=== PATIENT | female | born 1965 | race Caucasian/White ===

== ENCOUNTER → 2018-04-18 15:08 | Outpatient (CLI) | payer MEDICAID, SELFPAY ==
[2018-04-18 13:38] VITALS: BMI 20.3
--- NOTE | 2018-04-18 15:11 | RAD_ITS ---
STUDY: X-RAY - LEFT WRIST REASON FOR EXAM: Female, 52 years old. Pain TECHNIQUE: 3 view(s) of the wrist were obtained. COMPARISON: None. FINDINGS: Normal visualized distal radius and ulna. Normal radiocarpal articulation. Normal distal radioulnar articulation. Normal carpal bones. Normal carpal articulations. There is degenerative arthrosis of the carpometacarpal articulation of the thumb. Normal second through fifth carpometacarpal articulations. Normal visualized metacarpal bones. The soft tissue structures are unremarkable. RAD/Wrist min 3 Views IMPRESSION: Mild degenerative changes of the first metacarpal greater multangular joint. Electronically Signed: Rodney Garcia MD at 16:08 EST , Service support ,
--- NOTE | 2018-04-18 15:15 | RAD_ITS ---
STUDY: X-RAY - RIGHT WRIST REASON FOR EXAM: Female, 52 years old. Pain TECHNIQUE: 3 view(s) of the wrist were obtained. COMPARISON: None. FINDINGS: Normal visualized distal radius and ulna. Normal radiocarpal articulation. Normal distal radioulnar articulation. Normal carpal bones. Normal carpal articulations. Normal carpometacarpal articulation of the thumb. Normal second through fifth carpometacarpal articulations. Normal visualized metacarpal bones. The soft tissue structures are unremarkable. RAD/Wrist min 3 Views IMPRESSION: Normal x-ray examination of the wrist. Electronically Signed: Rodney Garcia MD at 16:38 EST , Service support ,
--- OUTSIDE RECORDS SUMMARY | 2018-06-23 14:26 | XMS RPT_ITS ---
:1965 Author Organization [place] Support Name Relationship Address Phone D Unavailable Unavailable Unavailable REPP, HARJEET Unavailable Unavailable + [place] [address] MARIA ANTONIA ALTAMIRANO Unavailable Unavailable + MARIA ANTONIA ALTAMIRANO Unavailable Unavailable + REPP, HARJEET Unavailable Unavailable + REPP, YARON Unavailable [address] + [place] [address] D Unavailable Unavailable Unavailable REPP, HARJEET Unavailable [facility] + [place] [address] D Unavailable Unavailable Unavailable REPP, HARJEET Unavailable [facility] [address] + [place] [address] D Unavailable Unavailable Unavailable REPP, HARJEET Unavailable [facility] [address] + [place] [address] MARIA ANTONIA ALTAMIRANO Unavailable Unavailable + MARIA ANTONIA ALTAMIRANO Unavailable Unavailable + REPP, HARJEET Unavailable Unavailable + REPP, YARON Unavailable [address] + [place] [address] MARIA ANTONIA PATTON Unavailable Unavailable + MARIA ANTONIA ALTAMIRANO Unavailable [address] + [place] [address] EVELIA MARIA ANTONIA Unavailable [address] + [place] [address] BEATRIS ALTAMIRANOZABETH Unavailable [address] + [place] [address] GHRAM, MARIA ANTONIA Unavailable Unavailable + GHRAM, MARIA ANTONIA Unavailable Unavailable + GHRAM, MARIA ANTONIA Unavailable Unavailable + EVELIA, MARIA ANTONIA Unavailable [address] + [place] [address] EVELIA, MARIA ANTONIA Unavailable [address] + [place] [address] EVELIA, MARIA ANTONIA Unavailable [address] + [place] [address] EVELIA, MARIA ANTONIA Unavailable Unavailable + EVELIA, MARIA ANTONIA Unavailable Unavailable + REPP, HARJEET Unavailable Unavailable + REPP, YARON Unavailable [address] + [place] [address] EVELIA, MARIA ANTONIA Unavailable Unavailable + EVELIA, MARIA ANTONIA Unavailable Unavailable + REPP, HARJEET Unavailable Unavailable + REPP, YARON Unavailable [address] + [place] [address] EVELIA, MARIA ANTONIA Unavailable Unavailable + EVELIA, MARIA ANTONIA Unavailable Unavailable + REPP, HARJEET Unavailable Unavailable + REPP, YARON Unavailable [address] + [place] [address] EVELIA, MARIA ANTONIA Unavailable Unavailable + EVELIA, MARIA ANTONIA Unavailable Unavailable + REPP, HARJEET Unavailable Unavailable + REPP, YARON Unavailable [address] + [place] [address] EVELIA, MARIA ANTONIA Unavailable Unavailable + EVELIA, MARIA ANTONIA Unavailable Unavailable + REPP, HARJEET Unavailable Unavailable + REPP, YARON Unavailable [address] + [place] [address] Care Team Providers Name Role Phone PHUONG MONAHAN, VALERIO Serrano Attending Unavailable VIRGILIO, LUCHO Primary Care Unavailable [employer], MS. TINSLEY Attending Unavailable VIRGILIO, LUCHO Primary Care Unavailable VIRGILIO, LUCHO Attending Unavailable VIRGILIO, LUCHO Primary Care Unavailable VIRGILIO, LUCHO Attending Unavailable VIRGILIO, LUCHO Primary Care Unavailable [facility], DR. TAPIA Attending Unavailable VIRGILIO, LUCHO Primary Care Unavailable [employer], MS. TINSLEY Attending Unavailable VIRGILIO, LUCHO Primary Care Unavailable [employer], MS. TINSLEY Attending Unavailable VIRGILIO, LUCHO Primary Care Unavailable Susana, Dr. Pamela Gloria Admitting Unavailable Susana, Dr. Pamela Gloria Attending Unavailable Eritrean, Dr. Bill Ceballos Attending Unavailable Eritrean, Dr. Bill Ceballos Admitting Unavailable Armani, Dr. Leisa Booth Admitting Unavailable Armani, Dr. Leisa Booth Attending Unavailable Oscar, Dr. Charles Admitting Unavailable Oscar, Dr. Charles Attending Unavailable Elodia, Dr. Shamar Bonilla Admitting Unavailable Elodia, Dr. Shamar Bonilla Attending Unavailable Vaibhav CHEMICAL TEST ENGINEER, Shayy N Admitting Unavailable Vaibhav Shayy DURON Attending Unavailable VAIBHAV, SHAYY AUDREY Admitting Unavailable SUSANAPAMELA Attending Unavailable VAIBHAV, SHAYY AUDREY Referring Unavailable VAIBHAV, SHAYY AUDREY Primary Care Unavailable ABRAHAM PATEL Attending Unavailable VAIBHAV, SHAYY AUDREY Primary Care Unavailable AMANDA LIGHT Attending Unavailable VAIBHAV, SHAYY AUDREY Referring Unavailable VAIBHAV, SHAYY AUDREY Primary Care Unavailable VAIBHAV, SHAYY AUDREY Admitting Unavailable MARY KATE MAURO Attending Unavailable VAIBHAV, SHAYY AUDREY Referring Unavailable VAIBHAV, SHAYY AUDREY Primary Care Unavailable Daryn Murray Attending Unavailable Yuri Salas, Zurdo Referring Unavailable Daryn Murray Attending Unavailable Daryn Murray Referring Unavailable Yuri Salas, Zurdo Primary Care Unavailable Daryn Murray Attending Unavailable Daryn Murray Referring Unavailable Yuri Salas, Zurdo Primary Care Unavailable Daryn Murray Attending Unavailable Kishor, Christa Primary Care Unavailable Daryn Murray Referring Unavailable PROBLEMS PROBLEMS DATE TYPE CONDITION / CODE ATTENDING STATUS SOURCE 04/18/2018 Unknown M25.531 - Pain in Daryn Murray Active [place] right wrist / Community M25.531(ICD-10) Hospital Repository 04/18/2018 Unknown M25.532 - Pain in Daryn Murray Active [place] left wrist / Community M25.532(ICD-10) Hospital Repository 02/21/2018 Admitting Carpal tunnel MAURO, [facility] diagnosis syndrome, bilateral [place] Three upper limbs / Repository G56.03(ICD-10) 02/21/2018 Admitting Pain in right wrist MAURO [facility] diagnosis / M25.531(ICD-10) [place] Three Repository 02/21/2018 Admitting Pain in left wrist / [facility]O, [facility] diagnosis M25.532(ICD-10) [place] Three Repository 02/21/2018 Admitting Anesthesia of skin / MA[facility]O, [facility] diagnosis R20.0(ICD-10) [place] Three Repository 02/21/2018 Admitting Paresthesia of skin MAURO, [facility] diagnosis / R20.2(ICD-10) [place] Repository 12/05/2017 Ad[facility] Three Repository 11/17/2017 Admitting Change in bowel [facility] diagnosis habit / N. Three R19.4(ICD-10) Repository 11/17/2017 Admitting Pain in thoracic [facility] diagnosis spine / N. Three M54.6(ICD-10) Repository 11/17/2017 Admitting Other chronic pain / [facility] diagnosis G89.29(ICD-10) N. Three Repository 11/17/2017 Admitting Pain in left hip / [facility] diagnosis M25.552(ICD-10) N. Three Repository 11/17/2017 Admitting Low back pain / [facility] diagnosis M54.5(ICD-10) N. Three Repository 11/17/2017 Admitting Other intervertebral [facility] diagnosis disc degeneration, N. Three lumbosacral region / Repository M51.37(ICD-10) 11/17/2017 Admitting Cervicalgia / SUSANA [facility] diagnosis M54.2(ICD-10) N. Three Repository 11/17/2017 Admitting Full incontinence of PAMELA MEZA Active [facility] diagnosis feces / N. Three R15.9(ICD-10) Repository 06/08/2017 Admitting Dysuria / LORSON SHARAN, Active [facility] Diagnosis R30.0(ICD-10) MS. CHRISTA Swan Repository PROCEDURES PROCEDURES No Procedure Records FoundRESULTS RESULTS OT GENERAL EVALUATION Observed: 04/26/2018 Status: F Source: [place] 11:58 AM [facility] REPOSITORY [facility] Occupational Therapy [facility] [address] [place] [address] / REHABILITATION SERVICES INITIAL EVALUATION MR#: [id number] Acct: [id number] Name: MARYSE PISANO Rep #: [id number] : 1965 52 From: Jeane Ambrose Referring Dr.: YASMANY Murray Status: REG R Insurance: [employer] Date: SELF PAY INSURANCE Patient's Visit Information MARYSE PISANO is a 52 year old F, referred to Occupational Therapy by YASMANY Simons, with a diagnosis of Bilateral CTS and R lateral epicondylitis. Date of Evaluation: 04/26/18 Occupational Therapist: Jeane Ambrose - Subjective Subjective: Arrived and noted that had nerve conduction in 2018 in [place] at [facility]. She noted that she had positive results for CTS in B wrists. She noted that doctor came in and noted that she had an area of concern in neck and needed to see neurologist. She is concerned about this. She has not since followed up with neurologist. She noted she recently moved from [place] to [place]. - Pain Bilateral Hand 5 Pain Intensity Range: 5 Right Elbow 8 Pain Intensity Range: 8 - Objective Concerns: Pt. noted previous nerve conduction noted B CTS but also cervical involvement in which it was recommended she see a neurologist. Will treat CTS and lateral epicondylitis on R UE but if no relief is noted within 2-4 weeks then treatment will be terminated and she will be sent back to doctor. - ROM Elbow: R 0-126, L 0-131 Forearm: WFL Wrist: Flexion R 0-60, L 0-72; extension R 0-72, L 0-47 CMC: WFL MP: WFL PIP: WFL DIP: WFL ROM Comments: Pain with all movements. - Strength In Home Sales Consultant: flexed position R 58, L 75 ; Extended R 40, L 54 Lateral Pinch: R 10, L 14 Tripod Pinch: R 12, L 14 Tip-to-Tip Pinch: R 8, L 7 Strength Comments: decrease in pain in RUE. - Edema Other: none noted at this time. - Sensation Thumb: R 2.83, L 2.83 Index: R 2.83, L 2.83 Middle: R 2.83, L 2.83 Ring: R 2.83, L 2.83 Little: R 2.83, L 2.83 Kinesthesia: Normal - Right, Normal - Left Proprioception: Normal - Right, Normal - Left - Nine Hole Peg Right: 33.20 S Left: 30.10 S - Special Tests Phalen's (Carpal Tunnel): POSITIVE - Quick DASH-Disab of Arm,Shoulder AND Hand Quick DASH Score: 59.0900 - Carpal Tunnel Syndrome Total Score of Symptom AND Functional Sections: 32 - Goals Goal:: Maryse to increased B manager clinical services strength by 15-20 lbs to promote increased manager clinical services and strengthening for B UE to promote increased ROM by d/c. Goal:: Maryse to complete pain management techniques 4/5 trials 80% of the time to promote increased ability to complete functional tasks by d/c. Goal:: Maryse to demonstrate understanding of proper wrist and UE mechanics to decrease pain and promote function performance 4/5 trials 80% of the time by d/c. Goal:: Maryse to be (i) to complete HEP to promote increased strength and endurance of B UE and manage symptoms of pain 4/5 trials 80% of the time by d/c. Goal:: Melssia to be (i) to understand and demonstrate compensations to complete fx daily tasks to promote decrease in pain and movements that cause increase in symptoms 4/5 trials 80% of the time by d/c. - Rehabilitation General Assessment: Arrived for OT evaluation today, 04/26/18. She has been experiencing symptoms of CTS and lateral epicondylitis for last three months. She noted nerve conduction completed and confirmed CTS in [place]. She noted further cervical involvement. Skilled OT needed to complete treatment to R elbow and B wrists to promote ROM, strength, decrease in pain symptoms, and compensations to manage pain with ADL/IADLS. Rehabilitation Potential: Good - Anticipated Interventions Anticipated Interventions: A/AAROM/PROM, Strengthening, Desensitization, Modalities, Orthoses, Joint Protection/Energy Conservation, Ergonomic Education, Fine Motor Coord/Anibal, ADL Training, Caregiver Training, Home Program - Visit Plan Frequency: 2x /Week Duration: 2-4 Weeks General Plan: OT to work on nerve glide (from wrist down and no cervical involvement until further clarification gained), ROM, strength, and general compensations to promote completing ADL/IADLs in pain free or reduced range. TEXT: Thank you for the opportunity to evaluate your patient. For Medicare and Medicare HMO plans, please review the plan of care and approve it. It will need to be FAXED BACK to us at [phone] for Medicare purposes. Please let me know if there are questions or concerns regarding this plan of care. Physician Signature: Date: <Electronically signed by Jeane Ambrose > 04/26/18 1158 CC: EMILY Iverson; YASMANY Murray KMB Signed For Medicare only, by signing this I certify the plan of care. Physicians Signature Date XR ABDOMEN AP Observed: 04/23/2018 Status: F Source: [facility] 2:35 PM [facility]OUND[facility] REPOSITORY ORIGINAL Supine abdomen and pelvis, one view, 04/23/2018. Clinical information: Lower flank pain LEFT side, constipation. COMPARISON: CT abdomen and pelvis 06/07/2017 There is fecal filling of the large bowel without pathologic distention. Gastric folds are outlined by intraluminal gastric air. There is abdominal aortic arteriosclerotic calcification without addition al pathologic abdominal or pelvic calcification. Caudal lung bases are clear. IMPRESSION: Fecal filling of the colon without features of intestinal obstruction. Interpreted By: Alden Randolph MD Preliminary Report By: Alden Randolph MD Electronically Signed By: Alden Randolph MD Dictated Date: 04/23/2018 2:54:45 PM Prelim Date: 04/23/2018 2:54:45 PM Sign Date: 04/23/2018 2:56:44 PM XR SPINE THORACIC 3 Observed: 04/23/2018 Status: F Source: [facility] VIEWS 2:34 PM [facility] REPOSITORY ORIGINAL XR SPINE THORACIC 3 VIEWS, 04/23/2018 2:50 PM INDICATION: pain, constipation COMPARISON: October 2015 FINDINGS: Alignment is within normal limits. The individual vertebral bodies are intact. There is mild disc space narrowing in the central thoracic spine. IMPRESSION: Mild degenerative disc disease, otherwise unremarkable. No significant interval change. Interpreted By: Alden Pisano MD Preliminary Report By: Alden Pisano MD Electronically Signed By: Alden Pisano MD Dictated Date: 04/23/2018 6:42:06 PM Prelim Date: 04/23/2018 6:42:06 PM Sign Date: 04/23/2018 6:42:44 PM XR SPINE LUMBAR Observed: 04/23/2018 Status: F Source: [facility] W/OBLIQUES 4 VIEWS 2:34 PM [facility] REPOSITORY ORIGINAL XR SPINE LUMBAR W/OBLIQUES 4 VIEWS CLINICAL STATEMENT: pain, constipation. COMPARISON: CT abdomen and pelvis on 06/07/2017. Lumbar spine x-ray series on 07/02/2015. FINDINGS: There are 5 lumbar vertebrae. The lumbar spine alignment is normal. Vertebral bodies have normal shape. Disc spaces are well-maintained. Facet joints show mild degenerative narrowing and spur formation at L4-L5 and L5-S1. There is n o defect of pars interarticularis. Sacroiliac joints are normal. Abdominal aorta is atherosclerotic but nonaneurysmal. IMPRESSION: Mild degenerative facet arthrosis in lower lumbar spine. No subluxation, fracture, or acute findings. IMPRESSION: No compression deformity or significant listhesis. Interpreted By: Jean Pierre Stovall MD Preliminary Report By: Jean Pierre Stovall MD Electronically Signed By: Jean Pierre Stovall MD Dictated Date: 04/24/2018 1:08:06 AM Prelim Date: 04/24/2018 1:08:06 AM Sign Date: 04/24/2018 1:12:13 AM ORTHOPEDIC VISIT Observed: 04/19/2018 Status: F Source: [place] REPORT 12:56 PM [facility] REPOSITORY [facility] [address] [place] [address] [address] [place] [address] OFFICE VISIT Date of Service: 04/18/18 MR#: [id number] Acct: [id number] Name: MARYSE PISANO Rep #: [id number] : 1965 Provider: YASMANY Murray Age/Sex: 52/F [place] [facility] [place] Signed Intake Vital Signs04/18/18 Height 5 ft 3 in 04/18/18 Weight: 115 lb 04/18/18 Body Mass Index (BMI) 20.3 Intake Visit Reasons: bilat carpal tunnel Allergies amitriptyline HCl [From Elavil] Allergy (Verified 06/24/13 21:26) Nausea aspirin [ASA] Allergy (Verified 06/24/13 21:26) Nausea bupropion HCl [From Wellbutrin] Allergy (Verified 06/24/13 21:25) Other etodolac [From Lodine] Allergy (Verified 08/08/14 17:26) Unknown ibuprofen Allergy (Verified 08/08/14 17:26) Unknown Penicillins [PCN] Allergy (Verified 06/24/13 21:25) Hives poison librado extract Allergy (Verified 11/09/14 18:28) Swelling poison oak extract Allergy (Verified 11/09/14 18:28) Swelling rofecoxib [From Vioxx] Allergy (Verified 06/24/13 21:27) Other venom-honey bee [bee venom (honey bee)] Allergy (Verified 11/09/14 18:28) Swelling TAPE Adverse Reaction (Uncoded 11/09/14 18:28) Other Medications Buspirone HCl 20 mg PO TID 01/08/15 [History Confirmed 01/08/15] Clonazepam [Klonopin] 1 mg PO TID PRN PRN 01/08/15 [History Confirmed 01/08/15] Diazepam [Valium] 2 mg PO TID PRN PRN #15 tab 01/08/15 [Rx] Duloxetine HCl 30 mg PO DAILY 01/08/15 [History Confirmed 01/08/15] Duloxetine HCl 60 mg PO DAILY 01/08/15 [History Confirmed 01/08/15] Ibuprofen [Motrin] 800 mg PO TID PRN PRN #20 tab 01/08/15 [Rx] Levothyroxine [Synthroid] 75 mcg PO DAILY 01/08/15 [History Confirmed 01/08/15] Oxycodone HCl/Acetaminophen [Percocet 5/325] 1 - 2 tab PO Q4H PRN PRN #20 tab 01/08/15 [Rx] Pantoprazole Sodium [Protonix] 40 mg PO DAILY 01/08/15 [History Confirmed 01/08/15] traZODone [Desyrel] 1 - 3 tab PO QHS PRN PRN 01/08/15 [History Confirmed 01/08/15] PFSH Social History Smoking Status: Current every day smoker HPI bilat carpal tunnel: Details: MARYSE PISANO is a 52 year old F here today for bilateral carpal tunnel, she had an EMG in February and was told by the neurologist doing the test that she had mild in the left and moderate in the right. There is numbness in the thumb, index and middle fingers as well as weakness and beginning to drop things. She states that she is struggling to be able to use her hands normally. Ortho Exam Right Wrist/Hand Skin/Wound: No Swelling, No Ecchymosis Right Wrist: Yes ROM-Extension 0-60, ROM-Flexion 0-80, ROM- Pronation 0-80, Durken's Test and ROM-Supination 0-90; no Snuffbox tenderness or Josh's Test Motor: EPL: 5, FDP-2: 5, 1st Dorsal Interosseous: 5, APB: 5 Sensation: Radial: I, Ulnar: I, Median: D WRIST: Patient has no evident abnormalities on inspection of the wrist. She has no localized or generalized swelling. She has no bruising, ecchymosis, or other skin changes. Patient has full range of motion of the wrist and full range of motion of the fingers. She does not have any atrophy of the thenar eminence or the hypo-thenar eminence. Patient does have a positive Rebekah's test in office. Left Wrist/Hand Skin/Wound: No Swelling, No Ecchymosis Left Wrist: Yes ROM-Extension 0-60, Yes ROM-Flexion 0-80, Yes ROM-Pronation 0-80, Yes ROM-Supination 0-90 and Yes Durken's Test; no Snuffbox tenderness Motor: EPL: 5, FDP-2: 5, 1st Dorsal Interosseous: 5, APB: 5 Sensation: Radial: I, Ulnar: I, Median: D WRIST: Patient has no evident abnormalities on inspection of the left wrist. She has no localized or generalized swelling. There is no bruising, ecchymosis, or other skin changes. Patient does not have any evident atrophy of the thenar or hypothenar eminence. She has normal range of motion of the wrist in the fingers. She does have a positive Rebekah's test here. Right Elbow ROM: Yes Flexion 0-140, Extension 0, Supination 0-90 and Pronation 0-80 Test: Yes TTP Lateral Epicondyle, Yes Pain w/ resist wrist ext, No Pain w/ resist wrist flex, No Varus Stress Test, No Valgus Stress Test Assessment AND Plan Problems 1. Bilateral carpal tunnel syndrome G56.03 2. Right lateral epicondylitis M77.11 Plan At this time patient does have signs and symptoms consistent with bilateral carpal tunnel syndrome. At this time we do not have the EMG reports and have requested those to be sent to our office so that we are able to look at the other nerve involvement such as the ulnar nerve. At this time though she does not have any atrophy or any weakness suggestive of ulnar involvement. Today in the office we did discuss treatment options for the wrist. She has currently been wearing night splints for the past 3-4 weeks which is something I deafly would like her to continue for the next few weeks. Patient is not interested in any type of injections into the carpal tunnel region at this time. She is not sure that she wants to have surgery at this time either. As a result after discussion we are going to continue with nighttime bracing for another several weeks and will also start her in some occupational therapy to start to work on some strengthening and stabilization of the wrist. At that time she will return to our office with our surgeon to discuss how these conservative measures have worked and whether or not she would like to proceed with carpal tunnel release. She can follow-up sooner and if she has any increasing pain, any swelling of the wrist, worsening numbness or tingling, or any other symptoms. Otherwise we will recheck in probably 1 month. All of patient's questions were answered at this time. This note was generated with [employer] dictation software. It may contain incorrect words, spelling, and punctuation that were not noted in checking the note before signing. Orders Orders: Plan Detail Follow Up 1 Month Coding Level of Care Code Off vis,new,level 3 Diagnoses Bilateral carpal tunnel syndrome G56.03 Right lateral epicondylitis M77.11 04/19/18 1256 <Electronically signed by Daryn JADE> Date Daryn JADE Cosigner Signature: Date (if applicable) CC: WRIST MIN 3 VIEWS Observed: 04/18/2018 Status: F Source: [place] 3:15 PM [facility] REPOSITORY [facility] Imaging Services [address] [place] [id number] Wrist min 3 Views MR#: [id number] Acct: [id number] Name: MARYSE PISANO Rep #: [id number] : 1965 F 52 From: Rodney Garcia MD PCP: Zurdo Welch Jr., MD Status: REG CLI Study: Wrist min 3 Views Date of Exam: 04/18/18 Exam# [id number] Ordering Dr: Daryn Murray STUDY: X-RAY - RIGHT WRIST REASON FOR EXAM: Female, 52 years old. Pain TECHNIQUE: 3 view(s) of the wrist were obtained. COMPARISON: None. FINDINGS: Normal visualized distal radius and ulna. Normal radiocarpal articulation. Normal distal radioulnar articulation. Normal carpal bones. Normal carpal articulations. Normal carpometacarpal articulation of the thumb. Normal second through fifth carpometacarpal articulations. Normal visualized metacarpal bones. The soft tissue structures are unremarkable. RAD/Wrist min 3 Views IMPRESSION: Normal x-ray examination of the wrist. Electronically Signed: Rodney Garcia MD at 16:38 EST , Service support , CC: YASMANY Murray; Zurdo Welch Jr., MD Cane Furniture Maker: Signed WRIST MIN 3 VIEWS Observed: 04/18/2018 Status: F Source: [place] 3:11 PM [facility] REPOSITORY [facility] [place] [address] Wrist min 3 Views MR#: [id number] Acct: [id number] Name: MARYSE PISANO Rep #: [id number] : 1965 F 52 From: Rodney Garcia MD PCP: Zurdo Welch Jr., MD Status: REG CLI Study: Wrist min 3 Views Date of Exam: 04/18/18 Exam# [id number] Ordering Dr: Daryn Murray STUDY: X-RAY - LEFT WRIST REASON FOR EXAM: Female, 52 years old. Pain TECHNIQUE: 3 view(s) of the wrist were obtained. COMPARISON: None. FINDINGS: Normal visualized distal radius and ulna. Normal radiocarpal articulation. Normal distal radioulnar articulation. Normal carpal bones. Normal carpal articulations. There is degenerative arthrosis of the carpometacarpal articulation of the thumb. Normal second through fifth carpometacarpal articulations. Normal visualized metacarpal bones. The soft tissue structures are unremarkable. RAD/Wrist min 3 Views IMPRESSION: Mild degenerative changes of the first metacarpal greater multangular joint. Electronically Signed: Rodney Garcia MD at 16:08 EST , Service support , CC: YASMANY Murray; Zurdo Welch Jr., MD Cane Furniture Maker: Signed CMP Collected: 03/29/2018 Status: F Source: [facility] 4:08 PM [facility]ATION REPOSITORY TYPE CODE TESTS RESULT OUT OF REFERENCE UNITS RANGE LAB GLU(LOINC) 70-105 mg/dL Glucose Level 94 LAB NA(LOINC) 136-145 mmol/L Sodium Level 139 LAB K(LOINC) 3.5-5.1 mmol/L Potassium Level 4.0 LAB CL(LOINC) 98-107 mmol/L Chloride 103 LAB CO2(LOINC) 22-29 mmol/L CO2 26 LAB EBAL(LOINC mEq/L ) Electrolyte Balance 10.0 LAB BUN(LOINC) 7-18 mg/dL BUN High 21 LAB CRE(LOINC) 0.55-1.02 mg/dL Creatinine Lvl (s) 0.79 LAB BC(LOINC) 7-27 ratio BUN/Creatinine 27 Ratio LAB CA(LOINC) 8.4-10.2 mg/dL Calcium Lvl 9.4 LAB PROT(LOINC 6.4-8.2 G/dL ) Total Protein 6.7 LAB ALB(LOINC) 3.5-5.0 G/dL Albumin Level 4.0 LAB GLB(LOINC) G/dL Globulin 2.7 LAB AG(LOINC) 1.1-2.5 ratio A/G Ratio 1.5 LAB BILT(LOINC 0.2-1.0 mg/dL ) Bili Total 0.4 LAB AP(LOINC) 40-135 U/L Alk Phos 131 LAB AST(LOINC) 10-40 U/L AST/SGOT 17 LAB ALT(LOINC) 10-35 U/L ALT/SGPT 13 Performed By: #### CMP, GFR, ESR, VIDH #### [address] [address] #### CBC, ADIFF, ANEU, HIVRP #### [address] [address] .GFR Collected: 03/29/2018 Status: F Source: [facility] 4:08 PM [facility] REPOSITORY TYPE CODE TESTS RESULT OUT OF REFERENCE UNITS RANGE LAB GFRAA(LOINC ml/min/1.73 ) sqm GFR 93 Panamanian Result Comment: GFR Population mean for , Non- Americans Ages 20-29 = 116 mL/min/1.73 sq.m. Ages 30-39 = 107 mL/min/1.73 sq.m. Ages 40-49 = 99 mL/min/1.73 sq.m. Ages 50-59 = 93 mL/min/1.73 sq.m. Ages 60-69 = 85 mL/min/1.73 sq.m. Ages 70+ = 75 mL/min/1.73 sq.m. Chronic Kidney Disease: Less than 60 mL/min/1.73 square meters End Stage Renal Disease: Less than 15 mL/min/1.73 square meters LAB GFRNO(LOINC) ml/min/1.73sqm GFR Non- 77 Result Comment: GFR Population mean for , Non- Americans Ages 20-29 = 116 mL/min/1.73 sq.m. Ages 30-39 = 107 mL/min/1.73 sq.m. Ages 40-49 = 99 mL/min/1.73 sq.m. Ages 50-59 = 93 mL/min/1.73 sq.m. Ages 60-69 = 85 mL/min/1.73 sq.m. Ages 70+ = 75 mL/min/1.73 sq.m. Chronic Kidney Disease: Less than 60 mL/min/1.73 square meters End Stage Renal Disease: Less than 15 mL/min/1.73 square meters Performed By: #### CMP, GFR, ESR, VIDH #### [facility] [address] [place] [id number] #### CBC, ADIFF, ANEU, HIVRP #### [address] [address] CBC Collected: 03/29/2018 Status: F Source: [facility] 4:08 PM [facility] REPOSITORY TYPE CODE TESTS RESULT OUT OF REFERENCE UNITS RANGE LAB WBC(LOINC) 4.60-10.80 10 3/mcL WBC 8.70 LAB RBCCT(LOINC 4.20-5.40 10 6/mcL ) RBC 4.83 LAB HGB(LOINC) 12.0-16.0 G/dL Hgb 13.5 LAB HCT(LOINC) 37.0-47.0 % Hct 41.7 LAB MCV(LOINC) 80.0-94.0 fL MCV 86.2 LAB MCH(LOINC) 27.0-31.2 pg MCH 28.0 LAB MCHC(LOINC) 33.0-37.0 G/dL Low MCHC 32.5 LAB RDW(LOINC) 11.5-14.5 % RDW 14.0 LAB PLT(LOINC) 130-400 10 3/mcL Platelet 268 LAB MPV(LOINC) 7.4-10.4 fL MPV 8.6 Performed By: #### CMP, GFR, ESR, VIDH #### [address] [address] #### CBC, ADIFF, ANEU, HIVRP #### [address] [address] .AUTO DIFF Collected: 03/29/2018 Status: F Source: [facility] 4:08 [facility] REPOSITORY TYPE CODE TESTS RESULT OUT OF REFERENCE UNITS RANGE LAB ALYCE(LOINC) 37.0-80.0 % Neutrophil % 49.7 LAB LYM(LOINC) 10.0-50.0 % Lymphocyte % 40.5 LAB MON(LOINC) 1.7-13.0 % Monocyte % 7.5 LAB EO(LOINC) 0.0-7.0 % Eosinophil % 1.8 LAB BAS(LOINC) 0.0-2.5 % Basophil % 0.5 LAB ABLYM(LOIN 0.77-3.85 10 3/mcL C) Lymphocyte, 3.50 Absolute LAB NELI(LOINC 0.15-1.00 10 3/mcL ) Monocyte, 0.70 Absolute LAB AEOS(LOINC 0.00-0.40 10 3/mcL ) Eosinophil, 0.20 Absolute LAB ABAS(LOINC 0.00-0.19 10 3/mcL ) Basophil, 0.00 Absolute Performed By: #### CMP, GFR, ESR, VIDH #### [address] [address] #### CBC, ADIFF, ANEU, HIVRP #### [address] [address] .NEUABS Collected: 03/29/2018 Status: F Source: [facility] 4:08 PM [facility] REPOSITORY TYPE CODE TESTS RESULT OUT OF REFERENCE UNITS RANGE LAB ANEU(LOINC) 2.85-6.16 10 3/mcL Neutrophil, 4.30 Absolute Performed By: #### CMP, GFR, ESR, VIDH #### [place] [address] #### CBC, ADIFF, ANEU, HIVRP #### [address] [address] ESR Collected: 03/29/2018 Status: F Source: [facility] 4:08 [facility] REPOSITORY TYPE CODE TESTS RESULT OUT OF REFERENCE UNITS RANGE LAB ESR(LOINC) 0-30 mm/hr Erythrocyte Sed Rate 6 Performed By: #### CMP, GFR, ESR, VIDH #### [place] [address] #### CBC, ADIFF, ANEU, HIVRP #### [address] [address] HIVRP Collected: 03/29/2018 Status: F Source: [facility] 4:08 [facility] REPOSITORY TYPE CODE TESTS RESULT OUT OF RANGE REFERENCE UNITS LAB HIVRO(LOIN Non-Reactive C) Rapid HIV 1/2 Antibody Non-Reactive LAB HIVROI(EVANGELIST NC) Unknown RHIV 1/2 Ab Int Non-Reactive LAB HIVAG(LOIN Non-Reactive C) HIV p24 Antigen Non-Reactive LAB P24AGI(EVANGELIST NC) Unknown HIV P24 Int Non-reactive Performed By: #### CMP, GFR, ESR, VIDH #### [place] [address] #### CBC, ADIFF, ANEU, HIVRP #### [address] [address] VIDH Collected: 03/29/2018 Status: F Source: [facility] 4:08 PM [facility] REPOSITORY TYPE CODE TESTS RESULT OUT OF RANGE REFERENCE UNITS LAB VIDH(LOINC) ng/mL Vit. D 41 25-Hydroxy Result Comment: Interpretive Values Based on Total 25(OH)D: Severe Deficiency <20 ng/mL Mild to Moderate Deficiency 20-30 ng/mL Optimum Levels 30-100 ng/mL Toxicity Possible >100 ng/mL Performed By: #### CMP, GFR, ESR, VIDH #### [address] [address] #### CBC, ADIFF, ANEU, HIVRP #### [place] [address] [place], [place] [address] URINALYSIS, ROUTINE Collected: 02/19/2018 Status: F Source: [facility] 12:10 AM [facility] REPOSITORY TYPE CODE TESTS RESULT OUT OF REFERENCE UNITS RANGE LAB COLOR Normal Color, Urine Yellow LAB CHAUR Normal Character Clear LAB SPGRUR 1.003-1.029 High Specific 1.035 Clio,Urine LAB PHUR 4.5-8.0 Normal pH,Urine 6.0 LAB GLUCUR NEG;NEGATIVE mg/dL Normal Glucose,Urine Negative LAB KETUR NEG;NEGATIVE mg/dL Normal Ketone,Urine Negative LAB PROTUR NEG;NEGATIVE mg/dL Normal Protein,Urine Negative LAB BLDUR NEG;NEGATIVE Normal Blood,Urine Negative LAB NITUR NEG;NEGATIVE Normal Nitrite,Urine Negative LAB BILIUR NEG;NEGATIVE Normal Bilirubin,Urine Negative LAB UROUR <2 mg/dL Normal Urobilinogen,Ur < 2.0 ine Result Comment: Urobilinogen, Urine Reference Range: <2.0 mg/dL LAB LEUESTUR Negative Leuk.Esterase,Urine Abnormal Trace LAB WBCUR 0-5 /HPF Normal WBC,Urine 5 LAB RBCUR 0-5 /HPF Normal RBC,Urine < 1 LAB BACTUR NS;RARE /HPF Normal Bacteria,Urine Rare Performed By: #### UA #### Unless otherwise noted, all testing performed by [address], [place] [address] CLIA: [id number] Meter And Service Line Inspector: Jose L Bowling M.D. CT ABDO,PELVIS IV Observed: 02/18/2018 Status: F Source: [facility] CONTRAST ONLY 10:28 PM [facility] REPOSITORY Final Report Accession No: [id number] Performed: Feb 18 2018 10:28PM Examination: CT ABDO,PELVIS IV CONTRAST ONLY CT ABDO, PELVIS IV CONTRAST ONLY CLINICAL STATEMENT: Abdominal pain COMPARISON: None. TECHNIQUE: CT examination of the abdomen and pelvis following the administration of 75 mL of Isovue-370 intravenous contrast. Coronal and sagittal reformations were performed. Dose reduction techniques were achieved by using automated exposure control and/or adjustment of mA and/or kV according to patient size and/or use of iterative reconstruction technique. FINDINGS: Limited evaluation of the lower chest demonstrates mild bibasilar dependent atelectasis. The visualized portion of the heart appears unremarkable. The distal esophagus is collapsed. There is tortuosity of the thoracic aorta. The liver is homogeneous in attenuation. There is a tiny low-density lesion in the anterior segment of the right hepatic lobe (series 2, image 18), too small to further characterize. There is mild intrahepatic and extrahepatic biliary ductal dilation, likely related to cholecystectomy. The spleen, pancreas, and bilateral adrenal glands appear unremarkable. The kidneys enhance symmetrically without any hydronephrosis or hydroureter. The bladder appears unremarkable. The uterus is surgically absent. No adnexal lesion. Evaluation of the GI tract demonstrates normal caliber of small and large bowel loops. No bowel obstruction. There are multiple fluid-filled small bowel loops in the pelvis, nonspecific. The appendix is surgically absent. No intraperitoneal free air or free fluid. No lymphadenopathy by CT size criteria. The abdominal aorta is normal in caliber with scattered areas of atherosclerotic calcification. Bone windows demonstrate a sclerotic lesion in the posterior aspect of the right acetabulum (series 2, image 110), likely represents a bone island. IMPRESSION: No acute abdominopelvic abnormality. Fluid-filled small bowel loops in the pelvis are nonspecific, can be related to enteritis. Mild intra and extrahepatic biliary ductal dilation is likely related to cholecystectomy. Interpreting Physician: MANJU HERNANDEZ M.D. Trans: lwolfe : cc: CBC WITH DIFF Collected: 02/18/2018 Status: F Source: [facility] 8:35 PM [facility] REPOSITORY TYPE CODE TESTS RESULT OUT OF RANGE REFERENCE UNITS LAB WBC 3.4-10.6 K/mcL WBC Normal 9.5 LAB RBC 3.7-5.0 M/mcL RBC Normal 4.21 LAB HGB 11.6-15.4 g/dL Normal Hemoglobin 12.2 LAB HCT 34.4-44.8 % Normal Hematocrit 36.6 LAB MCV 82.6-98.9 FL MCV Normal 87.0 LAB MCH 27.9-33.9 pg MCH Normal 28.9 LAB MCHC 33.1-35.1 g/dL MCHC Normal 33.3 LAB RDW 10.0-14.4 % RDW Normal 13.7 LAB PLT 162-402 K/mcL Platelet Normal Count 226 LAB MPV 7.0-10.6 FL MPV Normal 8.3 LAB NEUT# 1.2-6.9 K/mcL Normal Neutrophil # 5.4 LAB LYMPH# 1.0-3.7 K/mcL Normal Lymphocyte # 3.4 LAB MONO# 0.1-0.6 K/mcL Monocyte Normal # 0.5 LAB EOS# 0-0.5 K/mcL Normal Eosinophil # 0.2 LAB BASO# 0-0.2 K/mcL Basophil Normal # 0.0 LAB SEGNEU% % Normal Segmented Neut % 57.3 LAB LYMP% % Normal Lymphocyte% 35.7 LAB MO% % Monocyte Normal % 5.1 LAB EO% % Normal Eosinophil % 1.7 LAB BA% % Basophil Normal % 0.2 Performed By: #### CBCDIF, SEDR #### Unless otherwise noted, all testing performed by [facility] [address] [address] CLIA: [id number] Meter And Service Line Inspector: Jose L Bowling M.D. SED RATE Collected: 02/18/2018 Status: F Source: [facility] 8:35 PM [facility] REPOSITORY TYPE CODE TESTS RESULT OUT OF RANGE REFERENCE UNITS LAB SEDR 0-20 MM/hr. Normal Sed Rate 11 Performed By: #### CBCDIF, SEDR #### Unless otherwise noted, all testing performed by [facility] [address] [address] CLIA: [id number] Meter And Service Line Inspector: Jose L Bowling M.D. EXCEPTION NOTICE Collected: 02/18/2018 Status: F Source: [facility] 7:50 PM [facility] REPOSITORY TYPE CODE TESTS RESULT OUT OF REFERENCE UNITS RANGE LAB EXCEP Normal Exception CBC cancelled Notice due to clotted specimen. Performed By: #### EDCTNI, LIPASE, EXCEP, CMET #### Unless otherwise noted, all testing performed by [facility] [address] [place], [place] [address] CLIA: [id number] Meter And Service Line Inspector: Jose L Bowling M.D. COMPREHENSIVE METABOLIC Collected: 02/18/2018 Status: F Source: [facility] PANEL 7:50 PM [facility] REPOSITORY TYPE CODE TESTS RESULT OUT OF REFERENCE UNITS RANGE LAB GLU 70-99 mg/dL High Glucose 103 Result Comment: This test result might be falsely depressed or falsely elevated on samples drawn from patients taking Sulfasalazine and Sulfapyridine. Venipuncture should occur prior to taking either of these drugs. LAB BUN 8-25 mg/dL BUN 18 LAB CREA 0.40-1.10 mg/dL Creatinine 0.69 LAB eGFR ml/min/1.73sq .m eGFR,NonAfrican-Am erican >=60 Result Comment: Non- GFR Calc eGFR is an estimated Glomerular Filtration Rate based on the value of the patient's serum creatinine. In outpatients, eGFR should be used as a helpful tool in screening for CKD. In inpatients or patients with acute renal failure, eGFR represents the GFR at the moment of the draw and should be used with caution. LAB eGFRB ml/min/1.73sq.m eGFR, -Panamanian >=60 Result Comment: GFR Calc LAB CALCM 8.4-10.2 mg/dL Calcium Low 8.2 LAB NA 135-145 mmol/L Sodium 141 LAB K 3.5-5.1 mmol/L Potassium 4.3 Result Comment: moderate hemolysis, result may be falsely increased. LAB CL 98-108 mmol/L Chloride High 113 LAB CO2 21-32 mmol/L CO2 23 LAB AST 0-45 U/L AST (SGOT) 24 Result Comment: moderate hemolysis, result may be falsely increased. This test result might be falsely depressed or falsely elevated on samples drawn from patients taking Sulfasalazine and Sulfapyridine. Venipuncture should occur prior to taking either of these drugs. LAB ALT 14-65 U/L Low ALT (SGPT) 13 Result Comment: This test result might be falsely depressed or falsely elevated on samples drawn from patients taking Sulfasalazine and Sulfapyridine. Venipuncture should occur prior to taking either of these drugs. LAB ALKP 40-150 U/L Alkaline Phosphatase 127 LAB BILIT 0.3-1.2 mg/dL Bilirubin,Total 0.4 LAB PROT 6.0-8.0 g/dL Protein, Total 6.2 LAB ALB 3.2-5.2 g/dL Albumin 3.4 Performed By: #### EDCTNI, LIPASE, EXCEP, CMET #### Unless otherwise noted, all testing performed by [place] [address] CLIA: [id number] Meter And Service Line Inspector: Jose L Bowling M.D. LIPASE Collected: 02/18/2018 Status: F Source: [facility] 7:50 PM [facility] REPOSITORY TYPE CODE TESTS RESULT OUT OF RANGE REFERENCE UNITS LAB LIPASE 73-393 U/L Normal Lipase 225 Performed By: #### EDCTNI, LIPASE, EXCEP, CMET #### Unless otherwise noted, all testing performed by [place] [address] CLIA: [id number] Meter And Service Line Inspector: Jose L Bowling M.D. ED CARDIAC TROPONIN-I Collected: 02/18/2018 Status: F Source: [facility] 7:50 [facility] REPOSITORY TYPE CODE TESTS RESULT OUT OF RANGE REFERENCE UNITS LAB EDCTNI < 45 ng/L Normal ED Cardiac < 15 Troponin-I Result Comment: Elevation of troponin indicates some degree of myocardial necrosis but unless there is a significant rise and/or fall (if elevated) identified, it unlikely that an acute event has taken place Samples from patients routinely receiving high dose biotin therapy (100-300 mg/day) may show falsely decreased results. Please correlate clinically. Performed By: #### EDCTNI, LIPASE, EXCEP, CMET #### Unless otherwise noted, all testing performed by [place] [address] CLIA: [id number] Meter And Service Line Inspector: Jose L Bowling M.D. KNEE W/ONE OBLIQUE Observed: 12/12/2017 Status: F Source: [facility] 3:33 PM [facility] REPOSITORY Final Report Accession No: [id number] Performed: Dec 12 2017 3:33PM Examination: LEFT KNEE W/ONE OBLIQUE EXAM TYPE: KNEE W/ONE OBLIQUE LEFT EXAM DATE AND TIME: 12/12/2017 3:33 PM EDT INDICATION: 52-year-old female with bilateral knee pain after trauma. COMPARISON: None. TECHNIQUE: 3 views of the left knee. FINDINGS: No acute fracture. Joint alignment is anatomic. Joint spaces are preserved. No significant joint effusion. Soft tissues are within normal limits. IMPRESSION: No acute fracture or traumatic malalignment. Interpreting Physician: MICHELLE DOMINGUEZ D.O. Trans: dcarr : cc: KNEE W/ONE OBLIQUE Observed: 12/12/2017 Status: F Source: [facility] 3:33 PM [facility] REPOSITORY Final Report Accession No: [id number] Performed: Dec 12 2017 3:33PM Examination: RIGHT KNEE W/ONE OBLIQUE EXAM TYPE: KNEE W/ONE OBLIQUE RIGHT EXAM DATE AND TIME: 12/12/2017 3:33 PM EDT INDICATION: 52-year-old female with bilateral knee pain after trauma. COMPARISON: None. TECHNIQUE: 3 views of the right knee. FINDINGS: No acute fracture. Joint alignment is anatomic. Joint spaces are preserved. No significant joint effusion. Soft tissues are within normal limits. IMPRESSION: No acute fracture or traumatic malalignment. Interpreting Physician: MICHELLE DOMINGUEZ D.O. Trans: dcarr : cc: CT CHEST W/CONTRAST Observed: 11/14/2017 Status: F Source: [facility] 4:14 PM [facility] REPOSITORY Final Report Accession No: [id number] Performed: Nov 14 2017 4:14PM Examination: CT CHEST W/CONTRAST TYPE: CT CHEST W/CONTRAST EXAM DATE AND TIME: 11/14/2017 4:14 PM EDT INDICATION: 52 years old Female with chronic back and rib pain. COMPARISON: None. TECHNIQUE: CT scan of chest was performed without contrast. Dose reduction techniques were achieved by using automated exposure control and/or adjustment of mA and/or kV according to patient size and/or use of iterative reconstruction technique. FINDINGS: MEDIASTINUM: Visualized airways are patent. Heart is normal in size without pericardial effusion. Normal caliber thoracic aorta with mild to moderate atherosclerotic changes. No enlarged lymph nodes are identified. PLEURAL CAVITY: Biapical pleural scarring. LUNGS: Hyperinflated lungs with moderate centrilobular emphysematous changes of the upper lungs. Several noncalcified pulmonary nodules (series 3): 4 mm posterior segment right upper lobe (image 24), 2 medial segment right middle lobe pulmonary nodules measuring up to 6 mm (images 66 and 59), multiple right lower lobe noncalcified pulmonary nodules measuring up to 5 mm (image 59, 63 and 70), 4 mm anterior segment left upper lobe (image 44), and 5 mm subpleural superior segment left lower lobe (image 51). CHEST WALL/AXILLA: No axillary lymphadenopathy. VISUALIZED UPPER ABDOMEN: No acute findings. BONES: No destructive lesions. Mild degenerative spondylosis of the midthoracic spine. IMPRESSION: 1. Moderate emphysematous changes. 2. Several noncalcified pulmonary nodules measuring up to 6 mm. Recommend [address] follow-up. 3. No displaced rib fractures. No acute vertebral body compression fractures. 4. Mild degenerative changes of the midthoracic spine. Interpreting Physician: MICHELLE DOMINGUEZ D.O. Trans: bminni : cc: MRI LUMBAR SPINE Observed: 10/29/2017 Status: F Source: [facility] W/O CONT 7:10 PM [facility] REPOSITORY Final Report Accession No: [id number] Performed: Oct 29 2017 7:10PM Examination: MRI LUMBAR SPINE W/O CONT MRI THORACIC SPINE W/O CONT, MRI LUMBAR SPINE W/O CONT HISTORY: Pain, loss of bowel and bladder control. COMPARISON: None. TECHNIQUE: Multiplanar multisequential MR images were performed of the thoracic and lumbar spine without intravenous contrast. FINDINGS: THORACIC SPINE: Alignment within the thoracic spine is unremarkable. There is no evidence of significant marrow edema to suggest acute fracture. No vertebral body compression deformity is evident. There are degenerative endplate changes at the inferior endplate of T7 and T8. Mild diffuse disc desiccation is noted. Spinal cord signal and caliber are unremarkable within the thoracic spine. The facets are anatomically aligned. There is no significant disc herniation creating a significant spinal canal stenosis. Within what is likely the right ninth posterior medial rib there is a 1 x 0.6 cm T1 hypointense/T2 hyperintense ovoid focus (see series 11 image 15, series 10 image 15 and series 9 image 16). Additionally, there is a similar, but smaller-appearing focus within the posterior medial right eighth rib (best seen on the sagittal views such as series 10 image 16 and series 9 image 16). Partially visualized is mild retrolisthesis of C5 on C6 with degenerative disc and endplate changes with possible encroachment on the ventral thecal sac. LUMBAR SPINE: The conus medullaris terminates at the L1-L2 level. Lumbar spine alignment is unremarkable. The facets are anatomically aligned. No evidence of acute fracture is present. The disc spaces are maintained. At T12-L1, there is no significant spinal canal or neural foraminal stenosis. At L1-L2, there is no significant spinal canal or neural foraminal stenosis. At L2-L3, there is no significant spinal canal or neural foraminal stenosis. At L3-L4, there is a minimal disc bulge without significant spinal canal or neural foraminal stenosis. At L4-L5, there is a mild disc bulge and probable small annular fissure (series 2 image 8), as well as mild facet arthrosis without significant spinal canal or neural foraminal stenosis. At L5-S1, there is a disc bulge without significant spinal canal stenosis. There is a perineural sleeve cyst at the right L5-S1 neural foramina causing mild encroachment on the right neural foramina. No paraspinal masses are present. There are several small Tarlov cysts at the sacral levels. There may be a small left renal cyst partially evaluated. IMPRESSION: No acute fracture or evidence of an acute osseous process within the thoracic or lumbar spine. Spinal cord signal and caliber are unremarkable. Mild degenerative changes are noted within the thoracic and lumbar spine as detailed above. Incompletely evaluated is a disc osteophyte complex at C5-C6 which may be causing effacement of the ventral thecal sac. At what is likely the right posterior medial eighth and ninth ribs, there are small nonspecific T2 hyperintense ovoid foci as described above. MRI thoracic spine with and without intravenous contrast to evaluate for enhancement or contrast-enhanced CT chest may be able to better characterize these lesions. If there are suspicious features to these lesions on the aforementioned recommended tests then nuclear medicine bone scan may be helpful to evaluate for increased metabolic uptake. The findings were discussed with Dr. Clifton at 8:40 PM on October 29, 2017. Interpreting Physician: JESSICA WOODALL M.D. Trans: lwolfe : cc: MRI THORACIC SPINE Observed: 10/29/2017 Status: F Source: [facility] W/O CONT 6:43 PM [facility] REPOSITORY Final Report Accession No: [id number] Performed: Oct 29 2017 6:43PM Examination: MRI THORACIC SPINE W/O CONT MRI THORACIC SPINE W/O CONT, MRI LUMBAR SPINE W/O CONT HISTORY: Pain, loss of bowel and bladder control. COMPARISON: None. TECHNIQUE: Multiplanar multisequential MR images were performed of the thoracic and lumbar spine without intravenous contrast. FINDINGS: THORACIC SPINE: Alignment within the thoracic spine is unremarkable. There is no evidence of significant marrow edema to suggest acute fracture. No vertebral body compression deformity is evident. There are degenerative endplate changes at the inferior endplate of T7 and T8. Mild diffuse disc desiccation is noted. Spinal cord signal and caliber are unremarkable within the thoracic spine. The facets are anatomically aligned. There is no significant disc herniation creating a significant spinal canal stenosis. Within what is likely the right ninth posterior medial rib there is a 1 x 0.6 cm T1 hypointense/T2 hyperintense ovoid focus (see series 11 image 15, series 10 image 15 and series 9 image 16). Additionally, there is a similar, but smaller-appearing focus within the posterior medial right eighth rib (best seen on the sagittal views such as series 10 image 16 and series 9 image 16). Partially visualized is mild retrolisthesis of C5 on C6 with degenerative disc and endplate changes with possible encroachment on the ventral thecal sac. LUMBAR SPINE: The conus medullaris terminates at the L1-L2 level. Lumbar spine alignment is unremarkable. The facets are anatomically aligned. No evidence of acute fracture is present. The disc spaces are maintained. At T12-L1, there is no significant spinal canal or neural foraminal stenosis. At L1-L2, there is no significant spinal canal or neural foraminal stenosis. At L2-L3, there is no significant spinal canal or neural foraminal stenosis. At L3-L4, there is a minimal disc bulge without significant spinal canal or neural foraminal stenosis. At L4-L5, there is a mild disc bulge and probable small annular fissure (series 2 image 8), as well as mild facet arthrosis without significant spinal canal or neural foraminal stenosis. At L5-S1, there is a disc bulge without significant spinal canal stenosis. There is a perineural sleeve cyst at the right L5-S1 neural foramina causing mild encroachment on the right neural foramina. No paraspinal masses are present. There are several small Tarlov cysts at the sacral levels. There may be a small left renal cyst partially evaluated. IMPRESSION: No acute fracture or evidence of an acute osseous process within the thoracic or lumbar spine. Spinal cord signal and caliber are unremarkable. Mild degenerative changes are noted within the thoracic and lumbar spine as detailed above. Incompletely evaluated is a disc osteophyte complex at C5-C6 which may be causing effacement of the ventral thecal sac. At what is likely the right posterior medial eighth and ninth ribs, there are small nonspecific T2 hyperintense ovoid foci as described above. MRI thoracic spine with and without intravenous contrast to evaluate for enhancement or contrast-enhanced CT chest may be able to better characterize these lesions. If there are suspicious features to these lesions on the aforementioned recommended tests then nuclear medicine bone scan may be helpful to evaluate for increased metabolic uptake. The findings were discussed with Dr. Clifton at 8:40 PM on October 29, 2017. Interpreting Physician: JESSICA WOODALL M.D. Trans: [email or web address] : cc: CBC WITH DIFF Collected: 10/29/2017 Status: F Source: [facility] 3:54 PM [facility] REPOSITORY TYPE CODE TESTS RESULT OUT OF RANGE REFERENCE UNITS LAB WBC 3.4-10.6 K/mcL WBC Normal 5.2 LAB RBC 3.7-5.0 M/mcL RBC Normal 4.33 LAB HGB 11.6-15.4 g/dL Normal Hemoglobin 12.5 LAB HCT 34.4-44.8 % Normal Hematocrit 38.5 LAB MCV 82.6-98.9 FL MCV Normal 88.9 LAB MCH 27.9-33.9 pg MCH Normal 28.8 LAB MCHC 33.1-35.1 g/dL Low MCHC 32.4 LAB RDW 10.0-14.4 % High RDW 14.6 LAB PLT 162-402 K/mcL Platelet Normal Count 206 LAB MPV 7.0-10.6 FL MPV Normal 8.4 LAB NEUT# 1.2-6.9 K/mcL Normal Neutrophil # 2.2 LAB LYMPH# 1.0-3.7 K/mcL Normal Lymphocyte # 2.4 LAB MONO# 0.1-0.6 K/mcL Monocyte Normal # 0.4 LAB EOS# 0-0.5 K/mcL Normal Eosinophil # 0.2 LAB BASO# 0-0.2 K/mcL Basophil Normal # 0.0 LAB SEGNEU% % Normal Segmented Neut % 42.2 LAB LYMP% % Normal Lymphocyte% 45.3 LAB MO% % Monocyte Normal % 8.1 LAB EO% % Normal Eosinophil % 3.7 LAB BA% % Basophil Normal % 0.7 Performed By: #### CMET, CBCDIF, SEDR, CRPQT #### Unless otherwise noted, all testing performed by [place] [address] CLIA: [id number] Meter And Service Line Inspector: Jose L Bowling M.D. CRP, C-REACTIVE Collected: 10/29/2017 Status: F Source: [facility] PROTEIN 3:54 PM [facility] REPOSITORY TYPE CODE TESTS RESULT OUT OF RANGE REFERENCE UNITS LAB CRPQT 0.0-10.0 mg/L Normal CRP, < 2.9 C-Reactive Protein Performed By: #### CMET, CBCDIF, SEDR, CRPQT #### Unless otherwise noted, all testing performed by [place] [address] CLIA: [id number] Meter And Service Line Inspector: Jose L Bowling M.D. COMPREHENSIVE METABOLIC Collected: 10/29/2017 Status: F Source: [facility] PANEL 3:54 PM [facility] REPOSITORY TYPE CODE TESTS RESULT OUT OF RANGE REFERENCE UNITS LAB GLU 70-99 mg/dL Normal Glucose 84 Result Comment: This test result might be falsely depressed or falsely elevated on samples drawn from patients taking Sulfasalazine and Sulfapyridine. Venipuncture should occur prior to taking either of these drugs. LAB BUN 8-25 mg/dL Normal BUN 12 LAB CREA 0.40-1.10 mg/dL Normal Creatinine 0.81 LAB eGFR ml/min/1.73s Normal q.m eGFR,NonAfrican-A merican >=60 Result Comment: Non- GFR Calc eGFR is an estimated Glomerular Filtration Rate based on the value of the patient's serum creatinine. In outpatients, eGFR should be used as a helpful tool in screening for CKD. In inpatients or patients with acute renal failure, eGFR represents the GFR at the moment of the draw and should be used with caution. LAB eGFRB ml/min/1.73sq.m eGFR, Normal -Panamanian >=60 Result Comment: GFR Calc LAB CALCM 8.4-10.2 mg/dL Calcium Normal 8.6 LAB NA 135-145 mmol/L Sodium Normal 145 LAB K 3.5-5.1 mmol/L Normal Potassium 4.6 LAB CL 98-108 mmol/L High Chloride 112 LAB CO2 21-32 mmol/L CO2 Normal 28 LAB AST 0-45 U/L AST Normal (SGOT) 15 Result Comment: This test result might be falsely depressed or falsely elevated on samples drawn from patients taking Sulfasalazine and Sulfapyridine. Venipuncture should occur prior to taking either of these drugs. LAB ALT 14-65 U/L Low ALT (SGPT) 11 Result Comment: This test result might be falsely depressed or falsely elevated on samples drawn from patients taking Sulfasalazine and Sulfapyridine. Venipuncture should occur prior to taking either of these drugs. LAB ALKP 40-150 U/L Normal Alkaline Phosphatase 111 LAB BILIT 0.3-1.2 mg/dL Normal Bilirubin,Total 0.5 LAB PROT 6.0-8.0 g/dL Low Protein, Total 5.7 LAB ALB 3.2-5.2 g/dL Normal Albumin 3.2 Performed By: #### CMET, CBCDIF, SEDR, CRPQT #### Unless otherwise noted, all testing performed by [place] [address] [place] [address] CLIA: [id number] Meter And Service Line Inspector: Jose L Bowling M.D. SED RATE Collected: 10/29/2017 Status: F Source: [facility] 3:54 PM [facility] REPOSITORY TYPE CODE TESTS RESULT OUT OF RANGE REFERENCE UNITS LAB SEDR 0-20 MM/hr. Normal Sed Rate 9 Performed By: #### CMET, CBCDIF, SEDR, CRPQT #### Unless otherwise noted, all testing performed by [facility] Teresa [address]org[address]. [place], [place] [address] CLIA: [id number] Meter And Service Line Inspector: Jose L Bowling M.D. HIP Observed: 10/29/2017 Status: F Source: [facility] 3:14 PM [facility] REPOSITORY Final Report Accession No: [id number] Performed: Oct 29 2017 3:14PM Examination: LEFT HIP EXAMINATION: HIP LEFT [id number] CLINICAL HISTORY: 51 years Female with history of Pain/No Trauma. COMPARISON: None available. FINDINGS/IMPRESSION: The left hip is intact without fracture or malalignment. Mild degenerative changes of the left hip. Center to the edge and coverage of the acetabulum is bottom normal limits. Interpreting Physician: NEGIN COLEMAN M.D. Trans: [id number] : cc: TSH Collected: 09/06/2017 Status: F Source: [facility] 12:31 PM [facility] REPOSITORY TYPE CODE TESTS RESULT OUT OF RANGE REFERENCE UNITS LAB TSH(LOINC) 0.27-4.20 mcIU/mL TSH 0.29 Performed By: #### TSH #### [address] [address] [place] MAMMOGRAM SCREENING Observed: 09/06/2017 Status: F Source: [facility] BILATERAL W/TRENA 9:30 AM [facility] REPOSITORY ORIGINAL FROM: [address] [address] PROCEDURE FOR: MARYSE PISANO [address] [place] [address] Home: PID#: [id number] Exam#: [id number] : 1965 Age: 51 TO: LUCHO POOLE MD [address], [place] [address] #[id number] DIGITAL SCREENING MAMMOGRAM 3D/2D WITH CAD WITH MEDIOLATERAL OBLIQUE CRANIOCAUDAL: 09/06/2017 Comparison is made to exams dated: 04/01/2015 mammogram and 03/21/2014 mammogram - [facility]. The tissue of both breasts is heterogeneously dense. Current study was also evaluated with a Computer Aided Detection (CAD) system. There are benign densities in both breasts. There also is a benign calcification in the left breast. Additionally, there are post operative findings in the left breast. No significant masses, calcifications, or other findings are seen in either breast. There has been no significant interval change. IMPRESSION: BENIGN There is no mammographic evidence of malignancy. A 1 year screening mammogram is recommended. I have personally reviewed the images of the examination and agree with the findings and interpretation. CRISTINO LEIVA MD cm,yortega/claudia:09/06/2017 11:28:21 Biological Science Technician: SOHAN CASTELLANOS (R)(Tadeo), [facility] letter sent: Normal BI-RADS 1&2 Mammogram BI-RADS: 2 Benign XR CHEST 2 VIEWS Observed: 06/24/2017 Status: F Source: [employer] 9:42 AM [facility] REPOSITORY [facility]IGINAL Clinical history: Cough. Right breast pain. COMPARISON: Chest x-ray on 08/05/2016. PA and the lateral radiographs of the chest were obtained. The heart size is normal. There is no widening of the mediastinum or hilar enlargement. The lungs are well-expanded. Emphysematous architecture is identified, especially in upper lung zones. There is mild scarring at the lung apices. There is no acute infiltrate or pulmonary edema. No pleu ral fluid or pneumothorax is present. No lung nodules are detected. Skeletal structures show no sign of abnormality. IMPRESSION: Emphysema. No acute abnormality. Interpreted By: Jean Pierre Stovall MD Preliminary Report By: Jean Pierre Stovall MD Electronically Signed By: Jean Pierre Stovall MD Dictated Date: 06/25/2017 6:28:39 AM Prelim Date: 06/25/2017 6:28:39 AM Sign Date: 06/25/2017 6:30:23 AM Observed: 06/08/2017 Status: F Source: [facility] [employer] CUR 8:03 AM [facility] REPOSITORY . MICRO - Microbiology PROCEDURE: Urine Culture [*1] SOURCE: Urine BODY SITE: COLLECTED DATE/TIME: 06/08/2017 08:03 EST RECEIVED DATE/TIME: 06/08/2017 20:42 EST START DATE/TIME: 06/08/2017 20:42 EST FREE TEXT SOURCE: FINAL REPORTS Final Report [] Verified Date/Time/Personnel: 06/10/2017 07:23 EST No growth at 48 hours. Sensitivity testing not indicated. PRELIMINARY REPORTS Preliminary Report [] Verified Date/Time/Personnel: 06/09/2017 07:29 EST No growth to date Performing Locations *1: This test was performed at: [facility], [address] [place] [address], [address] [place] [address] Performed By: #### CUR #### [place] [address] [address] ABDOMEN/PELVIS W/O Observed: 06/07/2017 Status: F Source: [employer] CONTRAST 5:00 PM [facility] REPOSITORY ORIGINAL CT ABDOMEN/PELVIS W/O CONTRAST CLINICAL STATEMENT: Abdominal pain. Bilateral flank pain. COMPARISON: 08/19/2004 TECHNIQUE: Axial images were obtained from the lung bases through the pubic symphysis. Coronal and sagittal reformatted images were generated from the axial dataset. This exam was performed according to our departmental dose optimization program, and includes the following measures where applicable: automated exposure control, adjustment of the mAs and/or kVp according to patient size and/or exam, and an iterative reconstruction algorithm. FINDINGS: The kidneys are symmetric in size and are without calculi, hydronephrosis, or perinephric stranding. The ureters are normal. No bladder calculi are visible. The visualized liver and spleen are unremarkable for noncontrast examination. The noncontrasted pancreas and adrenal glands are normal. Gallbladder surgically absent. There is some calcified atherosclerotic disease in the aorta The small and large bowel are normal in course and caliber. Appendix is surgically absent. Uterus is surgically absent. There is no free fluid or free air. No adenopathy is identified. There are no suspicious osseous lesions. IMPRESSION: No urinary tract calculi. No hydronephrosis. Interpreted By: Vinicio Montelongo MD Preliminary Report By: Vinicio Montelongo MD Electronically Signed By: Vinicio Montelongo MD Dictated Date: 06/07/2017 5:03:54 PM Prelim Date: 06/07/2017 5:03:54 PM Sign Date: 06/07/2017 5:10:18 PM CBC Collected: 06/07/2017 Status: F Source: [facility] 4:38 PM [facility] REPOSITORY TYPE CODE TESTS RESULT OUT OF REFERENCE UNITS RANGE LAB WBC(LOINC) 4.60-10.80 10 3/mcL WBC 10.40 LAB RBCCT(LOINC 4.20-5.40 10 6/mcL ) RBC 4.69 LAB HGB(LOINC) 12.0-16.0 G/dL Hgb 13.4 LAB HCT(LOINC) 37.0-47.0 % Hct 41.1 LAB MCV(LOINC) 80.0-94.0 fL MCV 87.6 LAB MCH(LOINC) 27.0-31.2 pg MCH 28.6 LAB MCHC(LOINC) 33.0-37.0 G/dL Low MCHC 32.7 LAB RDW(LOINC) 11.5-14.5 % RDW 14.1 LAB PLT(LOINC) 130-400 10 3/mcL Platelet 256 LAB MPV(LOINC) 7.4-10.4 fL MPV 7.6 Performed By: #### CBC, ADIFF, ANEU, BMP, GFR, LIP #### [place] [address] .AUTO DIFF Collected: 06/07/2017 Status: F Source: [facility] 4:38 PM [facility] REPOSITORY TYPE CODE TESTS RESULT OUT OF REFERENCE UNITS RANGE LAB ALYCE(LOINC) 37.0-80.0 % Neutrophil % 59.1 LAB LYM(LOINC) 10.0-50.0 % Lymphocyte % 32.8 LAB MON(LOINC) 1.7-13.0 % Monocyte % 5.4 LAB EO(LOINC) 0.0-7.0 % Eosinophil % 2.0 LAB BAS(LOINC) 0.0-2.5 % Basophil % 0.7 LAB ABLYM(LOIN 0.77-3.85 10 3/mcL C) Lymphocyte, 3.40 Absolute LAB NELI(LOINC 0.15-1.00 10 3/mcL ) Monocyte, 0.60 Absolute LAB AEOS(LOINC 0.00-0.40 10 3/mcL ) Eosinophil, 0.20 Absolute LAB ABAS(LOINC 0.00-0.19 10 3/mcL ) Basophil, 0.10 Absolute Performed By: #### CBC, ADIFF, ANEU, BMP, GFR, LIP #### [address] [address] .NEUABS Collected: 06/07/2017 Status: F Source: [facility] 4:38 [facility] REPOSITORY TYPE CODE TESTS RESULT OUT OF REFERENCE UNITS RANGE LAB ANEU(LOINC) 2.85-6.16 10 3/mcL High Neutrophil, 6.20 Absolute Performed By: #### CBC, ADIFF, ANEU, BMP, GFR, LIP #### [address] [address] BMP Collected: 06/07/2017 Status: F Source: [facility] 4:38 [facility] REPOSITORY TYPE CODE TESTS RESULT OUT OF REFERENCE UNITS RANGE LAB 1547-9 70-105 mg/dL GLUCOSE 91 LAB NA(LOINC) 136-146 mEq/L Sodium Level 139 LAB K(LOINC) 3.5-5.1 mEq/L Potassium Level 4.5 LAB CL(LOINC) 98-107 mEq/L Chloride 106 LAB CO2(LOINC) 22-29 mEq/L CO2 26 LAB EBAL(LOINC mEq/L ) Electrolyte Balance 7.0 LAB BUN(LOINC) 7.0-18.0 mg/dL BUN 10.7 LAB CRE(LOINC) 0.6-1.2 mg/dL Creatinine Lvl (s) 0.8 LAB BC(LOINC) 7-27 ratio BUN/Creatinine 13 Ratio LAB CA(LOINC) 8.4-10.2 mg/dL Calcium Lvl 9.2 Performed By: #### CBC, ADIFF, ANEU, BMP, GFR, LIP #### [address] [address] .GFR Collected: 06/07/2017 Status: F Source: [facility] 4:38 PM [facility] REPOSITORY TYPE CODE TESTS RESULT OUT OF REFERENCE UNITS RANGE LAB GFRAA(LOINC ml/min/1.73 ) sqm GFR 97 Panamanian Result Comment: GFR Population mean for , Non- Americans Ages 20-29 = 116 mL/min/1.73 sq.m. Ages 30-39 = 107 mL/min/1.73 sq.m. Ages 40-49 = 99 mL/min/1.73 sq.m. Ages 50-59 = 93 mL/min/1.73 sq.m. Ages 60-69 = 85 mL/min/1.73 sq.m. Ages 70+ = 75 mL/min/1.73 sq.m. Chronic Kidney Disease: Less than 60 mL/min/1.73 square meters End Stage Renal Disease: Less than 15 mL/min/1.73 square meters LAB GFRNO(LOINC) ml/min/1.73sqm GFR Non- >60 Result Comment: GFR Population mean for , Non- Americans Ages 20-29 = 116 mL/min/1.73 sq.m. Ages 30-39 = 107 mL/min/1.73 sq.m. Ages 40-49 = 99 mL/min/1.73 sq.m. Ages 50-59 = 93 mL/min/1.73 sq.m. Ages 60-69 = 85 mL/min/1.73 sq.m. Ages 70+ = 75 mL/min/1.73 sq.m. Chronic Kidney Disease: Less than 60 mL/min/1.73 square meters End Stage Renal Disease: Less than 15 mL/min/1.73 square meters Performed By: #### CBC, ADIFF, ANEU, BMP, GFR, LIP #### [place] [address] [address] LIP Collected: 06/07/2017 Status: F Source: [facility] 4:38 PM [facility] REPOSITORY TYPE CODE TESTS RESULT OUT OF REFERENCE UNITS RANGE LAB LIP(LOINC) 8-78 IU/L Lipase Level 35 Performed By: #### CBC, ADIFF, ANEU, BMP, GFR, LIP #### [place] [address] [place], [place] [address] ALLERGIES ALLERGIES DATE TYPE / CODE NAME / CODE REACTION SEVERITY SOURCE DRUG GABAPENTIN [facility] 8 INGREDI/276482756 Three (SNOMED CT) Repository DRUG AMITRIPTYLINE Nausea [place] [address] INGREDI/036397723 Three (SNOMED CT) Repository DRUG ASPIRIN [place] [address] INGREDI/685163867 Three (SNOMED CT) Repository DRUG BUPROPION Other [place] [address] INGREDI/366877011 Three (SNOMED CT) Repository DRUG IBUPROFEN [place] [address] INGREDI/520820340 Three (SNOMED CT) Repository Drug poison oak Swelling Unknown [place] 5 Allergy/027973640 extract/[id number] Community (SNOMED CT) (RXNORM) Hospital Repository Drug poison librado Swelling Unknown [place] 5 Allergy/706099427 extract/S458200596 Community (SNOMED CT) (RXNORM) Hospital Repository Drug venom-honey Swelling Unknown [place] 5 Allergy/307282609 bee/T512555725(RXN Community (SNOMED CT) OR) Hospital Repository Miscellaneous TAPE Other Unknown [place] 5 Allergy/691198327 [facility] (SNOMED CT) Hospital Repository Drug ibuprofen/I9332928 Unknown Unknown [place] 5 Allergy/262272667 77(RXNORM) [facility] (SNOMED CT) Hospital Repository Drug etodolac/[id number] Unknown Unknown [place] 5 Allergy/645524303 7(RXNORM) [facility] (SNOMED CT) Hospital Repository Drug amitriptyline Nausea Unknown [place] 4 Allergy/798840362 HCl/A669749412(RXN Community (SNOMED CT) OR) Hospital Repository Drug bupropion Other Unknown [place] 4 Allergy/754696247 HCl/D924153008(RXN Community (SNOMED CT) OR) Hospital Repository Drug Penicillins/X66951 Hives Unknown [place] 4 Allergy/613866479 0476(RXNORM) [facility] (SNOMED CT) Hospital Repository Drug aspirin/Q126973751 Nausea Unknown [place] 4 Allergy/349118781 (RXNORM) [facility] (SNOMED CT) Hospital Repository Drug rofecoxib/H4226484 Other Unknown [place] 4 Allergy/653352471 87(RXNORM) Community (SNOMED CT) Hospital Repository DRUG/017143269(SN ADHESIVE Rash Low [facility] [address]) TAPE-SILICONES Three Repository DRUG/476213825(SN VIT E-NONOXYNOL Rash Low [facility] [address]) 9-ALOE VERA Three Repository DRUG BACITRACIN Rash Low [facility] 2 INGREDI/436786450 Three (SNOMED CT) Repository DRUG/692437845(SN PYRETHRINS-PIPERON Rash High [place] [address]) YL BUTOXIDE Three Repository DRUG THEOBROMA OIL [facility] 1 INGREDI/769755817 Three (SNOMED CT) Repository DRUG SUCRALFATE Med [facility] 1 INGREDI/118790593 Three (SNOMED CT) Repository DRUG CHLORHEXIDINE Rash Low [facility] 0 INGREDI/493579095 Three (SNOMED CT) Repository DRUG BEE VENOM PROTEIN Swelling High [facility] 0 INGREDI/158104568 (HONEY BEE) Three (SNOMED CT) Repository DRUG VARENICLINE Rash High [facility] 9 INGREDI/779473485 Three (SNOMED CT) Repository DRUG ROFECOXIB Anaphylaxis High [facility] 5 INGREDI/129783621 Three (SNOMED CT) Repository DRUG CIPROFLOXACIN [facility] 5 INGREDI/938757186 Three (SNOMED CT) Repository DRUG CLARITHROMYCIN [place] [address] INGREDI/659285775 Three (SNOMED CT) Repository DRUG/490758309(SN ERYTHROMYCIN [place] [address]) Three Repository DRUG ETODOLAC [place] [address] INGREDI/678233257 Three (SNOMED CT) Repository DRUG FLUOXETINE HCL [place] [address] INGREDI/626543371 Three (SNOMED CT) Repository DRUG/383986204(SN IPRATROPIUM-ALBUTE [place] [address]) ROL Three Repository DRUG NAPROXEN [place] [address] INGREDI/885208796 Three (SNOMED CT) Repository Drug PENICILLINS Hives [place] [address] Class/392347874(S Three NOMED CT) Repository DRUG PREDNISONE [place] [address] INGREDI/835805677 Three (SNOMED CT) Repository DRUG PROPOXYPHENE HCL [place] [address] INGREDI/138504959 Three (SNOMED CT) Repository DRUG SALICYLATES [place] [address] INGREDI/945189838 Three (SNOMED CT) Repository DRUG NEOMYCIN Rash Low [place] [address] INGREDI/952864315 Three (SNOMED CT) Repository DRUG BUPROPION HCL [facility] INGREDI/500752207 Three (SNOMED CT) Repository ENCOUNTERS ENCOUNTERS ADMIT/DISCHARGE ACCOUNT NUMBER ADMITTING ENCOUNTER LOCATION SOURCE CLASS 04/26/2018 [id number] [facility] ding:OT Repository 04/23/2018/04/23/19 [id number] Ambulatory BBuilding:RA Baron [address] [place] [address] Repository 04/18/2018 [id number] [facility] ding:HPRAD Repository 04/18/2018 [id number] Ambulatory [facility] ding:HPRAD Repository 04/18/2018/04/18/19 [id number] Ambulatory BMSBuilding: [address] Repository 03/29/2018/03/29/20 [id number] Ambulatory BBuilding:TC GrecoKarena[address] Repository 02/21/2018/02/22/20 [id number] VAIBHAV Ambulatory Building[facility] [address] [facility] 02/18/2018/02/20/[id number] Armani Emergency [place] [address] Leisa Booth lding:A1E [facility] [place] DeptRoo: [facility] A1E [id number]: Repository A1E A1ED12 12/14/[id number] Susana Ambulatory [facility] Repository 12/12/2017/12/13/[id number] Rafael Emergency [place] [address] Bill H lding:A1E [facility] [place] DeptRoom: [facility] A1E [id number]: Repository A1E A1ED38 12/05/2017 [id number] Ambulatory Building:[facility] NEUROSURGGL Three SSNER Repository 12/01/2017 [id number] Ambulatory Building:[facility] Three Repository 11/17/2017/11/18/19 [id number] VAIBHAV, Ambulatory Building:[place] [address] [facility] AUDREY Repository 11/14/2017 [id number] Vaibhav CHEMICAL TEST ENGINEER, Ambulatory [facility] Repository 10/29/2017/10/30/[id number] Elodia Emergency [place] [address] Shamar Bonilla lding:E [facility] [place] Depoo: [place] [id number]: Repository A1E A1ED38 09/09/2017/09/10/[id number] Oscar Emergency [place] [address] Araceli lding:E [facility] [place] DeptRoom: [place] [id number]: Repository A1E A1ED16 09/06/2017/09/07/19 [id number] Ambulatory KARENA Karena [address] [place] [address] ding:OLAB [facility] Repository 09/06/2017/09/07/19 [id number] Ambulatory KARENA Karena [address] [place] [address] ding:RAD [facility] Repository 06/24/2017/06/25/19 [id number] Ambulatory KARENA Karena [address] [place] [address] ding:RAD [facility] Repository 06/08/2017/06/13/19 [id number] Ambulatory KARENA Karena [address] [place] [address] ding:DROP [facility] Repository 06/07/2017/06/08/19 [id number] Emergency BBuilding:ER Karena [facility] Emergency Department Repository PAYERS PAYERS ENCOUNTER GUARANTOR PAYER SUBSCRIBER SOURCE 04/26/2018 MARYSE A Primary MARYSE A [place] [id number] [address] Insurance:[facility]: [id number] [address]Qim: [id number] Repository Date:2018-04-03P O (HY) [address]ATTN: [place] [address]HY: 04/26/2018 Secondary NOT GIVENUNK [place] Insurance:SELF PAY [facility] Number: Effective Repository Date:2018-04-18 04/23/2018 MARYSE A Primary MARYSE A [facility] SHORTDOB: Insurance:CARESOURCE SHORTDOB: [facility] [id number] MEDICAIDPolicy [id number] Repository [facility] Number: [place], [place] [id number] [address]~MORIS Date:2018-04-23Tel: ([phone]) [email or web address] [id number] [phone] [email or web address] Name:XPO Box (HP)Tel: (523) AITel: [phone], [place] [address] (OO) [phone]: [phone]) (HP) [phone] (WP) 04/18/2018 MARYSE A Primary MARYSE A [place] [id number] [facility] Insurance:CARESOURCEP SHORTDOB: [facility] Number: [id number] Healthcare, [id number] [place]ository [place] [id number]: Date:2018-04-18[address]ATTN: CLAIMS (HP) [place] [address]OI: 04/18/2018 Secondary NOT GIVENUNK [place] Insurance:SELF PAY [facility] Number: Effective Repository Date:2018-04-18 04/18/2018 MARYSE A Primary MARYSE A [place] [id number] [facility] Insurance:CARESOURCEP SHORTDOB: [facility] Number: [id number] Healthcare, [id number] Repository [place] [address]Wio: Date:2018-04-18[address]ATTN: CLAIMS (HP) [place] [address]AP: 04/18/2018 Secondary NOT GIVENUNK [place] Insurance:SELF PAY [facility] Number: Effective Repository Date:2018-04-18 04/18/2018 MARYSE A Primary MARYSE A [place] [id number] [facility] Insurance:CARESOURCEP SHORTDOB: [facility] Number: [id number] [facility] [id number] [place]ository [place] [address]Gtr: Date:2018-03-30 [address]ATTN: CLAIMS (HP) [place] [address]LF: 04/18/2018 Secondary NOT GIVENUNK [place] Insurance:SELF PAY [facility] Number: Effective Repository Date:2018-04-18 03/29/2018 MARYSE A Primary MARYSE A [facility] SHORTDOB: Insurance:CARESOURCE SHORTDOB: Foundation MEDICAIDPolicy [id number] Repository [facility] Number: [place], [place] [id number] [place] [address]~MORIS Date:2018-03-29Tel: ([phone]) [email or web address]@[email or web address] [id number] [phone] MAINE@ Name:X[address] Box (HP)Tel: (661) AITel: [phone] [address], [place] [address] (OQ) [phone]: [phone]) (HP) [phone] (WP) 02/21/2018 MARYSE A Primary MARYSE A [facility] SHORTDOB: Insurance:CARESOURCE SHORTDOB: Three Repository MANAGED [id number] [place] MEDICAIDPolicy [place], [place] Number: [place], [place] [address]Ucq: (716) [id number] [phone] (HP) Date:6507-04-79[address], [place] [address]RQ: 02/18/2018 Primary MARYSE A [facility] Insurance:CareSourceP SHORTDOB: [place] Number: [id number] [facility] [id number] LIZET Repository Date:[place], [place] Name:[address] [address]Jpm: [phone] [place], [place] [phone] (HP) [phone]: 12/14/2017 Primary MARYSE A [facility] Insurance:CareSourceP SHORTDOB: Sandie Number: [id number] [facility] [id number] LIZET Repository Date:[place], [place] Name:[facility] [address] [address]Qvr: [phone] [place] [address] [phone] (HP) [phone]: 12/12/2017 Primary MARYSE A [facility] Insurance:CareSourceP SHORTDOB: Sandie Number: [id number] [facility] [id number] LIZET Repository Date:[place] Name:[facility] [address] [address]Rkq: [address] [place] [address] [phone] (HP) [phone]: 12/05/2017 MARYSE A Primary MARYSE A [facility] SHORTDOB: Insurance:CARESOURCE SHORTDOB: Three Repository MANAGED [id number] LIZET MEDICAIDPoly LIZET [place], [place] Number: [place], [place] [address]Gak: ([phone] [id number] [phone] (HP) Date:[id number] [address] [place] [phone]: 12/01/2017 MARYSE A Primary MARYSE A [facility] SHORTDOB: Insurance:MEDICAIDPol SHORTDOB: Three Repository icy Number: [id number] LIZET [id number] [place], [place] Date: [address] [place], [place] [address]Pno: [phone], [place] [address]Mxd: (HP) [phone]: (HP) [phone] 12/01/2017 Secondary MARYSE A [facility] Insurance:MEDICAIDPol SHORTDOB: Three Repository icy Number: [id number] LIZET Date: [place], [place] [address], [place] [address]Qdj: [phone]: (HP) [phone] 11/17/2017 MARYSE A Primary MARYSE A [facility] SHORTDOB: Insurance:MEDICAIDPol SHORTDOB: Three Repository icy Number: [id number] LIZET [id number] [place]ET [place], [place] Date: [place], [place] [address]Ely: [phone], [place] [address]Ywv: (HP) [phone]: (HP) [phone] 11/17/2017 Secondary MARYSE A [facility] Insurance:MEDICAIDPol SHORTDOB: Three Repository icy Number: [id number] LIZET Date: [place] [address], [place] [address]Rhv: [phone]: (HP) [phone] 11/14/2017 [facility]SourceP SHORTDOB: Sandie Number: [id number] [facility] [id number] LIZET Repository Date:[place] Name:[facility] Nerissa [address]Tno: [phone], [place] [phone] (HP) [phone]: 10/29/2017 Primary [facility]SourceP SHORTDOB: Sandie Number: [id number] [facility] [id number] LIZET Repository Date:[place], [place] Name:[address] [address]Yfh: [phone], [place] [phone] (HP) [phone]: 09/09/2017 Primary MARYSE A [facility] Insurance:CareSourc SHORTDOB: Sandie Number: [id number] [facility] [id number] LIZET Repository Date:[place], [place] Name:[address] [address]Hzo: [phone], [place] [phone] (HP) [phone]: 09/06/2017 MARYSE A Primary MARYSE A [facility] SHORTDOB: Insurance:CARESOURCE SHORTDOB: [facility] MEDICAIDPolicy [id number] Repository LIZET Number: [place] [id number] [address]~MELISSASHO Date:2017-09-06Tel: [phone] [email or web address] [id number] [phone] l: [phone]) Name:[address] (HP) [address], [place] 000-[address] (WP) (HP)Tel: [phone]: (WP) [phone] 09/06/2017 MARYSE A Primary MARYSE A [facility] SHORTDOB: Insurance:CARESOURCE SHORTDOB: [facility] MEDICAIDPolicy [id number] Repository LIZET Number: [place] [id number] [address]~MELISSASHO Date:2017-08-29Tel: [phone] [email or web address] HEALTH CENTERBioRegenerative SciencesMoberly [facility] [id number] [phone] l: [phone]) Name:[address] (HP) [address], [place] 000-0000 (WP) (HP)Tel: [phone]: ([phone] 06/24/2017 MARYSE A Primary MARYSE A [facility] SHORTDOB: Insurance:CARESOURCE SHORTDOB: [facility] MEDICAIDPolicy [id number] Repository LIZET Number: [place] [id number] [place] [address]~MELISSASHO Date:2017-06-24Tel: [phone] [email or web address]@[email or web address] [id number] [phone] l: [phone]) Name:X[address] Box (HP) [address] [place] [address] 000-[address] (WP) (HP)Tel: [phone]: (WP) [phone] 06/08/2017 MARYSE A Primary MARYSE A [facility]ORTDOB: [facility] SHORT[facility]: [facility] MEDICAIDPolicy [id number] Repository LIZET Number: [place] [id number] [place] [address]~MELISSASHO Date:2017-06-08Tel: [phone] [email or web address] [id number] [phone] l: [phone]) Name:X[address] Box (HP) [address] [place] [address] 000-[address] (WP) (HP)Tel: [phone]: (WP) [phone] 06/07/2017 MARYSE A Primary MARYSE A [facility] SHORTDOB: Insurance:CARESOURCE SHORTDOB: [facility] MEDICAIDPolicy [id number] Repository LIZET Number: [place], [place] [id number] [place] [address]~MELISSASHO Date:2017-06-07Tel: [phone] [email or web address] [id number] [phone] l: [phone]) Name:[address] () [address], [place] [address] (WP) ()Tel: [phone]: [phone]
== END ==
PROVIDERS: Family Provider Internal Medicine; PCP Internal Medicine; Referring Provider Physician Assistant; Visit Provider Physician Assistant
DX: M25.531 Pain in right wrist (principal); M25.532 Pain in left wrist
CPT/HCPCS: 73110

== ENCOUNTER → 2018-04-18 15:14 | Outpatient (CLI) | payer MEDICAID, SELFPAY ==
[2018-04-18 13:38] VITALS: BMI 20.3
== END ==
PROVIDERS: Family Provider Internal Medicine; PCP Internal Medicine; Referring Provider Physician Assistant; Visit Provider Physician Assistant
DX: M25.531 Pain in right wrist (principal); M25.532 Pain in left wrist

== ENCOUNTER 2018-05-17 10:00 | Outpatient (RCR) | payer MEDICAID, SELFPAY ==
[2018-04-18 13:38] VITALS: BMI 20.3
--- NOTE | 2018-04-26 11:50 | HP.OTEVAL_ITS ---
Patient's Visit Information MARYSE STEWART is a 52 year old F, referred to Occupational Therapy by YASMANY Simons, with a diagnosis of Bilateral CTS and R lateral epicondylitis. Date of Evaluation: 04/26/18 Occupational Therapist: Jeane Ambrose - Subjective Subjective: Arrived and noted that had nerve conduction in 2018 in [place] at [facility]. She noted that she had positive results for CTS in B wrists. She noted that doctor came in and noted that she had an area of concern in neck and needed to see neurologist. She is concerned about this. She has not since followed up with neurologist. She noted she recently moved from [place] to [place]. - Pain Bilateral Hand 5 Pain Intensity Range: 5 Right Elbow 8 Pain Intensity Range: 8 - Objective Concerns: Pt. noted previous nerve conduction noted B CTS but also cervical involvement in which it was recommended she see a neurologist. Will treat CTS and lateral epicondylitis on R UE but if no relief is noted within 2-4 weeks then treatment will be terminated and she will be sent back to doctor. - ROM Elbow: R 0-126, L 0-131 Forearm: WFL Wrist: Flexion R 0-60, L 0-72; extension R 0-72, L 0-47 CMC: WFL MP: WFL PIP: WFL DIP: WFL ROM Comments: Pain with all movements. - Strength Sr. Operations Manager: flexed position R 58, L 75 ; Extended R 40, L 54 Lateral Pinch: R 10, L 14 Tripod Pinch: R 12, L 14 Tip-to-Tip Pinch: R 8, L 7 Strength Comments: decrease in pain in RUE. - Edema Other: none noted at this time. 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 Goal:: Maryse to complete pain management techniques 4/5 trials 80% of the time to promote increased ability to complete functional tasks by d/c. Goal:: Maryse to demonstrate understanding of proper wrist and UE mechanics to decrease pain and promote function performance 4/5 trials 80% of the time by d/c. Goal:: Maryse to be (i) to complete HEP to promote increased strength and endurance of B UE and manage symptoms of pain 4/5 trials 80% of the time by d/c. Goal:: Melssia to be (i) to understand and demonstrate compensations to complete fx daily tasks to promote decrease in pain and movements that cause increase in symptoms 4/5 trials 80% of the time by d/c. - Rehabilitation General Assessment: Arrived for OT evaluation today, 04/26/18. She has been experiencing symptoms of CTS and lateral epicondylitis for last three months. She noted nerve conduction completed and confirmed CTS in [place]. She noted further cervical involvement. Skilled OT needed to complete treatment to R elbow and B wrists to promote ROM, strength, decrease in pain symptoms, and compensations to manage pain with ADL/IADLS. Rehabilitation Potential: Good - Anticipated Interventions Anticipated Interventions: A/AAROM/PROM, Strengthening, Desensitization, Modalities, Orthoses, Joint Protection/Energy Conservation, Ergonomic Education, Fine Motor Coord/Anibal, ADL Training, Caregiver Training, Home Program - Visit Plan Frequency: 2x /Week Duration: 2-4 Weeks General Plan: OT to work on nerve glide (from wrist down and no cervical involvement until further clarification gained), ROM, strength, and general compensations to promote completing ADL/IADLs in pain free or reduced range. TEXT: Thank you for the opportunity to evaluate your patient. For Medicare and Medicare HMO plans, please review the plan of care and approve it. It will need to be FAXED BACK to us at [phone] for Medicare purposes. Please let me know if there are questions or concerns regarding this plan of care. Physician Signature: Date:
--- NOTE | 2018-10-15 17:01 | HP.OTNRP.P ---
HP - Discharge Summary - Patient Information PETRA STEWART was seen in my office for initial evaluation on . The following Plan of Care was established for this patient: This patient was last seen in our office . Pertinent comments regarding their Occupational therapy will appear below: At this point I will be discontinuing this patient from occupational therapy. I would be happy to see this patient again in the future if found appropriate by the physician. Thank you! Jeane Ambrose, OTR/L
--- NOTE | 2018-10-15 17:01 | HP.OT.NRP ---
HP - Discharge Summary - Patient Information PETRA STEWART was seen in my office for initial evaluation on 04/26/18. The following Plan of Care was established for this patient: Initial Frequency: 2x /Week Initial Duration: 2-4 Weeks Plan: measurements monday; will determine progress. She si to monitor KT tape and determine if relief is felt. - Anticipated Interventions Anticipated Interventions: A/AAROM/PROM, Strengthening, Desensitization, Modalities, Orthoses, Joint Protection/Energy Conservation, Ergonomic Education, Fine Motor Coord/Anibal, ADL Training, Caregiver Training, Home Program This patient was last seen in our office 05/17/18. Pertinent comments regarding their Occupational therapy will appear below: Seen for 5 visits only. She was going for follow up with Dr. Wang and did not return for further follow up. She will be d/c'd at this time. At this point I will be discontinuing this patient from occupational therapy. I would be happy to see this patient again in the future if found appropriate by the physician. Thank you! Jeane Ambrose, OTR/L
== END 2018-05-17 19:00 | disposition home or self-care (01) ==
LOC: OT 10:00
PROVIDERS: Family Provider Nurse Practitioner Family; PCP Nurse Practitioner Family; Referring Provider Physician Assistant; Visit Provider Physician Assistant
DX: G56.03 Carpal tunnel syndrome, bilateral upper limbs (principal); M77.11 Lateral epicondylitis, right elbow
CPT/HCPCS: 97035; 97110; 97140; 97166; 97530; 97760

== ENCOUNTER 2018-07-18 06:58 | Day surgery (SDC) | payer MEDICAID, SELFPAY ==
[2018-07-10 13:31] VITALS: BMI 20.3
[2018-07-18 07:00] VITALS: BP 125/67; PULSE 80; RESP 16; TEMP 36.9; O2SAT 99; BMI 20.5
[2018-07-18] MEDS: Cefazolin 2 GM in 0.9% Normal Saline 100 ML IV (07:57)
--- NOTE | 2018-07-18 08:10 | PCM.DC.ORTHO ---
Discharge Diet: No Restrictions - leave dressing intact, call with concerns, follow up in 2 weeks for suture removal Discharge Activity: May Not Drive May shower in (days): 1 Ice area for (Minutes): 20 - Every hour while awake. Weight Bearing Status: Weight bearing as tolerated Keep extremity elevated above heart level: Operative Extremity Call your doctor if your incision/area has: Continuous Slow Oozing, Sudden Increased Bleeding, Increased Pain/ Swelling, Increased Redness, Foul Smelling Discharge Call your doctor if you observe: Fever of 101 or Higher, Coldness, Increased Pain, Numbness or Tingling, Change in Color, Calf discomfort Allergies/Adverse Reactions: Allergies amitriptyline HCl [From Elavil] Allergy (Verified 06/24/13 21:26) Nausea aspirin [ASA] Allergy (Verified 06/24/13 21:26) Nausea bupropion HCl [From Wellbutrin] Allergy (Verified 06/24/13 21:25) Other etodolac [From Lodine] Allergy (Verified 08/08/14 17:26) Unknown ibuprofen Allergy (Verified 08/08/14 17:26) Unknown Penicillins [PCN] Allergy (Verified 06/24/13 21:25) Hives poison librado extract Allergy (Verified 11/09/14 18:28) Swelling poison oak extract Allergy (Verified 11/09/14 18:28) Swelling rofecoxib [From Vioxx] Allergy (Verified 06/24/13 21:27) Other venom-honey bee [bee venom (honey bee)] Allergy (Verified 11/09/14 18:28) Swelling TAPE Adverse Reaction (Uncoded 11/09/14 18:28) Other Medications to take at Discharge Clonazepam [Klonopin] 0.5 mg PO TID PRN PRN 01/08/15 Duloxetine HCl 30 mg PO BID 01/08/15 Levothyroxine [Synthroid] 50 mcg PO DAILY 01/08/15 Celecoxib [Celebrex] 200 mg PO DAILY 07/13/18 Fluticasone/Vilanterol [Breo Ellipta Inhaler] 1 puff IH DAILY 07/13/18 Omeprazole 40 mg PO DAILY 07/13/18 Tiotropium [place] [Spiriva 18 MCG] 2 puff INHALATION QHS 07/13/18 Hydrocodone Bitart/Apap 5-325 [[place] 5MG-325MG] 1 - 2 tablet PO Q6H PRN PRN 5 Days #20 tablet 07/18/18 The following prescriptions were given: Hydrocodone Bitart/Apap 5-325 [[place] 5MG-325MG] 1 - 2 tablet PO Q6H PRN PRN 5 Days #20 tablet PRN Reason: Pain Primary Care Physician: Christa Iverson NP-C [Primary Care Provider] - Test Results: Test results from this visit will be discussed in further detail at your follow-up appointment, if applicable. Please Follow Up With: María Lynn, - [phone]
--- NOTE | 2018-07-18 08:11 | OP.PCM_ITS ---
Report of Operation Date of Procedure: 07/18/18 Pre-Operative Diagnosis: right carpal tunnel syndrome, left carpal tunnel syndrome Post-Operative Diagnosis: same Type of Anesthesia:: Carlos Anderson Anesthesiologist: Kendall Diggs Estimated Blood Loss (mL): minimal Fluids Replaced: 300cc lr Description of Procedure: Preoperative note Patient is a 52 year old patient with nerve conduction study confirming carpal tunnel syndrome. Patient failed conservative treatment for her carpal tunnel elected proceed with right carpal tunnel release. Risks benefits and alternatives surgery discussed with patient. Risks including but not limited to blood loss, blood clot, infection, neurovascular injury, failure procedure, loss of life and loss of limb. Patient is aware like proceed with right carpal tunnel release. Operative note Patient seen and examined preoperative holding area. right hand was marked. History and physical and consent reviewed. Patient was brought to the operating room placed supine on the operating table. Sign in, anesthesia, antibiotics were administered. right upper extremity was prepped and draped after [place] block was initiated. All bony prominences well-padded SCDs placed on bilateral lower extremities. We marked out our incisions for our carpal tunnel release at the intersection of Jolene's line in the fourth ray flexed. We extended about a centimeter and a half. Timeout was performed. We then checked ensure that the Carlos block was working with pickups which it was. We then used a 15 blade to make a skin incision. We then dissected down tenotomy syllable of the transverse carpal ligament. We then used a new 15 blade cut through the transverse carpal ligament down to the level of the median nerve. We then further released the median nerve the combination of the 15 blade and tenotomies. The nerve was grayish in color and adherent to the transverse carpal ligament volarly. We released the transverse carpal ligament distally to the fat pad and then proximally under standard technique. We then palpated to ensure that we released all of the transverse carpal ligament which we did. We irrigated the incision with copious amounts of sterile saline. All bleeders were coagulated. The incision was closed with interrupted 4-0 nylon stitches. We then injected the left wrist under standard sterile technique the left carpal tunnel with 1 cc bupivacaine and 1/2 cc of Kenalog 40 mg. Tourniquet was deflated for total working time of 10 minutes. Patient tolerated procedure well there were no complications. Patient transferred to recovery room in stable condition. Postoperative note Hospital pharmacy has prescription Leave dressing clean dry and intact Follow-up in 2 weeks Call with concerns This note was generated with [employer] dictation software. It may contain incorrect words, spelling, and punctuation that were not noted in checking the note before signing
[2018-07-18] MEDS: Mupirocin Ointment 22gm Tube 1 APPLIC (08:31)
[2018-07-18] MEDS: Triamcinolone Acetonide 40 MG/ML Vial (08:31)
[2018-07-18] MEDS: Ropivacaine 0.5% 30 ML Vial (08:32)
[2018-07-18 08:38] VITALS: BP 125/67; BP 93/57; PULSE 79; RESP 17; TEMP 36.2; O2SAT 99
[2018-07-18 08:43] VITALS: BP 125/67; BP 94/60; PULSE 79; RESP 16; O2SAT 98
[2018-07-18 08:48] VITALS: BP 118/85; BP 125/67; PULSE 90; RESP 16; O2SAT 98
[2018-07-18 08:54] VITALS: BP 125/67; BP 126/79; PULSE 80; RESP 16; TEMP 36.5; O2SAT 98
[2018-07-18 09:42] VITALS: BP 125/67
== END 2018-07-18 09:44 | disposition home or self-care (01) ==
LOC: SDC 06:58 → AC 06:59
PROVIDERS: Family Provider Nurse Practitioner Family; PCP Nurse Practitioner Family; Referring Provider Orthopaedic Surgery; Visit Provider Orthopaedic Surgery
PROC: (CPT 64721; principal; 2018-07-18 08:10)
DX: G56.03 Carpal tunnel syndrome, bilateral upper limbs (principal); K58.9 Irritable bowel syndrome, unspecified; K21.9 Gastro-esophageal reflux disease without esophagitis; F17.200 Nicotine dependence, unspecified, uncomplicated; F32.9 Major depressive disorder, single episode, unspecified; F43.10 Post-traumatic stress disorder, unspecified; F41.0 Panic disorder [episodic paroxysmal anxiety]; Z85.850 Personal history of malignant neoplasm of thyroid; Z79.899 Other long term (current) drug therapy; J44.9 Chronic obstructive pulmonary disease, unspecified; M19.90 Unspecified osteoarthritis, unspecified site
CPT/HCPCS: 01810; 20526; 64721; J7120

== ENCOUNTER 2018-10-31 14:50 | Day surgery (SDC) | payer MEDICAID, SELFPAY ==
[2018-10-10 09:41] VITALS: BMI 20.5
--- NOTE | 2018-10-10 10:20 | HP_ITS ---
Intake Vital Signs 10/10/18 Body Mass Index (BMI) 20.5 Intake Visit Reasons: Bilat Wrists Chief Complaint: LEFT HIP PAIN Allergies amitriptyline HCl [From Elavil] Allergy (Verified 06/24/13 21:26) Nausea aspirin [ASA] Allergy (Verified 06/24/13 21:26) Nausea bupropion HCl [From Wellbutrin] Allergy (Verified 06/24/13 21:25) Other etodolac [From Lodine] Allergy (Verified 08/08/14 17:26) Unknown ibuprofen Allergy (Verified 08/08/14 17:26) Unknown Penicillins [PCN] Allergy (Verified 06/24/13 21:25) Hives poison librado extract Allergy (Verified 11/09/14 18:28) Swelling poison oak extract Allergy (Verified 11/09/14 18:28) Swelling rofecoxib [From Vioxx] Allergy (Verified 06/24/13 21:27) Other venom-honey bee [bee venom (honey bee)] Allergy (Verified 11/09/14 18:28) Swelling TAPE Adverse Reaction (Uncoded 11/09/14 18:28) Other [facility] Social History (Updated 10/10/18 @ 10:20 by YASMANY Simons) Smoking Status: Current every day smoker HPI Bilat Wrists: Surgical H&P: Yes Details: Parts of this documentation were recorded by a scribe, this documentation accurately reflects the service provided and the decisions made by me, YASMANY Simons 10/10/18 0997. PETRA STEWART is a 52 year old F here today for 3 month F/U after right CTR and left carpal tunnel injection. DOS: 07/18/18 Patient states her right hand is about 80% improved since surgery. Had good ROM. Patient started having her left carpal tunnel symptoms back about 1 month ago. Patient states her 2nd-5th fingers are constantly tingling and it feels like pins and needles. Has been doing night bracing for the left wrist. Has occasionally weakness of her left hand. Patient does have some mild pain over her anterior wrist. Has stiffness of the left hand. ROS Const Reports system reviewed and no additional complaints, except as docu Eyes Reports system reviewed and no additional complaints, except as docu ENT Reports system reviewed and no additional complaints, except as docu Card Reports system reviewed and no additional complaints, except as docu Resp Reports system reviewed and no additional complaints, except as docu GI Reports system reviewed and no additional complaints, except as docu Musc Reports system reviewed and no additional complaints, except as docu, Reports as per HPI Skin/Breast Reports system reviewed and no additional complaints, except as docu Neuro Yes system reviewed and no additional complaints, except as docu Psych Reports system reviewed and no additional complaints, except as docu Endo Reports system reviewed and no additional complaints, except as docu Gene/Lymph Reports system reviewed and no additional complaints, except as docu Aller/Immun Reports system reviewed and no additional complaints, except as docu Ortho Exam Right Wrist/Hand Skin/Wound: Yes healed, No Swelling, No Ecchymosis Right Wrist: Yes ROM-Extension 0-60, ROM-Flexion 0-80, ROM-Pronation 0-80 and ROM-Supination 0-90; no Durken's Test Motor: EPL: 5, FDP-2: 5, 1st Dorsal Interosseous: 5 Sensation: Radial: I, Ulnar: I, Median: I Left Wrist/Hand Skin/Wound: No Swelling, No Ecchymosis Left Wrist: Yes ROM-Extension 0-60, Yes ROM-Flexion 0-80, Yes ROM-Pronation 0- 80, Yes ROM-Supination 0-90 and Yes Durken's Test Motor: EPL: 5, FDP-2: 5 Sensation: Radial: I, Ulnar: I, Median: D WRIST: No acute abnormalities on inspection. No localized or generalized swelling. No skin changes. There is no evident atrophy of thenar eminence. She does have positive Durken's and some decreased sensation in the median nerve distribution. Otherwise she has full range of motion of the wrist and fingers. Assessment & Plan Problems 1. Left carpal tunnel syndrome G56.02 2. History of carpal tunnel surgery of right wrist Z98.890 Plan Patient presents today for follow-up of right carpal tunnel release which is doing very well. She has no more numbness and tingling of the hand and has no more pains at night or with use. She is very pleased with how this has progressed. At this time she continues to have left carpal tunnel symptoms and therefore would like to proceed with carpal tunnel release of this hand as well. Risks and benefits of surgery were discussed in detail. Questions were answered and consent was signed in office today. Patient will be contacted by anesthesia for preanesthesia testing. Her surgical scrub was given today to be used the night before and morning of. We will notify her of the date of her surgery and she will be informed the day before of the time of surgery. Patient can notify our office with any concerns or complaints in the meantime. This note was generated with [employer] software. It may contain incorrect words, spelling, and punctuation that were not noted in checking the note before signing. Coding Level of Care Code Off vis,est,level 2 Diagnoses Left carpal tunnel syndrome G56.02 History of carpal tunnel surgery of right wrist Z98.890 10/10/18 1020 <Electronically signed by Daryn JADE> Date _ Daryn JADE
--- NOTE | 2018-10-30 16:35 | HP.PCM_ITS ---
History and Physical I have re-examined the patient. There are no clinical changes since date of exam. Intake Vital Signs 10/10/18 Body Mass Index (BMI) 20.5 Intake Visit Reasons: Bilat Wrists Chief Complaint: LEFT HIP PAIN Allergies amitriptyline HCl [From Elavil] Allergy (Verified 06/24/13 21:26) Nausea aspirin [ASA] Allergy (Verified 06/24/13 21:26) Nausea bupropion HCl [From Wellbutrin] Allergy (Verified 06/24/13 21:25) Other etodolac [From Lodine] Allergy (Verified 08/08/14 17:26) Unknown ibuprofen Allergy (Verified 08/08/14 17:26) Unknown Penicillins [PCN] Allergy (Verified 06/24/13 21:25) Hives poison librado extract Allergy (Verified 11/09/14 18:28) Swelling poison oak extract Allergy (Verified 11/09/14 18:28) Swelling rofecoxib [From Vioxx] Allergy (Verified 06/24/13 21:27) Other venom-honey bee [bee venom (honey bee)] Allergy (Verified 11/09/14 18:28) Swelling TAPE Adverse Reaction (Uncoded 11/09/14 18:28) Other [facility] Social History (Updated 10/10/18 @ 10:20 by YASMANY Simons) Smoking Status: Current every day smoker HPI Bilat Wrists: Surgical H&P: Yes Details: Parts of this documentation were recorded by a scribe, this docume ntation accurately reflects the service provided and the decisions made by me, YASMANY Simons 10/10/18 0983. PETRA STEWART is a 52 year old F here today for 3 month F/U after right CTR and left carpal tunnel injection. DOS: 07/18/18 Patient states her right hand is about 80% improved since surgery. Had good ROM. Patient started having her left carpal tunnel symptoms back about 1 month ago. Patient states her 2nd-5th fingers are constantly tingling and it feels like pins and needles. Has been doing night bracing for the left wrist. Has occasionally weakness of her left hand. Patient does have some mild pain over her anterior wrist. Has stiffness of the left hand. ROS Const Reports system reviewed and no additional complaints, except as docu Eyes Reports system reviewed and no additional complaints, except as docu ENT Reports system reviewed and no additional complaints, except as docu Card Reports system reviewed and no additional complaints, except as docu Resp Reports system reviewed and no additional complaints, except as docu GI Reports system reviewed and no additional complaints, except as docu Musc Reports system reviewed and no additional complaints, except as docu, Reports as per HPI Skin/Breast Reports system reviewed and no additional complaints, except as docu Neuro Yes system reviewed and no additional complaints, except as docu Psych Reports system reviewed and no additional complaints, except as docu Endo Reports system reviewed and no additional complaints, except as docu Gene/Lymph Reports system reviewed and no additional complaints, except as docu Aller/Immun Reports system reviewed and no additional complaints, except as docu Ortho Exam Right Wrist/Hand Skin/Wound: Yes healed, No Swelling, No Ecchymosis Right Wrist: Yes ROM-Extension 0-60, ROM-Flexion 0-80, ROM-Pronation 0-80 and ROM-Supination 0-90; no Durken's Test Motor: EPL: 5, FDP-2: 5, 1st Dorsal Interosseous: 5 Sensation: Radial: I, Ulnar: I, Median: I Left Wrist/Hand Skin/Wound: No Swelling, No Ecchymosis Left Wrist: Yes ROM-Extension 0-60, Yes ROM-Flexion 0-80, Yes ROM-Pronation 0- 80, Yes ROM-Supination 0-90 and Yes Durken's Test Motor: EPL: 5, FDP-2: 5 Sensation: Radial: I, Ulnar: I, Median: D WRIST: No acute abnormalities on inspection. No localized or generalized swelling. No skin changes. There is no evident atrophy of thenar eminence. She does have positive Durken's and some decreased sensation in the median nerve distribution. Otherwise she has full range of motion of the wrist and fingers. Assessment & Plan Problems 1. Left carpal tunnel syndrome G56.02 2. History of carpal tunnel surgery of right wrist Z98.890 Plan Patient presents today for follow-up of right carpal tunnel release which is doing very well. She has no more numbness and tingling of the hand and has no more pains at night or with use. She is very pleased with how this has progressed. At this time she continues to have left carpal tunnel symptoms and therefore would like to proceed with carpal tunnel release of this hand as well. Risks and benefits of surgery were discussed in detail. Questions were answered and consent was signed in office today. Patient will be contacted by anesthesia for preanesthesia testing. Her surgical scrub was given today to be used the night before and morning of. We will notify her of the date of her surgery and she will be informed the day before of the time of surgery. Patient can notify our office with any concerns or complaints in the meantime. This note was generated with [employer] software. It may contain incorrect words, spelling, and punctuation that were not noted in checking the note before signing. Coding Level of Care Code Off vis,est,level 2 Diagnoses Left carpal tunnel syndrome G56.02 History of carpal tunnel surgery of right wrist Z98.890
[2018-10-31 15:09] VITALS: BP 127/62; PULSE 82; RESP 16; TEMP 36.8; O2SAT 98; BMI 21.0
[2018-10-31] MEDS: Mupirocin Ointment 22gm Tube 1 APPLIC (15:15)
[2018-10-31] MEDS: Cefazolin 2 GM in 0.9% Normal Saline 100 ML IV (15:52)
[2018-10-31 16:12] VITALS: BP 111/67; BP 127/62; PULSE 75; RESP 16; TEMP 36.4; O2SAT 98
[2018-10-31 16:15] VITALS: BP 111/70; BP 127/62; PULSE 75; RESP 16; O2SAT 98
[2018-10-31 16:20] VITALS: BP 112/64; BP 127/62; PULSE 75; RESP 16; O2SAT 96
--- NOTE | 2018-10-31 16:20 | PCM.DC.ORTHO ---
Discharge Diet: No Restrictions - Leave dressing intact until seen in postop clinic in 2 weeks, call with concerns, stop all other Tylenol products, Discharge Activity: May Not Drive May shower in (days): 1 Ice area for (Minutes): 20 - Every hour while awake. Weight Bearing Status: Weight bearing as tolerated Keep extremity elevated above heart level: Operative Extremity Call your doctor if your incision/area has: Continuous Slow Oozing, Sudden Increased Bleeding, Increased Pain/ Swelling, Increased Redness, Foul Smelling Discharge Call your doctor if you observe: Fever of 101 or Higher, Coldness, Increased Pain, Numbness or Tingling, Change in Color, Calf discomfort Allergies/Adverse Reactions: Allergies amitriptyline HCl [From Elavil] Allergy (Verified 10/25/18 11:42) Nausea aspirin [ASA] Allergy (Verified 10/25/18 11:42) Nausea bacitracin [From Neosporin (abs-[id number]-jiiox)] Allergy (Verified 10/25/18 11:42) Rash bupropion HCl [From Wellbutrin] Allergy (Verified 10/25/18 11:42) Other etodolac [From Lodine] Allergy (Verified 10/25/18 11:42) Unknown ibuprofen Allergy (Verified 10/25/18 11:42) Unknown neomycin [From Neosporin (cyc-sge-djzfl)] Allergy (Verified 10/25/18 11:42) Rash Penicillins [PCN] Allergy (Verified 10/25/18 11:42) Hives poison librado extract Allergy (Verified 10/25/18 11:42) Swelling poison oak extract Allergy (Verified 10/25/18 11:42) Swelling polymyxin B [From Neosporin (qda-mli-thpwn)] Allergy (Verified 10/25/18 11:42) Rash rofecoxib [From Vioxx] Allergy (Verified 10/25/18 11:42) Other varenicline [From Chantix] Allergy (Verified 10/25/18 11:42) Rash venom-honey bee [bee venom (honey bee)] Allergy (Verified 10/25/18 11:42) Swelling acetaminophen [From Vicodin] Adverse Reaction (Verified 10/25/18 11:42) Nausea/Vom/Diarrhea hydrocodone [From Vicodin] Adverse Reaction (Verified 10/25/18 11:42) Nausea/Vom/Diarrhea TAPE Adverse Reaction (Uncoded 10/25/18 11:42) Other Medications to take at Discharge Clonazepam [Klonopin] 0.5 mg PO TID PRN PRN 01/08/15 Duloxetine HCl 30 mg PO BID 01/08/15 Levothyroxine [Synthroid] 50 mcg PO DAILY 01/08/15 Celecoxib [Celebrex] 200 mg PO DAILY 07/13/18 Fluticasone/Vilanterol [Breo Ellipta Inhaler] 1 puff IH DAILY 07/13/18 Omeprazole 40 mg PO DAILY 07/13/18 L.acidoph,Paracasei, B.lactis [Probiotic] 1 ea PO DAILY 10/25/18 Oxycodone HCl/Acetaminophen [Percocet 5/325] 1 - 2 tablet PO Q6H PRN PRN 5 Days #25 tablet 10/31/18 The following prescriptions were given: Oxycodone HCl/Acetaminophen [Percocet 5/325] 1 - 2 tablet PO Q6H PRN PRN 5 Days #25 tablet PRN Reason: Pain Transmission Status: Sent to [facility] Primary Care Physician: Christa Iverson NP-C [Primary Care Provider] - Test Results: Test results from this visit will be discussed in further detail at your follow-up appointment, if applicable. Please Follow Up With: María Lynn DO - [phone]
--- NOTE | 2018-10-31 16:21 | PCM.OPRPT ---
Report of Operation Date of Procedure: 10/31/18 Pre-Operative Diagnosis: left carpal tunnel syndrome Post-Operative Diagnosis: same Surgery/Procedure Performed:: left carpal tunnel release Type of Anesthesia:: Carlos Anderson Anesthesiologist: Remberto Golden Fluids Replaced: 600cc lr Description of Procedure: Preoperative note Patient is a { 52 yo female } patient with nerve conduction study confirming carpal tunnel syndrome. Patient failed conservative treatment for her carpal tunnel elected proceed with left carpal tunnel release. Risks benefits and alternatives surgery discussed with patient. Risks including but not limited to blood loss, blood clot, infection, neurovascular injury, failure procedure, loss of life and loss of limb. Patient is aware like proceed with left carpal tunnel release. Operative note Patient seen and examined preoperative holding area. Left hand was marked. History and physical and consent reviewed. Patient was brought to the operating room placed supine on the operating table. Sign in, anesthesia, antibiotics were administered. Left upper extremity was prepped and draped after Lorenzo block was initiated. All bony prominences well-padded SCDs placed on bilateral lower extremities. We marked out our incisions for our carpal tunnel release at the intersection of Jolene's line in the fourth ray flexed. We extended about a centimeter and a half. Timeout was performed. We then checked ensure that the Carlos block was working with pickups which it was. We then used a 15 blade to make a skin incision. We then dissected down tenotomy syllable of the transverse carpal ligament. We then used a new 15 blade cut through the transverse carpal ligament down to the level of the median nerve. We then further released the median nerve the combination of the 15 blade and tenotomies. The nerve was grayish in color and adherent to the transverse carpal ligament volarly. We released the transverse carpal ligament distally to the fat pad and then proximally under standard technique. We then palpated to ensure that we released all of the transverse carpal ligament which we did. We irrigated the incision with copious amounts of sterile saline. All bleeders were coagulated. The incision was closed with interrupted 4-0 nylon stitches. Tourniquet was deflated for total working time of 11 minutes. Patient tolerated procedure well there were no complications. Patient transferred to recovery room in stable condition. Postoperative note Hospital pharmacy has prescription Leave dressing clean dry and intact Follow-up in 2 weeks Call with concerns This note was generated with [employer] software. It may contain incorrect words, spelling, and punctuation that were not noted in checking the note before signing.
[2018-10-31 16:25] VITALS: BP 118/74; BP 127/62; PULSE 72; RESP 16; TEMP 36.3; O2SAT 98
[2018-10-31] MEDS: HYDROcodone Bitartrate/Apap 5/325 Tablet PO (16:49)
[2018-10-31 17:00] VITALS: BP 127/62
== END 2018-10-31 17:25 | disposition home or self-care (01) ==
LOC: SDC 14:50 → AC 14:52
PROVIDERS: Family Provider Nurse Practitioner Family; PCP Nurse Practitioner Family; Referring Provider Orthopaedic Surgery; Visit Provider Orthopaedic Surgery
PROC: (CPT 64721; principal; 2018-10-31 16:00)
DX: G56.02 Carpal tunnel syndrome, left upper limb (principal); K58.9 Irritable bowel syndrome, unspecified; F32.9 Major depressive disorder, single episode, unspecified; F41.9 Anxiety disorder, unspecified; F17.200 Nicotine dependence, unspecified, uncomplicated; Z79.899 Other long term (current) drug therapy
CPT/HCPCS: 01810; 64721; J7120; A4216

== ENCOUNTER → 2018-11-30 14:23 | Outpatient (CLI) | payer MEDICAID, SELFPAY ==
[2018-11-13 09:49] VITALS: BMI 21.0
--- NOTE | 2018-11-30 14:24 | RAD_ITS ---
STUDY: X-RAY - LEFT WRIST REASON FOR EXAM: Female, 53 years old. Wrist pain without history of trauma. TECHNIQUE: 3 view(s) of the wrist were obtained. COMPARISON: Prior left wrist radiograph of April 18, 2018 FINDINGS: Normal visualized distal radius and ulna. Mild degenerative narrowing of the radiocarpal joint. Normal distal radioulnar articulation. Normal carpal bones. 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 Mild degenerative arthrosis of the first carpometacarpal joint. Normal second through fifth carpometacarpal articulations. Normal visualized metacarpal bones. The soft tissue structures are unremarkable. RAD/Wrist min 3 Views IMPRESSION: Mild degenerative arthrosis of the articulation between the navicular and greater multangular and the first carpometacarpal joint. No substantial changes from prior exam. Electronically Signed: Katelynn Rosas MD at 17:50 EDT , Service support ,
== END ==
PROVIDERS: Family Provider Nurse Practitioner Family; PCP Nurse Practitioner Family; Referring Provider Physician Assistant; Visit Provider Physician Assistant
DX: M25.532 Pain in left wrist (principal)
CPT/HCPCS: 73110

== ENCOUNTER → 2019-01-24 13:17 | Outpatient (CLI) | payer MEDICAID, SELFPAY ==
[2019-01-24 13:16] VITALS: BMI 21.0
--- NOTE | 2019-01-24 13:20 | RAD_ITS ---
STUDY: X-RAY - RIGHT HAND, ATTENTION FIRST FINGER REASON FOR EXAM: Female, 53 years old. Trigger finger. TECHNIQUE: 3 view(s) of the finger were obtained. COMPARISON: None. FINDINGS: There is demineralization of the metacarpal head. There is moderate degenerative arthrosis of the metacarpophalangeal joint. There is demineralization of the proximal phalanx. There is demineralization of the distal phalanx. There is moderate degenerative arthrosis of the interphalangeal joint. There is no soft tissue swelling. There is no demonstrated fracture. RAD/Finger(s) Min 2 Views IMPRESSION: Diffuse osteopenia along with degenerative disease as described above. Electronically Signed: Rosemary Fofana MD at 4:15 EDT , Service support ,
== END ==
PROVIDERS: Family Provider Nurse Practitioner Family; PCP Nurse Practitioner Family; Referring Provider Physician Assistant; Visit Provider Physician Assistant
DX: M65.311 Trigger thumb, right thumb (principal)
CPT/HCPCS: 73140

== ENCOUNTER 2019-03-05 10:41 | Emergency (ER) | payer MEDICAID, SELFPAY ==
[2019-01-24 13:16] VITALS: BMI 21.0
[2019-03-05 10:43] VITALS: BP 158/107; PULSE 80; RESP 16; TEMP 36.7; O2SAT 98; BMI 21.4
--- NOTE | 2019-03-05 10:55 | CT_ITS ---
STUDY: CT ABDOMEN AND PELVIS WITH CONTRAST REASON FOR EXAM: Female, 53 years old. Abdominal pain RADIATION DOSAGE (If Supplied By Facility): CTDIvol = ( 5.55 ) mGy, DLP = ( 330.16 ) mGycm TECHNIQUE: Transaxial images were obtained from the dome of the diaphragm to the symphysis pubis without oral contrast. IV Isovue 370 100 was administered. Sagittal and coronal images were reconstructed. Individualized dose optimization techniques were used for this CT. COMPARISON: None. FINDINGS: 3 mm peripheral right lower lobe nodule on series 2 image 5. A. The visualized portions of the heart are within normal limits. There is decreased attenuation of the liver consistent with steatosis. Normal gallbladder and extrahepatic biliary system. Normal spleen. Normal pancreas. Normal bilateral adrenal glands. Normal right kidney. Normal left kidney. Normal visualized stomach. Normal small intestine. There is marked diffuse constipation. No bowel wall thickening or obstruction. There is non-visualization of the appendix. There is diffuse atherosclerotic calcification of the abdominal aorta, without a demonstrated aneurysm. Normal inferior vena cava. Normal retroperitoneum. Normal urinary bladder. Normal abdominal wall. Normal osseous structures. CT/Abdomen/Pelvis W IV Cont ONLY IMPRESSION: Marked diffuse constipation. 3 mm right lower lobe nodule. This high risk for developing pulmonary malignancy continued annual CT is recommended. If low risk, no follow-up is recommended. Electronically Signed: Stewart Stanford, at 12:24 EST Tel , Service support ,
--- NOTE | 2019-03-05 10:57 | ED.DCSUM_ITS ---
- ER Visit Summary Date of Service: 03/05/19 Chief Complaint: Left flank pain History of Present Illness: The patient is a 53 F history of arthritis, fibromyalgia, prior appendectomy, cholecystectomy, partial enterectomy and partial thyroidectomy. Patient states since Monday about 3 days she has had left flank pain. Associated nausea. No vomiting. No diarrhea. No constipation. No dysuria urgency or frequency. No hematuria. No fever. No trauma. Physical Examination: Middle-aged female no acute distress vital signs stable afebrile. HEENT exam unremarkable. Lungs are clear. Heart regular rhythm. Abdomen is soft. Nondistended. Normal bowel sounds. No peritoneal signs. No hernias or masses. No obstruction. Her pains along the left flank is not specifically reproducible. Extremities moves all 4. Neurovascular intact. No edema. Normal range of motion. Neurologically she is awake and alert. Test Results: CBC normal white count of 8. Hemoglobin 13. Electrolytes unremarkable normal creatinine gap. UA 2+ bacteria positive nitrates no whites or reds a culture will be sent with her left flank pain should be treated as a UTI. CT flank study without contrast shows constipation and a 3 mm right lower lobe nodule but nothing acute otherwise and no stone. Emergency Department Course and Treatment: Patient treated with IV Zofran for nausea. CAT scan labs a urinalysis to be obtained. Repeat exam patient is doing well at 1425. Abdomen is benign. She and I discussed test results. Follow-up for the lung nodule. She will be started on Keflex 500 4 times daily for 10 days. Urine culture sent. Magnesium citrate for the constipation. Treatment Plan: Antibiotic 1 pill 4 times a day till gone. Plenty of fluids and rest. Follow-up with your doctor. To be reassessed for the lung nodule seen on the CAT scan. Disposition: Discharge Impression: Acute left flank pain secondary to UTI Acute constipation Incidental finding of a right lower lobe lung nodule which will need further evaluation This note was generated with [employer] dictation software. It may contain incorrect words, spelling, and punctuation that were not noted in review of the chart prior to signing ED Disposition - Plan for ED Patient: Referrals: Christa Iverson, DOMI-C [Primary Care Provider] -
[2019-03-05 11:17] LABS: Absolute Lymphocyte Count 3.54 X10^3/uL (0.83-4.51); Absolute Neutrophil Count 4.3 X10^3/uL (2.0-7.7); Basophil# 0.03 X10^3/uL; Basophil% 0.3 % (0-1); Eosinophil# 0.17 X10^3/uL; Eosinophils% 1.9 % (0-5); Hematocrit 41.4 % (37-47); Hemoglobin 13.2 g/dL (12.0-15.0); Lymphocyte # 3.54 X10^3/ul (4.0); Lymphocyte % 40.5 % (19-41); Mean Corp Hgb Conc 31.9 g/dL (32-36); Mean Corpuscular Hgb 29.6 pg (27.0-32.0); Mean Corpuscular Volume 92.8 fL (81-99); Mean Platelet Vol. 8.6 fl (6.2-12.0); Monocyte# 0.64 X10^3/uL; Monocyte% 7.3 % (0-10); NRBC Flagged by Analyzer 0 % (0-5); Neutrophil # 4.29 X10^3/uL (2.7-7.7); Neutrophil % 49.2 % (47-70); Platelet Count 293 K/mm3 (150-450); RBC Distribution Width CV 12.6 % (11.6-14.6); RBC Distribution Width SD 42.8 fl (35.1-43.9); Red Blood Count 4.46 M/mm3 (4.2-5.4); White Blood Count 8.7 K/mm3 (4.4-11.0)
[2019-03-05] MEDS: Ketorolac 30 MG/ML Syringe IV (11:23)
[2019-03-05] MEDS: Ondansetron 4 MG/2 ML Vial IV (11:23)
[2019-03-05 11:32] LABS: Anion Gap 5 (5-15); BUN 17 mg/dL (7-18); Calcium,Total 9.2 mg/dL (8.5-10.1); Chloride 108 mmol/L (98-107); Creatinine, Serum 0.74 mg/dL (0.55-1.02); EST Glomerular Filtration Rate 88 mL/min (>60); Est Glom Filt Rate - Afr Amer 107 mL/min (>60); Estimated Creatinine Clearance 71.13 ml/min; Glucose 88 mg/dL (74-106); Potassium 3.8 mmol/L (3.5-5.1); Sodium Level 139 mmol/L (136-145)
[2019-03-05 11:34] LABS: Mucous, Urine 0 SEEN /hpf (<or=2+)
[2019-03-05 11:45] LABS: Color, Urine Yellow (Yellow); Glucose, Dipstick Normal (Normal); Ketone-Dipstick Negative (Negative); Leukocyte Esterase-Dipstick 25 /ul (Negative); Nitrite-Dipstick Positive (Negative); Occult Blood-Urine 25 /ul (Negative); Protein-Dipstick Negative (Negative); Urine Bilirubin Dipstick Negative (Negative); Urine Clarity Sl. Cloudy (Clear); Urine Urobilinogen Normal (Normal); Urine pH 6.5 (5.0 - 8.0)
[2019-03-05 11:52] LABS: Bacteria 2+ /hpf (None Seen); Red Blood Cells-Urine 0-5 SEEN /hpf (0-5); Squamous Epithelial Cells - UA 0-5 SEEN /hpf (5-10); White Blood Cells 0-5 SEEN /hpf (0-5)
--- NOTE | 2019-03-05 14:31 | ED.DEP ---
ED Disposition - Plan for ED Patient: Disposition: Home or Assisted Living Instructions: Bladder Infection (Cystitis), Female (Child), CONSTIPATION (Adult) Prescriptions: Cephalexin [Keflex] 500 mg PO Q6 #40 cap Prescription Printed Referrals: Christa Iverson NP-C [Primary Care Provider] - 3-5 Days Additional Instructions: Keflex 1 pill 4 times a day for your suspected urinary tract infection. A urine culture will be sent also. Magnesium citrate drink 1 entire bottle to help with the constipation. That should cause a bowel movement. On your CAT scan there was an incidental finding of a small nodule in your right lower lung. That can be followed up with your primary care physician. Make sure you notify of that when you follow-up.
== END 2019-03-05 14:46 | disposition home or self-care (01) ==
PROVIDERS: Emergency Provider Emergency Medicine; Family Provider Nurse Practitioner Family; PCP Nurse Practitioner Family
DX: N39.0 Urinary tract infection, site not specified (principal); K59.09 Other constipation; R91.1 Solitary pulmonary nodule; M79.7 Fibromyalgia; M19.90 Unspecified osteoarthritis, unspecified site; Z72.0 Tobacco use; Z90.49 Acquired absence of other specified parts of digestive tract
CPT/HCPCS: 74177; 80048; 81001; 85025; 87086; 87088; 87186; 96374; 96375; 99283; Q9967; A4216; J2405

== ENCOUNTER 2020-05-04 07:45 | Day surgery (SDC) | payer MEDICAID, SELFPAY ==
[2019-09-03 13:30] VITALS: BMI 21.4
[2020-05-04] VITALS (7 sets, daily range): BP systolic 110–115; BP diastolic 64–77; PULSE 73–87; RESP 16; TEMP 35.8–36.7; O2SAT 95–97; BMI 25.6
--- NOTE | 2020-05-04 07:00 | HP_ITS ---
Intake Intake Visit Reasons: right hand Accompanied by: Self Is patient in pain?: Yes Pain scale (1-10): 8 Allergies amitriptyline HCl [From Elavil] Allergy (Verified 04/09/20 10:28) Nausea aspirin [ASA] Allergy (Verified 04/09/20 10:28) Nausea bacitracin [From Neosporin (ewu-ysa-dxclu)] Allergy (Verified 04/09/20 10:28) Rash bupropion HCl [From Wellbutrin] Allergy (Verified 04/09/20 10:28) Other etodolac [From Lodine] Allergy (Verified 04/09/20 10:28) Unknown ibuprofen Allergy (Verified 04/09/20 10:28) Unknown neomycin [From Neosporin (rrg-cyh-yqgdn)] Allergy (Verified 04/09/20 10:28) Rash Penicillins [PCN] Allergy (Verified 04/09/20 10:28) Hives poison librado extract Allergy (Verified 04/09/20 10:28) Swelling poison oak extract Allergy (Verified 04/09/20 10:28) Swelling polymyxin B [From Neosporin (ifl-gme-cznkn)] Allergy (Verified 04/09/20 10:28) Rash rofecoxib [From Vioxx] Allergy (Verified 04/09/20 10:28) Other varenicline [From Chantix] Allergy (Verified 04/09/20 10:28) Rash venom-honey bee [bee venom (honey bee)] Allergy (Verified 04/09/20 10:28) Swelling acetaminophen [From Vicodin] Adverse Reaction (Verified 04/09/20 10:28) Nausea/Vom/Diarrhea gabapentin Adverse Reaction (Verified 04/09/20 10:28) Other hydrocodone [From Vicodin] Adverse Reaction (Verified 04/09/20 10:28) Nausea/Vom/Diarrhea TAPE Adverse Reaction (Uncoded 04/09/20 10:28) Other Medications Levothyroxine [Synthroid] 50 mcg PO DAILY 01/08/15 [History Confirmed 04/09/20] Fluticasone/Vilanterol [Breo Ellipta Inhaler] 1 puff IH DAILY 07/13/18 [History Confirmed 04/09/20] cimetidine 200 mg tablet 200 mg PO QACHS 04/09/20 [History Confirmed 04/09/20] esomeprazole magnesium 20 mg capsule,delayed release 20 mg PO DAILY 04/09/20 [History Confirmed 04/09/20] lactobacillus combination no.9 4 billion cell capsule 4,000 mmu cells PO DAILY 04/09/20 [History Confirmed 04/09/20] sennosides 8.6 mg-docusate sodium 50 mg tablet 2 tab-cap PO QHS tab 04/09/20 [History Confirmed 04/09/20] PFSH Social History (Updated 04/09/20 @ 11:[address] María Lynn, ) Smoking Status: Current every day smoker HPI right hand: Surgical H&P: Yes Details: Parts of this documentation were recorded by a scribe, this documentation accurately reflects the service provided and the decisions made by me, Dr. María Lynn DO 04/09/20 1021. PETRA STEWART is a 54 year old F here today for her right hand. Patient received an injection in 09/03/2019. Injection provided relief until March. Patient has reports on her right thumb locking up, numbness, stiffness and pain. Denies tingling and swelling. Patient is right hand dominant. Pain is rated: 8/10 from the pain scale. Patient currently takes Tylenol prn pain. Last finger x-ray was: 01/24/2019. ROS Musc Reports system reviewed and no additional complaints, except as docu, Reports joint pain, Denies joint swelling, Reports numbness, Reports stiffness, Denies tingling Skin/Breast Denies system reviewed and no additional complaints, except as docu, Denies dry skin, Denies redness, Denies lesions, Denies new lesions, Denies non-healing lesions, Denies itching, Denies rash, Denies skin ulcer, Denies sores, Denies wounds Neuro Yes numbness, No tingling Ortho Exam General General: Yes no acute distress Neurologic: Yes alert, Yes oriented x3 Psychologic: Yes reasonable and appropriate Right Wrist/Hand Skin/Wound: No Swelling, No Ecchymosis, Yes capillary refill normal A1 quincy trigger: Yes Sensation: Radial: I, Ulnar: I, Median: I WRIST: paulpable triggering Left Wrist/Hand Skin/Wound: No Swelling, No Ecchymosis Office Procedures Kenalog 40 mg/mL suspension for injection (triamcinolone acetonide) 20 mg intra- articular ONCE Injections Yes Trigger Finger Injection (thumb) Right Details: Obtained consent for injection. Under sterile conditions, injected the patients right trigger thumb with 1cc bupivacaine and 1/2cc kenalog The patient tolerated the injection well without any noted complication. Patient should call our office if redness develops, pain worsens or if they have any concerns. Office [facility] Performing Provider: María Lynn DO Administered by: María Lynn DO on 04/09/20 10:54 Dose Route Admin Location Lot Number Expiration Date NDC Grinding Wheel Facer 20 mg intra-articular right trigger thumb [id number] 01/01/21 5124-8393-79 [facility] Assessment & Plan Problems 1. Trigger thumb of right hand M65.311 Plan Patient educated that she has a right trigger thumb which is caused by the A1 quincy sticking and not gliding. PAtient educated that treatment options are do nothing or steroid injection or night splinting or surgical A1 quincy release. Patient wishes to proceed with right thumb trigger finger injection today. Follow up as needed or sooner if pain, swelling, numbness or associated symptoms, or concerns develop. All questions answered. Patient in agreement of plan. Orders Orders: Ortho Injections Today M65.311 Coding Level of Care Code Off vis,est,level 2 Diagnoses Trigger thumb of right hand M65.311 Additional Codes mud analysis well logging [email or web address] ([id number])
[2020-05-04] MEDS: Lactated Ringers 1,000 ML 100 ML IV (08:24)
[2020-05-04] MEDS: Bupivacaine 0.25% 30 ML Vial (08:44)
[2020-05-04] MEDS: Lidocaine 1% (5 ml sdv) 5 ML Vial (08:45)
[2020-05-04] MEDS: MethylPREDNISolone Acetate 40 MG/ML Vial IM (08:45)
--- NOTE | 2020-05-04 10:05 | RAD_ITS ---
PROCEDURE: Right hip injection. DATE OF EXAMINATION: 05/04/2020 INDICATION: Female, 54 years old. Right hip pain. FLUOROSCOPY TIME (if supplied): (8 seconds) minutes/seconds. One image was submitted. RAD/Fluoro Guided Needle Placement IMPRESSION: Intraoperative imaging provided for right hip injection. Electronically Signed: Aj Griggs MD at 9:34 EST , Service support ,
--- NOTE | 2020-05-04 10:18 | PCM.OPRPT ---
Report of Operation Date of Procedure: 05/04/20 Description of Surgical Findings:: PREOPERATIVE DIAGNOSIS: Osteoarthritis of the right hip POSTOPERATIVE DIAGNOSIS: Osteoarthritis of the right hip PROCEDURE PERFORMED: Right hip intraarticular steroid injection under fluoroscopy guidance. ANESTHESIA: MAC. BLOOD LOSS: Minimal. COMPLICATIONS: None. DESCRIPTION OF PROCEDURE: History and physical of today was reviewed. Risks and benefits of the procedure were explained. The patient understood and agreed to proceed. Informed consent was obtained. IV inserted per routine protocol. The patient was taken to the operating room and placed in the supine position. The hip area was prepped and draped in a sterile fashion using iodine x3. Under fluoroscopy guidance on AP view, the right hip joint was visualized. The skin and subcutaneous tissue was anesthetized with approximately 3 mL of 1% lidocaine using a 25-gauge regular needle approximately 3 cm cephalad to the right greater trochanter. Under direct visualization with fluoroscopy on an AP view, using a 22-gauge 5-inch spinal needle, the needle was advanced via the skin using the lateral approach. The tip of the needle was maneuvered and directed towards the superiormost aspect of the hip joint. Once the tip of the needle was at the vicinity of the joint, after negative aspiration for blood and positive aspiration of synovial fluid, a total of 1 mL of contrast was injected to confirm correct placement of the needle as well as halo spread around the hip joint. After repeated negative aspiration for blood and confirmation on AP as well as oblique view, a total of 10 mL of preservative-free 0.25% Marcaine with 80 mg of Depo-Medrol was injected easily. The needle was then removed intact. The patient experienced no sign or symptoms of intrathecal or intravascular injection. The patient experienced no paresthesia. The procedure was completed without any apparent difficulty or any complications. The patient appeared to tolerate it well. ASSESSMENT AND PLAN: This is a 54-year-old female with osteoarthritis of the right hip status post right hip intra-articular steroid injection under fluoroscopic guidance, patient will continue her current medications, patient will follow in approximately 2 weeks for reevaluation.
== END 2020-05-04 09:38 | disposition home or self-care (01) ==
LOC: SDC 07:47 → AC 07:47
PROVIDERS: PCP Nurse Practitioner Family; Referring Provider Anesthesiology Pain Medicine; Visit Provider Anesthesiology Pain Medicine
PROC: 3E0U3GC Introduction of Other Therapeutic Substance into Joints, Percutaneous Approach (ICD-10-PCS; CPT 20610; principal; 2020-05-04 09:15)
DX: M16.11 Unilateral primary osteoarthritis, right hip (principal); J44.9 Chronic obstructive pulmonary disease, unspecified; K58.9 Irritable bowel syndrome, unspecified; K21.9 Gastro-esophageal reflux disease without esophagitis; F32.9 Major depressive disorder, single episode, unspecified; F41.9 Anxiety disorder, unspecified; F17.200 Nicotine dependence, unspecified, uncomplicated; Z79.899 Other long term (current) drug therapy
CPT/HCPCS: 01200; 20610; 76000; 77002; J7120

== ENCOUNTER → 2020-11-28 08:32 | Outpatient (CLI) | payer MEDICAID, SELFPAY ==
--- NOTE | 2020-11-28 09:15 | MRI_ITS ---
STUDY: MRI THORACIC SPINE WITHOUT CONTRAST REASON FOR EXAM: Female, 55 years old. THORACIC BACK PAIN TECHNIQUE: Standardized fat and water weighted pulse sequences were obtained in the sagittal and axial planes. COMPARISON: None. FINDINGS: Normal kyphosis of the thoracic spine. There is no substantial scoliosis. T1-2, T2-3, T3-4, T4-5, T5-6, T6-7, T7-8, T8-9, T9-10, T10-11, T11-12: There are multilevel disc space narrowing and endplate spondylosis. Normal visualized thoracic cord. There is no abnormal enhancement. MRI/Spine Thoracic (Routine) IMPRESSION: Moderate degenerative changes. Electronically Signed: Chayito Sung MD at 16:00 EDT Tel , Service support ,
== END ==
PROVIDERS: PCP Nurse Practitioner Family; Referring Provider Nurse Practitioner Family; Visit Provider Nurse Practitioner Family
DX: M54.6 Pain in thoracic spine (principal)
CPT/HCPCS: 72146

== ENCOUNTER 2021-07-19 09:52 | Outpatient (CLI) | payer MEDICAID, SELFPAY | END 2021-07-19 23:59 | disposition home or self-care (01) | LOC: PAT 08-20 09:52 | PROVIDERS: PCP Nurse Practitioner Family; Visit Provider Anesthesiology Pain Medicine | DX: Z00.00 Encounter for general adult medical examination without abnormal findings (principal) ==

== ENCOUNTER 2021-07-22 19:11 | Emergency (ER) | payer MEDICAID, SELFPAY ==
[2021-07-22 19:12] VITALS: BP 177/82; PULSE 96; RESP 18; TEMP 35.9; O2SAT 97; BMI 25.4
--- NOTE | 2021-07-22 21:05 | RAD_ITS ---
EXAM: XR CHEST, 2 VIEWS CLINICAL INDICATION: sob, back pain TECHNIQUE: Frontal and lateral views of the chest. This report was created using [employer] report generation technology. COMPARISON: None. FINDINGS: LUNGS AND PLEURAL SPACES: Biapical scarring. No pneumothorax. No effusion. HEART: Unremarkable. Cardiac silhouette not enlarged. MEDIASTINUM: Central airways and mediastinal contour are unremarkable. BONES/JOINTS: Diffuse osteopenia. Degenerative changes of the spine. SOFT TISSUES: Unremarkable. RAD/Chest PA and Lateral IMPRESSION: No acute disease. Electronically Signed: Ilir Zelaya MD at 21:28 EDT ,
[2021-07-22] MEDS: diazePAM 5 MG Tablet PO (21:06)
[2021-07-22] MEDS: Morphine 4 MG/ML Syringe IM (21:06)
--- NOTE | 2021-07-22 22:07 | ED.VIS.BACK ---
HPI History of Present Illness Chief Complaint: Back Informant: patient Narrative Narrative: Patient is a 55-year-old female with history of COPD, fibromyalgia, anxiety and sciatica presenting with worsening back pain. Patient states has had worsening pain for the past week. It is in her left back and radiates up and down. States it feels like spasms. She notes she is been dealing with muscle spasms for the past month but they have been much worse over the past week. She also has a pins and needle sensation in her left back. She sometimes it hurts to breathe or any movement. She states she cannot take ibuprofen because of stomach upset. Has been taking Tylenol and methocarbamol with no relief. She has an appointment to see Dr. Damon, pain management tomorrow but did not think she could make it to that. She has not had any falls or traumas. Denies any cauda equina syndrome symptoms. No other complaints at this time. PFSH PFSH Medical History no medical history Home Medications levothyroxine 50 mcg PO DAILY 01/08/15 [History Last Taken 05/04/20] esomeprazole magnesium 20 mg capsule,delayed release 20 mg PO DAILY 04/09/20 [History Last Taken Unknown] lactobacillus combination no.9 4 billion cell capsule 4,000 mmu cells PO DAILY 04/09/20 [History Last Taken Unknown] albuterol sulfate 1 puff INHALATION PRN 04/29/20 [History Last Taken 05/04/20] celecoxib 200 mg PO DAILY 04/29/20 [History Last Taken Unknown] cimetidine 200 mg PO DAILY 04/29/20 [History Last Taken 05/04/20] linaclotide 145 mcg PO DAILY 04/29/20 [History Last Taken Unknown] mometasone-formoterol 100 mcg INHALATION PRN PRN 04/29/20 [History Last Taken Unknown] diazepam [Valium] 5 mg PO TID PRN #7 tab 07/22/21 [Rx Last Taken Unknown] Allergy/AdvReac Type Severity Reaction Status Date / Time amitriptyline HCl Allergy Nausea Verified 07/22/21 19:14 [From Elavil] aspirin [ASA] Allergy Nausea Verified 07/22/21 19:14 bacitracin Allergy Rash Verified 07/22/21 19:14 [From Neosporin ([id number])] bupropion HCl Allergy Other Verified 07/22/21 19:14 [From Wellbutrin] etodolac [From Lodine] Allergy Unknown Verified 07/22/21 19:14 ibuprofen Allergy Unknown Verified 07/22/21 19:14 neomycin Allergy Rash Verified 07/22/21 19:14 [From Neosporin ([id number])] Penicillins [PCN] Allergy Hives Verified 07/22/21 19:14 poison librado extract Allergy Swelling Verified 07/22/21 19:14 poison oak extract Allergy Swelling Verified 07/22/21 19:14 polymyxin B Allergy Rash Verified 07/22/21 19:14 [From Neosporin ([id number])] rofecoxib [From Vioxx] Allergy Other Verified 07/22/21 19:14 varenicline [From Chantix] Allergy Rash Verified 07/22/21 19:14 venom-honey bee Allergy Swelling Verified 07/22/21 19:14 [bee venom (honey bee)] acetaminophen [From Vicodin] AdvReac Nausea/Vom/ Verified 07/22/21 19:14 Diarrhea gabapentin AdvReac Other Verified 07/22/21 19:14 hydrocodone [From Vicodin] AdvReac Nausea/Vom/ Verified 07/22/21 19:14 Diarrhea TAPE AdvReac Other Uncoded 07/22/21 19:14 Surgical History no surgical history Social History Smoking Status: Current every day smoker tobacco type: cigarettes ROS ROS ED Constitutional Constitutional ED: Denies chills or fever(s) Eyes Eyes: Denies change in vision Cardiovascular Cardiovascular: Denies chest pain Respiratory/Chest Respiratory/Chest: Denies dyspnea Gastrointestinal Gastrointestinal: Denies abdominal pain, diarrhea or vomiting Genitourinary Genitourinary ED: Denies dysuria, hematuria or urinary frequency Musculoskeletal Musculoskeletal: Reports back pain; Denies arthralgias, myalgias or neck pain Integumentary Denies rash Neurologic Neurologic: Denies headache(s), paresthesias or weakness Psychiatric Psychiatric: Denies depression EXAM Physical Exam Const Vital Signs: 07/22/21 19:12 Temperature 96.6 F L Temperature Source Temporal Pulse Rate 96 Respiratory Rate 18 Blood Pressure 177/82 H Blood Pressure Mean 113 Pulse Ox 97 Oxygen Delivery Method Room Air Positive well nourished and well developed General Appearance ED: well developed HEENT Reports moist mucous membranes Eyes PERRL and EOMs intact bilaterally Neck supple Resp normal respiratory effort and clear to auscultation bilaterally Cardio regular rate, regular rhythm and no murmurs GI normal to inspection, nondistended, normoactive bowel sounds Back/Spine Back/Spine Narrative: No midline tenderness. General Back: Negative for CVA tenderness Cervical Spine: Negative for cervical spine tenderness Thoracic Spine / Upper Back: paraspinal muscle tenderness left Extremity normal to inspection General Extremety ED: Negative for edema or tenderness General Extremity: Negative for edema Psych mental status grossly normal Mood & Affect: tearful Skin no rashes or lesions noted and no wounds MDM MDM MDM Narrative Medical decision making narrative: Patient is evaluated for worsening back spasms. It is left anal. It is highly reproducible with palpation. She does feel like there is a pleuritic component I did get a chest x-ray to rule out any pneumonia or pneumothorax. This was negative. X-ray interpreted by myself as well as radiology. Patient is given a dose of IM morphine and oral Valium. On repeat evaluation she is much more comfortable. Should be given a short prescription for Valium until she can follow-up with her pain management doctor. She is counseled on return precautions. She verbalizes agreement understand with this plan. I do not think further imaging is indicated as I do not suspect cauda equina or an acute spinal fracture/nerve compression causing her pain. I do not think this is referred visceral pain. She has good distal pulses. Radiography Diagnostic Testing: Clinical Impression(s) from Imaging Studies Chest X-Ray 07/22/21 21:05 IMPRESSION: No acute disease. Electronically Signed: Ilir Zelaya MD at 21:28 EDT , Discharge Plan Triage Chief Complaint: Back ED Provider: Mari Vogel Dx/Rx/DC Orders Clinical Impression: Spasm of thoracic back muscle Instructions: ED Back Spasm, No Trauma Prescriptions: New diazepam [Valium] 5 mg tablet 5 mg PO TID PRN (Reason: muscle spasm) Qty: 7 RF: 0 No Action esomeprazole magnesium [Nexium] 20 mg capsule,delayed release(DR/EC) 20 mg PO DAILY RF: 0 Adult 50 Plus Probiotic 4 billion cell capsule 4,000 mmu cells PO DAILY RF: 0 levothyroxine 75 MCG tablet 50 mcg PO DAILY RF: 0 celecoxib 200 MG capsule 200 mg PO DAILY RF: 0 cimetidine 200 MG tablet 200 mg PO DAILY RF: 0 linaclotide 145 MCG capsule 145 mcg PO DAILY RF: 0 albuterol sulfate 1 PUFF inhaler 1 puff INHALATION PRN (Reason: Asthma) RF: 0 mometasone-formoterol 13 GM HFA aerosol inhaler 100 mcg INHALATION PRN PRN (Reason: Asthma) RF: 0 Primary Care Provider: Crhista Iverson NP Referrals: Christa Iverson NP, [employer] [Primary Care Provider] - Disposition Disposition: Home, Self Care
--- NOTE | 2021-07-22 22:20 | ED.RN ---
PATIENT STATES SHE DOES NOT WANT TO WAIT FOR MEDS TO GO. SHE DOES NOT HAVE HER WALLET WITH HER AND HER RIDE IS HERE. DR. HAUSER NOTIFIED.
== END 2021-07-22 22:26 | disposition home or self-care (01) ==
PROVIDERS: Emergency Provider Emergency Medicine; PCP Nurse Practitioner Family; Visit Provider Emergency Medicine
DX: M62.830 Muscle spasm of back (principal); J44.9 Chronic obstructive pulmonary disease, unspecified; M54.9 Dorsalgia, unspecified; M79.7 Fibromyalgia; F41.9 Anxiety disorder, unspecified; F17.210 Nicotine dependence, cigarettes, uncomplicated; Z79.899 Other long term (current) drug therapy
CPT/HCPCS: 71046; 96372; 99283

== ENCOUNTER 2022-05-24 17:51 | Emergency (ER) | payer MEDICAID, SELFPAY ==
[2022-05-24 17:52] VITALS: BP 152/77; PULSE 77; RESP 16; TEMP 36.4; O2SAT 98; BMI 28.5
[2022-05-24 18:00] VITALS: BP 146/87; PULSE 74
--- NOTE | 2022-05-24 18:04 | CT_ITS ---
STUDY: CTA CHEST REASON FOR EXAM: Female, 56 years old. Chest and back pain RADIATION DOSAGE (If Supplied By Facility): CTDIvol = ( 11.47 ) mGy, DLP = ( 353.36 ) mGycm TECHNIQUE: The examination was performed with the intravenous administration of IV 100mL Isovue-370. Post-processing of the angiographic images was performed, with multiplanar reformation and 3D reconstruction. Individualized dose optimization techniques were used for this CT. COMPARISON: None. FINDINGS: Normal enhancement of the main pulmonary artery and right and left pulmonary arteries. Normal enhancement of the bilateral peripheral pulmonary arteries. There is no demonstrated pulmonary embolism. Normal thoracic aorta and visualized great vessels. There is no demonstrated aortic dissection. Normal heart and pericardium. Normal mediastinum. Normal hilar regions. Normal visualized trachea and bronchi. The lungs are well expanded. There is emphysema of the lungs. There are fibrotic densities. There are multiple, at least 3, bilateral pulmonary nodules measuring up to 0.9 cm Normal pleura. Normal chest wall structures. There are degenerative changes of thoracic spine. Normal visualized upper abdomen. CT/CTA Chest W/WO Contrast IMPRESSION: CTA chest examination, without a demonstrated pulmonary embolism or arterial dissection. Emphysema. Multiple pulmonary nodules are nonspecific and could be inflammatory, infectious, or neoplastic. Recommend follow-up in 3-6 months. Electronically Signed: Joel Vang MD at 19:26 EST ,
--- NOTE | 2022-05-24 18:04 | EKG12_ITS ---
Test Reason : CP Blood Pressure : / mmHG Vent. Rate : 076 BPM Atrial Rate : 076 BPM P-R Int : 152 ms QRS Dur : 080 ms QT Int : 436 ms P-R-T Axes : 037 049 037 degrees QTc Int : 490 ms Normal sinus rhythm ST & T wave abnormality, consider anterior ischemia Abnormal ECG Confirmed by JOSE MONAHAN, SMILEY ([id number]), magazine editor CARLOS SINGH ([id number]) on 05/25/2022 9:05:07 AM Referred By: Confirmed By:SMILEY GARCIA MD
--- NOTE | 2022-05-24 18:05 | ED.VIS.CHEST ---
HPI History of Present Illness Chief Complaint: Chest Pain Narrative Narrative: 56-year-old female past medical history of COPD, anxiety, is a smoker presents with chest pain over the last 2 days. She states yesterday her pain was intermittent for hours. It was described as sharp and stabbing on the left side radiating towards her back and scapula, and down her left arm. She describes numbness and tingling of her left arm. No fevers or chills, no cough or shortness of breath. No diaphoresis. She states she is nauseated but has not vomited. While it was intermittent yesterday, its been more consistent today and constant. She woke up with the chest pain. She states it really hurts. She denies any leg swelling. Last stress test was approximately 3 years ago. She called her primary care provider who told her to come to the emergency department for evaluation of her left-sided chest and back pain. PFSH PFS Home Medications levothyroxine 75 mcg tablet 50 mcg PO DAILY 01/08/15 [History Last Taken 05/04/20] esomeprazole magnesium 20 mg capsule,delayed release (Nexium) 20 mg PO DAILY 04/09/20 [History Last Taken Unknown] lactobacillus combination no.9 4 billion cell capsule (Adult 50 Plus Probiotic) 4,000 mmu cells PO DAILY 04/09/20 [History Last Taken Unknown] albuterol sulfate 90 mcg/actuation aerosol inhaler 1 puff inhalation PRN PRN Asthma 04/29/20 [History Last Taken 05/04/20] cimetidine 200 mg tablet 200 mg PO DAILY 04/29/20 [History Last Taken 05/04/20] mometasone-formoterol HFA 100 mcg-5 mcg/actuation aerosol inhaler 100 mcg inhalation PRN PRN Asthma 04/29/20 [History Last Taken Unknown] citalopram 20 mg tablet 20 mg PO DAILY 05/24/22 [History Last Taken Unknown] hydroxyzine HCl 10 mg tablet 20 mg PO Q6H PRN PRN Anxiety 05/24/22 [History Last Taken Unknown] methocarbamol 500 mg tablet 500 mg PO TID PRN PRN Spasms 05/24/22 [History Last Taken Unknown] Allergy/AdvReac Type Severity Reaction Status Date / Time amitriptyline HCl Allergy Nausea Verified 05/24/22 17:53 [From Elavil] aspirin [ASA] Allergy Nausea Verified 05/24/22 17:53 bacitracin Allergy Rash Verified 05/24/22 17:53 [From Neosporin ([id number])] bupropion HCl Allergy Other Verified 05/24/22 17:53 [From Wellbutrin] etodolac [From Lodine] Allergy Unknown Verified 05/24/22 17:53 ibuprofen Allergy Unknown Verified 05/24/22 17:53 neomycin Allergy Rash Verified 05/24/22 17:53 [From Neosporin ([id number])] Penicillins [PCN] Allergy Hives Verified 05/24/22 17:53 poison librado extract Allergy Swelling Verified 05/24/22 17:53 poison oak extract Allergy Swelling Verified 05/24/22 17:53 polymyxin B Allergy Rash Verified 05/24/22 17:53 [From Neosporin ([id number])] rofecoxib [From Vioxx] Allergy Other Verified 05/24/22 17:53 varenicline [From Chantix] Allergy Rash Verified 05/24/22 17:53 venom-honey bee Allergy Swelling Verified 05/24/22 17:53 [bee venom (honey bee)] acetaminophen [From Vicodin] AdvReac Nausea/Vom/ Verified 05/24/22 17:53 Diarrhea adhesive tape AdvReac NEEDS Verified 05/24/22 17:53 FOLLOW-UP gabapentin AdvReac Other Verified 05/24/22 17:53 hydrocodone [From Vicodin] AdvReac Nausea/Vom/ Verified 05/24/22 17:53 Diarrhea Social History Smoking Status: Current every day smoker tobacco type: cigarettes ROS ROS ED ROS Narrative Constitutional: No fever, no chills. HEENT: No sore throat. No neck pain. No loss of vision. No rhinorrhea. Cardiovascular: Positive left-sided chest pain with radiation to back and down left arm.. No palpitations. No pedal edema. Respiratory: No cough, no shortness of breath. Abdominal: No abdominal pain. No nausea. No vomiting. Genitourinary: No dysuria. No hematuria. Musculoskeletal: No myalgias. No arthralgias. Neurologic: No headaches. No dizziness. No lightheadedness. Paresthesias of left arm. Skin: No rash. No change in color. Psychiatric: No depression. No anxiety. EXAM Physical Exam Narrative Exam Narrative: Afebrile. Vital signs noted. HEENT: Normocephalic. Atraumatic. PERRL, EOMI. Neck soft and supple. No point tenderness or step off. Cardiovascular: Regular rate and rhythm. No murmurs, rubs, or gallops appreciated. Respiratory: No tachypnea. Lungs clear to auscultation bilaterally. Gastrointestinal: Abdomen soft, nontender, with normoactive bowel sounds. No rebound or guarding. Neurological: Awake. Alert. Nonfocal, nonlateralizing. Skin: No rash. Normal color. No pallor. Musculoskeletal: No pedal edema. Full range of motion extremities. Const Vital Signs: 05/24/22 17:52 05/24/22 18:00 05/24/22 18:01 Temperature 97.5 F L Temperature Source Temporal Pulse Rate 77 74 Respiratory Rate 16 Respiratory Pattern Normal Blood Pressure 152/77 H 146/87 H Blood Pressure Mean 102 106 Pulse Ox 98 Oxygen Delivery Method Room Air Room Air 05/24/22 18:21 Temperature Temperature Source Pulse Rate Respiratory Rate Respiratory Pattern Blood Pressure Blood Pressure Mean Pulse Ox Oxygen Delivery Method Room Air Heart Score History: Moderately Suspicious ECG: Normal Age: >45 - <65 years Risk Factors: 1 or 2 Risk Factors Score: 3 MDM MDM MDM Narrative Medical decision making narrative: In the differential diagnosis is acute coronary syndrome/STEMI versus non-STEMI, and aortic dissection given her back pain radiating to her scapula. She does have risk factors including smoking and her age. Chest pain work-up was pursued, however she has an allergy to aspirin which is more nausea. This was held regardless. EKG was obtained to rule out STEMI and interpreted by myself which does demonstrate normal sinus rhythm at 76 bpm without ectopy or acute ST changes. No STEMI on my interpretation. With concern for aortic dissection, I do feel that imaging of CTA of the chest would be helpful, even to rule out pulmonary embolism. EKG was obtained and interpreted by myself which demonstrates normal sinus rhythm at 76 bpm without ectopy or acute ST changes. No STEMI. I reviewed her laboratory work and she has a normal white count of 7.6, hemoglobin normal at 13.4, hematocrit 40.9. Platelet count normal at 231. In review of her basic metabolic panel she has a normal sodium of 140, potassium of 3.6 and normal, chloride slightly elevated at 109. Normal BUN of 11 and normal creatinine of 0.69. Glucose is appropriately elevated at 111 with a normal anion gap of 7. Her high-sensitivity troponin is 4. This is greater than a 6-hour troponin as she has been having constant chest pain all day on the left side. I reviewed the radiology report on her CTA. There is no evidence of pulmonary embolism or arterial dissection. There was noted pulmonary nodules. She was told of the abnormal CT finding and I strongly suggested follow-up with her primary care physician as an outpatient regarding these. Smoking cessation was also discussed. At this point in time, I do feel she can be discharged safely home with follow-up. Return instructions to the emergency department were reviewed. Disposition is discharged home in stable condition. Lab Data Attestation: I reviewed the patient's lab results. Labs: Laboratory Results - last 24 hr 05/24/22 05/24/22 18:10 18:10 WBC 7.6 RBC 4.40 Hgb 13.4 Hct 40.9 MCV 93.0 MCH 30.5 MCHC 32.8 RDW Std Deviation 41.0 RDW Coeff of Jake 11.9 Plt Count 231 MPV 9.6 Immature Gran % (Auto) 0.300 Neut % (Auto) 47.0 Lymph % (Auto) 41.4 H Culberson % (Auto) 7.5 Eos % (Auto) 3.4 Baso % (Auto) 0.4 Absolute Neuts (auto) 3.6 Absolute Lymphs (auto) 3.13 Nucleated RBC % 0 Sodium 140 Potassium 3.6 Chloride 109 H Carbon Dioxide 24.0 Anion Gap 7 BUN 11 Creatinine 0.69 Estim Creat Clear Calc 73.72 Est GFR (MDRD) Af Amer 113 Est GFR (MDRD) Non-Af 93 BUN/Creatinine Ratio 15.9 Glucose 111 H Calcium 9.1 Troponin I High Sens 4 Radiography Diagnostic Testing: Clinical Impression(s) from Imaging Studies Chest CTA 05/24/22 18:04 IMPRESSION: CTA chest examination, without a demonstrated pulmonary embolism or arterial dissection. Emphysema. Multiple pulmonary nodules are nonspecific and could be inflammatory, infectious, or neoplastic. Recommend follow-up in 3-6 months. Electronically Signed: Joel Vang MD at 19:26 EST , Discharge Plan Triage Chief Complaint: Chest Pain ED Provider: Renaldo Jurado Dx/Rx/DC Orders Clinical Impression: Chest pain, Tobacco abuse, Pulmonary nodules Instructions: ED Chest Pain, Uncertain Cause, ED How to Quit Smoking Prescriptions: No Action esomeprazole magnesium [Nexium] 20 mg capsule,delayed release(DR/EC) 20 mg PO DAILY Adult 50 Plus Probiotic 4 billion cell capsule 4,000 mmu cells PO DAILY Rx Instructions: administer with a meal levothyroxine 75 MCG tablet 50 mcg PO DAILY cimetidine 200 MG tablet 200 mg PO DAILY albuterol sulfate 1 PUFF inhaler 1 puff INHALATION PRN PRN (Reason: Asthma) mometasone-formoterol 13 GM HFA aerosol inhaler 100 mcg INHALATION PRN PRN (Reason: Asthma) methocarbamol 500 mg tablet 500 mg PO TID PRN PRN (Reason: Spasms) citalopram 20 mg tablet 20 mg PO DAILY hydroxyzine HCl 10 mg tablet 20 mg PO Q6H PRN PRN (Reason: Anxiety) Label Comments: take 2 tablets by mouth four times a day if needed for anxiety for 30 DAYS Primary Care Provider: Christa Iverson NP Referrals: Christa Iverson NP, [employer] [Primary Care Provider] - 1-2 Days if not improving Activity Restrictions/Additional Instructions: Return to the emergency department with new or worsening symptoms. You have pulmonary nodules noted on your CT scan. Follow-up with your primary care provider regarding these. Stop smoking. Disposition Disposition: Home, Self Care
[2022-05-24 18:18] LABS: Absolute Lymphocyte Count 3.13 X10^3/uL (0.83-4.51); Absolute Neutrophil Count 3.6 X10^3/uL (2.0-7.7); Basophil# 0.03 X10^3/uL; Basophil% 0.4 % (0-1); Eosinophil# 0.26 X10^3/uL; Eosinophils% 3.4 % (0-5); Hematocrit 40.9 % (37-47); Hemoglobin 13.4 g/dL (12.0-15.0); Lymphocyte # 3.13 X10^3/ul (0.83-4.51); Lymphocyte % 41.4 % (19-41); Mean Corp Hgb Conc 32.8 g/dL (32-36); Mean Corpuscular Hgb 30.5 pg (27.0-32.0); Mean Platelet Vol. 9.6 fl (6.2-12.0); Monocyte# 0.57 X10^3/uL; Monocyte% 7.5 % (0-10); NRBC Flagged by Analyzer 0 % (0-5); Neutrophil # 3.55 X10^3/uL (2.7-7.7); Platelet Count 231 K/mm3 (150-450); RBC Distribution Width CV 11.9 % (11.6-14.6); White Blood Count 7.6 K/mm3 (4.4-11.0)
[2022-05-24] MEDS: 0.9% Normal Saline 1,000 ML 1000 ML IV (18:18)
[2022-05-24 18:35] LABS: Anion Gap 7 (5-15); BUN 11 mg/dL (7-18); BUN/Creat Ratio 15.9 RATIO (10-20); Calcium,Total 9.1 mg/dL (8.5-10.1); Chloride 109 mmol/L (98-107); Creatinine, Serum 0.69 mg/dL (0.55-1.02); EST Glomerular Filtration Rate 93 mL/min (>60); Est Glom Filt Rate - Afr Amer 113 mL/min (>60); Estimated Creatinine Clearance 73.72 ml/min; Glucose 111 mg/dL (74-106); Potassium 3.6 mmol/L (3.5-5.1); Sodium Level 140 mmol/L (136-145); Troponin-I HS (w/2H Reflex) 4 pg/mL (3.0-54.0)
[2022-05-24 19:40] VITALS: BP 145/65; PULSE 60; RESP 16; O2SAT 96
[2022-05-24 20:15] LABS: Reflex Troponin-HS? (from REC) Y
== END 2022-05-24 20:00 | disposition home or self-care (01) ==
PROVIDERS: Emergency Provider Emergency Medicine; PCP Nurse Practitioner Family; Visit Provider Emergency Medicine
DX: R07.9 Chest pain, unspecified (principal); J44.9 Chronic obstructive pulmonary disease, unspecified; R91.8 Other nonspecific abnormal finding of lung field; F17.210 Nicotine dependence, cigarettes, uncomplicated; F41.9 Anxiety disorder, unspecified
CPT/HCPCS: 71275; 80048; 84484; 85025; 93005; 96360; 99283; J7030; Q9967; A4216

== ENCOUNTER 2024-12-03 13:30 | Outpatient (RCR) | payer MEDICAID, SELFPAY ==
--- NOTE | 2024-10-22 15:47 | HP.PTEVAL_ITS ---
Patient's Visit Information Visit Information Visit Information: PETRA STEWART is a 58 year old F referred to Physical Therapy by EMILY Brannon with a diagnosis of Right Hip Pain. Date of Evaluation: 10/22/24 Physical Therapist: Gini Montes DPT Visit Plan Frequency: 2x /Week Duration: 4 Weeks Plan: Aquatic PT- focus on LE and core strength/stabilization- pain mgmt Subjective Subjective: Patient reports that her insurance won't pay for an MRI without PT. She has been having an issue with her back and right hip. The pain is so bad that she cries a lot with it and it goes from back all the way down the right leg. The pain has been going since the beginning of the year and gradually getting worse. She has been to the see the MD- she sees pain mgmt and they have done injections but they don't help. They are hopeful to do an MRI of her low back and her hip. She knows there is a lot of arthritis in her lumbar spine and right hip. Worst: 9/10 Agg: anything, lifting, bending, sitting, walking. Eases: nothing Best: 9/10. She is always at a 9/10. She describes her pain as sharp and shooting. Its always from her spine to her foot. When she goes to stand up and start walking she feels like her leg will give out on her. She uses a rollator all the time. Sleep: disturbed-hard to roll over. Work: not working. She has N/T in the right leg but it not as bad as the left leg but that has been going on for almost a year. No change in bowel or bladder. PMMHx/Meds: no change since saw ortho Objective Objective: Posture: forward head, rounded shoulders- is unable to correct due to pain Gait: rollator- decreased stance on the right LE- slow pierce HR/TR: able with weight shift to the left SLS: unable reports pain Sensation: WNL to gross touch to bilateral LE ROM: Lumbar: severe restriction in all planes, Right hip: Flexion: 90 degrees, Extn: neutral, IR/ER: neutral, Abd: 30 degrees, all with pain, knee: 0-120 degrees Strength: Core: poor, Hip: 3/5 in available range, Knee: 4/5 Ankle: 4+/5. Flex: HS: severe, Gastroc: severe Palpation: tender along lumbar spine, right gluts greater troch, quads and lateral knee joint Transfers: pt requires UE to move her right leg into supine position from sitting. She also had severe pain with tears after performing all transfers. All testing cause severe pain Balance/Special Test Scores Lower Extremity Functional Score: 20 Goals Goal 1:: Patient will be I with HEP and progression Goal Time Frame: 4-6 Weeks Goal 2:: Patient will ambulate >150 feet with a normalized gait pattern Goal Time Frame: 4-6 Weeks Goal 3:: Patient will perform all transfer without pain for 1 week Goal Time Frame: 4-6 Weeks Goal 4:: Patient will maintain proper posture t/o tx session to demo increased core s/s. Goal Time Frame: 4-6 Weeks Goal 5:: Patient will report 80% improvement Goal Time Frame: 4-6 Weeks Rehabilitation Potential Physical Therapy Diagnosis: Patient presents with decreased ROM, LE and core strength/stabilization, flex and muscular endurance leading to increased pain with ADL's. Rehabilitation Potential: Fair Anticipated Interventions Therapeutic Exercise to Include: Strength training, Endurance training, Balance training, Coordination, Agility training, Body mechanics, Postural training, Flexibilty training, Gait and locomotor training, Neuromotor development, In an aquatic setting, Dynamic Lumbar Stabilization and Scapular Strength/Stabilization For the Purpose of:: To improve muscle performance and motor function Text: Thank you for the opportunity to evaluate your patient. For Medicare and Medicare HMO plans, please review the plan of care and approve it. It will need to be FAXED BACK to us at [phone] for Medicare purposes. For Medicare only, by signing this I certify the plan of care. Please let me know if there are questions or concerns regarding this plan of care. Physician Signature: Da te:
--- NOTE | 2024-12-03 14:00 | HP.PTDCSUM_ITS ---
Discharge Summary D/C summary: It has been my pleasure to treat PETRA STEWART referred by Maile Coughlin NP- C, with the diagnosis of Right Hip Pain for a total of 6 visit(s). Discharge Date: Please see the following information for a summary of their discharge status. Subjective Subjective: I have made very little improvement Pain R HIP: Pain Intensity (Out of 10): 6 Overall Improvement % Improvement: 5 Objective Objective/Function: R hip pain ranges from 6-10/10 Pt is limited with all gait and transfers at this time secondary to pain. Pt has not made any significant improvements at this time. Goals Goal 1:: Patient will be I with HEP and progression Goal Progress: Progressing Goal 2:: Patient will ambulate >150 feet with a normalized gait pattern Goal Progress: Not Progressing Goal 3:: Patient will perform all transfer without pain for 1 week Goal Progress: Not Progressing Goal 4:: Patient will maintain proper posture t/o tx session to demo increased core s/s. Goal Progress: Progressing Goal 5:: Patient will report 80% improvement Goal Progress: Not Progressing Plan Plan: Discontinue, return to doctor. D/C Information d/c sentence: If there are questions or concerns regarding this patient's physical therapy, please feel free to call me at [phone]. Thank you for the referral of this patient. Sincerely, Freddie Nair, PT, ATC Balance/Gait/Functional tests Balance/Special Test Scores Lower Extremity Functional Score: 5 Improvement % Improvement: 5
== END 2024-12-03 19:00 | disposition home or self-care (01) ==
LOC: PT 13:30
PROVIDERS: PCP Nurse Practitioner Family; Referring Provider Nurse Practitioner Family; Visit Provider Nurse Practitioner Family
DX: M16.11 Unilateral primary osteoarthritis, right hip (principal); M47.816 Spondylosis without myelopathy or radiculopathy, lumbar region; M54.16 Radiculopathy, lumbar region
CPT/HCPCS: 97113; 97162; 97530

== ENCOUNTER → 2025-01-01 | Outpatient (CLI) | payer MEDICAID, SELFPAY ==
--- NOTE | 2025-01-01 16:08 | MRI_ITS ---
PROCEDURE: LOWER EXT JOINT ONLY (ROUTINE) 01/01/2025 REASON FOR EXAM: WORSENING L HIP PAIN, MULTIPLE CANDI INJECTIONS TECHNIQUE: Procedure Code: MRILEJ Modality: MR Procedure: LOWER EXT JOINT ONLY (ROUTINE) Multiplanar and multisequence images were obtained without IV contrast administration. 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 There is no collapse of the subchondral bone. Advanced osteoarthritic changes are present in the right hip with marginal osteophytes and subchondral cystic changes affect in the acetabular roof. Subchondral edema present. No loose body. Limited views of the contralateral left hip reveal minimal degenerative changes with loss of cartilage in the femoral head. Joint space narrowing evident. No loose body or effusion. Intrinsic ligaments of the hip appear within normal limits. Slight atrophy seen along the gluteus kyle muscles. Mild subcutaneous edema. Pelvic structures are within normal limits. Urinary bladder is normal. The uterus has been surgically removed. Loops of bowel are within normal limits. No adnexal mass seen. SI joints appear symmetrical. No edema of the sacrum. No sacral insufficiency fracture seen. MRI/Lower Ext Joint Only (Routine) IMPRESSION: Avascular necrosis of the right femoral head without collapse. Advanced osteoa rthritic changes of the right hip. No loose body. Small right joint effusion. Mild degenerative changes of the left hip. No acute fracture. Reading Location: [facility]
--- NOTE | 2025-01-01 16:08 | MRI_ITS ---
PROCEDURE: SPINE LUMBAR (ROUTINE) 01/01/2025 REASON FOR EXAM: WORSENING LUMBAR PAIN, RADICULOPATHY TECHNIQUE: Procedure Code: MRISPL Modality: MR Procedure: SPINE LUMBAR (ROUTINE) COMPARISON: 09/02/2024 FINDINGS: Vertebrae: The vertebral bodies are normal height. There is no abnormal marrow signal. No compression fracture deformity seen. Alignment: No salome or retrolisthesis. No scoliosis. Conus Medullaris: Ends at L1. The spinal cord has a normal course caliber and signal. There is no evidence of a tethered cord or mass. L1-2: Mild disc bulge. Facet arthropathy and ligamentum flavum hypertrophy. No central or foraminal stenosis. L2-3: Mild disc desiccation and disc bulge. Mild facet disease. No central or foraminal stenosis. L3-4: Mild disc bulge. Facet arthropathy and ligamentum flavum hypertrophy. No central or foraminal stenosis L4-5: Mild disc desiccation and disc bulge. Facet arthropathy and ligamentum flavum hypertrophy. Mild central stenosis. No foraminal encroachment. L5-S1: Diffuse disc desiccation and small annular tear centrally. No central or foraminal stenosis. Facet arthropathy present. Sacrum: Unremarkable Retroperitoneal soft tissues are within normal limits. No aneurysm or lymphadenopathy present. MRI/Spine Lumbar (Routine) IMPRESSION: Mild multilevel degenerative disc disease as stated above. Mild central stenos is at L4-5. Multilevel facet arthropathy. Reading Location: [id number]
== END | disposition home or self-care (01) ==
LOC: MRI 16:07
PROVIDERS: PCP Nurse Practitioner Family; Referring Provider Nurse Practitioner Family; Visit Provider Nurse Practitioner Family
DX: M16.11 Unilateral primary osteoarthritis, right hip (principal); M47.26 Other spondylosis with radiculopathy, lumbar region
CPT/HCPCS: 72148; 73721

== ENCOUNTER → 2025-02-12 | Outpatient (CLI) | payer MEDICAID, SELFPAY ==
--- NOTE | 2025-02-12 16:26 | CT_ITS ---
PROCEDURE: EXTREMITY LOWER WITHOUT CONTRA 02/12/2025 REASON FOR EXAM: TEMPLATING FOR RIGHT NOE TECHNIQUE: Procedure Code: CTELWO Modality: CT Procedure: EXTREMITY LOWER WITHOUT CONTRA Coronal and Sagittal reconstruction series were provided. CONTRAST: None One or more dose reduction techniques were used (e.g., Automated exposure control, adjustment of the mA and/or kV according to patient size, use of iterative reconstruction technique). RADIATION DOSE SUMMARY: DLP: 989 mGycm COMPARISON: None FINDINGS: There is severe osteoarthritis of the right hip, with loss of the joint space, subcortical cyst formation, and marginal osteophytes. There is no acute fracture or dislocation. There is no suspicious lytic or blastic lesion. There is no visible effusion or loose body. There is no soft tissue mass or adenopathy. Vascular calcifications are visible. CT/Extremity Lower without Contra IMPRESSION: There is severe osteoarthritis of the right hip, with loss of the joint space, subcortical cyst formation, and marginal osteophytes. Reading Location: [facility]
[2025-02-12 17:46] LABS: Magnesium 1.8 mg/dL (1.5-2.2)
[2025-02-22 08:09] LABS: Cotinine Screen Blood <1.0 ng/mL (.)
== END | disposition home or self-care (01) ==
LOC: CT 15:59
PROVIDERS: Student in an Organized Health Care Education/Training Program; PCP Nurse Practitioner Family; Referring Provider Orthopaedic Surgery; Visit Provider Orthopaedic Surgery
DX: Z01.818 Encounter for other preprocedural examination (principal); M16.11 Unilateral primary osteoarthritis, right hip
CPT/HCPCS: 80323; 73700; 83735; 84443; G0480

== ENCOUNTER 2025-03-11 13:24 | Inpatient (IN) | payer MEDICAID, SELFPAY ==
--- NOTE | 2025-03-04 09:47 | EKG12_ITS ---
Test Reason : PREOP Blood Pressure : */* mmHG Vent. Rate : 69 BPM Atrial Rate : 69 BPM P-R Int : 172 ms QRS Dur : 84 ms QT Int : 410 ms P-R-T Axes : 25 36 101 degrees QTcB Int : 439 ms Normal sinus rhythm ST & T wave abnormality, consider anterior ischemia Abnormal ECG Confirmed by Vinicio Ho ([id number]), science editor CARLOS SINGH ([id number]) on 03/05/2025 5:51:14 AM Referred By: Tyler Wang Confirmed By: Vinicio Ho
[2025-03-04 11:23] LABS: Hematocrit 38.5 % (37-47); Hemoglobin 12.3 g/dL (12.0-15.0); Immature Granulocytes Count 0.010 X10^3/uL (0.0-0.0); Mean Corp Hgb Conc 31.9 g/dL (32-36); Mean Corpuscular Volume 90.6 fL (81-99); Mean Platelet Vol. 9.5 fl (6.2-12.0); NRBC Flagged by Analyzer 0 % (0-5); Platelet Count 204 K/mm3 (150-450); RBC Distribution Width CV 12.9 % (11.6-14.6); RBC Distribution Width SD 42.5 fl (35.1-43.9); Red Blood Count 4.25 M/mm3 (4.2-5.4); White Blood Count 4.1 K/mm3 (4.4-11.0)
[2025-03-04 11:33] LABS: Prothrombin Time (Protime)PT. 13.1 SECONDS (11.7-14.9)
[2025-03-04 11:34] LABS: Partial Thromboplast Time 23.2 Seconds (24.1-36.2)
[2025-03-04 12:11] LABS: Anion Gap 11 (5-15); BUN 23 mg/dL (4-19); BUN/Creat Ratio 27.5 RATIO (10-20); Calcium,Total 9.2 mg/dL (7.6-11.0); Carbon Dioxide 22.5 mmol/L (21.0-32.0); Chloride 106 mmol/L (98-108); Glucose 103 mg/dL (70-99); Potassium 4.6 mmol/L (3.3-5.1)
--- NOTE | 2025-03-05 09:30 | PAT.ANESEVAL ---
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 When Was Last Pacemaker Check QUESTION #4 FULL TEXT: You/Your Family Experience fever (hyperthermia) with Anesthesia Last Oral Intake Last Oral intake: Last Oral Intake NPO since Meds taken in AM with sips of water? Meds patient instructed to take am of surgery PONV PONV - shipping and receiving weigher: PONV - shipping and receiving weigher Female Yes 02/11/25 15:32 HX of Motion Sickness No 02/11/25 15:32 HX of N/V After Surgery Yes 02/11/25 15:32 Non-Smoker Yes 02/11/25 15:32 Duration of Surgery greater Yes 02/11/25 15:32 than 60 minutes Number of Risk Factors 4 02/11/25 15:32 PONV Score Severe Risk 02/11/25 15:32 Height & Weight Height & Weight: Anesthesia: Height & Weight Height 5 ft 2 in 01/13/25 13:57 Respiratory Assessment Respiratory Assessment - shipping and receiving weigher: Respiratory Tract Infection Hx - shipping and receiving weigher Hx Respiratory Tract Infection No 02/11/25 15:32 STOP Sleep Apnea STOP Sleep Apnea - shipping and receiving weigher: STOP Sleep Apnea - shipping and receiving weigher Hx Hypertension Yes: CONTROLLED WITH MEDS 02/11/25 15:32 Hx Sleep Apnea No 02/11/25 15:32 CPAP No 05/04/20 08:52 BIPAP No 04/29/20 15:55 Do you snore loudly (louder No 02/11/25 15:32 than talking or can be heard Do you often feel tired/ No 02/11/25 15:32 fatigued/ sleepy during daytime? Has anyone observed you stop No 02/11/25 15:32 breathing during sleep? STOP Results Negative 02/11/25 15:32 QUESTION #5 FULL TEXT : Do you snore loudly (louder than talking or can be heard through closed doors)? 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 Specify any problems Hx of Preganancy in last 3 No 02/11/25 15:32 Months Nurse Filling Out Transfusion [email or web address] 02/11/25 15:32 & Questions: Date: 02/11/25 02/11/25 15:32 Time: 15:40 02/11/25 15:32 Patient unable to answer at this time (ie. confused, unrespo /Reproduction History /Reproductive History - shipping and receiving weigher: /Reproductive Hx- shipping and receiving weigher Hx Now No 02/11/25 15:32 Gestational Age (in weeks): EDC: Hx Hx Para Hx Section SAB No 02/11/25 15:32 Does the father of the baby or his family experience fever w Father of the baby Malignant Hypertension history comment [facility] Medical History (Updated 02/11/25 @ 15:49 by Mack Huang) Wears contact lenses Loss of hearing Wears dentures Wears glasses Cancer Anxiety Thyroid disease Arthritis Walker as ambulation aid Fatty liver Injury of head and neck Seizures Gastroparesis Gastric reflux Former smoker Shortness of breath on exertion Asthma Mitral valve prolapse History of echocardiogram History of stress test Cardiology follow-up encounter Depression High blood pressure COPD (chronic obstructive pulmonary disease) Emphysema lung Fibromyalgia Anxiety Acute sciatica Home Medications ?Medication ?Instructions ?Recorded ?Last Taken ?Type levothyroxine 75 mcg tablet 50 mcg PO DAILY THYROID DISEASE 01/08/15 05/04/20 History albuterol sulfate 90 mcg/actuation 1 puff inhalation PRN PRN Asthma 04/29/20 05/04/20 History aerosol inhaler cimetidine 200 mg tablet 200 mg PO DAILY GERD 04/29/20 05/04/20 History omeprazole 40 mg capsule,delayed 40 mg PO QDAY GERD 09/02/24 Unknown History release metoprolol succinate 25 mg 25 mg PO QDAY HTN 10/14/24 Unknown History tablet,extended release 24 hr L.acidophilus-B.animalis-B.longum 1 cap PO DAILY SUPPLEMENT 02/11/25 Unknown History 15 billion cell capsule (Florajen Digestion) baclofen 10 mg tablet 10 mg PO TID PRN muscle spasm 02/11/25 Unknown History fenofibrate nanocrystallized 48 mg 48 mg PO DAILY TRIGLYCERIDES 02/11/25 Unknown History tablet fluticasone furoate 200 1 inh inhalation DAILY ASTHMA 02/11/25 Unknown History mcg/actuation blister powder for inhalation (Arnuity Ellipta) hydroxyzine HCl 25 mg tablet 25 mg PO 4X/DAY ANXIETY 02/11/25 Unknown History magnesium oxide 250 mg PO DAILY SUPPLEMENT 02/11/25 Unknown History potassium chloride 20 mEq 20 meq PO BID PER DR 02/11/25 Unknown History tablet,extended release pregabalin 50 mg capsule 50 mg PO BID PAIN 02/11/25 Unknown History tramadol 50 mg tablet 50 mg PO 4X/DAY PRN pain 02/11/25 Unknown History umeclidinium 62.5 mcg-vilanterol 1 inh inhalation DAILY ASTHMA 02/11/25 Unknown History 25 mcg/actuation powdr for inhalation (Anoro Ellipta) Allergy/AdvReac Type Severity Reaction Status Date / Time amitriptyline HCl (From Allergy Nausea Verified 02/11/25 15:23 Elavil) aspirin (ASA) Allergy Nausea Verified 02/11/25 15:23 bacitracin (From Neosporin Allergy Rash Verified 02/11/25 15:23 ([id number])) bupropion HCl (From Allergy Other Verified 02/11/25 15:23 Wellbutrin) etodolac (From Lodine) Allergy Unknown Verified 02/11/25 15:23 ibuprofen Allergy Unknown Verified 02/11/25 15:23 neomycin (From Neosporin Allergy Rash Verified 02/11/25 15:23 ([id number]-[id number])) Penicillins (PCN) Allergy Hives Verified 02/11/25 15:23 poison librado extract Allergy Swelling Verified 02/11/25 15:23 poison oak extract Allergy Swelling Verified 02/11/25 15:23 polymyxin B (From Neosporin Allergy Rash Verified 02/11/25 15:23 ([id number])) rofecoxib (From Vioxx) Allergy Other Verified 02/11/25 15:23 varenicline (From Chantix) Allergy Rash Verified 02/11/25 15:23 venom-honey bee (bee venom Allergy Swelling Verified 02/11/25 15:23 (honey bee)) adhesive tape AdvReac NEEDS Verified 02/11/25 15:23 FOLLOW-UP gabapentin AdvReac Other Verified 02/11/25 15:23 hydrocodone (From Vicodin) AdvReac Nausea/Vom/ Verified 02/11/25 15:23 Diarrhea Surgical History (Updated 02/11/25 @ 15:49 by Mack Huang) Status post thyroid surgery History of cardiac catheterization History of ankle surgery History of placement of ear tubes History of reduction surgery of right breast Delivery by section Social History Smoking Status: Former smoker Audit: Pertinent Findings Pertinent Findings EKG Perinent findings: 03/04/2025. Normal sinus rhythm. ST and T wave abnormality, consider anterior ischemia. Current Visit Impressions Current Visit Impressions: Abnormal EKG. No prior EKGs to compare. Will have cardiology review prior to day of surgery. Recommendation Anesthesia Recommendation Anesthesia recommendation: F/U recommended
--- NOTE | 2025-03-05 12:00 | PAT.ANESEVAL ---
Pre-Assessment Diagnosis/Proposed Procedure Planned Operative Procedure(s): RIGHT TOTAL HIP ARTHROPLASTY Anesthesia History [facility]est[facility]: Anesthesia History - [facility] Hx Hospitalization No 02/11/25 15:32 Any Problems With Anesthesia No 02/11/25 15:32 Cholinesterase deficiency No 02/11/25 15:32 You/Your Family Experience No 02/11/25 15:32 fever (hyperthermia) with Relationship Recent Exposure to Contagious No 05/04/20 08:11 Disease Does patient have nerve No 02/11/25 15:32 stimulator Patient instructed to have device shut off --Does patient have Pacemaker or ICD? When Was Last Pacemaker Check QUESTION #4 FULL TEXT: You/Your Family Experience fever (hyperthermia) with Anesthesia Last Oral Intake Last Oral intake: Last Oral Intake NPO since Meds taken in AM with sips of water? Meds patient instructed to take am of surgery PONV PONV - [facility]: [facility] - [facility] Female Yes 02/11/25 15:32 HX of Motion Sickness No 02/11/25 15:32 HX of N/V After Surgery Yes 02/11/25 15:32 Non-Smoker Yes 02/11/25 15:32 Duration of Surgery greater Yes 02/11/25 15:32 than 60 minutes Number of Risk Factors 4 02/11/25 15:32 PONV Score Severe Risk 02/11/25 15:32 Height & Weight Height & Weight: Anesthesia: Height & Weight Height 5 ft 2 in 01/13/25 13:57 Respiratory Assessment Respiratory Assessment - [facility]: Respiratory Tract Infection Hx - [facility] Hx Respiratory Tract Infection No 02/11/25 15:32 STOP Sleep Apnea STOP Sleep Apnea - [facility]: STOP Sleep Apnea - [facility] Hx Hypertension Yes: CONTROLLED WITH MEDS 02/11/25 15:32 Hx Sleep Apnea No 02/11/25 15:32 CPAP No 05/04/20 08:52 BIPAP No 04/29/20 15:55 Do you snore loudly (louder No 02/11/25 15:32 than talking or can be heard Do you often feel tired/ No 02/11/25 15:32 fatigued/ sleepy during daytime? Has anyone observed you stop No 02/11/25 15:32 breathing during sleep? STOP Results Negative 02/11/25 15:32 QUESTION #5 FULL TEXT : Do you snore loudly (louder than talking or can be heard through closed doors)? 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 Specify any problems Hx of Preganancy in last 3 No 02/11/25 15:32 Months Nurse Filling Out Transfusion [email or web address] 02/11/25 15:32 & Questions: Date: 02/11/25 02/11/25 15:32 Time: 15:40 02/11/25 15:32 Patient unable to answer at this time (ie. confused, unrespo /Reproduction History /Reproductive [facility] - [facility]: /Reproductive Hx- [facility] Hx Now No 02/11/25 15:32 Gestational Age (in weeks): EDC: Hx Hx Para Hx Section SAB No 02/11/25 15:32 Does the father of the baby or his family experience fever w Father of the baby Malignant Hypertension history comment [facility] Medical History (Updated 02/11/25 @ 15:49 by Mack Huang) Wears contact lenses Loss of hearing Wears dentures Wears glasses Cancer Anxiety Thyroid disease Arthritis Walker as ambulation aid Fatty liver Injury of head and neck Seizures Gastroparesis Gastric reflux Former smoker Shortness of breath on exertion Asthma Mitral valve prolapse History of echocardiogram History of stress test Cardiology follow-up encounter Depression High blood pressure COPD (chronic obstructive pulmonary disease) Emphysema lung Fibromyalgia Anxiety Acute sciatica Home Medications ?Medication ?Instructions ?Recorded ?Last Taken ?Type levothyroxine 75 mcg tablet 50 mcg PO DAILY THYROID DISEASE 01/08/15 05/04/20 History albuterol sulfate 90 mcg/actuation 1 puff inhalation PRN PRN Asthma 04/29/20 05/04/20 History aerosol inhaler cimetidine 200 mg tablet 200 mg PO DAILY GERD 04/29/20 05/04/20 History omeprazole 40 mg capsule,delayed 40 mg PO QDAY GERD 09/02/24 Unknown History release metoprolol succinate 25 mg 25 mg PO QDAY HTN 10/14/24 Unknown History tablet,extended release 24 hr L.acidophilus-B.animalis-B.longum 1 cap PO DAILY SUPPLEMENT 02/11/25 Unknown History 15 billion cell capsule (Florajen Digestion) baclofen 10 mg tablet 10 mg PO TID PRN muscle spasm 02/11/25 Unknown History fenofibrate nanocrystallized 48 mg 48 mg PO DAILY TRIGLYCERIDES 02/11/25 Unknown History tablet fluticasone furoate 200 1 inh inhalation DAILY ASTHMA 02/11/25 Unknown History mcg/actuation blister powder for inhalation (Arnuity Ellipta) hydroxyzine HCl 25 mg tablet 25 mg PO 4X/DAY ANXIETY 02/11/25 Unknown History magnesium oxide 250 mg PO DAILY SUPPLEMENT 02/11/25 Unknown History potassium chloride 20 mEq 20 meq PO BID PER DR 02/11/25 Unknown History tablet,extended release pregabalin 50 mg capsule 50 mg PO BID PAIN 02/11/25 Unknown History tramadol 50 mg tablet 50 mg PO 4X/DAY PRN pain 02/11/25 Unknown History umeclidinium 62.5 mcg-vilanterol 1 inh inhalation DAILY ASTHMA 02/11/25 Unknown History 25 mcg/actuation powdr for inhalation (Anoro Ellipta) Allergy/AdvReac Type Severity Reaction Status Date / Time amitriptyline HCl (From Allergy Nausea Verified 02/11/25 15:23 Elavil) aspirin (ASA) Allergy Nausea Verified 02/11/25 15:23 bacitracin (From Neosporin Allergy Rash Verified 02/11/25 15:23 ([id number])) bupropion HCl (From Allergy Other Verified 02/11/25 15:23 Wellbutrin) etodolac (From Lodine) Allergy Unknown Verified 02/11/25 15:23 ibuprofen Allergy Unknown Verified 02/11/25 15:23 neomycin (From Neosporin Allergy Rash Verified 02/11/25 15:23 ([id number])) Penicillins (PCN) Allergy Hives Verified 02/11/25 15:23 poison librado extract Allergy Swelling Verified 02/11/25 15:23 poison oak extract Allergy Swelling Verified 02/11/25 15:23 polymyxin B (From Neosporin Allergy Rash Verified 02/11/25 15:23 ([id number])) rofecoxib (From Vioxx) Allergy Other Verified 02/11/25 15:23 varenicline (From Chantix) Allergy Rash Verified 02/11/25 15:23 venom-honey bee (bee venom Allergy Swelling Verified 02/11/25 15:23 (honey bee)) adhesive tape AdvReac NEEDS Verified 02/11/25 15:23 FOLLOW-UP gabapentin AdvReac Other Verified 02/11/25 15:23 hydrocodone (From Vicodin) AdvReac Nausea/Vom/ Verified 02/11/25 15:23 Diarrhea Surgical History (Updated 02/11/25 @ 15:49 by Mack Huang) Status post thyroid surgery History of cardiac catheterization History of ankle surgery History of placement of ear tubes History of reduction surgery of right breast Delivery by section Social History Smoking Status: Former smoker Audit: Pertinent Findings HISTORY of Pertinent Findings History of Pertinent Findings: EKG Pertinent Findings EKG Perinent findings 03/04/2025. Normal sinus 03/05/25 09:[address] and T wave abnormality, consider anterior ischemia. Pertinent Findings Consult pertinent findings: Discussed abnormal EKG with both Dr. Corley and Dr. rodriguez today, they also reviewed EKGs. Both stated that they did not think further cardiac evaluation was warranted. Recommendation Anesthesia Recommendation Anesthesia recommendation: OPTIMIZED for anesthesia
[2025-03-08 10:08] LABS: Cotinine Screen Blood 9.8 ng/mL (.)
[2025-03-11] VITALS (17 sets, daily range): BP systolic 99–144; BP diastolic 56–93; PULSE 68–88; RESP 16–20; TEMP 36.1–36.6; O2SAT 93–100; BMI 32.7
[2025-03-11] MEDS: Scopolamine 1mg/72hr Patch 1 PATCH TD (09:36)
[2025-03-11] MEDS: LR 1,000 ML - BOLUS PREOP 100 ML IV ×2 (09:36→10:37)
[2025-03-11] MEDS: Vancomycin HCl 1,250 MG in 0.9% Normal Saline (250mL Bag) 250 ML 167 MG IV (09:38)
[2025-03-11] MEDS: Magnesium 2 GM for ERAS IV (09:38)
--- NOTE | 2025-03-11 10:11 | PCM.PRE.AN2 ---
ASA Classification* ASA Classification ASA Classification: 2 Assessment & Plan Anesthesia* Anesthesia Assessment Anesthesia Assessment: Discussed sedation and/or anesthesia options, risks, benefits, and alternatives with patient/parents/legal guardian/POA. Questions invited. The patient/parents/legal guardian/POA seems to understand and agrees to proceed with anesthesia plan. Reviewed the physical assessment, medical history, allergy history and patient home medications list prior to surgery/procedure/anesthetic and documented any changes. Performed airway and anesthesia risk assessments. Anesthesia Type Anesthesia Type: General, MAC and Spinal History Source History Obtained from:: Patient and Chart Anesthesia Focused Assessment* Temperature: 97 F Pulse Rate: 68 Blood Pressure: 136/93 Respiratory Rate: 16 Pulse Ox: 97 Oxygen Delivery Method: Room Air Airway Assessment Mouth opens: >3 cm Mallampati Score: II Teeth Condition: Dentures (Edentulous) Neck Range of motion (ROM): Limited ROM Labs Anesthesia Preop lab: CBC WBC, (4.4-11.0) 4.1 K/mm3 L 03/04/25, 10:13 RBC, (4.2-5.4) 4.25 M/mm3 03/04/25, 10:13 Hgb, (12.0-15.0) 12.3 g/dL 03/04/25, 10:13 Hct, (37-47) 38.5 % 03/04/25, 10:13 Plt Count, (150-450) 204 K/mm3 03/04/25, 10:13 CHEMISTRY Potassium, (3.3-5.1) 4.6 mmol/L 03/04/25, 10:13 Sodium, (133-145) 139 mmol/L 03/04/25, 10:13 Magnesium, (1.5-2.2) 1.8 mg/dL 02/12/25, 16:16 BUN, (4-19) 23 mg/dL H 03/04/25, 10:13 Creatinine, (0.70-1.20) 0.82 mg/dL 03/04/25, 10:13 Glucose, (70-99) 103 mg/dL H 03/04/25, 10:13 POC Glucose, (74-106) 109 mg/dL H Today, 09:21 TSH, (0.300-4.200) 1.400 uIU/mL 02/12/25, 16:16 COAG PT, (11.7-14.9) 13.1 SECONDS 03/04/25, 10:13 Pre-Assessment Diagnosis/Proposed Procedure Planned Operative Procedure(s): RIGHT TOTAL HIP ARTHROPLASTY Anesthesia History Anesthesia History - director of publications: Anesthesia History - director of publications Hx Hospitalization No 02/11/25 15:32 Any Problems With Anesthesia No 02/11/25 15:32 Cholinesterase deficiency No 02/11/25 15:32 You/Your Family Experience No 02/11/25 15:32 fever (hyperthermia) with Relationship Recent Exposure to Contagious No 03/11/25 09:13 Disease Does patient have nerve No 02/11/25 15:32 stimulator Patient instructed to have device shut off --Does patient have Pacemaker No 03/11/25 09:13 or ICD? When Was Last Pacemaker Check QUESTION #4 FULL TEXT: You/Your Family Experience fever (hyperthermia) with Anesthesia Last Oral Intake Last Oral intake: Last Oral Intake NPO since 05:45 03/11/25 09:13 Meds taken in AM with sips of Yes 03/11/25 09:13 water? Meds patient instructed to take am of surgery PONV PONV - director of publications: PONV - director of publications Female Yes 02/11/25 15:32 HX of Motion Sickness No 02/11/25 15:32 HX of N/V After Surgery Yes 02/11/25 15:32 Non-Smoker Yes 02/11/25 15:32 Duration of Surgery greater Yes 02/11/25 15:32 than 60 minutes Number of Risk Factors 4 02/11/25 15:32 PONV Score Severe Risk 02/11/25 15:32 Height & Weight Height & Weight: Anesthesia: Height & Weight Height 5 ft 2 in 03/11/25 09:13 Weight: 81.193 kg 03/11/25 09:13 Body Mass Index (BMI) 32.7 03/11/25 09:13 Respiratory Assessment Respiratory Assessment - director of publications: Respiratory Tract Infection Hx - director of publications Hx Respiratory Tract Infection No 02/11/25 15:32 STOP Sleep Apnea STOP Sleep Apnea - director of publications: STOP Sleep Apnea - director of publications Hx Hypertension Yes: CONTROLLED WITH MEDS 02/11/25 15:32 Hx Sleep Apnea No 02/11/25 15:32 CPAP No 05/04/20 08:52 BIPAP No 04/29/20 15:55 Do you snore loudly (louder No 02/11/25 15:32 than talking or can be heard Do you often feel tired/ No 02/11/25 15:32 fatigued/ sleepy during daytime? Has anyone observed you stop No 02/11/25 15:32 breathing during sleep? STOP Results Negative 02/11/25 15:32 QUESTION #5 FULL TEXT : Do you snore loudly (louder than talking or can be heard through closed doors)? 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 Specify any problems Hx of Preganancy in last 3 No 02/11/25 15:32 Months Nurse Filling Out Transfusion [email or web address] 02/11/25 15:32 & Questions: Date: 02/11/25 02/11/25 15:32 Time: 15:40 02/11/25 15:32 Patient unable to answer at this time (ie. confused, unrespo /Reproduction History /Reproductive History - director of publications: /Reproductive Hx- director of publications Hx Now No 02/11/25 15:32 Gestational Age (in weeks): EDC: Hx Hx Para Hx Section SAB No 02/11/25 15:32 Does the father of the baby or his family experience fever w Father of the baby Malignant Hypertension history comment Active Medications Active Medications: Current Medications Generic Name Dose Route Start Last Admin Trade Name Freq PRN Reason Stop Dose Admin Acetaminophen 1,000 mg 03/11/25 11:45 03/11/25 09:36 Acetaminophen 500 Mg Tablet PO 03/11/25 11:46 1,000 mg PREOP ONE Administration Celecoxib 400 mg 03/11/25 11:45 03/11/25 09:37 Celecoxib 200 Mg Capsule PO 03/11/25 11:46 400 mg PREOP ONE Administration Dexamethasone Sodium Phosphate 10 mg 03/11/25 11:45 Dexamethasone 10 Mg/Ml Vial IV 03/11/25 11:46 INTRAOP ONE Gabapentin 600 mg 03/11/25 11:45 03/11/25 09:36 Gabapentin 600 Mg Tablet PO 03/11/25 11:46 600 mg PREOP ONE Administration Magnesium Sulfate 2 gm/ 104 mls @ 208 mls/hr 03/11/25 11:45 03/11/25 09:38 Dextrose IV 03/11/25 12:14 208 mls/hr PREOP ONE Administration Lactated Ringer's 1,000 mls @ 100 mls/hr 03/11/25 11:45 03/11/25 09:36 IV 03/11/25 21:44 100 mls/hr .Q10H GABI Administration Vancomycin HCl 1,250 mg/ 275 mls @ 167 mls/hr 03/11/25 11:45 03/11/25 09:38 Sodium Chloride IV 03/11/25 13:23 167 mls/hr PREOP ONE Administration Tranexamic Acid 2,000 mg/ 120 mls @ 660 mls/hr 03/11/25 11:45 Sodium Chloride IV 03/11/25 11:55 INTRAOP ONE Lactated Ringer's 1,000 mls @ 125 mls/hr 03/11/25 11:45 IV 03/11/25 19:44 .Q8H GABI Insulin Human Lispro 1 - 6 unit 03/11/25 11:45 Insulin Lispro 100 Unit/Ml Insuln.Pen SC Q4H PRN PRN BG>/= 180, SEE PROTOCOL Protocol Scopolamine HBr 1 patch 03/11/25 11:45 03/11/25 09:36 Scopolamine 1mg/72hr Patch TD 03/11/25 11:46 1 patch PREOP ONE Administration PFSH Medical History Wears contact lenses Loss of hearing Wears dentures Wears glasses Cancer Anxiety Thyroid disease Arthritis Walker as ambulation aid Fatty liver Injury of head and neck Seizures Gastroparesis Gastric reflux Former smoker Shortness of breath on exertion Asthma Mitral valve prolapse History of echocardiogram History of stress test Cardiology follow-up encounter Depression High blood pressure COPD (chronic obstructive pulmonary disease) Emphysema lung Fibromyalgia Anxiety Acute sciatica Home Medications ?Medication ?Instructions ?Recorded ?Last Taken ?Type levothyroxine 75 mcg tablet 50 mcg PO DAILY THYROID DISEASE 01/08/15 03/11/25 05:45 History albuterol sulfate 90 mcg/actuation 1 puff inhalation PRN PRN Asthma 04/29/20 05/04/20 History aerosol inhaler cimetidine 200 mg tablet 200 mg PO DAILY GERD 04/29/20 05/04/20 History omeprazole 40 mg capsule,delayed 40 mg PO QDAY GERD 09/02/24 03/11/25 05:45 History release metoprolol succinate 25 mg 25 mg PO QDAY HTN 10/14/24 03/11/25 05:45 History tablet,extended release 24 hr L.acidophilus-B.animalis-B.longum 1 cap PO DAILY SUPPLEMENT 02/11/25 Unknown History 15 billion cell capsule (Florajen Digestion) baclofen 10 mg tablet 10 mg PO TID PRN muscle spasm 02/11/25 Unknown History fenofibrate nanocrystallized 48 mg 48 mg PO DAILY TRIGLYCERIDES 02/11/25 03/11/25 05:45 History tablet fluticasone furoate 200 1 inh inhalation DAILY ASTHMA 02/11/25 03/11/25 05:45 History mcg/actuation blister powder for inhalation (Arnuity Ellipta) hydroxyzine HCl 25 mg tablet 25 mg PO 4X/DAY ANXIETY 02/11/25 03/11/25 05:45 History magnesium oxide 250 mg PO DAILY SUPPLEMENT 02/11/25 Unknown History potassium chloride 20 mEq 20 meq PO BID PER DR 02/11/25 03/11/25 05:45 History tablet,extended release pregabalin 50 mg capsule 50 mg PO BID PAIN 02/11/25 Unknown History tramadol 50 mg tablet 50 mg PO 4X/DAY PRN pain 02/11/25 03/11/25 05:45 History umeclidinium 62.5 mcg-vilanterol 1 inh inhalation DAILY ASTHMA 02/11/25 03/11/25 05:45 History 25 mcg/actuation powdr for inhalation (Anoro Ellipta) Allergy/AdvReac Type Severity Reaction Status Date / Time amitriptyline HCl (From Allergy Nausea Verified 03/11/25 09:09 Elavil) aspirin (ASA) Allergy Nausea Verified 03/11/25 09:09 bacitracin (From Neosporin Allergy Rash Verified 03/11/25 09:09 ([id number])) bupropion HCl (From Allergy Other Verified 03/11/25 09:09 Wellbutrin) etodolac (From Lodine) Allergy Unknown Verified 03/11/25 09:09 ibuprofen Allergy Unknown Verified 03/11/25 09:09 neomycin (From Neosporin Allergy Rash Verified 03/11/25 09:09 ([id number])) Penicillins (PCN) Allergy Hives Verified 03/11/25 09:09 poison librado extract Allergy Swelling Verified 03/11/25 09:09 poison oak extract Allergy Swelling Verified 03/11/25 09:09 polymyxin B (From Neosporin Allergy Rash Verified 03/11/25 09:09 ([id number])) rofecoxib (From Vioxx) Allergy Other Verified 03/11/25 09:09 varenicline (From Chantix) Allergy Rash Verified 03/11/25 09:09 venom-honey bee (bee venom Allergy Swelling Verified 03/11/25 09:09 (honey bee)) adhesive tape AdvReac NEEDS Verified 03/11/25 09:09 FOLLOW-UP gabapentin AdvReac Other Verified 03/11/25 09:09 hydrocodone (From Vicodin) AdvReac Nausea/Vom/ Verified 03/11/25 09:09 Diarrhea Surgical History Status post thyroid surgery History of cardiac catheterization History of ankle surgery History of placement of ear tubes History of reduction surgery of right breast Delivery by section Social History Smoking Status: Former smoker Review of Systems (Anesthesia) ROS Narrative System reviewed and no additional complaints, except as documented.
--- NOTE | 2025-03-11 10:21 | HP.PCM_ITS ---
History and Physical Date of Admission: 03/11/25 [facility] [address] [place] [address] OFFICE VISIT Date of Service: 01/13/25 MR#: [id number] Acct: [id number] Name: PETRA STEWART Rep #: [id number] : 1965 Provider: Dr. Tyler Wang, DO Age/Sex: 59/F Location: [facility] [place] Status: Signed Intake Vital Signs 01/06/2513:48 01/13/2513:57 Height 5 ft 2 in 5 ft 2 in Weight: 172 lb 175 lb BMI 31.4 32.0 Intake Visit Reasons: RIGHT HIP Chief Complaint: Right hip pain Accompanied by: Significant Other Is patient in pain?: Yes (right hip ) Pain scale (1-10): 9 Allergies amitriptyline HCl (From Elavil) Allergy (Verified 01/13/25 13:56) Nausea aspirin (ASA) Allergy (Verified 01/13/25 13:56) Nausea bacitracin (From Neosporin ([id number]-can-fvxee)) Allergy (Verified 01/13/25 13:56) Rash bupropion HCl (From Wellbutrin) Allergy (Verified 01/13/25 13:56) Other etodolac (From Lodine) Allergy (Verified 01/13/25 13:56) Unknown ibuprofen Allergy (Verified 01/13/25 13:56) Unknown neomycin (From Neosporin (bdt-rui-rqyoi)) Allergy (Verified 01/13/25 13:56) Rash Penicillins (PCN) Allergy (Verified 01/13/25 13:56) Hives poison librado extract Allergy (Verified 01/13/25 13:56) Swelling poison oak extract Allergy (Verified 01/13/25 13:56) Swelling polymyxin B (From Neosporin (ttp-ney-wjzyi)) Allergy (Verified 01/13/25 13:56) Rash rofecoxib (From Vioxx) Allergy (Verified 01/13/25 13:56) Other varenicline (From Chantix) Allergy (Verified 01/13/25 13:56) Rash venom-honey bee (bee venom (honey bee)) Allergy (Verified 01/13/25 13:56) Swelling acetaminophen (From Vicodin) Adverse Reaction (Verified 01/13/25 13:56) Nausea/Vom/Diarrhea adhesive tape Adverse Reaction (Verified 01/13/25 13:56) NEEDS FOLLOW-UP gabapentin Adverse Reaction (Verified 01/13/25 13:56) Other hydrocodone (From Vicodin) Adverse Reaction (Verified 01/13/25 13:56) Nausea/Vom/Diarrhea Medications ?Medication ?Instructions ?Recorded ?Confirmed ?Type levothyroxine 75 mcg tablet 50 mcg PO DAILY 01/08/15 01/13/25 Histor y albuterol sulfate 90 mcg/actuation 1 puff inhalation PRN PRN Asthma 1 01/13/25 History aerosol inhaler cimetidine 200 mg tablet 200 mg PO DAILY 04/29/20 01/13/25 Histor y mometasone-formoterol HFA 100 100 mcg inhalation PRN PRN Asthma 01/13/25 History mcg-5 mcg/actuation aerosol inhaler omeprazole 40 mg capsule,delayed 40 mg PO QDAY 09/02/24 01/13/25 History release metoprolol succinate 25 mg 25 mg PO QDAY 10/14/24 01/13/25 History tablet,extended release 24 hr Have you fallen in the past year?: No PFSH Medical History Depression Acute sciatica Anxiety Fibromyalgia Emphysema lung COPD (chronic obstructive pulmonary disease) High blood pressure Surgical History History of ankle surgery History of placement of ear tubes History of reduction surgery of right breast Delivery by section Social History Smoking Status: Former smoker HPI RIGHT HIP Details: This documentation accurately reflects the service provided and the decisions made by me, Dr. Tyler Wang, DO 01/13/25921. Part of today?s visit was documented by [ ], acting as scribe. PETRA STEWART is a 59 year old F new to me previously seen by Maile Coughlin medical history significant for not limited to tobacco abuse admits to sharing 5 cigarettes a day with her boyfriend, lumbar radiculopathy affecting right lower extremity here today for right hip pain patient is treating pain with 500mg tylenol every 4-6 hours, pain is described as deep, stabbing, aching. traveling down to the knee. She denies any numbness or tingling into her right hip. She did aquatic therapy which she wasnt able to do due to her pain. She takes gabapentin, tramadol, muscle relaxer and tylenol. She is unable to take NSAIDs due to nausea and vomiting. She denies any prior back surgery or back injury. She uses a rollator to ambulate because of the hip pain. She has had injections into her right hip with the most recent being a greater than 3 months ago. 01/06/2025 visit with Maile Coughlin:59 year old F here today for right hip MRI review. She states that she would like to go over the MRI results to discuss what the next step would be. She states that she did some physical therapy at [facility] back in December. Patient states that it was water therapy. She states that she, couldn't handle it. No noted improvement after PT. hip pain worse than last visit with locking. No new injury or falls. Back sx about the same, agg with standing, walking and aggravates R hip pain, Numbness to L thigh x 2 yrs (not previously mentioned), no improvement with injections. Denies loss of bowel or bladder control, saddle anesthesia or progressive paresthesias. Last cortisone injection hip about 1 yr ago, ablation to back July 2024 Hx osteopenia, unsure of when testing was completed and reports no recommended supplementation or medications at that time. Accompanied by mother and brother for today's visit who contribute to HPI and ongoing symptoms. Also inquiring about bilateral hand numbness and dropping things. Plan:We reviewed and discussed MRI findings and recommend dedicated visit with Dr. Wang to discuss interventions Symptom control with previously prescribed meds per pain management including the baclofen, tramadol and pregabalin, OTC Tylenol per package directions. I am also recommending a copy of MRI report to her pain management doctor, Dr. Damon to determine sx control options. Recommended use of heat and topical pain relief per package directions. F/U Dr. Wang Patient in agreement with plan of care This document has been transcribed using [employer] dictation software. There may be incorrect words, spelling, and punctuation. Non smoker, not diabetic (2) DJD (degenerative joint disease), lumbar: Status: Acute Qualifiers: Spinal osteoarthritis complication: with radiculopathy Qualified Code(s): M47.26 - Other spondylosis with radiculopathy, lumbar region Plan: Reviewed MRI of the lumbar spine results during today's visit. Images were collaborated with Dr. Boone with recommended treatment option. Recommend follow-up with ornamental painter, Dr. Damon, with copy of MRI results to determine if cortisone injection provides pain relief, and/or improves paresthesia symptoms to the left anterior thigh. Due to the right hip causing the most distressing disability, it is recommended that she pursues treatment options sooner rather than later on her hip. If symptoms continue to the left thigh, worsen or new symptoms develop, contact the office directly to schedule with either Dr. Boone or YASMANY Leon Reviewed red flag symptoms for urgent ED evaluation including loss of bowel or bladder control, saddle anesthesia, progressive and sudden paresthesias, weakness or other concerns. Patient Instructions: Regarding newly reported bilateral hand symptoms of tingling and dropping things, patient has been advised to start with PCP for further evaluation to determine if best managed by orthopedics or neurology. Ortho Exam General General: Yes no acute distress Neurologic: Yes alert and Yes oriented x3 Psychologic: Yes reasonable and appropriate Right Hip Skin: Yes CDI, No Ecchymosis, No soft tissue swelling and No Erythema internal rotation @90 degree flexion: 10 degrees external rotation @90 degree extension: 30 degrees Special Tests: No iliopsoas snap, No TTP Greater Troch, No RROM flexion pain, Yes C sign, Yes FADIR and Yes FADER HIP: no edema. significant pain with IR and ER; almost out of proportion. Significant pain with attempting to rise from a chair Head: Normocephalic Atraumatic Chest: symmetrical rise, non-labored breathing, no audible wheeze Abdomen: no guarding, non-rigid Supplemental Info 01/01/2025 MRI right hip: Avascular necrosis of the right femoral head without co llapse. Advanced osteoarthritic changes of the right hip. No loose body. Small right joint effusion. Mild degenerative changes of the left hip. No acute fracture. 01/01/2025 MRI lumbar spine: multilevel degenerative disc disease mild stenosis L4-L5 multilevel facet arthropathy 09/02/2024 x-ray right hip: Advanced hip arthrosis joint space narrowing subchondral cystic changes of both femoral head and acetabulum Coding Level of Care Code Off vis,est,level 4 Diagnoses Primary osteoarthritis of right hip M16.11 Osteoarthritis type: primary Tobacco abuse Z72.0 Assessment and Plan Assessment and Plan (1) Osteoarthritis of right hip: Status: Acute Qualifiers: Osteoarthritis type: primary Qualified Code(s): M16.11 - Unilateral primary osteoarthritis, right hip (2) Tobacco abuse: Status: Chronic Plan Patient has significant arthritis of her right hip and is causing her groin pain. Explained her options- physical therapy, weight loss, total hip arthroplasty. Patient does not have any collapse of her femoral head from the AVN that was found on a recent MRI. Spoke with the patient about the surgery pr ocedure, recovery. Patient needs to stop smoking for 6 weeks preop as it increases risk of infections and she will be nicotine tested 3 weeks and 1 week prior to surgery. She should also not smoke for 6 weeks post op. She will be on blood thinners post op for 3 weeks. She will be doing formal physical therapy following her surgery. Spoke with her about having 6 weeks of total hip precautions, then for the next 6 weeks she should do any lifting off the ground. She will be full weightbearing with a walker. Risks, benefits and alternatives of surgery reviewed including but not limited to bleeding, infection, nerve, foot drop, artery and/or tissue damage, fracture, VTE, leg length discrepancy, dislocation, need for hip precautions, continued pain and expected post- operative course. She will need a CT scan for templating. Explained she will have a press fit total hip arthroplasty. She will need a medical clearance, cardiology, pulmonary from her PCP. She is ready to stop smoking and we will schedule her surgery. Due to her medical comorbidities, we will schedule her as inpatient. Will also need medical clearance and CT scan for MAKOplasty. She states she is ready to quit smoking today. Follow up for 2 week post op or sooner if pain, swelling, numbness or associated symptoms, or concerns develop. All questions answered. Patient in agreement of plan. Clinical Quality Measures Falls Risk Screening/Assistive Devices Have you fallen in the past year?: No 01/14/25 0736 <Electronically signed by Tyler Wang DO> Date Tyler Wang DO I have examined the patient and the H&P has been reviewed. There are no clinical changes since date of exam.
--- NOTE | 2025-03-11 10:45 | HIP_PTH ---
PATIENT: PETRA STEWART LOC: MS3 U#:[id number] AGE/SX: 59/F ROOM: [facility] [place] RE03/11/[address]: Dr. Tyler Wang DO : 1965 BED: 1 DIS: 03/13/2025 SPEC #: [id number] RECD: 03/11/25 15:03 STATUS: SADAF REMichelle #: [id number] DEANNA: 03/11/25 10:[address]: Tylre Wang DEPT: SURGICAL PATHOLOGY RECD BY: Yuniel Martini ENTERED: 03/12/25 10:31 SP TYPE: TOTAL HIP OTHR DR: Christa Iverson, EMILY Tissues: A - Hip, NOS Procedures: Decalcification bone/plaque Surgery Specimen Level III HEADER OPERATION: ERAS, right total hip replacement robotic arm assisted PRE-OP DIAGNOSIS: Osteoarthritis of right hip, tobacco abuse TISSUE SUBMITTED: A- Bone and soft tissue - right hip MICROSCOPIC DIAGNOSIS A. Right hip, total hip arthroplasty: - Articular bone with osteoarthritic reactive and degenerative changes. - Patchy trilineage hematopoiesis. MICROSCOPIC DESCRIPTION Slides are reviewed. GROSS DESCRIPTION A. Received in formalin labeled with the patient's name and date of . Designated as bone and soft tissue-right hip is an 8.3 x 7.9 x 1.5 cm aggregate of irregular bone and soft tissue fragments, along with a 4.6 x 4.6 x 3.8 cm slightly irregular, ovoid femoral head, with a portion of attached femoral neck 1.5 cm in length by 2.0 cm in diameter. The articular cartilage is good to erythematous, granular and eburnated, with mild to moderate peripheral osteophyte formation. Sectioning reveals good-yellow to red trabeculated medullary bone. First Aid Director sections are submitted in 2 cassettes, following decalcification as follows:A1: Femoral headA2: Femoral neck MS 03/12/2025 CPT:66582,27206
[2025-03-11] MEDS: Midazolam 2 MG/2 ML Syringe IV (10:55)
[2025-03-11] MEDS: TRANEXAMIC ACID 1,000 MG/10 ML ML 2000 MG IV (11:15)
[2025-03-11] MEDS: fentaNYL 100 MCG/2 ML Ampul IV (11:28)
[2025-03-11] MEDS: Lactated Ringers 2,000 ML 2000 ML IV (11:55)
--- NOTE | 2025-03-11 13:30 | OP.PCM_ITS ---
Operative Report (Standard) Operative Information Date of Procedure: 03/11/25 Pre-Operative Diagnosis: Right hip DJD AVN Post-Operative Diagnosis: Same Surgery/Procedure Performed: Right total hip arthroplasty neurophysiological technician: Yes 911 Emergency Dispatcher: Daryn Murray Tasks completed by certified first assistant: Opening & closing and Implanting device Type of Anesthesia: Spinal RN Documented Start/Stop Times: Operation Date: 03/11/25 10:45 Case Time Into Pre-Op 03/11/25 08:47 Anesthesia Start 03/11/25 11:08 Into Room 03/11/25 11:08 Procedure Start 03/11/25 11:35 Procedure End 03/11/25 13:25 Procedure Start Time: 11:35 Procedure Stop Time: 13:35 Select all DRAINS/GRAFTS/IMPLANTS that apply: Implanted device Implanted device details: Elzbieta Estimated Blood Loss: 175 Specimen collected: Yes Description of specimen(s) removed: Femoral head Description of surgery: Preoperative diagnosis: Right hip DJD Postoperative diagnosis: Same Procedure: CT-guided Makoplasty assisted right total hip arthroplasty Implants: [employer] [place] Accolade II stem size 2, 127 degree neck angle +4 head neck length 48 mm Trident II acetabular shell with 40 mm cancellous screw 32 mm ceramic head, lateralized Trident X3 polyethylene insert. Anesthesia: Spinal EBL: 175 cc Complications: None Condition: Stable to PACU Telecommunication Lines Repairer Daryn Murray. My physician business development assistant was a vital part of this case. He was important in appropriate retraction during the case, and protection of soft tissues during procedure. His intimate knowledge of the case and my steps aided in safe and expedient completion of the procedure as well as appropriate position of the extremity during the case. He was also vital in assisting with closure under my direct supervision. Indication for procedure: This is a 59-year-old female who has had long-standing arthrosis of the hip who has failed conservative treatment and wished to undergo total hip arthroplasty. We did discuss operative versus nonoperative intervention including risks of bleeding, infection , nerve artery tissue damage, need for further surgery, fracture, leg length discrepancy dislocation blood clot and need for postoperative physical therapy and postoperative expectations. An informed consent was signed. Procedure: Patient was met in the preoperative holding area once again the operative extremity was identified by both patient and physician and was marked. Patient was met by anesthesia . Anesthesia was started. patient was then positioned in the lateral decubitus position on a well-padded pegboard with an axillary roll. All bony prominences were checked and padded. The patient was prepped and draped in the usual sterile fashion. A timeout was called to ensure the proper patient procedure and extremity were being contemplated. Anatomic landmarks were palpated and marked for a standard posterior lateral approach. Prior to this the ASIS was palpated and 3 fingerbreadths proximal to this 3 pins were placed at a 45 degree angle into the iliac crest with good purchase, stab incisions were made with a 15 blade into the skin prior to placement. The Makoplasty array was then secured. A 10 blade scalpel was used to make a posterior incision through the skin and subcutaneous tissue. retractors were used and electrocautery was used to maintain meticulous hemostasis and dissect full-thickness flaps until the gluteal fascia was reached. The gluteal fascia was incised in line with the gluteal fibers. The bursal tissue was then freed from the underside and a Charnley retractor was placed. The femoral trochanteric checkpoint was placed and leg length was assessed using the trochanteric checkpoint and an EKG lead that was placed on the knee prior to prepping the leg .the fat pad was then elevated off of the external rotators with electrocautery and the external rotators were dissected off of the greater trochanter including the piriformis and were tagged with #1 Ethibond for later repair. The joint capsule opened with posterior trapdoor technique. The hip was surgically dislocated. The measurement on the preoperative CT from the top of the lesser trochanter to the femoral neck cut was marked Hohmann was placed around the lesser trochanter. A neck cutting guide was used to cinda the neck with a Bovie and an oscillating saw was used complete the femoral neck cut. The femoral head was then removed and sized. We then turned our attention to the acetabulum. A Bovie was used to make a perforation in the anterior joint capsule and a Michaels retractor was placed this was repeated in the 6 o'clock position and a wide devon was placed there. With a long handled knife the labral and pulvinar tissue were removed. We then registered the acetabulum with the pointing array and confirmed our landmarks. Once the socket was thoroughly prepared and labral tissue and pulvinar was removed we single reamed with the robotic arm. We then used the robotic arm to position the acetabular implant and impacted it into place under robotic guidance. We then proceeded to place a posterior superior screw by drilling first measuring and inserting the screw. We then inserted a trial liner. And turned our attention back to the femur at this point a femoral elevator was used. As well as a pointed wide Hohmann around the lesser trochanter and a Hohmann to help retract the gluteus medius. A box chisel was used to remove excess lateral neck followed by a canal finder and a lateralizing reamer. This was followed by sequential broaches. Attention was made of the version within the canal based on preoperative templating. Once the final broach was seated we then trialed reduced the hip it was determined that a 127 degree neck angle with a +4 neck length was the appropriate size. We then checked stability with shuck testing as well as flexion and internal rotation. then proceeded with hip extension and checked leg lengths at the knees and heels as well as with the trochanteric checkpoint and knee EKG lead. At this point trials were removed. A liner was inserted to the cup. The femoral stem was inserted. We re-trialed and then proceeded to impact the f emoral head onto the Myron taper. We then surgically reduce the hip check stability again and leg lengths and were satisfied. Betadine rinse was allowed to sit for 5 minutes while everyone changed their gloves. Thorough irrigation was performed. Followed by closure of the external rotators with #2 FiberWire followed by closure of gluteal fascia with #1 Ethibond. 0 Vicryl fat stitches and 2-0 Vicryl subcutaneous stitches and fanny in the skin. Fanny were placed in the skin pin sites over the iliac crest and dressed with a Mepilex dressing. The main incision was dressed with a Mepilex ag dressing and an abduction pillow was placed. Patient tolerated the procedure well there was no intraoperative complications all counts were correct and the patient was brought back to the PACU in stable condition Surgical Findings: DJD hip Complications Complications: No
--- NOTE | 2025-03-11 13:42 | PCM.POST.ANE ---
Anesthesia: Postop Eval I Current Vital Signs Temperature: 97.0 F Pulse Rate: 85 Blood Pressure: 121/72 Respiratory Rate: 20 Pulse Ox: 98 Oxygen Delivery Method: Room Air Assessment Airway patent: Yes Spontaneous unlabored respirations: Yes Mental status: Awake and Calm nausea: No Vomiting: No Anesthesia Complication: No Fluid Hydration Crystalloid volume administer (ml): 1,700 Total IV fluid infused: 1,700 Progress Note Anesthesia document: Postop Eval 1 completed: Yes
--- NOTE | 2025-03-11 13:45 | RAD_ITS ---
PROCEDURE: HIP MIN 2 VIEWS (PORTABLE) 03/11/2025 REASON FOR EXAM: POST OP TECHNIQUE: Procedure Code: RADH_P Modality: DX Procedure: HIP MIN 2 VIEWS (PORTABLE) Frontal view of the pelvis with frogleg view of the right hip COMPARISON: September 02, 2024 FINDINGS: There is a total hip prosthesis in position. Pelvic bones appear intact. There is soft tissue air with overlying flaco consistent with recent surgery. RAD/Hip Min 2 Views (Portable) IMPRESSION: Hardware in position. Reading Location: [facility]
--- NOTE | 2025-03-11 15:36 | POSTOPAN2_ITS ---
Anesthesia Postop Eval I Sum Postop Eval Completion status Anesthesia document: Postop Eval 1 completed: Yes Anesthesia Postop Eval I Summary Anesthesia Postop Eval I Summary: Anesthesia Postop Eval I: Assessment Summary Airway patent Yes 03/11/25 13:43 [email or web address] Spontaneous unlabored Yes 03/11/25 13:43 [email or web address] respirations Mental status Awake,Calm 03/11/25 13:43 [email or web address] nausea No 03/11/25 13:43 [email or web address] Vomiting No 03/11/25 13:43 [email or web address] Anesthesia Postop Eval I: Fluid Summary Crystalloid volume administer 1,700 03/11/25 13:43 [email or web address] (ml) Colloids volume administered ( ml) Blood Product volume administered (ml) Total IV fluid infused 1,700 03/11/25 13:43 [email or web address] Anesthesia Postop Eval I: Summary Notes Anesthesia Complication No 03/11/25 13:43 [email or web address] Anesthesia Complication Comment: Post-operative progress note Anesthesia: Postop Eval II Evaluation Mental status: Awake and Calm Pain Level: 1 nausea: No Vomiting: No Complications Anesthesia Complication: No
--- NOTE | 2025-03-11 15:36 | PCM.POSTANE2 ---
Anesthesia Postop Eval I Sum Postop Eval Completion status Anesthesia document: Postop Eval 1 completed: Yes Anesthesia Postop Eval I Summary Anesthesia Postop Eval I Summary: Anesthesia Postop Eval I: Assessment Summary Airway patent Yes 03/11/25 13:43 AEROSPACE CONTROL [employer] WARNING [email or web address] Spontaneous unlabored Yes 03/11/25 13:43 AEROSPACE CONTR[employer] AND WARNING [email or web address] respirations Mental status Awake,Calm 03/11/25 13:43 AEROSPACE CONTR[employer] WARNING [email or web address] nausea No 03/11/25 13:43 AEROSPACE CONTR[employer] AND WARNING [email or web address] Vomiting No 03/11/25 13:43 AEROSPACE CONTROL AND WARNING [email or web address] Anesthesia Postop Eval I: Fluid Summary Crystalloid volume administer 1,700 03/11/25 13:43 AEROSPACE CONTR[employer] AND WARNING [email or web address] (ml) Colloids volume administered ( ml) Blood Product volume administered (ml) Total IV fluid infused 1,700 03/11/25 13:43 AEROSPACE CONTROL AND WARNING [email or web address] Anesthesia Postop Eval I: Summary Notes Anesthesia Complication No 03/11/25 13:43 AEROSPACE CONTROL AND WARNING [email or web address] Anesthesia Complication Comment: Post-operative progress note Anesthesia: Postop Eval II Evaluation Mental status: Awake and Calm Pain Level: 1 nausea: No Vomiting: No Complications Anesthesia Complication: No
[2025-03-11] MEDS: Lactated Ringers 1,000 ML 125 ML IV (16:30)
[2025-03-11] MEDS: hydrOXYzine PAM 25 MG Capsule PO ×2 (17:12→21:44)
[2025-03-11] MEDS: Ensure Surgery 237 ML LIQUID PO (17:46)
--- OUTSIDE RECORDS SUMMARY | 2025-03-11 18:53 | XMS RPT_ITS | CCD ---
Author Organization [facility] Care Team Providers Care Small Products I Assembler Name Role Phone BRAD CAPELLAN Unavailable Unavailable [facility] Unavailable Unavailable VIRGILIO, LUCHO A. Unavailable Unavailable VIRGILIO, LUCHO A. Unavailable Unavailable VIRGILIO, LUCHO A. Unavailable Unavailable Vaibhav, Shayy Audrey Unavailable [phone] Susana, Pamela N Unavailable Unavailable Susana, Pamela N Unavailable Unavailable Northern Irish, Bill H Unavailable Unavailable Northern Irish, Bill H Unavailable Unavailable Oscar, Araceli Unavailable Unavailable Oscar, Araceli Unavailable Unavailable Elodia, Shamar J Unavailable Unavailable Elodia, Shamar J Unavailable Unavailable Vaibhav, Shayy N Unavailable Unavailable Vaibhav, Shayy N Unavailable Unavailable Armani, Leisa Emmy Unavailable Unavailable Armani, [place] Emmy Unavailable Unavailable VAIBHAV, SHAYY AUDREY Unavailable Unavailable SUSANA, PAMELA N. Unavailable Unavailable VAIBHAV, SHAYY AUDREY Unavailable Unavailable VAIBHAV, SHAYY AUDREY Unavailable Unavailable PATEL, BLANCA P Unavailable Unavailable VAIBHAV, SHAYY AUDREY Unavailable Unavailable KLIRONOMOS, DIONYSIOS Unavailable Unavailabl e VAIBHAV, SHAYY AUDREY Unavailable Unavailable VAIBHAV, SHAYY AUDREY Unavailable Unavailable VAIBHAV, SHAYY AUDREY Unavailable Unavailable MARY KATE MAURO Unavailable Unavailable VAIBHAV, SHAYY AUDREY Unavailable Unavailable VAIBHAV, SHAYY AUDREY Unavailable Unavailable Christa Iverson Primary Care Provider Vaibhav, Shayy Audrey Primary Care Provider CHRISTA DE LA CRUZ Primary Care Physician Christa Iverson CNP Primary Care Provider CHRISTA DE LA CRUZ Primary Care Physician [employer] PROJECT MANAGER - COOK MANAGER, [facility] Care Provider Kishor BATTALION CHIEF, [facility] Care Provider Kishor BATTALION CHIEF, Christa Unavailable [employer] [employer] PROJECT MANAGER-BATTALION CHIEF, [facility] Care Unavail able DWAINE CHARLTON DO Attending Unavailabl e [employer] PROJECT MANAGER-BATTALION CHIEF, [facility] Care Unavail able [employer] [employer] PROJECT MANAGER-BATTALION CHIEF, CHRISTA Attending Unavail able [employer] [employer] PROJECT MANAGER-BATTALION CHIEF, [facility] Care Unavail able [employer] [employer] PROJECT MANAGER-BATTALION CHIEF, CHRISTA Attending Unavail able [employer] [employer] PROJECT MANAGER-BATTALION CHIEF, [facility] Care Unavail able [employer] [employer] PROJECT MANAGER-BATTALION CHIEF, [place] Attending Unavail able [employer] PROJECT MANAGER-BATTALION CHIEF, [facility] Care Unavail able SAM [employer] PROJECT MANAGER-BATTALION CHIEF, RENO Jama Attending Unavai lable [employer] PROJECT MANAGER-BATTALION CHIEF, [facility] Care Unavail able [employer] PROJECT MANAGER-BATTALION CHIEF, CHRISTA Attending Unavail able [employer] PROJECT MANAGER-BATTALION CHIEF, [facility] Care Unavail able [employer] PROJECT MANAGER-BATTALION CHIEF, CHRISTA Attending Unavail able [employer] PROJECT MANAGER-BATTALION CHIEF, [facility] Care Unavail able [employer] PROJECT MANAGER-BATTALION CHIEF, CHRISTA Attending Unavail able [employer] PROJECT MANAGER-BATTALION CHIEF, [facility] Care Unavail able KELLEE CHADWICK MD Attending Unavail able [employer] PROJECT MANAGER-BATTALION CHIEF, [facility] Care Unavail able [employer] PROJECT MANAGER-BATTALION CHIEF, CHRISTA Attending Unavail able [employer] PROJECT MANAGER-BATTALION CHIEF, [facility] Care Unavail able SAM [employer] PROJECT MANAGER-BATTALION CHIEF, RENO Jama Attending Unavai lable [employer] PROJECT MANAGER-BATTALION CHIEF, [facility] Care Unavail able [employer] PROJECT MANAGER-BATTALION CHIEF, CHRISTA Attending Unavail able [employer] PROJECT MANAGER-BATTALION CHIEF, [facility] Care Unavail able DR REGULO BADILLO MD Attending Unavailable [employer] PROJECT MANAGER-BATTALION CHIEF, [facility] Care Unavail able [employer] PROJECT MANAGER-BATTALION CHIEF, CHRISTA Attending Unavail able [employer] PROJECT MANAGER-BATTALION CHIEF, [facility] Care Unavail able WILFREDO MELVIN CNP Attending Unavailable [employer] PROJECT MANAGER-BATTALION CHIEF, [facility] Care Unavail able REGINA BARNEY DO Attending Unavailable [employer] PROJECT MANAGER-BATTALION CHIEF, [facility] Care Unavail able BELL DE LA O MD Attending Unavailable [employer] PROJECT MANAGER-BATTALION CHIEF, [facility] Care Unavail able DR REGULO BADILLO MD Attending Unavailable [employer] PROJECT MANAGER-BATTALION CHIEF, [place] Primary Care Unavail able [employer] PROJECT MANAGER-BATTALION CHIEF, CHRISTA Attending Unavail able [employer] PROJECT MANAGER-BATTALION CHIEF, [place] Primary Care Unavail able [employer] PROJECT MANAGER-BATTALION CHIEF, CHRISTA Attending Unavail able [employer] PROJECT MANAGER-BATTALION CHIEF, [place] Primary Care Unavail able KELLEE CHADWICK MD Attending Unavail able [employer] PROJECT MANAGER-BATTALION CHIEF, [place] Primary Care Unavail able ECTOR DO, REGINA Attending Unavailable [employer] [employer] PROJECT MANAGER-BATTALION CHIEF, [place] Primary Care Unavail able DWAINE CHARLTON DO Attending Unavailabl e [employer] PROJECT MANAGER-BATTALION CHIEF, [place] Primary Care Unavail able ECTOR DO, REGINA Attending Unavailable [place] [employer] PROJECT MANAGER-BATTALION CHIEF, [place] Primary Care Unavail able 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 PROJECT MANAGER-BATTALION CHIEF, [place] Attending Unavailab le [employer]SON [employer] PROJECT MANAGER-BATTALION CHIEF, [place] Primary Care Unavail able [employer] PROJECT MANAGER-BATTALION CHIEF, CHRISTA Attending Unavail able LORSON, [place] Primary Care Unavailable LORSON, [place] Primary Care Unavailable MONY HARLEY Attending Unavailable LORSON, [place] Primary Care Unavailable JULEE BARRERA Attending Unavailable LORSON, [place] Primary Care Unavailable LORSON, [place] Primary Care Unavailable [place] COOK MANAGER-C, [place] Primary Care Provider [phone] [place] COOK MANAGER-C, Christa Referring Provider [phone] Ced COOK MANAGER-CMaile Attending Provider Dr. Petey Delgado MD Attending Provider Ced COOK MANAGER-CMaile Referring Provider [place]son COOK MANAGER-C, [place] Primary Care Physician [phone] [place] COOK MANAGER-C, Christa Referring Provider [phone] Ced COOK MANAGER-CMaile Attending Physician Dr. Tyler Wang DO Attending Physician [employer] PROJECT MANAGER-BATTALION CHIEF, [place] Primary Care Unavail able [employer]SON [employer] PROJECT MANAGER-BATTALION CHIEF, CHRISTA Attending Unavail able [employer]SON [employer] PROJECT MANAGER-BATTALION CHIEF, [place] Primary Care Unavail able [employer]SON [employer] PROJECT MANAGER-BATTALION CHIEF, CHRISTA Attending Unavail able [employer]SON [employer] PROJECT MANAGER-BATTALION CHIEF, CHRISTA Attending Unavail able [employer]SON [employer] PROJECT MANAGER-BATTALION CHIEF, [place] Primary Care Unavail able [employer]SON [employer] PROJECT MANAGER-BATTALION CHIEF, CHRISTA Attending Unavail able [employer]SON [employer] PROJECT MANAGER-BATTALION CHIEF, [facility] Care Unavail able [employer]SON [employer] PROJECT MANAGER-BATTALION CHIEF, [place] Primary Care Unavail able [employer]SON [employer] PROJECT MANAGER-BATTALION CHIEF, CHRISTA Attending Unavail able L[employer]SON [employer] PROJECT MANAGER-BATTALION CHIEF, [place] Primary Care Unavail able [employer]SON [employer] PROJECT MANAGER-BATTALION CHIEF, CHRISTA Attending Unavail able [employer]SON [employer] PROJECT MANAGER-BATTALION CHIEF, [facility] Care Unavail able 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 PROJECT MANAGER-BATTALION CHIEF, [place] Attending Unavailab le [employer]SON [employer] PROJECT MANAGER-BATTALION CHIEF, [place] Primary Care Unavail able [employer]SON [employer] PROJECT MANAGER-BATTALION CHIEF, CHRISTA Attending Unavail able [employer] PROJECT MANAGER-BATTALION CHIEF, CHRISTA Attending Unavail able [employer]SON [employer] PROJECT MANAGER-BATTALION CHIEF, [place] Primary Care Unavail able [employer]SON [employer] PROJECT MANAGER-BATTALION CHIEF, CHRISTA Attending Unavail able [employer]SON [employer] PROJECT MANAGER-BATTALION CHIEF, [place] Primary Care Unavail able [employer]SON [employer] PROJECT MANAGER-BATTALION CHIEF, CHRISTA Attending Unavail able [employer]SON [employer] PROJECT MANAGER-BATTALION CHIEF, [facility] Care Unavail able [employer]SON [employer] PROJECT MANAGER-BATTALION CHIEF, [place] Attending Unavail able [employer]SON [employer] PROJECT MANAGER-BATTALION CHIEF, [facility] Care Unavail able [employer]on COOK MANAGER, [place] Referring Unavailable [place] COOK MANAGER, [facility] Unavailable Maile Coughlin Attending Unavailable Tyler Wang Attending Unavailable [place] COOK MANAGER, [facility] Unavailable Tyler Wang Admitting Unavailable [place] COOK MANAGER, [facility] Unavailable Maile Coughlin Attending Unavailable Maile Coughlin Referring Unavailable [place] COOK MANAGER, [facility] Unavailable Maile Coughlin Attending Unavailable Maile Coughlin Referring Unavailable Tyler Wang Referring Unavailable [place] COOK MANAGER, [facility] Unavailable Tyler Wang Attending Unavailable Tyler Wang Attending Unavailable Tyler Wang Referring Unavailable [place] COOK MANAGER, [facility] Unavailable [place] COOK MANAGER, [facility] Unavailable Maile Coughlin Referring Unavailable Maile Coughlin Attending Unavailable [place] COOK MANAGER, [place] Referring Unavailable [place] COOK MANAGER, [facility] Unavailable Maile Coughlin Attending Unavailable [place] COOK MANAGER, [facility] Unavailable Maile Coughlin Attending Unavailable [place] COOK MANAGER, [place] Referring Unavailable Tyler Wang Attending Unavailable [place] COOK MANAGER, [facility] Unavailable [place] COOK MANAGER, [place] Referring Unavailable [place] COOK MANAGER, [place] Referring Unavailable Maile Coughlin Attending Unavailable [place] COOK MANAGER, [facility] Unavailable Petey Delgado Attending Unavailable [place] COOK MANAGER, [facility] Unavailable Allergies Allergy Classification Reported Allergen(s) Allergy Type Date of Onset Reaction(s) Facility Aminoketones (1 source) buPROPion; Translations: [bupropion] Drug Allergy seizures [facility] Amitriptyline (1 source) Amitriptyline; Translations: [amitriptyline] Drug Allergy vomiting [facility] Anti-Epileptic Agents (1 source) gabapentin; Translations: [gabapentin] Drug Allergy head feels funny [facility] Aspirin (1 source) Aspirin; Translations: [aspirin] Drug Allergy stomach upset [facility] Bee/Wasp/Ant Venom (1 source) Bee/Wasp/Ant venom Substance Allergy [facility] Corticosteroids (3 sources) Cortisone; Translations: [cortisone] Drug Allergy Vomiting (disorder), Burning (qualifier value) [facility] Comment on above: Pt received Cortison e injection and rash started Latex (1 source) Latex Substance Allergy rash [facility] NSAIDs (3 sources) Ibuprofen; Translations: [ibuprofen] Drug Allergy stomach upset, SICK, shortness of breath [facility] Opioid Agonists (1 source) traMADol; Translations: [tramadol] Drug Allergy stomach upset [facility] Penicillins (antibiotic) (1 source) Penicillin; Translations: [penicillins] Drug Allergy Hives [facility] rofecoxib (1 source) rofecoxib; Translations: [rofecoxib] Drug Allergy shortness of breath [facility] varenicline (1 source) varenicline; Translations: [varenicline] Drug Allergy Blister (morphologic abnormality) [facility] (13 sources) Adhesive Tape; Translations: [ADHESIVE TAPE (ROSINS)] Propensity to adverse reactions (disorder) 07-20-19 13 Rash, Swelling [facility] Repository (20 sources) albuterol / ipratropium; Translations: [IPRATROPIUM-ALBU TEROL] Drug Allergy 03-24-20 05 Other (See Comments), Intolerance [facility] Repository (20 sources) amitriptyline; Translations: [AMITRIPTYLINE] Drug Allergy 03-24-20 05 GI Intolerance, Nausea And Vomiting, GI Upset [facility] Repository (20 sources) bacitracin; Translations: [BACITRACIN] Drug Allergy 06-15-19 12 [facility] Repository (13 sources) Bee; Translations: [BEES] Propensity to adverse reactions (disorder) 12-16-19 10 Swelling [facility] Repository (20 sources) buPROPion; Translations: [BUPROPION HCL] Drug Allergy 08-09-19 09 Mental Status Change [facility] Repository (20 sources) chlorhexidine; Translations: [CHLORHEXIDINE] Drug Allergy 02-04-20 10 [facility] Repository (20 sources) ciprofloxacin; Translations: [CIPROFLOXACIN] Drug Allergy 03-24-20 05 Nausea And Vomiting, GI Upset [facility] Repository (20 sources) clarithromycin; Translations: [CLARITHROMYCIN] Drug Allergy 03-24-20 05 Nausea And Vomiting, GI Upset [facility] Repository (20 sources) erythromycin; Translations: [ERYTHROMYCIN] Drug Allergy 03-24-20 05 Nausea And Vomiting, GI Upset [facility] Repository (20 sources) etodolac; Translations: [ETODOLAC] Drug Allergy 03-24-20 05 Nausea And Vomiting, GI Upset [facility] Repository (20 sources) FLUoxetine; Translations: [FLUOXETINE HCL] Drug Allergy 03-24-20 05 Nausea And Vomiting, GI Upset [facility] Repository (20 sources) ibuprofen; Translations: [IBUPROFEN] Drug Allergy 03-24-20 05 Nausea And Vomiting, GI Upset [facility] Repository (20 sources) naproxen; Translations: [NAPROXEN] Drug Allergy 03-24-20 05 Nausea And Vomiting, GI Upset [facility] Repository (20 sources) neomycin; Translations: [NEOMYCIN] Drug Allergy 03-24-20 05 Rash [facility] Repository (20 sources) Penicillins; Translations: [PENICILLINS] Propensity to adverse reactions (disorder) 03-24-20 05 Hives, Nausea And Vomiting, GI Upset [facility] Repository (20 sources) predniSONE; Translations: [PREDNISONE] Drug Allergy 03-24-20 05 Nausea And Vomiting, Vomiting (disorder), GI Upset [facility] Repository (18 sources) propoxyphene; Translations: [PROPOXYPHENE HCL] Drug Allergy 03-24-20 05 GI Upset [facility] Repository (20 sources) rofecoxib; Translations: [ROFECOXIB] Drug Allergy 03-24-20 05 Anaphylaxis [facility] Repository (20 sources) salicylic acid; Translations: [SALICYLATES] Drug Allergy 03-24-20 05 Nausea And Vomiting, GI Upset [facility] Repository (20 sources) sucralfate; Translations: [SUCRALFATE] Drug Allergy 06-05-19 11 Nausea And Vomiting, GI Upset [facility] Repository (20 sources) varenicline; Translations: [VARENICLINE] Drug Allergy 08-09-19 09 Rash, Blister (morphologic abnormality) [facility] Repository (13 sources) POISON ELIS; Translations: [POISON ELIS] Propensity to adverse reactions (disorder) 07-20-19 13 Rash [facility] Repository (18 sources) THEOBROMA OIL; Translations: [THEOBROMA OIL] Propensity to adverse reactions (disorder) 06-26-19 11 Other: See Comments [facility] Repository (20 sources) PYRETHRINS-PIPERO NYL BUTOXIDE; Translations: [PYRETHRINS-PIPER ONYL BUTOXIDE] Propensity to adverse reactions (disorder) 07-24-19 11 Rash [facility] Repository (20 sources) aspirin; Translations: [ASPIRIN] Drug Allergy 03-02-20 17 stomach upset, Nausea [facility] (20 sources) buPROPion; Translations: [BUPROPION] Drug Allergy 08-09-19 09 Other (See Comments) [facility] (5 sources) ADHESIVE TAPE-SILICONES; Translations: [ADHESIVE TAPE-SILICONES] Propensity to adverse reactions to drug 07-20-19 13 Rash, Swelling [facility] (18 sources) BEE VENOM PROTEIN (HONEY BEE); Translations: [BEE VENOM PROTEIN (HONEY BEE)] Propensity to adverse reactions to drug 12-16-19 10 Swelling [facility] (5 sources) VIT E-NONOXYNOL 9-ALOE VERA; Translations: [VIT E-NONOXYNOL 9-ALOE VERA] Propensity to adverse reactions to drug 07-20-19 13 Rash [facility] (20 sources) gabapentin; Translations: [GABAPENTIN] Drug Allergy 12-06-19 18 head feels funny, Other [facility] Comment on above: MAKES ME FEEL REALY FUNNY (12 sources) Adhesive Tape; Translations: [adhesive tape] Propensity to adverse reactions to drug 07-20-19 13 Rash, Swelling [place] (13 sources) POISON ELIS EXTRACT Drug Allergy 07-20-19 13 Rash [place], [place] (2 sources) Propoxyphene Drug Allergy 03-24-20 05 Nausea And Vomiting [place] (2 sources) Silicones Drug Allergy 07-20-19 13 Rash, Swelling [place] (1 source) Other Propensity to adverse reactions 07-20-19 13 Rash [place], [place] (20 sources) Bee/Wasp/Ant venom Drug allergy [facility] (20 sources) Cortisone; Translations: [cortisone] Drug Allergy Rash [facility] Comment on above: Pt received Cortison e injection and rash started (20 sources) Latex Allergy to substance rash [facility] (20 sources) Penicillin; Translations: [penicillins] Drug Allergy Hives [facility] (20 sources) traMADol; Translations: [tramadol] Drug Allergy stomach upset [facility] (20 sources) Tape, Paper Allergy to substance Rash [facility] (11 sources) Acetaminophen Drug Allergy 07-23-19 22 Nausea/Vom/Kath rrhea [facility] (2 sources) Adhesive Tape Propensity to adverse reactions 07-23-19 22 Other [facility] Work Phone: (12 sources) Amitriptyline; Translations: [amitriptyline HCl] Drug Allergy 07-23-19 Nausea [facility] (11 sources) HYDROcodone Drug Allergy 07-23-19 Nausea/Vom/Kath rrhea [facility] (11 sources) Polymyxin B Drug Allergy 07-23-19 Rash [facility] (12 sources) poison oak extract; Translations: [poison oak extract] Allergy to substance 07-23-19 Swelling [facility] (16 sources) Hydrocortisone; Translations: [hydrocortisone] Drug Allergy Burning (qualifier value) [facility] (1 source) deodorant (non-codified) Allergy to substance Eruption of skin (disorder) [facility] (1 source) Acetaminophen Drug Allergy 01-14-20 [facility] Repository (1 source) Aspirin Drug Allergy 02-12-20 [facility] Repository (1 source) gabapentin Drug Allergy 02-12-20 [facility] Repository (1 source) HYDROcodone Drug Allergy 02-12-20 [facility] Repository (1 source) polymyxin B Drug allergy (disorder) 02-12-20 [facility] Repository (1 source) poison elis extract Drug allergy (disorder) 02-12-20 [facility] Repository (1 source) venom-honey bee Drug allergy (disorder) 02-12-20 [facility] Repository NEGATED: Highlighted row has been ruled out! (1 source) Other Propensity to adverse reactions 07-20-19 13 Nicko TORREZ Work Phone: Medications Current Medications Medication Drug Class(es) Dates Sig (Normalized) Sig (Original) Acetaminophen (13 sources) Start: 10-16-2023 acetaminophen PRN as needed for pain, 0 Refill(s) Start Date: 10/16/23 Status: Ordered Medication Dispense Status: Completed Total Allowed Fills: 1 Fills Dispensed: 0 Start: 10-16-2023 acetaminophen PRN as needed for pain, 0 Refill(s) Start Date: 10/16/23 Status: Ordered Repeat number: 1 Start: 10-16-2023 acetaminophen PRN as needed for pain, 0 Refill(s) Start Date: 10/16/23 Status: Ordered Start: 11-22-2018 End: 11-22-2018 acetaminophen (TYLENOL) tabl et 1,000 mg Acidophilus Extra Strength oral capsule (1 source) Start: 10-19-2023 take 1 capsule by mouth twice daily Acidophilus Extra Strength oral capsule Dose = 1 cap(s), Oral, BID, 0 Refill(s) Start Date: 10/19/23 Status: Ordered Albuterol (20 sources) beta2-Adrenerg ic Agonist Start: 01-29-2025 take 2 puff(s) by inhalation every six hours as needed for wheezing Ventolin HFA MDI (90 mcg/inh) inhalation aerosol 2 puff(s), Inhalation, q6h, PRN as needed for wheezing, # 18 gram(s), 1 Refill(s), Pharmacy: [id number], 157.5, cm, 01/29/25 14:33:00 EDT, Height, kg, 01/29/25 14:33:00 EDT, Dosing Weight Start Date: 01/29/25 Status: Ordered Medication Dispense Status: Completed Quantity: 18.0 Unit: g Total Allowed Fills: 2 Fills Dispensed: 0 Start: 05-29-2023 take 2 puff(s) by in halation every six hours as needed for wheezing Ventolin HFA MDI (90 mcg/inh) inhalation aerosol 2 puff(s), Inhalation, q6h, PRN as needed for wheezing, # 18 gram(s), 1 Refill(s), Pharmacy: [facility] #[id number], 160, cm, 05/29/23 11:25:00 EST, Height, kg, 05/29/23 11:25:00 EST, Dosing Weight Start Date: 05/29/23 Status: Ordered Quantity: 18.0 Unit: g Repeat number: 2 Start: 05-29-2023 take 2 puff(s) by in halation every six hours as needed for wheezing Ventolin HFA MDI (90 mcg/inh) inhalation aerosol 2 puff(s), Inhalation, q6h, PRN as needed for wheezing, # 18 gram(s), 1 Refill(s), Pharmacy: [facility] #[id number], 160, cm, 05/29/23 11:25:00 EST, Height, kg, 05/29/23 11:25:00 EST, Dosing Weight Start Date: 05/29/23 Status: Ordered Start: 10-11-2022 take 2 puff(s) by in halation every six hours as needed for wheezing Ventolin HFA MDI (90 mcg/inh) inhalation aerosol 2 puff(s), Inhalation, q6h, PRN as needed for wheezing, # 18 gram(s), 0 Refill(s), [facility]: [id number], 157.5, cm, 10/11/22 8:56:00 EDT, Height, kg, 10/11/22 8:56:00 EDT, Dosing Weight Start Date: 10/11/22 Status: Ordered Start: 04-05-2022 take 2 puff(s) by in halation every six hours as needed for wheezing Ventolin HFA MDI (90 mcg/inh) inhalation aerosol 2 puff(s), Inhalation, q6h, PRN as needed for wheezing, # 18 gram(s), 0 Refill(s), [id number], 161, cm, 04/05/22 7:52:00 EST, Height, kg, 04/05/22 7:52:00 EST, Dosing Weight Start Date: 04/05/22 Status: Ordered Start: 09-29-2021 take 2 puff(s) by in halation every six hours as needed for wheezing Ventolin HFA MDI (90 mcg/inh) inhalation aerosol 2 puff(s), Inhalation, q6h, PRN as needed for wheezing, # 18 gram(s), 0 Refill(s), Pharmacy: [facility], 161.1, cm, 09/29/21 10:16:00 EDT, Height, kg, 09/29/21 10:16:00 EDT, Dosing Weight Start Date: 09/29/21 Status: Ordered Start: 12-02-2020 take 2 puff(s) by in halation every six hours as needed for wheezing Ventolin HFA MDI (90 mcg/inh) inhalation aerosol 2 puff(s), Inhalation, q6h, PRN as needed for wheezing, # 18 gram(s), 0 Refill(s), Pharmacy: [facility], 160, cm, 12/02/20 12:58:00 EDT, Height, kg, 12/02/20 12:58:00 EDT, Dosing Weight Start Date: 12/02/20 Status: Ordered Start: 04-29-2020 Start: 04-29-2020 Albuterol Sulf ate Active 1 PUFF INHALATION April 29, 2020 4:53pm take 2 puff(s) by in halation every four hours as needed for wheezing albuterol HFA (PROAIR HFA) 90 mcg/actuation inhaler Inhale 2 Puffs as instructed every 4 hours as needed for wheezing/shortness of breath. Active End: 10-12-2021 albuterol HFA (PROVENTIL HFA , VENTOLIN HFA) 90 mcg/actuation inhaler Inhale 2 Puffs as instructed. 0 10/12/2021 Discontinued Comment on above: Inhale 2 Puffs as in structed. albuterol 0.833 mg/ml / ipratropium bromide 0.167 mg/ml inhalation solution (5 sources) Anticholinergic, beta2-Adrenergic Agonist Start: 08-07-19 End: 08-14-19 24 take 3 mL by inhalation every four hours as needed for wheezing ipratropium-albuterol (DUONEB) 0.5 mg-3 mg(2.5 mg base)/3 mL nebu Indications: Stage 3 severe COPD by GOLD classification (HCC) Inhale 3 mL as instructed every 4 hours as needed for wheezing/shortness of breath. 120 Each 5 08/14/2023 Active Anoro Ellipta 62.5 mcg-25 mcg/inh inhalation powder (1 source) Start: 09-04-19 25 take 1 dose by inhalation once daily Anoro Ellipta 62.5 mcg-25 mcg/inh inhalation powder Dose = 1 puff(s), Inhalation, qDay, # 1 EA, 11 Refill(s), Pharmacy: [facility], 157.5, cm, 08/12/24 14:16:00 EDT, Height, kg, 08/12/24 14:16:00 EDT, Dosing Weight Start Date: 09/03/24 Status: Ordered Quantity: 1.0 Unit: EA Repeat number: 12 Arnuity Ellipta 200 mcg/inh inhalation powder (2 sources) Start: 09-04-19 take 1 puff(s) by inhalation every twenty-four hours Arnuity Ellipta 200 mcg/inh inhalation powder 1 puff(s), Inhalation, q24h, # 1 EA, 11 Refill(s), Pharmacy: [facility], 157.5, cm, 08/12/24 14:16:00 EDT, Height, kg, 08/12/24 14:16:00 EDT, Dosing Weight Start Date: 09/03/24 Status: Ordered Medication Dispense Status: Completed Quantity: 1.0 Unit: EA Total Allowed Fills: 12 Fills Dispensed: 0 Start: 09-03-2024 take 1 puff(s) by in halation every twenty-four hours Arnuity Ellipta 200 mcg/inh inhalation powder 1 puff(s), Inhalation, q24h, # 1 EA, 11 Refill(s), Pharmacy: [facility], 157.5, cm, 08/12/24 14:16:00 EDT, Height, kg, 08/12/24 14:16:00 EDT, Dosing Weight Start Date: 09/03/24 Status: Ordered Quantity: 1.0 Unit: EA Repeat number: 12 bifidobacterium animalis [id number] unt / bifidobacterium longum [id number] unt / lactobacillus acidophilus [id number] unt oral capsule (1 source) Start: 05-27-2024 take 1 capsule by mouth once FLORAJEN DIGESTION 15 billion cell capsule Take 1 capsule by mouth every afternoon. 05/27/2024 Active bifidobacterium-lactobacil bradley oral capsule (5 sources) Start: 11-19-2024 take 1 capsule by mouth once daily bifidobacterium-lacto bacillus oral capsule Dose = 1 cap(s), Oral, Daily, # 30 cap(s), 11 Refill(s), Pharmacy: [facility], 157.5, cm, 11/19/24 14:35:00 EDT, Height, kg, 11/19/24 14:35:00 EDT, Dosing Weight Start Date: 11/19/24 Status: Ordered Medication Dispense Status: Completed Quantity: 30.0 Unit: cap(s) Total Allowed Fills: 12 Fills Dispensed: 0 Start: 05-27-2024 take 1 capsule by mo uth once daily bifidobacterium-lactobacillus oral capsu le Dose = 1 cap(s), Oral, Daily, # 30 cap(s), 3 Refill(s), Pharmacy: [facility], 157.5, cm, 05/27/24 10:32:00 EST, Height, kg, 05/27/24 10:32:00 EST, Dosing Weight Start Date: 05/27/24 Status: Ordered Quantity: 30.0 Unit: cap(s) Repeat number: 4 Breo Ellipta 100 mcg-25 mcg/inh inhalation powder (9 sources) Start: 04-05-2022 End: 03-31-2023 take 1 dose by inhalation once daily Breo Ellipta 100 mcg-25 mcg/inh inhalation powder Dose = 1 puff(s), Inhalation, Daily, # 1 EA, 11 Refill(s), [facility]: [id number], 161, cm, 04/05/22 7:52:00 EST, Height, kg, 04/05/22 7:52:00 EST, Dosing Weight Start Date: 04/05/22 Stop Date: 03/31/23 Status: Ordered Start: 09-29-2021 End: 09-24-2022 take 1 dose by inhalation once daily Breo Ellipta 100 mcg-25 mcg/inh inhalation powder Dose = 1 puff(s), Inhalation, Daily, # 1 EA, 11 Refill(s), [facility]: [facility] [facility], 161.1, cm, 09/29/21 10:16:00 EDT, Height Start Date: 09/29/21 Stop Date: 09/24/22 Status: Ordered calcium chloride 0.0014 meq/ml / potassium chloride 0.004 meq/ml / sodium chloride 0.103 meq/ml / sodium lactate 0.028 meq/ml injectable solution (1 source) Start: 11-22-2018 lactated ringe rs infusion celecoxib 200 mg oral capsule (7 sources) Nonsteroidal Anti-inflammatory Drug Start: 04-29-2020 take 200 mg by mouth once daily Celecoxib Active 200 MG PO DAILY April 29, 2020 4:49pm take 1 capsule by mouth twice da eric celecoxib (CELEBREX) 200 MG capsule Take 200 mg by mouth 2 (two) times a day. 0 Active cholecalciferol 1.25 mg oral capsule (5 sources) Vitamin D Start: 12-29-2021 End: 12-24-2022 cholecalciferol 1250 mcg (50,000 intl units) oral capsule Dose : 1,250 mcg = 1 cap(s), Oral, qWeek, # 5 cap(s), 11 Refill(s), [facility]: [facility] #[id number], 161, cm, 12/29/21 10:13:00 EDT, Height, kg, 12/29/21 10:13:00 EDT, Dosing Weight Start Date: 12/29/21 Stop Date: 12/24/22 Status: Ordered Start: 09-26-2017 VITAMIN D3 2,0 00 unit cap cimetidine 300 mg oral tablet (20 sources) Histamine-2 Receptor Antagonist Start: 11-22-2023 End: 12-22-2023 cimetidine 300 mg oral tablet Dose : 300 mg = 1 tab(s), Oral, BID, X 30 day(s), # 60 tab(s), 0 Refill(s), 12/22/23 4:23:00 PM EDT, [facility], 157.5, cm, 11/22/23 15:59:00 EDT, Height, kg, 11/22/23 15:59:00 EDT, Dosing Weight Start Date: 11/22/23 Stop Date: 12/22/23 Status: Ordered Start: 11-15-2022 End: 11-10-2023 cimetidine 200 mg oral table t Dose : 200 mg = 1 tab(s), Oral, BID, d/c previous rx for once daily, d/c previous pantoprazole rx also, X 90 day(s), # 180 tab(s), 3 Refill(s), 11/10/23 9:10:00 AM EDT, [facility]: [facility][id number], 157.5, cm, 11/15/22 8:45:00 EDT, Height, kg, 11/15/22 8:45:00 EDT, Dosing Weight Start Date: 11/15/22 Stop Date: 11/10/23 Status: Ordered Start: 12-07-2021 TAGAMET HB 200 MG TABLET TAGAMET HB 200 MG TABLET, 0 Refill(s), 65.5 Start Date: 12/07/21 Status: Ordered Start: 04-29-2020 End: 12-02-2022 take 1 tablet by mouth once daily Comment on above: Take 200 mg by mouth daily at bedtime. citalopram 10 mg oral tablet (20 sources) Serotonin Reuptake Inhibitor Start: 11-19-2024 End: 11-14-2025 citalopram 10 mg oral tablet Dose : 10 mg = 1 tab(s), Oral, qDay, # 90 tab(s), 3 Refill(s), Pharmacy: [facility], 157.5, cm, 11/19/24 14:35:00 EDT, Height, kg, 11/19/24 14:35:00 EDT, Dosing Weight Start Date: 11/19/24 Stop Date: 11/14/25 Status: Ordered Medication Dispense Status: Completed Quantity: 90.0 Unit: tab(s) Total Allowed Fills: 4 Fills Dispensed: 0 Start: 10-14-2024 citalopram 10 mg oral tablet Dose : 10 mg = 1 tab(s), Oral, qDay, # 30 tab(s), 0 Refill(s), Pharmacy: [facility], 157.5, cm, 08/12/24 14:16:00 EDT, Height, kg, 08/12/24 14:16:00 EDT, Dosing Weight Start Date: 10/14/24 Status: Ordered Quantity: 30.0 Unit: tab(s) Repeat number: 1 Start: 11-15-2022 citalopram 40 mg oral tablet Dose : 40 mg = 1 tab(s), Oral, qDay, # 30 tab(s), 0 Refill(s), Pharmacy: [facility], 157.5, cm, 05/27/24 10:32:00 EST, Height, kg, 05/27/24 10:32:00 EST, Dosing Weight Start Date: 05/27/24 Status: Ordered Quantity: 30.0 Unit: tab(s) Repeat number: 1 Start: 02-01-2022 End: 10-14-2024 take 1 tablet by mouth once daily Citalopram 20 mg tablet Discontinued 20 mg PO DAILY May 24, 2022 1:00am October 14, 2024 1:28pm Start: 12-29-2021 End: 12-24-2022 citalopram 10 mg oral tablet Dose : 10 mg = 1 tab(s), Oral, qDay, # 90 tab(s), 3 Refill(s), [facility]: [facility] #[id number], 161, cm, 12/29/21 10:13:00 EDT, Height, kg, 12/29/21 10:13:00 EDT, Dosing Weight Start Date: 12/29/21 Stop Date: 12/24/22 Status: Ordered Start: 08-09-2021 citalopram 10 mg oral tablet Dose : 10 mg = 1 tab(s), Oral, qDay, # 30 tab(s), 1 Refill(s), [facility]: [id number] [place] [address], 162.2, cm, 08/09/21 13:28:00 EDT, Height Start Date: 08/09/21 Status: Ordered cyclobenzaprine hydrochloride 10 mg oral tablet (5 sources) Muscle Relaxant Start: 10-16-2023 End: 10-26-2023 cyclobenzaprine 10 mg oral tablet Dose : 10 mg = 1 tab(s), Oral, TID, PRN for muscle spasm, X 10 day(s), # 30 tab(s), 0 Refill(s), 10/26/23 11:04:00 AM EDT, [facility]: [facility] #[id number], 159, cm, 10/16/23 10:32:00 EDT, Height, kg, 10/16/23 10:32:00 EDT, Dosing Weight Start Date: 10/16/23 Stop Date: 10/26/23 Status: Ordered Start: 02-17-2022 End: 02-24-2022 cyclobenzaprine 10 mg oral t ablet Dose : 10 mg = 1 tab(s), Oral, TID, PRN for muscle spasm, X 7 day(s), # 21 tab(s), 0 Refill(s), 02/24/22 13:16:00 EST, [facility]: [facility] #[id number], 161, cm, 02/17/22 12:51:00 EST, Height Start Date: 02/17/22 Stop Date: 02/24/22 Status: Ordered dexlansoprazole 60 mg delayed release oral capsule (1 source) Proton Pump Inhibitor Start: 01-29-2024 Dexilant 60 mg oral delayed release capsule Dose : 60 mg = 1 cap(s), Oral, qDay, # 90 cap(s), 3 Refill(s), Pharmacy: [facility], 157.5, cm, 01/29/24 10:42:00 EDT, Height, kg, 01/29/24 10:39:00 EDT, Dosing Weight Start Date: 01/29/24 Status: Ordered Quantity: 90.0 Unit: cap(s) Repeat number: 4 diazePAM 5 mg oral tablet (2 sources) Benzodiazepine Start: 07-22-2021 take 1 tablet by mouth three times daily Diazepam (Valium) 5 mg tablet Active 5 MG PO THREE TIMES A DAY July 22, 2021 10:12pm diclofenac sodium 0.01 mg/mg topical gel (20 sources) Nonsteroidal Anti-inflammatory Drug Start: 04-26-2023 Voltaren 1% topical gel 4 = gram(s), Topical, QID, # 1 EA, 3 Refill(s), [facility]: [facility] #[id number], Gel, 160, cm, 03/13/23 14:30:00 EST, Height, 72.2, kg, 03/13/23 14:30:00 EST, Dosing Weight Start Date: 04/26/23 Status: Ordered Start: 10-06-2017 diclofenac sod ium (VOLTAREN) 75 MG EC tablet Start: 05-12-2016 End: 08-07-2023 apply 2 g topically four times daily diclofenac sodium (VOLTAREN) 1 % topical gel Apply 2 g to affected area four times daily. 1 Tube 0 05/12/2016 08/07/2023 Discontinued Comment on above: Apply 2 g to affecte d area four times daily. 1 ml diphenhydrAMINE hydrochloride 50 mg/ml cartridge (1 source) Histamine-1 Receptor Antagonist Start: 11-22-2018 End: 11-22-2018 diphenhydrAMINE (BENADRYL) injection 12.5 mg DME MISCellaneous (20 sources) Start: 07-19-2022 DME MISCellaneous See Instructions, 2 pairs compression stocking. Dx venous unsufficiency I87.2, # 1 EA, 0 Refill(s) Start Date: 07/19/22 Status: Ordered Medication Dispense Status: Completed Quantity: 1.0 Unit: EA Total Allowed Fills: 1 Fills Dispensed: 0 Start: 07-19-2022 DME MISCellane ous See Instructions, 2 pairs compression stocking. Dx venous unsufficiency I87.2, # 1 EA, 0 Refill(s) Start Date: 07/19/22 Status: Ordered Quantity: 1.0 Unit: EA Repeat number: 1 Start: 07-19-2022 DME MISCellane ous See Instructions, 2 pairs compression stocking. Dx venous unsufficiency I87.2, # 1 EA, 0 Refill(s) Start Date: 07/19/22 Status: Ordered Start: 07-13-2022 DME MISCellane ous See Instructions, 2 pairs of knee-high compression stockings with closed toe. Pressure 20-30 Diagnosis edema., # 1 EA, 0 Refill(s), 71.9 Start Date: 07/13/22 Status: Ordered Medication Dispense Status: Completed Quantity: 1.0 Unit: EA Total Allowed Fills: 1 Fills Dispensed: 0 Start: 07-13-2022 DME MISCellane ous See Instructions, 2 pairs of knee-high compression stockings with closed toe. Pressure 20-30 Diagnosis edema., # 1 EA, 0 Refill(s), 71.9 Start Date: 07/13/22 Status: Ordered Quantity: 1.0 Unit: EA Repeat number: 1 Start: 07-13-2022 DME MISCellane ous See Instructions, 2 pairs of knee-high compression stockings with closed toe. Pressure 20-30 Diagnosis edema., # 1 EA, 0 Refill(s), 71.9 Start Date: 07/13/22 Status: Ordered Start: 10-20-2021 DME MISCellane ous See Instructions, wheeled walker. Dx:chronic back pain, # 1 EA, 0 Refill(s), 65.5 Start Date: 10/20/21 Status: Ordered Medication Dispense Status: Completed Quantity: 1.0 Unit: EA Total Allowed Fills: 1 Fills Dispensed: 0 Start: 10-20-2021 DME MISCellane ous See Instructions, wheeled walker. Dx:chronic back pain, # 1 EA, 0 Refill(s), 65.5 Start Date: 10/20/21 Status: Ordered Quantity: 1.0 Unit: EA Repeat number: 1 Start: 10-20-2021 DME MISCellane ous See Instructions, wheeled walker. Dx:chronic back pain, # 1 EA, 0 Refill(s), 65.5 Start Date: 10/20/21 Status: Ordered Dulera 100 mcg-5 mcg/inh Metered Dose Inhaler (2 sources) Start: 05-10-2021 take 2 puff(s) by mouth twice daily Dulera 100 mcg-5 mcg/inh Metered Dose Inhaler See Instructions, inhale 2 puffs by mouth and INTO THE LUNGS twice a day, # 13 gram(s), 12 Refill(s), [facility], 160.4, cm, 05/10/21 11:09:00 EST, Height, kg, 05/10/21 11:09:00 EST, Dosing Weight Start Date: 05/10/21 Status: Ordered Start: 02-04-2020 take 2 puff(s) by mo [facility] twice daily Dulera 100 mcg-5 mcg/inh Metered Dose Inhaler See Instructions, inhale 2 puffs by mouth and INTO THE LUNGS twice a day, # 13 gram(s), 12 Refill(s), [facility] [address], 158, cm, 01/08/20 8:23:00 EDT, Height, kg, 01/08/20 8:23:00 EDT, Dosing Weight Start Date: 02/04/20 Status: Ordered famotidine 20 mg oral tablet (8 sources) Histamine-2 Receptor Antagonist Start: 01-29-2025 famotidine 20 mg ora l tablet Dose : 20 mg = 1 tab(s), Oral, qHS, # 30 tab(s), 3 Refill(s), Pharmacy: [facility], 157.5, cm, 01/29/25 14:33:00 EDT, Height, kg, 01/29/25 14:33:00 EDT, Dosing Weight Start Date: 01/29/25 Status: Ordered Medication Dispense Status: Completed Quantity: 30.0 Unit: tab(s) Total Allowed Fills: 4 Fills Dispensed: 0 Start: 03-12-2024 take 1 tablet by murphy once daily at bedtime famotidine (PEPCID) 20 mg tablet Take 20 mg by mouth daily at bedtime. 05/08/2024 Active Start: 10-16-2023 End: 11-15-2023 famotidine 40 mg oral tablet Dose : 40 mg = 1 tab(s), Oral, BID, # 60 tab(s), 0 Refill(s), [facility]: [facility][id number], 159, cm, 10/16/23 10:32:00 EDT, Height, kg, 10/16/23 10:32:00 EDT, Dosing Weight Start Date: 10/16/23 Stop Date: 11/15/23 Status: Ordered Start: 11-22-2018 End: 11-22-2018 famotidine (PEPCID) tablet 2 0 mg fenofibrate 48 mg oral tablet (2 sources) Peroxisome Proliferator Receptor alpha Agonist Start: 11-19-2024 fenofibrate 48 mg oral tablet Dose : 48 mg = 1 tab(s), Oral, qDay, # 30 tab(s), 11 Refill(s), Pharmacy: [facility], 157.5, cm, 11/19/24 14:35:00 EDT, Height, kg, 11/19/24 14:35:00 EDT, Dosing Weight Start Date: 11/19/24 Status: Ordered Medication Dispense Status: Completed Quantity: 30.0 Unit: tab(s) Total Allowed Fills: 12 Fills Dispensed: 0 Start: 11-04-2024 fenofibrate 48 mg oral tablet Dose : 48 mg = 1 tab(s), Oral, qDay, # 30 tab(s), 0 Refill(s), Pharmacy: [facility], 157.5, cm, 11/04/24 9:30:00 EDT, Height, kg, 11/04/24 9:30:00 EDT, Dosing Weight Start Date: 11/04/24 Status: Ordered Quantity: 30.0 Unit: tab(s) Repeat number: 1 30 actuat fluticasone furoate 0.1 mg/actuat / umeclidinium 0.0625 mg/actuat / vilanterol 0.025 mg/actuat dry powder inhaler (4 sources) Anticholinergic, Corticosteroid, beta2-Adrenergic Agonist take 1 puff(s) by inhalation once daily kringnpqkcr-rraqovfia-btwrikkh (TRELEGY ELLIPTA) 100-62.5-25 mcg inhalation powder Inhale 1 Puff as instructed once daily. Active 14 actuat fluticasone furoate 0.1 mg/actuat / vilanterol 0.025 mg/actuat dry powder inhaler (6 sources) Corticosteroid, beta2-Adrenergic Agonist Sta rt: 8 fluticasone-vilanterol (BREO ELLIPTA) 100-25 MCG/INH AEPB inhaler Start: 10-22-2017 BREO ELLIPTA 1 00-25 mcg/dose DsDv 120 actuat formoterol fumarate 0.005 mg/actuat / mometasone furoate 0.1 mg/actuat metered dose inhaler (9 sources) Corticosteroid, beta2-Adrenergic Agonist Start: 04-29-2020 Mometasone-Formoterol Active 100 MCG INHALATION NEEDED April 29, 2020 4:53pm Start: 04-29-2020 End: 10-12-2021 take 2 puff(s) by inhalation twice daily mometasone-formoterol (DULERA) 100-5 mcg/actuation inhaler Inhale 2 Puffs as instructed twice daily. 0 10/12/2021 Discontinued Comment on above: Inhale 2 Puffs as in structed twice daily. furosemide 20 mg oral tablet (6 sources) Loop Diuretic Start: 10-25-2023 Lasix 20 mg oral tablet Dose : 20 mg = 1 tab(s), Oral, qDay, # 90 tab(s), 3 Refill(s), [facility]: [facility] #[id number], 157.5, cm, 10/19/23 9:48:00 EDT, Height, kg, 10/19/23 9:48:00 EDT, Dosing Weight Start Date: 10/25/23 Status: Ordered Start: 08-16-2023 Lasix 20 mg or al tablet Dose : 20 mg = 1 tab(s), Oral, qDay, # 30 tab(s), 1 Refill(s), Pharmacy: [facility] #[id number], 160, cm, 08/15/23 11:14:00 EDT, Height, kg, 08/15/23 11:14:00 EDT, Dosing Weight Start Date: 08/16/23 Status: Ordered 1 ml hydrALAZINE hydrochloride 20 mg/ml injection (1 source) Arteriolar Vasodilator Start: 11-22-2018 hydrALAZINE (APRESOLINE) injection 5 mg hydroCHLOROthiazide 25 mg oral tablet (20 sources) Thiazide Diuretic Start: 05-29-2023 End: 05-23-2024 hydroCHLOROthiazide 25 mg oral tablet Dose : 25 mg = 1 tab(s), 0 Refill(s) Start Date: 08/25/23 Status: Ordered Start: 11-15-2022 End: 05-14-2023 hydroCHLOROthiazide 25 mg or al tablet Dose : 25 mg = 1 tab(s), Oral, qDay, # 30 tab(s), 5 Refill(s), [facility]: [facility] #[id number], 157.5, cm, 11/15/22 8:45:00 EDT, Height, kg, 11/15/22 8:45:00 EDT, Dosing Weight Start Date: 11/15/22 Stop Date: 05/14/23 Status: Ordered 1 ml HYDROmorphone hydrochloride 1 mg/ml cartridge (3 sources) Opioid Agonist Start: 11-22-2018 HYDROmorphone (DILAUDID) injection 0.25 mg Start: 11-22-2018 HYDROmorphone (DILAUDID) injection 0.5 mg hydrOXYzine hydrochloride 25 mg oral tablet (20 sources) Antihistamine Start: 01-29-2025 hydrOXYzine hy drochloride 25 mg oral tablet Dose : 50 mg = 2 tab(s), Oral, QID, TAKE 2 TABLET BY MOUTH 4 TIMES DAILY as needed, # 240 EA, 3 Refill(s), Pharmacy: [facility], 157.5, cm, 01/29/25 14:33:00 EDT, Height, kg, 01/29/25 14:33:00 EDT, Dosing Weight Start Date: 01/29/25 Status: Ordered Medication Dispense Status: Completed Quantity: 240.0 Unit: EA Total Allowed Fills: 4 Fills Dispensed: 0 Start: 10-14-2024 hydrOXYzine hy drochloride 25 mg oral tablet Dose : 25 mg = 1 tab(s), Oral, QID, TAKE 1 TABLET BY MOUTH 4 TIMES DAILY, # 120 tab(s), 0 Refill(s), Pharmacy: [facility], 157.5, cm, 08/12/24 14:16:00 EDT, Height, kg, 08/12/24 14:16:00 EDT, Dosing Weight Start Date: 10/14/24 Status: Ordered Quantity: 120.0 Unit: tab(s) Repeat number: 1 Start: 01-29-2024 End: 07-27-2024 hydrOXYzine hydrochloride 25 mg oral tablet Dose : 25 mg = 1 tab(s), Oral, QID, take 1 tablet by mouth four times a day, X 30 day(s), # 120 tab(s), 5 Refill(s), 07/27/24 10:57:00 AM EDT, Pharmacy: [facility], 157.5, cm, 01/29/24 10:42:00 EDT, Height, kg, 01/29/24 10:39:00 EDT, Dosing Weight Start Date: 01/29/24 Stop Date: 07/27/24 Status: Ordered Quantity: 120.0 Unit: tab(s) Repeat number: 6 Start: 05-29-2023 take 1 tablet by murphy four times daily hydrOXYzine hydrochloride 25 mg oral tablet take 1 tablet by mouth four times a day Start Date: 05/29/23 Status: Ordered Start: 05-24-2022 End: 09-02-2024 take 2 tablets by mouth every six hours as needed for anxiety Hydroxyzine Hcl 10 mg tablet Discontinued 20 mg PO EVERY 6 HOURS NEEDED as needed for Anxiety May 24, 2022 1:00am September 02, 2024 3:03pm Start: 05-24-2022 take 20 mg by mouth every six hours as needed Hydroxyzine Hcl Active 20 MG PO EVERY 6 HOURS NEEDED May 24, 2022 12:00am Start: 02-01-2022 End: 05-14-2023 hydrOXYzine hydrochloride 25 mg oral tablet Dose : 25 mg = 1 tab(s), Oral, QID, X 30 day(s), # 120 tab(s), 5 Refill(s), 05/14/23 9:13:00 AM EST, [facility]: [facility] #[id number], 157.5, cm, 11/15/22 8:45:00 EDT, Height, kg, 11/15/22 8:45:00 EDT, Dosing Weight Start Date: 11/15/22 Stop Date: 05/14/23 Status: Ordered Start: 12-29-2021 End: 06-27-2022 hydrOXYzine hydrochloride 10 mg oral tablet Dose : 20 mg = 2 tab(s), Oral, QID, PRN as needed for anxiety, X 30 day(s), # 90 tab(s), 5 Refill(s), 06/27/22 10:31:00 EDT, [facility]acy: [facility] #[id number], 161, cm, 12/29/21 10:13:00 EDT, Height, kg, 12/29/21 10:13:00 EDT, Dosing Weight Start Date: 12/29/21 Stop Date: 06/27/22 Status: Ordered ipratropium bromide 0.042 mg/actuat metered dose nasal spray (2 sources) Anticholinergic Start: 07-28-2017 ipratropium (ATROVENT) 42 mcg (0.06 %) nasal spray 4 ml labetalol hydrochloride 5 mg/ml cartridge (1 source) beta-Adrenergic Bryce Start: 11-22-2018 labetalol (NORMODYNE;TRAND ATE) injection 5 mg Lactobacillus acidophilus (20 sources) Start: 11-15-2022 take 1 capsule by mouth once daily Acidophilus oral capsule Dose = 1 cap(s), Oral, qDay, # 30 cap(s), 11 Refill(s), Pharmacy: [facility] #[id number], 157.5, cm, 11/15/22 8:45:00 EDT, Height, kg, 11/15/22 8:45:00 EDT, Dosing Weight Start Date: 11/15/22 Status: Ordered Start: 12-07-2021 take 1 capsule by [facility] once daily Acidophilus oral capsule Dose = 1 cap(s), Oral, qDay, # 30 cap(s), 11 Refill(s), [facility]: [facility] #[id number], 161.1, cm, 09/29/21 10:16:00 EDT, Height, kg, 09/29/21 10:16:00 EDT, Dosing Weight Start Date: 12/07/21 Status: Ordered Start: 12-02-2020 take 1 capsule by [facility] once daily Acidophilus oral capsule Dose = 1 cap(s), Oral, qDay, # 30 cap(s), 11 Refill(s), [facility], 160, cm, 12/02/20 12:58:00 EDT, Height, kg, 12/02/20 12:58:00 EDT, Dosing Weight Start Date: 12/02/20 Status: Ordered Lactobacillus ac idophilus (ACIDOPHILUS ORAL) Take by mouth. Active Lactobacillus ac idophilus (ACIDOPHILUS ORAL) Take by mouth. 0 Active Comment on above: Take by mouth. Lactobacillus Combination No.9 (Adult 50 Plus Probiotic) 4 billion cell capsule (11 sources) Start: take 4 capsules by mouth once daily Lactobacillus Combination No.9 (Adult 50 Plus Probiotic) 4 billion cell capsule Active 4000 MMU CELLS PO DAILY April 09, 2020 11:29am administer with a meal Start: 04-09-2020 End: 09-02-2024 take 4 capsules by mouth once daily Lactobacillus Combination No.9 (Adult 50 Plus Probiotic) 4 billion cell capsule Discontinued 4000 NMA PO DAILY April 09, 2020 1:00am September 02, 2024 3:03pm administer with a meal Start: 04-09-2020 take 4 capsules by m outh once daily Lactobacillus Combination No.9 (Adult 50 Plus Probiotic) 4 billion cell capsule Active 4000 NMA PO DAILY April 09, 2020 1:00am administer with a meal Start: 04-09-2020 take 4 capsules by m outh once daily Lactobacillus Combination No.9 (Adult 50 Plus Probiotic) 4 billion cell capsule Active 4000 MMU CELLS PO DAILY April 09, 2020 12:00am administer with a meal lansoprazole 30 mg delayed release oral capsule (20 sources) Proton Pump Inhibitor Start: 11-22-2023 lansoprazole 30 mg oral delayed release capsule Dose : 30 mg = 1 cap(s), Oral, qDay, # 30 cap(s), 11 Refill(s), Pharmacy: [id number], 157.5, cm, 11/22/23 15:59:00 EDT, Height, kg, 11/22/23 15:59:00 EDT, Dosing Weight Start Date: 11/22/23 Status: Ordered Start: 05-29-2023 lansoprazole 3 0 mg oral delayed release capsule Dose : 30 mg = 1 cap(s), Oral, qDay, # 30 cap(s), 11 Refill(s), Pharmacy: [facility] #[id number], 160, cm, 05/29/23 11:25:00 EST, Height, kg, 05/29/23 11:25:00 EST, Dosing Weight Start Date: 05/29/23 Status: Ordered Start: 02-03-2023 lansoprazole 3 0 mg oral delayed release capsule Dose : 30 mg = 1 cap(s), Oral, qDay, Sent in absence of PCP, # 30 cap(s), 2 Refill(s), Pharmacy: [facility] #[id number], 157.5, cm, 12/20/22 13:55:00 EDT, Height, kg, 12/20/22 13:55:00 EDT, Dosing Weight Start Date: 02/03/23 Status: Ordered Start: 11-30-2022 lansoprazole 3 0 mg oral delayed release capsule Dose : 30 mg = 1 cap(s), Oral, qDay, # 30 cap(s), 1 Refill(s), Pharmacy: [facility] #[id number], 157.5, cm, 11/15/22 8:45:00 EDT, Height, kg, 11/15/22 8:45:00 EDT, Dosing Weight Start Date: 11/30/22 Status: Ordered linaclotide 0.072 mg oral capsule (18 sources) Guanylate Cyclase-C Agonist Start: 07-28-2020 Linzess 72 mcg oral capsule Dose : 144 mcg = 2 cap(s), Oral, qDay, PRN, # 30 cap(s), 0 Refill(s) Start Date: 07/28/20 Status: Ordered Start: 04-29-2020 End: 08-07-2023 take 145 ug by mouth once daily Linaclotide Active 145 MCG PO DAILY April 29, 2020 4:49pm Comment on above: Take by mouth once d aily. losartan potassium 25 mg oral tablet (4 sources) Angiotensin 2 Receptor Bryce Start: 07-24-2024 losartan 25 mg oral tablet Dose : 25 mg = 1 tab(s), Oral, qDay, # 30 tab(s), 1 Refill(s), Pharmacy: [id number], 157.3, cm, 07/01/24 14:28:00 EDT, Height, kg, 07/01/24 14:28:00 EDT, Dosing Weight Start Date: 07/24/24 Status: Ordered Medication Dispense Status: Completed Quantity: 30.0 Unit: tab(s) Total Allowed Fills: 2 Fills Dispensed: 0 magnesium oxide 250 mg oral tablet (6 sources) Start: 07-01-2024 End: 06-26-2025 magnesium oxide 250 mg oral tablet Dose : 250 mg = 1 tab(s), Oral, qDay, X 30 day(s), # 30 tab(s), 11 Refill(s), 06/26/25 3:02:00 PM EDT, Pharmacy: [id number], 157.3, cm, 07/01/24 14:28:00 EDT, Height, kg, 07/01/24 14:28:00 EDT, Dosing Weight Start Date: 07/01/24 Stop Date: 06/26/25 Status: Ordered Medication Dispense Status: Completed Quantity: 30.0 Unit: tab(s) Total Allowed Fills: 12 Fills Dispensed: 0 Start: 05-28-2024 End: 06-27-2024 Magnesium Oxide 250 mg magne sium tab 05/28/2024 Active meloxicam 15 mg oral tablet (4 sources) Nonsteroidal Anti-inflammatory Drug Start: 04-26-2023 meloxicam 15 mg oral tablet Dose : 15 mg = 1 tab(s), Oral, qDay, # 30 tab(s), 0 Refill(s), [facility]: [facility][id number], 160, cm, 03/13/23 14:30:00 EST, Height, kg, 03/13/23 14:30:00 EST, Dosing Weight Start Date: 04/26/23 Status: Ordered 1 ml meperidine hydrochloride 50 mg/ml injection (1 source) Opioid Agonist Start: 11-22-2018 meperidine (DEMEROL) injection 12.5 mg 24 hr metoprolol succinate 25 mg extended release oral tablet (20 sources) beta-Adrenergic Bryce Start: 05-27-2024 metopr olol succinate 25 mg oral TABLET extended release Dose : 25 mg = 1 tab(s), Oral, qDay, Do not crush or chew (controlled release), # 180 tab(s), 3 Refill(s), Pharmacy: [id number], 157.5, cm, 01/29/24 10:42:00 EDT, Height, kg, 01/29/24 10:39:00 EDT, Dosing Weight Start Date: 05/27/24 Status: Ordered Medication Dispense Status: Completed Quantity: 180.0 Unit: tab(s) Total Allowed Fills: 4 Fills Dispensed: 0 Start: 01-10-2023 metoprolol suc cinate 25 mg oral TABLET extended release Dose : 25 mg = 1 tab(s), Oral, qDay, Do not crush or chew (controlled release), # 180 tab(s), 3 Refill(s), Pharmacy: [facility] #[id number], 157.5, cm, 12/20/22 13:55:00 EDT, Height, kg, 12/20/22 13:55:00 EDT, Dosing Weight Start Date: 01/10/23 Status: Ordered Start: 10-24-2022 metoprolol suc cinate 25 mg oral TABLET extended release Dose : 25 mg = 1 tab(s), Oral, BID, Do not crush or chew (controlled release), # 60 tab(s), 2 Refill(s), Pharmacy: [facility] #[id number], 157.5, cm, 10/24/22 9:48:00 EDT, Height, kg, 10/24/22 9:48:00 EDT, Dosing Weight Start Date: 10/24/22 Status: Ordered Start: 08-09-2022 metoprolol suc cinate 25 mg oral TABLET extended release Dose : 25 mg = 1 tab(s), Oral, qDay, Do not crush or chew (controlled release), # 30 tab(s), 2 Refill(s), Pharmacy: [facility] #[id number], 157.5, cm, 08/09/22 10:48:00 EDT, Height Start Date: 08/09/22 Status: Ordered mirtazapine 15 mg oral tablet (3 sources) Start: 02-01-2018 take 1 tablet by mouth once daily mirtazapine (REMERON) 15 MG tablet Take 1 (one) tablet (15 mg total) by mouth nightly. 30 tablet 1 02/01/2018 Active Start: 11-07-2017 End: 12-07-2017 take 1 tablet by mouth once mirtazapine (REMERON) 7.5 MG tablet Take 1 (one) tablet (7.5 mg total) by mouth nightly. 30 tablet 2 11/07/2017 12/07/2017 Active Mometasone-Formoterol (1 source) Start: 04-29-2020 Mometasone-Formoterol Active 100 MCG INHALATION NEEDED April 29, 2020 12:00am Mometasone-Formoterol 13 GM HFA aerosol inhaler (5 sources) Start: 04-29-2020 Mometasone-Formoterol 13 GM HFA aerosol inhaler Active 100 ug INHALATION NEEDED as needed for Asthma April 29, 2020 1:00am nicotine 2 mg oral lozenge (13 sources) Cholinergic Nicotinic Agonist Start: 10-11-2022 End: 02-08-2023 Nicorette Mini 2 mg oral transmucosal lozenge Dose : 2 mg = 1 lozenge(s), Transmucosal, q2h, PRN as needed for smoking cessation, X 30 day(s), # 132 lozenge(s), 3 Refill(s), 02/08/23 9:32:00 AM EST, Pharmacy: [facility] #[id number], 157.5, cm, 10/11/22 8:56:00 EDT, Height Start Date: 10/11/22 Stop Date: 02/08/23 Status: Ordered Start: 06-21-2021 End: 09-19-2021 Nicotine Polacrilex 2 mg arsalan enge Indications: Cigarette nicotine dependence without complication Place 1 Lozenge between cheek and gum every 2 hours as needed. 24 Lozenge 0 06/21/2021 09/19/2021 Active Start: 02-05-2018 End: 03-07-2018 nicotine polacrilex (COMMIT) 4 MG lozenge APPLY 1 (ONE) LOZENGE (4 MG TOTAL) TO THE MOUTH OR THROAT NEEDED FOR SMOKING CESSATION. 96 lozenge 0 02/05/2018 03/07/2018 Active Start: 10-10-2017 nicotine polac rilex (COMMIT) 2 MG lozenge Comment on above: Place 1 Lozenge betw een cheek and gum every 2 hours as needed. ofloxacin 3 mg/ml otic solution (4 sources) Quinolone Antimicrobial Start: 08-12-2024 End: 08-22-2024 ofloxacin 0.3% otic solution Dose = 5 drop(s), Ear, left, BID, X 10 day(s), # 10 mL, 0 Refill(s), Pharmacy: [id number], 157.5, cm, 08/12/24 14:16:00 EDT, Height, kg, 08/12/24 14:16:00 EDT, Dosing Weight Start Date: 08/12/24 Stop Date: 08/22/24 Status: Ordered Quantity: 10.0 Unit: mL Repeat number: 1 Start: 11-22-2018 End: 11-29-2018 ofloxacin (FLOXIN) 0.3 % jase c solution Place 4 drops into the left ear 2 times daily for 7 days 10 mL 1 11/22/2018 11/29/2018 Active omeprazole 40 mg delayed release oral capsule (13 sources) Proton Pump Inhibitor Start: 01-29-2025 omeprazo le 40 mg oral delayed release capsule Dose : 40 mg = 1 cap(s), Oral, qDay, # 30 cap(s), 5 Refill(s), Pharmacy: [id number], 157.5, cm, 01/29/25 14:33:00 EDT, Height, kg, 01/29/25 14:33:00 EDT, Dosing Weight Start Date: 01/29/25 Status: Ordered Medication Dispense Status: Completed Quantity: 30.0 Unit: cap(s) Total Allowed Fills: 6 Fills Dispensed: 0 Start: 09-02-2024 take 1 capsule by [facility] once daily Start: 08-12-2024 omeprazole 40 mg oral delayed release capsule Dose : 40 mg = 1 cap(s), Oral, qDay, # 30 cap(s), 0 Refill(s), Pharmacy: [id number], 157.5, cm, 08/12/24 14:16:00 EDT, Height, kg, 08/12/24 14:16:00 EDT, Dosing Weight Start Date: 08/12/24 Status: Ordered Quantity: 30.0 Unit: cap(s) Repeat number: 1 Start: 09-27-2022 omeprazole 40 mg oral delayed release capsule Dose : 40 mg = 1 cap(s), Oral, qDay, # 30 cap(s), 0 Refill(s) Start Date: 09/27/22 Status: Ordered Start: 08-05-2016 take 1 capsule by [facility] once daily omeprazole (PRILOSEC) 40 MG capsule Take 1 (one) capsule (40 mg total) by mouth daily. 30 capsule 3 12/29/2017 Active Omeprazole 40 mg capsule,delayed release(DR/EC) (3 sources) Start: 09-02-2024 take 1 capsule by mouth once daily Omeprazole 40 mg capsule,delayed release(DR/EC) Active 40 mg PO daily September 02, 2024 12:00am 2 ml ondansetron 2 mg/ml injection (1 source) Serotonin-3 Receptor Antagonist Start: 11-22-2018 End: 11-22-2018 ondansetron (ZOFRAN) injection 4 mg oxyCODONE (1 source) Opioid Agonist Start: 11-22-2018 End: 11-22-2018 oxyCODONE (ROXICODONE) immediate release tablet 5 mg pantoprazole 40 mg delayed release oral tablet (20 sources) Proton Pump Inhibitor Start: 10-11-2022 End: 10-06-2023 pantoprazole 40 mg oral enteric coated tablet Dose : 40 mg = 1 tab(s), Oral, qDay, # 90 tab(s), 3 Refill(s), Pharmacy: [facility] #[id number], 157.5, cm, 10/11/22 8:56:00 EDT, Height Start Date: 10/11/22 Stop Date: 10/06/23 Status: Ordered Start: 03-05-2019 End: 04-09-2020 take 1 tablet by mouth once daily Pantoprazole 20 MG tablet Discontinued 20 mg PO DAILY March 05, 2019 1:00am April 09, 2020 11:28am Start: 02-19-2018 pantoprazole ( PROTONIX) 40 MG tablet Take 40 mg by mouth 0 02/19/2018 Active potassium chloride 20 meq or al tablet (12 sources) Start: 11-19-2024 Potassium Chlo ride (Eqv-K-Tab) 20 mEq oral tablet, extended release Dose : 20 mEq = 1 tab(s), Oral, BID, # 60 tab(s), 5 Refill(s), Pharmacy: [id number], 157.5, cm, 11/19/24 14:35:00 EDT, Height, kg, 11/19/24 14:35:00 EDT, Dosing Weight Start Date: 11/19/24 Status: Ordered Medication Dispense Status: Completed Quantity: 60.0 Unit: tab(s) Total Allowed Fills: 6 Fills Dispensed: 0 Start: 05-27-2024 Potassium Chlo ride (Eqv-K-Tab) 20 mEq oral tablet, extended release Dose : 20 mEq = 1 tab(s), Oral, BID, # 60 tab(s), 5 Refill(s), Pharmacy: [id number], 157.5, cm, 05/27/24 10:32:00 EST, Height, kg, 05/27/24 10:32:00 EST, Dosing Weight Start Date: 05/27/24 Status: Ordered Quantity: 60.0 Unit: tab(s) Repeat number: 6 Start: 11-22-2023 Potassium Chlo ride (Eqv-K-Tab) 20 mEq oral tablet, extended release Dose : 20 mEq = 1 tab(s), Oral, BID, # 60 tab(s), 5 Refill(s), Pharmacy: [id number], 157.5, cm, 11/22/23 15:59:00 EDT, Height, kg, 11/22/23 15:59:00 EDT, Dosing Weight Start Date: 11/22/23 Status: Ordered Start: 10-17-2023 Potassium Chlo ride (Eqv-K-Tab) 20 mEq oral tablet, extended release Dose : 20 mEq = 1 tab(s), Oral, BID, # 60 tab(s), 0 Refill(s), [facility]: [facility] #[id number], 159, cm, 10/16/23 10:32:00 EDT, Height, kg, 10/16/23 10:32:00 EDT, Dosing Weight Start Date: 10/17/23 Status: Ordered pregabalin 50 mg oral capsule (9 sources) Start: 07-25-2023 take 1 capsule by mouth every twelve hours pregabalin (LYRICA) 50 mg capsule Take 50 mg by mouth every 12 hours. 07/25/2023 Active Start: 05-29-2023 take 1 capsule by mo [facility] twice daily pregabalin 50 mg oral capsule take 1 capsule by mouth twice a day Start Date: 05/29/23 Status: Ordered promethazine hydrochloride 25 mg oral tablet (4 sources) Phenothiazine Start: 12-11-2023 promethazine 2 5 mg oral tablet Dose : 25 mg = 1 tab(s), Oral, q4h, PRN as needed for nausea/vomiting, # 20 tab(s), 0 Refill(s), Pharmacy: [id number], 157.5, cm, 11/22/23 15:59:00 EDT, Height, kg, 11/22/23 15:59:00 EDT, Dosing Weight Start Date: 12/11/23 Status: Ordered Quantity: 20.0 Unit: tab(s) Repeat number: 1 Start: 11-22-2018 End: 11-22-2018 promethazine (PHENERGAN) inj ection 6.25 mg raNITIdine 150 mg oral tablet (2 sources) Histamine-2 Receptor Antagonist Start: 10-02-2017 ranitidine (ZANTAC) 150 MG tablet 3 ml sodium chloride 9 mg/ml injection (2 sources) Start: 11-22-2018 sodium chloride flush 0.9 % injection 10 mL levothyroxine sodium 0.05 mg oral tablet (20 sources) l-Thyroxine Start: 01-22-2019 take 1 tablet by mouth once daily levothyroxine 50 mcg (0.05 mg) oral tablet TAKE 1 TABLET BY MOUTH ONCE DAILY Start Date: 01/22/19 Status: Ordered Medication Dispense Status: Completed Total Allowed Fills: 1 Fills Dispensed: 0 Start: 01-08-2015 take 50 ug by mouth once daily Levothyroxine Active 50 MCG PO DAILY January 08, 2015 4:57pm Start: 07-03-2012 take 1 tablet by [facility] once daily levothyroxine (SYNTHROID) 50 mcg tablet Take 50 mcg by mouth once daily. Active levothyroxine (S YNTHROID, LEVOTHROID) 75 MCG tablet Take 75 mcg by mouth. 0 Active Comment on above: Take 50 mcg by mouth once daily. 60 actuat tiotropium 0.0025 mg/actuat metered dose inhaler (4 sources) Anticholinergic Start: 10-22-2017 SPIRIVA RESPIMAT 2.5 mcg/actuation Mist Start: 10-22-2017 SPIRIVA RESPIM AT 2.5 mcg/actuation Mist tiZANidine 4 mg oral tablet (3 sources) Central alpha-2 Adrenergic Agonist tiZANidine (ZANAFLEX ) 4 MG tablet Take by mouth 3 (three) times a day. 0 Active torsemide 20 mg oral tablet (4 sources) Loop Diuretic Start: 09-02-2024 torsemide 20 mg oral tablet Dose : 20 mg = 1 tab(s), Oral, Daily, # 30 tab(s), 0 Refill(s) Start Date: 09/02/24 Status: Ordered Quantity: 30.0 Unit: tab(s) Repeat number: 1 Start: 02-19-2024 torsemide 20 m g oral tablet Dose : 20 mg = 1 tab(s), Oral, Daily, # 90 tab(s), 3 Refill(s), Pharmacy: [id number], 157.5, cm, 01/29/24 10:42:00 EDT, Height, kg, 01/29/24 10:39:00 EDT, Dosing Weight Start Date: 02/19/24 Status: Ordered Quantity: 90.0 Unit: tab(s) Repeat number: 4 Start: 12-26-2023 torsemide 20 m g oral tablet Dose : 20 mg = 1 tab(s), Oral, Daily, # 30 tab(s), 1 Refill(s), Pharmacy: [id number], 157.5, cm, 12/26/23 11:29:00 EDT, Height, kg, 12/26/23 11:29:00 EDT, Dosing Weight Start Date: 12/26/23 Status: Ordered traMADol hydrochloride 50 mg oral tablet (9 sources) Opioid Agonist Start: 05-29-2023 take 1 tablet by mouth twice daily for pain traMADol 50 mg oral tablet take 1 tablet by mouth twice a day if needed for pain Start Date: 05/29/23 Status: Ordered take 1 tablet by mouth three naveen es daily traMADol (ULTRAM) 50 mg tablet Take 50 mg by mouth three times a day. Active Trelegy Ellipta 100 mcg-62.5 mcg-25 mcg/inh inhalation powder (14 sources) Start: 04-01-2024 take 1 dose by mouth once daily Trelegy Ellipta 100 mcg-62.5 mcg-25 mcg/inh inhalation powder Dose = 1 puff(s), Inhalation, qDay, at the same time every day. Following administration, rinse mouth with water after use (do not swallow)., # 1 EA, 11 Refill(s), Pharmacy: [id number], 157.5, cm, 01/29/24 10:42:00 EDT, Height, kg, 01/29/24 10:39:00 EDT, Dosing Weight Start Date: 04/01/24 Status: Ordered Quantity: 1.0 Unit: EA Repeat number: 12 Start: 06-26-2023 take 1 dose by mouth once daily Trelegy Ellipta 100 mcg-62.5 mcg-25 mcg/inh inhalation powder Dose = 1 puff(s), Inhalation, qDay, at the same time every day. Following administration, rinse mouth with water after use (do not swallow)., # 60 EA, 11 Refill(s), Pharmacy: [facility] #[id number], 160, cm, 05/29/23 11:25:00 EST, Height, kg, 05/29/23 11:25:00 EST, Dosing Weight Start Date: 06/26/23 Status: Ordered Trelegy Ellipta 200 mcg-62.5 mcg-25 mcg/inh inhalation powder (1 source) Start: 05-29-2023 End: 05-23-2024 take 1 dose by inhalation once daily Trelegy Ellipta 200 mcg-62.5 mcg-25 mcg/inh inhalation powder Dose = 1 puff(s), Inhalation, qDay, at the same time every day, # 1 EA, 11 Refill(s), Pharmacy: [facility] #[id number], 160, cm, 05/29/23 11:25:00 EST, Height, kg, 05/29/23 11:25:00 EST, Dosing Weight Start Date: 05/29/23 Stop Date: 05/23/24 Status: Ordered vitamin B12 (4 sources) Vitamin B12 Start: 08-09-2021 Vitamin B12 0 Refill(s) Start Date: 08/09/21 Status: Ordered Vitamin D2 1.25 mg (50,000 intl units) oral capsule (1 source) Start: 08-09-2021 take 1 capsule by mouth every week Vitamin D2 1.25 mg (50,000 intl units) oral capsule take 1 capsule by mouth every week Start Date: 08/09/21 Status: Ordered wheat dextrin 1000 mg chewable tablet (1 source) Start: 01-29-2025 take 1 tablet by mouth once daily Benefiber Prebiotic Fiber oral tablet, chewable Dose = 1.5 tab(s), Chewed, qDay, # 100 tab(s), 0 Refill(s), Pharmacy: [id number], 157.5, cm, 01/29/25 14:33:00 EDT, Height, kg, 01/29/25 14:33:00 EDT, Dosing Weight Start Date: 01/29/25 Status: Ordered Medication Dispense Status: Completed Quantity: 100.0 Unit: tab(s) Total Allowed Fills: 1 Fills Dispensed: 0 Completed/Discontinued Medications Medication Drug Class(es) Dates Sig (Normalized) Sig (Original) acetaminophen 325 mg / HYDROcodone bitartrate 5 mg oral tablet (20 sources) Opioid Agonist Start: 07-18-2018 End: 07-23-2018 take 1-2 tablets by mouth every six hours as needed for pain Hydrocodone-Acetamin ophen 1 TABLET tablet Discontinued 1 - 2 {tbl} PO EVERY 6 HOURS NEEDED as needed for Pain 20 5 July 18, 2018 12:00am July 22, 2018 12:00am July 23, 2018 12:09am Postoperative pain Other acute postprocedural pain take 1-2 tabs every 6 hours as needed for pain Start: 07-18-2018 End: 07-23-2018 take 1-2 tablets by mouth every six hours as needed for pain Hydrocodone-Acetaminophen Discontinued 1 - 2 TABLET PO EVERY 6 HOURS NEEDED 20 5 July 18, 2018 8:08am July 23, 2018 12:09am take 1-2 tabs every 6 hours as needed for pain Start: 10-01-2013 End: 08-08-2014 Hydrocodone-Acetaminophen 1 TABLET tablet Discontinued 1 {tbl} PO EVERY 6 HOURS NEEDED as needed for Pain 20 0 July 28, 2014 12:31pm August 08, 2014 5:34pm Start: 10-01-2013 End: 08-08-2014 take 1 tablet by mouth every six hours as needed Hydrocodone-Acetaminophen Discontinued 1 TABLET PO EVERY 6 HOURS NEEDED July 28, 2014 11:31am August 08, 2014 4:34pm acetaminophen 325 mg / oxyCODONE hydrochloride 5 mg oral tablet (11 sources) Opioid Agonist Start: 10-31-2018 End: 11-10-2018 Oxycodone-Acetaminophen 1 TABLET tablet Discontinued 1 - 2 {tbl} PO EVERY 6 HOURS NEEDED as needed for Pain 25 08October 31, 2018 November 04, 2018 12:00am November 10, 2018 12:09am Postoperative pain Other acute postprocedural pain Start: 10-31-2018 End: 11-10-2018 take 1 tablet by mouth every six hours as needed Oxycodone-Acetaminophen Discontinued 1 - 2 TABLET PO EVERY 6 HOURS NEEDED 25 08October 31, 2018 4:18pm November 10, 2018 12:09am baclofen 10 mg oral tablet (11 sources) gamma-Aminobutyric Acid-ergic Agonist Start: 10-06-2017 take 1 tablet by mouth three times daily for muscle spasms BACLOFEN 10 MG TABLET BACLOFEN 10 MG TABLET, take 1 tablet by mouth three times a day if needed for muscle spasm Start Date: 05/29/23 Status: Ordered Breo Ellipta 200 mcg-25 mcg/inh inhalation powder (10 sources) Start: 11-15-2022 End: 03-15-2023 Breo Ellipta 200 mcg-25 mcg/inh inhalation powder Dose = 1 puff(s), Inhalation, Daily, D/c previous 100mcg dose and change to 200mcg dose, # 1 EA, 3 Refill(s), [facility]acy: [facility] #[id number], 157.5, cm, 11/15/22 8:45:00 EDT, Height, kg, 11/15/22 8:45:00 EDT, Dosing Weight Start Date: 11/15/22 Stop Date: 03/15/23 Status: Ordered cephalexin 500 mg oral capsule (11 sources) Cephalosporin Antibacterial Start: 03-05-2019 End: 04-09-2020 take 1 capsule by mouth every six hours Cephalexin 500 MG capsule Discontinued 500 mg PO EVERY 6 HOURS 40 0 March 05, 2019 1:00am April 09, 2020 11:28am clonazePAM 1 mg oral tablet (13 sources) Benzodiazepine Start: 01-08-2015 End: 04-09-2020 take 0.5 mg by mouth three times daily as needed for anxiety Clonazepam 1 MG tablet Discontinued 0.5 mg PO 3 TIMES DAILY NEEDED as needed for Anxiety January 08, 2015 12:00am April 09, 2020 11:28am Start: 01-08-2015 End: 04-09-2020 take 0.5 mg by mouth three times daily as needed Clonazepam Discontinued 0.5 MG PO 3 TIMES DAILY NEEDED January 08, 2015 4:57pm April 09, 2020 11:28am clonazePAM (KLON OPIN) 1 MG tablet Take 5 mg by mouth. 0 Active DULoxetine 30 mg delayed release oral capsule (17 sources) Serotonin and Norepinephrine Reuptake Inhibitor Start: 03-05-2019 End: 04-09-2020 take 1 capsule by mouth once daily Duloxetine 30 MG capsule Discontinued 30 mg PO DAILY March 05, 2019 1:00am April 09, 2020 11:28am Start: 04-17-2018 take 2 capsules by m outh once daily DULoxetine (CYMBALTA) 60 MG capsule TAKE 2 (TWO) CAPSULES (120 MG TOTAL) BY MOUTH DAILY. 60 capsule 1 04/17/2018 Active Start: 02-01-2018 take 2 capsules by m outh once daily DULoxetine (CYMBALTA) 60 MG capsule Take 2 (two) capsules (120 mg total) by mouth daily. 60 capsule 1 02/01/2018 Active DULoxetine (CYMB ELHAM) 60 MG capsule Take 60 mg by mouth. Active ergocalciferol 1.25 mg oral capsule (4 sources) Provitamin D2 Compound Start: 06-23-2021 End: 12-20-2021 take 1 capsule by mouth every week ergocalciferol 50,000 unit capsule (VITAMIN D2, DRISDOL) Take 1 capsule by mouth one time a week. 12 capsule 1 06/23/2021 10/12/2021 Discontinued Comment on above: Take 1 capsule by mo uth one time a week. esomeprazole 20 mg delayed release oral capsule (20 sources) Proton Pump Inhibitor Start: 04-09-2020 End: 09-02-2024 take 1 capsule by mouth once daily Esomeprazole Magnesium (Nexium) 20 mg capsule,delayed release(DR/EC) Discontinued 20 mg PO DAILY April 09, 2020 1:00am September 02, 2024 3:03pm Comment on above: Take 20 mg by mouth once daily. lidocaine 0.05 mg/mg medicated patch (20 sources) Antiarrhythmic, Amide Local Anesthetic Start: 05-10-2021 End: 06-09-2021 lidocaine 5% topical patch Apply 2 patch(es), Transdermal, Daily, # 60 patch(es), 0 Refill(s), [facility]: [facility], 160.4, cm, 05/10/21 11:09:00 EST, Height, 63.7, kg, 05/10/21 11:09:00 EST, Dosing Weight Start Date: 05/10/21 Stop Date: 06/09/21 Status: Ordered Start: 11-22-2018 End: 11-22-2018 lidocaine PF 1 % injection 1 mL methocarbamol 500 mg oral tablet (20 sources) Muscle Relaxant Start: 02-19-2021 End: 09-02-2024 take 1 tablet by mouth three times daily as needed for muscle spasms Methocarbamol 500 mg tablet Discontinued 500 mg PO 3 TIMES DAILY NEEDED as needed for Spasms May 24, 2022 1:00am September 02, 2024 3:01pm Comment on above: Take 500 mg by mouth three times daily. triamcinolone acetonide 40 mg/ml injectable suspension (8 sources) Corticosteroid Start: 04-09-2020 End: 04-09-2020 Kenalog (triamcinolone acetonide) 40 mg/mL suspension for injection Discontinued 20 MG INTRAARTIC ONCE 0.5 April 09, 2020 11:20am April 09, 2020 11:55am Start: 09-03-2019 End: 09-03-2019 Kenalog (triamcinolone aceto nide) 40 mg/mL suspension for injection Discontinued 20 MG INTRAARTIC ONCE 0.5 September 03, 2019 1:20pm September 03, 2019 1:33pm Start: 01-24-2019 End: 01-24-2019 Kenalog (triamcinolone aceto nide) 40 mg/mL suspension for injection Discontinued 20 MG INTRAARTIC ONCE 0.5 January 24, 2019 12:42pm January 24, 2019 4:00pm Problems Active Problems Problem Classification Problem Date Documented Da te Episodic/Chronic Abdominal pain (20 sources) Abdominal pain; Translations: [Unspecified abdominal pain] Onset: 0 Resolved: 1 01-04-2010 Episodic Adjustment disorders (3 sources) Adjustment disorder, unspecified; Translations: [Adjustment disorder with depressed mood] Onset: 8 11-16-2017 Chronic Anxiety disorders (20 sources) Posttraumatic stress disorder; Translations: [Anxiety] Onset: 8 11-16-2017 Chronic Calculus of urinary tract (20 sources) Kidney stone 07-24-2019 Episodic Cancer of thyroid (20 sources) Malignant tumor of thyroid gland; Translations: [Malignant neoplasm of thyroid gland] Onset: 1 12-08-2017 Chronic Cardiac dysrhythmias (20 sources) Palpitations; Translations: [Palpitations] 05-30-2022 Episodic Chronic obstructive pulmonary disease and bronchiectasis (20 sources) Chronic obstructive lung disease; Translations: [Pulmonary emphysema] Onset: 0 Resolved: 0 12-08-2017 Chronic Developmental disorders (2 sources) Developmental academic disorder; Translations: [Learning Disability] Onset: 8 02-13-2018 Chronic Disorders of lipid metabolism (20 sources) Mixed hyperlipidemia; Translations: [Mixed hyperlipidemia] Onset: 0 08-25-2009 Chronic Esophageal disorders (20 sources) Gastroesophageal reflux disease; Translations: [Gastroesophageal reflux disease without esophagitis] Onset: 8 12-08-2017 Chronic Essential hypertension (20 sources) Essential hypertension; Translations: [Essential (primary) hypertension] Chronic Gastritis and duodenitis (20 sources) Acute gastritis; Translations: [Acute gastritis without bleeding] Onset: 0 Resolved: 1 01-06-2012 Episodic Genitourinary symptoms and ill-defined conditions (20 sources) Urinary incontinence 12-23-2019 Chronic Headache; including migraine (11 sources) Migraine; Translations: [Migraine, unspecified, not intractable, without status migrainosus] Onset: 1 12-03-2010 Chronic Heart valve disorders (20 sources) Mitral valve prolapse; Translations: [Non-rheumatic mitral valve prolapse] 07-02-2013 Chronic Menopausal disorders (11 sources) Menopausal symptom; Translations: [Menopausal and female climacteric states] Onset: 3 06-18-2012 Chronic Miscellaneous mental health disorders (11 sources) Psychosomatic factor in physical condition; Translations: [Psychological and behavioral factors associated with disorders or diseases classified elsewhere] Onset: 2 05-27-2011 Chronic Mood disorders (20 sources) Severe recurrent major depression without psychotic features; Translations: [Major depressive disorder] Onset: 9 Resolved: 9 11-16-2017 Chronic Nausea and vomiting (20 sources) Nausea and vomiting; Translations: [Nausea with vomiting, unspecified] 01-05-2014 Episodic Nonmalignant breast conditions (20 sources) Cyst of breast; Translations: [Pain of breast] 04-01-2020 Episodic Nonspecific chest pain (20 sources) Chest pain; Translations: [Chest pain, unspecified] Onset: 0 Resolved: 0 05-24-2022 Episodic Nutritional deficiencies (20 sources) Vitamin D deficiency; Translations: [Vitamin D deficiency, unspecified] Onset: 1 03-04-2011 Chronic Nutritional deficiencies (20 sources) Cobalamin deficiency; Translations: [Deficiency of other specified B group vitamins] Onset: 2 Episodic Osteoarthritis (20 sources) Osteoarthritis; Translations: [Unspecified osteoarthritis, unspecified site] Onset: 1 09-24-2013 Chronic Osteoporosis (12 sources) Disuse osteoporosis; Translations: [Other osteoporosis without current pathological fracture] Onset: 2 06-21-2021 Chronic Other bone disease and musculoskeletal deformities (9 sources) Idiopathic scoliosis of thoracic spine; Translations: [Other idiopathic scoliosis, thoracic region] Onset: 2 Chronic Other bone disease and musculoskeletal deformities (1 source) Osteopenia 01-29-2025 Episodic Other connective tissue disease (20 sources) Fibromyositis 09-24-2013 Episodic Other connective tissue disease (20 sources) Foot pain 12-02-2020 Episodic Other connective tissue disease (20 sources) Fibromyalgia; Translations: [Fibromyalgia] Onset: 1 2010 Episodic Other connective tissue disease (13 sources) Pain in left lower limb; Translations: [Pain in left leg] 07-18-2018 Episodic Other connective tissue disease (20 sources) Pain in right arm 08-22-2022 Episodic Other connective tissue disease (2 sources) Swelling of left lower limb 04-26-2023 Episodic Other connective tissue disease (4 sources) Muscle weakness of upper limb 07-01-2024 Episodic Other connective tissue disease (1 source) Pain in lower limb 11-20-2024 Episodic Other disorders of stomach and duodenum (11 sources) Gastroparesis syndrome; Translations: [Gastroparesis] 01-04-2010 Episodic Other ear and sense organ disorders (11 sources) Hearing disorder; Translations: [Unspecified hearing loss, unspecified ear] 05-09-2014 Chronic Other gastrointestinal disorders (20 sources) Irritable bowel syndrome; Translations: [Irritable bowel syndrome without diarrhea] 04-01-2020 Chronic Other gastrointestinal disorders (20 sources) Incontinence of feces; Translations: [Alteration in bowel elimination] 12-20-2022 Episodic Other gastrointestinal disorders (20 sources) Chronic constipation 07-24-2019 Episodic Other gastrointestinal disorders (20 sources) Abdominal mass 11-15-2022 Episodic Other gastrointestinal disorders (20 sources) Liquid stool 12-20-2022 Episodic Other gastrointestinal disorders (1 source) Diarrhea 01-29-2025 Episodic Other hereditary and degenerative nervous system conditions (20 sources) Restless legs 07-02-2013 Chronic Other liver diseases (2 sources) Fatty (change of) liver, not elsewhere classified; Translations: [Fatty (change of) liver, not elsewhere classified] Onset: Chronic Other lower respiratory disease (20 sources) Multiple nodules of lung; Translations: [Other nonspecific abnormal finding of lung field] 04-01-2020 Episodic Other lower respiratory disease (20 sources) Rib pain 02-17-2022 Episodic Other lower respiratory disease (3 sources) Dyspnea; Translations: [Shortness of breath] Episodic Other nervous system disorders (2 sources) Other chronic pain; Translations: [Other chronic pain] Onset: 8 Chronic Other nervous system disorders (11 sources) Carpal tunnel syndrome; Translations: [Carpal tunnel syndrome, unspecified upper limb] Onset: 1 07-15-2010 Chronic Other nervous system disorders (11 sources) Chronic pain; Translations: [Other chronic pain] Onset: 1 2010 Chronic Other nervous system disorders (15 sources) Cervical myelopathy 08-04-2023 Chronic Other nervous system disorders (15 sources) Nerve root disorder 08-15-2023 Chronic Other nervous system disorders (5 sources) Paresthesia of hand 07-01-2024 Episodic Other nervous system disorders (2 sources) Anesthesia of skin; Translations: [Anesthesia of skin] Onset: 8 Episodic Other nervous system disorders (2 sources) Paresthesia of skin; Translations: [Paresthesia of skin] Onset: 8 Episodic Other nervous system disorders (16 sources) Paresthesia of left lower limb 07-04-2023 Episodic Other nervous system disorders (12 sources) Tremor 10-17-2023 Episodic Other nervous system disorders (2 sources) Carpal tunnel syndrome, bilateral upper limbs; Translations: [Carpal tunnel syndrome, bilateral upper limbs] Onset: 8 Other non-traumatic joint disorders (20 sources) Hip pain 07-12-2022 Episodic Other non-traumatic joint disorders (2 sources) Pain in right wrist; Translations: [Pain in right wrist] Onset: 8 Episodic Other non-traumatic joint disorders (2 sources) Pain in left wrist; Translations: [Pain in left wrist] Onset: 8 Episodic Other non-traumatic joint disorders (20 sources) Ankle pain; Translations: [Pain in unspecified ankle and joints of unspecified foot] Onset: 1 07-28-2020 Episodic Other non-traumatic joint disorders (20 sources) Knee pain 07-12-2022 Episodic Other non-traumatic joint disorders (20 sources) Clavicle pain 08-22-2022 Episodic Other non-traumatic joint disorders (20 sources) Pain radiating to right shoulder 08-22-2022 Episodic Other nutritional; endocrine; and metabolic disorders (3 sources) Hypomagnesemia 06-10-2024 Chronic Other nutritional; endocrine; and metabolic disorders (3 sources) Weight increased; Translations: [Abnormal weight gain] Onset: 1 10-06-2010 Episodic Other screening for suspected conditions (not mental disorders or infectious disease) (20 sources) Cardiovascular stress test abnormal; Translations: [Patient encounter status] Onset: 0 Resolved: 1 07-12-2022 Episodic Other skin disorders (20 sources) Lesion of face 04-05-2022 Episodic Other skin disorders (20 sources) Mass of thoracic structure 05-30-2022 Episodic Other skin disorders (19 sources) Facial swelling 04-26-2023 Episodic Other upper respiratory infections (20 sources) Pharyngitis 02-18-2023 Episodic Otitis media and related conditions (19 sources) Otitis media, unspecified, left ear; Translations: [Dysfunction of eustachian tube] Onset: 3 12-02-2020 Episodic Paralysis (5 sources) Paraparesis 05-27-2024 Chronic Residual codes; unclassified (13 sources) Tobacco user; Translations: [Nicotine dependence, unspecified, uncomplicated] Onset: 9 12-08-2017 Chronic Residual codes; unclassified (20 sources) Chronic back pain 09-24-2013 Episodic Residual codes; unclassified (20 sources) Flushing 07-24-2019 Episodic Residual codes; unclassified (20 sources) Tobacco user; Translations: [Tobacco use] 09-29-2021 Episodic Residual codes; unclassified (20 sources) Edema; Translations: [Edema, unspecified] 10-11-2022 Episodic Residual codes; unclassified (20 sources) Edema of lower extremity 11-15-2022 Episodic Residual codes; unclassified (20 sources) Postmenopausal state 12-20-2022 Episodic Residual codes; unclassified (4 sources) Family history of malignant neoplasm of pancreas 06-10-2024 Episodic Screening and history of mental health and substance abuse codes (5 sources) Ex-smoker; Translations: [Personal history of nicotine dependence] 05-29-2024 Episodic Spondylosis; intervertebral disc disorders; other back problems (20 sources) Degeneration of lumbosacral intervertebral disc; Translations: [Other intervertebral disc degeneration, lumbosacral region] Onset: 8 09-21-2023 Chronic Spondylosis; intervertebral disc disorders; other back problems (20 sources) Low back pain; Translations: [Pain in cervical spine] Onset: 9 Resolved: 1 09-25-2008 Episodic Spondylosis; intervertebral disc disorders; other back problems (5 sources) Spondylosis; intervertebral disc disorders; other back problems Sprains and strains (20 sources) Strain of back muscle 07-28-2020 Episodic Substance-related disorders (1 source) Cigarette smoker ; Translations: [Nicotine dependence, cigarettes, uncomplicated] 08-07-2023 Chronic Syncope (1 source) Syncope and collapse; Translations: [Syncope and collapse] Episodic Thyroid disorders (20 sources) Non-toxic uninodular goiter; Translations: [Nontoxic single thyroid nodule] Onset: 9 09-25-2008 Chronic Unclassified (3 sources) Unknown / UNK(Unknown) Onset: 7 Unclassified (20 sources) Patient encounter status 08-09-2021 Unclassified (20 sources) Pain of right breast 09-29-2021 Unclassified (2 sources) Osteoarthritis of right hip Unclassified (2 sources) Osteoarthritis of lumbar spine Unclassified (2 sources) Lumbar back pain with radiculopathy affecting right lower extremity Unclassified (3 sources) Osteoarthritis of lumbar spine Unclassified (1 source) M16.11 - Unilateral primary osteoarthritis, right hip Urinary tract infections (2 sources) Urinary tract infectious disease 07-02-2013 Episodic Viral infection (3 sources) Disease caused by 2019-nCoV 02-18-2023 Past or Other Problems Problem Classification Problem Date Documented Da te Episodic/Chronic Biliary tract disease (7 sources) Biliary dyskinesia; Translations: [Other specified diseases of gallbladder] Onset: 01-13-2010 Resolved: 11-25-2010 03-29-2021 Episodic Conditions associated with dizziness or vertigo (2 sources) Dizziness and giddiness; Translations: [Dizziness and giddiness] Onset: 03-02-2017 Episodic Esophageal disorders (13 sources) Esophagitis; Translations: [Esophagitis, unspecified] Onset: 01-06-2010 12-08-2017 Episodic Fluid and electrolyte disorders (11 sources) Hypokalemia; Translations: [Hypokalemia] Onset: 05-27-2024 11-22-2023 Episodic Malaise and fatigue (11 sources) Physical deconditioning; Translations: [Other malaise] Onset: 05-27-2011 05-27-2011 Episodic Other and unspecified benign neoplasm (13 sources) History of polyp of colon; Translations: [Personal history of colonic polyps] Onset: 08-05-2010 12-08-2017 Episodic Other and unspecified benign neoplasm (11 sources) Benign neoplasm of rectum and anal canal; Translations: [Benign neoplasm of rectum] Onset: 08-05-2010 08-05-2010 Episodic Other and unspecified benign neoplasm (7 sources) Benign neoplasm of colon; Translations: [Benign neoplasm of colon, unspecified] Onset: 06-11-2014 Resolved: 06-11-2014 Episodic Other bone disease and musculoskeletal deformities (20 sources) Costal chondritis; Translations: [Chondrocostal junction syndrome [Tietze]] Onset: 08-25-2009 08-25-2009 Episodic Other connective tissue disease (11 sources) Hand pain; Translations: [Pain in unspecified hand] Onset: 07-15-2010 07-15-2010 Episodic Other connective tissue disease (11 sources) Inflammatory disorder of extremity; Translations: [Pes anserinus tendinitis or bursitis] Onset: 09-05-2011 09-05-2011 Episodic Other connective tissue disease (11 sources) Trigger thumb of right hand; Translations: [Trigger thumb, right thumb] Onset: 01-05-2012 01-05-2012 Episodic Other connective tissue disease (7 sources) Enthesopathy of hip region; Translations: [Other specified enthesopathies of unspecified lower limb, excluding foot] Onset: 08-19-2008 Resolved: 08-25-2009 08-25-2009 Episodic Other ear and sense organ disorders (7 sources) Impacted cerumen; Translations: [Impacted cerumen, unspecified ear] Onset: 01-30-2009 Resolved: 08-25-2009 08-25-2009 Episodic Other gastrointestinal disorders (2 sources) Change in bowel habit; Translations: [Change in bowel habit] Onset: 11-17-2017 Episodic Other gastrointestinal disorders (2 sources) Full incontinence of feces; Translations: [Full incontinence of feces] Onset: 11-17-2017 Episodic Other gastrointestinal disorders (2 sources) Diarrhea, unspecified; Translations: [Diarrhea, unspecified] Onset: 12-26-2022 Episodic Other injuries and conditions due to external causes (11 sources) Injury of left knee; Translations: [Unspecified injury of left lower leg, initial encounter] Onset: 10-06-2010 10-06-2010 Episodic Other nervous system disorders (7 sources) Complex regional pain syndrome; Translations: [Complex regional pain syndrome I, unspecified] Onset: 03-22-2011 Resolved: 06-21-2021 06-21-2021 Chronic Other nervous system disorders (2 sources) Tremor, unspecified; Translations: [Tremor, unspecified] Onset: 05-27-2024 Episodic Other non-traumatic joint disorders (2 sources) Pain in left hip; Translations: [Pain in left hip] Onset: 11-17-2017 Episodic Other non-traumatic joint disorders (11 sources) Pain in right knee; Translations: [Pain in joint, lower leg] Onset: 05-20-2010 05-20-2010 Episodic Other non-traumatic joint disorders (1 source) Pain in right hip; Translations: [Pain in right hip] Onset: 09-02-2024 Episodic Other nutritional; endocrine; and metabolic disorders (9 sources) Weight gain; Translations: [Abnormal weight gain] Onset: 10-06-2010 10-06-2010 Episodic Other skin disorders (11 sources) Keloid scar; Translations: [Hypertrophic scar] Onset: 05-25-2011 05-25-2011 Episodic Residual codes; unclassified (11 sources) Insomnia; Translations: [Insomnia, unspecified] Onset: 06-18-2012 06-18-2012 Episodic Residual codes; unclassified (11 sources) Generalized aches and pains; Translations: [Pain, unspecified] Onset: 06-21-2021 06-21-2021 Episodic Superficial injury; contusion (13 sources) Contusion of knee; Translations: [Contusion of unspecified knee, initial encounter] Onset: 09-05-2011 09-05-2011 Episodic Unclassified (1 source) abnormal findings of the heart Onset: 01-03-2017 Unclassified (1 source) (B)SHLD/NECK PAIN Onset: 10-12-2016 Unclassified (1 source) Chronic midline thoracic back pain Unclassified (1 source) Bilateral wrist pain Unclassified (1 source) Carpal tunnel syndrome, bilateral Unclassified (7 sources) PMH - PAST MEDICAL HISTORY OF Resolved: 08-25-2009 08-25-2009 Results Test Name Value Interpretation Reference Range Facility Magnesiumon 02-12-2025 Magnesium [Mass/Vol] 1.8 mg/dL Normal 1.5-2.2 [facility] Comment on above: Performed By: #### L 102.5200, L501.9511 #### [facility] [address] [place], [address] Thyroid Stim Hormone (TSH)on 02-12-2025 TSH 1.400 uIU/mL Normal 0.300-4.20 0 [facility] Comment on above: Performed By: #### L 501.5200, L501.9520 #### [facility] [address] [place], [address] FT4on 01-29-2025 Free T4 [Mass/Vol] 0.91 ng/dL Normal 0.76-1.46 [facility] Comment on above: Performed By: #### F T4, TSH, LIPID ####[address] [place], [place] [address] LABORATORYOrdered By: iNck Hoover on 01-29-2025 Cholesterol [Mass/Vol] 238 mg/dL High 0 - 200 mg/dL AO ADM SS Comment on above: Interpretive Data: C holesterol Reference Interval: Less than 200 Desirable 200-239 Borderline high risk 240 and above High risk Cholesterol in HDL [Mass/Vol] 70 mg/dL High 40 - 60 mg/dL AO ADM SS Cholesterol in LDL [Mass/Vol] 124 mg/dL Normal 0 - 130 mg/dL AO ADM SS Triglyceride [Mass/Vol] 218 mg/dL High 0 - 150 mg/dL AO ADM SS Comment on above: Interpretive Data: T riglyceride Reference Interval: Less than 150 Normal 150-199 Borderline high risk 200-499 High risk 500 or higher Very high risk LABORATORYOrdered By: SYSTEM SYSTEM on 01-29-2025 Free T4 [Mass/Vol] 0.91 ng/dL Normal 0.76 - 1.46 ng/dL AO ADM SS TSH Qn 2.05 m[IU]/L Normal 0.36 - 3.74 mcIU/mL AO ADM SS LIPIDon 01-29-2025 Cholesterol [Mass/Vol] 238 mg/dL High 0-200 [facility] Comment on above: Result Comment: Chol esterol Reference Interval: Less than 200 Desirable 200-239 Borderline high risk 240 and above High risk Performed By: #### F T4, TSH, LIPID ####[address] [place], [place] [address] Cholesterol in HDL [Mass/Vol] 70 mg/dL High 40-60 [facility] Comment on above: Performed By: #### F T4, TSH, LIPID ####[address] [place], [place] [address] Cholesterol in LDL [Mass/Vol] 124 mg/dL Normal 0-130 [facility] Comment on above: Performed By: #### F T4, TSH, LIPID ####[address] [place], [place] [address] Triglyceride [Mass/Vol] 218 mg/dL High 0-150 [facility] Comment on above: Result Comment: Trig lyceride Reference Interval: Less than 150 Normal 150-199 Borderline high risk 200-499 High risk 500 or higher Very high risk Performed By: #### F T4, TSH, LIPID ####[address] [place], [place] [address] TSHon 01-29-2025 TSH Qn 2.05 m[IU]/L Normal 0.36-3.74 [facility] Comment on above: Performed By: #### F T4, TSH, LIPID ####[address] [place], [place] [address] Orthopedic Visit Reporton Orthopedic Visit Report [facility] [address] [place] [address] OFFICE VISIT Date of Service: 01/13/25 MR#: [id number] Acct: [id number] Name: MARYSE PISANO Rep #: [id number] : 1965 Provider: Dr. Tyler ford DO Age/Sex: 59/F Location: [facility] [place].REAL Status: Signed Intake Vital Signs 01/06/25 13:48 01/13/25 13:57 Height 5 ft 2 in 5 ft 2 in Weight: 172 lb 175 lb BMI 31.4 32.0 Intake Visit Reasons: RIGHT HIP Chief Complaint: Right hip pain Accompanied by: Significant Other Is patient in pain?: Yes (right hip ) Pain scale (1-10): 9 Allergies amitriptyline HCl (From Elavil) Allergy (Verified 01/13/25 13:56) Nausea aspirin (ASA) Allergy (Verified 01/13/25 13:56) Nausea bacitracin (From Neosporin ([id number])) Allergy (Verified 01/13/25 13:56) Rash bupropion HCl (From Wellbutrin) Allergy (Verified 01/13/25 13:56) Other etodolac (From Lodine) Allergy (Verified 01/13/25 13:56) Unknown ibuprofen Allergy (Verified 01/13/25 13:56) Unknown neomycin (From Neosporin ([id number]-[id number])) Allergy (Verified 01/13/25 13:56) Rash Penicillins (PCN) Allergy (Verified 01/13/25 13:56) Hives poison elis extract Allergy (Verified 01/13/25 13:56) Swelling poison oak extract Allergy (Verified 01/13/25 13:56) Swelling polymyxin B (From Neosporin ([id number]-[id number])) Allergy (Verified 01/13/25 13:56) Rash rofecoxib (From Vioxx) Allergy (Verified 01/13/25 13:56) Other varenicline (From Chantix) Allergy (Verified 01/13/25 13:56) Rash venom-honey bee (bee venom (honey bee)) Allergy (Verified 01/13/25 13:56) Swelling acetaminophen (From Vicodin) Adverse Reaction (Verified 01/13/25 13:56) Nausea/Vom/Diarrhea adhesive tape Adverse Reaction (Verified 01/13/25 13:56) NEEDS FOLLOW-UP gabapentin Adverse Reaction (Verified 01/13/25 13:56) Other hydrocodone (From Vicodin) Adverse Reaction (Verified 01/13/25 13:56) Nausea/Vom/Diarrhea Medications ???Medication ???Instructions ???Recorded ???Confirmed ???Type levothyroxine 75 mcg tablet 50 mcg PO DAILY 01/08/15 01/13/25 History albuterol sulfate 90 mcg/actuation 1 puff inhalation PRN PRN Asthma 04/29/20 01/13/25 History aerosol inhaler cimetidine 200 mg tablet 200 mg PO DAILY 04/29/20 01/13/25 History mometasone-formoterol HFA 100 100 mcg inhalation PRN PRN Asthma 04/29/20 01/13/25 History mcg-5 mcg/actuation aerosol inhaler omeprazole 40 mg capsule,delayed 40 mg PO QDAY 09/02/24 01/13/25 Hi story release metoprolol succinate 25 mg 25 mg PO QDAY 10/14/24 01/13/25 Hi story tablet,extended release 24 hr Have you fallen in the past year?: No PFSH Medical History Depression Acute sciatica Anxiety Fibromyalgia Emphysema lung COPD (chronic obstructive pulmonary disease) High blood pressure Surgical History History of ankle surgery History of placement of ear tubes History of reduction surgery of right breast Delivery by section Social History Smoking Status: Former smoker HPI RIGHT HIP Details: This documentation accurately reflects the service provided and the decisions made by me, Dr. Tyler Wang, DO 01/13/25921. Part of today???s visit was documented by [ ], acting as scribe. MARYSE PISANO is a 59 year old F new to me previously seen by Maile Coughlin medical history significant for not limited to tobacco abuse admits to sharing 5 cigarettes a day with her boyfriend, lumbar radiculopathy affecting right lower extremity here today for right hip pain patient is treating pain with 500mg tylenol every 4-6 hours, pain is described as deep, stabbing, aching. traveling down to the knee. She denies any numbness or tingling into her right hip. She did aquatic therapy which she wasnt able to do due to her pain. She takes gabapentin, tramadol, muscle relaxer and tylenol. She is unable to take NSAIDs due to nausea and vomiting. She denies any prior back surgery or back injury. She uses a rollator to ambulate because of the hip pain. She has had injections into her right hip with the most recent being a greater than 3 months ago. 01/06/2025 visit with Maile Coughlin:59 year old F here today for right hip MRI review. She states that she would like to go over the MRI results to discuss what the next step would be. She states that she did some physical therapy at [facility] back in December. Patient states that it was water therapy. She states that she, couldn't handle it. No noted improvement after PT. hip pain worse than last visit with locking. No new injury or falls. Back sx about the same, agg with standing, walking and aggravates R hip pain, Numbness to L thigh x (more content not included)... Normal [facility] Orthopedic Visit Reporton Orthopedic Visit Report [facility] [address] [place] [address] OFFICE VISIT Date of Service: 01/06/25 MR#: [id number] Acct: [id number] Name: MARYSE PISANO Rep #: [id number] : 1965 Provider: EMILY francois Age/Sex: 59/F Location: [facility] [place].[facility]AL Status: Signed Intake Vital Signs 12/11/24 14:23 01/06/25 13:48 Height 5 ft 2 in 5 ft 2 in Weight: 172 lb BMI 31.4 Intake Visit Reasons: RIGHT HIP Chief Complaint: Right hip MRI review Accompanied by: Is patient in pain?: Yes Pain scale (1-10): 8 Allergies amitriptyline HCl (From Elavil) Allergy (Verified 01/06/25 13:52) Nausea aspirin (ASA) Allergy (Verified 01/06/25 13:52) Nausea bacitracin (From Neosporin ([id number]-rvh-hqsla)) Allergy (Verified 01/06/25 13:52) Rash bupropion HCl (From Wellbutrin) Allergy (Verified 01/06/25 13:52) Other etodolac (From Lodine) Allergy (Verified 01/06/25 13:52) Unknown ibuprofen Allergy (Verified 01/06/25 13:52) Unknown neomycin (From Neosporin ([id number]-pmq-[id number])) Allergy (Verified 01/06/25 13:52) Rash Penicillins (PCN) Allergy (Verified 01/06/25 13:52) Hives poison elis extract Allergy (Verified 01/06/25 13:52) Swelling poison oak extract Allergy (Verified 01/06/25 13:52) Swelling polymyxin B (From Neosporin ([id number]-hux-[id number])) Allergy (Verified 01/06/25 13:52) Rash rofecoxib (From Vioxx) Allergy (Verified 01/06/25 13:52) Other varenicline (From Chantix) Allergy (Verified 01/06/25 13:52) Rash venom-honey bee (bee venom (honey bee)) Allergy (Verified 01/06/25 13:52) Swelling acetaminophen (From Vicodin) Adverse Reaction (Verified 01/06/25 13:52) Nausea/Vom/Diarrhea adhesive tape Adverse Reaction (Verified 01/06/25 13:52) NEEDS FOLLOW-UP gabapentin Adverse Reaction (Verified 01/06/25 13:52) Other hydrocodone (From Vicodin) Adverse Reaction (Verified 01/06/25 13:52) Nausea/Vom/Diarrhea Medications ???Medication ???Instructions ???Recorded ???Confirmed ???Type levothyroxine 75 mcg tablet 50 mcg PO DAILY 01/08/15 01/06/25 History albuterol sulfate 90 mcg/actuation 1 puff inhalation PRN PRN Asthma 04/29/20 01/06/25 History aerosol inhaler cimetidine 200 mg tablet 200 mg PO DAILY 04/29/20 01/06/25 History mometasone-formoterol HFA 100 100 mcg inhalation PRN PRN Asthma 04/29/20 01/06/25 History mcg-5 mcg/actuation aerosol inhaler omeprazole 40 mg capsule,delayed 40 mg PO QDAY 09/02/24 01/06/25 Hi story release metoprolol succinate 25 mg 25 mg PO QDAY 10/14/24 01/06/25 Hi story tablet,extended release 24 hr Have you fallen in the past year?: Yes [facility] Medical History Depression Acute sciatica Anxiety Fibromyalgia Emphysema lung COPD (chronic obstructive pulmonary disease) High blood pressure Surgical History History of ankle surgery History of placement of ear tubes History of reduction surgery of right breast Delivery by section Social History Smoking Status: Former smoker HPI RIGHT HIP Details: This documentation accurately reflects the service provided and the decisions made by me, EMILY Brannon 01/06/25 4009. Part of today???s visit was documented by Enedina Begum MA, acting as scribe. MARYSE PISANO is a 59 year old F here today for right hip MRI review. She states that she would like to go over the MRI results to discuss what the next step would be. She states that she did some physical therapy at [facility] back in December. Patient states that it was water therapy. She states that she, couldn't handle it. No noted improvement after PT. Agree with above, hip pain worse than last visit with locking. No new injury or falls. Back sx about the same, agg with standing, walking and aggravates R hip pain, Numbness to L thigh x 2 yrs (not previously mentioned), no improvement with injections. Denies loss of bowel or bladder control, saddle anesthesia or progressive paresthesias. Last cortisone injection hip about 1 yr ago, ablation to back July 2024 Hx osteopenia, unsure of when testing was completed and reports no recommended supplementation or medications at that time. Accompanied by mother and brother for today's visit who contribute to HPI and ongoing symptoms. Also inquiring about bilateral hand numbness and dropping things. ROS Const All systems reviewed are unremarkable except as noted in H and other (A O x 3, no apparent distress. No recent illness.) ENT Denies dizziness Card Denies chest pain, Denies dyspnea, Denies edema and Reports other (No palpitations) Resp Denies cough, Denies dyspnea and Reports other (No recent URI) GI Reports (more content not included)... Normal [facility] Magnetic resonance imaging r eportOrdered By: Nick Ballard on 01-04-2025 Study report [facility] Imaging Services [address] [place], [place] [id number] Spine Lumbar (Routine) MR#: [id number] Acct: [id number] Name: MARYSE PISANO Rep #: [id number] : 1965 F 59 From: Roni Ballard MD PCP: Christa Iverson NP-Joslyn Status: REG C MAYTE Study:Spine Lumbar (Routine) Date of Exam: 01/01/25 Exam# [id number] Ordering Dr: Sophie Coughlin COOK MANAGER-C PROCEDURE: SPINE LUMBAR (ROUTINE) 01/01/2025 REASON FOR EXAM: WORSENING LUMBAR PAIN, RADICULOPATHY TECHNIQUE: Procedure Code: MRISPL Modality: MR Procedure: SPINE LUMBAR (ROUTINE) COMPARISON: 09/02/2024 FINDINGS: Vertebrae: The vertebral bodies are normal height. There is no abnormal marrow signal. No compression fracture deformity seen. Alignment: No salome or retrolisthesis. No scoliosis. Conus Medullaris: Ends at L1. The spinal cord has a normal course caliber and signal. There is no evidence of a tethered cord or mass. L1-2: Mild disc bulge. Facet arthropathy and ligamentum flavum hypertrophy. Nocentral or foraminal stenosis. L2-3: Mild disc desiccation and disc bulge. Mild facet disease. No central or foraminal stenosis. L3-4: Mild disc bulge. Facet arthropathy and ligamentum flavum hypertrophy. Nocentral or foraminal stenosis L4-5: Mild disc desiccation and disc bulge. Facet arthropathy and ligamentum flavum hypertrophy. Mild central stenosis. No foraminal encroachment. L5-S1: Diffuse disc desiccation and small annular tear centrally. No central orforaminal stenosis. Facet arthropathy present. Sacrum: Unremarkable Retroperitoneal soft tissues are within normal limits. No aneurysm or lymphadenopathy present. MRI/Spine Lumbar (Routine) IMPRESSION: Mild multilevel degenerative disc disease as stated above. Mild central stenosis at L4-5. Multilevel facet arthropathy. Reading Location: [facility] CC: EMILY Iverson; EMILY Coughlin ~ Public Health Assistant: Signed [facility] Study report [facility] Imaging Services [address] [place] [address] [id number] Lower Ext Joint Only (Routine) MR#: [id number] Acct: [id number] Name: MARYSE PISANO Rep #: [id number] : 1965 F 59 From: Roni Ballard MD PCP: EMILY Frausto Status: BETO HU Study:Lower Ext Joint Only (Routine) Date of Exam: 01/01/25 Exam# [id number] Ordering Dr: Sophie Coughlin PROCEDURE: LOWER EXT JOINT ONLY (ROUTINE) 01/01/2025 REASON FOR EXAM: WORSENING L HIP PAIN, MULTIPLE BANDAR INJECTIONS TECHNIQUE: Procedure Code: MRILEJ Modality: MR Procedure: LOWER EXT JOINT ONLY (ROUTINE) Multiplanar and multisequence images were obtained without IV contrast administration. 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 There is no collapse of the subchondral bone. Advanced osteoarthritic changes are present in the right hip with marginal osteophytes and subchondral cystic changes affect in the acetabular roof. Subchondral edema present. No loose body. Limited views of the contralateral left hip reveal minimal degenerative changes with loss of cartilage in the femoral head. Joint space narrowing evident. No loose body or effusion. Intrinsic ligaments of the hip appear within normal limits. Slight atrophy seenalong the gluteus kyle muscles. Mild subcutaneous edema. Pelvic structures are within normal limits. Urinary bladder is normal. The uterus has been surgically removed. Loops of bowel are within normal limits. No adnexal mass seen. SI joints appear symmetrical. No edema of the sacrum. No sacral insufficiency fracture seen. MRI/Lower Ext Joint Only (Routine) IMPRESSION: Avascular necrosis of the right femoral head without collapse. Advanced osteoarthritic changes of the right hip. No loose body. Small right joint effusion. Mild degenerative changes of the left hip. No acute fracture. Reading Location: [id number] CC: EMILY Iverson; EMILY Coughlin ~ Public Health Assistant: Signed [facility] Lower Ext Joint Only (Routin e)on 01-01-2025 Lower Ext Joint Only (Routine) [facility] Imaging Services [address] [place] [address] [id number] Lower Ext Joint Only (Routine) MR#: [id number] Acct: [id number] Name: MARYSE PISANO Rep #: [id number] : 1965 F 59 From: Nick trinidad MD PCP: EMILY Frausto Status: REG CLI Study: Lower Ext Joint Only (Routine) Date of Exam: Exam# [id number] Ordering Dr: Maile Coughlin PROCEDURE: LOWER EXT JOINT ONLY (ROUTINE) 01/01/2025 REASON FOR EXAM: WORSENING L HIP PAIN, MULTIPLE BANDAR INJECTIONS TECHNIQUE: Procedure Code: MRILEJ Modality: MR Procedure: LOWER EXT JOINT ONLY (ROUTINE) Multiplanar and multisequence images were obtained without IV contrast administration. 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 There is no collapse of the subchondral bone. Advanced osteoarthritic changes are present in the right hip with marginal osteophytes and subchondral cystic changes affect in the acetabular roof. Subchondral edema present. No loose body. Limited views of the contralateral left hip reveal minimal degenerative changes with loss of cartilage in the femoral head. Joint space narrowing evident. No loose body or effusion. Intrinsic ligaments of the hip appear within normal limits. Slight atrophy seen along the gluteus kyle muscles. Mild subcutaneous edema. Pelvic structures are within normal limits. Urinary bladder is normal. The uterus has been surgically removed. Loops of bowel are within normal limits. No adnexal mass seen. SI joints appear symmetrical. No edema of the sacrum. No sacral insufficiency fracture seen. MRI/Lower Ext Joint Only (Routine) IMPRESSION: Avascular necrosis of the right femoral head without collapse. Advanced osteoarthritic changes of the right hip. No loose body. Small right joint effusion. Mild degenerative changes of the left hip. No acute fracture. Reading Location: [facility] CC: EMILY Iverson; EMILY Coughlin Public Health Assistant: Signed Normal [facility] Spine Lumbar (Routine)on Spine Lumbar (Routine) [facility] Imaging Services [address] [place] [id number] Spine Lumbar (Routine) MR#: [id number] Acct: [id number] Name: MARYSE PISANO Rep #: [id number] : 1965 F 59 From: Nick trinidad MD PCP: EMILY Frausto Status: REG CLI Study: Spine Lumbar (Routine) Date of Exam: 01/01/25 Exam# [id number] Ordering Dr: Maile Coughlin PROCEDURE: SPINE LUMBAR (ROUTINE) 01/01/2025 REASON FOR EXAM: WORSENING LUMBAR PAIN, RADICULOPATHY TECHNIQUE: Procedure Code: MRISPL Modality: MR Procedure: SPINE LUMBAR (ROUTINE) COMPARISON: 09/02/2024 FINDINGS: Vertebrae: The vertebral bodies are normal height. There is no abnormal marrow signal. No compression fracture deformity seen. Alignment: No salome or retrolisthesis. No scoliosis. Conus Medullaris: Ends at L1. The spinal cord has a normal course caliber and signal. There is no evidence of a tethered cord or mass. L1-2: Mild disc bulge. Facet arthropathy and ligamentum flavum hypertrophy. No central or foraminal stenosis. L2-3: Mild disc desiccation and disc bulge. Mild facet disease. No central or foraminal stenosis. L3-4: Mild disc bulge. Facet arthropathy and ligamentum flavum hypertrophy. No central or foraminal stenosis L4-5: Mild disc desiccation and disc bulge. Facet arthropathy and ligamentum flavum hypertrophy. Mild central stenosis. No foraminal encroachment. L5-S1: Diffuse disc desiccation and small annular tear centrally. No central or foraminal stenosis. Facet arthropathy present. Sacrum: Unremarkable Retroperitoneal soft tissues are within normal limits. No aneurysm or lymphadenopathy present. MRI/Spine Lumbar (Routine) IMPRESSION: Mild multilevel degenerative disc disease as stated above. Mild central stenosis at L4-5. Multilevel facet arthropathy. Reading Location: [facility] CC: EMILY Iverson; EMILY Coughlin Public Health Assistant: Signed Normal [facility] Orthopedic Visit Reporton Orthopedic Visit Report [facility] [address] [place] [address] OFFICE VISIT Date of Service: 12/11/24 MR#: [id number] Acct: [id number] Name: MARYSE PISANO Rep #: [id number] : 1965 Provider: EMILY francois Age/Sex: 59/F Location: [facility] Status: Signed Intake Vital Signs 10/14/24 13:23 12/11/24 14:23 Height 5 ft 2 in 5 ft 2 in Weight: 172 lb BMI 31.4 Intake Visit Reasons: RIGHT HIP Chief Complaint: Right hip follow up Accompanied by: Self Is patient in pain?: Yes Pain scale (1-10): 9 Allergies amitriptyline HCl (From Elavil) Allergy (Verified 12/11/24 14:26) Nausea aspirin (ASA) Allergy (Verified 12/11/24 14:26) Nausea bacitracin (From Neosporin ([id number])) Allergy (Verified 12/11/24 14:26) Rash bupropion HCl (From Wellbutrin) Allergy (Verified 12/11/24 14:26) Other etodolac (From Lodine) Allergy (Verified 12/11/24 14:26) Unknown ibuprofen Allergy (Verified 12/11/24 14:26) Unknown neomycin (From Neosporin ([id number])) Allergy (Verified 12/11/24 14:26) Rash Penicillins (PCN) Allergy (Verified 12/11/24 14:26) Hives poison elis extract Allergy (Verified 12/11/24 14:26) Swelling poison oak extract Allergy (Verified 12/11/24 14:26) Swelling polymyxin B (From Neosporin ([id number]-gts-fdllx)) Allergy (Verified 12/11/24 14:26) Rash rofecoxib (From Vioxx) Allergy (Verified 12/11/24 14:26) Other varenicline (From Chantix) Allergy (Verified 12/11/24 14:26) Rash venom-honey bee (bee venom (honey bee)) Allergy (Verified 12/11/24 14:26) Swelling acetaminophen (From Vicodin) Adverse Reaction (Verified 12/11/24 14:26) Nausea/Vom/Diarrhea adhesive tape Adverse Reaction (Verified 12/11/24 14:26) NEEDS FOLLOW-UP gabapentin Adverse Reaction (Verified 12/11/24 14:26) Other hydrocodone (From Vicodin) Adverse Reaction (Verified 12/11/24 14:26) Nausea/Vom/Diarrhea Medications ???Medication ???Instructions ???Recorded ???Confirmed ???Type levothyroxine 75 mcg tablet 50 mcg PO DAILY 01/08/15 12/11/24 History albuterol sulfate 90 mcg/actuation 1 puff inhalation PRN PRN Asthma 04/29/20 12/11/24 History aerosol inhaler cimetidine 200 mg tablet 200 mg PO DAILY 04/29/20 12/11/24 History mometasone-formoterol HFA 100 100 mcg inhalation PRN PRN Asthma 04/29/20 12/11/24 History mcg-5 mcg/actuation aerosol inhaler omeprazole 40 mg capsule,delayed 40 mg PO QDAY 09/02/24 12/11/24 Hi story release metoprolol succinate 25 mg 25 mg PO QDAY 10/14/24 12/11/24 Hi story tablet,extended release 24 hr Have you fallen in the past year?: Yes [facility] Medical History Depression Acute sciatica Anxiety Fibromyalgia Emphysema lung COPD (chronic obstructive pulmonary disease) High blood pressure Surgical History History of ankle surgery History of placement of ear tubes History of reduction surgery of right breast Delivery by section Social History Smoking Status: Former smoker HPI RIGHT HIP Details: This documentation accurately reflects the service provided and the decisions made by me, EMILY Brannon 12/11/24 8749. Part of today???s visit was documented by Enedina Begum MA, acting as scribe. MARYSE PISANO is a 59 year old F here today for right hip and low back pain follow up. Patient states that her pain is a 9 today. Patient has completed her PT with no improvements and slight worsening of the right hip pain since last visit here 3 months ago. Patient did attempt home exercises a few times, however she is intolerant secondary to pain and unsteady gait. She did incur a fall about a week ago where she fell forward and was able to catch herself with arms outstretched. Did not require ED evaluation. States everything hurts. No improvements with PT, aggravated hip and groin pain and low back. Baclofen and Tramadol, pregabalin- ran out of baclofen and Tramadol 1 week ago, normally prescribed through Dr. Damon, pain mgmt. Scheduled next week for R hip intraarticular bandar inj with pain mgmt. This will make the 4th or 5th cortisone inj to the hip in the last couple years. Hip most problematic at this time. June pr July had nerves burned to R lower back wiht Dr. Cole with some short term improvement, effects have worn off at this time. Last lumbar MRI years ago. States PT pt made little progress and should f/u with ortho and insurance should approve MRIs as previously requested. ROS Const All systems reviewed are unremarkable except as noted in H and other (A O x 3, no apparent distress. No recent illness.) ENT Denies dizziness Card Denies chest pain, (more content not included)... Normal [facility] PT D/C Summary (1)on 025 PT D/C Summary (1) [facility] [address] [place] [address] / REHABILITATION SERVICES DISCHARGE SUMMARY MR#: [id number] Acct: [id number] Name: MARYSE PISANO Rep #: [id number] : 1965 59 From: Freddie Nair PT, ATC Referring Dr.: EMILY Coughlin Status: REG RCR Insurance: [facility] SELF PAY INSURANCE Discharge Summary D/C summary: It has been my pleasure to treat MARYSE PISANO referred by EMILY Brannon, with the diagnosis of Right Hip Pain for a total of 6 visit(s). Discharge Date: Please see the following information for a summary of their discharge status. Subjective Subjective: I have made very little improvement Pain R HIP: Pain Intensity (Out of 10): 6 Overall Improvement % Improvement: 5 Objective Objective/Function: R hip pain ranges from 6-10/10 Pt is limited with all gait and transfers at this time secondary to pain. Pt has not made any significant improvements at this time. Goals Goal 1:: Patient will be I with HEP and progression Goal Progress: Progressing Goal 2:: Patient will ambulate >150 feet with a normalized gait pattern Goal Progress: Not Progressing Goal 3:: Patient will perform all transfer without pain for 1 week Goal Progress: Not Progressing Goal 4:: Patient will maintain proper posture t/o tx session to demo increased core s/s. Goal Progress: Progressing Goal 5:: Patient will report 80% improvement Goal Progress: Not Progressing Plan Plan: Discontinue, return to doctor. D/C Information d/c sentence: If there are questions or concerns regarding this patient's physical therapy, please feel free to call me at [phone]. Thank you for the referral of this patient. Sincerely, Freddie Nair, PT, ATC Balance/Gait/Functional tests Balance/Special Test Scores Lower Extremity Functional Score: 5 Improvement % Improvement: 5 12/03/24 1400 CC: EMILY Iverson; EMILY Coughlin [facility] Signed Normal [facility] DLDLon 11-04-2024 Direct LDL Cholesterol 64 mg/dL Normal 0-99 [facility] Comment on above: Order Comment: Added by Discern Result Comment: Dire ct LDL Cholesterol Reference Interval: Optimal: <100 mg/dL Near Optimal/above optimal: 100-129 mg/dL Borderline high: 130-159 mg/dL High: 160-189 mg/dL Very high: >=190 mg/dL Performed By: #### D LDL, LIPID ####[place] [address] LABORATORYOrdered By: Nick Hoover on 11-04-2024 Cholesterol [Mass/Vol] 233 mg/dL High 0 - 200 mg/dL AO ADM Comment on above: Interpretive Data: C holesterol Reference Interval: Less than 200 Desirable 200-239 Borderline high risk 240 and above High risk Cholesterol in HDL [Mass/Vol] 50 mg/dL Normal 40 - 60 mg/dL AO ADM SS Cholesterol in LDL [Mass/Vol] 64 mg/dL Normal 0 - 99 mg/dL AO ADM Comment on above: Interpretive Data: D irect LDL Cholesterol Reference Interval: Optimal: <100 mg/dL Near Optimal/above optimal: 100-129 mg/dL Borderline high: 130-159 mg/dL High: 160-189 mg/dL Very high: >=190 mg/dL LDL Cholesterol Not Valid Invalid Interpretation Code 0 - 130 AO ADM SS Comment on above: Result Comment: Trig lyceride >400 invalidates the calculated LDL. Triglyceride [Mass/Vol] 931 mg/dL High 0 - 150 mg/dL AO ADM SS Comment on above: Interpretive Data: T riglyceride Reference Interval: Less than 150 Normal 150-199 Borderline high risk 200-499 High risk 500 or higher Very high risk LIPIDon 11-04-2024 Cholesterol [Mass/Vol] 233 mg/dL High 0-200 [facility] Comment on above: Result Comment: Chol esterol Reference Interval: Less than 200 Desirable 200-239 Borderline high risk 240 and above High risk Performed By: #### D LDL, LIPID ####[facility] [place], [place] [address] Cholesterol in HDL [Mass/Vol] 50 mg/dL Normal 40-60 [facility] Comment on above: Performed By: #### D LDL, LIPID ####[facility] [place], [place] [address] LDL Cholesterol Not Valid Normal 0-130 [facility] Comment on above: Result Comment: Trig lyceride >400 invalidates the calculated LDL. Performed By: #### D LDL, LIPID ####[place] [id number] [place], [place] [address] Triglyceride [Mass/Vol] 931 mg/dL High 0-150 [facility] Comment on above: Result Comment: Trig lyceride Reference Interval: Less than 150 Normal 150-199 Borderline high risk 200-499 High risk 500 or higher Very high risk Performed By: #### D LDL, LIPID ####[facility] [place], [place] [address] Inital Evaluation (1) - PTon 10-22-2024 Inital Evaluation (1) - [facility] [address] [place] [address] / REHABILITATION SERVICES INITIAL EVALUATION MR#: [id number] Acct: [id number] Name: MARYSE PISANO Rep #: [id number] : 1965 58 From: Gini TURNERT Referring Dr.: EMILY Brannon Status: REG R Insurance: [facility] SELF PAY INSURANCE Patient's Visit Information Visit Information Visit Information: MARYSE PISANO is a 58 year old F referred to Physical Therapy by Maile Coughlin, COOK MANAGER-C with a diagnosis of Right Hip Pain. Date of Evaluation: 10/22/24 Physical Therapist: Gini Montes DPT Visit Plan Frequency: 2x /Week Duration: 4 Weeks Plan: Aquatic PT- focus on LE and core strength/stabilization- pain mgmt Subjective Subjective: Patient reports that her insurance won't pay for an MRI without PT. She has been having an issue with her back and right hip. The pain is so bad that she cries a lot with it and it goes from back all the way down the right leg. The pain has been going since the beginning of the year and gradually getting worse. She has been to the see the MD- she sees pain mgmt and they have done injections but they don't help. They are hopeful to do an MRI of her low back and her hip. She knows there is a lot of arthritis in her lumbar spine and right hip. Worst: 9/10 Agg: anything, lifting, bending, sitting, walking. Eases: nothing Best: 9/10. She is always at a 9/10. She describes her pain as sharp and shooting. Its always from her spine to her foot. When she goes to stand up and start walking she feels like her leg will give out on her. She uses a rollator all the time. Sleep: disturbed-hard to roll over. Work: not working. She has N/T in the right leg but it not as bad as the left leg but that has been going on for almost a year. No change in bowel or bladder. PMMHx/Meds: no change since saw ortho Objective Objective: Posture: forward head, rounded shoulders- is unable to correct due to pain Gait: rollator- decreased stance on the right LE- slow pierce HR/TR: able with weight shift to the left SLS: unable reports pain Sensation: WNL to gross touch to bilateral LE ROM: Lumbar: severe restriction in all planes, Right hip: Flexion: 90 degrees, Extn: neutral, IR/ER: neutral, Abd: 30 degrees, all with pain, knee: 0-120 degrees Strength: Core: poor, Hip: 3/5 in available range, Knee: 4/5 Ankle: 4+/5. Flex: HS: severe, Gastroc: severe Palpation: tender along lumbar spine, right gluts greater troch, quads and lateral knee joint Transfers: pt requires UE to move her right leg into supine position from sitting. She also had severe pain with tears after performing all transfers. All testing cause severe pain Balance/Special Test Scores Lower Extremity Functional Score: 20 Goals Goal 1:: Patient will be I with HEP and progression Goal Time Frame: 4-6 Weeks Goal 2:: Patient will ambulate >150 feet with a normalized gait pattern Goal Time Frame: 4-6 Weeks Goal 3:: Patient will perform all transfer without pain for 1 week Goal Time Frame: 4-6 Weeks Goal 4:: Patient will maintain proper posture t/o tx session to demo increased core s/s. Goal Time Frame: 4-6 Weeks Goal 5:: Patient will report 80% improvement Goal Time Frame: 4-6 Weeks Rehabilitation Potential Physical Therapy Diagnosis: Patient presents with decreased ROM, LE and core strength/stabilization, flex and muscular endurance leading to increased pain with ADL's. Rehabilitation Potential: Fair Anticipated Interventions Therapeutic Exercise to Include: Strength training, Endurance training, Balance training, Coordination, Agility training, Body mechanics, Postural training, Flexibilty training, Gait and locomotor training, Neuromotor development, In an aquatic setting, Dynamic Lumbar Stabilization and Scapular Strength/Stabilization For the Purpose of:: To improve muscle performance and motor function Text: Thank you for the opportunity to evaluate your patient. For Medicare and Medicare HMO plans, please review the plan of care and approve it. It will need to be FAXED BACK to us at [phone] for Medicare purposes. For Medicare only, by signing this I certify the plan of care. Please let me know if there are questions or concerns regarding this plan of care. Physician Signature: Date: 10/22/24 1547 CC: EMILY Iverson; EMILY Coughlin ELR Signed [facility] Inital Evaluation (1) - PT [facility] Physical Therapy [facility] [address] [place] [address]. [address] [place] [address] / REHABILITATION SERVICES INITIAL EVALUATION MR#: [id number] Acct: [id number] Name: MARYSE PISANO Rep #: [id number] : 1965 58 From: Gini Montes DPSil Referring Dr.: EMILY Brannon Status: REG R Insurance: [facility] SELF PAY INSURANCE Patient's Visit Information Visit Information Visit Information: MARYSE PISANO is a 58 year old F referred to Physical Therapy by EMILY Brannon with a diagnosis of Right Hip Pain. Date of Evaluation: 10/22/24 Physical Therapist: Gini Montes DPT Visit Plan Frequency: 2x /Week Duration: 4 Weeks Plan: Aquatic PT- focus on LE and core strength/stabilization- pain mgmt Subjective Subjective: Patient reports that her insurance won't pay for an MRI without PT. She has been having an issue with her back and right hip. The pain is so bad that she cries a lot with it and it goes from back all the way down the right leg. The pain has been going since the beginning of the year and gradually getting worse. She has been to the see the MD- she sees pain mgmt and they have done injections but they don't help. They are hopeful to do an MRI of her low back and her hip. She knows there is a lot of arthritis in her lumbar spine and right hip. Worst: 9/10 Agg: anything, lifting, bending, sitting, walking. Eases: nothing Best: 9/10. She is always at a 9/10. She describes her pain as sharp and shooting. Its always from her spine to her foot. When she goes to stand up and start walking she feels like her leg will give out on her. She uses a rollator all the time. Sleep: disturbed-hard to roll over. Work: not working. She has N/T in the right leg but it not as bad as the left leg but that has been going on for almost a year. No change in bowel or bladder. PMMHx/Meds: no change since saw ortho Objective Objective: Posture: forward head, rounded shoulders- is unable to correct due to pain Gait: rollator- decreased stance on the right LE- slow pierce HR/TR: able with weight shift to the left SLS: unable reports pain Sensation: WNL to gross touch to bilateral LE ROM: Lumbar: severe restriction in all planes, Right hip: Flexion: 90 degrees, Extn: neutral, IR/ER: neutral, Abd: 30 degrees, all with pain, knee: 0-120 degrees Strength: Core: poor, Hip: 3/5 in available range, Knee: 4/5 Ankle: 4+/5. Flex: HS: severe, Gastroc: severe Palpation: tender along lumbar spine, right gluts greater troch, quads and lateral knee joint Transfers: pt requires UE to move her right leg into supine position from sitting. She also had severe pain with tears after performing all transfers. All testing cause severe pain Balance/Special Test Scores Lower Extremity Functional Score: 20 Goals Goal 1:: Patient will be I with HEP and progression Goal Time Frame: 4-6 Weeks Goal 2:: Patient will ambulate >150 feet with a normalized gait pattern Goal Time Frame: 4-6 Weeks Goal 3:: Patient will perform all transfer without pain for 1 week Goal Time Frame: 4-6 Weeks Goal 4:: Patient will maintain proper posture t/o tx session to demo increased core s/s. Goal Time Frame: 4-6 Weeks Goal 5:: Patient will report 80% improvement Goal Time Frame: 4-6 Weeks Rehabilitation Potential Physical Therapy Diagnosis: Patient presents with decreased ROM, LE and core strength/stabilization, flex and muscular endurance leading to increased pain with ADL's. Rehabilitation Potential: Fair Anticipated Interventions Therapeutic Exercise to Include: Strength training, Endurance training, Balance training, Coordination, Agility training, Body mechanics, Postural training, Flexibilty training, Gait and locomotor training, Neuromotor development, In an aquatic setting, Dynamic Lumbar Stabilization and Scapular Strength/Stabilization For the Purpose of:: To improve muscle performance and motor function Text: Thank you for the opportunity to evaluate your patient. For Medicare and Medicare HMO plans, please review the plan of care and approve it. It will need to be FAXED BACK to us at [phone] for Medicare purposes. For Medicare only, by signing this I certify the plan of care. Please let me know if there are questions or concerns regarding this plan of care. Physician Signature: Date: 10/22/24 1547 CC: EMILY Iverson; EMILY Coughlin ELR Signed [facility] Orthopedic Visit Reporton Orthopedic Visit Report [facility] [address] [place] [address] [address] [place] [address] OFFICE VISIT Date of Service: 10/14/24 MR#: [id number] Acct: [id number] Name: MARYSE PISANO Rep #: [id number] : 1965 Provider: EMILY francois Age/Sex: 58/F Location: [facility].REAL Status: Signed Intake Vital Signs 09/02/24 13:58 10/14/24 13:23 Height 5 ft 2 in 5 ft 2 in Weight: 169 lb BMI 30.9 Intake Visit Reasons: RIGHT HIP Chief Complaint: Right hip pain Accompanied by: Self Is patient in pain?: Yes Pain scale (1-10): 8 Allergies amitriptyline HCl (From Elavil) Allergy (Verified 10/14/24 13:26) Nausea aspirin (ASA) Allergy (Verified 10/14/24 13:26) Nausea bacitracin (From Neosporin (ytl-ekm-dxlub)) Allergy (Verified 10/14/24 13:26) Rash bupropion HCl (From Wellbutrin) Allergy (Verified 10/14/24 13:26) Other etodolac (From Lodine) Allergy (Verified 10/14/24 13:26) Unknown ibuprofen Allergy (Verified 10/14/24 13:26) Unknown neomycin (From Neosporin (jne-hen-neeoh)) Allergy (Verified 10/14/24 13:26) Rash Penicillins (PCN) Allergy (Verified 10/14/24 13:26) Hives poison elis extract Allergy (Verified 10/14/24 13:26) Swelling poison oak extract Allergy (Verified 10/14/24 13:26) Swelling polymyxin B (From Neosporin (qvs-cml-qdrew)) Allergy (Verified 10/14/24 13:26) Rash rofecoxib (From Vioxx) Allergy (Verified 10/14/24 13:26) Other varenicline (From Chantix) Allergy (Verified 10/14/24 13:26) Rash venom-honey bee (bee venom (honey bee)) Allergy (Verified 10/14/24 13:26) Swelling acetaminophen (From Vicodin) Adverse Reaction (Verified 10/14/24 13:26) Nausea/Vom/Diarrhea adhesive tape Adverse Reaction (Verified 10/14/24 13:26) NEEDS FOLLOW-UP gabapentin Adverse Reaction (Verified 10/14/24 13:26) Other hydrocodone (From Vicodin) Adverse Reaction (Verified 10/14/24 13:26) Nausea/Vom/Diarrhea Medications ???Medication ???Instructions ???Recorded ???Confirmed ???Type levothyroxine 75 mcg tablet 50 mcg PO DAILY 01/08/15 10/14/24 History albuterol sulfate 90 mcg/actuation 1 puff inhalation PRN PRN Asthma 04/29/20 10/14/24 History aerosol inhaler cimetidine 200 mg tablet 200 mg PO DAILY 04/29/20 10/14/24 History mometasone-formoterol HFA 100 100 mcg inhalation PRN PRN Asthma 04/29/20 10/14/24 History mcg-5 mcg/actuation aerosol inhaler omeprazole 40 mg capsule,delayed 40 mg PO QDAY 09/02/24 10/14/24 Hi story release metoprolol succinate 25 mg 25 mg PO QDAY 10/14/24 10/14/24 Hi story tablet,extended release 24 hr Have you fallen in the past year?: No PFSH Medical History Depression Acute sciatica Anxiety Fibromyalgia Emphysema lung COPD (chronic obstructive pulmonary disease) High blood pressure Surgical History History of ankle surgery History of placement of ear tubes History of reduction surgery of right breast Delivery by section Social History Smoking Status: Former smoker HPI RIGHT HIP Details: This documentation accurately reflects the service provided and the decisions made by , Maile Coughlin NP-C 10/14/24 7269. Part of today???s visit was documented by Enedina Begum MA, acting as scribe. MARYSE PISANO is a 58 year old F here today for right hip follow up. Patient is here for a follow up on her right hip. She was unable to do an MRI because it was denied. Patient states that she hasn't done any physical therapy for her right hip. She hasn't had any recent injections since her last visit. Maryse is a pleasant 58-year-old presenting today for follow-up of right low back pain and right hip pain. Patient states symptoms remain about the same with some intermittent left thigh numbness and creasing. This was previously worked up by her PCP with EM[facility] approximately 1 year ago, she does not recall findings of the EMG report. This was done at an outside facility and no records in EHR to review. Patient states she has run out of her medications as written by pain management and has follow-up appointment later this week to resume. Mild aggravation since stopping medicines. Denies loss of bowel or bladder control, no saddle anesthesia. Reports she has had multiple cortisone injection since 3822-1129, mostly to her low back Nerve ablation low back June to July 2024 Does not recall any prior injections to the right hip. No recent injuries. ROS Const All systems reviewed are unremarkable except as noted in H and other (A O x 3, no apparent distress. No recent illness.) ENT Denies dizziness Card Denies chest pain, Denies dyspnea, Denies edema and Reports other (more content not included)... [facility] HIP, UNI W/ Pelvis 2-3 Views on 09-02-2024 HIP, UNI W/ Pelvis 2-3 Views [facility] Imaging Services [address] [place], [place] [id number] HIP, UNI W/ Pelvis 2-3 Views MR#: [id number] Acct: [id number] Name: MARYSE PISANO Rep #: [id number] : 1965 F 58 From: Jose Munguia MD PCP: EMILY Frausto Status: DEP AMB Study: HIP, UNI W/ Pelvis 2-3 Views Date of Exam: 05/28 Exam# [id number] Ordering Dr: Maile Coughlin COOK MANAGERFlaca PROCEDURE: LUMBAR SPINE 2 OR 3 VIEWS; HIP, UNI W/ PELVIS 2-3 VIEWS 09/02/2024 REASON FOR EXAM: RIGHT HIP PAIN; CHRONIC PAIN TECHNIQUE: 2 view(s) of the lumbar spine; frontal view of the pelvis with frontal and frogleg lateral views of the right hip COMPARISON: None FINDINGS: Lumbar spine: There are 5 aoe-nqt-dzzrlgt lumbar-type vertebral bodies. Vertebral body heights and alignment are maintained. Olso-xy-hhdqyihw multilevel disc space narrowing and facet arthrosis, worst at L4-5 and L5-S1. There is an ovoid density projecting in the abdomen to the right of L3 measuring 2.1 cm. Aortic atherosclerosis. Right hip: Near-complete joint space narrowing in the right hip with subchondral sclerosis. Mild narrowing of the left hip. Degenerative changes of the sacroiliac joints. RAD/HIP, UNI W/ Pelvis 2-3 Views IMPRESSION: 1. Jzns-ox-xccitdsa multilevel degenerative changes of the lumbar spine, worst at L4-5 and L5-S1. 2. Severe right hip osteoarthritis. 3. Ovoid density projecting in the abdomen, likely ingested contents. Reading Location: [id number] CC: EMILY Iverson; EMILY Coughlin Public Health Assistant: Signed [facility] Lumbar Spine 2 or 3 Viewson 09-02-2024 Lumbar Spine 2 or 3 Views [facility] Imaging Services [address] [place] [id number] Lumbar Spine 2 or 3 Views MR#: [id number] Acct: [id number] Name: MARYSE PISANO Rep #: [id number] : 1965 F 58 From: Jose Munguia MD PCP: EMILY Frausto Status: DEP AMB Study: Lumbar Spine 2 or 3 Views Date of Exam: Exam# [id number] Ordering Dr: Maile Coughlin COOK MANAGERFlaca PROCEDURE: LUMBAR SPINE 2 OR 3 VIEWS; HIP, UNI W/ PELVIS 2-3 VIEWS 09/02/2024 REASON FOR EXAM: RIGHT HIP PAIN; CHRONIC PAIN TECHNIQUE: 2 view(s) of the lumbar spine; frontal view of the pelvis with frontal and frogleg lateral views of the right hip COMPARISON: None FINDINGS: Lumbar spine: There are 5 svh-drx-xlaaoxw lumbar-type vertebral bodies. Vertebral body heights and alignment are maintained. Ckzq-rv-chsqcfse multilevel disc space narrowing and facet arthrosis, worst at L4-5 and L5-S1. There is an ovoid density projecting in the abdomen to the right of L3 measuring 2.1 cm. Aortic atherosclerosis. Right hip: Near-complete joint space narrowing in the right hip with subchondral sclerosis. Mild narrowing of the left hip. Degenerative changes of the sacroiliac joints. RAD/Lumbar Spine 2 or 3 Views IMPRESSION: 1. Woay-eh-wyclklha multilevel degenerative changes of the lumbar spine, worst at L4-5 and L5-S1. 2. Severe right hip osteoarthritis. 3. Ovoid density projecting in the abdomen, likely ingested contents. Reading Location: [facility] CC: EMILY Iverson; EMILY Coughlin Public Health Assistant: Signed [facility] Orthopedic Visit Reporton Orthopedic Visit Report [facility] [address] [place] [address] OFFICE VISIT Date of Service: 09/02/24 MR#: [id number] Acct: [id number] Name: MARYSE PISANO Rep #: [id number] : 1965 Provider: EMILY francois Age/Sex: 58/F Location: [facility].REAL Status: Signed Intake Vital Signs 05/24/22 17:52 09/02/24 13:58 Height 5 ft 2 in 5 ft 2 in Weight: 169 lb BMI 30.9 Intake Visit Reasons: RIGHT HIP Chief Complaint: Right hip pain Accompanied by: Self Is patient in pain?: Yes Pain scale (1-10): 8 Allergies amitriptyline HCl (From Elavil) Allergy (Verified 09/02/24 14:01) Nausea aspirin (ASA) Allergy (Verified 09/02/24 14:01) Nausea bacitracin (From Neosporin (nvk-ikx-ihxuq)) Allergy (Verified 09/02/24 14:01) Rash bupropion HCl (From Wellbutrin) Allergy (Verified 09/02/24 14:01) Other etodolac (From Lodine) Allergy (Verified 09/02/24 14:01) Unknown ibuprofen Allergy (Verified 09/02/24 14:01) Unknown neomycin (From Neosporin (neo-kgv-aiwkl)) Allergy (Verified 09/02/24 14:01) Rash Penicillins (PCN) Allergy (Verified 09/02/24 14:01) Hives poison elis extract Allergy (Verified 09/02/24 14:01) Swelling poison oak extract Allergy (Verified 09/02/24 14:01) Swelling polymyxin B (From Neosporin (jcm-sfm-cyjgy)) Allergy (Verified 09/02/24 14:01) Rash rofecoxib (From Vioxx) Allergy (Verified 09/02/24 14:01) Other varenicline (From Chantix) Allergy (Verified 09/02/24 14:01) Rash venom-honey bee (bee venom (honey bee)) Allergy (Verified 09/02/24 14:01) Swelling acetaminophen (From Vicodin) Adverse Reaction (Verified 09/02/24 14:01) Nausea/Vom/Diarrhea adhesive tape Adverse Reaction (Verified 09/02/24 14:01) NEEDS FOLLOW-UP gabapentin Adverse Reaction (Verified 09/02/24 14:01) Other hydrocodone (From Vicodin) Adverse Reaction (Verified 09/02/24 14:01) Nausea/Vom/Diarrhea Medications ???Medication ???Instructions ???Recorded ???Confirmed ???Type levothyroxine 75 mcg tablet 50 mcg PO DAILY 01/08/15 09/02/24 History albuterol sulfate 90 mcg/actuation 1 puff inhalation PRN PRN Asthma 04/29/20 09/02/24 History aerosol inhaler cimetidine 200 mg tablet 200 mg PO DAILY 04/29/20 09/02/24 History mometasone-formoterol HFA 100 100 mcg inhalation PRN PRN Asthma 04/29/20 09/02/24 History mcg-5 mcg/actuation aerosol inhaler citalopram 20 mg tablet 20 mg PO DAILY 05/24/22 09/02/24 H istory baclofen 10 mg tablet 10 mg PO QD-TID PRN muscle spasm 0 09/02/24 09/02/24 History omeprazole 40 mg capsule,delayed 40 mg PO QDAY 09/02/24 09/02/24 Hi story release pregabalin 75 mg capsule 75 mg PO BID 09/02/24 09/02/24 His tory tramadol 50 mg tablet 50 mg PO QD-TID PRN pain 09/02/24 09/02/24 History Have you fallen in the past year?: No PFSH Medical History Depression Acute sciatica Anxiety Fibromyalgia Emphysema lung COPD (chronic obstructive pulmonary disease) High blood pressure Surgical History History of ankle surgery History of placement of ear tubes History of reduction surgery of right breast Delivery by section Social History Smoking Status: Current every day smoker tobacco type: cigarettes HPI RIGHT HIP Details: This documentation accurately reflects the service provided and the decisions made by me, THOMAS BrannonC 09/02/24 6504. Part of today???s visit was documented by Enedina Begum MA, acting as scribe. MARYSE PISANO is a 58 year old F here today for right hip pain. Patient is having right hip pain. It starts at the side then goes to the groin area. At time the hip likes to lock up. The pain is severe and stabbing in nature. This has been going on for several months. It's progressively getting worse. Patient doesn't know how it happened, the pain just came on one day. Patient denies any right hip surgeries. Walking and standing makes the pain worse. Patient has had injections in the right hip. The injections didn't help, it made the pain worse. She went to Dr. Damon for the injections. She has been going to him since 2013. Patient's last visit was in July. Patient denies any diabetes, or blood thinners. Patient is a former smoker, she quit in August 2023. She denies any drug use. Patient states that her balance is off and on. She has good days and bad days. Agree with above. Maryse is a pleasant 58-year-old female here for initial orthopedic evaluation of right hip pain. Follows with Dr. Damon, pain management who has performed several cortisone injections over approximately the last 2-3 years to the right hip with no improvements over time. Denies any injur (more content not included)... [facility] US ABDOMEN LIMITEDon 025 US ABDOMEN LIMITED ORIGINAL EXAMINATION: RIGHT UPPER QUADRANT ULTRASOUND 08/14/2024 9:48 am COMPARISON: 11/16/2022 HISTORY: ORDERING SYSTEM PROVIDED HISTORY: Reason for Exam: tremor, focus on adrenals All images are recorded and archived. FINDINGS: LIVER: The liver demonstrates moderate diffuse increased echogenicity without evidence of intrahepatic biliary ductal dilatation. Liver measures 15.4 cm length. BILIARY SYSTEM: Gallbladder surgically absent. Common bile duct is within normal limits measuring 0.7 mm. RIGHT KIDNEY: The right kidney is grossly unremarkable without evidence of hydronephrosis. Right kidney measures 10.0 x 3.9 x 3.7 cm. PANCREAS: Visualized portions of the pancreas are unremarkable. OTHER: No evidence of right upper quadrant ascites. Evaluation demonstrates nonvisualization of both adrenal glands which is nonspecific. There was no adrenal megaly identified on prior CT scan of the chest performed 07/17/2024, where both adrenal glands were visualized. IMPRESSION: 1. Moderate fatty infiltration of the liver. 2. Status post cholecystectomy. 3. Nonvisualization of the adrenal glands. There is no adrenal megaly. Interpreted by: Preet Ingram DO Preliminary Report By: Preet Ingram DO Electronically signed By Preet Ingram DO Dictated Date: 08/14/2024 11:55:41 AM Prelim Date: 08/14/2024 12:02:17 PM Sign Date: 08/14/2024 12:02:17 PM Ordering Provider: CHRISTA IVERSON Normal [facility] B12on 08-12-2024 Cobalamin (Vitamin B12) [Mass/Vol] 421 pg/mL Normal 211-911 [facility] Comment on above: Performed By: #### B 12 ####[place] [address] LABORATORYOrdered By: SYSTEM SYSTEM on 08-12-2024 Cobalamin (Vitamin B12) [Mass/Vol] 421 pg/mL Normal 211 - 911 pg/mL AH ADM SS CT THORAX W/O CONTRASTon CT THORAX W/O CONTRAST ORIGINAL EXAMINATION: CT OF THE CHEST WITHOUT CONTRAST 07/17/2024 10:20 am TECHNIQUE: CT of the chest was performed without the administration of intravenous contrast. Multiplanar reformatted images are provided for review. Automated exposure control, iterative reconstruction, and/or weight based adjustment of the mA/kV was utilized to reduce the radiation dose to as low as reasonably achievable. COMPARISON: CT thorax 03/15/2023. HISTORY: ORDERING SYSTEM PROVIDED HISTORY: Reason for Exam: follow up lung nodules FINDINGS: Left thyroid lobe is surgically absent. Right thyroid lobe is unremarkable. Esophagus is normal in caliber. Heart is normal in size without pericardial effusion. Great vessels are normal in caliber. Minimal aortic atherosclerotic calcifications. No significant coronary artery calcifications. No pathologically enlarged mediastinal, hilar or axillary lymph nodes. Trachea and mainstem bronchi are patent. Moderate emphysema. Mild scattered bilateral pleuroparenchymal scarring greatest within the lung apices. No focal consolidation, pleural effusion or pneumothorax. There are stable areas of nodular scarring within the right upper lobe seen on series 4, images 16 through 18. Stable posterior right upper lobe 4 mm nodule (series 4, image 23). Stable anterior right middle lobe subpleural nodule measuring approximately 7 mm. Stable 7 mm right middle lobe pulmonary nodule (series 4, image 47). Several additional scattered tiny bilateral nodules are unchanged. No new or enlarging pulmonary nodules. Images through the upper abdomen are noncontributory. No aggressive osseous lesions. Mild multilevel degenerative changes throughout the visualized spine. IMPRESSION: Multiple stable pulmonary nodules. Moderate emphysema. Given the presence of pulmonary emphysema, an independent risk factor for lung cancer, consider evaluating the patient for a low-dose CT lung cancer screening program. Interpreted by: Lm Gómez Preliminary Report By: Lm Gómez Electronically signed By Lm Gómez Dictated Date: 07/17/2024 11:35:42 AM Prelim Date: 07/17/2024 11:45:53 AM Sign Date: 07/17/2024 11:45:53 AM Ordering Provider: CHRISTA Merritt [facility] XR HIP 2-3 VIEWS RIGHTon XR HIP 2-3 VIEWS RIGHT ORIGINAL HISTORY: Pain COMPARISON: 01 May 2023 FINDINGS: There are no acute fractures or dislocations. Alignment is within normal limits. There is mild to moderate joint space narrowing. The soft tissues are unremarkable in appearance. IMPRESSION: No significant interval change. Interpreted by: Alden Pisano MD Preliminary Report By: Alden Pisano MD Electronically signed By Alden Pisano MD Dictated Date: 07/17/2024 11:25:28 AM Prelim Date: 07/17/2024 11:26:27 AM Sign Date: 07/17/2024 11:26:27 AM Ordering Provider: CHRISTA IVERSON [facility] XR KNEE 1 OR 2 VIEWS RIGHTon 07-17-2024 XR KNEE 1 OR 2 VIEWS RIGHT ORIGINAL EXAMINATION: TWO XRAY VIEWS OF THE RIGHT KNEE 07/17/2024 10:48 am COMPARISON: 05/04/2017 HISTORY: ORDERING SYSTEM PROVIDED HISTORY: Reason for Exam: right knee pain FINDINGS: No evidence of acute fracture or dislocation. No focal osseous lesion. No evidence of joint effusion. No focal soft tissue abnormality. IMPRESSION: No acute abnormality of the knee. Interpreted by: Preet Ingram DO Preliminary Report By: Preet Ingram DO Electronically signed By Preet Ingram DO Dictated Date: 07/17/2024 4:11:17 PM Prelim Date: 07/17/2024 4:11:46 PM Sign Date: 07/17/2024 4:11:46 PM Ordering Provider: CHRISTA IVERSON [facility] MRI BRAIN W/O CONTRASTon MRI BRAIN W/O CONTRAST ORIGINAL EXAMINATION: MRI OF THE BRAIN WITHOUT CONTRAST 07/16/2024 10:59 am TECHNIQUE: Multiplanar multisequence MRI of the brain was performed without the administration of intravenous contrast. COMPARISON: None. HISTORY: ORDERING SYSTEM PROVIDED HISTORY: Reason for Exam: progressive weakness FINDINGS: INTRACRANIAL STRUCTURES/VENTRICLES: There is no acute infarct. No mass effect or midline shift. No evidence of an acute intracranial hemorrhage. The ventricles and sulci are normal in size and configuration. The sellar/suprasellar regions appear unremarkable. The normal signal voids within the major intracranial vessels appear maintained. ORBITS: The visualized portion of the orbits demonstrate no acute abnormality. SINUSES: The visualized paranasal sinuses and mastoid air cells demonstrate no acute abnormality. BONES/SOFT TISSUES: The bone marrow signal intensity appears normal. The soft tissues demonstrate no acute abnormality. IMPRESSION: Unremarkable MRI examination of the brain. Interpreted by: Kendall Moon Preliminary Report By: Kendall Moon Electronically signed By Kendall Moon Dictated Date: 07/16/2024 11:00:51 AM Prelim Date: 07/16/2024 11:06:05 AM Sign Date: 07/16/2024 11:06:05 AM Ordering Provider: CHRISTA Merritt [facility] MAMMOGRAM DIAGNOSTIC RIGH T W/TOMOon 06-27-2024 MA MAMMOGRAM DIAGNOSTIC RIGHT W/CLARK ORIGINAL FROM: [facility] [address], [place] [address] PROCEDURE FOR: MARYSE BartlettSabas PISANO [address] [place] [address] Home: PID#: [id number] Exam#: [id number] : 1965 Age: 58 TO: CHRISTA IVERSON [facility] [address] [place] [address] Fax: NO FAX EXAMINATION: DIAGNOSTIC DIGITAL RIGHT BREAST MAMMOGRAM WITH TOMOSYNTHESIS, 06/27/2024 12:49 pm TECHNIQUE: Diagnostic mammography of the right breast was performed with tomosynthesis. 2D standard and 3D tomosynthesis combination imaging performed through the right breast. Computer aided detection was utilized in the interpretation of this exam. Current study was also evaluated with a Computer Aided Detection (CAD) system. COMPARISON: November 30, 2023, November 28, 2022, February 14, 2022, August 12, 2021 HISTORY: ORDERING SYSTEM PROVIDED HISTORY: Reason for Exam: right breast pain FINDINGS: BREAST DENSITY: The breasts are heterogeneously dense, which may obscure small masses. Postsurgical scarring is seen in the right breast. The patient indicates pain in the right breast, without suspicious mammographic finding. Benign densities are seen in the right breast. No other significant masses, calcifications, or other findings. IMPRESSION: No mammographic evidence of malignancy, specifically without suspicious mammographic finding to correlate with patient pain in the right breast.. Clinical follow up is recommended. The patient may return to annual mammographic screening. BIRADS: BI-RADS: 2: Benign RECALL: return to screening RECALL TYPE: mammo LETTER SENT: Normal BI-RADS 1 and 2 Interpreted by: Ninfa Andre Preliminary Report By: Ninfa Andre Electronically signed By Ninfa Andre Dictated Date: 06/27/2024 1:52:22 PM Prelim Date: 06/27/2024 1:53:51 PM Sign Date: 06/27/2024 1:53:51 PM Ordering Provider: CHRISTA IVERSON [employer] Operator: RADHA HOUSE RT(R)(M)(CT) CREPING MACHINE OPERATOR HELPER letter sent: Normal BI-RADS 1 and 2 Mammogram BI-RADS: 2 Benign Normal [facility] .GFRon 06-10-2024 Estimated Glomerular Filtration Rate 63 ml/min/1.73sqm Normal [facility] Comment on above: Result Comment: Stages of Chronic Kidney Disease (CKD) Stage Description eGFR(ml/min/1.73 sq.m.) CKD 1 Normal kidney function or >=90 normal kindney function with possible kidney damage (ex. Proteinuria) CKD 2 Kidney damage with mild loss 60-89 of kidney function CKD 3a Mild to moderate loss of kidney 45-59 function CKD 3b Moderate to severe loss of 30-44 of kindey function CKD 4 Severe loss of kidney function 15-29 CKD 5 Kidney failure <15 Note: (go live 2024) the eGFR calculation was updated to the 2020 CKD-EPI creatinine equation without a race factor to calculate the eGFR results. Performed By: #### L IPID, DLDL, GFR, MG, CMP ####[facility] [place], [place] [address] CMPon 06-10-2024 Albumin Level 3.9 G/dL Normal 3.5-5.0 [facility] Comment on above: Performed By: #### L IPID, DLDL, GFR, MG, CMP ####[place] [address] [place], [place] [address] Albumin/Globulin [Mass ratio] 1.3 {ratio} Normal 1.1-2.5 [facility] Comment on above: Performed By: #### L IPID, DLDL, GFR, MG, CMP ####[facility] [place], [place] [address] ALP [Catalytic activity/Vol] 114 U/L Normal 40-135 [facility] Comment on above: Performed By: #### L IPID, DLDL, GFR, MG, CMP ####[place] [address] [place], [place] [address] ALT [Catalytic activity/Vol] 20 U/L Normal 14-59 [facility] Comment on above: Performed By: #### L IPID, DLDL, GFR, MG, CMP ####[place] [address] [address] AST [Catalytic activity/Vol] 40 U/L Normal 10-40 [facility] Comment on above: Performed By: #### L IPID, DLDL, GFR, MG, CMP ####[place] [address] [place], [place] [address] Bili Total 0.6 mg/dL Normal 0.2-1.0 [facility] Comment on above: Result Comment: Use of this assay is not recommended for patients undergoing treatment with eltrombopag due to the potential for falsely elevated results. Performed By: #### L IPID, DLDL, GFR, MG, CMP ####[place] [address] [address] BUN/Creatinine Ratio 25 ratio Normal 7-27 [facility] Comment on above: Performed By: #### L IPID, DLDL, GFR, MG, CMP ####[place] [address] [place], [place] [address] Calcium [Mass/Vol] 9.4 mg/dL Normal 8.4-10.2 [facility] Comment on above: Performed By: #### L IPID, DLDL, GFR, MG, CMP ####[place] [address] [place], [place] [address] Chloride [Moles/Vol] 101 mmol/L Normal 98-107 [facility] Comment on above: Performed By: #### L IPID, DLDL, GFR, MG, CMP ####[place] [address] [place], [place] [address] CO2 [Moles/Vol] 25 mmol/L Normal 22-29 [facility] Comment on above: Performed By: #### L IPID, DLDL, GFR, MG, CMP ####[address] [place], [place] [address] Creatinine [Mass/Vol] 1.04 mg/dL High 0.55-1.02 [facility] Comment on above: Result Comment: Test ing performed on Siemens Dimension EXL analyzer using a modified kinetic Anderson technique. Performed By: #### L IPID, DLDL, GFR, MG, CMP ####[place] [address] [address] Electrolyte Balance 7.0 mEq/L Normal 4.0-15.0 [facility] Comment on above: Performed By: #### L IPID, DLDL, GFR, MG, CMP ####[place] [address] [address] Globulin 3.0 G/dL Normal 1.5-3.8 [facility] Comment on above: Performed By: #### L IPID, DLDL, GFR, MG, CMP ####[address] [address] Glucose [Mass/Vol] 106 mg/dL High 70-105 [facility] Comment on above: Performed By: #### L IPID, DLDL, GFR, MG, CMP ####[place] [address] [address] Potassium [Moles/Vol] 4.3 mmol/L Normal 3.5-5.1 [facility] Comment on above: Performed By: #### L IPID, DLDL, GFR, MG, CMP ####[address] [address] Sodium [Moles/Vol] 133 mmol/L Low 136-145 [facility] Comment on above: Performed By: #### L IPID, DLDL, GFR, MG, CMP ####[place] [address] [address] Total Protein 6.9 G/dL Normal 6.4-8.2 [facility] Comment on above: Performed By: #### L IPID, DLDL, GFR, MG, CMP ####[place] [place], [place] [address] Urea nitrogen [Mass/Vol] 26 mg/dL High 7-18 [facility] Comment on above: Performed By: #### L IPID, DLDL, GFR, MG, CMP ####[place] [address] [place], [place] [address] DLDLon 06-10-2024 Direct LDL Cholesterol 82 mg/dL Normal 0-99 [facility] Comment on above: Result Comment: Dire ct LDL Cholesterol Reference Interval: Optimal: <100 mg/dL Near Optimal/above optimal: 100-129 mg/dL Borderline high: 130-159 mg/dL High: 160-189 mg/dL Very high: >=190 mg/dL Performed By: #### L IPID, DLDL, GFR, MG, CMP ####[place] [address] [place], [place] [address] LIPIDon 06-10-2024 Cholesterol [Mass/Vol] 241 mg/dL High 0-200 [facility] Comment on above: Result Comment: Chol esterol Reference Interval: Less than 200 Desirable 200-239 Borderline high risk 240 and above High risk Performed By: #### L IPID, DLDL, GFR, MG, CMP ####[address] [place], [place] [address] Cholesterol in HDL [Mass/Vol] 62 mg/dL High 40-60 [facility] Comment on above: Performed By: #### L IPID, DLDL, GFR, MG, CMP ####[place] [address] [place], [place] [address] LDL Cholesterol Not Valid Normal 0-130 [facility] Comment on above: Result Comment: Trig lyceride >400 invalidates the calculated LDL. Performed By: #### L IPID, DLDL, GFR, MG, CMP ####[place] [place], [place] [address] Triglyceride [Mass/Vol] 603 mg/dL High 0-150 [facility] Comment on above: Result Comment: Trig lyceride Reference Interval: Less than 150 Normal 150-199 Borderline high risk 200-499 High risk 500 or higher Very high risk Performed By: #### L IPID, DLDL, GFR, MG, CMP ####[place] [address] [place], [place] [address] MGon 06-10-2024 Magnesium [Mass/Vol] 1.7 mg/dL Low 1.8-2.4 [facility] Comment on above: Performed By: #### L IPID, DLDL, GFR, MG, CMP ####[address] [place], [place] [address] CNOVon 05-29-2024 CNOV Office Visit (PULMWS ) MARYSE PISANO ([id number]) 1965 F Date Time Provider Department 05/29/24 11:00 AM MONY HARLEY PULMWS During your visit today, we recorded the following information about you: Weight 73.9 kg Mony Harley PA-C 05/29/2024 12:50 PM Signed Patient: Maryse Pisano PCP: Christa Iverson CNP, BATTALION CHIEF CC: follow up HPI: Maryse Pisano 58 year old obese female, [id number] former smoker (quit 08/2023) with PMH significant for GERD, Anxiety Disorder, History of Seizures, History of Thyroid Cancer, COPD, and Emphysema by CT of the chest. Last office visit 08/07/2023. Current maintenance therapy with Trelegy and as needed Albuterol. Does not use Albuterol secondary to feeling jittery. Today, patient reports daily cough, non-productive. Occasional wheezing. Exertional dyspnea walking inclines/steps and carrying groceries and laundry. Her SOB has improved since she stopped smoking. No fevers, chills, or night sweats. No unintended weight loss. No lower extremity edema. No recent hospitalizations or ED visits or upper respiratory infections. 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 Dysthymic disorder Depression (non-psychotic) Esophageal reflux Gastroesophageal reflux Esophagitis, unspecified Generalized anxiety disorder Anxiety, Generalized Hearing disorder Irritable bowel syndrome Irritable bowel Other emphysema (HCC) Emphysema PMH - PAST MEDICAL HISTORY OF PULMONARY NODULE PMH - PAST MEDICAL HISTORY OF SEIZURES Thyroid cancer (HCC) Allergies: Bees Swelling Chantix [Vareniclin* Rash Lice Shampoo [Pyret* Rash Comment:States gets blisters on hands and between fingers and has swelling of hands Wellbutrin [Bupropi* Mental Status Change Carafate [Sucralfat* GI Upset Amitriptyline GI Upset Asa [Salicylates] GI Upset Bacitracin Rash Biaxin [Clarithromy* GI Upset Chlorhexidine Rash Cipro [Ciprofloxaci* GI Upset Aurora Butter Creme * Other: See Comments Comment:breaks out hands Combivent [Ipratrop* Intolerance Comment:SHAKY Darvon [Propoxyphen* GI Upset Comment:RASH Erythromycin GI Upset Lodine [Etodolac] GI Upset Comment:RASH Motrin [Ibuprofen] GI Upset Naprosyn [Naproxen] GI Upset Neomycin Rash Penicillins Hives, GI Upset Poison Elis Rash Prednisone GI Upset Prozac [Fluoxetine * GI Upset Tape [Adhesive Tape* Rash, Swelling Comment:paper/surgical tape Vioxx [Rofecoxib] Anaphylaxis ipratropium-albuterol (DUONEB) 0.5 mg-3 mg(2.5 mg base)/3 mL nebu Inhale 3 mL as instructed every 4 hours as needed for wheezing/shortness of breath. traMADol (ULTRAM) 50 mg tablet Take 50 mg by mouth three times a day. baclofen 10 mg tablet Take 10 mg by mouth three times a day. pregabalin (LYRICA) 50 mg capsule Take 50 mg by mouth every 12 hours. aduecyafepp-pfkwafbap-vbyti ter (TRELEGY ELLIPTA) 100-62.5-25 mcg inhalation powder Inhale 1 Puff as instructed once daily. albuterol HFA (PROAIR HFA) 90 mcg/actuation inhaler Inhale 2 Puffs as instructed every 4 hours as needed for wheezing/shortness of breath. esomeprazole (NEXIUM) 20 mg capsule Take 20 mg by mouth once daily. levothyroxine (SYNTHROID) 50 mcg tablet Take 50 mcg by mouth once daily. Lactobacillus acidophilus (ACIDOPHILUS ORAL) Take by mouth. cimetidine (TAGAMET HB) 200 mg tablet Take 200 mg by mouth daily at bedtime. Social History Tobacco Use Smoking status: Every Day Current packs/day: 2.00 Average packs/day: 2.0 packs/day for 30.0 years (60.0 ttl pk-yrs) Types: Cigarettes Smokeless tobacco: Never Tobacco comments: recently started smoking again. Up to 2 ppd Vaping Use Vaping status: Former Substance Use Topics Alcohol use: No Drug use: No Family History Problem Relation Age of Onset Heart Mother MVP Psychiatry Mother BIPOLAR Arrhythmia Mother Heart Father panreatic cancer other (Atrial fibrillation) Father Cancer Sister thyroid other (congestive heart failure) Sister Asthma Brother COPD Maternal Grandmother of COPD COPD Maternal Grandfather of COPD other (goiters [Other]) Paternal Grandmother Allergies Daughter pollen Colon Cancer Maternal Uncle other (goiters [Other]) Paternal Aunt other (lung cancer [Other]) Other uncle PAST SURGICAL HISTORY Procedure Laterality Date APPENDECTOMY 04/03/2004 laparoscopic , LOW CERV, IN-HOSP CAR 07/18/1991 DELIVERY ONLY 04/03/1991 , low cervical COLONOSCOPY FLX DX W/COLLJ SPEC WHEN PFRMD 11/28/2008 Colonoscopy / Wong COLONOSCOPY FLX DX W/COLLJ SPEC WHEN PFRMD 08/05/2010 Colonoscopy COLONOSCOPY FLX DX W/COLLJ SPEC WHEN PFRMD 06/11/2014 Colonosc (more content not included)... Normal [facility] .Auto Diffon 05-27-2024 Basophil, Absolute 0.0 10 3/mcL Normal 0.0-0.2 [facility] Comment on above: Performed By: #### C MP, TSHR, GFR, ANEU, LIPID, CBC, VIDH, MG, ADIFF #### [place] [address] [place], [place] [address] #### PTH #### [address] [address] Basophils/100 WBC (Bld) 0.7 % Normal 0.0-2.5 [facility] Comment on above: Performed By: #### C MP, TSHR, GFR, ANEU, LIPID, CBC, VIDH, MG, ADIFF #### [address] [address] #### PTH #### [address] [address] Eosinophil, Absolute 0.1 10 3/mcL Normal 0.0-0.7 [facility] [place] Comment on above: Performed By: #### C MP, TSHR, GFR, ANEU, LIPID, CBC, VIDH, MG, ADIFF #### [place] [address] #### PTH #### [address] [address] Eosinophils/100 WBC (Bld) 2.4 % Normal 0.0-7.0 [facility] Comment on above: Performed By: #### C MP, TSHR, GFR, ANEU, LIPID, CBC, VIDH, MG, ADIFF #### [place] [address] #### PTH #### [address] [address] Lymphocyte, Absolute 1.8 10 3/mcL Normal 0.9-4.3 [facility] [place] Comment on above: Performed By: #### C MP, TSHR, GFR, ANEU, LIPID, CBC, VIDH, MG, ADIFF #### [place] [address] #### PTH #### [address] [address] Lymphocytes/100 WBC (Bld) 41.1 % High 20.0-40.0 [facility] Comment on above: Performed By: #### C MP, TSHR, GFR, ANEU, LIPID, CBC, VIDH, MG, ADIFF #### [place] [address] #### PTH #### [address] [address] Monocyte, Absolute 0.4 10 3/mcL Normal 0.1-1.4 [facility] Comment on above: Performed By: #### C MP, TSHR, GFR, ANEU, LIPID, CBC, VIDH, MG, ADIFF #### [address] [address] #### PTH #### [address] [address] Monocytes/100 WBC (Bld) 10.2 % Normal 2.0-13.0 [facility] Comment on above: Performed By: #### C MP, TSHR, GFR, ANEU, LIPID, CBC, VIDH, MG, ADIFF #### [address] [address] #### PTH #### [address] [address] Neutrophils/100 WBC (Bld) 45.6 % Low 50.0-75.0 [facility] Comment on above: Performed By: #### C MP, TSHR, GFR, ANEU, LIPID, CBC, VIDH, MG, ADIFF #### [address] [address] #### PTH #### [address] [address] .GFRon 05-27-2024 Estimated Glomerular Filtration Rate 69 ml/min/1.73sqm Normal [facility] Comment on above: Result Comment: Stages of Chronic Kidney Disease (CKD) Stage Description eGFR(ml/min/1.73 sq.m.) CKD 1 Normal kidney function or >=90 normal kindney function with possible kidney damage (ex. Proteinuria) CKD 2 Kidney damage with mild loss 60-89 of kidney function CKD 3a Mild to moderate loss of kidney 45-59 function CKD 3b Moderate to severe loss of 30-44 of kindey function CKD 4 Severe loss of kidney function 15-29 CKD 5 Kidney failure <15 Note: (go live 2024) the eGFR calculation was updated to the 2020 CKD-EPI creatinine equation without a race factor to calculate the eGFR results. Performed By: #### C MP, TSHR, GFR, ANEU, LIPID, CBC, VIDH, MG, ADIFF ####[address] [address]#### PTH ####[address] [address] .NEUABSon 05-27-2024 Neutrophil, Absolute 2.0 10 3/mcL Low 2.3-8.1 [facility] [place] Comment on above: Performed By: #### C MP, TSHR, GFR, ANEU, LIPID, CBC, VIDH, MG, ADIFF #### [place] [address] #### PTH #### [place] [address] CBCon 05-27-2024 Erythrocyte distribution width (RBC) [Ratio] 14.6 % Normal 11.5-15.5 [facility] Comment on above: Performed By: #### C MP, TSHR, GFR, ANEU, LIPID, CBC, VIDH, MG, ADIFF #### [place] [address] #### PTH #### [place] [address] Hematocrit (Bld) [Volume fraction] 36.6 % Normal 34.0-46.0 [facility] Comment on above: Performed By: #### C MP, TSHR, GFR, ANEU, LIPID, CBC, VIDH, MG, ADIFF #### [place] [address] #### PTH #### [place] [address] Hgb 12.1 G/dL Normal 12.0-16.0 [facility] Comment on above: Performed By: #### C MP, TSHR, GFR, ANEU, LIPID, CBC, VIDH, MG, ADIFF #### [place] [address] #### PTH #### [place] [id number] MCH (RBC) [Entitic mass] 30.3 pg Normal 27.0-33.0 [facility] Comment on above: Performed By: #### C MP, TSHR, GFR, ANEU, LIPID, CBC, VIDH, MG, ADIFF #### [address] [address] #### PTH #### [place] [address] MCHC 33.2 G/dL Normal 32.0-36.0 [facility] Comment on above: Performed By: #### C MP, TSHR, GFR, ANEU, LIPID, CBC, VIDH, MG, ADIFF #### [address] [address] #### PTH #### [place] [address] MCV (RBC) [Entitic vol] 91.1 fL Normal 80.0-99.0 [facility] Comment on above: Performed By: #### C MP, TSHR, GFR, ANEU, LIPID, CBC, VIDH, MG, ADIFF #### [address] [address] #### PTH #### [place] [address] Platelet 214 10 3/mcL Normal 150-450 [facility] Comment on above: Performed By: #### C MP, TSHR, GFR, ANEU, LIPID, CBC, VIDH, MG, ADIFF #### [place] [address] #### PTH #### [place] [address] Platelet mean volume (Bld) [Entitic vol] 7.3 fL Normal 6.6-10.5 [facility] Comment on above: Performed By: #### C MP, TSHR, GFR, ANEU, LIPID, CBC, VIDH, MG, ADIFF #### [place] [address] #### PTH #### [place] [id number] RBC 4.01 10 6/mcL Low 4.10-5.30 [facility] Comment on above: Performed By: #### C MP, TSHR, GFR, ANEU, LIPID, CBC, VIDH, MG, ADIFF #### [address] [address] #### PTH #### [place] [address] WBC 4.3 10 3/mcL Low 4.5-10.8 [facility] Comment on above: Performed By: #### C MP, TSHR, GFR, ANEU, LIPID, CBC, VIDH, MG, ADIFF #### [place] [address] #### PTH #### [place] [address] CMPon 05-27-2024 Albumin Level 3.8 G/dL Normal 3.5-5.0 [facility] Comment on above: Performed By: #### C MP, TSHR, GFR, ANEU, LIPID, CBC, VIDH, MG, ADIFF ####[place] [address]#### PTH ####[place] [address] Albumin/Globulin [Mass ratio] 1.4 {ratio} Normal 1.1-2.5 [facility] Comment on above: Performed By: #### C MP, TSHR, GFR, ANEU, LIPID, CBC, VIDH, MG, ADIFF ####[place] [address]#### PTH ####[place] [address] ALP [Catalytic activity/Vol] 108 U/L Normal 40-135 [facility] Comment on above: Performed By: #### C MP, TSHR, GFR, ANEU, LIPID, CBC, VIDH, MG, ADIFF ####[place] [address]#### PTH ####[address] [address] ALT [Catalytic activity/Vol] 21 U/L Normal 14-59 [facility] Comment on above: Performed By: #### C MP, TSHR, GFR, ANEU, LIPID, CBC, VIDH, MG, ADIFF ####[place] [address]#### PTH ####[place] [address] AST [Catalytic activity/Vol] 37 U/L Normal 10-40 [facility] Comment on above: Performed By: #### C MP, TSHR, GFR, ANEU, LIPID, CBC, VIDH, MG, ADIFF ####[place] [address]#### PTH ####[place] [address] Bili Total 0.9 mg/dL Normal 0.2-1.0 [facility] Comment on above: Result Comment: Use of this assay is not recommended for patients undergoing treatment with eltrombopag due to the potential for falsely elevated results. Performed By: #### C MP, TSHR, GFR, ANEU, LIPID, CBC, VIDH, MG, ADIFF ####[place] [address]#### PTH ####[place] [address] BUN/Creatinine Ratio 10 ratio Normal 7-27 [facility] Comment on above: Performed By: #### C MP, TSHR, GFR, ANEU, LIPID, CBC, VIDH, MG, ADIFF ####[place] [address]#### PTH ####[place] [address] Calcium [Mass/Vol] 9.3 mg/dL Normal 8.4-10.2 [facility] Comment on above: Performed By: #### C MP, TSHR, GFR, ANEU, LIPID, CBC, VIDH, MG, ADIFF ####[place] [address]#### PTH ####[place] [address] Chloride [Moles/Vol] 103 mmol/L Normal 98-107 [facility] Comment on above: Performed By: #### C MP, TSHR, GFR, ANEU, LIPID, CBC, VIDH, MG, ADIFF ####[place] [address]#### PTH ####[place] [address] CO2 [Moles/Vol] 23 mmol/L Normal 22-29 [facility] Comment on above: Performed By: #### C MP, TSHR, GFR, ANEU, LIPID, CBC, VIDH, MG, ADIFF ####[place] [address]#### PTH ####[place] [address] Creatinine [Mass/Vol] 0.96 mg/dL Normal 0.55-1.02 [facility] Comment on above: Result Comment: Test ing performed on Siemens Dimension EXL analyzer using a modified kinetic Anderson technique. Performed By: #### C MP, TSHR, GFR, ANEU, LIPID, CBC, VIDH, MG, ADIFF ####[place] [address]#### PTH ####[place] [address] Electrolyte Balance 10.0 mEq/L Normal 4.0-15.0 [facility] Comment on above: Performed By: #### C MP, TSHR, GFR, ANEU, LIPID, CBC, VIDH, MG, ADIFF ####[place] [address]#### PTH ####[place] [address] Globulin 2.7 G/dL Normal 1.5-3.8 [facility] Comment on above: Performed By: #### C MP, TSHR, GFR, ANEU, LIPID, CBC, VIDH, MG, ADIFF ####[place] [address]#### PTH ####[address] [address] Glucose [Mass/Vol] 98 mg/dL Normal 70-105 [facility] Comment on above: Performed By: #### C MP, TSHR, GFR, ANEU, LIPID, CBC, VIDH, MG, ADIFF ####[place] [address]#### PTH ####[address] [address] Potassium [Moles/Vol] 3.9 mmol/L Normal 3.5-5.1 [facility] Comment on above: Performed By: #### C MP, TSHR, GFR, ANEU, LIPID, CBC, VIDH, MG, ADIFF ####[place] [address]#### PTH ####[place] [address] Sodium [Moles/Vol] 136 mmol/L Normal 136-145 [facility] Comment on above: Performed By: #### C MP, TSHR, GFR, ANEU, LIPID, CBC, VIDH, MG, ADIFF ####[place] [address]#### PTH ####[place] [address] Total Protein 6.5 G/dL Normal 6.4-8.2 [facility] Comment on above: Performed By: #### C MP, TSHR, GFR, ANEU, LIPID, CBC, VIDH, MG, ADIFF ####[place] [address]#### PTH ####[address] [address] Urea nitrogen [Mass/Vol] 10 mg/dL Normal 7-18 [facility] Comment on above: Performed By: #### C MP, TSHR, GFR, ANEU, LIPID, CBC, VIDH, MG, ADIFF ####[address] [place], [place] [address]#### PTH ####[address] [address] LABORATORYOrdered By: SYSTEM SYSTEM on 05-27-2024 25-hydroxyvitamin D3 [Mass/Vol] 35.4 ng/mL Invalid Interpretation Code AO ADM SS Comment on above: Interpretive Data: I nterpretive Values Based on Total 25(OH) Vitamin D: Deficient <20 ng/mL Insufficient 20 - <30 ng/mL Sufficient 30-100 ng/mL Albumin BCP dye [Mass/Vol] 3.8 G/dL Normal 3.5 - 5.0 G/dL AO ADM SS Albumin/Globulin [Mass ratio] 1.4 {ratio} Normal 1.1 - 2.5 ratio AO ADM SS ALP [Catalytic activity/Vol] 108 U/L Normal 40 - 135 U/L AO ADM SS ALT With P-5'-P [Catalytic activity/Vol] 21 U/L Normal 14 - 59 U/L AO ADM SS AST With P-5'-P [Catalytic activity/Vol] 37 U/L Normal 10 - 40 U/L AO ADM SS Basophils (Bld) [#/Vol] 0.0 103/mcL Normal 0.0 - 0.2 10^3/mcL AO Workflow SS Basophils/100 WBC (Bld) 0.7 % Normal 0.0 - 2.5 % AO Workflow SS Bilirubin [Mass/Vol] 0.9 mg/dL Normal 0.2 - 1 .0 mg/dL AO ADM SS Comment on above: Interpretive Data: U se of this assay is not recommended for patients undergoing treatment with eltrombopag due to the potential for falsely elevated results. Calcium [Mass/Vol] 9.3 mg/dL Normal 8.4 - 10. 2 mg/dL AO ADM SS Chloride [Moles/Vol] 103 mmol/L Normal 98 - 10 7 mmol/L AO ADM SS CO2 [Moles/Vol] 23 mmol/L Normal 22 - 29 mmol/L AO ADM SS Creatinine [Mass/Vol] 0.96 mg/dL Normal 0.55 - 1.02 mg/dL AO ADM SS Comment on above: Interpretive Data: T esting performed on Siemens Dimension EXL analyzer using a modified kinetic Anderson technique. Electrolyte Balance 10.0 mEq/L Normal 4.0 - 15 .0 mEq/L AO ADM SS Eosinophil, Absolute 0.1 103/mcL Normal 0.0 - 0 .7 10^3/mcL AO Workflow SS Eosinophils/100 WBC (Bld) 2.4 % Normal 0.0 - 7.0 % AO Workflow SS Erythrocyte distribution width (RBC) [Ratio] 14.6 % Normal 11.5 - 15.5 % AO Workflow SS Estimated Glomerular Filtration Rate 69 ml/min/1.73sqm Invalid Interpretation Code AO Chemistry S Comment on above: Interpretive Data: Stages of Chronic Kidney Disease (CKD) Stage Description eGFR(ml/min/1.73 sq.m.) CKD 1 Normal kidney function or >=90 normal kindney function with possible kidney damage (ex. Proteinuria) CKD 2 Kidney damage with mild loss 60-89 of kidney function CKD 3a Mild to moderate loss of kidney 45-59 function CKD 3b Moderate to severe loss of 30-44 of kindey function CKD 4 Severe loss of kidney function 15-29 CKD 5 Kidney failure <15 Note: (go live 2024) the eGFR calculation was updated to the 2020 CKD-EPI creatinine equation without a race factor to calculate the eGFR results. Globulin 2.7 G/dL Normal 1.5 - 3.8 G/dL AO ADM SS Glucose [Mass/Vol] 98 mg/dL Normal 70 - 105 mg/dL AO ADM SS Hematocrit (Bld) [Volume fraction] 36.6 % Normal 34.0 - 46.0 % AO Workflow SS Hemoglobin (Bld) [Mass/Vol] 12.1 G/dL Normal 12.0 - 16.0 G/dL AO Workflow SS Lymphocytes (Bld) [#/Vol] 1.8 103/mcL Normal 0.9 - 4.3 10^3/mcL AO Workflow SS Lymphocytes/100 WBC (Bld) 41.1 % High 20.0 - 40.0 % AO Workflow SS Magnesium [Mass/Vol] 1.6 mg/dL Low 1.8 - 2 .4 mg/dL AO ADM SS MCH (RBC) [Entitic mass] 30.3 pg Normal 27.0 - 33.0 pg AO Workflow SS MCHC 33.2 G/dL Normal 32.0 - 36.0 G/dL AO Workflow SS MCV (RBC) [Entitic vol] 91.1 fL Normal 80.0 - 99.0 fL AO Workflow SS Monocytes (Bld) [#/Vol] 0.4 103/mcL Normal 0.1 - 1.4 10^3/mcL AO Workflow SS Monocytes/100 WBC (Bld) 10.2 % Normal 2.0 - 13.0 % AO Workflow SS Neutrophils (Bld) [#/Vol] 2.0 103/mcL Low 2.3 - 8.1 10^3/mcL AO Workflow SS Neutrophils/100 WBC (Bld) 45.6 % Low 50.0 - 75.0 % AO Workflow SS Parathyrin.intact [Mass/Vol] 54.3 pg/mL Normal 18.5 - 88.0 pg/mL AH ADM SS Platelet mean volume (Bld) [Entitic vol] 7.3 fL Normal 6.6 - 10.5 fL AO Workflow SS Platelets (Bld) [#/Vol] 214 103/mcL Normal 150 - 450 10^3/mcL AO Workflow SS Potassium [Moles/Vol] 3.9 mmol/L Normal 3.5 - 5.1 mmol/L AO ADM SS Protein [Mass/Vol] 6.5 G/dL Normal 6.4 - 8.2 G/dL AO ADM SS RBC (Bld) [#/Vol] 4.01 106/mcL Low 4.10 - 5.30 10^6/mcL AO Workflow SS Sodium [Moles/Vol] 136 mmol/L Normal 136 - 145 mmol/L AO ADM SS TSH Qn 2.02 m[IU]/L Normal 0.36 - 3.74 mcIU/mL AO ADM SS Urea nitrogen [Mass/Vol] 10 mg/dL Normal 7 - 18 mg/dL AO ADM SS Urea nitrogen/Creatinine [Mass ratio] 10 ratio Normal 7 - 27 ratio AO ADM SS WBC (Bld) [#/Vol] 4.3 103/mcL Low 4.5 - 10.8 10^3/mcL AO Workflow SS LABORATORYOrdered By: Bette Minor on 05-27-2024 Cholesterol [Mass/Vol] 220 mg/dL High 0 - 200 mg/dL AO ADM SS Comment on above: Interpretive Data: C holesterol Reference Interval: Less than 200 Desirable 200-239 Borderline high risk 240 and above High risk Cholesterol in HDL [Mass/Vol] 97 mg/dL High 40 - 60 mg/dL AO ADM SS Cholesterol in LDL [Mass/Vol] 83 mg/dL Normal 0 - 130 mg/dL AO ADM SS Triglyceride [Mass/Vol] 199 mg/dL High 0 - 150 mg/dL AO ADM SS Comment on above: Interpretive Data: T riglyceride Reference Interval: Less than 150 Normal 150-199 Borderline high risk 200-499 High risk 500 or higher Very high risk LIPIDon 05-27-2024 Cholesterol [Mass/Vol] 220 mg/dL High 0-200 [facility] Comment on above: Result Comment: Chol esterol Reference Interval: Less than 200 Desirable 200-239 Borderline high risk 240 and above High risk Performed By: #### C MP, TSHR, GFR, ANEU, LIPID, CBC, VIDH, MG, ADIFF ####[place] [address]#### PTH ####[address] [address] Cholesterol in HDL [Mass/Vol] 97 mg/dL High 40-60 [facility] Comment on above: Performed By: #### C MP, TSHR, GFR, ANEU, LIPID, CBC, VIDH, MG, ADIFF ####[place] [address]#### PTH ####[address] [address] Cholesterol in LDL [Mass/Vol] 83 mg/dL Normal 0-130 [facility] Comment on above: Performed By: #### C MP, TSHR, GFR, ANEU, LIPID, CBC, VIDH, MG, ADIFF ####[place] [address]#### PTH ####[address] [address] Triglyceride [Mass/Vol] 199 mg/dL High 0-150 [facility] Comment on above: Result Comment: Trig lyceride Reference Interval: Less than 150 Normal 150-199 Borderline high risk 200-499 High risk 500 or higher Very high risk Performed By: #### C MP, TSHR, GFR, ANEU, LIPID, CBC, VIDH, MG, ADIFF ####[place] [address]#### PTH ####[place] [address] MGon 05-27-2024 Magnesium [Mass/Vol] 1.6 mg/dL Low 1.8-2.4 [facility] Comment on above: Performed By: #### C MP, TSHR, GFR, ANEU, LIPID, CBC, VIDH, MG, ADIFF #### [place] [address] #### PTH #### [place] [address] PTHon 05-27-2024 PTH, Intact 54.3 pg/mL Normal 18.5-88.0 [facility] Comment on above: Performed By: #### C MP, TSHR, GFR, ANEU, LIPID, CBC, VIDH, MG, ADIFF #### [place] [address] #### PTH #### [place] [address] TSHRon 05-27-2024 TSH Qn 2.02 m[IU]/L Normal 0.36-3.74 [facility] Comment on above: Performed By: #### C MP, TSHR, GFR, ANEU, LIPID, CBC, VIDH, MG, ADIFF ####[place] [address]#### PTH ####[place] [address] VIDHon 05-27-2024 Vit. D 25-Hydroxy 35.4 ng/mL Normal [facility] Comment on above: Result Comment: Inte rpretive Values Based on Total 25(OH) Vitamin D: Deficient <20 ng/mL Insufficient 20 - <30 ng/mL Sufficient 30-100 ng/mL Performed By: #### C MP, TSHR, GFR, ANEU, LIPID, CBC, VIDH, MG, ADIFF ####[place] [address]#### PTH ####[place] [address] [place] [address] TSH SerPl-aCncon 04-01-2024 TSH Qn 3.290 m[IU]/L Normal 0.270-4.20 0 [facility] Comment on above: Order Comment: Roberti men Type: BLOOD SPECIMEN Ordering Facility: External Submitter Address: , , Performed By: #### 3 016-3 #### [facility] CLIA [id number] [address] [place] [address] LABORATORYOrdered By: SYSTEM SYSTEM on 12-26-2023 Calcium [Mass/Vol] 8.5 mg/dL Normal 8.4 - 10. 2 mg/dL AO ADM SS Chloride [Moles/Vol] 108 mmol/L High 98 - 10 7 mmol/L AO ADM SS CO2 [Moles/Vol] 26 mmol/L Normal 22 - 29 mmol/L AO ADM SS Creatinine [Mass/Vol] 0.83 mg/dL Normal 0.55 - 1.02 mg/dL AO ADM SS Comment on above: Interpretive Data: T esting performed on Siemens Dimension EXL analyzer using a modified kinetic Anderson technique. Electrolyte Balance 9.0 mEq/L Normal 4.0 - 15 .0 mEq/L AO ADM SS GFR/1.73 sq M.predicted among blacks MDRD (S/P/Bld) [Vol rate/Area] 86 ml/min/1.73sqm Invalid Interpretation Code AO Chemistry S Comment on above: Interpretive Data: GFR Population mean for , Non- Americans Ages 20-29 = 116 mL/min/1.73 sq.m. Ages 30-39 = 107 mL/min/1.73 sq.m. Ages 40-49 = 99 mL/min/1.73 sq.m. Ages 50-59 = 93 mL/min/1.73 sq.m. Ages 60-69 = 85 mL/min/1.73 sq.m. Ages 70+ = 75 mL/min/1.73 sq.m. Chronic Kidney Disease: Less than 60 mL/min/1.73 square meters End Stage Renal Disease: Less than 15 mL/min/1.73 square meters GFR/1.73 sq M.predicted among non-blacks MDRD (S/P/Bld) [Vol rate/Area] 71 ml/min/1.73sqm Invalid Interpretation Code AO Chemistry S Comment on above: Interpretive Data: GFR Population mean for , Non- Americans Ages 20-29 = 116 mL/min/1.73 sq.m. Ages 30-39 = 107 mL/min/1.73 sq.m. Ages 40-49 = 99 mL/min/1.73 sq.m. Ages 50-59 = 93 mL/min/1.73 sq.m. Ages 60-69 = 85 mL/min/1.73 sq.m. Ages 70+ = 75 mL/min/1.73 sq.m. Chronic Kidney Disease: Less than 60 mL/min/1.73 square meters End Stage Renal Disease: Less than 15 mL/min/1.73 square meters Glucose [Mass/Vol] 91 mg/dL Normal 70 - 105 mg/dL AO ADM SS Natriuretic peptide.B prohormone N-Terminal [Mass/Vol] 345 pg/mL High 0 - 125 pg/mL AO ADM SS Comment on above: Interpretive Data: N T-proBNP results of less than 300 pg/mL effectively rules out acute congestive heart failure with 99% negative predictive value. Potassium [Moles/Vol] 4.1 mmol/L Normal 3.5 - 5.1 mmol/L AO ADM SS Sodium [Moles/Vol] 143 mmol/L Normal 136 - 145 mmol/L AO ADM SS Urea nitrogen [Mass/Vol] 12 mg/dL Normal 7 - 18 mg/dL AO ADM SS Urea nitrogen/Creatinine [Mass ratio] 14 ratio Normal 7 - 27 ratio AO ADM SS Magnesium [Mass/Vol] 1.9 mg/dL Normal 1.8 - 2 .4 mg/dL AO ADM SS Potassium [Moles/Vol] 4.0 mmol/L Normal 3.5 - 5.1 mmol/L AO ADM SS MA MAMMOGRAM SCREENING BILAT ERAL W/TOMOon 12-01-2023 [place] MAMMOGRAM SCREENING BILATERAL W/CLARK [facility] [address], [place] [address] PROCEDURE FOR: MARYSE PISAON [address] [place] [address] Home: PID#: [id number] Exam#: [id number] : 1965 Age: 58 TO: CHRISTA IVERSON [facility] [address] [place] [address] Fax: NO FAX EXAMINATION: SCREENING DIGITAL BILATERAL MAMMOGRAM WITH TOMOSYNTHESIS, 11/30/2023 7:49 am TECHNIQUE: Screening mammography of the bilateral breasts was performed with tomosynthesis. 2D standard and 3D tomosynthesis combination imaging performed through both breasts in the MLO and CC projection. Computer aided detection was utilized in the interpretation of this exam. COMPARISON: 11/28/2022, 02/14/2022, 08/12/2021, 04/20/2020, 08/14/2019 HISTORY: Breast cancer screening. FINDINGS: BREAST DENSITY: The breasts are heterogeneously dense, which may obscure small masses. Multiple circumscribed masses are present in both breasts compatible with cysts. There are no suspicious masses or calcifications. IMPRESSION: No mammographic evidence of malignancy. Continued screening with annual mammograms is recommended. Tyrtom zick risk calculations, generated with the history provided, report this patient's 10 year risk and lifetime risk for developing breast cancer at 3.1% and 9.4%, respectively. Based on this assessment tool, if the patient's calculated lifetime risk is below 20%, then the patient is considered at average risk for developing breast cancer. If the patient's calculated lifetime risk is at or above 20%, then the patient is considered high risk for developing breast cancer and may be a candidate for supplemental breast MRI screening in addition to annual mammographic screening per the [employer]. BIRADS: BI-RADS: 2: Benign RECALL: 1 year screening RECALL TYPE: mammo LETTER SENT: Normal BI-RADS 1 and 2 Interpreted by: Lc Zhu MD Preliminary Report By: Lc Zhu MD Electronically signed By Lc Zhu MD Dictated Date: 12/01/2023 5:05:22 AM Prelim Date: 12/01/2023 5:17:06 AM Sign Date: 12/01/2023 5:17:06 AM Ordering Provider: CHRISTA IVERSON [employer] Operator: GILBERTO DE DIOS RT(R)(M)(CT) letter sent: Normal BI-RADS 1 and 2 Mammogram BI-RADS: 2 Benign Normal [facility] ([place]) .Auto Diffon 10-17-2023 Basophil, Absolute 0.0 10 3/mcL Normal 0.0-0.2 [facility] ([place]) Comment on above: Performed By: #### V IDH, FT4, CMP, TSH, LIPID, GFR #### [address] [address] Basophils/100 WBC (Bld) 1.2 % Normal 0.0-2.5 [facility] ([place]) Comment on above: Performed By: #### V IDH, FT4, CMP, TSH, LIPID, GFR #### [address] [address] Eosinophil, Absolute 0.1 10 3/mcL Normal 0.0-0.4 [facility] ([place]) Comment on above: Performed By: #### V IDH, FT4, CMP, TSH, LIPID, GFR #### [address] [address] Eosinophils/100 WBC (Bld) 3.5 % Normal 0.0-7.0 [facility] ([place]) Comment on above: Performed By: #### V IDH, FT4, CMP, TSH, LIPID, GFR #### [address] [address] Lymphocyte, Absolute 1.6 10 3/mcL Normal 0.8-3.9 [facility] ([place]) Comment on above: Performed By: #### V IDH, FT4, CMP, TSH, LIPID, GFR #### [address] [address] Lymphocytes/100 WBC (Bld) 47.1 % Normal 10.0-50.0 [facility] ([place]) Comment on above: Performed By: #### V IDH, FT4, CMP, TSH, LIPID, GFR #### [address] [address] Monocyte, Absolute 0.4 10 3/mcL Normal 0.2-1.0 [facility] ([place]) Comment on above: Performed By: #### V IDH, FT4, CMP, TSH, LIPID, GFR #### [address] [address] Monocytes/100 WBC (Bld) 11.8 % Normal 1.7-13.0 [facility] ([place]) Comment on above: Performed By: #### V IDH, FT4, CMP, TSH, LIPID, GFR #### [address] [address] Neutrophils/100 WBC (Bld) 36.4 % Low 37.0-80.0 [facility] ([place]) Comment on above: Performed By: #### V IDH, FT4, CMP, TSH, LIPID, GFR #### [address] [address] .GFRon 10-17-2023 GFR 75 ml/min/1.73sqm Normal [facility] ([place]) Comment on above: Result Comment: GFR Population mean for , [...] 15 mL/min/1.73 square meters Performed By: #### V IDH, FT4, CMP, TSH, LIPID, GFR #### [address] [address] GFR Non- 62 ml/min/1.73sqm Normal [facility] ([place]) Comment on above: Result Comment: GFR Population mean for , [...] 15 mL/min/1.73 square meters Performed By: #### V IDH, FT4, CMP, TSH, LIPID, GFR #### [address] [address] .NEUABSon 10-17-2023 Neutrophil, Absolute 1.3 10 3/mcL Low 2.9-6.2 [facility] ([place]) Comment on above: Performed By: #### V IDH, FT4, CMP, TSH, LIPID, GFR #### [address] [address] CBCon 10-17-2023 Erythrocyte distribution width (RBC) [Ratio] 14.1 % Normal 11.5-14.5 [facility] ([place]) Comment on above: Performed By: #### V IDH, FT4, CMP, TSH, LIPID, GFR #### [address] [address] Hematocrit (Bld) [Volume fraction] 42.6 % Normal 37.0-47.0 [facility] ([place]) Comment on above: Performed By: #### V IDH, FT4, CMP, TSH, LIPID, GFR #### [address] [address] Hgb 14.3 G/dL Normal 12.0-16.0 [facility] ([place]) Comment on above: Performed By: #### V IDH, FT4, CMP, TSH, LIPID, GFR #### [address] [address] MCH (RBC) [Entitic mass] 33.3 pg High 27.0-31.2 [facility] ([place]) Comment on above: Performed By: #### V IDH, FT4, CMP, TSH, LIPID, GFR #### [address] [address] MCHC 33.6 G/dL Normal 33.0-37.0 [facility] ([place]) Comment on above: Performed By: #### V IDH, FT4, CMP, TSH, LIPID, GFR #### [address] [address] MCV (RBC) [Entitic vol] 99.2 fL High 80.0-94.0 [facility] ([place]) Comment on above: Performed By: #### V IDH, FT4, CMP, TSH, LIPID, GFR #### [address] [address] Platelet 196 10 3/mcL Normal 130-400 [facility] ([place]) Comment on above: Performed By: #### V IDH, FT4, CMP, TSH, LIPID, GFR #### [address] [address] Platelet mean volume (Bld) [Entitic vol] 7.8 fL Normal 7.4-10.4 [facility] ([place]) Comment on above: Performed By: #### V IDH, FT4, CMP, TSH, LIPID, GFR #### [address] [address] RBC 4.30 10 6/mcL Normal 4.20-5.40 [facility] ([place]) Comment on above: Performed By: #### V IDH, FT4, CMP, TSH, LIPID, GFR #### [address] [address] WBC 3.4 10 3/mcL Low 4.6-10.8 [facility] ([place]) Comment on above: Performed By: #### V IDH, FT4, CMP, TSH, LIPID, GFR #### [address] [address] CMPon 10-17-2023 Albumin Level 3.6 G/dL Normal 3.5-5.0 [facility] ([place]) Comment on above: Performed By: #### V IDH, FT4, CMP, TSH, LIPID, GFR #### [address] [address] Albumin/Globulin [Mass ratio] 1.1 {ratio} Normal 1.1-2.5 [facility] ([place]) Comment on above: Performed By: #### V IDH, FT4, CMP, TSH, LIPID, GFR #### [address] [address] ALP [Catalytic activity/Vol] 114 U/L Normal 40-135 [facility] ([place]) Comment on above: Performed By: #### V IDH, FT4, CMP, TSH, LIPID, GFR #### [address] [address] ALT [Catalytic activity/Vol] 23 U/L Normal 14-59 [facility] ([place]) Comment on above: Performed By: #### V IDH, FT4, CMP, TSH, LIPID, GFR #### [address] [address] AST [Catalytic activity/Vol] 34 U/L Normal 10-40 [facility] ([place]) Comment on above: Performed By: #### V IDH, FT4, CMP, TSH, LIPID, GFR #### [address] [address] Bili Total 0.6 mg/dL Normal 0.2-1.0 [facility] ([place]) Comment on above: Result Comment: Use of this assay is not recommended for patients undergoing treatment with eltrombopag due to the potential for falsely elevated results. Performed By: #### V IDH, FT4, CMP, TSH, LIPID, GFR #### [address] [address] BUN/Creatinine Ratio 14 ratio Normal 7-27 [facility] ([place]) Comment on above: Performed By: #### V IDH, FT4, CMP, TSH, LIPID, GFR #### [address] [address] Calcium [Mass/Vol] 9.5 mg/dL Normal 8.4-10.2 [facility] ([place]) Comment on above: Performed By: #### V IDH, FT4, CMP, TSH, LIPID, GFR #### [address] [address] Chloride [Moles/Vol] 95 mmol/L Low 98-107 [facility] ([place]) Comment on above: Performed By: #### V IDH, FT4, CMP, TSH, LIPID, GFR #### [address] [address] CO2 [Moles/Vol] 32 mmol/L High 22-29 [facility] ([place]) Comment on above: Performed By: #### V IDH, FT4, CMP, TSH, LIPID, GFR #### [address] [address] Creatinine [Mass/Vol] 0.94 mg/dL Normal 0.55-1.02 [facility] ([place]) Comment on above: Performed By: #### V IDH, FT4, CMP, TSH, LIPID, GFR #### [address] [address] Electrolyte Balance 10.0 mEq/L Normal 4.0-15.0 [facility] ([place]) Comment on above: Performed By: #### V IDH, FT4, CMP, TSH, LIPID, GFR #### [address] [address] Globulin 3.2 G/dL Normal [facility] ([place]) Comment on above: Performed By: #### V IDH, FT4, CMP, TSH, LIPID, GFR #### [address] [address] Glucose [Mass/Vol] 73 mg/dL Normal 70-105 [facility] ([place]) Comment on above: Performed By: #### V IDH, FT4, CMP, TSH, LIPID, GFR #### [address] [address] Potassium [Moles/Vol] 3.1 mmol/L Low 3.5-5.1 [facility] ([place]) Comment on above: Performed By: #### V IDH, FT4, CMP, TSH, LIPID, GFR #### [address] [address] Sodium [Moles/Vol] 137 mmol/L Normal 136-145 [facility] ([place]) Comment on above: Performed By: #### V IDH, FT4, CMP, TSH, LIPID, GFR #### [address] [address] Total Protein 6.8 G/dL Normal 6.4-8.2 [facility] ([place]) Comment on above: Performed By: #### V IDH, FT4, CMP, TSH, LIPID, GFR #### [address] [address] Urea nitrogen [Mass/Vol] 13 mg/dL Normal 7-18 [facility] ([place]) Comment on above: Performed By: #### V IDH, FT4, CMP, TSH, LIPID, GFR #### [address] [address] HCVon 10-17-2023 Hep C Ab Non-Reactive Normal Non-Reacti ve [facility] ([place]) Comment on above: Performed By: #### V IDH, FT4, CMP, TSH, LIPID, GFR #### [address] [address] Hep C Ab Int Normal [facility] ([place]) Comment on above: Result Comment: Nonr eactive: Samples with a value < 0.80 are considered nonreactive (negative) for antibodies to HCV. A negative test result does not exclude the possibility of exposure to or infection with HCV. HCV antibodies may be undetectable in some stages of the infection and in some clinical conditions. See Interp Performed By: #### V IDH, FT4, CMP, TSH, LIPID, GFR #### [address] [address] LABORATORYOrdered By: SYSTEM SYSTEM on 10-17-2023 Albumin BCP dye [Mass/Vol] 3.6 G/dL Normal 3.5 - 5.0 G/dL AO ADM SS Albumin/Globulin [Mass ratio] 1.1 {ratio} Normal 1.1 - 2.5 ratio AO ADM SS ALP [Catalytic activity/Vol] 114 U/L Normal 40 - 135 U/L AO ADM SS ALT With P-5'-P [Catalytic activity/Vol] 23 U/L Normal 14 - 59 U/L AO ADM SS AST With P-5'-P [Catalytic activity/Vol] 34 U/L Normal 10 - 40 U/L AO ADM SS Basophil, Absolute 0.0 103/mcL Normal 0.0 - 0.2 10^3/mcL AO Workflow SS Basophils/100 WBC (Bld) 1.2 % Normal 0.0 - 2.5 % AO Workflow SS Bilirubin [Mass/Vol] 0.6 mg/dL Normal 0.2 - 1 .0 mg/dL AO ADM SS Comment on above: Interpretive Data: U se of this assay is not recommended for patients undergoing treatment with eltrombopag due to the potential for falsely elevated results. Calcium [Mass/Vol] 9.5 mg/dL Normal 8.4 - 10. 2 mg/dL AO ADM SS Chloride [Moles/Vol] 95 mmol/L Low 98 - 10 7 mmol/L AO ADM SS CO2 [Moles/Vol] 32 mmol/L High 22 - 29 mmol/L AO ADM SS Creatinine [Mass/Vol] 0.94 mg/dL Normal 0.55 - 1.02 mg/dL AO ADM SS Electrolyte Balance 10.0 mEq/L Normal 4.0 - 15 .0 mEq/L AO ADM SS Eosinophil, Absolute 0.1 103/mcL Normal 0.0 - 0 .4 10^3/mcL AO Workflow SS Eosinophils/100 WBC (Bld) 3.5 % Normal 0.0 - 7.0 % AO Workflow SS Erythrocyte distribution width (RBC) [Ratio] 14.1 % Normal 11.5 - 14.5 % AO Workflow SS GFR/1.73 sq M.predicted among blacks MDRD (S/P/Bld) [Vol rate/Area] 75 ml/min/1.73sqm Invalid Interpretation Code AO Chemistry S Comment on above: Interpretive Data: GFR Population mean for , Non- Americans Ages 20-29 = 116 mL/min/1.73 sq.m. Ages 30-39 = 107 mL/min/1.73 sq.m. Ages 40-49 = 99 mL/min/1.73 sq.m. Ages 50-59 = 93 mL/min/1.73 sq.m. Ages 60-69 = 85 mL/min/1.73 sq.m. Ages 70+ = 75 mL/min/1.73 sq.m. Chronic Kidney Disease: Less than 60 mL/min/1.73 square meters End Stage Renal Disease: Less than 15 mL/min/1.73 square meters GFR/1.73 sq M.predicted among non-blacks MDRD (S/P/Bld) [Vol rate/Area] 62 ml/min/1.73sqm Invalid Interpretation Code AO Chemistry S Comment on above: Interpretive Data: GFR Population mean for , Non- Americans Ages 20-29 = 116 mL/min/1.73 sq.m. Ages 30-39 = 107 mL/min/1.73 sq.m. Ages 40-49 = 99 mL/min/1.73 sq.m. Ages 50-59 = 93 mL/min/1.73 sq.m. Ages 60-69 = 85 mL/min/1.73 sq.m. Ages 70+ = 75 mL/min/1.73 sq.m. Chronic Kidney Disease: Less than 60 mL/min/1.73 square meters End Stage Renal Disease: Less than 15 mL/min/1.73 square meters Globulin 3.2 G/dL Invalid Interpretation Code AO ADM SS Glucose [Mass/Vol] 73 mg/dL Normal 70 - 105 mg/dL AO ADM SS Hematocrit (Bld) [Volume fraction] 42.6 % Normal 37.0 - 47.0 % AO Workflow SS Hemoglobin (Bld) [Mass/Vol] 14.3 G/dL Normal 12.0 - 16.0 G/dL AO Workflow SS Lymphocyte, Absolute 1.6 103/mcL Normal 0.8 - 3 .9 10^3/mcL AO Workflow SS Lymphocytes/100 WBC (Bld) 47.1 % Normal 10.0 - 50.0 % AO Workflow SS MCH (RBC) [Entitic mass] 33.3 pg High 27.0 - 31.2 pg AO Workflow SS MCHC 33.6 G/dL Normal 33.0 - 37.0 G/dL AO Workflow SS MCV (RBC) [Entitic vol] 99.2 fL High 80.0 - 94.0 fL AO Workflow SS Monocyte, Absolute 0.4 103/mcL Normal 0.2 - 1.0 10^3/mcL AO Workflow SS Monocytes/100 WBC (Bld) 11.8 % Normal 1.7 - 13.0 % AO Workflow SS Neutrophil, Absolute 1.3 103/mcL Low 2.9 - 6 .2 10^3/mcL AO Workflow SS Neutrophils/100 WBC (Bld) 36.4 % Low 37.0 - 80.0 % AO Workflow SS Platelet mean volume (Bld) [Entitic vol] 7.8 fL Normal 7.4 - 10.4 fL AO Workflow SS Platelets (Bld) [#/Vol] 196 103/mcL Normal 130 - 400 10^3/mcL AO Workflow SS Potassium [Moles/Vol] 3.1 mmol/L Low 3.5 - 5.1 mmol/L AO ADM SS Protein [Mass/Vol] 6.8 G/dL Normal 6.4 - 8.2 G/dL AO ADM SS RBC (Bld) [#/Vol] 4.30 106/mcL Normal 4.20 - 5.40 10^6/mcL AO Workflow SS Sodium [Moles/Vol] 137 mmol/L Normal 136 - 145 mmol/L AO ADM SS TSH Qn 2.06 m[IU]/L Normal 0.36 - 3.74 mcIU/mL AO ADM SS Urea nitrogen [Mass/Vol] 13 mg/dL Normal 7 - 18 mg/dL AO ADM SS Urea nitrogen/Creatinine [Mass ratio] 14 ratio Normal 7 - 27 ratio AO ADM SS WBC (Bld) [#/Vol] 3.4 103/mcL Low 4.6 - 10.8 10^3/mcL AO Workflow SS LABORATORYOrdered By: Scott Jeronimo on 10-17-2023 HCV Ab IA Ql Non-Reactive (10/17/23 8:18 AM) Normal Non-Reacti ve ADM SS HCV Ab IA Ql Nonreactive: Samples with a value < 0.80 are considered nonreactive (negative) for antibodies to HCV.A negative test result does not exclude the possibility of exposure to or infection with HCV. HCV antibodies may be undetectable in some stages of the infection and in some clinical conditions. Invalid Interpretation Code Chemistry S TSHon 10-17-2023 TSH Qn 2.06 m[IU]/L Normal 0.36-3.74 [facility] ([place]) Comment on above: Performed By: #### V IDH, FT4, CMP, TSH, LIPID, GFR #### [place] [id number] MRI SPINE CERVICAL W/O CONTR Oliverio 09-18-2023 MRI SPINE CERVICAL W/O CONTRAST ORIGINAL EXAMINATION: MRI OF THE CERVICAL SPINE WITHOUT CONTRAST 09/15/2023 10:43 am TECHNIQUE: Multiplanar multisequence MRI of the cervical spine was performed without the administration of intravenous contrast. COMPARISON: X-ray cervical spine 08/15/2023, CT neck 05/26/2023 HISTORY: ORDERING SYSTEM PROVIDED HISTORY: Reason for Exam: Cervical pain History of thyroid cancer. FINDINGS: There is straightening of the cervical lordosis which could be positional or related to spasm. Minimal retrolisthesis C5 on C6. Vertebral body heights demonstrate mild chronic height loss at C5. Diffuse disc desiccation throughout the cervical spine. Disc height loss is greatest at C5-6. Modic type 1 and 3 changes seen at C5-6. No suspicious marrow signal abnormality. The cervical cord is normal in signal intensity. The paraspinal soft tissues are grossly nonacute. C2-C3: No canal or neural foraminal stenosis. C3-C4: Disc osteophyte complex with mild canal stenosis. No significant right and mild left neural foraminal stenosis. C4-C5: Disc osteophyte complex with uncovertebral hypertrophy with mild canal stenosis. No significant right and mild left neural foraminal stenosis. C5-C6: Disc osteophyte complex with uncovertebral hypertrophy and posterior ligament hypertrophy with mild canal stenosis. Moderate right and severe left neural foraminal stenosis. C6-C7: Mild disc osteophyte complex with uncovertebral hypertrophy and mild posterior ligament hypertrophy. Mild canal stenosis. No significant neural foraminal stenosis. C7-T1: Mild facet arthropathy without canal or significant neural foraminal stenosis. IMPRESSION: 1. Multilevel degenerative changes with multifocal mild canal stenosis, greatest at C5-6. 2. Severe left and moderate right neural foraminal stenosis at C5-C6. Interpreted by: Sharee Cueva MD Preliminary Report By: Sharee Cueva MD Electronically signed By Sharee Cueva MD Dictated Date: 09/18/2023 8:44:03 AM Prelim Date: 09/18/2023 8:51:13 AM Sign Date: 09/18/2023 8:51:13 AM Ordering Provider: DWAINE CHARLTON [facility] ([place]) XR SPINE CERVICAL AP/LATon 0 08-17-2023 XR SPINE CERVICAL AP/LAT ORIGINAL HISTORY: Myelopathy COMPARISON: No FINDINGS: There are no acute fractures or dislocations. Alignment is within normal limits. The individual vertebral bodies are intact. There is disc space narrowing, most prominently at C5-C6. There are at most mild facet degenerative changes in the upper cervical spine. Prevertebral soft tissues are unremarkable in appearance. IMPRESSION: Mild degenerative disc disease. Interpreted by: Alden Pisano MD Preliminary Report By: Alden Pisano MD Electronically signed By Alden Pisano MD Dictated Date: 08/17/2023 12:48:38 PM Prelim Date: 08/17/2023 12:49:39 PM Sign Date: 08/17/2023 12:49:39 PM Ordering Provider: CHRISTA IVERSON [facility] ([place]) .GFRon 08-15-2023 GFR Non- 76 ml/min/1.73sqm Normal [facility] ([place]) Comment on above: Result Comment: GFR Population mean for , [...] 15 mL/min/1.73 square meters Performed By: #### V IDH, FT4, CMP, TSH, LIPID, GFR #### [address] [address] GFR 92 ml/min/1.73sqm Normal [facility] ([place]) Comment on above: Result Comment: GFR Population mean for , [...] 15 mL/min/1.73 square meters Performed By: #### V IDH, FT4, CMP, TSH, LIPID, GFR #### [address] [address] BMPon 08-15-2023 BUN/Creatinine Ratio 23 ratio Normal 7-27 [facility] ([place]) Comment on above: Performed By: #### V IDH, FT4, CMP, TSH, LIPID, GFR #### [address] [address] Calcium [Mass/Vol] 8.9 mg/dL Normal 8.4-10.2 [facility] ([place]) Comment on above: Performed By: #### V IDH, FT4, CMP, TSH, LIPID, GFR #### [address] [address] Chloride [Moles/Vol] 100 mmol/L Normal 98-107 [facility] ([place]) Comment on above: Performed By: #### V IDH, FT4, CMP, TSH, LIPID, GFR #### [address] [address] CO2 [Moles/Vol] 28 mmol/L Normal 22-29 [facility] ([place]) Comment on above: Performed By: #### V IDH, FT4, CMP, TSH, LIPID, GFR #### [address] [address] Creatinine [Mass/Vol] 0.79 mg/dL Normal 0.55-1.02 [facility] ([place]) Comment on above: Performed By: #### V IDH, FT4, CMP, TSH, LIPID, GFR #### [address] [address] Electrolyte Balance 10.0 mEq/L Normal 4.0-15.0 [facility] ([place]) Comment on above: Performed By: #### V IDH, FT4, CMP, TSH, LIPID, GFR #### [address] [address] Glucose [Mass/Vol] 96 mg/dL Normal 70-105 [facility] ([place]) Comment on above: Performed By: #### V IDH, FT4, CMP, TSH, LIPID, GFR #### [address] [address] Potassium [Moles/Vol] 3.7 mmol/L Normal 3.5-5.1 [facility] ([place]) Comment on above: Performed By: #### V IDH, FT4, CMP, TSH, LIPID, GFR #### [place] [address] [place], [place] [address] Sodium [Moles/Vol] 138 mmol/L Normal 136-145 [facility] ([place]) Comment on above: Performed By: #### V IDH, FT4, CMP, TSH, LIPID, GFR #### [address] [address] Urea nitrogen [Mass/Vol] 18 mg/dL Normal 7-18 [facility] ([place]) Comment on above: Performed By: #### V IDH, FT4, CMP, TSH, LIPID, GFR #### [address] [address] LABORATORYOrdered By: SYSTEM SYSTEM on 08-15-2023 Calcium [Mass/Vol] 8.9 mg/dL Normal 8.4 - 10. 2 mg/dL AO ADM SS Chloride [Moles/Vol] 100 mmol/L Normal 98 - 10 7 mmol/L AO ADM SS CO2 [Moles/Vol] 28 mmol/L Normal 22 - 29 mmol/L AO ADM SS Creatinine [Mass/Vol] 0.79 mg/dL Normal 0.55 - 1.02 mg/dL AO ADM SS Electrolyte Balance 10.0 mEq/L Normal 4.0 - 15 .0 mEq/L AO ADM SS GFR/1.73 sq M.predicted among blacks MDRD (S/P/Bld) [Vol rate/Area] 92 ml/min/1.73sqm Invalid Interpretation Code AO Chemistry S Comment on above: Interpretive Data: GFR Population mean for , Non- Americans Ages 20-29 = 116 mL/min/1.73 sq.m. Ages 30-39 = 107 mL/min/1.73 sq.m. Ages 40-49 = 99 mL/min/1.73 sq.m. Ages 50-59 = 93 mL/min/1.73 sq.m. Ages 60-69 = 85 mL/min/1.73 sq.m. Ages 70+ = 75 mL/min/1.73 sq.m. Chronic Kidney Disease: Less than 60 mL/min/1.73 square meters End Stage Renal Disease: Less than 15 mL/min/1.73 square meters GFR/1.73 sq M.predicted among non-blacks MDRD (S/P/Bld) [Vol rate/Area] 76 ml/min/1.73sqm Invalid Interpretation Code AO Chemistry S Comment on above: Interpretive Data: GFR Population mean for , Non- Americans Ages 20-29 = 116 mL/min/1.73 sq.m. Ages 30-39 = 107 mL/min/1.73 sq.m. Ages 40-49 = 99 mL/min/1.73 sq.m. Ages 50-59 = 93 mL/min/1.73 sq.m. Ages 60-69 = 85 mL/min/1.73 sq.m. Ages 70+ = 75 mL/min/1.73 sq.m. Chronic Kidney Disease: Less than 60 mL/min/1.73 square meters End Stage Renal Disease: Less than 15 mL/min/1.73 square meters Glucose [Mass/Vol] 96 mg/dL Normal 70 - 105 mg/dL AO ADM SS Natriuretic peptide.B prohormone N-Terminal [Mass/Vol] 85 pg/mL Normal 0 - 125 pg/mL AO ADM SS Comment on above: Interpretive Data: N T-proBNP results of less than 300 pg/mL effectively rules out acute congestive heart failure with 99% negative predictive value. Potassium [Moles/Vol] 3.7 mmol/L Normal 3.5 - 5.1 mmol/L AO ADM SS Sodium [Moles/Vol] 138 mmol/L Normal 136 - 145 mmol/L AO ADM SS Urea nitrogen [Mass/Vol] 18 mg/dL Normal 7 - 18 mg/dL AO ADM SS Urea nitrogen/Creatinine [Mass ratio] 23 ratio Normal 7 - 27 ratio AO ADM SS PBNPon 08-15-2023 Natriuretic peptide B (Bld) [Mass/Vol] 85 pg/mL Normal 0-125 [facility] ([place]) Comment on above: Result Comment: NT-p roBNP results of less than 300 pg/mL effectively rules out acute congestive heart failure with 99% negative predictive value. Performed By: #### V IDH, FT4, CMP, TSH, LIPID, GFR #### [facility] [address] [place], [place] [address] CNOVon 08-07-2023 CNOV Office Visit (PULMWS ) MARYSE PISANO ([id number]) 1965 F Date Time Provider Department 08/07/23 8:45 AM JULEE BARRERA PULMWS During your visit today, we recorded the following information about you: Pulse Respiration Blood pressure Weight 70/minute 14/minute 110/78 74.4 kg Julee Barrera MD 08/07/2023 11:58 AM Signed . Respiratory [place] Note Patient name: Maryse Pisano PCP: Christa Iverson CNP CC: COPD HPI: Maryse Pisano 57 year old female current smoker with PMH significant for GERD, anxiety disorder, history of seizures, history of thyroid cancer, COPD, emphysema by CT of the chest last seen by Dr. Cedeno in 2010. Pulmonary nodules has been following up with [facility] in [place] so I do not have images. With regards to her lung disease she has daily dyspnea on exertion, shortness of breath is worsened by exposure to cold air, changes in the weather and perfumes. She has daily wheezing and cough productive of phlegm. She has frequent awakenings with shortness of breath. Her inhaled therapy was recently changed from Breo Ellipta to Trelegy Ellipta with continued use of albuterol. She uses her albuterol daily which does offer her some relief. She does not currently have a nebulizer machine at home. She used to have a nebulizer in the past but her machine was lost with a move. She is a current smoker, she was able to quit for currently 8 months but cites a recent stress with her as an excuse to start smoking again. She was a former 2 pack a day smoker smoking half a pack a day. She cannot use nicotine gum due to her edentulous state, nicotine patches caused a rash and Chantix caused side effects necessitating discontinuation. DATA: PFT: Review of spirometry shows moderately severe obstruction, mild improvement in his 20s with bronchodilator, moderate reduction in diffusing capacity Labs: Component Ref Range AND Units 5 yr ago WBC 3.4 - 10.6 K/mcL 9.5 RBC 3.7 - 5 M/mcL 4.21 Hemoglobin 11.6 - 15.4 g/dL 12.2 Hematocrit 34.4 - 44.8 % 36.6 MCV 82.6 - 98.9 FL 87.0 MCH 27.9 - 33.9 pg 28.9 MCHC 33.1 - 35.1 g/dL 33.3 RDW 10 - 14.4 % 13.7 Platelets 162 - 402 K/mcL 226 MPV 7 - 10.6 FL 8.3 Absolute Neutrophils 1.2 - 6.9 K/mcL 5.4 Absolute Lymphocytes 1 - 3.7 K/mcL 3.4 Absolute Monocytes 0.1 - 0.6 K/mcL 0.5 Absolute Eosinophils 0 - 0.5 K/mcL 0.2 Absolute Basophils 0 - 0.2 K/mcL 0.0 Segmented Neut % 57.3 Lymphocytes % 35.7 Monocytes % 5.1 Eosinophils % 1.7 Basophils % 0.2 Component Ref Range AND Units 19 yr ago Alpha 1 Antitrypsin 100 - 220 mg/dL 150 Imaging / Diagnostic Studies: Last CT of the chest in 2009 at reported as upper lobe emphysema and several small pulmonary nodules. Accession No: [id number] Performed: Nov 14 2017 4:14PM Examination: CT CHEST W/CONTRAST TYPE: CT CHEST W/CONTRAST EXAM DATE AND TIME: 11/14/2017 4:14 PM EDT INDICATION: 52 years old Female with chronic back and rib pain. COMPARISON: None. TECHNIQUE: CT scan of chest was performed without contrast. FINDINGS: MEDIASTINUM: Visualized airways are patent. Heart [...] lesions. Mild degenerative spondylosis of the midthoracic Spine. IMPRESSION: 1. Moderate emphysematous changes. 2. Several noncalcified pulmonary nodules measuring up to 6 mm. Recommend [address] follow-up. 3. No displaced rib fractures. No acute vertebral body compression fractures. 4. Mild degenerative changes of the midthoracic spine. 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 Normal [facility] No Panel Informationon 08-06 DLCO (ml/min/mmHg) 9.37 ml/min/mm H g DLCO/VA (ml/min/mmHg/L) 2.69 ml/min/mmH g/L MOV92-40% POST (L/S) 0.36 L/S [facility] GLF25-74% PRE (L/S) 0.22 L/S [facility] FEV1 PRE (L) 0.96 L FEV1/FVC POST (%) 43 % [facility] FEV1/FVC PRE (%) 41 % [facility] FEV1_POST (L) 1.12 L FVC POST (L) 2.60 L FVC PRE (L) 2.35 L PEF POST (L/S) 2.74 L/S PEF PRE (L/S) 2.50 L/S VA (L) 3.49 L [facility] [address] [facility], [place] [address] Test Date: 2023-08-07 Pat Name: MARYSE PISANO Department: Room: Gender: Female 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 No contraindications or sensitivities were noted. Meds taken: Trelegy 24/hours before testing. 4 puffs Albuterol (360 mcg) delivered by MDI via holding chamber. HR pre = 70/min, HR post = 70/min. Current ATS/ERS acceptability and repeatability standards for spirometry met. Start of test and EOFE criteria met. The two largest DLCO values were repeatable. IMPRESSION: Spirometry indicates severe obstruction. The increase in RV, in the absence of airway obstruction, is of uncertain significance. The diffusing capacity is moderately reduced. The presence of a reduced lung diffusing capacity - that does not normalize when measured independent of alveolar volume (kCO) suggests a parenchymal or pulmonary vascular disorder. Electronically Signed On 08-07-2023 14:14:56 EDT by Julee Barrera MD ID: [id number] Name: MARYSE PISANO Race: White Ht: 61.38 in Wt: 165.00 lbs Age: 57 Gender: Female : 1965 Dx: COPD_ Smoking Hx: Non-smoker Doctor: JULEE BARRERA Test Date: 08/07/2023 Site: [facility] Tech: Lorenza [place] PRE-BRONCH POST-BRONCH Pre LLN Pred ULN %Pred Post %Pred %Chg SPIROMETRY FVC (L) 2.35 2.03 2.77 3.52 85 2.60 93 8 FEV1 (L) 0.96 1.64 2.25 2.83 42 1.12 49 6 FEV1/FVC 0.41 0.69 0.81 0.91 50 0.43 53 4 PEF L/s (L/sec) 2.50 4.54 6.11 7.69 40 2.74 44 9 FEF50 (L/sec) 0.29 1.62 3.23 4.84 8 0.46 14 61 FIF50 (L/sec) 2.70 2.12 -21 FEF50/FIF50 0.11 90-100 0.22 106 FIVC (L) 1.84 2.33 26 PFB07-29 (L/sec) 0.22 1.24 2.32 3.74 9 0.36 15 59 Time (sec) 15.53 15.39 0 FET PEF (sec) 0.05 0.07 22 WILLIAM (L) 0.02 0.03 26 Vol Extrap % (%) 1 1 14 LUNG DIFFUSION DLCOunc (ml/min/mmHg) 9.37 14.86 21.03 27.20 44 VA (L) 3.49 3.53 4.63 5.73 75 DLunc/VA (ml/min/mmHg/L) 2.69 3.31 4.63 5.95 58 BHT (sec) 11.67 IVC (L) 2.06 Comments: Medications and Allergies were reviewed for possible drug interactions per policy. No contraindications or sensitivities were noted. Meds taken: Trelegy 24/hours before testing. 4 puffs Albuterol (360 mcg) delivered by MDI via holding chamber. HR pre = 70/min, HR post = 70/min. Current ATS/ERS acceptability and repeatability standards for spirometry met. Start of test and EOFE criteria met. The two largest DLCO values were repeatable. PULMONARY FUNCTION LAB MRI SPINE LUMBAR W/O CONTRAS Ton 07-20-2023 MRI SPINE LUMBAR W/O CONTRAST ORIGINAL INDICATION:ORDERING SYSTEM PROVIDED HISTORY: Reason for Exam: Paresthesia of left leg TECHNIQUE: MRI of the lumbar spine was performed without the administration of intravenous contrast, according to standard protocol. COMPARISON: Lumbar spine x-rays 05/01/2023 FINDINGS: ALIGNMENT: Trace retrolisthesis of L3 on L4. Mild upper lumbar rotary VERTEBRAE: No acute/recent fracture or significant chronic height loss. DISCS: Widespread disc desiccation. Mild disc height loss at L3-L4. CONUS MEDULLARIS AND CAUDA EQUINA: The conus medullaris terminates at L1-L2 and is normal. The cauda equina are unremarkable. Perineural cysts of the right L5-S1 and bilateral S1 levels measuring up to 10 mm at the left S1 level. PARAVERTEBRAL SOFT TISSUES: Atrophy of the posterior paraspinous muscles most pronounced in the lower lumbar spine. EVALUATION OF INDIVIDUAL LEVELS DEMONSTRATES: T12-L1: No disc herniation, central canal stenosis or significant foraminal narrowing. L1-2: No disc herniation, central canal stenosis or significant foraminal narrowing. Mild bilateral facet arthrosis is present. L2-3: No disc herniation, central canal stenosis or significant foraminal narrowing. Mild bilateral facet arthrosis. L3-4: Small circumferential disc bulge, small canal, ligamentum flavum hypertrophy and mild facet arthrosis causes bilateral lateral recess narrowing, mild central canal stenosis and mild left without right foraminal narrowing. L4-5: Small diffuse posterior disc bulge with a superimposed left central zone annular fissure, small canal, ligamentum flavum hypertrophy and facet arthrosis causes bilateral lateral recess narrowing, mild central canal stenosis without foraminal narrowing. L5-S1: Small diffuse posterior disc bulge without herniation, central canal, or foraminal stenosis. Perineural cysts are associated with the exiting right L5 and descending bilateral S1 nerve roots. LIMITED EVALUATION OF UPPER SACRUM AND SACROILIAC JOINTS: Mild bilateral degenerative changes. IMPRESSION: 1. Mild multilevel degenerative changes resulting in mild central canal stenosis at L3-L4 and L4-L5. 2. No levels of significant foraminal narrowing. 3. Perineural cysts of the right L5-S1 and bilateral S1 levels. Interpreted by: Vicente Bhatt MD Preliminary Report By: Vicente Bhatt MD Electronically signed By Vicente Bhatt MD Dictated Date: 07/20/2023 2:14:37 PM Prelim Date: 07/20/2023 2:24:04 PM Sign Date: 07/20/2023 2:24:04 PM Ordering Provider: CHRISTA IVERSON [facility] ([place]) CT SOFT TISSUE NECK W/ CONTR Oliverio 05-28-2023 CT SOFT TISSUE NECK W/ CONTRAST ORIGINAL HISTORY: Right parotid swelling COMPARISON: Ultrasound 01 May 2023 TECHNIQUE: Axial CT of the neck following uncomplicated administration of intravenous contrast, with sagittal and coronal reformats. This exam was performed according to our departmental dose optimization program, and includes the following measures where applicable: automated exposure control, adjustment of the mAs and/or kVp according to patient size and/or exam, and an iterative reconstruction algorithm. FINDINGS: There is a left thyroidectomy. There is no lymphadenopathy and there are no soft tissue masses. The major salivary glands including the right parotid gland are unremarkable in appearance. The airway is midline and symmetric. Major vascular structures are patent. The visualized portion of the base of the brain is unremarkable in appearance. There is scarring and emphysematous change in the lung apices. IMPRESSION: Left thyroidectomy. Otherwise unremarkable examination of the neck. Interpreted by: Alden Pisano MD Preliminary Report By: Alden Pisano MD Electronically signed By Alden Pisano MD Dictated Date: 05/28/2023 1:16:44 PM Prelim Date: 05/28/2023 1:19:39 PM Sign Date: 05/28/2023 1:19:39 PM Ordering Provider: CHRISTA IVERSON [facility] ([place]) US SOFT TISSUE MASS OF HEAD OR NECKon 05-04-2023 US SOFT TISSUE MASS OF HEAD OR NECK ORIGINAL EXAMINATION: ULTRASOUND OF THE SOFT TISSUES OF THE HEAD AND NECK05/01/2023 1:13 pm Ultrasound Thyroid COMPARISON: None HISTORY: ORDERING SYSTEM PROVIDED HISTORY: Reason for Exam: right jaw swelling, Ultrasound examination performed of the a cervical tossed tissues with Doppler interrogation. FINDINGS: At the area of the right parotid gland, there are multiple small hypoechoic nodules, the largest measuring 2 x 0.8 x 0.6 cm and next largest measuring 1.9 x 0.9 x 0.8 cm. Multiple nodules demonstrate an eccentric hyperechoic region compatible with a fatty hilum an lymph node. There is no gross fluid collection or inflammatory process. IMPRESSION: 1. The right parotid gland demonstrates multiple enlarged nodes which may be reactive. Correlation with clinical findings for history of infectious or inflammatory process would be useful. Follow-up CT neck would be useful for further characterization. Interpreted by: Alfred Ochoa Preliminary Report By: Alfred Ochoa Electronically signed By Alfred Ochoa Dictated Date: 05/04/2023 9:07:00 PM Prelim Date: 05/04/2023 9:10:42 PM Sign Date: 05/04/2023 9:10:42 PM Ordering Provider: CHRISTA IVERSON [facility] ([place]) XR HIP 3-4 VIEWS BILATERALon 05-03-2023 XR HIP 3-4 VIEWS BILATERAL ORIGINAL EXAMINATION: XRAY VIEWS OF THE BILATERAL HIPS 05/01/2023 1:15 pm COMPARISON: Right hip radiographs, 04/01/2020. HISTORY: ORDERING SYSTEM PROVIDED HISTORY: Reason for Exam: osteoarthritis bilateral hips FINDINGS: On the right, the femoral head is seated within the acetabulum. The joint space is moderately narrowed. No acute fracture, dislocation or radiopaque foreign bodies. On the left side, the femoral head is seated within the acetabulum and the joint space is mildly narrowed. No acute fracture, dislocation or radiopaque foreign bodies on the left side. IMPRESSION: 1. No acute osseous abnormality of the right hip. 2. No acute osseous abnormality of the left hip. 3. Moderate right hip osteoarthritis. 4. Mild left hip osteoarthritis. Interpreted by: Asif Euceda MD Preliminary Report By: Asif Euceda MD Electronically signed By Asif Euceda MD Dictated Date: 05/03/2023 1:14:17 PM Prelim Date: 05/03/2023 1:14:53 PM Sign Date: 05/03/2023 1:14:53 PM Ordering Provider: WILFREDO MELVIN [facility] [place] XR SPINE LUMBAR AP/LATon XR SPINE LUMBAR AP/LAT ORIGINAL EXAMINATION: 3 XRAY VIEWS OF THE LUMBAR SPINE05/01/2023 1:14 pm LUMBAR SPINE 2 or 3 VIEWS COMPARISON: None HISTORY: ORDERING SYSTEM PROVIDED HISTORY: Reason for Exam: lumbar degenerative disc disease FINDINGS: The alignment is normal. Multilevel facet arthropathy noted. Vertebral body heights are within normal limits. Mild marginal disc osteophytes visible. Vascular calcifications seen. IMPRESSION: Multilevel degenerative changes. Interpreted by: Preet Tompkins MD Preliminary Report By: Preet Tompkins MD Electronically signed By Preet Tompkins MD Dictated Date: 05/03/2023 1:40:43 PM Prelim Date: 05/03/2023 1:44:49 PM Sign Date: 05/03/2023 1:44:49 PM Ordering Provider: WILFREDO MELVIN [facility] ([place]) .GFRon 04-27-2023 GFR Non- 63 ml/min/1.73sqm [facility] ([place]) Comment on above: Result Comment: GFR Population mean for , [...] 15 mL/min/1.73 square meters Performed By: #### V IDH, FT4, CMP, TSH, LIPID, GFR #### [address] [address] GFR 76 ml/min/1.73sqm Normal [facility] ([place]) Comment on above: Result Comment: GFR Population mean for , [...] 15 mL/min/1.73 square meters Performed By: #### V IDH, FT4, CMP, TSH, LIPID, GFR #### [address] [address] CMPon 04-27-2023 Albumin Level 3.1 G/dL Low 3.5-5.0 [facility] ([place]) Comment on above: Performed By: #### V IDH, FT4, CMP, TSH, LIPID, GFR #### [address] [address] Albumin/Globulin [Mass ratio] 1.1 {ratio} Normal 1.1-2.5 [facility] ([place]) Comment on above: Performed By: #### V IDH, FT4, CMP, TSH, LIPID, GFR #### [address] [address] ALP [Catalytic activity/Vol] 89 U/L Normal 40-135 [facility] ([place]) Comment on above: Performed By: #### V IDH, FT4, CMP, TSH, LIPID, GFR #### [address] [address] ALT [Catalytic activity/Vol] 18 U/L Normal 14-59 [facility] ([place]) Comment on above: Performed By: #### V IDH, FT4, CMP, TSH, LIPID, GFR #### [address] [address] AST [Catalytic activity/Vol] 22 U/L Normal 10-40 [facility] ([place]) Comment on above: Performed By: #### V IDH, FT4, CMP, TSH, LIPID, GFR #### [address] [address] Bili Total 0.7 mg/dL Normal 0.2-1.0 [facility] ([place]) Comment on above: Result Comment: Use of this assay is not recommended for patients undergoing treatment with eltrombopag due to the potential for falsely elevated results. Performed By: #### V IDH, FT4, CMP, TSH, LIPID, GFR #### [address] [address] BUN/Creatinine Ratio 13 ratio Normal 7-27 [facility] ([place]) Comment on above: Performed By: #### V IDH, FT4, CMP, TSH, LIPID, GFR #### [address] [address] Calcium [Mass/Vol] 9.1 mg/dL Normal 8.4-10.2 [facility] ([place]) Comment on above: Performed By: #### V IDH, FT4, CMP, TSH, LIPID, GFR #### [address] [address] Chloride [Moles/Vol] 103 mmol/L Normal 98-107 [facility] ([place]) Comment on above: Performed By: #### V IDH, FT4, CMP, TSH, LIPID, GFR #### [address] [address] CO2 [Moles/Vol] 29 mmol/L Normal 22-29 [facility] ([place]) Comment on above: Performed By: #### V IDH, FT4, CMP, TSH, LIPID, GFR #### [address] [address] Creatinine [Mass/Vol] 0.93 mg/dL Normal 0.55-1.02 [facility] ([place]) Comment on above: Performed By: #### V IDH, FT4, CMP, TSH, LIPID, GFR #### [address] [address] Electrolyte Balance 13.0 mEq/L Normal 4.0-15.0 [facility] ([place]) Comment on above: Performed By: #### V IDH, FT4, CMP, TSH, LIPID, GFR #### [address] [address] Globulin 2.9 G/dL Normal [facility] ([place]) Comment on above: Performed By: #### V IDH, FT4, CMP, TSH, LIPID, GFR #### [address] [address] Glucose [Mass/Vol] 102 mg/dL Normal 70-105 [facility] ([place]) Comment on above: Performed By: #### V IDH, FT4, CMP, TSH, LIPID, GFR #### [address] [address] Potassium [Moles/Vol] 3.7 mmol/L Normal 3.5-5.1 [facility] ([place]) Comment on above: Performed By: #### V IDH, FT4, CMP, TSH, LIPID, GFR #### [address] [address] Sodium [Moles/Vol] 145 mmol/L Normal 136-145 [facility] ([place]) Comment on above: Performed By: #### V IDH, FT4, CMP, TSH, LIPID, GFR #### [address] [address] Total Protein 6.0 G/dL Low 6.4-8.2 [facility] ([place]) Comment on above: Performed By: #### V IDH, FT4, CMP, TSH, LIPID, GFR #### [address] [address] Urea nitrogen [Mass/Vol] 12 mg/dL Normal 7-18 [facility] ([place]) Comment on above: Performed By: #### V IDH, FT4, CMP, TSH, LIPID, GFR #### [address] [address] FT4on 04-27-2023 Free T4 [Mass/Vol] 0.91 ng/dL Normal 0.76-1.46 [facility] ([place]) Comment on above: Performed By: #### V IDH, FT4, CMP, TSH, LIPID, GFR #### [address] [address] LIPIDon 04-27-2023 Cholesterol [Mass/Vol] 187 mg/dL Normal 0-200 [facility] ([place]) Comment on above: Result Comment: Chol esterol Reference Interval: Less than 200 Desirable 200-239 Borderline high risk 240 and above High risk Performed By: #### V IDH, FT4, CMP, TSH, LIPID, GFR #### [address] [address] Cholesterol in HDL [Mass/Vol] 56 mg/dL Normal 40-60 [facility] ([place]) Comment on above: Performed By: #### V IDH, FT4, CMP, TSH, LIPID, GFR #### [address] [address] Cholesterol in LDL [Mass/Vol] 106 mg/dL Normal 0-130 [facility] ([place]) Comment on above: Performed By: #### V IDH, FT4, CMP, TSH, LIPID, GFR #### [address] [address] Triglyceride [Mass/Vol] 127 mg/dL Normal 0-150 [facility] ([place]) Comment on above: Result Comment: Trig lyceride Reference Interval: Less than 150 Normal 150-199 Borderline high risk 200-499 High risk 500 or higher Very high risk Performed By: #### V IDH, FT4, CMP, TSH, LIPID, GFR #### [address] [address] TSHon 04-27-2023 TSH Qn 0.89 m[IU]/L Normal 0.36-3.74 [facility] ([place]) Comment on above: Performed By: #### V IDH, FT4, CMP, TSH, LIPID, GFR #### [address] [address] VIDHon 04-27-2023 Vit. D 25-Hydroxy 54.0 ng/mL Normal [facility] ([place]) Comment on above: Result Comment: Inte rpretive Values Based on Total 25(OH) Vitamin D: Deficient <20 ng/mL Insufficient 20 - <30 ng/mL Sufficient 30-100 ng/mL Performed By: #### V IDH, FT4, CMP, TSH, LIPID, GFR #### [address] [address] [address] THORAX W/O CONTRASTon CT THORAX W/O CONTRAST ORIGINAL EXAMINATION: CT CHEST WITHOUT CONTRAST 03/15/2023 9:30 am HISTORY: ORDERING SYSTEM PROVIDED HISTORY: Reason for Exam: lung nodules. TECHNIQUE: Multiple-row detector helical CT examination of the thorax without IV contrast. Axial, sagittal, and coronal reconstructed images. This exam was performed according to the departmental dose-optimization program which includes automated exposure control, adjustment of the mA and/or kV according to patient size and/or use of iterative reconstruction technique. COMPARISON: Chest CT 08/31/2022 FINDINGS: There is stable irregular nodular right upper lobe densities on it axial images 16 and 19. There is a stable partially calcified 3 mm nodule on axial image 23.. There are stable juxta fissural and juxtapleural nodular densities along the anterior right middle lobe and anteroinferior right upper lobe which have an appearance compatible with intrapulmonary lymph nodes. A few other scattered small nodular densities are also unchanged. The airways are unremarkable. There is stable emphysema. There is no pleural or pericardial effusion. The thoracic aortic caliber is within normal limits. The heart is normal in size. There are no enlarged lymph nodes. The imaged portion of the abdomen is unremarkable. There is no acute bony abnormality. IMPRESSION: Stable lung nodules. Emphysema. Interpreted by: Miguel Angel Jolley Preliminary Report By: Miguel Angel Jolley Electronically signed By Miguel Angel Jolley Dictated Date: 03/15/2023 11:01:25 AM Prelim Date: 03/15/2023 11:09:06 AM Sign Date: 03/15/2023 11:09:06 AM Ordering Provider: CHRISTA IVERSON Normal [facility] ([place]) DIMERon 03-13-2023 D-Dimer <200 Normal 0-230 [facility] ([place]) Comment on above: Result Comment: DDN: Results reported in D-DU ng/mL. Negative for D-dimer. DVT/PE is highly unlikely. Note: False negative results may be seen in patients on anticoagulant therapy. The result of the D-Dimer test should be evaluated in the context of all the clinical and laboratory data available. In those instances where the laboratory result does not agree with the clinical evaluation, additional tests should be performed accordingly. If the D-Dimer result is used to exclude DVT or PE, the recommended cutoff value is less than 230 ng/mL. The D-Dimer result should not be used alone to rule in DVT/PE, but should be used in conjunction with a clinical pretest probability (PTP)assessment model to exclude venous thromboembolism (VTE) in outpatients suspected of deep venous thrombosis (DVT) and pulmonary embolism (PE). Performed By: #### V IDH, FT4, CMP, TSH, LIPID, GFR #### [address] [place] [id number] [place], [place] [address] BD BONE DENSITY DEXA AXIAL S [facility] 01-03-2023 BD BONE DENSITY DEXA AXIAL SKELETON ORIGINAL EXAMINATION: BONE DENSITOMETRY 01/03/2023 1:14 pm TECHNIQUE: A bone density dual x-ray absorptiometry (DEXA) scan was performed of the lumbar spine and left hip. COMPARISON: None. HISTORY: Reason for Exam: Osteoporosis Screening FINDINGS: BMD (g/cm2) Lumbar Spine L1-L4: 0.923. T Score Lumbar Spine L1-L4: -1.1 BMD (g/cm2) Left Femoral Neck: 0.784. T Score Left Femoral Neck: -0.6 BMD (g/cm2) Left Hip: 0.934. T Score Left Hip: -0.1 FRAX: 10 year fracture risk assessment Major osteoporotic fracture: 5.3% Hip fracture: 0.3% IMPRESSION: Osteopenia. I have personally reviewed the images of this examination and agree with the resident's findings and interpretation. Interpreted by: Selene Ng MD Preliminary Report By: Robi Dimas Electronically signed By Selene Ng MD Dictated Date: 01/03/2023 2:46:10 PM Prelim Date: 01/03/2023 3:01:57 PM Sign Date: 01/03/2023 3:01:57 PM Ordering Provider: CHRISTA IVERSON Normal [facility] [facility] [place] [facility] [place] Send Out (Non Blood) See Comments Normal [facility] ([place] Comment on above: Order Comment: fecal fat Result Comment: Comp lete reference lab report scanned to EMR. Performed By: #### V IDH, FT4, CMP, TSH, LIPID, GFR #### [address] [address] CALPROon 12-28-2022 Calprotectin, Fecal Quantitative 69.5 ug/g High <50 [facility] ([place]) Comment on above: Result Comment: Perf ormed By: [address] [place] [address] Natural Resource Economist: Beto Walsh III, M.D. CLIA#: [id number] Performed By: #### V IDH, FT4, CMP, TSH, LIPID, GFR #### [address] [address] PANCEFon 12-28-2022 Elastase Interpretation Normal Normal Normal [facility]) Comment on above: Result Comment: Perf ormed By: [facility] [address] [place] [address] Natural Resource Economist: Beto Walsh III, M.D. CLIA#: [id number] Performed By: #### V IDH, FT4, CMP, TSH, LIPID, GFR #### [address] [address] Elastase-1 Concentration >800 Normal >=200 [facility] ([place]) Comment on above: Result Comment: Inte rpretation: <100 ug/g: Severe Exocrine Pancreatic Insufficiency 100-199 ug/g: Mild to Moderate Exocrine Pancreatic Insufficiency >=200 ug/g: Normal Performed By: [place] [address] Natural Resource Economist: Beto Walsh III, M.D. CLIA#: [id number] Performed By: #### V IDH, FT4, CMP, TSH, LIPID, GFR #### [address] [address] HPYLAGon 12-27-2022 H pylori Ag EIA Stool See Below Abnormal Negative for H. Pylori antigen by EIA [facility] ([place]) Comment on above: Result Comment: H.PY GAEL EIA RESULT Positive for Helicobacter pylori antigen by EIA SOURCE: STOOL Performed By: [place] [address] Natural Resource Economist: Beto Walsh III, M.D. CLIA#: [id number] Performed By: #### V IDH, FT4, CMP, TSH, LIPID, GFR #### [place] [id number] CDIFFAOon 12-26-2022 Clostridium difficile toxin A/B PCR Negative Normal Negative [facility] ([place]) Comment on above: Performed By: #### V IDH, FT4, CMP, TSH, LIPID, GFR #### [place] [id number] Clostridium difficile toxin A/B PCR Int Normal [facility] ([place]) Comment on above: Result Comment: Jesus s C. difficile Negative result does not rule out the possibility of infection with toxigenic C. difficile. Jovi C. difficile Assay results should not be used as the sole basis for diagnosis, treatment, or patient management decisions and should be interpreted in conjunction with other clinical and laboratory findings. See Below Performed By: #### V IDH, FT4, CMP, TSH, LIPID, GFR #### [place] [id number] LABORATORYOrdered By: Katerin Samaniego on 12-26-2022 [facility] [place] Send Out (Non Blood) See Comments 6 (12/26/22 12:16 PM) Invalid Interpretation Code AO Sendouts SS Comment on above: Result Comment: Rafa cleaning reference lab report scanned to EMR. LABORATORYOrdered By: Blanca Mckeony on 12-26-2022 Adenovirus 40+41 DNA NAV+non-probe Ql (Stl) Not Detected *NA* (12/26/22 10:47 AM) Invalid Interpretation Code Not Detected AH Auto Microbiology GL SS Astrovirus subtypes 1-8 RNA NAV+non-probe Ql (Stl) Not Detected *NA* (12/26/22 10:47 AM) Invalid Interpretation Code Not Detected AH Auto Microbiology GL SS C. cayetanensis DNA NAV+non-probe Ql (Stl) Not Detected *NA* (12/26/22 10:47 AM) Invalid Interpretation Code Not Detected AH Auto Microbiology GL SS C. coli+jejuni+upsalien sis DNA NAV+non-probe Ql (Stl) Not Detected *NA* (12/26/22 10:47 AM) Invalid Interpretation Code Not Detected AH Auto Microbiology GL SS Cryptosporidium sp DNA NAV+non-probe Ql (Stl) Not Detected *NA* (12/26/22 10:47 AM) Invalid Interpretation Code Not Detected AH Auto Microbiology GL SS E. coli enteroaggregative Mojgan plasmid aggR+aatA genes NAV+non-probe Ql (Stl) Not Detected *NA* (12/26/22 10:47 AM) Invalid Interpretation Code Not Detected AH Auto Microbiology GL SS E. coli enteropathogenic eae gene NAV+non-probe Ql (Stl) Not Detected *NA* (12/26/22 10:47 AM) Invalid Interpretation Code Not Detected AH Auto Microbiology GL SS E. coli enterotoxigenic ltA+st1a+st1b genes NAV+non-probe Ql (Stl) Not Detected *NA* (12/26/22 10:47 AM) Invalid Interpretation Code Not Detected AH Auto Microbiology GL SS E. coli O157 DNA NAV+non-probe Ql (Stl) Not Applicable (12/26/22 10:47 AM) Invalid Interpretation Code Not Detected AH Auto Microbiology GL SS E. coli stx1+stx2 genes NAV+non-probe Ql (Stl) Not Detected *NA* (12/26/22 10:47 AM) Invalid Interpretation Code Not Detected AH Auto Microbiology GL SS E. histolytica DNA NAV+non-probe Ql (Stl) Not Detected *NA* (12/26/22 10:47 AM) Invalid Interpretation Code Not Detected AH Auto Microbiology GL SS G. lamblia DNA NAV+non-probe Ql (Stl) Not Detected *NA* (12/26/22 10:47 AM) Invalid Interpretation Code Not Detected AH Auto Microbiology GL SS Norovirus genogroup I+II RNA NAV+non-probe Ql (Stl) Not Detected *NA* (12/26/22 10:47 AM) Invalid Interpretation Code Not Detected AH Auto Microbiology GL SS Plesiomonas shigelloides Not Detected *NA* (12/26/22 10:47 AM) Invalid Interpretation Code Not Detected AH Auto Microbiology GL SS Rotavirus A RNA NAV+non-probe Ql (Stl) Not Detected *NA* (12/26/22 10:47 AM) Invalid Interpretation Code Not Detected AH Auto Microbiology GL SS S. enterica+bongori DNA NAV+non-probe Ql (Stl) Not Detected *NA* (12/26/22 10:47 AM) Invalid Interpretation Code Not Detected AH Auto Microbiology GL SS Sapovirus genogroups I+II+IV+V RNA NAV+non-probe Ql (Stl) Not Detected *NA* (12/26/22 10:47 AM) Invalid Interpretation Code Not Detected AH Auto Microbiology GL SS Shigella species+EIEC invasion plasmid antigen H ipaH gene NAV+non-probe Ql (Stl) Not Detected *NA* (12/26/22 10:47 AM) Invalid Interpretation Code Not Detected AH Auto Microbiology GL SS Stool GI Comment See Comment 2 (12/26/22 10:47 AM) Invalid Interpretation Code AH Auto Microbiology GL SS Comment on above: Interpretive Data: V irus, bacteria, and parasite nucleic acid may persist in vivo independently of organism viability. Negative Film Array GI panel results in the setting of clinical illness compatible with gastroenteritis may be due to infection by pathogens that are not detected by this test. False negatives may occur due to genetic variability in the region targeted by the primers. V. cholerae DNA NAV+non-probe Ql (Stl) Not Detected *NA* (12/26/22 10:47 AM) Invalid Interpretation Code Not Detected AH Auto Microbiology GL SS V. cholerae+parahaemoly ticus+vulnificus DNA NAV+non-probe Ql (Stl) Not Detected *NA* (12/26/22 10:47 AM) Invalid Interpretation Code Not Detected AH Auto Microbiology GL SS Y. enterocolitica DNA NAV+non-probe Ql (Stl) Not Detected *NA* (12/26/22 10:47 AM) Invalid Interpretation Code Not Detected AH Auto Microbiology GL SS LABORATORYOrdered By: MICHELA CROSS CONTRIBUTOR_SYSTEM on 12-26-2022 Elastase Interpretation Normal Invalid Interpretation Code Normal AO Sendouts SS Comment on above: Result Comment: Perf ormed By: [place] [address] Natural Resource Economist: Beto Walsh III, M.D. CLIA#: [id number] Elastase-1 Concentration ug/g 1 Invalid Interpretation Code >=200 AO Sendouts SS Comment on above: Result Comment: Inte rpretation: <100 ug/g: Severe Exocrine Pancreatic Insufficiency 100-199 ug/g: Mild to Moderate Exocrine Pancreatic Insufficiency >=200 ug/g: Normal Performed By: [facility] [address] [place] [address] Natural Resource Economist: Beto Walsh III, M.D. CLIA#: [id number] H pylori Ag EIA Stool See Below Invalid Interpretation Code Negative for H. Pylori antigen by EIA AO Sendouts SS Comment on above: Result Comment: H.PY GAEL EIA RESULT Positive for Helicobacter pylori antigen by EIA SOURCE: STOOL Performed By: [facility] [address] [place] [address] Natural Resource Economist: Beto Walsh III, M.D. CLIA#: [id number] Calprotectin, Fecal Quantitative 69.5 1 Invalid Interpretation Code <50 AO Sendouts SS Comment on above: Result Comment: Perf ormed By: [facility] [address] [place] [address] Natural Resource Economist: Beto Walsh III, M.D. CLIA#: [id number] LABORATORYOrdered By: Bette Minor on 12-26-2022 C. difficile toxin A+B tcdA+tcdB genes NAV+probe Ql (Stl) Negative *NA* (12/26/22 10:46 AM) Invalid Interpretation Code Negative AO Auto Urine SS Clostridium difficile toxin A/B PCR Int Jovi C. difficile Negative result does not rule out the possibility of infection with toxigenic C. difficile. Jovi C. difficile Assay results should not be used as the sole basis for diagnosis, treatment, or patient management decisions and should be interpreted in conjunction with other clinical and laboratory findings. Invalid Interpretation Code AO Auto Urine SS No Panel Informationon 12-26 Shiga Toxins 1 and 2 Absence of Shiga to devante 1 Absence of Shiga toxin 2 [facility] Comment on above: Testing performed by immunochromatography. Culture Stool Normal stool manuel p resent. Salmonella: Negative Shigella: Negative Campylobacter: Negative [facility] Comment on above: Requests for alterna tive pathogens including Yersinia, E. coli 0157, C. difficile toxin, Rotavirus, Giardia and parasites require specific requests. Giardia Antigen Giardia Antigen by E IA: Negative A single diagnostic assay should not be used as the basis for forming a clinical conclusion. Giardia antigens are shed very sporadically. It is recommended that two separate stools be tested for Giardia antigen. If both are negative, then it is less likely that Giardia is present. Results should be supported by correlation with the patient symptoms and the overall clinical picture. [facility] Fecal Leukocytes Microscopy: Fecal Leukocytes Absent From our data, approximately 50% of enteroinvasive bacterial pathogens will not be associated with stool WBC's. [facility] STGIPCRon 12-26-2022 E. coli O157 Not Applicable Normal Not Detected [facility] ([place]) Comment on above: Performed By: #### V IDH, FT4, CMP, TSH, LIPID, GFR #### [address] [place], [place] [address] Adenovirus F 40/41 Not detected Normal Not Detected [facility] ([place]) Comment on above: Performed By: #### V IDH, FT4, CMP, TSH, LIPID, GFR #### [address] [address] Astrovirus Not detected Normal Not Detected [facility] ([place]) Comment on above: Performed By: #### V IDH, FT4, CMP, TSH, LIPID, GFR #### [address] [address] Campy (jejuni/coli/ups) Not detected Normal Not Detected [facility] ([place] Comment on above: Performed By: #### V IDH, FT4, CMP, TSH, LIPID, GFR #### [address] [address] Cryptosporidium Not detected Normal Not Detected [facility] ([place] Comment on above: Performed By: #### V IDH, FT4, CMP, TSH, LIPID, GFR #### [address] [address] Cyclospora Not detected Normal Not Detected [facility] ([place] Comment on above: Performed By: #### V IDH, FT4, CMP, TSH, LIPID, GFR #### [address] [address] E. coli (ETEC) Not detected Normal Not Detected [facility] ([place] Comment on above: Performed By: #### V IDH, FT4, CMP, TSH, LIPID, GFR #### [address] [address] Entamoeba histolytica Not detected Normal Not Detected [facility] ([place] Comment on above: Performed By: #### V IDH, FT4, CMP, TSH, LIPID, GFR #### [address] [address] Enteroaggregative E. coli (EAEC) Not detected Normal Not Detected [facility] ([place] Comment on above: Performed By: #### V IDH, FT4, CMP, TSH, LIPID, GFR #### [address] [address] Enteropathogenic E. coli (EPEC) Not detected Normal Not Detected [facility] ([place] Comment on above: Performed By: #### V IDH, FT4, CMP, TSH, LIPID, GFR #### [address] [address] Giardia lamblia Not detected Normal Not Detected [facility] [place] Comment on above: Performed By: #### V IDH, FT4, CMP, TSH, LIPID, GFR #### [address] [address] Norovirus GI/GII Not detected Normal Not Detected [facility] ([place] Comment on above: Performed By: #### V IDH, FT4, CMP, TSH, LIPID, GFR #### [place] [address] Plesiomonas shigelloides Not detected Normal Not Detected [facility] [place] Comment on above: Performed By: #### V IDH, FT4, CMP, TSH, LIPID, GFR #### [place] [address] Rotavirus A Not detected Normal Not Detected [facility] [place] Comment on above: Performed By: #### V IDH, FT4, CMP, TSH, LIPID, GFR #### [place] [address] Salmonella species, stool Not detected Normal Not Detected [facility] [place] Comment on above: Performed By: #### V IDH, FT4, CMP, TSH, LIPID, GFR #### [place] [address] Sapovirus I,II,IV,V Not detected Normal Not Detected [facility] ([place] Comment on above: Performed By: #### V IDH, FT4, CMP, TSH, LIPID, GFR #### [address] [address] Shig Tox E. coli (STEC) Not detected Normal Not Detected [facility] [place] Comment on above: Performed By: #### V IDH, FT4, CMP, TSH, LIPID, GFR #### [place] [address] Shigella/Enteroinvas marcial E. coli (EIEC) Not detected Normal Not Detected [facility] ([place] Comment on above: Performed By: #### V IDH, FT4, CMP, TSH, LIPID, GFR #### [place] [id number] Stool GI Comment See Comment Normal [facility] [place] Comment on above: Result Comment: Viru s, bacteria, and parasite nucleic acid may persist in vivo independently of organism viability. Negative Film Array GI panel results in the setting of clinical illness compatible with gastroenteritis may be due to infection by pathogens that are not detected by this test. False negatives may occur due to genetic variability in the region targeted by the primers. Performed By: #### V IDH, FT4, CMP, TSH, LIPID, GFR #### [place] [address] Vibrio cholerae Not detected Normal Not Detected [facility] ([place] Comment on above: Performed By: #### V IDH, FT4, CMP, TSH, LIPID, GFR #### [place] [id number] Vibrio par/vul/chol Not detected Normal Not Detected [facility] [place] Comment on above: Performed By: #### V IDH, FT4, CMP, TSH, LIPID, GFR #### [place] [address] Yersinia enterocolitica Not detected Normal Not Detected [facility] [place] Comment on above: Performed By: #### V IDH, FT4, CMP, TSH, LIPID, GFR #### [place] [id number] ENDOon 12-25-2022 TTG Ab (IgA) <4.0 Normal <=3.9 [facility] [place] Comment on above: Result Comment: Effe ctive 10/24/2022: Evaluation of Transglutaminase Ab (IgA) results: Negative: Less than 4.0 Weak positive: 4.0 to 10.0 Positive: Greater than 10.0 Transglutaminase Ab is present in approximately 95% to 100% of patients with celiac disease and 80% of patients with dermatitis herpetiformis. The antibody is rarely found in other conditions. Transglutaminase Ab levels will decrease or increase depending on the removal or reintroduction of gluten into the diet. Patients who are IgA deficient develop celiac disease more frequently than individuals who have an intact IgA system. Therefore, gliadin and transglutaminase IgA antibodies may be absent in patients with celiac disease. IgG antibodies to gliadin are especially helpful in IgA deficient patients. These test results were obtained with the [employer] R-tTG IgA NESTOR. R-tTG IgA values obtained with different manufacturers' assay methods may not be used interchangeably. Performed By: #### V IDH, FT4, CMP, TSH, LIPID, GFR #### [address] [address] GLIADon 12-25-2022 Gliadin Ab IgA <20 Normal <=19 [facility] ([place]) Comment on above: Result Comment: Glia din IgG and IgA Ab Interpretation (effective 02/26/07): Result Units Negative <20 Weak Positive 20-30 Moderate to Strong Positive >30 Both IgG and IgA antibodies to gliadin are present in most patients with celiac disease (CD). However, antibody to gliadin may be present in Crohn's disease, dermatitis herpetiformis or in subjects with no clinical evidence of intestinal disease. In healthy individuals with a family history of CD, the antibodies may precede the clinical onset of disease in approximately 25% of the subjects. Gliadin antibody levels will decrease or increase depending on the removal or reintroduction of gluten into the diet. Patients who are IgA deficient develop celiac disease more frequently than individuals who have an intact IgA system. Therefore, gliadin and transglutaminase IgA antibodies may be absent in patients with celiac disease. IgG antibodies to gliadin are especially helpful in IgA deficient patients. A negative result indicates no gliadin antibody or levels below the negative cut-off of the assay. Results of this assay should be used in conjunction with clinical findings and other serological tests. These test results were obtained with the [employer] QUANTA Lite Gliadin IgG II and Gliadin IgA II. Gliadin values obtained with different manufacturers' assay methods may not be used interchangeably. Performed By: #### V IDH, FT4, CMP, TSH, LIPID, GFR #### [address] [address] Gliadin Ab IgG <20 Normal <=19 [facility] ([place]) Comment on above: Result Comment: Glia din IgG and IgA Ab Interpretation (effective 02/26/07): Result Units Negative <20 Weak Positive 20-30 Moderate to Strong Positive >30 Both IgG and IgA antibodies to gliadin are present in most patients with celiac disease (CD). However, antibody to gliadin may be present in Crohn's disease, dermatitis herpetiformis or in subjects with no clinical evidence of intestinal disease. In healthy individuals with a family history of CD, the antibodies may precede the clinical onset of disease in approximately 25% of the subjects. Gliadin antibody levels will decrease or increase depending on the removal or reintroduction of gluten into the diet. Patients who are IgA deficient develop celiac disease more frequently than individuals who have an intact IgA system. Therefore, gliadin and transglutaminase IgA antibodies may be absent in patients with celiac disease. IgG antibodies to gliadin are especially helpful in IgA deficient patients. A negative result indicates no gliadin antibody or levels below the negative cut-off of the assay. Results of this assay should be used in conjunction with clinical findings and other serological tests. These test results were obtained with the [employer] QUANTA Lite Gliadin IgG II and Gliadin IgA II. Gliadin values obtained with different manufacturers' assay methods may not be used interchangeably. Performed By: #### V IDH, FT4, CMP, TSH, LIPID, GFR #### [address] [place], [place] [address] .GFRon 12-23-2022 GFR 84 ml/min/1.73sqm Normal [facility] ([place]) Comment on above: Result Comment: GFR Population mean for , [...] 15 mL/min/1.73 square meters Performed By: #### V IDH, FT4, CMP, TSH, LIPID, GFR #### [address] [address] GFR Non- 69 ml/min/1.73sqm Normal [facility] ([place]) Comment on above: Result Comment: GFR Population mean for , [...] 15 mL/min/1.73 square meters Performed By: #### V IDH, FT4, CMP, TSH, LIPID, GFR #### [address] [address] CMPon 12-23-2022 Albumin Level 3.4 G/dL Low 3.5-5.0 [facility] ([place]) Comment on above: Performed By: #### V IDH, FT4, CMP, TSH, LIPID, GFR #### [address] [address] Albumin/Globulin [Mass ratio] 1.2 {ratio} Normal 1.1-2.5 [facility] ([place]) Comment on above: Performed By: #### V IDH, FT4, CMP, TSH, LIPID, GFR #### [address] [address] ALP [Catalytic activity/Vol] 89 U/L Normal 40-135 [facility] ([place]) Comment on above: Performed By: #### V IDH, FT4, CMP, TSH, LIPID, GFR #### [address] [address] ALT [Catalytic activity/Vol] 17 U/L Normal 14-59 [facility] ([place]) Comment on above: Performed By: #### V IDH, FT4, CMP, TSH, LIPID, GFR #### [address] [address] AST [Catalytic activity/Vol] 22 U/L Normal 10-40 [facility] ([place]) Comment on above: Performed By: #### V IDH, FT4, CMP, TSH, LIPID, GFR #### [address] [address] Bili Total 0.5 mg/dL Normal 0.2-1.0 [facility] ([place]) Comment on above: Result Comment: Use of this assay is not recommended for patients undergoing treatment with eltrombopag due to the potential for falsely elevated results. Performed By: #### V IDH, FT4, CMP, TSH, LIPID, GFR #### [address] [address] BUN/Creatinine Ratio 18 ratio Normal 7-27 [facility] ([place]) Comment on above: Performed By: #### V IDH, FT4, CMP, TSH, LIPID, GFR #### [address] [address] Calcium [Mass/Vol] 8.1 mg/dL Low 8.4-10.2 [facility] ([place]) Comment on above: Performed By: #### V IDH, FT4, CMP, TSH, LIPID, GFR #### [address] [address] Chloride [Moles/Vol] 102 mmol/L Normal 98-107 [facility] ([place]) Comment on above: Performed By: #### V IDH, FT4, CMP, TSH, LIPID, GFR #### [address] [address] CO2 [Moles/Vol] 27 mmol/L Normal 22-29 [facility] ([place]) Comment on above: Performed By: #### V IDH, FT4, CMP, TSH, LIPID, GFR #### [address] [address] Creatinine [Mass/Vol] 0.85 mg/dL Normal 0.55-1.02 [facility] ([place]) Comment on above: Performed By: #### V IDH, FT4, CMP, TSH, LIPID, GFR #### [address] [address] Electrolyte Balance 10.0 mEq/L Normal 4.0-15.0 [facility] ([place]) Comment on above: Performed By: #### V IDH, FT4, CMP, TSH, LIPID, GFR #### [address] [address] Globulin 2.9 G/dL Normal [facility] ([place]) Comment on above: Performed By: #### V IDH, FT4, CMP, TSH, LIPID, GFR #### [address] [address] Glucose [Mass/Vol] 92 mg/dL Normal 70-105 [facility] ([place]) Comment on above: Performed By: #### V IDH, FT4, CMP, TSH, LIPID, GFR #### [address] [address] Potassium [Moles/Vol] 3.4 mmol/L Low 3.5-5.1 [facility] ([place]) Comment on above: Performed By: #### V IDH, FT4, CMP, TSH, LIPID, GFR #### [address] [address] Sodium [Moles/Vol] 139 mmol/L Normal 136-145 [facility] ([place]) Comment on above: Performed By: #### V IDH, FT4, CMP, TSH, LIPID, GFR #### [address] [address] Total Protein 6.3 G/dL Low 6.4-8.2 [facility] ([place]) Comment on above: Performed By: #### V IDH, FT4, CMP, TSH, LIPID, GFR #### [address] [address] Urea nitrogen [Mass/Vol] 15 mg/dL Normal 7-18 [facility] ([place]) Comment on above: Performed By: #### V IDH, FT4, CMP, TSH, LIPID, GFR #### [address] [place], [place] [address] IGAon 12-23-2022 IgA [Mass/Vol] 51 mg/dL Normal 40-350 [facility] ([place]) Comment on above: Result Comment: No te - New Reference Range in effect 19 Performed By: #### V IDH, FT4, CMP, TSH, LIPID, GFR #### [address] [place], [place] [address] LABORATORYOrdered By: SYSTEM SYSTEM on 12-23-2022 Albumin BCP dye [Mass/Vol] 3.4 G/dL Invalid Interpretation Code 3.5 - 5.0 G/dL AO ADM SS Albumin/Globulin [Mass ratio] 1.2 {ratio} Invalid Interpretation Code 1.1 - 2.5 ratio AO ADM SS ALP [Catalytic activity/Vol] 89 U/L Invalid Interpretation Code 40 - 135 U/L AO ADM SS ALT With P-5'-P [Catalytic activity/Vol] 17 U/L Invalid Interpretation Code 14 - 59 U/L AO ADM SS AST With P-5'-P [Catalytic activity/Vol] 22 U/L Invalid Interpretation Code 10 - 40 U/L AO ADM SS Bilirubin [Mass/Vol] 0.5 mg/dL Invalid Interpretation Code 0.2 - 1.0 mg/dL AO ADM SS Comment on above: Interpretive Data: U se of this assay is not recommended for patients undergoing treatment with eltrombopag due to the potential for falsely elevated results. Calcium [Mass/Vol] 8.1 mg/dL Invalid Interpretation Code 8.4 - 10.2 mg/dL AO ADM SS Chloride [Moles/Vol] 102 mmol/L Invalid Interpretation Code 98 - 107 mmol/L AO ADM SS CO2 [Moles/Vol] 27 mmol/L Invalid Interpretation Code 22 - 29 mmol/L AO ADM SS Creatinine [Mass/Vol] 0.85 mg/dL Invalid Interpretation Code 0.55 - 1.02 mg/dL AO ADM SS Electrolyte Balance 10.0 mEq/L Invalid Interpretation Code 4.0 - 15.0 mEq/L AO ADM SS GFR/1.73 sq M.predicted among blacks MDRD (S/P/Bld) [Vol rate/Area] 84 ml/min/1.73sqm Invalid Interpretation Code AO Chemistry S Comment on above: Interpretive Data: GFR Population mean for , Non- Americans Ages 20-29 = 116 mL/min/1.73 sq.m. Ages 30-39 = 107 mL/min/1.73 sq.m. Ages 40-49 = 99 mL/min/1.73 sq.m. Ages 50-59 = 93 mL/min/1.73 sq.m. Ages 60-69 = 85 mL/min/1.73 sq.m. Ages 70+ = 75 mL/min/1.73 sq.m. Chronic Kidney Disease: Less than 60 mL/min/1.73 square meters End Stage Renal Disease: Less than 15 mL/min/1.73 square meters GFR/1.73 sq M.predicted among non-blacks MDRD (S/P/Bld) [Vol rate/Area] 69 ml/min/1.73sqm Invalid Interpretation Code AO Chemistry S Comment on above: Interpretive Data: GFR Population mean for , Non- Americans Ages 20-29 = 116 mL/min/1.73 sq.m. Ages 30-39 = 107 mL/min/1.73 sq.m. Ages 40-49 = 99 mL/min/1.73 sq.m. Ages 50-59 = 93 mL/min/1.73 sq.m. Ages 60-69 = 85 mL/min/1.73 sq.m. Ages 70+ = 75 mL/min/1.73 sq.m. Chronic Kidney Disease: Less than 60 mL/min/1.73 square meters End Stage Renal Disease: Less than 15 mL/min/1.73 square meters Globulin 2.9 G/dL Invalid Interpretation Code AO ADM SS Glucose [Mass/Vol] 92 mg/dL Invalid Interpretation Code 70 - 105 mg/dL AO ADM SS IgA [Mass/Vol] 51 mg/dL Invalid Interpretation Code 40 - 350 mg/dL AH ADM SS Comment on above: Interpretive Data: * *Note - New Reference Range in effect 19 Potassium [Moles/Vol] 3.4 mmol/L Invalid Interpretation Code 3.5 - 5.1 mmol/L AO ADM SS Protein [Mass/Vol] 6.3 G/dL Invalid Interpretation Code 6.4 - 8.2 G/dL AO ADM SS Sodium [Moles/Vol] 139 mmol/L Invalid Interpretation Code 136 - 145 mmol/L AO ADM SS TSH Qn 1.20 m[IU]/L Invalid Interpretation Code 0.36 - 3.74 mcIU/mL AO ADM SS Urea nitrogen [Mass/Vol] 15 mg/dL Invalid Interpretation Code 7 - 18 mg/dL AO ADM SS Urea nitrogen/Creatinine [Mass ratio] 18 ratio Invalid Interpretation Code 7 - 27 ratio AO ADM SS TSHon 12-23-2022 TSH Qn 1.20 m[IU]/L Normal 0.36-3.74 [facility] ([place]) Comment on above: Performed By: #### T SH #### [address] [address] CDIFFAOon 12-20-2022 Clostridium difficile toxin A/B PCR Negative Normal Negative [facility] ([place]) Comment on above: Performed By: #### V IDH, FT4, CMP, TSH, LIPID, GFR #### [address] [address] Clostridium difficile toxin A/B PCR Int Normal [facility] ([place]) Comment on above: Result Comment: Jesus s C. difficile Negative result does not rule out the possibility of infection with toxigenic C. difficile. Jovi C. difficile Assay results should not be used as the sole basis for diagnosis, treatment, or patient management decisions and should be interpreted in conjunction with other clinical and laboratory findings. See Below Performed By: #### V IDH, FT4, CMP, TSH, LIPID, GFR #### [address] [address] LABORATORYOrdered By: Katerin Samaniego on 12-20-2022 C. difficile toxin A+B tcdA+tcdB genes NAV+probe Ql (Stl) Negative *NA* (12/20/22 4:35 PM) Invalid Interpretation Code Negative AO Auto Urine SS Clostridium difficile toxin A/B PCR Int Jovi C. difficile Negative result does not rule out the possibility of infection with toxigenic C. difficile. Jovi C. difficile Assay results should not be used as the sole basis for diagnosis, treatment, or patient management decisions and should be interpreted in conjunction with other clinical and laboratory findings. Invalid Interpretation Code AO Auto Urine SS .GFRon 12-19-2022 GFR 85 ml/min/1.73sqm Normal [facility] ([place]) Comment on above: Result Comment: GFR Population mean for , [...] 15 mL/min/1.73 square meters Performed By: #### V IDH, FT4, CMP, TSH, LIPID, GFR #### [address] [address] GFR Non- 70 ml/min/1.73sqm Normal [facility] ([place]) Comment on above: Result Comment: GFR Population mean for , [...] 15 mL/min/1.73 square meters Performed By: #### V IDH, FT4, CMP, TSH, LIPID, GFR #### [address] [address] BMPon 12-19-2022 BUN/Creatinine Ratio 19 ratio Normal 7- [facility] ([place]) Comment on above: Performed By: #### V IDH, FT4, CMP, TSH, LIPID, GFR #### [address] [address] Calcium [Mass/Vol] 9.1 mg/dL Normal 8.4-10.2 [facility] ([place]) Comment on above: Performed By: #### V IDH, FT4, CMP, TSH, LIPID, GFR #### [address] [address] Chloride [Moles/Vol] 98 mmol/L Normal 98-107 [facility] ([place]) Comment on above: Performed By: #### V IDH, FT4, CMP, TSH, LIPID, GFR #### [address] [address] CO2 [Moles/Vol] 29 mmol/L Normal 22-29 [facility] ([place]) Comment on above: Performed By: #### V IDH, FT4, CMP, TSH, LIPID, GFR #### [address] [address] Creatinine [Mass/Vol] 0.84 mg/dL Normal 0.55-1.02 [facility] ([place]) Comment on above: Performed By: #### V IDH, FT4, CMP, TSH, LIPID, GFR #### [address] [address] Electrolyte Balance 11.0 mEq/L Normal 4.0-15.0 [facility] ([place]) Comment on above: Performed By: #### V IDH, FT4, CMP, TSH, LIPID, GFR #### [address] [address] Glucose [Mass/Vol] 105 mg/dL Normal 70-105 [facility] ([place]) Comment on above: Performed By: #### V IDH, FT4, CMP, TSH, LIPID, GFR #### [address] [address] Potassium [Moles/Vol] 3.4 mmol/L Low 3.5-5.1 [facility] ([place]) Comment on above: Performed By: #### V IDH, FT4, CMP, TSH, LIPID, GFR #### [address] [address] Sodium [Moles/Vol] 138 mmol/L Normal 136-145 [facility] ([place]) Comment on above: Performed By: #### V IDH, FT4, CMP, TSH, LIPID, GFR #### [address] [place], [place] [address] Urea nitrogen [Mass/Vol] 16 mg/dL Normal 7-18 [facility] ([place]) Comment on above: Performed By: #### V IDH, FT4, CMP, TSH, LIPID, GFR #### [address] [place], [place] [address] LABORATORYOrdered By: SYSTEM SYSTEM on 11-15-2022 Calcium [Mass/Vol] 9.1 mg/dL Invalid Interpretation Code 8.4 - 10.2 mg/dL AO ADM SS Chloride [Moles/Vol] 101 mmol/L Invalid Interpretation Code 98 - 107 mmol/L AO ADM SS CO2 [Moles/Vol] 32 mmol/L Invalid Interpretation Code 22 - 29 mmol/L AO ADM SS Cobalamin (Vitamin B12) [Mass/Vol] 324 pg/mL Invalid Interpretation Code 211 - 911 pg/mL AH ADM SS Creatinine [Mass/Vol] 1.00 mg/dL Invalid Interpretation Code 0.55 - 1.02 mg/dL AO ADM SS Electrolyte Balance 8.0 mEq/L Invalid Interpretation Code 4.0 - 15.0 mEq/L AO ADM SS GFR/1.73 sq M.predicted among blacks MDRD (S/P/Bld) [Vol rate/Area] 70 ml/min/1.73sqm Invalid Interpretation Code AO Chemistry S Comment on above: Interpretive Data: GFR Population mean for , Non- Americans Ages 20-29 = 116 mL/min/1.73 sq.m. Ages 30-39 = 107 mL/min/1.73 sq.m. Ages 40-49 = 99 mL/min/1.73 sq.m. Ages 50-59 = 93 mL/min/1.73 sq.m. Ages 60-69 = 85 mL/min/1.73 sq.m. Ages 70+ = 75 mL/min/1.73 sq.m. Chronic Kidney Disease: Less than 60 mL/min/1.73 square meters End Stage Renal Disease: Less than 15 mL/min/1.73 square meters GFR/1.73 sq M.predicted among non-blacks MDRD (S/P/Bld) [Vol rate/Area] 58 ml/min/1.73sqm Invalid Interpretation Code AO Chemistry S Comment on above: Interpretive Data: GFR Population mean for , Non- Americans Ages 20-29 = 116 mL/min/1.73 sq.m. Ages 30-39 = 107 mL/min/1.73 sq.m. Ages 40-49 = 99 mL/min/1.73 sq.m. Ages 50-59 = 93 mL/min/1.73 sq.m. Ages 60-69 = 85 mL/min/1.73 sq.m. Ages 70+ = 75 mL/min/1.73 sq.m. Chronic Kidney Disease: Less than 60 mL/min/1.73 square meters End Stage Renal Disease: Less than 15 mL/min/1.73 square meters Glucose [Mass/Vol] 98 mg/dL Invalid Interpretation Code 70 - 105 mg/dL AO ADM SS Potassium [Moles/Vol] 3.5 mmol/L Invalid Interpretation Code 3.5 - 5.1 mmol/L AO ADM SS Sodium [Moles/Vol] 141 mmol/L Invalid Interpretation Code 136 - 145 mmol/L AO ADM SS Urea nitrogen [Mass/Vol] 17 mg/dL Invalid Interpretation Code 7 - 18 mg/dL AO ADM SS Urea nitrogen/Creatinine [Mass ratio] 17 ratio Invalid Interpretation Code 7 - 27 ratio AO ADM SS LABORATORYOrdered By: Alise Bass on 09-23-2022 Basophil, Absolute 0.0 103/mcL Invalid Interpretation Code 0.0 - 0.2 10^3/mcL AO Workflow SS Basophils/100 WBC (Bld) 0.6 % Invalid Interpretation Code 0.0 - 2.5 % AO Workflow SS Eosinophil, Absolute 0.2 103/mcL Invalid Interpretation Code 0.0 - 0.4 10^3/mcL AO Workflow SS Eosinophils/100 WBC (Bld) 3.1 % Invalid Interpretation Code 0.0 - 7.0 % AO Workflow SS Erythrocyte distribution width (RBC) [Ratio] 13.0 % Invalid Interpretation Code 11.5 - 14.5 % AO Workflow SS Hematocrit (Bld) [Volume fraction] 37.8 % Invalid Interpretation Code 37.0 - 47.0 % AO Workflow SS Hemoglobin (Bld) [Mass/Vol] 12.6 G/dL Invalid Interpretation Code 12.0 - 16.0 G/dL AO Workflow SS Lymphocyte, Absolute 3.0 103/mcL Invalid Interpretation Code 0.8 - 3.9 10^3/mcL AO Workflow SS Lymphocytes/100 WBC (Bld) 38.5 % Invalid Interpretation Code 10.0 - 50.0 % AO Workflow SS MCH (RBC) [Entitic mass] 29.5 pg Invalid Interpretation Code 27.0 - 31.2 pg AO Workflow SS MCHC 33.3 G/dL Invalid Interpretation Code 33.0 - 37.0 G/dL AO Workflow SS MCV (RBC) [Entitic vol] 88.7 fL Invalid Interpretation Code 80.0 - 94.0 fL AO Workflow SS Monocyte, Absolute 0.6 103/mcL Invalid Interpretation Code 0.2 - 1.0 10^3/mcL AO Workflow SS Monocytes/100 WBC (Bld) 7.2 % Invalid Interpretation Code 1.7 - 13.0 % AO Workflow SS Neutrophil, Absolute 3.9 103/mcL Invalid Interpretation Code 2.9 - 6.2 10^3/mcL AO Workflow SS Neutrophils/100 WBC (Bld) 50.6 % Invalid Interpretation Code 37.0 - 80.0 % AO Workflow SS Platelet mean volume (Bld) [Entitic vol] 7.8 fL Invalid Interpretation Code 7.4 - 10.4 fL AO Workflow SS Platelets (Bld) [#/Vol] 229 103/mcL Invalid Interpretation Code 130 - 400 10^3/mcL AO Workflow SS RBC (Bld) [#/Vol] 4.27 106/mcL Invalid Interpretation Code 4.20 - 5.40 10^6/mcL AO Workflow SS WBC (Bld) [#/Vol] 7.7 103/mcL Invalid Interpretation Code 4.6 - 10.8 10^3/mcL AO Workflow SS LABORATORYOrdered By: SYSTEM SYSTEM on 09-23-2022 Calcium [Mass/Vol] 8.8 mg/dL Invalid Interpretation Code 8.4 - 10.2 mg/dL AO ADM SS Chloride [Moles/Vol] 106 mmol/L Invalid Interpretation Code 98 - 107 mmol/L AO ADM SS CO2 [Moles/Vol] 26 mmol/L Invalid Interpretation Code 22 - 29 mmol/L AO ADM SS Creatinine [Mass/Vol] 0.90 mg/dL Invalid Interpretation Code 0.55 - 1.02 mg/dL AO ADM SS Electrolyte Balance 10.0 mEq/L Invalid Interpretation Code 4.0 - 15.0 mEq/L AO ADM SS GFR/1.73 sq M.predicted among blacks MDRD (S/P/Bld) [Vol rate/Area] 79 ml/min/1.73sqm Invalid Interpretation Code AO Chemistry S GFR/1.73 sq M.predicted among non-blacks MDRD (S/P/Bld) [Vol rate/Area] 65 ml/min/1.73sqm Invalid Interpretation Code AO Chemistry S Glucose [Mass/Vol] 102 mg/dL Invalid Interpretation Code 70 - 105 mg/dL AO ADM SS Potassium [Moles/Vol] 4.2 mmol/L Invalid Interpretation Code 3.5 - 5.1 mmol/L AO ADM SS Sodium [Moles/Vol] 142 mmol/L Invalid Interpretation Code 136 - 145 mmol/L AO ADM SS Urea nitrogen [Mass/Vol] 13 mg/dL Invalid Interpretation Code 7 - 18 mg/dL AO ADM SS Urea nitrogen/Creatinine [Mass ratio] 14 ratio Invalid Interpretation Code 7 - 27 ratio AO ADM SS Absolute lymphocyte countOrd ered By: Dr. Jurado on 05-24-2022 Lymphocytes Auto (Unsp spec) [#/Vol] 3.13 10*3/uL 0.83-4.51 [facility] Basophil percentageOrdered B y: Dr. Jurado on 05-24-2022 Basophils/100 WBC (Bld) 0.4 % 0-1 [facility] Chloride [Moles/Vol] 109 mmol/L 98-107 [facility] Eosinophils/100 WBC (Bld) 3.4 % 0-5 [facility] Glucose [Mass/Vol] 111 mg/dL 74-106 [facility] Comment on above: Fasting Glucose resu lt from 100 to 125 mg/dL suggests IMPAIRED HOMEOSTASIS per A.D.A. criteria. Neutrophils (Bld) [#/Vol] 3.6 10*3/uL 2.0-7.7 [facility] Neutrophils/100 WBC (Bld) 47.0 % 47-70 [facility] Potassium [Moles/Vol] 3.6 mmol/L 3.5-5.1 [facility] Sodium [Moles/Vol] 140 mmol/L 136-145 [facility] WBC (Bld) [#/Vol] 7.6 10*3/uL 4.4-11.0 [facility] Blood erythrocytes count (nu mber/volume)Ordered By: Dr. Jurado on 05-24-2022 RBC (Bld) [#/Vol] 4.40 10*6/uL 4.2-5.4 [facility] Blood hemoglobin measurement (mass/volume)Ordered By: Dr. Jurado on 05-24-2022 Hemoglobin (Bld) [Mass/Vol] 13.4 g/dL 12.0-15.0 [facility] Blood lymphocytes/100 leukoc ytesOrdered By: Dr. Jurado on 05-24-2022 Lymphocytes/100 WBC (Bld) 41.4 % 19-41 [facility] Blood monocytes/100 leukocyt esOrdered By: Dr. Jurado on 05-24-2022 Monocytes/100 WBC (Bld) 7.5 % 0-10 [facility] Blood platelet mean volumeOr dered By: Dr. Jurado on 05-24-2022 Platelet mean volume (Bld) [Entitic vol] 9.6 fL 6.2-12.0 [facility] Determination of erythrocyte mean corpuscular volume (MCV)Ordered By: Dr. Jurado on 05-24-2022 MCV (RBC) [Entitic vol] 93.0 fL 81-99 [facility] Hematocrit Auto (Bld) [Volum e fraction]Ordered By: Dr. Jurado on 05-24-2022 Hematocrit (Bld) [Volume fraction] 40.9 % 37-47 [facility] Laboratory - Chemistry and C hemistry - challengeOrdered By: Dr. Jurado on 05-24-2022 CO2 [Moles/Vol] 24.0 mmol/L 21.0-32.0 [facility] Urea nitrogen/Creatinine [Mass ratio] 15.9 mg/mg 10-20 [facility] - Hematology and Cell countsOrdered By: Dr. Jurado on 05-24-2022 Erythrocyte distribution width (RBC) [Entitic vol] 41.0 fL 35.1-43.9 [facility] Erythrocyte distribution width (RBC) [Ratio] 11.9 % 11.6-14.6 [facility] Immature granulocytes/100 WBC (Bld) 0.300 % 0.0-0.9 [facility] Comment on above: IG% - Immature Granu locytes (promyelocytes, myelocytes and metamyelocytes) > 1% indicates that a LEFT SHIFT is Present. MCH (RBC) [Entitic mass] 30.5 pg 27.0-32.0 [facility] Nucleated RBC/100 WBC (Bld) [Ratio] 0 % 0-5 [facility] MCHC Auto (RBC) [Mass/Vol]Or dered By: Dr. Jurado on 05-24-2022 MCHC (RBC) [Mass/Vol] 32.8 g/dL 32-36 [facility] No Panel InformationOrdered By: Dr. Jurado on 05-24-2022 Estimated Creatinine Clearance Calc 73.72 ml/min [facility] Estimated GFR (MDRD) Amer 113 mL/min >60 [facility] Comment on above: GFR Calc Estimated GFR (MDRD) Non-Af Amer 93 mL/min >60 [facility] Comment on above: Non- GFR Calc Troponin I High Sensitivity 4 pg/mL 3.0-54.0 [facility] Comment on above: Please Note: New Gita t Units and Gender Specific Reference Ranges. For more information see Policy Stat Procedure [place] High Sensitivity Troponin (TNIH) and attachments. Platelets bldOrdered By: Dr. Jurado on 05-24-2022 Platelets (Bld) [#/Vol] 231 10*3/uL 150-450 [facility] Serum or plasma calcium irena urement (mass/volume)Ordered By: Dr. Jurado on 05-24-2022 Calcium [Mass/Vol] 9.1 mg/dL 8.5-10.1 [facility] Serum or plasma creatinine m easurement (mass/volume)Ordered By: Dr. Jurado on 05-24-2022 Creatinine [Mass/Vol] 0.69 mg/dL 0.55-1.02 [facility] Comment on above: The validity of the calculated GFR & GFRAA in patients over 70 years has not been determined. Clinical correlation is essential. Serum or plasma urea nitroge n measurement (mass/volume)Ordered By: Dr. Jurado on 05-24-2022 Urea nitrogen [Mass/Vol] 11 mg/dL 7-18 [facility] Thin prep Papanicolaou smear with manual screeningOrdered By: Dr. Jurado on 05-24-2022 Thin prep Papanicolaou smear with manual screening 7 5-15 [facility] LABORATORYOrdered By: SYSTEM SYSTEM on 04-15-2022 Albumin BCP dye [Mass/Vol] 3.5 G/dL Invalid Interpretation Code 3.5 - 5.0 G/dL AO ADM SS Albumin/Globulin [Mass ratio] 1.3 {ratio} Invalid Interpretation Code 1.1 - 2.5 ratio AO ADM SS ALP [Catalytic activity/Vol] 97 U/L Invalid Interpretation Code 40 - 135 U/L AO ADM SS ALT With P-5'-P [Catalytic activity/Vol] 15 U/L Invalid Interpretation Code 14 - 59 U/L AO ADM SS AST With P-5'-P [Catalytic activity/Vol] 22 U/L Invalid Interpretation Code 10 - 40 U/L AO ADM SS Bilirubin [Mass/Vol] 0.4 mg/dL Invalid Interpretation Code 0.2 - 1.0 mg/dL AO ADM SS Calcium [Mass/Vol] 9.1 mg/dL Invalid Interpretation Code 8.4 - 10.2 mg/dL AO ADM SS Chloride [Moles/Vol] 107 mmol/L Invalid Interpretation Code 98 - 107 mmol/L AO ADM SS CO2 [Moles/Vol] 28 mmol/L Invalid Interpretation Code 22 - 29 mmol/L AO ADM SS Creatinine [Mass/Vol] 0.76 mg/dL Invalid Interpretation Code 0.55 - 1.02 mg/dL AO ADM SS Electrolyte Balance 8.0 mEq/L Invalid Interpretation Code 4.0 - 15.0 mEq/L AO ADM SS Free T4 [Mass/Vol] 0.95 ng/dL Invalid Interpretation Code 0.76 - 1.46 ng/dL AO ADM SS GFR 96 ml/min/1.73sqm Invalid Interpretation Code AO Chemistry S GFR Non- 79 ml/min/1.73sqm Invalid Interpretation Code AO Chemistry S Globulin 2.7 G/dL Invalid Interpretation Code AO ADM SS Glucose [Mass/Vol] 108 mg/dL Invalid Interpretation Code 70 - 105 mg/dL AO ADM SS Potassium [Moles/Vol] 4.0 mmol/L Invalid Interpretation Code 3.5 - 5.1 mmol/L AO ADM SS Protein [Mass/Vol] 6.2 G/dL Invalid Interpretation Code 6.4 - 8.2 G/dL AO ADM SS Sodium [Moles/Vol] 143 mmol/L Invalid Interpretation Code 136 - 145 mmol/L AO ADM SS TSH Qn 1.46 m[IU]/L Invalid Interpretation Code 0.36 - 3.74 mcIU/mL AO ADM SS Urea nitrogen [Mass/Vol] 14 mg/dL Invalid Interpretation Code 7 - 18 mg/dL AO ADM SS Urea nitrogen/Creatinine [Mass ratio] 18 ratio Invalid Interpretation Code 7 - 27 ratio AO ADM SS Vit. D 25-Hydroxy 54.0 ng/mL Invalid Interpretation Code AO ADM SS LABORATORYOrdered By: Selvin Olson on 04-15-2022 Cholesterol [Mass/Vol] 194 mg/dL Invalid Interpretation Code 0 - 200 mg/dL AO ADM SS Cholesterol in HDL [Mass/Vol] 65 mg/dL Invalid Interpretation Code 40 - 60 mg/dL AO ADM SS Cholesterol in LDL [Mass/Vol] 98 mg/dL Invalid Interpretation Code 0 - 130 mg/dL AO ADM SS Triglyceride [Mass/Vol] 157 mg/dL Invalid Interpretation Code 0 - 150 mg/dL AO ADM SS XR Pelvis and Hip - left AP and Lateral frogon 03-10-2022 IMPRESSION: NO ACUTE FINDINGS IN THE LEFT HIP Public Health Assistant: ALEXX Transcribe Date/Time: Mar 10 2022 8:25A Dictated by : KALIN HUERTA MD This examination was interpreted and the report reviewed and electronically signed by: KALIN HUERTA MD on Mar 10 2022 8:27AM [facility] DIVISION OF RADIOLOGY * * *Final Report* * * DATE OF EXAM: Mar 08 2022 2:09PM WOX [id number] - XR HIP 3V PELV+ AP/LAT LT / PROCEDURE REASON: Hip pain * * * * Physician Interpretation * * * * Examination: XR HIP 3V PELV+ AP/LAT LT History: Hip pain Technique: XR HIP 3V PELV+ AP/LAT LT Comparison: 09/17/2020 RESULT: AP pelvis and 2 coned-down views of the left hip show no fracture or focal bony abnormality. Normal mineralization and alignment. Joint spaces are maintained. SI joints appear unremarkable. Incidental bone island within the right ilium DIVISION OF RADIOLOGY Provider, Cynthia shelby [place] - 03/10/2022 * * *Final Report* * * DATE OF EXAM: Mar 08 2022 2:09PM WOX [id number] - XR HIP 3V PELV+ AP/LAT LT / PROCEDURE REASON: Hip pain * * * * Physician Interpretation * * * * Examination: XR HIP 3V PELV+ AP/LAT LT History: Hip pain Technique: XR HIP 3V PELV+ AP/LAT LT Comparison: 09/17/2020 RESULT: AP pelvis and 2 coned-down views of the left hip show no fracture or focal bony abnormality. Normal mineralization and alignment. Joint spaces are maintained. SI joints appear unremarkable. Incidental bone island within the right ilium IMPRESSION IMPRESSION: NO ACUTE FINDINGS IN THE LEFT HIP Public Health Assistant: ALEXX Transcribe Date/Time: Mar 10 2022 8:25A Dictated by : KALIN HUERTA MD This examination was interpreted and the report reviewed and electronically signed by: KALIN HUERTA MD on Mar 10 2022 8:27AM EST XR Pelvis and Hip - left AP and Lateral frogOrdered By: Ccf Provider on 03-10-2022 XR Pelvis and Hip - left AP and Lateral frogon 03-08-2022 Radiology Study observation (narrative) LABORATORYOrdered By: Katerin Samaniego on 12-29-2021 Albumin BCP dye [Mass/Vol] 4.0 G/dL Invalid Interpretation Code 3.5 - 5.0 G/dL AO ADM SS Albumin/Globulin [Mass ratio] 1.5 {ratio} Invalid Interpretation Code 1.1 - 2.5 ratio AO ADM SS ALP [Catalytic activity/Vol] 111 U/L Invalid Interpretation Code 40 - 135 U/L AO ADM SS ALT With P-5'-P [Catalytic activity/Vol] 20 U/L Invalid Interpretation Code 14 - 59 U/L AO ADM SS AST With P-5'-P [Catalytic activity/Vol] 24 U/L Invalid Interpretation Code 10 - 40 U/L AO ADM SS Bilirubin [Mass/Vol] 0.4 mg/dL Invalid Interpretation Code 0.2 - 1.0 mg/dL AO ADM SS Calcium [Mass/Vol] 9.3 mg/dL Invalid Interpretation Code 8.4 - 10.2 mg/dL AO ADM SS Chloride [Moles/Vol] 103 mmol/L Invalid Interpretation Code 98 - 107 mmol/L AO ADM SS Cholesterol [Mass/Vol] 244 mg/dL Invalid Interpretation Code 0 - 200 mg/dL AO ADM SS Cholesterol in HDL [Mass/Vol] 74 mg/dL Invalid Interpretation Code 40 - 60 mg/dL AO ADM SS Cholesterol in LDL [Mass/Vol] 141 mg/dL Invalid Interpretation Code 0 - 130 mg/dL AO ADM SS CO2 [Moles/Vol] 26 mmol/L Invalid Interpretation Code 22 - 29 mmol/L AO ADM SS Creatinine [Mass/Vol] 0.87 mg/dL Invalid Interpretation Code 0.55 - 1.02 mg/dL AO ADM SS Electrolyte Balance 11.0 mEq/L Invalid Interpretation Code 4.0 - 15.0 mEq/L AO ADM SS Globulin 2.6 G/dL Invalid Interpretation Code AO ADM SS Glucose [Mass/Vol] 90 mg/dL Invalid Interpretation Code 70 - 105 mg/dL AO ADM SS Potassium [Moles/Vol] 4.1 mmol/L Invalid Interpretation Code 3.5 - 5.1 mmol/L AO ADM SS Protein [Mass/Vol] 6.6 G/dL Invalid Interpretation Code 6.4 - 8.2 G/dL AO ADM SS Sodium [Moles/Vol] 140 mmol/L Invalid Interpretation Code 136 - 145 mmol/L AO ADM SS Triglyceride [Mass/Vol] 145 mg/dL Invalid Interpretation Code 0 - 150 mg/dL AO ADM SS Urea nitrogen [Mass/Vol] 16 mg/dL Invalid Interpretation Code 7 - 18 mg/dL AO ADM SS Urea nitrogen/Creatinine [Mass ratio] 18 ratio Invalid Interpretation Code 7 - 27 ratio AO ADM SS Vit. D 25-Hydroxy 80.8 ng/mL Invalid Interpretation Code AO ADM SS LABORATORYOrdered By: SYSTEM SYSTEM on 12-29-2021 Cobalamin (Vitamin B12) [Mass/Vol] 379 pg/mL Invalid Interpretation Code 211 - 911 pg/mL AH ADM SS GFR 82 ml/min/1.73sqm Invalid Interpretation Code AO Chemistry S GFR Non- 68 ml/min/1.73sqm Invalid Interpretation Code AO Chemistry S LABORATORYOrdered By: Francie Adams on 12-29-2021 TSH Qn 1.29 m[IU]/L Invalid Interpretation Code 0.36 - 3.74 mcIU/mL AO ADM SS US Thyroid/Parathyroidon US Thyroid/Parathyroid Patient Name: MARYSE PISANO Ultrasound ACCESSION EXAM DATE/TIME PROCEDURE ORDERING PROVIDER [id number] 11/29/2021 10:25 EDT US Parathyroid REGINA BARNEY CPT code 78320 Reason For Exam (US Parathyroid) THYROID NODULES Report ULTRASOUND THYROID: CLINICAL INDICATION: Thyroid nodules, history of thyroid cancer TECHNIQUE: Ultrasonographic evaluation of the thyroid COMPARISON: None FINDINGS: RIGHT LOBE: 0.9 x 1.5 x 3.4 cm. Homogeneous echogenicity. No suspicious nodule. LEFT LOBE: Surgically absent. Cervical lymph nodes: None identified. IMPRESSION: 1. Postsurgical changes. No thyroid nodule within the remaining thyroid. 2. No sonographic evidence of cervical lymphadenopathy. Report Dictated on Final Dictating Physician: MD SAL NICHOLAS Signed Date and Time: 11/30/2021 8:31 am Signed by: MD SAL NICHOLAS Transcribed Date and Time: 11/30/2021 8:32 Normal [facility] DXA-AXIAL SKELETONon 022 CNOVon 06-21-2021 CNOV Office Visit (FARNAZ Shelby) MARYSE PISANO ([id number]) 1965 F Date Time Provider Department 06/21/21 2:20 PM JANAK AWAN During your visit today, we recorded the following information about you: Temperature Pulse Blood pressure Weight 98.6 degrees 86/minute 126/78 64 kg Height 1.575 m Janak Smith MD 06/21/2021 2:46 PM Addendum SMOKING CESSATION Stopping smoking is the most important thing you can do to protect your current and future health, as well as that of your family. It is the most potent risk factor for the future development of coronary artery disease and heart attacks. Smoking is both an addiction and a learned behavior. The nicotine withdrawal takes anywhere from 2-4 weeks and results in symptoms such as irritability, fatigue, insomnia, coughing, dizziness, poor concentration, hunger and cigarette cravings. After the nicotine withdrawal period, the learned linkage between certain acts or situations and cigarette use remain. Strategies to deal with these must be developed along with new behaviors to ensure successful smoking cessation. STRATEGIES TOWARD SMOKING CESSATION - Make a list of the reasons why you want to quit, plus the benefits to be gained, and compare them to the reasons why you should continue to smoke. - Pick a specific quit date. - If you are interested in using nicotine patches or gum to assist with the nicotine withdrawal, let the staff know. - Inform friends, family, and co-workers that you are quitting and when your quit date is. Ask for their understanding and support. - Prepare your environment by removing all cigarettes prior to your quit date. - Prior to your quit date, avoid smoking in places where you spend a lot of time (such as the house, work, car). - From previous quit attempts, identify what helped you to stop smoking. - From previous quit attempts, identify what triggered relapse. How can you avoid that again? - What things (situations, emotions) do you anticipate will be most challenging, especially in the first few weeks, to your quitting effort? - What can you do to address these challenges? - Avoid (or limit) alcohol consumption during the quitting process. - If your spouse or close coworker currently smoke, consider quitting together or at the very least, develop specific plans to maintain your cigarette abstinence while in the home or at work. - Take each day, each hour, each craving, one at a time. Every step or action you take toward smoking cessation is a success. The only failure is the failure to try. - The health of you and your family, is worth the effort. STOP SMOKING CHECK LIST Preparing to Quit: ___ Make a personal pact with yourself to quit. ___ Pick a date for quitting completely. (My date to quit is ___Aug 01 2021_.) ___ Write down on a card the three most important reasons for quitting. Carry the card with you from now on. Look at it several times a day. ___ Prior to quitting, eliminate smoking completely in 2 or 3 of your high risk situations. ___ Reduce consumption to one pack per day or less. ___ Change to a less desirable brand of cigarettes. ___ Discard your coal getter. Use matches. Carry your cigarettes in a different place. ___ Spend a little time each day picturing in your mind stressful events occurring in the future and you not smoking. Actual Quitting: The First Two Weeks ___ Get rid of all cigarettes. Put away all smoking related objects such as ashtrays. Ask the people you live with not to smoke in your presence for the first two weeks. ___ Spend as much time as possible with non-smoking people. ___ Keep busy, especially on evenings and weekends. ___ Avoid high risk situations (large parties, bars, etc.). ___ Spend lots of time in places that prohibit or discourage smoking (e.g., theaters, libraries.) ___ Drink plenty of fluids. ___ Don't substitute food or sugar based products for cigarettes. Use approved substitutions. (... ice water, high bulk/low calorie foods, sugarless gum, mouthwash, brushing teeth.) ___ Begin or increase regular exercise program. ___ When experiencing withdrawal effects: 1. Remind yourself why you are quitting (from your card). 2. Remind yourself that whatever discomfort you are experiencing is only a tiny fraction of the probable discomfort associated with continued smoking. 3. Practice deep breathing or other relaxation techniques - tapes. ___ Remind yourself that you can free yourself from this unhealthy, expensive, messy habit and become a non-smoker. Maintenance of Quitting: After two weeks ___ Remind yourself that the desire to smoke is linked to a great many situations, people and emotional stress. ___ When you do have a desire to smoke, remember that it only lasts a few seconds: distract yourself and leave the situation if necessary. __ (more content not included)... Normal [facility] GLIADIN (DEAMIDATED) AB, IGA on 06-21-2021 GLIAD DEAMIDATED IGA QUAL Negative Normal Negative, Test not Indicated [facility] Comment on above: Order Comment: Speci men Type: BLOOD SPECIMEN Ordering Facility: [facility] Address: [address] [place] [address] Result Comment: This is used as an aid in diagnosis of celiac disease. Clinical correlation is required. The following results were obtained with an [employer] QUANTA Lite Gliadin IgA NESTOR Gliadin. Gliadin IgA values obtained with different manufacturers' assay methods may not be used interchangeably. The magnitude of the reported IgA levels cannot be correlated to an endpoint titer. Performed By: #### DANIELA LUNSFORD #### [facility] CLIA [id number] [address] [place] [address] [place] Gliadin peptide IgA Qn (S) 1 Units Normal <20 [facility] Comment on above: Order Comment: Franco michaud Type: BLOOD SPECIMEN Ordering Facility: [facility] Address: [address] [place] [address] Performed By: #### DANIELA LUNSFORD #### [facility] CLIA [id number] [address] [place] [address] [place] GLIADIN (DEAMIDATED) AB, IGG on 06-21-2021 GLIAD DEAMIDATED IGG QUAL Negative Normal Negative, Test not Indicated [facility] Comment on above: Order Comment: Franco michaud Type: BLOOD SPECIMEN Ordering Facility: [facility] Address: [address] [place] [address] Result Comment: This test is used as an aid in diagnosis of celiac disease in IgA-deficient individuals only. Clinical correlation is required. The following results were obtained with an [employer] QUANTA Lite Gliadin IgG NESTOR Gliadin. Gliadin IgG values obtained with different manufacturers' assay methods may not be used interchangeably. The magnitude of the reported IgG levels cannot be correlated to an endpoint titer. Performed By: #### DANIELA LUNSFORD #### [facility] CLIA [id number] [address] [place] [address] [place] Gliadin peptide IgG Qn (S) 1 Units Normal <20 [facility] Comment on above: Order Comment: Franco michaud Type: BLOOD SPECIMEN Ordering Facility: [facility] Address: [address] [place] [address] Performed By: #### G WILLIAMSDhruv PAULINOElvie #### [facility] CLIA [id number] [address] [place] [address] [id number] [place] [address] [place] VITAMIN B12 BLOODon 06-22-19 Cobalamin (Vitamin B12) [Mass/Vol] 335 pg/mL Normal 232-1,245 [facility] Comment on above: Order Comment: Speci men Type: BLOOD SPECIMEN Ordering Facility: [facility] Address: [address] [place] [address] Performed By: #### B 12 #### [facility] CLIA [id number] [address] [place] VITAMIN D 25 HYDROXYon 06-21 25-hydroxyvitamin D3 [Mass/Vol] 9.8 ng/mL Low 30.0-100.0 [facility] Comment on above: Order Comment: Speci men Type: BLOOD SPECIMEN Ordering Facility: [facility] Address: [address] [place] [address] Result Comment: Clas sification of 25 [place] Vitamin D status: Deficiency: <= 20.0 ng/ml. Insufficientcy: 21.0-29.0 ng/ml. Sufficiency: >= 30.0 ng/ml. Performed By: #### V ITD #### [facility] CLIA [id number] [address] [place] [address] tTG IgA Qn (S)on 06-21-2021 TRANSGLUTAMINASE IGA QUAL Negative Normal Negative, Test not Indicated [facility] Comment on above: Order Comment: Speci men Type: BLOOD SPECIMEN Ordering Facility: [facility] Address: [address] [place] [address] Result Comment: The following results were obtained with the [employer] QAUNTA Lite h-tTG IgA NESTOR. h-tTG IgA values obtained with different manufacturers' assay methods may not be used interchangeable. The magnitude of the reported IgA levels cannot be correlated to an endpoint titer. This is used as an aid in diagnosis of celiac disease. Clinical correlation is required. Performed By: #### 3 2998-7, 74997-6 #### [facility] CLIA [id number] [address] [place] [address] tTG IgA Ser-aCncon 2 tTG IgA Qn (S) 2 Units Normal <20 [facility] Comment on above: Order Comment: Speci men Type: BLOOD SPECIMEN Ordering Facility: [facility] Address: [address] [place] [address] Performed By: #### 3 2998-7, 91478-9 #### [facility] CLIA [id number] [address] [place] [address] tTG IgG Qn (S)on 06-21-2021 TRANSGLUTAMINASE IGG QUAL Negative Normal Negative, Test not Indicated [facility] Comment on above: Order Comment: Specfabio michaud Type: BLOOD SPECIMEN Ordering Facility: [facility] Address: [address] [place] [address] Result Comment: The following results were obtained with the [employer] QUANTA Lite h-tTG IgG NESTOR. h-tTG IgG values obtained with different manufacturers' assay methods may not be used interchangeable. The magnitude of the reported IgG levels cannot be correlated to an endpoint titer. This test is used as an aid in diagnosis of celiac disease in IgA-deficient individuals only. Clinical correlation is required. Performed By: #### 3 2998-7, 54466-6 #### [facility] CLIA [id number] [address] [place] [address] tTG IgG Ser-aCncon 2 tTG IgG Qn (S) 2 Units Normal <20 [facility] Comment on above: Order Comment: Speci men Type: BLOOD SPECIMEN Ordering Facility: [facility] Address: [address] [place] [address] Performed By: #### 3 2998-7, 43506-7 #### [facility] CLIA [id number] [address] [place] [address] LABORATORYOrdered By: Selvin Olson on 02-09-2021 Calcium [Mass/Vol] 9.0 mg/dL Invalid Interpretation Code 8.4 - 10.2 mg/dL AO ADM SS Chloride [Moles/Vol] 107 mmol/L Invalid Interpretation Code 98 - 107 mmol/L AO ADM SS CO2 [Moles/Vol] 26 mmol/L Invalid Interpretation Code 22 - 29 mmol/L AO ADM SS Creatinine [Mass/Vol] 0.71 mg/dL Invalid Interpretation Code 0.55 - 1.02 mg/dL AO ADM SS Electrolyte Balance 11.0 mEq/L Invalid Interpretation Code AO ADM SS Glucose [Mass/Vol] 93 mg/dL Invalid Interpretation Code 70 - 105 mg/dL AO ADM SS Potassium [Moles/Vol] 3.9 mmol/L Invalid Interpretation Code 3.5 - 5.1 mmol/L AO ADM SS Sodium [Moles/Vol] 144 mmol/L Invalid Interpretation Code 136 - 145 mmol/L AO ADM SS Urea nitrogen [Mass/Vol] 15 mg/dL Invalid Interpretation Code 7 - 18 mg/dL AO ADM SS Urea nitrogen/Creatinine [Mass ratio] 21 ratio Invalid Interpretation Code 7 - 27 ratio AO ADM SS LABORATORYOrdered By: SYSTEM SYSTEM on 02-09-2021 GFR 104 ml/min/1.73sqm Invalid Interpretation Code AO Chemistry S GFR Non- 86 ml/min/1.73sqm Invalid Interpretation Code AO Chemistry S LABORATORYOrdered By: Francie Adams on 02-09-2021 Basophil, Absolute 0.00 103/mcL Invalid Interpretation Code 0.00 - 0.19 10^3/mcL AO Auto Heme SS Basophils/100 WBC (Bld) 0.3 % Invalid Interpretation Code 0.0 - 2.5 % AO Auto Heme SS Eosinophil, Absolute 0.20 103/mcL Invalid Interpretation Code 0.00 - 0.40 10^3/mcL AO Auto Heme SS Eosinophils/100 WBC (Bld) 2.2 % Invalid Interpretation Code 0.0 - 7.0 % AO Auto Heme SS Erythrocyte distribution width (RBC) [Ratio] 13.8 % Invalid Interpretation Code 11.5 - 14.5 % AO Auto Heme SS Hematocrit (Bld) [Volume fraction] 40.3 % Invalid Interpretation Code 37.0 - 47.0 % AO Auto Heme SS Hemoglobin (Bld) [Mass/Vol] 13.5 G/dL Invalid Interpretation Code 12.0 - 16.0 G/dL AO Auto Heme SS Lymphocyte, Absolute 3.30 103/mcL Invalid Interpretation Code 0.77 - 3.85 10^3/mcL AO Auto Heme SS Lymphocytes/100 WBC (Bld) 39.1 % Invalid Interpretation Code 10.0 - 50.0 % AO Auto Heme SS MCH (RBC) [Entitic mass] 29.2 pg Invalid Interpretation Code 27.0 - 31.2 pg AO Auto Heme SS MCHC (RBC) [Mass/Vol] 33.4 G/dL Invalid Interpretation Code 33.0 - 37.0 G/dL AO Auto Heme SS MCV (RBC) [Entitic vol] 87.4 fL Invalid Interpretation Code 80.0 - 94.0 fL AO Auto Heme SS Monocyte, Absolute 0.60 103/mcL Invalid Interpretation Code 0.15 - 1.00 10^3/mcL AO Auto Heme SS Monocytes/100 WBC (Bld) 6.6 % Invalid Interpretation Code 1.7 - 13.0 % AO Auto Heme SS Neutrophil, Absolute 4.40 103/mcL Invalid Interpretation Code 2.85 - 6.16 10^3/mcL AO Auto Heme SS Neutrophils/100 WBC (Bld) 51.8 % Invalid Interpretation Code 37.0 - 80.0 % AO Auto Heme SS Platelet mean volume (Bld) [Entitic vol] 8.0 fL Invalid Interpretation Code 7.4 - 10.4 fL AO Auto Heme SS Platelets (Bld) [#/Vol] 250 103/mcL Invalid Interpretation Code 130 - 400 10^3/mcL AO Auto Heme SS RBC (Bld) [#/Vol] 4.61 106/mcL Invalid Interpretation Code 4.20 - 5.40 10^6/mcL AO Auto Heme SS WBC (Bld) [#/Vol] 8.40 103/mcL Invalid Interpretation Code 4.60 - 10.80 10^3/mcL AO Auto Heme SS Thyroid Stim. Hormoneon 08-02 Thyroid Stim. Hormone 0.775 u[IU]/mL Normal 0.465-4.68 0 [facility] Comment on above: Performed By: #### T 5 #### [facility] [address] [place] [address] AMB REFERRAL TO NEUROLOGYon 02-21-2018 emg 2018 Invalid Interpretation Code [facility] CT ABDO,PELVIS IV CONTRAST O NLYon 02-19-2018 CT ABDO,PELVIS IV CONTRAST ONLY Final ReportAccession No: [id number] Performed: Feb 18 2018 10:28PMExamination: CT ABDO,PELVIS IV CONTRAST ONLYCT ABDO, PELVIS IV CONTRAST ONLYCLINICAL STATEMENT: Abdominal painCOMPARISON: None.TECHNIQUE: CT examination of the abdomen and pelvis following theadministration of 75 mL of Isovue-370 intravenous contrast. Coronal andsagittal reformations were performed.Dose reduction techniques were achieved by using automated exposurecontroland/or adjustment of mA and/or kV according to patient size and/or use ofiterative reconstruction technique.FINDINGS: Limited evaluation of the lower chest demonstrates mildbibasilardependent atelectasis. The visualized portion of the heart appearsunremarkable. The distal esophagus is collapsed. There is tortuosity ofthethoracic aorta.The liver is homogeneous in attenuation. There is a tiny low-densitylesion inthe anterior segment of the right hepatic lobe (series 2, image 18), toosmallto further characterize. There is mild intrahepatic and extrahepaticbiliaryductal dilation, likely related to cholecystectomy. The spleen, pancreas,andbilateral adrenal glands appear unremarkable.The kidneys enhance symmetrically without any hydronephrosis orhydroureter.The bladder appears unremarkable. The uterus is surgically absent. Noadnexallesion.Evaluation of the GI tract demonstrates normal caliber of small and largebowelloops. No bowel obstruction. There are multiple fluid-filled small bowelloopsin the pelvis, nonspecific. The appendix is surgically absent.No intraperitoneal free air or free fluid. No lymphadenopathy by CT sizecriteria. The abdominal aorta is normal in caliber with scattered areas ofatherosclerotic calcification.Bone windows demonstrate a sclerotic lesion in the posterior aspect of theright acetabulum (series 2, image 110), likely represents a bone island.IMPRESSION:No acute abdominopelvic abnormality.Fluid-filled small bowel loops in the pelvis are nonspecific, can berelated toenteritis.Mild intra and extrahepatic biliary ductal dilation is likely related tocholecystectomy.Interpret ing Physician: MANJU HERNANDEZ M.D.Trans: lwolfe : cc: Normal [facility] Urinalysis, Routineon 2017 Bacteria LM.HPF #/area (Urine sed) Rare Normal NS;RARE [facility] Comment on above: Performed By: #### C MET, CBCDIF, SEDR, CRPQT ####Unless otherwise noted, all testing performed by [address]CLIA: [id number] Director: Jose L Bowling M.D. Bilirubin,Urine Negative Normal NEG;NEGATI VE [facility] Comment on above: Performed By: #### C MET, CBCDIF, SEDR, CRPQT ####Unless otherwise noted, all testing performed by [address]CLIA: [id number] Director: Jose L Bowling M.D. Blood,Urine Negative Normal NEG;NEGATI VE [facility] Comment on above: Performed By: #### C MET, CBCDIF, SEDR, CRPQT ####Unless otherwise noted, all testing performed by [address]CLIA: [id number] Director: Jose L Bowling M.D. Character Clear Normal [facility] Comment on above: Performed By: #### C MET, CBCDIF, SEDR, CRPQT ####Unless otherwise noted, all testing performed by [address]CLIA: [id number] Director: Jose L Bowling M.D. Color Nom (U) Yellow Normal [facility] Comment on above: Performed By: #### C MET, CBCDIF, SEDR, CRPQT ####Unless otherwise noted, all testing performed by [address] [phone]: [id number] Director: Jose L Bowling M.D. Glucose Ql (U) Negative Normal NEG;NEGATI VE [facility] Comment on above: Performed By: #### C MET, CBCDIF, SEDR, CRPQT ####Unless otherwise noted, all testing performed by [address] [phone]: [id number] Director: Jose L Bowling M.D. Ketone,Urine Negative Normal NEG;NEGATI VE [facility] Comment on above: Performed By: #### C MET, CBCDIF, SEDR, CRPQT ####Unless otherwise noted, all testing performed by [address] [phone]: [id number] Director: Jose L Bowling M.D. Leuk.Esterase,Urine Trace Abnormal Negative [facility] Comment on above: Performed By: #### C MET, CBCDIF, SEDR, CRPQT ####Unless otherwise noted, all testing performed by [address] [phone]: [id number] Director: Jose L Bowling M.D. Nitrite,Urine Negative Normal NEG;NEGATI VE [facility] Comment on above: Performed By: #### C MET, CBCDIF, SEDR, CRPQT ####Unless otherwise noted, all testing performed by [address] [phone]: [id number] Director: Jose L Bowling M.D. pH Test strip (U) 6.0 [pH] Normal 4.5-8.0 [facility] Comment on above: Performed By: #### C MET, CBCDIF, SEDR, CRPQT ####Unless otherwise noted, all testing performed by [address] [phone]: [id number] Director: Jose L Bowling M.D. Protein,Urine Negative Normal NEG;NEGATI VE [facility] Comment on above: Performed By: #### C MET, CBCDIF, SEDR, CRPQT ####Unless otherwise noted, all testing performed by [place] [address]CLIA: [id number] Director: Jose L Bowling M.D. RBC LM.HPF #/area (Urine sed) /[HPF] Normal 0-[address] [facility] Comment on above: Performed By: #### C MET, CBCDIF, SEDR, CRPQT ####Unless otherwise noted, all testing performed by [place] [address]CLIA: [id number] Director: Jose L Bowling M.D. Specific [place],Urine 1.035 High 1.003-1.[address] [facility] Comment on above: Performed By: #### C MET, CBCDIF, SEDR, CRPQT ####Unless otherwise noted, all testing performed by [address] [phone]: [id number] Director: Jose L Bowling M.D. Urobilinogen,Urine < 2.0 Normal <2 [facility] Comment on above: Result Comment: Urob ilinogen, Urine Reference Range: <2.0 mg/dL Performed By: #### C MET, CBCDIF, SEDR, CRPQT ####Unless otherwise noted, all testing performed by [address] [id number]: [id number] Director: Jose L Bowling M.D. WBC,Urine 5 /HPF Normal 0-[address] [facility] Comment on above: Performed By: #### C MET, CBCDIF, SEDR, CRPQT ####Unless otherwise noted, all testing performed by [place] [address]CLIA: [id number] Director: Jose L Bowling M.D. CBC with Diffon 02-18-2018 Basophils Auto #/vol (Bld) 0.0 K/mcL Normal 0-0.[address] [facility] Comment on above: Performed By: #### C MET, CBCDIF, SEDR, CRPQT ####Unless otherwise noted, all testing performed by [address] [phone]: [id number] Director: Jose L Bowling M.D. Basophils/100 WBC Auto (Bld) 0.2 % Normal [facility] Comment on above: Performed By: #### C MET, CBCDIF, SEDR, CRPQT ####Unless otherwise noted, all testing performed by [address] [phone]: [id number] Director: Jose L Bowling M.D. Eosinophils Auto #/vol (Bld) 0.2 K/mcL Normal 0-0.[address] [facility] Comment on above: Performed By: #### C MET, CBCDIF, SEDR, CRPQT ####Unless otherwise noted, all testing performed by [address] [phone]: [id number] Director: Jose L Bowling M.D. Eosinophils/100 WBC Auto (Bld) 1.7 % Normal [facility] Comment on above: Performed By: #### C MET, CBCDIF, SEDR, CRPQT ####Unless otherwise noted, all testing performed by [address] [phone]: [id number] Director: Jose L Bowling M.D. Erythrocyte distribution width Auto Ratio (RBC) 13.7 % Normal 10.0-14.[address] [facility] Comment on above: Performed By: #### C MET, CBCDIF, SEDR, CRPQT ####Unless otherwise noted, all testing performed by [address] [phone]: [id number] Director: Jose L Bowling M.D. Hematocrit Auto Volume Fraction (Bld) 36.6 % Normal 34.4-44.[address] [facility] Comment on above: Performed By: #### C MET, CBCDIF, SEDR, CRPQT ####Unless otherwise noted, all testing performed by [address] [phone]: [id number] Director: Jose L Bowling M.D. Hemoglobin mass conc (Bld) 12.2 g/dL Normal 11.6-15.[address] [facility] Comment on above: Performed By: #### C MET, CBCDIF, SEDR, CRPQT ####Unless otherwise noted, all testing performed by [address] [phone]: [id number] Director: Jose L Bowling M.D. Lymphocytes Auto #/vol (Bld) 3.4 K/mcL Normal 1.0-3.[address] [facility] Comment on above: Performed By: #### C MET, CBCDIF, SEDR, CRPQT ####Unless otherwise noted, all testing performed by [address] [phone]: [id number] Director: Jose L Bowling M.D. Lymphocytes/100 WBC Auto (Bld) 35.7 % Normal [facility] Comment on above: Performed By: #### C MET, CBCDIF, SEDR, CRPQT ####Unless otherwise noted, all testing performed by [address] [phone]: [id number] Director: Jose L Bowling M.D. MCH Auto Entitic mass (RBC) 28.9 pg Normal 27.9-33.[address] [facility] Comment on above: Performed By: #### C MET, CBCDIF, SEDR, CRPQT ####Unless otherwise noted, all testing performed by [address] [phone]: [id number] Director: Jose L Bowling M.D. MCHC Auto mass conc (RBC) 33.3 g/dL Normal 33.1-35.[address] [facility] Comment on above: Performed By: #### C MET, CBCDIF, SEDR, CRPQT ####Unless otherwise noted, all testing performed by [address] [phone]: [id number] Director: Jose L Bowling M.D. MCV Auto Entitic volume (RBC) 87.0 fL Normal 82.6-98.[address] [facility] Comment on above: Performed By: #### C MET, CBCDIF, SEDR, CRPQT ####Unless otherwise noted, all testing performed by [address] [phone]: [id number] Director: Jose L Bowling M.D. Monocytes Auto #/vol (Bld) 0.5 K/mcL Normal 0.1-0.[address] [facility] Comment on above: Performed By: #### C MET, CBCDIF, SEDR, CRPQT ####Unless otherwise noted, all testing performed by [address] [phone]: [id number] Director: Jose L Bowling M.D. Monocytes/100 WBC Auto (Bld) 5.1 % Normal [facility] Comment on above: Performed By: #### C MET, CBCDIF, SEDR, CRPQT ####Unless otherwise noted, all testing performed by [address] [phone]: [id number] Director: Jose L Bowling M.D. Neutrophils Auto #/vol (Bld) 5.4 K/mcL Normal 1.2-6.[address] [facility] Comment on above: Performed By: #### C MET, CBCDIF, SEDR, CRPQT ####Unless otherwise noted, all testing performed by [address] [place] [phone]: [id number] Director: Jose L Bowling M.D. Platelet mean volume Auto Entitic volume (Bld) 8.3 fL Normal 7.0-10.[address] [facility] Comment on above: Performed By: #### C MET, CBCDIF, SEDR, CRPQT ####Unless otherwise noted, all testing performed by [address] [phone]: [id number] Director: Jose L Bowling M.D. Platelets Auto #/vol (Bld) 226 K/mcL Normal 162-[address] [facility] Comment on above: Performed By: #### C MET, CBCDIF, SEDR, CRPQT ####Unless otherwise noted, all testing performed by [address] [phone]: [id number] Director: Jose L Bowling M.D. RBC Auto #/vol (Bld) 4.21 M/mcL Normal 3.7-5.0 [facility] Comment on above: Performed By: #### C MET, CBCDIF, SEDR, CRPQT ####Unless otherwise noted, all testing performed by [address] [phone]: [id number] Director: Jose L Bowling M.D. Segmented Neut % 57.3 % Normal [facility] Comment on above: Performed By: #### C MET, CBCDIF, SEDR, CRPQT ####Unless otherwise noted, all testing performed by [address] [phone]: [id number] Director: Jose L Bowling M.D. WBC Auto #/vol (Bld) 9.5 K/mcL Normal 3.4-10.6 [facility] Comment on above: Performed By: #### C MET, CBCDIF, SEDR, CRPQT ####Unless otherwise noted, all testing performed by [address] [phone]: [id number] Director: Jose L Bowling M.D. Comprehensive Metabolic [facility] 02-18-2018 Albumin mass conc 3.4 g/dL Normal 3.2-5.2 [facility] Comment on above: Performed By: #### C MET, CBCDIF, SEDR, CRPQT ####Unless otherwise noted, all testing performed by [address] [phone]: [id number] Director: Jose L Bowling M.D. ALP enzyme act/vol 127 U/L Normal 40-150 [facility] Comment on above: Performed By: #### C MET, CBCDIF, SEDR, CRPQT ####Unless otherwise noted, all testing performed by [address] [phone]: [id number] Director: Jose L Bowling M.D. ALT enzyme act/vol 13 U/L Low 14-65 [facility] Comment on above: Result Comment: This test result might be falsely depressed or falsely elevated onsamples drawn from patients taking Sulfasalazine and Sulfapyridine.Venipuncture should occur prior to taking either of these drugs. Performed By: #### C MET, CBCDIF, SEDR, CRPQT ####Unless otherwise noted, all testing performed by [address], [place] [phone]: [id number] Director: Jose L Bowling M.D. AST enzyme act/vol 24 U/L Normal 0-45 [facility] Comment on above: Result Comment: mode rate hemolysis, result may be falsely increased.This test result might be falsely depressed or falsely elevated onsamples drawn from patients taking Sulfasalazine and Sulfapyridine.Venipuncture should occur prior to taking either of these drugs. Performed By: #### C MET, CBCDIF, SEDR, CRPQT ####Unless otherwise noted, all testing performed by [address] [phone]: [id number] Director: Jose L Bowling M.D. Bilirubin mass conc 0.4 mg/dL Normal 0.3-1.2 [facility] Comment on above: Performed By: #### C MET, CBCDIF, SEDR, CRPQT ####Unless otherwise noted, all testing performed by [address] [phone]: [id number] Director: Jose L Bowling M.D. Calcium mass conc 8.2 mg/dL Low 8.4-10.2 [facility] Comment on above: Performed By: #### C MET, CBCDIF, SEDR, CRPQT ####Unless otherwise noted, all testing performed by [address] [phone]: [id number] Director: Jose L Bowling M.D. Chloride molar conc 113 mmol/L High 98-108 [facility] Comment on above: Performed By: #### C MET, CBCDIF, SEDR, CRPQT ####Unless otherwise noted, all testing performed by [address] [phone]: [id number] Director: Jose L Bowling M.D. CO2 molar conc 23 mmol/L Normal 21-[address] [facility] Comment on above: Performed By: #### C MET, CBCDIF, SEDR, CRPQT ####Unless otherwise noted, all testing performed by [address] [phone]: [id number] Director: Jose L Bowling M.D. Creatinine mass conc 0.69 mg/dL Normal 0.40-1.10 [facility] Comment on above: Performed By: #### C MET, CBCDIF, SEDR, CRPQT ####Unless otherwise noted, all testing performed by [address] [phone]: [id number] Director: Jose L Bowling M.D. GFR/1.73 sq M predicted among blacks MDRD vol rate/area (S/P/Bld) mL/min/{1.73_m2} [facility] Comment on above: Result Comment: Afri can Dutch GFR Calc Performed By: #### C MET, CBCDIF, SEDR, CRPQT ####Unless otherwise noted, all testing performed by [address] [phone]: [id number] Director: Jose L Bowling M.D. GFR/1.73 sq M predicted among non-blacks MDRD vol rate/area (S/P/Bld) mL/min/{1.73_m2} Normal [facility] Comment on above: Result Comment: Non- GFR CalceGFR is an estimated Glomerular Filtration Rate based on the valueof the patient's serum creatinine. In outpatients, eGFR should be usedas a helpful tool in screening for CKD. In inpatients or patients withacute renal failure, eGFR represents the GFR at the moment of the drawand should be used with caution. Performed By: #### C MET, CBCDIF, SEDR, CRPQT ####Unless otherwise noted, all testing performed by [address] [phone]: [id number] Director: Jose L Bowling M.D. Glucose mass conc 103 mg/dL High 70-99 [facility] Comment on above: Result Comment: This test result might be falsely depressed or falsely elevated onsamples drawn from patients taking Sulfasalazine and Sulfapyridine.Venipuncture should occur prior to taking either of these drugs. Performed By: #### C MET, CBCDIF, SEDR, CRPQT ####Unless otherwise noted, all testing performed by [address] [phone]: [id number] Director: Jose L Bowling M.D. Potassium molar conc 4.3 mmol/L Normal 3.5-5.1 [facility] Comment on above: Result Comment: mode rate hemolysis, result may be falsely increased. Performed By: #### C MET, CBCDIF, SEDR, CRPQT ####Unless otherwise noted, all testing performed by [address] [phone]: [id number] Director: Jose L Bowling M.D. Protein mass conc 6.2 g/dL Normal 6.0-8.0 [facility] Comment on above: Performed By: #### C MET, CBCDIF, SEDR, CRPQT ####Unless otherwise noted, all testing performed by [address] [phone]: [id number] Director: Jose L Bowling M.D. Sodium molar conc 141 mmol/L Normal 135-145 [facility] Comment on above: Performed By: #### C MET, CBCDIF, SEDR, CRPQT ####Unless otherwise noted, all testing performed by [address] [phone]: [id number] Director: Jose L Bowling M.D. Urea nitrogen mass conc 18 mg/dL Normal 8-[address] [facility] Comment on above: Performed By: #### C MET, CBCDIF, SEDR, CRPQT ####Unless otherwise noted, all testing performed by [address] [phone]: [id number] Director: Jose L Bowling M.D. ED Cardiac Troponin-Ion 02-01 Troponin I.cardiac mass conc ng/mL Normal < [address] [facility] Comment on above: Result Comment: Elev ation of troponin indicates some degree of myocardial necrosis butunless there is a significant rise and/or fall (if elevated) identified,it unlikely that an acute event has taken placeSamples from patients routinely receiving high dose biotin therapy(100-300 mg/day) may show falsely decreased results. Please correlateclinically. Performed By: #### C MET, CBCDIF, SEDR, CRPQT ####Unless otherwise noted, all testing performed by [address] [phone]: [id number] Director: Jose L Bowling M.D. Exception Noticeon 8 Exception Notice CBC cancelled due to clotted specimen. Normal [facility] Comment on above: Performed By: #### C MET, CBCDIF, SEDR, CRPQT ####Unless otherwise noted, all testing performed by [address] [phone]: [id number] Director: Jose L Bowling M.D. Lipaseon 02-18-2018 Lipase enzyme act/vol 225 U/L Normal 73-[address] [facility] Comment on above: Performed By: #### C MET, CBCDIF, SEDR, CRPQT ####Unless otherwise noted, all testing performed by [address] [phone]: [id number] Director: Jose L Bowling M.D. Sed Rateon 02-18-2018 Sed Rate 11 MM/hr. Normal 0-[address] [facility] Comment on above: Performed By: #### C MET, CBCDIF, SEDR, CRPQT ####Unless otherwise noted, all testing performed by [address] [phone]: [id number] Director: Jose L Bowling M.D. KNEE W/ONE OBLIQUEon 018 KNEE W/ONE OBLIQUE Final ReportAccession No: [id number] Performed: Dec 12 2017 3:33PMExamination: RIGHT KNEE W/ONE OBLIQUEEXAM TYPE: KNEE W/ONE OBLIQUE RIGHTEXAM DATE AND TIME: 12/12/2017 3:33 PM EDTINDICATION: 52-year-old female with bilateral knee pain after trauma.COMPARISON: None.TECHNIQUE: 3 views of the right knee.FINDINGS: No acute fracture. Joint alignment is anatomic. Joint spaces arepreserved. No significant joint effusion. Soft tissues are within normallimits.IMPRESSION:No acute fracture or traumatic malalignment.Interpreting Physician: MICHELLE DOMINGUEZ D.O.Trans: dcarr : cc: Normal [facility] KNEE W/ONE OBLIQUE Final ReportAccession No: [id number] Performed: Dec 12 2017 3:33PMExamination: LEFT KNEE W/ONE OBLIQUEEXAM TYPE: KNEE W/ONE OBLIQUE LEFTEXAM DATE AND TIME: 12/12/2017 3:33 PM EDTINDICATION: 52-year-old female with bilateral knee pain after trauma.COMPARISON: None.TECHNIQUE: 3 views of the left knee.FINDINGS: No acute fracture. Joint alignment is anatomic. Joint spaces arepreserved. No significant joint effusion. Soft tissues are within normallimits.IMPRESSION:No acute fracture or traumatic malalignment.Interpreting Physician: MICHELLE DOMINGUEZ D.O.Trans: dcarr : cc: Normal [facility] CT CHEST W/CONTRASTon 2017 CT CHEST W/CONTRAST Final ReportAccession No: [id number] Performed: Nov 14 2017 4:14PMExamination: CT CHEST W/CONTRASTTYPE: CT CHEST W/CONTRASTEXAM DATE AND TIME: 11/14/2017 4:14 PM EDTINDICATION: 52 years old Female with chronic back and rib pain.COMPARISON: None.TECHNIQUE: CT scan of chest was performed without contrast.Dose reduction techniques were achieved by using automated exposurecontroland/or adjustment of mA and/or kV according to patient size and/or use ofiterative reconstruction technique.FINDINGS:MEDIASTI NUM: Visualized airways are patent. Heart is normal in sizewithoutpericardial effusion. Normal caliber thoracic aorta with mild to moderateatherosclerotic changes. No enlarged lymph nodes are identified.PLEURAL CAVITY: Biapical pleural scarring.LUNGS: Hyperinflated lungs with moderate centrilobular emphysematouschanges ofthe upper lungs. Several noncalcified pulmonary nodules (series 3): 4 mmposterior segment right upper lobe (image 24), 2 medial segment rightmiddlelobe pulmonary nodules measuring up to 6 mm (images 66 and 59), multiplerightlower lobe noncalcified pulmonary nodules measuring up to 5 mm (image 59,63and 70), 4 mm anterior segment left upper lobe (image 44), and 5 mmsubpleuralsuperior segment left lower lobe (image 51).CHEST WALL/AXILLA: No axillary lymphadenopathy.VISUALIZED UPPER ABDOMEN: No acute findings.BONES: No destructive lesions. Mild degenerative spondylosis of themidthoracicspine.IMPRESS ION:1. Moderate emphysematous changes.2. Several noncalcified pulmonary nodules measuring up to 6 mm.Recommend [address] follow-up.3. No displaced rib fractures. No acute vertebral body compressionfractures.4. Mild degenerative changes of the midthoracic spine.Interpreting Physician: MICHELLE DOMINGUEZ D.O.Trans: bminni : cc: Normal [facility] CBC with Diffon 10-29-2017 Basophils Auto #/vol (Bld) 0.0 K/mcL Normal 0-0.[address] [facility] Comment on above: Performed By: #### C MET, CBCDIF, SEDR, CRPQT ####Unless otherwise noted, all testing performed by [address] [phone]: [id number] Director: Jose L Bowling M.D. Basophils/100 WBC Auto (Bld) 0.7 % Normal [facility] Comment on above: Performed By: #### C MET, CBCDIF, SEDR, CRPQT ####Unless otherwise noted, all testing performed by [address] [phone]: [id number] Director: Jose L Bowling M.D. Eosinophils Auto #/vol (Bld) 0.2 K/mcL Normal 0-0.[address] [facility] Comment on above: Performed By: #### C MET, CBCDIF, SEDR, CRPQT ####Unless otherwise noted, all testing performed by [address] [phone]: [id number] Director: Jose L Bowling M.D. Eosinophils/100 WBC Auto (Bld) 3.7 % Normal [facility] Comment on above: Performed By: #### C MET, CBCDIF, SEDR, CRPQT ####Unless otherwise noted, all testing performed by [address] [phone]: [id number] Director: Jose L Bowling M.D. Erythrocyte distribution width Auto Ratio (RBC) 14.6 % High 10.0-14.[address] [facility] Comment on above: Performed By: #### C MET, CBCDIF, SEDR, CRPQT ####Unless otherwise noted, all testing performed by [address] [phone]: [id number] Director: Jose L Bowling M.D. Hematocrit Auto Volume Fraction (Bld) 38.5 % Normal 34.4-44.[address] [facility] Comment on above: Performed By: #### C MET, CBCDIF, SEDR, CRPQT ####Unless otherwise noted, all testing performed by [address] [phone]: [id number] Director: Jose L Bowling M.D. Hemoglobin mass conc (Bld) 12.5 g/dL Normal 11.6-15.[address] [facility] Comment on above: Performed By: #### C MET, CBCDIF, SEDR, CRPQT ####Unless otherwise noted, all testing performed by [address] [phone]: [id number] Director: Jose L Bowling M.D. Lymphocytes Auto #/vol (Bld) 2.4 K/mcL Normal 1.0-3.[address] [facility] Comment on above: Performed By: #### C MET, CBCDIF, SEDR, CRPQT ####Unless otherwise noted, all testing performed by [address] [phone]: [id number] Director: Jose L Bowling M.D. Lymphocytes/100 WBC Auto (Bld) 45.3 % Normal [facility] Comment on above: Performed By: #### C MET, CBCDIF, SEDR, CRPQT ####Unless otherwise noted, all testing performed by [address] [phone]: [id number] Director: Jose L Bowling M.D. MCH Auto Entitic mass (RBC) 28.8 pg Normal 27.9-33.[address] [facility] Comment on above: Performed By: #### C MET, CBCDIF, SEDR, CRPQT ####Unless otherwise noted, all testing performed by [address] [phone]: [id number] Director: Jose L Bowling M.D. MCHC Auto mass conc (RBC) 32.4 g/dL Low 33.1-35.[address] [facility] Comment on above: Performed By: #### C MET, CBCDIF, SEDR, CRPQT ####Unless otherwise noted, all testing performed by [address] [id number]: [id number] Director: Jose L Bowling M.D. MCV Auto Entitic volume (RBC) 88.9 fL Normal 82.6-98.[address] [facility] Comment on above: Performed By: #### C MET, CBCDIF, SEDR, CRPQT ####Unless otherwise noted, all testing performed by [address] [id number]: [id number] Director: Jose L Bowling M.D. Monocytes Auto #/vol (Bld) 0.4 K/mcL Normal 0.1-0.[address] [facility] Comment on above: Performed By: #### C MET, CBCDIF, SEDR, CRPQT ####Unless otherwise noted, all testing performed by [address] [id number]: [id number] Director: Jose L Bowling M.D. Monocytes/100 WBC Auto (Bld) 8.1 % Normal [facility] Comment on above: Performed By: #### C MET, CBCDIF, SEDR, CRPQT ####Unless otherwise noted, all testing performed by [address] [phone]: [id number] Director: Jose L Bowling M.D. Neutrophils Auto #/vol (Bld) 2.2 K/mcL Normal 1.2-6.[address] [facility] Comment on above: Performed By: #### C MET, CBCDIF, SEDR, CRPQT ####Unless otherwise noted, all testing performed by [address] [phone]: [id number] Director: Jose L Bowling M.D. Platelet mean volume Auto Entitic volume (Bld) 8.4 fL Normal 7.0-10.[address] [facility] Comment on above: Performed By: #### C MET, CBCDIF, SEDR, CRPQT ####Unless otherwise noted, all testing performed by [address] [id number]: [id number] Director: Jose L Bowling M.D. Platelets Auto #/vol (Bld) 206 K/mcL Normal 162-[address] [facility] Comment on above: Performed By: #### C MET, CBCDIF, SEDR, CRPQT ####Unless otherwise noted, all testing performed by [address] [phone]: [id number] Director: Jose L Bowling M.D. RBC Auto #/vol (Bld) 4.33 M/mcL Normal 3.7-5.0 [facility] Comment on above: Performed By: #### C MET, CBCDIF, SEDR, CRPQT ####Unless otherwise noted, all testing performed by [address] [phone]: [id number] Director: Jose L Bowling M.D. Segmented Neut % 42.2 % Normal [facility] Comment on above: Performed By: #### C MET, CBCDIF, SEDR, CRPQT ####Unless otherwise noted, all testing performed by [address] [phone]: [id number] Director: Jose L Bowling M.D. WBC Auto #/vol (Bld) 5.2 K/mcL Normal 3.4-10.6 [facility] Comment on above: Performed By: #### C MET, CBCDIF, SEDR, CRPQT ####Unless otherwise noted, all testing performed by [address] [phone]: [id number] Director: Jose L Bowling M.D. CRP, C-Reactive Protein Protein mass conc g/dL Normal 0.0-10.0 [facility] Comment on above: Performed By: #### C MET, CBCDIF, SEDR, CRPQT ####Unless otherwise noted, all testing performed by [address] [phone]: [id number] Director: Jose L Bowling M.D. Comprehensive Metabolic Pane [facility] 10-29-2017 Albumin mass conc 3.2 g/dL Normal 3.2-5.2 [facility] Comment on above: Performed By: #### C MET, CBCDIF, SEDR, CRPQT ####Unless otherwise noted, all testing performed by [address] [id number]: [id number] Director: Jose L Bowling M.D. ALP enzyme act/vol 111 U/L Normal 40-150 [facility] Comment on above: Performed By: #### C MET, CBCDIF, SEDR, CRPQT ####Unless otherwise noted, all testing performed by [address] [phone]: [id number] Director: Jose L Bowling M.D. ALT enzyme act/vol 11 U/L Low 14-65 [facility] Comment on above: Result Comment: This test result might be falsely depressed or falsely elevated onsamples drawn from patients taking Sulfasalazine and Sulfapyridine.Venipuncture should occur prior to taking either of these drugs. Performed By: #### C MET, CBCDIF, SEDR, CRPQT ####Unless otherwise noted, all testing performed by [address] [phone]: [id number] Director: Jose L Bowling M.D. AST enzyme act/vol 15 U/L Normal 0-45 [facility] Comment on above: Result Comment: This test result might be falsely depressed or falsely elevated onsamples drawn from patients taking Sulfasalazine and Sulfapyridine.Venipuncture should occur prior to taking either of these drugs. Performed By: #### C MET, CBCDIF, SEDR, CRPQT ####Unless otherwise noted, all testing performed by [address]CLIA: [id number] Director: Jose L Bowling M.D. Bilirubin mass conc 0.5 mg/dL Normal 0.3-1.2 [facility] Comment on above: Performed By: #### C MET, CBCDIF, SEDR, CRPQT ####Unless otherwise noted, all testing performed by [address] [phone]: [id number] Director: Jose L Bowling M.D. Calcium mass conc 8.6 mg/dL Normal 8.4-10.2 [facility] Comment on above: Performed By: #### C MET, CBCDIF, SEDR, CRPQT ####Unless otherwise noted, all testing performed by [address] [phone]: [id number] Director: Jose L Bowling M.D. Chloride molar conc 112 mmol/L High 98-108 [facility] Comment on above: Performed By: #### C MET, CBCDIF, SEDR, CRPQT ####Unless otherwise noted, all testing performed by [place] [phone]: [id number] Director: Jose L Bowling M.D. CO2 molar conc 28 mmol/L Normal 21-[address] [facility] Comment on above: Performed By: #### C MET, CBCDIF, SEDR, CRPQT ####Unless otherwise noted, all testing performed by [place] [phone]: [id number] Director: Jose L Bowling M.D. Creatinine mass conc 0.81 mg/dL Normal 0.40-1.10 [facility] Comment on above: Performed By: #### C MET, CBCDIF, SEDR, CRPQT ####Unless otherwise noted, all testing performed by [place] [phone]: [id number] Director: Jose L Bowling M.D. GFR/1.73 sq M predicted among blacks MDRD vol rate/area (S/P/Bld) mL/min/{1.73_m2} Normal [facility] Comment on above: Result Comment: Afri can Dutch GFR Calc Performed By: #### C MET, CBCDIF, SEDR, CRPQT ####Unless otherwise noted, all testing performed by [address] [phone]: [id number] Director: Jose L Tawnya, M.D. GFR/1.73 sq M predicted among non-blacks MDRD vol rate/area (S/P/Bld) mL/min/{1.73_m2} Normal [facility] Comment on above: Result Comment: Non- GFR CalceGFR is an estimated Glomerular Filtration Rate based on the valueof the patient's serum creatinine. In outpatients, eGFR should be usedas a helpful tool in screening for CKD. In inpatients or patients withacute renal failure, eGFR represents the GFR at the moment of the drawand should be used with caution. Performed By: #### C MET, CBCDIF, SEDR, CRPQT ####Unless otherwise noted, all testing performed by [place] [phone]: [id number] Director: Jose L Bowling M.D. Glucose mass conc 84 mg/dL Normal 70-99 [facility] Comment on above: Result Comment: This test result might be falsely depressed or falsely elevated onsamples drawn from patients taking Sulfasalazine and Sulfapyridine.Venipuncture should occur prior to taking either of these drugs. Performed By: #### C MET, CBCDIF, SEDR, CRPQT ####Unless otherwise noted, all testing performed by [address] [phone]: [id number] Director: Jose L Bowling M.D. Potassium molar conc 4.6 mmol/L Normal 3.5-5.1 [facility] Comment on above: Performed By: #### C MET, CBCDIF, SEDR, CRPQT ####Unless otherwise noted, all testing performed by [address] [phone]: [id number] Director: Jose L Bowling M.D. Protein mass conc 5.7 g/dL Low 6.0-8.0 [facility] Comment on above: Performed By: #### C MET, CBCDIF, SEDR, CRPQT ####Unless otherwise noted, all testing performed by [address] [phone]: [id number] Director: Jose L Bowling M.D. Sodium molar conc 145 mmol/L Normal 135-145 [facility] Comment on above: Performed By: #### C MET, CBCDIF, SEDR, CRPQT ####Unless otherwise noted, all testing performed by [address] [phone]: [id number] Director: Jose L Bowling M.D. Urea nitrogen mass conc 12 mg/dL Normal 8-[address] [facility] Comment on above: Performed By: #### C MET, CBCDIF, SEDR, CRPQT ####Unless otherwise noted, all testing performed by [address] [phone]: [id number] Director: Jose L Bowling M.D. HIPon 10-29-2017 HIP Final ReportAccession No: [id number] Performed: Oct 29 2017 3:14PMExamination: LEFT HIPEXAMINATION: HIP LEFT [id number] HISTORY: 51 years Female with history of Pain/No Trauma.COMPARISON: None available.FINDINGS/IMPRESSI ON:The left hip is intact without fracture or malalignment.Mild degenerative changes of the left hip. Center to the edge andcoverage ofthe acetabulum is bottom normal limits.Interpreting Physician: NEGIN COLMEAN M.D.Trans: [id number] : cc: Normal [facility] MRI LUMBAR SPINE W/O CONTon 10-29-2017 MRI LUMBAR SPINE W/O CONT Final ReportAccession No: [id number] Performed: Oct 29 2017 7:10PMExamination: MRI LUMBAR SPINE W/O CONTMRI THORACIC SPINE W/O CONT, MRI LUMBAR SPINE W/O CONTHISTORY: Pain, loss of bowel and bladder control.COMPARISON: None.TECHNIQUE: Multiplanar multisequential MR images were performed of thethoracicand lumbar spine without intravenous contrast.FINDINGS:THORACIC SPINE: Alignment within the thoracic spine is unremarkable.There isno evidence of significant marrow edema to suggest acute fracture. Novertebralbody compression deformity is evident. There are degenerative endplatechangesat the inferior endplate of T7 and T8. Mild diffuse disc desiccation isnoted.Spinal cord signal and caliber are unremarkable within the thoracicspine. Thefacets are anatomically aligned. There is no significant disc herniationcreating a significant spinal canal stenosis. Within what is likely therightninth posterior medial rib there is a 1 x 0.6 cm T1 hypointense/M2xtsxcconjurnz void focus (see series 11 image 15, series 10 image 15 and series 9image 16).Additionally, there is a similar, but smaller-appearing focus within theposterior medial right eighth rib (best seen on the sagittal views such asseries 10 image 16 and series 9 image 16). Partially visualized is mildretrolisthesis of C5 on C6 with degenerative disc and endplate changeswithpossible encroachment on the ventral thecal sac.LUMBAR SPINE: The conus medullaris terminates at the L1-L2 level. Lumbarspinealignment is unremarkable. The facets are anatomically aligned. Noevidence ofacute fracture is present. The disc spaces are maintained.At T12-L1, there is no significant spinal canal or neural foraminalstenosis.At L1-L2, there is no significant spinal canal or neural foraminalstenosis.At L2-L3, there is no significant spinal canal or neural foraminalstenosis.At L3-L4, there is a minimal disc bulge without significant spinal canalorneural foraminal stenosis.At L4-L5, there is a mild disc bulge and probable small annular fissure(series2 image 8), as well as mild facet arthrosis without significant spinalcanal orneural foraminal stenosis.At L5-S1, there is a disc bulge without significant spinal canal stenosis.There is a perineural sleeve cyst at the right L5-S1 neural foraminacausingmild encroachment on the right neural foramina.No paraspinal masses are present. There are several small Tarlov cysts atthesacral levels. There may be a small left renal cyst partially evaluated.IMPRESSION:No acute fracture or evidence of an acute osseous process within thethoracicor lumbar spine. Spinal cord signal and caliber are unremarkable.Mild degenerative changes are noted within the thoracic and lumbar spineasdetailed above. Incompletely evaluated is a disc osteophyte complex atC5-V5ulcvl may be causing effacement of the ventral thecal sac.At what is likely the right posterior medial eighth and ninth ribs, therearesmall nonspecific T2 hyperintense ovoid foci as described above. MRIthoracicspine with and without intravenous contrast to evaluate for enhancement orcontrast-enhanced CT chest may be able to better characterize theselesions. Ifthere are suspicious features to these lesions on the aforementionedrecommended tests then nuclear medicine bone scan may be helpful toevaluatefor increased metabolic uptake.The findings were discussed with Dr. Clifton at 8:40 PM on October 29, 2017.Interpreting Physician: JESSICA WOODALL M.D.Trans: lwolfe : cc: Normal [facility] MRI THORACIC SPINE W/O CONTo n 10-29-2017 MRI THORACIC SPINE W/O CONT Final ReportAccession No: [id number] Performed: Oct 29 2017 6:43PMExamination: MRI THORACIC SPINE W/O CONTMRI THORACIC SPINE W/O CONT, MRI LUMBAR SPINE W/O CONTHISTORY: Pain, loss of bowel and bladder control.COMPARISON: None.TECHNIQUE: Multiplanar multisequential MR images were performed of thethoracicand lumbar spine without intravenous contrast.FINDINGS:THORACIC SPINE: Alignment within the thoracic spine is unremarkable.There isno evidence of significant marrow edema to suggest acute fracture. Novertebralbody compression deformity is evident. There are degenerative endplatechangesat the inferior endplate of T7 and T8. Mild diffuse disc desiccation isnoted.Spinal cord signal and caliber are unremarkable within the thoracicspine. Thefacets are anatomically aligned. There is no significant disc herniationcreating a significant spinal canal stenosis. Within what is likely therightninth posterior medial rib there is a 1 x 0.6 cm T1 hypointense/T7mxfkpvduawrfu void focus (see series 11 image 15, series 10 image 15 and series 9image 16).Additionally, there is a similar, but smaller-appearing focus within theposterior medial right eighth rib (best seen on the sagittal views such asseries 10 image 16 and series 9 image 16). Partially visualized is mildretrolisthesis of C5 on C6 with degenerative disc and endplate changeswithpossible encroachment on the ventral thecal sac.LUMBAR SPINE: The conus medullaris terminates at the L1-L2 level. Lumbarspinealignment is unremarkable. The facets are anatomically aligned. Noevidence ofacute fracture is present. The disc spaces are maintained.At T12-L1, there is no significant spinal canal or neural foraminalstenosis.At L1-L2, there is no significant spinal canal or neural foraminalstenosis.At L2-L3, there is no significant spinal canal or neural foraminalstenosis.At L3-L4, there is a minimal disc bulge without significant spinal canalorneural foraminal stenosis.At L4-L5, there is a mild disc bulge and probable small annular fissure(series2 image 8), as well as mild facet arthrosis without significant spinalcanal orneural foraminal stenosis.At L5-S1, there is a disc bulge without significant spinal canal stenosis.There is a perineural sleeve cyst at the right L5-S1 neural foraminacausingmild encroachment on the right neural foramina.No paraspinal masses are present. There are several small Tarlov cysts atthesacral levels. There may be a small left renal cyst partially evaluated.IMPRESSION:No acute fracture or evidence of an acute osseous process within thethoracicor lumbar spine. Spinal cord signal and caliber are unremarkable.Mild degenerative changes are noted within the thoracic and lumbar spineasdetailed above. Incompletely evaluated is a disc osteophyte complex atC5-N1pxukh may be causing effacement of the ventral thecal sac.At what is likely the right posterior medial eighth and ninth ribs, therearesmall nonspecific T2 hyperintense ovoid foci as described above. MRIthoracicspine with and without intravenous contrast to evaluate for enhancement orcontrast-enhanced CT chest may be able to better characterize theselesions. Ifthere are suspicious features to these lesions on the aforementionedrecommended tests then nuclear medicine bone scan may be helpful toevaluatefor increased metabolic uptake.The findings were discussed with Dr. Clifton at 8:40 PM on October 29, 2017.Interpreting Physician: JESSICA WOODALL M.D.Trans: [email or web address] : cc: Normal [facility] Sed Rateon 10-29-2017 Sed Rate 9 MM/hr. Normal 0-[address] [facility] Comment on above: Performed By: #### C MET, CBCDIF, SEDR, CRPQT ####Unless otherwise noted, all testing performed by [facility], [place] [phone]: [id number] Director: Jose L Bowling M.D. ED NOTEon 03-02-2017 [facility] NOTES Normal [facility] NOT[facility] Normal [facility] ED PROVIDERon 03-02-2017 [facility] NOTES Normal [facility] MRI MYOCARDIUM W/WO CONTRAST [id number] 01-03-2017 MRI MYOCARDIUM W/WO CONTRAST [id number] Performed at [facility] APPROVED BY: MAYI IRBY MD EXAM TITLE:MRI MYOCARDIUM W/WO CONTRAST [id number] DATE:01/03/2017 13:03 COMPARISON: None. CLINICAL INDICATION/HISTORY: Suspicion for a mobile right atrial mass. IMPRESSION:1. The left ventricle is normal in structure and function.2. The calculated left ventricular ejection fraction is 57%. There are no regional wall motion abnormalities. 3. Delayed hyperenhancement sequences indicated no evidence of scars involving the left or right ventricles.4. The right ventricle is normal in structure and function., 5. The right and left atria appear to be normal in size. On stacks of four-chamber views (series 28) and LVOT short axis views (series 33), it is apparent that there is significant lipomatous infiltration of the interatrial septum extending along the lateral wall of the right atrium. No true intracardiac masses are identified. In the LVOT short axis view (series 33), the same infiltration is visualized, creating the impression of a mobile mass (it measures 1.1 x 0.6 cm). There also appears to be a rather prominent buddy terminalis. There is no evidence of intracardiac thrombi/malignant tumor such as lymphoma/angiosarcomas. This was confirmed by the first pass of gadolinium and on late gadolinium enhancement sequences. No significant valvular abnormalities seen.6. A small circumferential pericardial effusion is present without changes of tamponade.7. The great vessels including the aorta, main pulmonary artery, superior and inferior vena cavae and pulmonary veins are within normal limits. MEASUREMENTS: A. GREAT VESSELS:I. Aortic root 27 mm II. Ascending Aorta 29 mm III. Descending Aorta: 21 mm IV. Main Pulmonary Artery 26 mm V. RIGHT Pulmonary Artery 20 mm . Left Pulmonary Artery 15 mm B. LEFT VENTRICLE: I. End Diastolic dimension 50 mmII. End systolic dimension 30 mmIII. LVEF 57 %IV. Anteroseptal wall 5 mmV. Inferolateral wall 4 mm C. RIGHT VENTRICLE:I. Major Dimension 61 mmII.Minor Dimension 27 mm VOLUMES:I. Left Ventricular End systolic Volume index (LVESVI) 26 ml/m2 (10-43)II. Left Ventricular End diastolic Volume index (LVEDVI) 62 ml/m2 (51-110)III. Left Ventricular Stroke Volume index (LVSVI) 35 ml/m2 (20-62)IV. Cardiac Index 2.7 L/min/m2 (2.5-3.0) Normal [facility] Vital Signs Date Time Vital Sign Value Performing Clinician Facility 01-13-2025 13:57-0400 Body height 157.48 cm Christa Iverson NPibabyboxC Work Phone: [facility] 01-13-2025 13:57-0400 Body mass index (BMI) [Ratio] 32 kg/m2 Christa Iverson NP-C Work Phone: [facility] 01-13-2025 13:57-0400 Body weight 79.37 kg Christa Iverson NP-C Work Phone: [facility] 01-06-2025 13:48-0400 Body height 157.48 cm Christa Iverson NPibabyboxC Work Phone: [facility] 01-06-2025 13:48-0400 Body mass index (BMI) [Ratio] 31.4 kg/m2 Christa Lorson COOK MANAGER-C Work Phone: [facility] 01-06-2025 13:48-0400 Body weight 78.01 kg Christa Lorson COOK MANAGER-C Work Phone: [facility] 12-11-2024 14:23-0400 Body height 157.48 cm Christa Lorson COOK MANAGER-C Work Phone: [facility] 12-11-2024 14:23-0400 Body mass index (BMI) [Ratio] 31.4 kg/m2 Christa Lorson COOK MANAGER-C Work Phone: [facility] 12-11-2024 14:23-0400 Body weight 78.01 kg Christa Lorson COOK MANAGER-C Work Phone: [facility] 10-14-2024 13:23-0400 Body height 157.48 cm Christa Lorson COOK MANAGER-C Work Phone: [facility] 10-14-2024 13:23-0400 Body mass index (BMI) [Ratio] 30.9 kg/m2 Christa Lorson COOK MANAGER-C Work Phone: [facility] 10-14-2024 13:23-0400 Body weight 76.65 kg Christa Lorson COOK MANAGER-C Work Phone: [facility] 09-02-2024 13:58-0400 Body height 157.48 cm Christa Lorson COOK MANAGER-C Work Phone: [facility] 09-02-2024 13:58-0400 Body mass index (BMI) [Ratio] 30.9 kg/m2 Christa Lorson COOK MANAGER-C Work Phone: [facility] 09-02-2024 13:58-0400 Body weight 76.65 kg Christa Lorson COOK MANAGER-C Work Phone: [facility] 05-29-2024 10:46-0500 Body mass index (BMI) [Ratio] 30.42 kg/m2 Mony Harley PA-C Work Phone: 05-29-2024 10:46-0500 Body weight 73.94 kg Mony Harley PA-C Work Phone: 08-07-2023 08:50-0400 Body mass index (BMI) [Ratio] 30.61 kg/m2 Julee Barrera MD Work Phone: 08-07-2023 08:50-0400 Body weight 74.39 kg Julee Barrera MD Work Phone: 08-07-2023 08:50-0400 Diastolic blood pressure 78 mm[Hg] Julee Barrera MD Work Phone: 08-07-2023 08:50-0400 Heart rate 70 /min Julee Barrera MD Work Phone: 08-07-2023 08:50-0400 Respiratory rate 14 /min Julee Barrera MD Work Phone: 08-07-2023 08:50-0400 SaO2% (BldA) [Mass fraction] 97 % Julee Barrera MD Work Phone: 08-07-2023 08:50-0400 Systolic blood pressure 110 mm[Hg] Julee Barrera MD Work Phone: 08-07-2023 08:40-0400 Body height 155.9 cm Pulm Wstr Work Phone: 08-07-2023 08:40-0400 Body mass index (BMI) [Ratio] 30.76 kg/m2 Pulm Wstr Work Phone: 08-07-2023 08:40-0400 Body weight 74.75 kg Pulm Wstr Work Phone: 08-07-2023 08:40-0400 Heart rate 70 /min Pulm Wstr Work Phone: 08-07-2023 08:40-0400 Respiratory rate 14 /min Pulm Wstr Work Phone: 08-07-2023 08:40-0400 SaO2% (BldA) [Mass fraction] 97 % Pulm Wstr Work Phone: 09-27-2022 14:12-0400 Respiratory rate 16 /min DR JIMI LUTZ MD [address] [place] [address] 09-27-2022 13:41-0400 Diastolic Blood Pressure Non-Invasive [address] JIMI LUTZ MD [address] [place] [address] 09-27-2022 13:41-0400 Heart rate 82 /min DR JIMI LUTZ MD [address] [place] [address] 09-27-2022 13:41-0400 Respiratory rate 16 /min DR JIMI LUTZ MD [address] [place] [address] 09-27-2022 13:41-0400 Systolic Blood Pressure Non-Invasive [address] JIMI LUTZ MD [address] [place] [address] 09-27-2022 13:25-0400 Diastolic Blood Pressure Non-Invasive [address] JIMI LUTZ MD [address] [place] [address] 09-27-2022 13:25-0400 Heart rate 75 /min DR JIMI LUTZ MD [address] [place] [address] 09-27-2022 13:25-0400 Respiratory rate 16 /min DR JIMI LUTZ MD [address] [place] [address] 09-27-2022 13:25-0400 Systolic Blood Pressure Non-Invasive [address] JIMI LUTZ MD [address] [place] [address] 09-27-2022 13:12-0400 Diastolic Blood Pressure Non-Invasive [address] JIMI LUTZ MD [address] [place] [address] 09-27-2022 13:12-0400 Heart rate 75 /min DR JIMI LUTZ MD [address] [place] [address] 09-27-2022 13:12-0400 Systolic Blood Pressure Non-Invasive [address] JIMI LUTZ MD [address] [place] [address] 09-27-2022 09:24-[address] Cuff Size DR JIMI LUTZ MD [address] [place] [address] 09-27-2022 09:24-[address] JIMI LUTZ MD [address] [place] [address] 09-27-2022 09:24-[address] JIMI LUTZ MD [address] [place] [address] 09-27-2022 09:24-0400 Body height 157.[address] JIMI LUTZ MD [address] [place] [address] 09-27-2022 09:24-0400 Body temperature 97.16 [degF] DR JIMI LUTZ MD [address] [place] [address] 09-27-2022 09:24-0400 Body weight 72.[address] JIMI LUTZ MD [address] [place] [address] 09-27-2022 09:24-0400 Body weight 29.27 kg/m2 DR JIMI LUTZ MD [address] [place] [address] 05-24-2022 19:40-0500 Diastolic blood pressure 65 mm[Hg] [facility] 05-24-2022 19:40-0500 Heart rate 60 /min [facility] 05-24-2022 19:40-0500 Respiratory rate 16 /min [facility] 05-24-2022 19:40-0500 SaO2% (BldA) [Mass fraction] 96 % [facility] 05-24-2022 19:40-0500 Systolic blood pressure 145 mm[Hg] [facility] 05-24-2022 17:52-0500 Body height 157.48 cm [facility] 05-24-2022 17:52-0500 Body mass index (BMI) [Ratio] 28.5 kg/m2 [facility] 05-24-2022 17:52-0500 Body temperature 97.5 [degF] [facility] 05-24-2022 17:52-0500 Body weight 70.95 kg [facility] 07-22-2021 19:12-0400 Body height 157.48 cm [facility] Work Phone: 07-22-2021 19:12-0400 Body mass index (BMI) [Ratio] 25.4 kg/m2 [facility] Work Phone: 07-22-2021 19:12-0400 Body temperature 96.6 [degF] [facility] Work Phone: 07-22-2021 19:12-0400 Body weight 63.04 kg [facility] Work Phone: 07-22-2021 19:12-0400 Diastolic blood pressure 82 mm[Hg] [facility] Work Phone: 07-22-2021 19:12-0400 Heart rate 96 /min [facility] Work Phone: 07-22-2021 19:12-0400 Respiratory rate 18 /min [facility] Work Phone: 07-22-2021 19:12-0400 SaO2% (BldA) [Mass fraction] 97 % [facility] Work Phone: 07-22-2021 19:12-0400 Systolic blood pressure 177 mm[Hg] [facility] Work Phone: 02-09-2021 14:15-0500 Body height 157.5 cm EMILIE TORRE [facility] 11-09-2021 14:15-0500 Body weight 63.6 kg EMILIE SUPPAN DPM [facility] 02-09-2021 14:15-0500 Body weight 25.64 kg/m2 EMILIE SUPPAN DPM [facility] 02-09-2021 14:15-0500 diastolic 46 mm[Hg] EMILIE SUPPAN DPM [facility] 02-09-2021 14:15-0500 Heart rate 76 /min EMILIE SUPPAN DPM [facility] 02-09-2021 14:15-0500 systolic 126 mm[Hg] EMILIE SUPPAN DPM [facility] 11-22-2018 08:47-0400 Body Temperature 97.7 [degF] [place], [place] 11-22-2018 08:47-0400 BP Diastolic 75 mm[Hg] [place] 11-22-2018 08:47-0400 BP Systolic 143 mm[Hg] [place] 11-22-2018 08:47-0400 Pulse (Heart Rate) 66 /min [place], [place] 11-22-2018 08:47-0400 Pulse Oximetry 100 % [place] 11-22-2018 08:47-0400 Respiratory Rate 15 /min [place] 11-22-2018 06:38-0400 BMI (Body Mass Index) 21.4 kg/m2 [place] 11-22-2018 06:38-0400 Body weight 53.07 kg [place] 11-22-2018 06:38-0400 Height 157.5 cm [place] 11-17-2017 08:59-0400 BMI (Body Mass Index) 21.93 kg/m2 [facility] 11-17-2017 08:59-0400 Body Temperature 98.01 [degF] [facility] 11-17-2017 08:59-0400 BP Diastolic 72 mm[Hg] [facility] 11-17-2017 08:59-0400 BP Systolic 115 mm[Hg] [facility] 11-17-2017 08:59-[address] [facility] 11-17-2017 08:59-0400 Pulse (Heart Rate) 89 /min [facility] 11-17-2017 08:59-0400 Pulse Oximetry 95 % [facility] 11-17-2017 08:59-[address] [facility] Encounters Encounter Date Encounter Type Care Provider Facility Start: 03-14-2025 ambulatory Tyler Wang Facility :[facility] Start: 03-11-2025 [facility] Start: 02-12-2025 ambulatory [facility] Start: 01-29-2025 End: 01-29-2025 ambulatory CHRISTA IVERSON APRN-BATTALION CHIEF Facility:[facility] Start: 01-29-2025 End: 01-29-2025 Patient encounter procedure CHRISTA IVERSON [employer] PROJECT MANAGER-BATTALION CHIEF [facility] Start: 01-13-2025 End: 01-13-[address] Tyler Wang DO -[facility] Work Phone: Start: 01-13-2025 End: 01-13-2025 ambulatory Christa Iverson COOK MANAGER-C Work Phone: -[facility] Start: 01-06-2025 End: 01-06-2025 Patient encounter procedure Maile Coughlin COOK MANAGER-C -[facility] Work Phone: Start: 01-06-2025 End: 01-06-2025 ambulatory Christa Iverson COOK MANAGER-C Work Phone: -[facility] Start: 01-01-2025 End: 01-01-2025 ambulatory Christa Iverson COOK MANAGER-C Work Phone: -MRI - WC Start: 01-01-2025 End: 01-01-2025 Patient encounter procedure Maile Coughlin NP-C -MRI - [facility] Work Phone: Start: 01-01-2025 End: 01-01-2025 ambulatory Christa Iverson COOK MANAGER Facility:[facility] Start: 12-11-2024 End: 12-11-2024 Patient encounter procedure Maile Coughlin COOK MANAGER-C -[facility] Work Phone: Start: 12-11-2024 End: 12-11-2024 ambulatory Christa Iverson COOK MANAGER-C Work Phone: -[facility] Start: 12-03-2024 End: 12-03-2024 ambulatory Christa Kishor COOK MANAGER-C Work Phone: -Physical Therapy Start: 12-03-2024 End: 12-03-2024 Discharged Recurring Maile Coughlin COOK MANAGER-C -Physical Therapy Work Phone: Start: 12-02-2024 ambulatory CHRISTA IVERSON [employer]STRU[employer] PROJECT MANAGER-BATTALION CHIEF Facility:[facility] Start: 11-28-2024 ambulatory CHRISTA IVERSON [employer]RICAL [employer]STRUCTION PROJECT MANAGER-BATTALION CHIEF Facility:[facility] Start: 11-04-2024 End: 11-04-2024 ambulatory CHRISTA IVERSON E[employer]RICAL [employer]STRUCTION PROJECT MANAGER-BATTALION CHIEF Facility:[facility] Start: 11-04-2024 End: 11-04-2024 Patient encounter procedure COLLIN WRAY [employer]RICAL [employer]STRUCTION PROJECT MANAGER-BATTALION CHIEF [facility] Start: 10-14-2024 End: 10-14-2024 Patient encounter procedure Maile Coughlin COOK MANAGER-C -[facility] Work Phone: Start: 10-14-2024 End: 10-14-2024 ambulatory Christa Iverson COOK MANAGER-C Work Phone: -[facility] Start: 09-24-2024 ambulatory Christa Iverson COOK MANAGER Facil ity:[facility] Start: 09-02-2024 End: 09-02-[address] Petey Delgado MD -[facility] Start: 09-02-2024 End: 09-02-2024 ambulatory Christa Iverson COOK MANAGER-C Work Phone: [facility] Work Phone: Start: 08-14-2024 End: 08-14-2024 ambulatory CHRISTA BUTCHDONNA [employer]RICAL CONSTRUCTION PROJECT MANAGER-BATTALION CHIEF Facility:[facility] Start: 08-14-2024 End: 08-14-2024 Patient encounter procedure CHRISTA RAEDONNA ELECTRICAL [employer]STRUCTION PROJECT MANAGER-BATTALION CHIEF [facility] Start: 08-12-2024 End: 08-16-2024 ambulatory CHRISTAGENIE IVERSON ELECTRICAL CONSTRUCTION PROJECT MANAGER-BATTALION CHIEF Facility:[facility] Start: 08-12-2024 End: 08-16-2024 Outreach Lab CHRISTA RAEDONNA [employer]ICAL [employer]STRUCTION PROJECT MANAGER-BATTALION CHIEF [facility] Start: 07-17-2024 End: 07-17-2024 ambulatory CHRISTA RAEDONNA [employer]LECTRICAL CONSTRUCTION PROJECT MANAGER-BATTALION CHIEF Facility:[facility] Start: 07-16-2024 End: 07-16-2024 ambulatory CHRISTA IVERSON ELECTRICAL CONSTRUCTION PROJECT MANAGER-BATTALION CHIEF Facility:[facility] Start: 06-27-2024 End: 06-27-2024 ambulatory CHRISTA KISHOR [employer]ICAL [employer]STRUCTION PROJECT MANAGER-BATTALION CHIEF Facility:[facility] Start: 06-10-2024 End: 06-10-2024 ambulatory CHRISTA IVERSON ELECTRICAL CONSTRUCTION PROJECT MANAGER-BATTALION CHIEF Facility:[facility] Start: 06-04-2024 ambulatory CHRISTA IVERSON ELECTRICAL CONSTRUCTION PROJECT MANAGER-BATTALION CHIEF Facility:[facility] Start: 05-29-2024 End: 05-29-2024 ambulatory CHRISTA IVERSON Facility:[facility] Start: 05-29-2024 End: 05-29-2024 Patient encounter procedure Mony HERRERAC Work Phone: Pulmonary Medicine Comment on above: Stage 3 severe COPD by GOLD classification (HCC) (Primary Dx); Former smoker Start: 05-27-2024 End: 05-31-2024 ambulatory CHRISTA IVERSON ELECTRICAL CONSTRUCTION PROJECT MANAGER-BATTALION CHIEF Facility:[facility] Start: 05-27-2024 End: 05-31-2024 Outreach Lab CHRISTA IVERSON ELECTRICAL [employer]STRUCTION PROJECT MANAGER-BATTALION CHIEF [facility] Start: 04-01-2024 End: 04-01-2024 ambulatory CHRISTA IVERSON Facility:[facility] Start: 12-26-2023 End: 12-26-2023 Patient encounter procedure CHRISTA IVERSON E[employer]RICAL [employer]STRUCTION PROJECT MANAGER-BATTALION CHIEF [facility] Start: 11-30-2023 End: 11-30-2023 ambulatory CHRISTA IVERSON ELECTRICAL CONSTRUCTION PROJECT MANAGER-BATTALION CHIEF Facility:[facility] Start: 11-30-2023 End: 11-30-2023 Patient encounter procedure CHRISTA IVERSON E[employer]RICAL [employer]STRUCTION PROJECT MANAGER-BATTALION CHIEF [facility] Start: 10-20-2023 ambulatory CHRISTA IVERSON ELECTRICAL CONSTRUCTION PROJECT MANAGER-BATTALION CHIEF Facility:[facility] Start: 10-19-2023 End: 10-19-2023 ambulatory CHRISTA IVERSON ELECTRICAL CONSTRUCTION PROJECT MANAGER-BATTALION CHIEF Facility:[facility] Start: 10-19-2023 End: 10-19-2023 Patient encounter procedure KELLEE CHADWICK MD [facility] Start: 10-17-2023 End: 10-17-2023 ambulatory CHRISTA IVERSON ELECTRICAL CONSTRUCTION PROJECT MANAGER-BATTALION CHIEF Facility:[facility] Start: 10-17-2023 End: 10-17-2023 Patient encounter procedure REGINA BARNEY DO [facility] Start: 09-15-2023 End: 09-15-2023 ambulatory CHRISTA IVERSON E[employer]RICAL [employer]STRUCTION PROJECT MANAGER-BATTALION CHIEF Facility:[facility] Start: 09-15-2023 End: 09-15-2023 Patient encounter procedure DWAINE CHARLTON DO [facility] Start: 08-15-2023 End: 08-15-2023 ambulatory CHRISTA IVERSON ELECTRICAL CONSTRUCTION PROJECT MANAGER-BATTALION CHIEF Facility:[facility] Start: 08-15-2023 End: 08-15-2023 Patient encounter procedure CHRISTA KISHOR [employer]STRUCTION PROJECT MANAGER-BATTALION CHIEF [facility] Start: 08-11-2023 Refill Julee Barrera MD Work Phone: Pulmonary Medicine Comment on above: Refill Request Start: 08-10-2023 ambulatory Julee Barrera MD Work Phone: Pulmonary Medicine Comment on above: hypoxemia Start: 08-07-2023 End: 08-07-2023 ambulatory Pulm Lab [facility] Work Phone: PULM LAB [facility] Comment on above: Spirometry Start: 08-07-2023 End: 08-07-2023 Patient encounter procedure Pulm Lab [facility] Work Phone: PULM LAB [facility] Comment on above: Stage 3 severe COPD by GOLD classification (HCC) (Primary Dx); Cigarette smoker; Lung nodules Start: 07-20-2023 End: 07-20-2023 ambulatory CHRISTA IVERSON E[employer]RICAL [employer]STRUCTION PROJECT MANAGER-BATTALION CHIEF Facility:[facility] Start: 07-20-2023 End: 07-20-2023 Patient encounter procedure CHRISTA IVERSON ELECTRICAL CONSTRUCTION PROJECT MANAGER-BATTALION CHIEF [facility] Start: 06-19-2023 End: 06-19-2023 ambulatory CHRISTA IVERSON ELECTRICAL CONSTRUCTION PROJECT MANAGER-BATTALION CHIEF Facility:[facility] Start: 06-19-2023 End: 06-19-2023 Patient encounter procedure CHRISTA IVERSON ELECTRICAL CONSTRUCTION PROJECT MANAGER-BATTALION CHIEF [facility] Start: 05-26-2023 End: 05-26-2023 ambulatory CHRISTA IVERSON ELECTRICAL CONSTRUCTION PROJECT MANAGER-BATTALION CHIEF Facility:[facility] Start: 05-26-2023 End: 05-26-2023 Patient encounter procedure CHRISTA IVERSON ELECTRICAL CONSTRUCTION PROJECT MANAGER-BATTALION CHIEF [facility] Start: 05-01-2023 End: 05-01-2023 ambulatory CHRISTA IVERSON ELECTRICAL CONSTRUCTION PROJECT MANAGER-BATTALION CHIEF Facility:[facility] Start: 05-01-2023 End: 05-01-2023 Patient encounter procedure CHRISTA IVERSON ELECTRICAL CONSTRUCTION PROJECT MANAGER-BATTALION CHIEF [facility] Start: 04-27-2023 End: 04-27-2023 ambulatory CHRISTA IVERSON ELECTRICAL CONSTRUCTION PROJECT MANAGER-BATTALION CHIEF Facility:[facility] Start: 03-15-2023 End: 03-15-2023 ambulatory CHRISTA IVERSON ELECTRICAL CONSTRUCTION PROJECT MANAGER-BATTALION CHIEF Facility:[facility] Start: 03-15-2023 End: 03-15-2023 Patient encounter procedure CHRISTA IVERSON ELECTRICAL CONSTRUCTION PROJECT MANAGER-BATTALION CHIEF [facility] Start: 03-13-2023 End: 03-13-2023 ambulatory CHRISTA IVERSON ELECTRICAL CONSTRUCTION PROJECT MANAGER-BATTALION CHIEF Facility:[facility] Start: 01-03-2023 End: 01-03-2023 ambulatory CHRISTA IVERSON ELECTRICAL CONSTRUCTION PROJECT MANAGER-BATTALION CHIEF Facility:[facility] Start: 01-03-2023 End: 01-03-2023 Patient encounter procedure CHRISTA IVERSON ELECTRICAL CONSTRUCTION PROJECT MANAGER-BATTALION CHIEF [facility] Start: 12-26-2022 End: 12-30-2022 ambulatory CHRISTA IVERSON ELECTRICAL CONSTRUCTION PROJECT MANAGER-BATTALION CHIEF Facility:[facility] Start: 12-26-2022 End: 12-30-[address] REGULO BADILLO MD [facility] Start: 12-23-2022 End: 12-23-2022 ambulatory CHRISTA IVERSON ELECTRICAL CONSTRUCTION PROJECT MANAGER-BATTALION CHIEF Facility:[facility] Start: 12-23-2022 End: 12-23-2022 [facility] Start: 12-20-2022 End: 12-20-2022 ambulatory CHRISTA IVERSON ELECTRICAL CONSTRUCTION PROJECT MANAGER-BATTALION CHIEF Facility:[facility] Start: 12-20-2022 End: 12-20-2022 Patient encounter procedure CHRISTA IVERSON ELECTRICAL CONSTRUCTION PROJECT MANAGER-BATTALION CHIEF [facility] Start: 12-19-2022 End: 12-19-2022 ambulatory CHRISTA IVERSON ELECTRICAL CONSTRUCTION PROJECT MANAGER-BATTALION CHIEF Facility:[facility] Start: 11-16-2022 End: 11-16-2022 Patient encounter procedure CHRISTA IVERSON ELECTRICAL CONSTRUCTION PROJECT MANAGER-BATTALION CHIEF [facility] Start: 11-15-2022 End: 11-15-2022 Patient encounter procedure CHRISTA IVERSON ELECTRICAL CONSTRUCTION PROJECT MANAGER-BATTALION CHIEF [facility] Start: 09-27-2022 End: 09-27-[address] JIMI LUTZ MD [facility] Start: 09-23-2022 End: 09-23-2022 Patient encounter procedure COLLIN WRAY ELECTRICAL CONSTRUCTION PROJECT MANAGER-BATTALION CHIEF [facility] Start: 08-31-2022 End: 08-31-2022 Patient encounter procedure CHRISTA IVERSON ELECTRICAL CONSTRUCTION PROJECT MANAGER-BATTALION CHIEF [facility] Start: 07-28-2022 End: 07-28-2022 Patient encounter procedure CHRISTA IVERSON ELECTRICAL CONSTRUCTION PROJECT MANAGER-BATTALION CHIEF [facility] Start: 07-11-2022 End: 07-11-2022 Patient encounter procedure CHRISTA IVERSON ELECTRICAL CONSTRUCTION PROJECT MANAGER-BATTALION CHIEF [facility] Start: 05-24-2022 End: 05-24-2022 Emergency department patient visit [facility]Emergency Department Start: 04-15-2022 End: 04-15-2022 Patient encounter procedure CHRISTA IVERSON ELECTRICAL CONSTRUCTION PROJECT MANAGER-BATTALION CHIEF [facility] Start: 03-08-2022 End: 03-08-2022 Subsequent hospital visit by physician [facility] Work Phone: Radiology Start: 02-17-2022 End: 02-17-2022 Patient encounter procedure MARISSA Barrios AURA ELECTRICAL CONSTRUCTION PROJECT MANAGER-BATTALION CHIEF [facility] Start: 02-14-2022 End: 02-14-2022 Patient encounter procedure CHRISTA IVERSON ELECTRICAL CONSTRUCTION PROJECT MANAGER-BATTALION CHIEF [facility] Start: 12-29-2021 End: 01-02-2022 Outreach Lab CHRISTA IVERSON ELECTRICAL CONSTRUCTION PROJECT MANAGER-BATTALION CHIEF [facility] Start: 11-29-2021 End: 11-29-2021 Subsequent hospital visit by physician Regina Barney DO Work Phone: [facility] Comment on above: Arrived Start: 10-12-2021 End: 10-12-2021 ambulatory Janak Dubon MD Work Phone: [facility] [place] Comment on above: Vitamin D deficiency (Primary Dx); Vitamin B12 deficiency; Other idiopathic scoliosis, thoracic region Start: 10-12-2021 End: 10-12-2021 Telemedicine consultation with patient Janak Dubon MD Work Phone: [facility] Start: 08-18-2021 End: 08-18-2021 Patient encounter procedure CHRISTA IVERSON ELECTRICAL [employer]STRUCTION PROJECT MANAGER-BATTALION CHIEF [facility] Start: 07-22-2021 End: 07-22-2021 Emergency department patient visit [facility]Emergency Department Start: 07-19-2021 End: 07-19-2021 Patient encounter procedure [facility]-Pre-Admission Testing Start: 07-06-2021 End: 07-06-2021 Subsequent hospital visit by physician Bone Density [facility] Work Phone: Radiology Comment on above: 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 [place] Comment on above: Smoking Cessation Start: 02-09-2021 End: 02-09-2021 Admission to [facility] EMILIE TORRE [facility] Start: 06-17-2020 End: 06-17-2020 Orders Only Alyx Champion Work Phone: [facility] Start: 11-22-2018 End: 11-22-2018 Subsequent hospital visit by physician Regina Barney Work Phone: [facility] Comment on above: Arrived Start: 02-21-2018 End: 02-21-2018 Patient encounter procedure SHAYY ESPOSITO [facility] Start: 02-21-2018 End: 02-21-2018 Patient encounter procedure Shayyjamison Louisle Vaibhav Work Phone: [facility] Comment on above: Carpal tunnel syndro me, bilateral (Primary Dx); Bilateral wrist pain; Numbness and tingling in both hands Start: 02-18-2018 End: 02-19-2018 Emergency department patient visit Leisa Lomeli Facility:[facility] Start: 12-14-2017 Patient encounter procedure Pamela Arroyo Facility:[facility] Start: 12-12-2017 End: 12-12-2017 Emergency department patient visit [facility] Facility:[facility] Start: 12-05-2017 Patient encounter procedure AMANDA LIGHT [facility] Start: 12-01-2017 Patient encounter procedure BLANCA PATEL [facility] Start: 11-17-2017 End: 11-17-2017 Patient encounter procedure SHAYY ESPOSITO [facility] Amb[facility] Start: 11-17-2017 End: 11-17-2017 Office outpatient new 45 minutes Shayy Esposito Work Phone: [facility] Start: 11-14-2017 Patient encounter procedure Shayy Esposito Facility:[facility] Start: 11-14-2017 End: 11-14-2017 Patient encounter Shayy Esposito Work Phone: [facility] Start: 10-29-2017 End: 10-30-2017 Emergency department patient visit Shamar Clifton Facility:[facility] Start: 09-09-2017 End: 09-09-2017 Emergency department patient visit Araceli Moore Facility:[facility] Start: 03-02-2017 End: 03-02-2017 [facility] Start: 01-10-2017 End: 01-10-2017 Ambulatory Facility[facility] Start: 01-03-2017 End: 01-04-2017 Ambulatory IMCA [facility] Start: 10-12-2016 Ambulatory LUCHO POOLE Facfabio lity:[facility] Procedures Date Procedure Procedure Detail Performing Clinician Start: 01-01-2025 MRI of joint of lowe r extremity Christa Iverson NP-C Work Phone: Start: 01-01-2025 MRI of lumbar spine Alexa Iverson COOK MANAGER-C Work Phone: Start: 09-02-2024 X-ray of lumbar spin e, two or three views Christa Iverson COOK MANAGER-C Work Phone: Start: 09-02-2024 Plain x-ray of pelvi s and lower extremity Christa Iverson COOK MANAGER-C Work Phone: Start: 08-07-2023 Co diffusing capacity E lizbet Barrera MD Work Phone: Start: 06-28-2023 Colonoscopy Pulm [facility] Work Phone: Start: 05-24-2022 CT angiography of ch est with contrast Start: 03-08-2022 Radex hip unilateral with pelvis 2-3 views [facility] Provider Start: 07-22-2021 Plain chest X-ray Start: 07-06-2021 Dxa bone density neris dy 1/> sites axial skel Janak Dubon MD Work Phone: Start: 02-19-2021 Ankle region structu re (body structure) CHRISTA IVERSON [employer]CTION PROJECT MANAGER-BATTALION CHIEF Comment on above: Right ankle lateral stabilization Start: 05-14-2020 Excisional biopsy of breast mass EMILIE SUPPLOVE DPM Comment on above: Right Start: 11-22-2018 OPERATIVE REPORT 3m Sca nning Start: 02-21-2018 End: 02-21-2018 Referral to neurology service Shayy Esposito Work Phone: Start: 05-05-2016 Lipid 1996 panel - S wendy or Plasma [facility] Work Phone: Start: 06-11-2014 Colonoscopy Janak Dubon MD Work Phone: Start: 02-15-2012 Mammography Janak Dubon MD Work Phone: Appendectomy EMILIE TORRE DP M Cardiac catheterization ELI PRESCOTT KISHOR ELECTRICAL CONSTRUCTION PROJECT MANAGER-BATTALION CHIEF section EMILIE COPELANDA N DPM Cholecystectomy EMILIE SUPPAN DPM Decompression of med mukul nerve EMILIE SUPPAN DPM Comment on above: Bilateral Hysterectomy MEILIE SUPPAN DP M Ligation of fallopian tube J ASON SUPPAN DPM Myringoplasty EMILIE TORRE D PM Comment on above: Right Myringotomy and inse rtion of short-term tympanic ventilation tube EMILIE SUPPAN DPM Pilonidal cyst witho ut abscess (disorder) EMILIE SUPPAN DPM Specimen from breast obtained by biopsy (specimen) EMILIE TORRE DPM Comment on above: Left Thyroidectomy EMILIE TORRE D PM Comment on above: left lobe removed in 2010 Urinary bladder stru cture (body structure) EMILIE TORRE DPM Plan of Treatment Date Care Activity Detail Author Start: 10-15-2033 Urine microalbumin profile DTaP,Tdap,Td Vaccine (3 - Td or Tdap) Start: 11-26-2024 End: 11-26-2024 Patient encounter procedure 11/26/2024 11:30 AM EDT Office Visit Pulmonary Medicine [address] [place], [place] [phone] Tanya Herrera APRN.BATTALION CHIEF [address] [place] [address] 6 MTH F/U COPD Pulmonary Medicine Comment on above: 6 MTH F/U COPD Start: 09-02-2024 X-ray of lumbar spin e, two or three views Lumbar Spine 2 or 3 Views [facility] Start: 09-02-2024 XR Lumbar spine 2 or 3 Views [facility] Start: 09-02-2024 Plain x-ray of pelvi s and lower extremity HIP, UNI W/ Pelvis 2-3 Views [facility] Start: 09-02-2024 XR Pelvis and Hip Views [facility] Start: 07-22-2024 Shingrix Vaccine (2 of 2) Shingrix Vaccine (2 of 2) Start: 06-27-2024 Screening for malign ant neoplasm of colon Start: 04-10-2024 End: 04-10-2024 Patient encounter procedure 04/10/2024 10:00 AM EST Office Visit Pulmonary Medicine [address] [place], [place] [phone] Mony Harley, PA-C [address] [place], [place] [phone] 4 MO OV* Pulmonary Medicine Comment on above: 4 MO OV* Start: 12-13-2023 End: 12-13-2023 Patient encounter procedure 12/13/2023 9:00 AM EDT Office Visit Pulmonary Medicine [address] [place] [address] Mony Harley PA-C [address] [place] [address] 4 MO OV* Pulmonary Medicine Comment on above: 4 MO OV* Start: 12-03-2023 Covid-19 Vaccine ( season) Covid-19 Vaccine ( season) Start: 12-03-2023 Influenza vaccination [facility] Start: 12-02-2022 Covid-19 Vaccine ( season) Covid-19 Vaccine ( season) Start: 05-24-2022 Blood chemistry [facility] Start: 05-24-2022 End: 05-24-2022 [facility] Start: 12-02-2021 Influenza vaccination C [facility] Start: 10-12-2021 End: 12-12-2021 25-hydroxyvitamin D3 [Mass/volume] in Serum or Plasma VITAMIN D 25 HYDROXY Lab Routine Vitamin D deficiency Expected: 10/12/2021, Expires: 12/12/2021 [facility] Work Phone: Comment on above: Expected: 10/12/2021 , Expires: 12/12/2021 Start: 10-12-2021 End: 12-12-2021 Cobalamin (Vitamin B12) [Mass/volume] in Serum or Plasma VITAMIN B12 BLOOD Lab Routine Vitamin B12 deficiency Expected: 10/12/2021, Expires: 12/12/2021 [facility] Work Phone: Comment on above: Expected: 10/12/2021 , Expires: 12/12/2021 Start: 05-22-2021 DTaP/Tdap/Td vaccine (2 - Td or Tdap) DTaP/Tdap/Td vaccine (2 - Td or Tdap) [facility] Start: 05-22-2021 Tetanus vaccination [facility] Start: 05-22-2021 Urine microalbumin profile Start: 05-05-2021 Lipid panel Lipid Screening [facility] Start: 05-05-2021 LIPID SCREEN LIPID SCREEN Start: 02-18-2021 Diabetes Screening Diabetes Screenin g Start: 12-02-2020 Influenza vaccination INFLUENZA (#1) Start: 12-03-2019 Influenza vaccinatio n given Sequential Influenza Vaccine (#1) [facility] Start: 05-05-2019 DIABETES SCREEN DIABETES SCREEN [facility] Start: 12-02-2018 Influenza vaccination Flu vaccine (# 1) [place], [place] Start: 11-14-2018 Screening for malign ant neoplasm of lung Lung Cancer Screening Start: 04-19-2018 End: 04-19-2018 Ambulatory 04/19/[address] [facility] Start: 04-11-2018 End: 04-11-2018 Ambulatory 04/11/2018 Social Work Behavioral Health Priya Flowers LISW [address] [place] [address] [phone] [facility] Start: 04-06-2018 End: 04-06-2018 Ambulatory 04/06/2018 Social Work Behavioral Health Priya Flowers [employer] [address] [place] [address] [phone] [facility] Start: 04-04-2018 Pneumococcal 0-64 ye ars Vaccine (2 - PCV) Pneumococcal 0-64 years Vaccine (2 - PCV) [facility] Start: 04-04-2018 Pneumococcal vaccination Pneum ococcal Vaccine (2 of 2 - PCV) Start: 04-04-2018 Pneumococcal Vaccine : 50+ (2 of 2 - PCV) Pneumococcal Vaccine: 50+ (2 of 2 - PCV) Start: 03-22-2018 End: 03-22-2018 Ambulatory 03/22/2018 Office Visit Psychiatry Abner Enciso MD [address] [place] [address] [phone] [facility] Start: 03-14-2018 End: 03-14-2018 Ambulatory 03/14/2018 Social Work Behavioral Health Priya Flowers, [employer] [address] [place] [address] [phone] [facility] Start: 03-07-2018 End: 03-07-2018 Ambulatory 03/07/2018 Social Work Behavioral Health Priya Flowers, [employer] [address] [place] [phone] [facility] Start: 12-12-2017 End: 12-12-2017 Ambulatory 12/12/2017 Office Visit Behavioral Health Abner Enciso MD [address] [place] [address] [phone] [facility] Start: 12-02-2017 Influenza vaccination SEQUENTI AL INFLUENZA VACCINE (#1) [facility] Start: 12-01-2017 End: 12-01-2017 Ambulatory 12/01/2017 Scanned Document General Surgery Pamela Arroyo MD [address] [facility] [address] [place] [address] [phone] [facility] Start: 11-30-2017 End: 11-30-2017 Ambulatory 11/30/2017 Social Work Behavioral Health Priya Flowers, [employer] [address] [place] [address] [phone] [facility] Start: 11-17-2017 End: 11-17-2017 Ambulatory 11/17/2017 Office Visit General Surgery Shayy Esposito CNP [address] [place] [address] [phone] Pamela Arroyo MD [address] [facility] [address] [place] [address] [phone] [facility] Start: 11-16-2017 End: 11-16-2017 Ambulatory 11/16/2017 Social Work Behavioral Health Priya Flowers, [employer] [address] [place] [address] [facility] Start: 11-04-2017 Administration of he rpes zoster vaccine Zoster Vaccines (1 of 2) [facility] Start: 11-04-2017 Breast cancer screen Breast cancer s creen [place] Start: 11-04-2017 Colon cancer screen colonoscopy Colon cancer screen colonoscopy [place] Start: 11-04-2017 Screening for malign ant neoplasm of breast Breast cancer screen [facility] Start: 11-04-2017 Screening for malign ant neoplasm of colon [facility] Start: 11-04-2017 Shingles Vaccine (1 of 2) Shingles Vaccine (1 of 2) [facility] Start: 11-04-2017 SHINGRIX VACCINE (1 of 2) SHINGRIX VACCINE (1 of 2) Start: 07-24-2015 HPV TESTING HPV TESTING Start: 07-24-2015 PAP TESTING PAP TESTING Start: 07-24-2015 Screening for malign ant neoplasm of cervix Start: 06-12-2015 Colonoscopy COLONOSCOPY Start: 06-12-2014 COLORECTAL CANCER SCREENING COLORECTAL CANCER SCREENING Start: 02-14-2013 Mammography MAMMOGRAM Start: 02-14-2013 Screening for malign ant neoplasm of breast Mammogram Screening Start: 11-14-2012 FECAL OCCULT BLOOD FECAL OCCULT BLOO D Start: 11-14-2012 Screening for malign ant neoplasm of colon Fecal Occult Blood Start: 11-04-2012 COLOGUARD (FIT-DNA) COLOGUARD (FIT-D NA) Start: 11-04-[address] COLONOGRAPHY [facility] Start: 11-04-2012 Screening for malign ant neoplasm of [facility] Start: 11-04-2012 SIGMOIDOSCOPY SIGMOIDOSCOPY [facility] Start: 09-26-2010 PNEUMOCOCCAL (2 - PCV) PNEUMOCOCCAL (2 - PCV) Start: 2007 Lipid panel Lipids [facility] Start: 2007 Lipid screen Lipid screen [place], [place] Start: 11-04-1988 Cervical cancer screen Cervical canc er screen [place], [place] Start: 11-04-1986 DTaP/Tdap/Td vaccine (1 - Tdap) DTaP/Tdap/Td vaccine (1 - Tdap) [place] Start: 11-04-1986 Hepatitis B Vaccine (1 of 3 - 19+ 3-dose series) Hepatitis B Vaccine (1 of 3 - 19+ 3-dose series) Start: 11-04-1985 ANNUAL PCP TEAM TOY MAKER ANDERSON DISEASE VISIT ANNUAL PCP TEAM CHRONIC DISEASE VISIT Start: 11-04-1985 Hepatitis C antibody , confirmatory test Hepatitis C Screening [facility] Start: 11-04-1985 HEPATITIS C SCREENING HEPATITIS C SC [facility] Start: 11-04-1985 Hepatitis C screening S [facility] Start: 11-04-1985 SPIROMETRY SPIROMETRY Start: 1983 COVID-19 Vaccine (1 of 2) COVID-19 Vaccine (1 of 2) [facility] Start: 11-04-1982 HIV screen HIV screen [place], [place] Start: 11-04-1982 HIV screening [facility] Start: 1979 Depression Screen Depression Screen [facility] Start: 11-04-1973 Pneumococcal 0-64 ye ars Vaccine (1 of 1 - PPSV23) Pneumococcal 0-64 years Vaccine (1 of 1 - PPSV23) [place] Start: 11-04-1972 COVID-19 VACCINE (1) COVID-19 VACCIN E (1) Start: 11-04-1970 History and physical examination, annual for health maintenance Wellness Visit [facility] Start: 05-07-1968 COVID-19 VACCINE (#1) COVID-19 VACCI NE (#1) Start: 1967 Screening colonoscopy [facility]COPY [facility] Start: 1967 Screening for malign ant neoplasm of cervix PAP SMEAR [facility] Start: 1967 Screening mammography Mammogram [facility] In[facility] spirometry Incentive s pirometry Respiratory Care Routine Q1H PRN until discontinued starting 11/22/2018 [place] Comment on above: Q1H PRN until discon tinued starting 11/22/2018 Initiate Oxygen Ther apy Protocol Initiate Oxygen Therapy Protocol Respiratory Care Routine Daily until discontinued starting 11/22/2018 [place] Comment on above: Daily until disconti nued starting 11/22/2018 MR Lower Extremity Joint [facility] MR Lower extremity W O contrast [facility] OXIMETRY - NOCTURNAL OXIMETRY - NOCTURNAL Procedures Routine Stage 3 severe COPD by GOLD classification (HCC) Ordered: 08/07/2023 [facility] Work Phone: Comment on above: Ordered: 08/07/2023 Patient Education [facility] Work Phone: Patient referral [facility] Work Phone: Phase I & II - meter ed glucose Phase I & II - metered glucose Point of Care Testing Routine As Needed until discontinued starting 11/22/2018 [employer] Comment on above: As Needed until disc ontinued starting 11/22/2018 End: 11-22-2018 Pulse Oximetry Spot Check Pulse Oximetry Spot Check Respiratory Care Routine One Time for 1 Occurrences starting 11/22/2018 until 11/22/2018 [employer] Comment on above: One Time for 1 Occur rences starting 11/22/2018 until 11/22/2018 End: 11-29-2021 US THYROID [facility] Work Phone: Comment on above: Once for 1 Occurrenc es starting 11/29/2021 until 11/29/2021 [facility] Immunization Date Immunization Notes Care Provider Margot mercyone [facility] 01-29-2025 zoster vaccine recombinant; Translations: [Shingrix] CHRISTA IVERSON [employer] [facility] 01-29-2025 influenza, injectabl e, quadrivalent, contains preservative; Translations: [Fluarix PF Quadrivalent ] CHRISTA IVERSON [employer] PROJECT MANA[employer] [facility] 05-27-2024 zoster vaccine recombinant; Translations: [Shingrix] CHRISTA IVERSON [employer] PROJECT MANAGER[employer] [facility] 01-29-2024 influenza, injectabl e, quadrivalent, contains preservative; Translations: [Fluarix PF Prefilled Syringe ] CHRISTA IVERSON [employer] PROJECT MANAGER-BATTALION CHIEF [facility] 10-16-2023 tetanus toxoid, redu miriam diphtheria toxoid, and acellular pertussis vaccine, adsorbed; Translations: [Boostrix (Tdap)] CHRISTA IVERSON [employer] PROJECT MANAGER-BATTALION CHIEF [facility] 01-07-2020 influenza, injectabl e, quadrivalent, preservative free; Translations: [Fluarix PF Quadrivalent ] EMILIE TORRE DPM [facility] 01-07-2020 influenza virus vacc ine, unspecified formulation [facility] Work Phone: 01-22-2019 influenza, injectabl e, quadrivalent, preservative free; Translations: [Fluarix PF Quadrivalent ] EMILIE TORRE DPM [facility] 01-05-2018 influenza virus vacc ine, unspecified formulation CHRISTA IVERSON [employer] PROJECT MANAGER-BATTALION CHIEF [facility] 04-04-2017 pneumococcal polysaccharide vaccine, 23 valent EMILIE TORRE DPM [facility] 03-01-2016 influenza, injectabl e, quadrivalent, contains preservative Janak Dubon MD Work Phone: 02-01-2012 influenza virus vacc ine, unspecified formulation Janak Dubon MD Work Phone: 05-22-2011 tetanus toxoid, redu miriam diphtheria toxoid, and acellular pertussis vaccine, adsorbed Janak Dubon MD Work Phone: 03-07-2011 influenza virus vacc ine, unspecified formulation Janak Dubon MD Work Phone: 03-16-2010 influenza virus vacc ine, unspecified formulation Janak Dubon MD Work Phone: Work Phone: 09-26-2009 pneumococcal polysaccharide vaccine, 23 valent Janak Dubon MD Work Phone: 12-31-2008 influenza virus vacc ine, unspecified formulation Janak Dubon MD Work Phone: Work Phone: Payers Date Payer Category Payer Self-pay [id number] 2023 Unknown [id number] 2017 Medicaid MEDICAID [facility] [id number] 2017-Present [id number] 2013 Medicaid [id number] 2009 Medicaid [id number] 2006 Medicaid [id number] [id number] 2006 Medicaid [id number]. 1.13.159.2.7.3.6 [id number] 1967 Unknown [id number] 2.16.840.1.668818.3.579.2. 1967 Unknown [id number] 2.16.840.1.686082.3.579.2. 1967 Unknown [id number] 2.16.840.1.548919.3.579.2.903 1967 Unknown [id number] 2.16.840.1.124163.3.579.2.90 1967 Unknown [id number] 2.16.840.1.996455.3.579.2. 1967 Unknown [id number] 2..840.1.231155.3.579.2. 1967 Unknown [id number] 2.16.840.1.058003.3.579.2. 1967 Unknown [id number] 2..840.1.250356.3.579.2. 1967 Unknown [id number] 2..840.1.509849.3.579.2. 1967 Unknown [id number] 2.840.1.529949.3.579.2. 1967 Unknown [id number] 2.840.1.174291.3.579.2 1967 Unknown [id number] 2.840.1.019624.3.579.2 1967 Unknown [id number] 2.840.1.307633.3.579.2 1967 Unknown [id number] 2.840.1.348163.3.579.2 1967 Unknown [id number] 2.840.1.250606.3.579.2. 1967 Unknown [id number] 2.840.1.187737.3.579.2 1967 Unknown [id number] 2.840.1.678742.3.579.2. 1967 Unknown [id number] .840.1.762765.3.579.2 1967 Unknown [id number] 2.16.840.1.769046.3.579.2. 1967 Unknown [id number] 2.840.1.521175.3.579.27 1967 Unknown [id number] 2.16.840.1.157521.3.579.2.62 1967 Unknown [id number] 2.16.840.1.000445.3.579.2. 1967 Unknown [id number] 2.16.840.1.533145.3.579.2. 1967 Unknown [id number] 2.16.840.1.081954.3.579.2. 1967 Unknown [id number] 2.16.840.1.856020.3.579.2. 1967 Unknown [id number] 2.16.840.1.100128.3.579.2. 1967 Unknown [id number] 2.16840.1.497866.3.579.2. 1967 Unknown [id number] 2.16.840.1.299608.3.579.2. 1967 Unknown [id number] 2.16.840.1.902450.3.579.2. 1967 Unknown [id number] 2.16.840.1.129525.3.579.2. 1967 Unknown [id number] 2.16840.1.264116.3.579.2. 1967 Unknown [id number] 2.16.840.1.468862.3.579.2. 1967 Unknown [id number] 2.16.840.1.822058.3.579.2. 1967 Unknown [id number] 2.16.840.1.824229.3.579.2. 1967 Unknown [id number] 2.16.840.1.422724.3.579.2. 1967 Unknown [id number] 2.16.840.1.295695.3.579.2.627 1967 Unknown [id number] 2.16.840.1.097122.3.579.2.627 1967 Unknown [id number] 2.16.840.1.911201.3.579.2.627 1967 Unknown [id number] 2.16.840.1.110747.3.579.2.62 1967 Unknown [id number] 2.16.840.1.620554.3.579.2.62 1967 Unknown [id number] 2.16.840.1.098873.3.579.2.62 1967 Unknown [id number] 2.16.840.1.556191.3.579.2.627 Unknown [id number] 2.16.840.1.057183.3.579.2.462 Unknown [id number] 2.16.840.1.695825.3.579.2.462 Unknown [id number] 2.16.840.1.084090.3.579.2.462 Unknown [id number] 2.16.840.1.514096.3.579.2.462 Unknown [id number] 2.16.840.1.379277.3.579.2.462 Unknown [id number] 2.16.840.1.403267.3.579.2.462 Unknown [id number] 2.16.840.1.444131.3.579.2.462 Unknown [id number] 2.16.840.1.669502.3.579.2.462 Unknown [id number] 2.16.840.1.120516.3.579.2.462 Unknown [id number] 2.16.840.1.365776.3.579.2.462 Unknown [id number] 2.16.840.1.711935.3.579.2.462 Unknown [id number] 2.16.840.1.373470.3.579.2.462 Social History Date Type Detail Facility Start: 11-07-2017 End: 05-24-2022 Tobacco smoking status NHIS Current every day smoker Start: 1965 Sex Assigned At Not on file [facility] Start: 02-21-2018 End: 08-07-2023 Cigarettes smoked current (pack per day) - Reported [facility] Start: 11-22-2018 End: 08-07-2023 Alcohol intake Not Currently [facility] Start: 03-02-2018 End: 05-29-2024 Tobacco use and exposure Never used [facility] Start: 03-02-2018 End: 05-29-2024 Alcohol intake Current non-drinker of alcohol (finding) [facility] Start: 11-17-2017 Tobacco Comment 1/2 ppd since age 20 [facility] Start: 07-28-2020 End: 08-25-2023 Heavy tobacco smoker (finding) [facility] Start: 1965 Sex Assigned At Female [facility] Start: 04-03-1986 End: 08-02-2023 History of tobacco use Cigarette Smoker Start: 08-09-2010 Tobacco Comment recently started smoking again Start: 06-11-2021 End: 10-12-2021 Exposure to SARS-CoV-2 (event) Not sure Start: 07-22-2021 End: 05-24-2022 Tobacco smoking status MAIS Unknown if ever smoked [facility] Start: 07-27-2014 None [facility] Start: 10-25-2018 Cigarettes [facility] Start: 11-22-2018 Alcohol intake Ex-drinker (finding) [facility] Work Phone: National Score (1-10 0), lower number is lower risk 71 Start: 08-07-2023 Tobacco Comment recently started smoking again. Up to 2 ppd Start: 06-17-2021 Gender identity Identifies as female gender (finding) Start: 06-17-2021 Sexual orientation Heterosexual (finding) Start: 10-16-2023 End: 10-14-2024 Tobacco smoking status Ex-smoker (finding) [facility] Start: 04-03-1986 End: 08-02-2023 History of tobacco use Current smoker Sexual Orientation [facility] [place] [facility] Start: 05-24-2018 Sex Female (finding) [facility] Functional Status Date Assessment Result Facility 09-27-2022 Functional Status Room check performed [facility] 09-27-2022 Functional Status Maintained [place] [facility] 05-09-2014 Are you deaf, or do you have serious difficulty hearing Yes 05/09/2014 9:31 AM Jessica Henry LPN Yes 05-09-2014 Are you blind, or do you have serious difficulty seeing, even when wearing glasses No 05/09/2014 9:31 AM Jessica Henry LPN No 05-09-2014 Do you have serious difficulty walking or climbing stairs Yes 05/09/2014 9:31 AM Jessica Henry LPN Yes 05-09-2014 Do you have difficul ty dressing or bathing Yes 05/09/2014 9:31 AM Jessica Henry LPN Yes 05-09-2014 Because of a physica l, mental, or emotional condition, do you have difficulty doing errands alone such as visiting a physician's office or shopping No 05/09/2014 9:31 AM Jessica Henry LPN No Mental Status Date Assessment Result Facility 09-27-2022 Mental Status Orientation Oriented x 4 [facility] 09-27-2022 Mental Status [facility] 09-27-2022 Mental Status [facility] 05-24-2022 Cognitive function Voice/Name [facility] Work Phone: 05-09-2014 Because of a physica l, mental, or emotional condition, do you have serious difficulty concentrating, remembering, or making decisions Yes 05/09/2014 9:31 AM Jessica Henry LPN Yes Clinical Notes 06-11-2014 to 01-13-2025 Note Date & Type Note Facility 01-13-2025 Progress note [facility] 01-13-2025 Progress note Note Date/Time January 13, 2025 2:27pm [facility] [address] [place] [address] [address] [place] [address] OFFICE VISIT Date of Service: 01/13/25 MR#: [id number] Acct: [id number] Name: MARYSE PISANO Rep #: [id number] : [id number] Provider: Dr. Александр Wang DO Age/Sex: 59/F Location: [facility] Status: Signed Intake Vital Signs 01/06/25 13:48 01/13/25 13:57 Height 5 ft 2 in 5 ft 2 in Weight: 172 lb 175 lb BMI 31.4 32.0 Intake Visit Reasons: RIGHT HIP Chief Complaint: Right hip pain Accompanied by: Significant Other Is patient in pain?: Yes (right hip ) Pain scale (1-10): 9 Allergies amitriptyline HCl (From Elavil) Allergy (Verified 01/13/25 13:56) Nausea aspirin (ASA) Allergy (Verified 01/13/25 13:56) Nausea bacitracin (From Neosporin (var-[id number]-xaepw)) Allergy (Verified 01/13/25 13:56) Rash bupropion HCl (From Wellbutrin) Allergy (Verified 01/13/25 13:56) Other etodolac (From Lodine) Allergy (Verified 01/13/25 13:56) Unknown ibuprofen Allergy (Verified 01/13/25 13:56) Unknown neomycin (From Neosporin (dwh-khs-mkckh)) Allergy (Verified 01/13/25 13:56) Rash Penicillins (PCN) Allergy (Verified 01/13/25 13:56) Hives poison elis extract Allergy (Verified 01/13/25 13:56) Swelling poison oak extract Allergy (Verified 01/13/25 13:56) Swelling polymyxin B (From Neosporin (irf-bcg-qlwhq)) Allergy (Verified 01/13/25 13:56) Rash rofecoxib (From Vioxx) Allergy (Verified 01/13/25 13:56) Other varenicline (From Chantix) Allergy (Verified 01/13/25 13:56) Rash venom-honey bee (bee venom (honey bee)) Allergy (Verified 01/13/25 13:56) Swelling acetaminophen (From Vicodin) Adverse Reaction (Verified 01/13/25 13:56) Nausea/Vom/Diarrhea adhesive tape Adverse Reaction (Verified 01/13/25 13:56) NEEDS FOLLOW-UP gabapentin Adverse Reaction (Verified 01/13/25 13:56) Other hydrocodone (From Vicodin) Adverse Reaction (Verified 01/13/25 13:56) Nausea/Vom/Diarrhea Medications ?Medication ?Instructions ?Recorded ?Confirmed ?Type levothyroxine 75 mcg tablet 50 mcg PO DAILY 01/08/15 1 History albuterol sulfate 90 mcg/actuation 1 puff inhalation P RN PRN Asthma 04/29/20 01/13/25 History aerosol inhaler cimetidine 200 mg tablet 200 mg PO DAILY 04/29/20 History mometasone-formoterol HFA 100 100 mcg inhalation PRN P RN Asthma 04/29/20 01/13/25 History mcg-5 mcg/actuation aerosol inhaler omeprazole 40 mg capsule,delayed 40 mg PO QDAY 5 01/13/25 History release metoprolol succinate 25 mg 25 mg PO QDAY 10/14/2401/01 History tablet,extended release 24 hr Have you fallen in the past year?: No PFSH Medical History Depression Acute sciatica Anxiety Fibromyalgia Emphysema lung COPD (chronic obstructive pulmonary disease) High blood pressure Surgical History History of ankle surgery History of placement of ear tubes History of reduction surgery of right breast Delivery by section Social History Smoking Status: Former smoker HPI RIGHT HIP Details: This documentation accurately reflects the service provided and the decisions made by me, Dr. Tyler Wang, DO 01/13/25 0922. Part of today?s visit was documented by [ ], acting as scribe. MARYSE PISANO is a 59 year old F new to me previously seen by Maile Coughlin medical history significant for not limited to tobacco abuse admits to sharing 5cigarettes a day with her boyfriend, lumbar radiculopathy affecting right lower extremity here today for right hip pain patient is treating pain with 500mg tylenol every 4-6 hours, pain is described as deep, stabbing, aching. travelingdown to the knee. She denies any numbness or tingling into her right hip. She did aquatic therapy which she wasnt able to do due to her pain. She takes gabapentin, tramadol, muscle relaxer and tylenol. She is unable to take NSAIDs due to nausea and vomiting. She denies any prior back surgery or back injury. She uses a rollator to ambulate because of the hip pain. She has had injections into her right hip with the most recent being a greater than 3 months ago. 01/06/2025 visit with Maile Coughlin:59 year old F here today for right hip MRI review. She states that she would like to go over the MRI results to discuss what the next step would be. She states that she did some physical therapy at [facility] in December. Patient states that it was water therapy. She states that she, couldn't handle it. No noted improvement after PT. hip pain worse than last visit with locking. No new injury or falls. Back sx about the same, agg with standing, walking and aggravates R hip pain, Numbness to L thigh x 2 yrs (not previously mentioned), no improvement with injections. Denies loss of bowel or bladder control, saddle anesthesia or progressive paresthesias. Last cortisone injection hip about 1 yr ago, ablation to back July 2024 Hx osteopenia, unsure of when testing was completed and reports no recommended supplementation or medications at that time. Accompanied by mother and brother for today's visit who contribute to HPI and ongoing symptoms. Also inquiring about bilateral hand numbness and dropping things. Plan:We reviewed and discussed MRI findings and recommend dedicated visit with Dr. Wang to discuss interventions Symptom control with previously prescribed meds per pain management including the baclofen, tramadol and pregabalin, OTC Tylenol per package directions. I am also recommending a copy of MRI report to her pain management doctor, Dr. Damon to determine sx control options. Recommended use of heat and topical pain relief per package directions. F/U Dr. Wang Patient in agreement with plan of care This document has been transcribed using [employer] dictation software. There may beincorrect words, spelling, and punctuation. Non smoker, not diabetic (2) DJD (degenerative joint disease), lumbar: Status: Acute Qualifiers: Spinal osteoarthritis complication: with radiculopathy Qualified Code(s): M47.26 - Other spondylosis with radiculopathy, lumbar region Plan: Reviewed MRI of the lumbar spine results during today's visit. Images were collaborated with Dr. Boone with recommended treatment option. Recommend follow-up with stage settings painter, Dr. Damon, with copy of MRI resultsto determine if cortisone injection provides pain relief, and/or improves paresthesia symptoms to the left anterior thigh. Due to the right hip causing the most distressing disability, it is recommended that she pursues treatment options sooner rather than later on her hip. If symptoms continue to the left thigh, worsen or new symptoms develop, contact the office directly to schedule with either Dr. Boone or YASMANY Leon Reviewed red flag symptoms for urgent ED evaluation including loss of bowel or bladder control, saddle anesthesia, progressive and sudden paresthesias, weakness or other concerns. Patient Instructions: Regarding newly reported bilateral hand symptoms of tingling and dropping things, patient has been advised to start with PCP for further evaluation to determine if best managed by orthopedics or neurology. Ortho Exam General General: Yes no acute distress Neurologic: Yes alert and Yes oriented x3 Psychologic: Yes reasonable and appropriate Right Hip Skin: Yes CDI, No Ecchymosis, No soft tissue swelling and No Erythema internal rotation @90 degree flexion: 10 degrees external rotation @90 degree extension: 30 degrees Special Tests: No iliopsoas snap, No TTP Greater Troch, No RROM flexion pain, Yes C sign, Yes FADIR and Yes FADER HIP: no edema. significant pain with IR and ER; almost out of proportion. Significant pain with attempting to rise from a chair Supplemental Info 01/01/2025 MRI right hip: Avascular necrosis of the right femoral head without collapse. Advanced osteoarthritic changes of the right hip. No loose body. Small right joint effusion. Mild degenerative changes of the left hip. No acutefracture. 01/01/2025 MRI lumbar spine: multilevel degenerative disc disease mild stenosis L4-L5 multilevel facet arthropathy 09/02/2024 x-ray right hip: Advanced hip arthrosis joint space narrowing subchondral cystic changes of both femoral head and acetabulum Coding Level of Care Code Off vis,est,level 4 Diagnoses Primary osteoarthritis of right hip M16.11 Osteoarthritis type: primary Tobacco abuse Z72.0 Assessment and Plan Assessment and Plan (1) Osteoarthritis of right hip: Status: Acute Qualifiers: Osteoarthritis type: primary Qualified Code(s): M16.11 - Unilateral primary osteoarthritis, right hip (2) Tobacco abuse: Status: Chronic Plan Patient has significant arthritis of her right hip and is causing her groin pain. Explained her options- physical therapy, weight loss, total hip arthroplasty. Patient does not have any collapse of her femoral head from the AVN that was found on a recent MRI. Spoke with the patient about the surgery procedure, recovery. Patient needs to stop smoking for 6 weeks preop as it increases risk of infections and she will be nicotine tested 3 weeks and 1 week prior to surgery. She should also not smoke for 6 weeks post op. She will be on blood thinners post op for 3 weeks. She will be doing formal physical therapy following her surgery. Spoke with her about having 6 weeks of total hip precautions, then for the next 6 weeks she should do any lifting off the ground.She will be full weightbearing with a walker. Risks, benefits and alternatives of surgery reviewed including but not limited to bleeding, infection, nerve, foot drop, artery and/or tissue damage, fracture, VTE, leg length discrepancy, dislocation, need for hip precautions, continued pain and expected post-operative course. She will need a CT scan for templating. Explained she will have a press fit total hip arthroplasty. She will need a medical clearance, cardiology, pulmonary from her PCP. She is ready to stop smoking and we will schedule her surgery. Due to her medical comorbidities, we will schedule her as inpatient. Will also need medical clearance and CT scan for MAKOplasty. She states she is ready to quit smoking today. Follow up for 2 week post op or sooner if pain, swelling, numbness or associatedsymptoms, or concerns develop. All questions answered. Patient in agreement of plan. Clinical Quality Measures Falls Risk Screening/Assistive Devices Have you fallen in the past year?: No 01/14/25 0736 <Electronically signed by Tyler jarquin DO> Date _ Tyler Wang DO Cosigntom Signature: Date (if applicable) CC: ~ [facility] Work Phone: 1(899) 226-517510-06-2025 [facility] [address] [place] [id number] OFFICE VISIT Date of Service: 01/06/25 MR#: [id number] Acct: [id number] Name: MARYSE PISANO Rep #: [id number] : 1965 Provider: EMILY Coughlin Age/Sex: 59/F Location: [facility] [place].REAL Status: Signed Intake Vital Signs 12/11/24 14:23 01/06/25 13:48 Height 5 ft 2 in 5 ft 2 in Weight: 172 lb BMI 31.4 Intake Visit Reasons: RIGHT HIP Chief Complaint: Right hip MRI review Accompanied by: Is patient in pain?: Yes Pain scale (1-10): 8 Allergies amitriptyline HCl (From Elavil) Allergy (Verified 01/06/25 13:52) Nausea aspirin (ASA) Allergy (Verified 01/06/25 13:52) Nausea bacitracin (From Neosporin (vlu-rri-xqssn)) Allergy (Verified 01/06/25 13:52) Rash bupropion HCl (From Wellbutrin) Allergy (Verified 01/06/25 13:52) Other etodolac (From Lodine) Allergy (Verified 01/06/25 13:52) Unknown ibuprofen Allergy (Verified 01/06/25 13:52) Unknown neomycin (From Neosporin ([id number]-[id number]-[id number])) Allergy (Verified 01/06/25 13:52) Rash Penicillins (PCN) Allergy (Verified 01/06/25 13:52) Hives poison elis extract Allergy (Verified 01/06/25 13:52) Swelling poison oak extract Allergy (Verified 01/06/25 13:52) Swelling polymyxin B (From Neosporin (zyp-sfx-sihqw)) Allergy (Verified 01/06/25 13:52) Rash rofecoxib (From Vioxx) Allergy (Verified 01/06/25 13:52) Other varenicline (From Chantix) Allergy (Verified 01/06/25 13:52) Rash venom-honey bee (bee venom (honey bee)) Allergy (Verified 01/06/25 13:52) Swelling acetaminophen (From Vicodin) Adverse Reaction (Verified 01/06/25 13:52) Nausea/Vom/Diarrhea adhesive tape Adverse Reaction (Verified 01/06/25 13:52) NEEDS FOLLOW-UP gabapentin Adverse Reaction (Verified 01/06/25 13:52) Other hydrocodone (From Vicodin) Adverse Reaction (Verified 01/06/25 13:52) Nausea/Vom/Diarrhea Medications ?Medication ?Instructions ?Recorded ?Confirmed ?Type levothyroxine 75 mcg tablet 50 mcg PO DAILY 01/08/15 1 History albuterol sulfate 90 mcg/actuation 1 puff inhalation P RN PRN Asthma 04/29/20 01/06/25 History aerosol inhaler cimetidine 200 mg tablet 200 mg PO DAILY 04/29/2009/25 History mometasone-formoterol HFA 100 100 mcg inhalation PRN P RN Asthma 04/29/20 01/06/25 History mcg-5 mcg/actuation aerosol inhaler omeprazole 40 mg capsule,delayed 40 mg PO QDAY 5 01/06/25 History release metoprolol succinate 25 mg 25 mg PO QDAY 10/14/2409/25 History tablet,extended release 24 hr Have you fallen in the past year?: Yes PFSH Medical History Depression Acute sciatica Anxiety Fibromyalgia Emphysema lung COPD (chronic obstructive pulmonary disease) High blood pressure Surgical History History of ankle surgery History of placement of ear tubes History of reduction surgery of right breast Delivery by section Social History Smoking Status: Former smoker HPI RIGHT HIP Details: This documentation accurately reflects the service provided and the decisions made by me, Maile Coughlin NP-C 01/06/25 1508. Part of today?s visit was documented by Enedina Begum MA, acting as scribe. MARYSE PISANO is a 59 year old F here today for right hip MRI review. She statesthat she would liketo go over the MRI results to discuss what the next step would be. She states that she did some physical therapy at [facility] back in December. Patient states that it was water therapy. She states that she, couldn't handle it. No noted improvement after PT. Agree with above, hip pain worse than last visit with locking. No new injury or falls. Back sx about the same, agg with standing, walking and aggravates R hip pain, Numbness to L thigh x2 yrs (not previously mentioned), no improvement with injections. Denies loss of bowel or bladder control, saddle anesthesia or progressive paresthesias. Last cortisone injection hip about 1 yr ago, ablation to back July 2024 Hx osteopenia, unsure of when testing was completed and reports no recommended supplementation or medications at that time. Accompanied by mother and brother for today's visit who contribute to HPI and ongoing symptoms. Also inquiring about bilateral hand numbness and dropping things. ROS Const All systems reviewed & are unremarkable except as noted in H and other (A&O x 3,no apparentdistress. No recent illness.) ENT Denies dizziness Card Denies chest pain, Denies dyspnea, Denies edema and Reports other (No palpitations) Resp Denies cough, Denies dyspnea and Reports other (No recent URI) GI Reports system reviewed and no additional complaints, except as documented, Denies nausea and Denies vomiting Musc Reports as per HPI, Reports abnormal gait, Reports arthralgias, Reports back pain, Reports limited range of motion and Reports radiating pain into limb Neuro Yes abnormal gait and No dizziness Psych Reports system reviewed and no additional complaints, except as documented Gene/Lymph Denies easy bleeding and Denies easy bruising Ortho Exam General General: Yes no acute distress and Yes well groomed Neurologic: Yes alert and Yes oriented x3 Psychologic: Yes reasonable and appropriate Right Hip Homans Sign: No HIP: Skin is pink, warm, dry and intact. No swelling or discoloration noted. ROM: Flexion 50 degrees; Extension 30 degrees; Adduction less than 10 degrees; Abduction 30 degrees Tenderness: Low back positive; Greater trochanter negative, anterior hip positive; SI joint positive Tests: Logroll positive; RHETT negative; Straight leg raise positive Gait: Ambulatory with right sided limp with hunched gait, no assistive devices used today Full range of distal joints with no symptom aggravation Distal motor or sensory intact with brisk cap refill at 2-3 seconds Spine SPINE TESTING CERVICAL THORACIC LUMBAR Musculoskeletal Strength 0=absent - 5=normal Details: Positive pain with palpation of lumbar spine, generalized, moderate tightness ofleft lower paraspinals compared to right. Positive pain with ROM of the lumbar spine, palpation of right SI joint greater than left SI joint with exam and painwith palpation and motion into the right piriformis region. Symptoms are aggravated with range of motion and hip testing. Forward flexion to approximately 60 degrees, limited rotation and lateral leans. Right lower extremity mildly weaker than left with testing of the hip flexor and knee extensor, ankle dorsiflexor and long toe extensors equal in strength. Distal sensation is intact. Supplemental Info We reviewed right hip MRI results and findings of AVN with no evidence of collapse. We discussed potential treatment options and recommend follow-up appointment with Dr. Wang to further discuss case and determine if/which surgical intervention would provide best outcomes. Impression: Avascular necrosis of the right femoral head without collapse. Advanced osteoarthritic changes of the right hip. No loose body. Small right joint effusion. Mild degenerative changes of the left hip. No acute fracture. We reviewed lumbar spine MRI, collaborated with Dr. Boone prior to today's discussion. Per our discussion and presenting symptoms, it is recommended patient to follow-up with her pain management doctor, Dr. Damon, with the MRI findings and trial cortisone injection to see if this helps manage hersymptoms. IMPRESSION: Mild multilevel degenerative disc disease as stated above. Mild central stenosis at L4-5. Multilevel facet arthropathy. Coding Level of Care Code Off vis,est,level 4 Diagnoses Primary osteoarthritis of right hip M16.11 Osteoarthritis type: primary Osteoarthritis of spine with radiculopathy, lumbar region M47.26 Spinal osteoarthritis complication: with radiculopathy Assessment and Plan Assessment and Plan (1) Osteoarthritis of right hip: Status: Acute Qualifiers: Osteoarthritis type: primary Qualified Code(s): M16.11 - Unilateral primary osteoarthritis, right hip Plan: We reviewed and discussed MRI findings and recommend dedicated visit with Dr. Wang to discuss interventions Symptom control with previously prescribed meds per pain management including the baclofen, tramadol and pregabalin, OTC Tylenol per package directions. I am also recommending a copy of MRI report to her pain management doctor, Dr. Damon to determinesx control options. Recommended use of heat and topical pain relief per package directions. F/U Dr. Wang Patient in agreement with plan of care This document has been transcribed using SnapLogic dictation software. There may beincorrect words, spelling, and punctuation. Non smoker, not diabetic (2) DJD (degenerative joint disease), lumbar: Status: Acute Qualifiers: Spinal osteoarthritis complication: with radiculopathy Qualified Code(s): M47.26 - Other spondylosis with radiculopathy, lumbar region Plan: Reviewed MRI of the lumbar spine results during today's visit. Images were collaborated with Dr. Boone with recommended treatment option. Recommend follow- up with stage settings painter, Dr. Damon, with copy of MRI resultsto determine if cortisone injection provides pain relief, and/or improves paresthesia symptoms to the left anterior thigh. Due to the right hip causing the most distressing disability, it is recommended that she pursues treatment options sooner rather than later on her hip. If symptoms continue to the left thigh, worsen or new symptoms develop, contact the office directlyto schedule with either Dr. Boone or YASMANY Leon Reviewed red flag symptoms for urgent ED evaluation including loss of bowel or bladder control, saddle anesthesia, progressive and sudden paresthesias, weakness or other concerns. Patient Instructions: Regarding newly reported bilateral hand symptoms of tingling and dropping things, patient has been advised to start with PCP for further evaluation to determine if best managed by orthopedics or neurology. Clinical Quality Measures Falls Risk Screening/Assistive Devices Have you fallen in the past year?: Yes 01/06/25 1502 n COOK MANAGER-C> Date _ Maile Sinclairigner Signature: Date (if applicable) CC: ~ [facility]10-06-2025 Progress note Author Maile Coughlin [facility] Note Date/Time January 06, 2025 2: 34pm [facility] [address] [place] [address] [address] [place] [address] OFFICE VISIT Date of Service: 01/06/25 MR#: [id number] Acct: [id number] Name: MARYSE PISANO Rep #: [id number] : 1965 Provider: EMILY Coughlin Age/Sex: 59/F Location: [facility] [place].REAL Status: Signed Intake Vital Signs 12/11/24 14:23 01/06/25 13:48 Height 5 ft 2 in 5 ft 2 in Weight: 172 lb BMI 31.4 Intake Visit Reasons: RIGHT HIP Chief Complaint: Right hip MRI review Accompanied by: Is patient in pain?: Yes Pain scale (1-10): 8 Allergies amitriptyline HCl (From Elavil) Allergy (Verified 01/06/25 13:52) Nausea aspirin (ASA) Allergy (Verified 01/06/25 13:52) Nausea bacitracin (From Neosporin (pad-nta-nhuyf)) Allergy (Verified 01/06/25 13:52) Rash bupropion HCl (From Wellbutrin) Allergy (Verified 01/06/25 13:52) Other etodolac (From Lodine) Allergy (Verified 01/06/25 13:52) Unknown ibuprofen Allergy (Verified 01/06/25 13:52) Unknown neomycin (From Neosporin (uaz-rjy-ahaci)) Allergy (Verified 01/06/25 13:52) Rash Penicillins (PCN) Allergy (Verified 01/06/25 13:52) Hives poison elis extract Allergy (Verified 01/06/25 13:52) Swelling poison oak extract Allergy (Verified 01/06/25 13:52) Swelling polymyxin B (From Neosporin (lfj-fhb-pjxcs)) Allergy (Verified 01/06/25 13:52) Rash rofecoxib (From Vioxx) Allergy (Verified 01/06/25 13:52) Other varenicline (From Chantix) Allergy (Verified 01/06/25 13:52) Rash venom-honey bee (bee venom (honey bee)) Allergy (Verified 01/06/25 13:52) Swelling acetaminophen (From Vicodin) Adverse Reaction (Verified 01/06/25 13:52) Nausea/Vom/Diarrhea adhesive tape Adverse Reaction (Verified 01/06/25 13:52) NEEDS FOLLOW-UP gabapentin Adverse Reaction (Verified 01/06/25 13:52) Other hydrocodone (From Vicodin) Adverse Reaction (Verified 01/06/25 13:52) Nausea/Vom/Diarrhea Medications ?Medication ?Instructions ?Recorded ?Confirmed ?Type levothyroxine 75 mcg tablet 50 mcg PO DAILY 01/08/15 1 History albuterol sulfate 90 mcg/actuation 1 puff inhalation P RN PRN Asthma 04/29/20 01/06/25 History aerosol inhaler cimetidine 200 mg tablet 200 mg PO DAILY 04/29/2009/25 History mometasone-formoterol HFA 100 100 mcg inhalation PRN P RN Asthma 04/29/20 01/06/25 History mcg-5 mcg/actuation aerosol inhaler omeprazole 40 mg capsule,delayed 40 mg PO QDAY 5 01/06/25 History release metoprolol succinate 25 mg 25 mg PO QDAY 10/14/2409/25 History tablet,extended release 24 hr Have you fallen in the past year?: Yes PFSH Medical History Depression Acute sciatica Anxiety Fibromyalgia Emphysema lung COPD (chronic obstructive pulmonary disease) High blood pressure Surgical History History of ankle surgery History of placement of ear tubes History of reduction surgery of right breast Delivery by section Social History Smoking Status: Former smoker HPI RIGHT HIP Details: This documentation accurately reflects the service provided and the decisions made by me, Mailekelsie Coughlin, COOK MANAGER-C 01/06/25 6701. Part of today?s visit was documented by Enedina Begum MA, acting as scribe. MARYSE PISANO is a 59 year old F here today for right hip MRI review. She statesthat she would like to go over the MRI results to discuss what the next step would be. She states that she did some physical therapy at [facility] back in December. Patient states that it was water therapy. She states that she, couldn't handle it. No noted improvement after PT. Agree with above, hip pain worse than last visit with locking. No new injury or falls. Back sx about the same, agg with standing, walking and aggravates R hip pain, Numbness to L thigh x 2 yrs (not previously mentioned), no improvement with injections. Denies loss of bowel or bladder control, saddle anesthesia or progressive paresthesias. Last cortisone injection hip about 1 yr ago, ablation to back July 2024 Hx osteopenia, unsure of when testing was completed and reports no recommended supplementation or medications at that time. Accompanied by mother and brother for today's visit who contribute to HPI and ongoing symptoms. Also inquiring about bilateral hand numbness and dropping things. ROS Const All systems reviewed & are unremarkable except as noted in H and other (A&O x 3,no apparent distress. No recent illness.) ENT Denies dizziness Card Denies chest pain, Denies dyspnea, Denies edema and Reports other (No palpitations) Resp Denies cough, Denies dyspnea and Reports other (No recent URI) GI Reports system reviewed and no additional complaints, except as documented, Denies nausea and Denies vomiting Musc Reports as per HPI, Reports abnormal gait, Reports arthralgias, Reports back pain, Reports limited range of motion and Reports radiating pain into limb Neuro Yes abnormal gait and No dizziness Psych Reports system reviewed and no additional complaints, except as documented Gene/Lymph Denies easy bleeding and Denies easy bruising Ortho Exam General General: Yes no acute distress and Yes well groomed Neurologic: Yes alert and Yes oriented x3 Psychologic: Yes reasonable and appropriate Right Hip Homans Sign: No HIP: Skin is pink, warm, dry and intact. No swelling or discoloration noted. ROM: Flexion 50 degrees; Extension 30 degrees; Adduction less than 10 degrees; Abduction 30 degrees Tenderness: Low back positive; Greater trochanter negative, anterior hip positive; SI joint positive Tests: Logroll positive; RHETT negative; Straight leg raise positive Gait: Ambulatory with right sided limp with hunched gait, no assistive devices used today Full range of distal joints with no symptom aggravation Distal motor or sensory intact with brisk cap refill at 2-3 seconds Spine SPINE TESTING CERVICAL THORACIC LUMBAR Musculoskeletal Strength 0=absent - 5=normal Details: Positive pain with palpation of lumbar spine, generalized, moderate tightness ofleft lower paraspinals compared to right. Positive pain with ROM of the lumbar spine, palpation of right SI joint greater than left SI joint with exam and painwith palpation and motion into the right piriformis region. Symptoms are aggravated with range of motion and hip testing. Forward flexion to approximately 60 degrees, limited rotation and lateral leans. Right lower extremity mildly weaker than left with testing of the hip flexor and knee extensor, ankle dorsiflexor and long toe extensors equal in strength. Distal sensation is intact. Supplemental Info We reviewed right hip MRI results and findings of AVN with no evidence of collapse. We discussed potential treatment options and recommend follow-up appointment with Dr. Wang to further discuss case and determine if/which surgical intervention would provide best outcomes. Impression: Avascular necrosis of the right femoral head without collapse. Advanced osteoarthritic changes of the right hip. No loose body. Small right joint effusion. Mild degenerative changes of the left hip. No acute fracture. We reviewed lumbar spine MRI, collaborated with Dr. Boone prior to today's discussion. Per our discussion and presenting symptoms, it is recommended patient to follow-up with her pain management doctor, Dr. Damon, with the MRI findings and trial cortisone injection to see if this helps manage her symptoms. IMPRESSION: Mild multilevel degenerative disc disease as stated above. Mild central stenosis at L4-5. Multilevel facet arthropathy. Coding Level of Care Code Off vis,est,level 4 Diagnoses Primary osteoarthritis of right hip M16.11 Osteoarthritis type: primary Osteoarthritis of spine with radiculopathy, lumbar region M47.26 Spinal osteoarthritis complication: with radiculopathy Assessment and Plan Assessment and Plan (1) Osteoarthritis of right hip: Status: Acute Qualifiers: Osteoarthritis type: primary Qualified Code(s): M16.11 - Unilateral primary osteoarthritis, right hip Plan: We reviewed and discussed MRI findings and recommend dedicated visit with Dr. Wang to discuss interventions Symptom control with previously prescribed meds per pain management including the baclofen, tramadol and pregabalin, OTC Tylenol per package directions. I am also recommending a copy of MRI report to her pain management doctor, Dr. Damon to determine sx control options. Recommended use of heat and topical pain relief per package directions. F/U Dr. Wang Patient in agreement with plan of care This document has been transcribed using SnapLogic dictation software. There may beincorrect words, spelling, and punctuation. Non smoker, not diabetic (2) DJD (degenerative joint disease), lumbar: Status: Acute Qualifiers: Spinal osteoarthritis complication: with radiculopathy Qualified Code(s): M47.26 - Other spondylosis with radiculopathy, lumbar region Plan: Reviewed MRI of the lumbar spine results during today's visit. Images were collaborated with Dr. Boone with recommended treatment option. Recommend follow- up with stage settings painter, Dr. Damon, with copy of MRI resultsto determine if cortisone injection provides pain relief, and/or improves paresthesia symptoms to the left anterior thigh. Due to the right hip causing the most distressing disability, it is recommended that she pursues treatment options sooner rather than later on her hip. If symptoms continue to the left thigh, worsen or new symptoms develop, contact the office directly to schedule with either Dr. Boone or YASMANY Leon Reviewed red flag symptoms for urgent ED evaluation including loss of bowel or bladder control, saddle anesthesia, progressive and sudden paresthesias, weakness or other concerns. Patient Instructions: Regarding newly reported bilateral hand symptoms of tingling and dropping things, patient has been advised to start with PCP for further evaluation to determine if best managed by orthopedics or neurology. Clinical Quality Measures Falls Risk Screening/Assistive Devices Have you fallen in the past year?: Yes 01/06/25 8207 <Electronically signed by Maile DIAZ> Date _ MaileRehan Muñiz Signature: Date (if applicable) CC: ~ [facility] Work Phone: 1(885) 707-125709-02-2025 Discharge summary Author Freddie Nair [facility] Note Date/Time December 03, 2024 7:00pm [facility] Physical Therapy [facility] [place] [address] / REHABILITATION SERVICES DISCHARGE SUMMARY MR#: [id number] Acct: [id number] Name: MARYSE PISANO Rep #: [id number] : 1965 59 From: Freddie Nair PT, ATC Referring Dr.: EMILY Coughlin Status: REG RCR Insurance: [facility] SELF PAY INSURANCE Discharge Summary D/C summary: It has been my pleasure to treat MARYSE PISANO referred by THOMAS Brannon, with the diagnosis of Right Hip Pain for a total of 6 visit(s). Discharge Date: Please see the following information for a summary of their discharge status. Subjective Subjective: I have made very little improvement Pain R HIP: Pain Intensity (Out of 10): 6 Overall Improvement % Improvement: 5 Objective Objective/Function: R hip pain ranges from 6-10/10 Pt is limited with all gait and transfers at this time secondary to pain. Pt has not made any significant improvements at this time. Goals Goal 1:: Patient will be I with HEP and progression Goal Progress: Progressing Goal 2:: Patient will ambulate >150 feet with a normalized gait pattern Goal Progress: Not Progressing Goal 3:: Patient will perform all transfer without pain for 1 week Goal Progress: Not Progressing Goal 4:: Patient will maintain proper posture t/o tx session to demo increased core s/s. Goal Progress: Progressing Goal 5:: Patient will report 80% improvement Goal Progress: Not Progressing Plan Plan: Discontinue, return to doctor. D/C Information d/c sentence: If there are questions or concerns regarding this patient's physical therapy, please feel free to call me at [phone]. Thank you for the referral of thispatient. Sincerely, Freddie Nair, PT, ATC Balance/Gait/Functional tests Balance/Special Test Scores Lower Extremity Functional Score: 5 Improvement % Improvement: 5 <Electronically signed by Freddie Nair PT, ATC> 12/03/24 1400 CC: EMILY Iverson; EMILY Coughlin ~ [facility] Signed [facility] Work Phone: 1(929) 950-560209-02-2025 Discharge summary [facility] Physical Therapy [facility] [address] [place] [address] / REHABILITATION SERVICES DISCHARGE SUMMARY MR#: [id number] Acct: [id number] Name: MARYSE PISANO Rep #: [id number] : 1965 59 From: Freddie Nair PT, ATC Referring Dr.: EMILY Coughlin Status: REG RCR Insurance: [facility] SELF PAY INSURANCE Discharge Summary D/C summary: It has been my pleasure to treat MARYSE PISANO referred by THOMAS Brannon, with the diagnosis of Right Hip Pain for a total of 6 visit(s). Discharge Date: Please see the following information for a summary of their discharge status. Subjective Subjective: I have made very little improvement Pain R HIP: Pain Intensity (Out of 10): 6 Overall Improvement % Improvement: 5 Objective Objective/Function: R hip pain ranges from 6-10/10 Pt is limited with all gait and transfers at this time secondary to pain. Pt has not made any significant improvements at this time. Goals Goal 1:: Patient will be I with HEP and progression Goal Progress: Progressing Goal 2:: Patient will ambulate >150 feet with a normalized gait pattern Goal Progress: Not Progressing Goal 3:: Patient will perform all transfer without pain for 1 week Goal Progress: Not Progressing Goal 4:: Patient will maintain proper posture t/o tx session to demo increased core s/s. Goal Progress: Progressing Goal 5:: Patient will report 80% improvement Goal Progress: Not Progressing Plan Plan: Discontinue, return to doctor. D/C Information d/c sentence: If there are questions or concerns regarding this patient's physical therapy, please feel free to call me at [phone]. Thank you for the referral of thispatient. Sincerely, Freddie Nair, PT, ATC Balance/Gait/Functional tests Balance/Special Test Scores Lower Extremity Functional Score: 5 Improvement % Improvement: 5 12/03/24 1400 CC: EMILY Iverson; EMILY Coughlin ~ [facility] Signed [facility]07-14-2025 Evaluation note* Diagnosis Onset Date Resolution Status Admit Date DJD (degenerative joint disease), lumbar acute October 14, 2024 1:07pm Lumbar back pain with radiculopathy affecting right lower extremity acute October 14, 2024 1:07pm Osteoarthritis of right hip acute October 14, 2024 1:07pm DJD (degenerative joint disease), lumbar acute December 11, 2024 2:23pm Lumbar back pain with radiculopathy affecting right lower extremity acute December 11, 2024 2:23pm Osteoarthritis of right hip acute December 11, 2024 2:23pm DJD (degenerative joint disease), lumbar acute January 06 1:45pm Osteoarthritis of right hip acute January 06, 2025 1:45pm [facility] Work Phone: 1(235) 701-461607-14-2025 Evaluation note* Diagnosis Onset Date Resolution Status Admit Date DJD (degenerative joint disease), lumbar acute October 14, 2024 1:07pm Lumbar back pain with radiculopathy affecting right lower extremity acute October 14, 2024 1:07pm Osteoarthritis of right hip acute October 14, 2024 1:07pm DJD (degenerative joint disease), lumbar acute December 11, 2024 2:23pm Lumbar back pain with radiculopathy affecting right lower extremity acute December 11, 2024 2:23pm Osteoarthritis of right hip acute December 11, 2024 2:23pm DJD (degenerative joint disease), lumbar acute January 06 1:45pm Osteoarthritis of right hip acute January 06, 2025 1:45pm Osteoarthritis of right hip acute January 13, 2025 1:44pm Tobacco abuse chronic January 1:44pm [facility] Work Phone: 1([phone]) 690-304106-02-2025 Evaluation note* Diagnosis Onset Date Resolution Status Admit Date Osteoarthritis of right hip acute September 02, 2024 1:56pm [facility] Work Phone: [phone]) 797-210806-02-2025 Evaluation note* Diagnosis Onset Date Resolution Status Admit Date Osteoarthritis of right hip acute September 02, 2024 1:56pm DJD (degenerative joint dise ase), lumbar acute October 14, 2024 1:07pm Lumbar back pain with radiculopathy affecting right lower extremity acute October 14, 2024 1:07pm Osteoarthritis of right hip acute October 14, 2024 1:07pm [facility] Work Phone: 1(803) 290-759006-02-2025 Evaluation note* Diagnosis Onset Date Resolution Status Admit Date Osteoarthritis of right hip acute September 02, 2024 1:56pm DJD (degenerative joint disease), lumbar acute October 14, 2024 1:07pm Lumbar back pain with radiculopathy affecting right lower extremity acute October 14, 2024 1:07pm Osteoarthritis of right hip acute October 14, 2024 1:07pm DJD (degenerative joint disease), lumbar acute December 11, 2024 2:23pm Lumbar back pain with radiculopathy affecting right lower extremity acute December 11, 2024 2:23pm Osteoarthritis of right hip acute December 11, 2024 2:23pm [facility] Work Phone: [phone]) 880-480405-14-2025 Note* Exam Date Time Procedure Performing Provider Status 08/14/24 9:44 AM US Abdomen Limited PREET INGRAM DO; Auth (Verified) [id number] ORIGINAL EXAMINATION: RIGHT UPPER QUADRANT ULTRASOUND 08/14/2024 9:48 am COMPARISON: 11/16/2022 HISTORY: ORDERING SYSTEM PROVIDED HISTORY: Reason for Exam: tremor, focus on adrenals All images are recorded and archived. FINDINGS: LIVER: The liver demonstrates moderate diffuse increased echogenicity without evidence of intrahepatic biliary ductal dilatation. Liver measures 15.4 cm length. BILIARY SYSTEM: Gallbladder surgically absent. Common bile duct is within normal limits measuring 0.7 mm. RIGHT KIDNEY: The right kidney is grossly unremarkable without evidence of hydronephrosis. Right kidney measures 10.0 x 3.9 x 3.7 cm. PANCREAS: Visualized portions of the pancreas are unremarkable. OTHER: No evidence of right upper quadrant ascites. Evaluation demonstrates nonvisualization of both adrenal glands which is nonspecific. There was no adrenal megaly identified on prior CT scan of the chest performed 07/17/2024, where both adrenal glands were visualized. IMPRESSION: 1. Moderate fatty infiltration of the liver. 2. Status post cholecystectomy. 3. Nonvisualization of the adrenal glands. There is no adrenal megaly. Interpreted by: Preet Ingram DO Preliminary Report By: Preet Ingram DO Electronically signed By Preet Ingram DO Dictated Date: 08/14/2024 11:55:41 AM Prelim Date: 08/14/2024 12:02:17 PM Sign Date: 08/14/2024 12:02:17 PM Ordering Provider: CHRISTA IVERSON [facility]02-26-2025 History of Present illness Narrative * Mony Harley PA-C - 05/29/2024 11:00 AM EST Patient: Maryse Pisano PCP: Christa Iverson CNP, SHARAN CC: follow up HPI: Maryse Pisano 58 year old obese female, 64-vkim-kncl former smoker (quit 08/2023) with PMH significant for GERD, Anxiety Disorder, History of Seizures, History of Thyroid Cancer, COPD, and Emphysema by CT of the chest. Last office visit 08/07/2023. Current maintenance therapy with Trelegy and as needed Albuterol. Does not use Albuterol secondary to feeling jittery. Today, patient reports daily cough, non-productive. Occasional wheezing. Exertional dyspnea walkinginclines/steps and carrying groceries and laundry. Her SOB has improved since she stopped smoking. No fevers, chills, or night sweats. No unintended weight loss. No lower extremity edema. No recent hospitalizations or ED visits or upper respiratory infections. 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 Dysthymic disorder Depression (non-psychotic) Esophageal reflux Gastroesophageal reflux Esophagitis, unspecified Generalized anxiety disorder Anxiety, Generalized Hearing disorder Irritable bowel syndrome Irritable bowel Other emphysema (HCC) Emphysema PMH - PAST MEDICAL HISTORY OF PULMONARY NODULE PMH - PAST MEDICAL HISTORY OF SEIZURES Thyroid cancer (HCC) Allergies: Bees Swelling Chantix [Vareniclin* Rash Lice Shampoo [Pyret* Rash Comment:States gets blisters on hands and between fingers and has swelling of hands Wellbutrin [Bupropi* Mental Status Change Carafate [Sucralfat* GI Upset Amitriptyline GI Upset Asa [Salicylates] GI Upset Bacitracin Rash Biaxin [Clarithromy* GI Upset Chlorhexidine Rash Cipro [Ciprofloxaci* GI Upset Aurora Butter Creme * Other: See Comments Comment:breaks out hands Combivent [Ipratrop* Intolerance Comment:SHAKY Darvon [Propoxyphen* GI Upset Comment:RASH Erythromycin GI Upset Lodine [Etodolac] GI Upset Comment:RASH Motrin [Ibuprofen] GI Upset Naprosyn [Naproxen] GI Upset Neomycin Rash Penicillins Hives, GI Upset Poison Elis Rash Prednisone GI Upset Prozac [Fluoxetine * GI Upset Tape [Adhesive Tape* Rash, Swelling Comment:paper/surgical tape Vioxx [Rofecoxib] Anaphylaxis ipratropium-albuterol (DUONEB) 0.5 mg-3 mg(2.5 mg base)/3 mL nebu Inhale 3 mL as instructed every 4hours as needed for wheezing/shortness of breath. traMADol (ULTRAM) 50 mg tablet Take 50 mg by mouth three times a day. baclofen 10 mg tablet Take 10 mg by mouth three times a day. pregabalin (LYRICA) 50 mg capsule Take 50 mg by mouth every 12 hours. zfsmfnnyqkb-bedchxasj-pxwjpaar (TRELEGY ELLIPTA) 100-62.5-25 mcg inhalation powder Inhale 1 Puff asinstructed once daily. albuterol HFA (PROAIR HFA) 90 mcg/actuation inhaler Inhale 2 Puffs as instructed every 4 hours as needed for wheezing/shortness of breath. esomeprazole (NEXIUM) 20 mg capsule Take 20 mg by mouth once daily. levothyroxine (SYNTHROID) 50 mcg tablet Take 50 mcg by mouth once daily. Lactobacillus acidophilus (ACIDOPHILUS ORAL) Take by mouth. cimetidine (TAGAMET HB) 200 mg tablet Take 200 mg by mouth daily at bedtime. Social History Tobacco Use Smoking status: Every Day Current packs/day: 2.00 Average packs/day: 2.0 packs/day for 30.0 years (60.0 ttl pk-yrs) Types: Cigarettes Smokeless tobacco: Never Tobacco comments: recently started smoking again. Up to 2 ppd Vaping Use Vaping status: Former Substance Use Topics Alcohol use: No Drug use: No Family History Problem Relation Age of Onset Heart Mother MVP Psychiatry Mother BIPOLAR Arrhythmia Mother Heart Father panreatic cancer other (Atrial fibrillation) Father Cancer Sister thyroid other (congestive heart failure) Sister Asthma Brother COPD Maternal Grandmother of COPD COPD Maternal Grandfather of COPD other (goiters [Other]) Paternal Grandmother Allergies Daughter pollen Colon Cancer Maternal Uncle other (goiters [Other]) Paternal Aunt other (lung cancer [Other]) Other uncle PAST SURGICAL HISTORY Procedure Laterality Date APPENDECTOMY 04/03/2004 laparoscopic , LOW CERV, IN-HOSP CAR 07/18/1991 DELIVERY ONLY 04/03/1991 , low cervical COLONOSCOPY FLX DX W/COLLJ SPEC WHEN PFRMD 11/28/2008 Colonoscopy / Wong COLONOSCOPY FLX DX W/COLLJ SPEC WHEN PFRMD 08/05/2010 Colonoscopy COLONOSCOPY FLX DX W/COLLJ SPEC WHEN PFRMD 06/11/2014 Colonoscopy EGD TRANSORAL BIOPSY SINGLE/MULTIPLE 01/06/2010 ESOPHAGOGASTRODUODENOSCOPY TRANSORAL DIAGNOSTIC EGD/Wong ESOPHAGOGASTRODUODENOSCOPY TRANSORAL DIAGNOSTIC 08/05/2010 EGD ESOPHAGOGASTRODUODENOSCOPY TRANSORAL DIAGNOSTIC 01/06/2012 EGD ESOPHAGOGASTRODUODENOSCOPY TRANSORAL DIAGNOSTIC 06/11/2014 EGD LAPS ABD PRTM&OMENTUM DX W/WO SPEC BR/WA SPX Laparoscopy LAPS SURG CHOLECYSTECTOMY W/CHOLANGIOGRAPHY 01/14/2010 Normal IOC LIG/TRNSXJ FLP TUBE ABDL/VAG APPR UNI/BI Tubal ligation MYRINGOTOMY 10/20/1106/13 Left with tube PAST SURGICAL HISTORY OF 200? chest tube post ? pain procedure PAST SURGICAL HISTORY OF skin lumps removed REMOVAL GALLBLADDER 2009 TOTAL THYROID LOBECTOMY UNI W/WO ISTHMUSECTOMY 12/20/2010 LEFT WITH ISTHMUS VAGINAL HYSTERECTOMY UTERUS 250 GM/< 04/03/1992 Hysterectomy, vaginal I reviewed the past medical history, family history, social history and surgical history with changes noted above and updated in EMR. IMMUNIZATIONS Immunization History Administered Date(s) Administered influenza (IIV4) vaccine, age 6 mo - 64 yr, quadrivalent (AFLURIA, FLULAVAL, FLUZONE) 03/01/2016 influenza vaccine, unspecified formulation 12/31/2008 03/16/2010 03/07/2011 02/01/2012 pneumococcal polysaccharide (PPV23) vaccine, 23 valent (PNEUMOVAX 23) 09/26/2009 tetanus diphtheria pertussis (Tdap) vaccine, age 7+ yr (ADACEL, BOOSTRIX) 05/22/2011 ROS: All other systems reviewed as negative except for what is noted in HPI and review of systems. PHYSICAL EXAMINATION: BP (P) 130/82 Pulse (P) 67 Resp (P) 16 Wt 73.9 kg (163 lb) SpO2 (P) 98% BMI 30.42 kg/m Gen: No acute distress. Cooperative with examination. HEENT: Normocephalic. Sclera, conjunctiva clear. Edentulous. No thrush. Resp: No stridor, accessory respiratory muscle use, supra-sternal or intercostal retractions. No wheezes, crackles. CV: Regular rythm. Heart tones normal. Radial pulses normal. Ext: Warm and well perfused. No clubbing, cyanosis, edema. Skin: No rash, ecchymoses. Neuro: Mental status normal. Affect normal. No tremor. DATA: Laboratory and Imaging: Last Spirometry SPIROMETRY WITH DILATOR IF OBSTRUCTED Collected: 08/07/2023 8:14 AM (Final result) Narrative: [facility] 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 No contraindications or sensitivities were noted. Meds taken: Trelegy 24/hours before testing. 4 puffs Albuterol (360 mcg) delivered by MDI via holding chamber. HR pre = 70/min, HR post = 70/min. Current ATS/ERS acceptability and repeatability standards for spirometry met. Start of test and EOFE criteria met. The two largest DLCO values were repeatable. IMPRESSION: Spirometry indicates severe obstruction. The increase in RV, in the absence of airway obstruction, is of uncertain significance. The diffusing capacity is moderately reduced. The presence of a reduced lung diffusing capacity - that does not normalize when measured independent of alveolar volume (kCO) suggests a parenchymal or pulmonary vascular disorder. Electronically Signed On 08-07-2023 14:14:56 EDT by Julee Barrera MD ID: [id number] Name: MARYSE PISANO Race: White Ht: 61.38 in Wt: 165.00 lbs Age: 57 Gender: Female : 1965 Dx: COPD_ Smoking Hx: Non-smoker Doctor: JULEE BARRERA Test Date: 08/07/2023 Site: Tech: Lorenza [place] PRE-BRONCH POST-BRONCH Pre LLN Pred ULN %Pred Post %Pred %Chg SPIROMETRY FVC (L) 2.35 2.03 2.77 3.52 85 2.60 93 8 FEV1 (L) 0.96 1.64 2.25 2.83 42 1.12 49 6 FEV1/FVC 0.41 0.69 0.81 0.91 50 0.43 53 4 PEF L/s (L/sec) 2.50 4.54 6.11 7.69 40 2.74 44 9 FEF50 (L/sec) 0.29 1.62 3.23 4.84 8 0.46 14 61 FIF50 (L/sec) 2.70 2.12 -21 FEF50/FIF50 0.11 90-100 0.22 106 FIVC (L) 1.84 2.33 26 GTJ90-34 (L/sec) 0.22 1.24 2.32 3.74 9 0.36 15 59 Time (sec) 15.53 15.39 0 FET PEF (sec) 0.05 0.07 22 WILLIAM (L) 0.02 0.03 26 Vol Extrap % (%) 1 1 14 LUNG DIFFUSION DLCOunc (ml/min/mmHg) 9.37 14.86 21.03 27.20 44 VA (L) 3.49 3.53 4.63 5.73 75 DLunc/VA (ml/min/mmHg/L) 2.69 3.31 4.63 5.95 58 BHT (sec) 11.67 IVC (L) 2.06 Comments: Medications and Allergies were reviewed for possible drug interactions per policy. No contraindications or sensitivities were noted. Meds taken: Trelegy 24/hours before testing. 4 puffs Albuterol (360 mcg) delivered by MDI via holding chamber. HR pre = 70/min, HR post = 70/min. Current ATS/ERS acceptability and repeatability standards for spirometry met. Start of test and EOFE criteria met. The two largest DLCO values were repeatable. CT Chest other findings: Last CT Chest - Impression Only CT CHEST W IVCON Exam End: 11/14/2017 4:14 PM (Final result) Last XR Chest - Impression Only XR CHEST PA W RIBS RT Collected: 03/01/2016 4:45 PM (Final result) Impression: IMPRESSION: No acute finding Public Health Assistant: ALEXX Transcribe Date/Time: Mar 02 2016 3:48P ... ASSESSMENT/PLAN: 1. Stage 3 severe COPD by GOLD classification (HCC) - ICD9: 496, ICD10: J44.9 (primary diagnosis) Continue maintenance therapy with Trelegy. Rinse mouth after each use to help prevent oral thrush. Congratulated patient on stopping smoking. Patient reports completing pulmonary rehab at [facility]. 2. Former smoker - ICD9: V15.82, ICD10: Z87.891 78-gaoc-yfbq smoker with sequelae of COPD. She is enrolled in lung cancer screening at [facility]. Portions of this documentation were copied and pasted from previous office visit notes in order to provide a cohesive continuity of the history. The note has been reviewed and edited and updated as necessary. Mony Harley PA-C documented in this encounter02-26-2025 NoteHNO ID: [id number] Author: MONY HARLEY PA-C Service: ? Author Type: Physician Salesperson Hearing Aids Type: Progress Notes Filed: 05/29/2024 12:50 Note Text: Patient: Maryse Pisano PCP: Christa Iverson CNP, SHARAN CC: follow up HPI: Maryse Pisano 58 year old obese female, 67-ghax-zuzw former smoker (quit 08/2023) with PMH significant for GERD, Anxiety Disorder, History of Seizures, History of Thyroid Cancer, COPD, and Emphysema by CT of the chest. Last office visit 08/07/2023. Current maintenance therapy with Trelegy and as needed Albuterol. Does not use Albuterol secondary to feeling jittery. Today, patient reports daily cough, non-productive. Occasional wheezing. Exertional dyspnea walking inclines/steps and carrying groceries and laundry. Her SOB has improved since she stopped smoking. No fevers, chills, or night sweats. No unintended weight loss. No lower extremity edema. No recent hospitalizations or ED visits or upper respiratory infections. 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 Dysthymic disorder Depression (non-psychotic) Esophageal reflux Gastroesophageal reflux Esophagitis, unspecified Generalized anxiety disorder Anxiety, Generalized Hearing disorder Irritable bowel syndrome Irritable bowel Other emphysema (HCC) Emphysema PMH - PAST MEDICAL HISTORY OF PULMONARY NODULE PMH - PAST MEDICAL HISTORY OF SEIZURES Thyroid cancer (HCC) Allergies: Bees Swelling Chantix [Vareniclin* Rash Lice Shampoo [Pyret* Rash Comment:States gets blisters on hands and between fingers and has swelling of hands Wellbutrin [Bupropi* Mental Status Change Carafate [Sucralfat* GI Upset Amitriptyline GI Upset Asa [Salicylates] GI Upset Bacitracin Rash Biaxin [Clarithromy* GI Upset Chlorhexidine Rash Cipro [Ciprofloxaci* GI Upset Aurora Butter Creme * Other: See Comments Comment:breaks out hands Combivent [Ipratrop* Intolerance Comment:SHAKY Darvon [Propoxyphen* GI Upset Comment:RASH Erythromycin GI Upset Lodine [Etodolac] GI Upset Comment:RASH Motrin [Ibuprofen] GI Upset Naprosyn [Naproxen] GI Upset Neomycin Rash Penicillins Hives, GI Upset Poison Elis Rash Prednisone GI Upset Prozac [Fluoxetine * GI Upset Tape [Adhesive Tape* Rash, Swelling Comment:paper/surgical tape Vioxx [Rofecoxib] Anaphylaxis ipratropium-albuterol (DUONEB) 0.5 mg-3 mg(2.5 mg base)/3 mL nebu Inhale 3 mL as instructed every 4 hours as needed for wheezing/shortness of breath. traMADol (ULTRAM) 50 mg tablet Take 50 mg by mouth three times a day. baclofen 10 mg tablet Take 10 mg by mouth three times a day. pregabalin (LYRICA) 50 mg capsule Take 50 mg by mouth every 12 hours. jtotrjeekql-uoxheuqtg-ipnsiwmm (TRELEGY ELLIPTA) 100-62.5-25 mcg inhalation powder Inhale 1 Puff as instructed once daily. albuterol HFA (PROAIR HFA) 90 mcg/actuation inhaler Inhale 2 Puffs as instructed every 4 hours as needed for wheezing/shortness of breath. esomeprazole (NEXIUM) 20 mg capsule Take 20 mg by mouth once daily. levothyroxine (SYNTHROID) 50 mcg tablet Take 50 mcg by mouth once daily. Lactobacillus acidophilus (ACIDOPHILUS ORAL) Take by mouth. cimetidine (TAGAMET HB) 200 mg tablet Take 200 mg by mouth daily at bedtime. Social History Tobacco Use Smoking status: Every Day Current packs/day: 2.00 Average packs/day: 2.0 packs/day for 30.0 years (60.0 ttl pk-yrs) Types: Cigarettes Smokeless tobacco: Never Tobacco comments: recently started smoking again. Up to 2 ppd Vaping Use Vaping status: Former Substance Use Topics Alcohol use: No Drug use: No Family History Problem Relation Age of Onset Heart Mother MVP Psychiatry Mother BIPOLAR Arrhythmia Mother Heart Father panreatic cancer other (Atrial fibrillation) Father Cancer Sister thyroid other (congestive heart failure) Sister Asthma Brother COPD Maternal Grandmother of COPD COPD Maternal Grandfather of COPD other (goiters [Other]) Paternal Grandmother Allergies Daughter pollen Colon Cancer Maternal Uncle other (goiters [Other]) Paternal Aunt other (lung cancer [Other]) Other uncle PAST SURGICAL HISTORY Procedure Laterality Date APPENDECTOMY 04/03/2004 laparoscopic , LOW CERV, IN-HOSP CAR 07/18/1991 DELIVERY ONLY 04/03/1991 , low cervical COLONOSCOPY FLX DX W/COLLJ SPEC WHEN PFRMD 11/28/2008 Colonoscopy / Wong COLONOSCOPY FLX DX W/COLLJ SPEC WHEN PFRMD 08/05/2010 Colonoscopy COLONOSCOPY FLX DX W/COLLJ SPEC WHEN PFRMD 06/11/2014 Colonoscopy EGD TRANSORAL BIOPSY SINGLE/MULTIPLE 01/06/2010 ESOPHAGOGASTRODUODENOSCOPY TRANSORAL DIAGNOSTIC EGD/Wong ESOPHAGOGASTRODUODENOSCOPY TRANSORAL DIAGNOSTIC 08/05/2010 EGD ESOPHAGOGASTRODUODENOSC (more content not included)...[facility] 08-14-2023 Telephone encounter Note* Telephone Encounter - Alyx Momin LPN - 08/14/2023 8:37 AM EDT Orders pended Alyx Momin LPN 05-13-2024 Miscellaneous Notes* Telephone Encounter - Alyx Momin LPN - 08/14/2023 8:37 AM EDT Orders pended Alyx Momin LPN * Telephone Encounter - Lin Costa - 08/11/2023 4:34 PM EDT Patient reports that she has not received notification of nebulizer or DUONEB being sent to pharmacy. Patient prefers to have orders sent to [facility] in [place]. Please have DUONEB transferred from [facility] in [place] to [facility] in [place] and send nebulizer order. Patient has been identified by name and date of : Yes, Provider PATIENT Patient phones for refill(s): Requested Prescriptions No prescriptions requested or ordered in this encounter Date of last office visit in primary care: 08/07/2023 Date of next office visit in primary care: 12/13/2023 Please advise. Thank you. Lin Costa. documented in this encounter05-10-2024 Telephone encounter Note * Telephone Encounter - Lin Costa - 08/11/2023 4:34 PM EDT Patient reports that she has not received notification of nebulizer or DUONEB being sent to pharmacy. Patient prefers to have orders sent to [facility] in [place]. Please have DUONEB transferred from [facility] in [place] to [facility] in [place] and send nebulizer order. Patient has been identified by name and date of : Yes, Provider PATIENT Patient phones for refill(s): Requested Prescriptions No prescriptions requested or ordered in this encounter Date of last office visit in primary care: 08/07/2023 Date of next office visit in primary care: 12/13/2023 Please advise. Thank you. Lin Costa. 05-09-2024 NoteHNO ID: [id number] Author: JULEE BARRERA MD Service: ? Author Type: Physician Type: Progress Notes Filed: 08/10/2023 14:35 Note Text: Overnight oximetry testing performed. Duration of recording 4 hours and 35 minutes. Patient spent 41 minutes with SpO2 less than 88%, lowest SpO2 79%. Patient qualifies for supplemental oxygen which was ordered through [employer], 2 L at night.[facility]05-09-2024 History of Present illness Narrative* Julee Barrera MD - 08/10/2023 2:34 PM EDT Overnight oximetry testing performed. Duration of recording 4 hours and 35 minutes. Patient spent 41 minutes with SpO2 less than 88%, lowest SpO2 79%. Patient qualifies for supplemental oxygen which was ordered through [employer], 2 L at night. documented in this encounter05-06-2024 History of Present illness Narrative* Julee Barrera MD - 08/07/2023 8:45 AM EDT Images from the original note were not included. . [facility] [place] Note Patient name: Maryse Pisano PCP: Christa Iverson CNP CC: COPD HPI: Maryse Pisano 57 year old female current smoker with PMH significant for GERD, anxiety disorder, history of seizures, history of thyroid cancer, COPD, emphysema by CT of the chest last seen byDr. Cedeno in 2010. Pulmonary nodules has been following up with [facility] in [place] so I do not have images. With regards to her lung disease she has daily dyspnea on exertion, shortness ofbreath is worsened by exposure to cold air, changes in the weather and perfumes. She has daily wheezing and cough productive of phlegm. She has frequent awakenings with shortness of breath. Her inhaled therapy was recently changed from Breo Ellipta to Trelegy Ellipta with continued use of albuterol. She uses her albuterol daily which does offer her some relief. She does not currently have a nebulizer machine at home. She used to have a nebulizer in the past but her machine was lost with a move.She is a current smoker, she was able to quit for currently 8 months but cites a recent stress withher as an excuse to start smoking again. She was a former 2 pack a day smoker smoking half a pack a day. She cannot use nicotine gum due to her edentulous state, nicotine patches caused a rash and Chantix caused side effects necessitating discontinuation. DATA: PFT: Review of spirometry shows moderately severe obstruction, mild improvement in his 20s with bronchodilator, moderate reduction in diffusing capacity Labs: Component Ref Range & Units 5 yr ago WBC 3.4 - 10.6 K/mcL 9.5 RBC 3.7 - 5 M/mcL 4.21 Hemoglobin 11.6 - 15.4 g/dL 12.2 Hematocrit 34.4 - 44.8 % 36.6 MCV 82.6 - 98.9 FL 87.0 MCH 27.9 - 33.9 pg 28.9 MCHC 33.1 - 35.1 g/dL 33.3 RDW 10 - 14.4 % 13.7 Platelets 162 - 402 K/mcL 226 MPV 7 - 10.6 FL 8.3 Absolute Neutrophils 1.2 - 6.9 K/mcL 5.4 Absolute Lymphocytes 1 - 3.7 K/mcL 3.4 Absolute Monocytes 0.1 - 0.6 K/mcL 0.5 Absolute Eosinophils 0 - 0.5 K/mcL 0.2 Absolute Basophils 0 - 0.2 K/mcL 0.0 Segmented Neut % 57.3 Lymphocytes % 35.7 Monocytes % 5.1 Eosinophils % 1.7 Basophils % 0.2 Component Ref Range & Units 19 yr ago Alpha 1 Antitrypsin 100 - 220 mg/dL 150 Imaging / Diagnostic Studies: Last CT of the chest in 2009 at reported as upper lobe emphysema and several smallpulmonary nodules. Accession No: [id number] Performed: Nov 14 2017 4:14PM Examination: CT CHEST W/CONTRAST TYPE: CT CHEST W/CONTRAST EXAM DATE AND TIME: 11/14/2017 4:14 PM EDT INDICATION: 52 years old Female with chronic back and rib pain. COMPARISON: None. TECHNIQUE: CT scan of chest was performed without contrast. FINDINGS: MEDIASTINUM: Visualized airways are patent. Heart [...] lesions. Mild degenerative spondylosis of the midthoracic Spine. IMPRESSION: 1. Moderate emphysematous changes. 2. Several noncalcified pulmonary nodules measuring up to 6 mm. Recommend [address] follow-up. 3. No displaced rib fractures. No acute vertebral body compression fractures. 4. Mild degenerative changes of the midthoracic spine. 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 Dysthymic disorder Depression (non-psychotic) Esophageal reflux Gastroesophageal reflux Esophagitis, unspecified Generalized anxiety disorder Anxiety, Generalized Hearing disorder Irritable bowel syndrome Irritable bowel Other emphysema (HCC) Emphysema PMH - PAST MEDICAL HISTORY OF PULMONARY NODULE PMH - PAST MEDICAL HISTORY OF SEIZURES Thyroid cancer (HCC) ALLERGIES Allergen Reactions Bees Swelling Chantix [Vareniclin* Rash Lice Shampoo [Pyret* Rash States gets blisters on hands and between fingers and has swelling of hands Wellbutrin [Bupropi* Mental Status Change Carafate [Sucralfat* GI Upset Amitriptyline GI Upset Asa [Salicylates] GI Upset Bacitracin Rash Biaxin [Clarithromy* GI Upset Chlorhexidine Rash Cipro [Ciprofloxaci* GI Upset Aurora [employer] * Other: See Comments breaks out hands Combivent [Ipratrop* Intolerance SHAKY Darvon [Propoxyphen* GI Upset RASH Erythromycin GI Upset Lodine [Etodolac] GI Upset RASH Motrin [Ibuprofen] GI Upset Naprosyn [Naproxen] GI Upset Neomycin Rash Penicillins Hives, GI Upset Poison Elis Rash Prednisone GI Upset Prozac [Fluoxetine * GI Upset Tape [Adhesive Tape* Rash, Swelling paper/surgical tape Vioxx [Rofecoxib] Anaphylaxis traMADol (ULTRAM) 50 mg tablet Take 50 mg by mouth three times a day. baclofen 10 mg tablet Take 10 mg by mouth three times a day. pregabalin (LYRICA) 50 mg capsule Take 50 mg by mouth every 12 hours. bmubvoccndn-jqaeerhxz-nigcyxbl (TRELEGY ELLIPTA) 100-62.5-25 mcg inhalation powder Inhale 1 Puff asinstructed once daily. albuterol HFA (PROAIR HFA) 90 mcg/actuation inhaler Inhale 2 Puffs as instructed every 4 hours as needed for wheezing/shortness of breath. esomeprazole (NEXIUM) 20 mg capsule Take 20 mg by mouth once daily. levothyroxine (SYNTHROID) 50 mcg tablet Take 50 mcg by mouth once daily. Lactobacillus acidophilus (ACIDOPHILUS ORAL) Take by mouth. cimetidine (TAGAMET HB) 200 mg tablet Take 200 mg by mouth daily at bedtime. ipratropium-albuterol (DUONEB) 0.5 mg-3 mg(2.5 mg base)/3 mL nebu Inhale 3 mL as instructed every 4hours as needed for wheezing/shortness of breath. Social History Tobacco Use Smoking status: Every Day Packs/day: 2.00 Years: 30.00 Additional pack years: 0.00 Total pack years: 60.00 Types: Cigarettes Smokeless tobacco: Never Tobacco comments: recently started smoking again. Up to 2 ppd Vaping Use Vaping Use: Former Substance Use Topics Alcohol use: No Drug use: No No occupational exposures Pets: Dog FAMILY HISTORY Problem Relation Age of Onset Heart Mother MVP Psychiatry Mother BIPOLAR Arrhythmia Mother Heart Father panreatic cancer other (Atrial fibrillation) Father Cancer Sister thyroid other (congestive heart failure) Sister Asthma Brother COPD Maternal Grandmother of COPD COPD Maternal Grandfather of COPD other (goiters [Other]) Paternal Grandmother Allergies Daughter pollen Colon Cancer Maternal Uncle other (goiters [Other]) Paternal Aunt other (lung cancer [Other]) Other uncle PAST SURGICAL HISTORY Procedure Laterality Date APPENDECTOMY 04/03/2004 laparoscopic , LOW CERV, IN-HOSP CAR 07/18/1991 DELIVERY ONLY 04/03/1991 , low cervical COLONOSCOPY FLX DX W/COLLJ SPEC WHEN PFRMD 11/28/2008 Colonoscopy / Wong COLONOSCOPY FLX DX W/COLLJ SPEC WHEN PFRMD 08/05/2010 Colonoscopy COLONOSCOPY FLX DX W/COLLJ SPEC WHEN PFRMD 06/11/2014 Colonoscopy EGD TRANSORAL BIOPSY SINGLE/MULTIPLE 01/06/2010 ESOPHAGOGASTRODUODENOSCOPY TRANSORAL DIAGNOSTIC EGD/Wong ESOPHAGOGASTRODUODENOSCOPY TRANSORAL DIAGNOSTIC 08/05/2010 EGD ESOPHAGOGASTRODUODENOSCOPY TRANSORAL DIAGNOSTIC 01/06/2012 EGD ESOPHAGOGASTRODUODENOSCOPY TRANSORAL DIAGNOSTIC 06/11/2014 EGD LAPS ABD PRTM&OMENTUM DX W/WO SPEC BR/WA SPX Laparoscopy LAPS SURG CHOLECYSTECTOMY W/CHOLANGIOGRAPHY 01/14/2010 Normal IOC LIG/TRNSXJ FLP TUBE ABDL/VAG APPR UNI/BI Tubal ligation MYRINGOTOMY 10/20/1106/13 Left with tube PAST SURGICAL HISTORY OF 200? chest tube post ? pain procedure PAST SURGICAL HISTORY OF skin lumps removed REMOVAL GALLBLADDER 2009 TOTAL THYROID LOBECTOMY UNI W/WO ISTHMUSECTOMY 12/20/2010 LEFT WITH ISTHMUS VAGINAL HYSTERECTOMY UTERUS 250 GM/< 04/03/1992 Hysterectomy, vaginal PMH, Social history, family history and surgical history reviewed and updated in EMR REVIEW OF SYSTEMS: CONSTITUTIONAL: No fevers, chills, nightsweats, unintended weight loss HEENT: Denies nasal congestion/sinus symptoms, problematic allergy problems. EYES: No diplopia or blurry vision. CARDIOVASCULAR: No chest pain, palpitations, orthopnea, PND, edema. PULM: See HPI GI: No dysphagia/odynophagia, problematic reflux : No recurrent urinary tract infections NEURO: Balance issues, peripheral neuropathy, tremors MUSC-SKEL: Back pain, muscle weakness PSY: No concerns regarding depression, anxiety INTEGUMENTARY: No new skin changes or rashes PHYSICAL EXAMINATION: BP 110/78 Pulse 70 Resp 14 Wt 164 lb (74.4kg) SpO2 97% General Appearance: Appears older than her chronologic age, NAD. Skin: Skin color, texture, turgor normal, no suspicious rashes or lesions. Head: Normocephalic, no masses, lesions, tenderness or abnormalities. Eyes: Sclera, conjunctiva normal. Oropharynx: Edentulous, no oral lesions, dry mucosa. Neck: No JVD, no masses Lungs: Not labored, normal to percussion, diminished breath sounds, no wheezes or crackles. Heart: Regular rate and rhythm, no murmurs or gallops. Extremities: Edema, right greater than left, no clubbing. Neurologic: Alert and oriented, poor balance, lower extremity tremors. Lymph Nodes: No cervical lymphadenopathy and No supraclavicular lymphadenopathy. Assessment/Plan: 1. Severe COPD, GOLD stage 3 -Smoking cessation is paramount -Continue management of COPD with Trelegy Ellipta with as needed albuterol -Would benefit from nebulizer machine. Will send in a order for nebulizer compressor and DuoNeb to use as needed -Assess for oxygen need 2. Cigarette smoker -Current smoker with sequelae of COPD -Smoking cessation strongly encouraged -Recommended use of nicotine lozenges 3. Lung nodules -Requested imaging from [place] -Qualifies for lung cancer screening Julee Barrera MD [facility] [place] documented in this encounter05-06-2024 NoteHNO ID: [id number] Author: JULEE BARRERA MD Service: ? Author Type: Physician Type: Progress Notes Filed: 08/07/2023 11:58 Note Text: . [facility] [place] Note Patient name: Maryse Pisano PCP: Christa Iverson CNP CC: COPD HPI: Maryse iPsano 57 year old female current smoker with PMH significant for GERD, anxiety disorder, history of seizures, history of thyroid cancer, COPD, emphysema by CT of the chest last seen by Dr. Cedeno in 2010. Pulmonary nodules has been following up with [facility] in [place] so I do not have images. With regards to her lung disease she has daily dyspnea on exertion, shortness of breath is worsened by exposure to cold air, changes in the weather and perfumes. She has daily wheezing and cough productive of phlegm. She has frequent awakenings with shortness of breath. Her inhaled therapy was recently changed from Breo Ellipta to Trelegy Ellipta with continued use of albuterol. She uses her albuterol daily which does offer her some relief. She does not currently have a nebulizer machine at home. She used to have a nebulizer in the past but her machine was lost with a move. She is a current smoker, she was able to quit for currently 8 months but cites a recent stress with her as an excuse to start smoking again. She was a former 2 pack a day smoker smoking half a pack a day. She cannot use nicotine gum due to her edentulous state, nicotine patches caused a rash and Chantix caused side effects necessitating discontinuation. DATA: PFT: Review of spirometry shows moderately severe obstruction, mild improvement in his 20s with bronchodilator, moderate reduction in diffusing capacity Labs: Component Ref Range AND Units 5 yr ago WBC 3.4 - 10.6 K/mcL 9.5 RBC 3.7 - 5 M/mcL 4.21 Hemoglobin 11.6 - 15.4 g/dL 12.2 Hematocrit 34.4 - 44.8 % 36.6 MCV 82.6 - 98.9 FL 87.0 MCH 27.9 - 33.9 pg 28.9 MCHC 33.1 - 35.1 g/dL 33.3 RDW 10 - 14.4 % 13.7 Platelets 162 - 402 K/mcL 226 MPV 7 - 10.6 FL 8.3 Absolute Neutrophils 1.2 - 6.9 K/mcL 5.4 Absolute Lymphocytes 1 - 3.7 K/mcL 3.4 Absolute Monocytes 0.1 - 0.6 K/mcL 0.5 Absolute Eosinophils 0 - 0.5 K/mcL 0.2 Absolute Basophils 0 - 0.2 K/mcL 0.0 Segmented Neut % 57.3 Lymphocytes % 35.7 Monocytes % 5.1 Eosinophils % 1.7 Basophils % 0.2 Component Ref Range AND Units 19 yr ago Alpha 1 Antitrypsin 100 - 220 mg/dL 150 Imaging / Diagnostic Studies: Last CT of the chest in 2009 at reported as upper lobe emphysema and several small pulmonary nodules. Accession No: [id number] Performed: Nov 14 2017 4:14PM Examination: CT CHEST W/CONTRAST TYPE: CT CHEST W/CONTRAST EXAM DATE AND TIME: 11/14/2017 4:14 PM EDT INDICATION: 52 years old Female with chronic back and rib pain. COMPARISON: None. TECHNIQUE: CT scan of chest was performed without contrast. FINDINGS: MEDIASTINUM: Visualized airways are patent. Heart [...] lesions. Mild degenerative spondylosis of the midthoracic Spine. IMPRESSION: 1. Moderate emphysematous changes. 2. Several noncalcified pulmonary nodules measuring up to 6 mm. Recommend [address] follow-up. 3. No displaced rib fractures. No acute vertebral body compression fractures. 4. Mild degenerative changes of the midthoracic spine. 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 Dysthymic disorder Depression (non-psychotic) Esophageal reflux Gastroesophageal reflux Esophagitis, unspecified Generalized anxiety disorder Anxiety, Generalized Hearing disorder Irritable bowel syndrome Irritable bowel Other emphysema (HCC) Emphysema PMH - PAST MEDICAL HISTORY OF PULMONARY NODULE PMH - PAST MEDICAL HISTORY OF SEIZURES Thyroid cancer (HCC) ALLERGIES Allergen Reactions Bees Swelling Chantix [Vareniclin* Rash Lice Shampoo [Pyret* Rash States gets blisters on hands and (more content not included)...[facility]05-06-2024 NoteHNO ID: [id number] Author: LORENZA CLEVELAND RPFT Service: ? Author Type: Respiratory Therapist Type: Progress Notes Filed: 08/07/2023 08:42 Note Text: PULM FUNCTION SMARTBLOCK: Provider: Julee Barrera MD Assisting Tech: Lorenza Clveeland RPFT Spirometry w/BD: 1 DL[facility] History of Present illness Narrative * Lorenza Cleveland RPFT - 08/07/2023 8:40 AM EDT PULM FUNCTION SMARTBLOCK: Provider: Julee Barrera MD Assisting Tech: Lorenza Cleveland RPFT Spirometry w/BD: 1 DLCO: 1 documented in this encounter04-18-2024 Note ORIGINAL INDICATION:ORDERING SYSTEM PROVIDED HISTORY: Reason for Exam: Paresthesia of left leg TECHNIQUE: MRI of the lumbar spine was performed without the administration of intravenous contrast, according to standard protocol. COMPARISON: Lumbar spine x-rays 05/01/2023 FINDINGS: ALIGNMENT: Trace retrolisthesis of L3 on L4. Mild upper lumbar rotary VERTEBRAE: No acute/recent fracture or significant chronic height loss. DISCS: Widespread disc desiccation. Mild disc height loss at L3-L4. CONUS MEDULLARIS AND CAUDA EQUINA: The conus medullaris terminates at L1-L2 and is normal. The cauda equina are unremarkable. Perineural cysts of the right L5-S1 and bilateral S1 levels measuring up to 10 mm at the left S1 level. PARAVERTEBRAL SOFT TISSUES: Atrophy of the posterior paraspinous muscles most pronounced in the lower lumbar spine. EVALUATION OF INDIVIDUAL LEVELS DEMONSTRATES: T12-L1: No disc herniation, central canal stenosis or significant foraminal narrowing. L1-2: No disc herniation, central canal stenosis or significant foraminal narrowing. Mild bilateral facet arthrosis is present. L2-3: No disc herniation, central canal stenosis or significant foraminal narrowing. Mild bilateral facet arthrosis. L3-4: Small circumferential disc bulge, small canal, ligamentum flavum hypertrophy and mild facet arthrosis causes bilateral lateral recess narrowing, mild central canal stenosis and mild left without right foraminal narrowing. L4-5: Small diffuse posterior disc bulge with a superimposed left central zone annular fissure, small canal, ligamentum flavum hypertrophy and facet arthrosis causes bilateral lateral recess narrowing, mild central canal stenosis without foraminal narrowing. L5-S1: Small diffuse posterior disc bulge without herniation, central canal, or foraminal stenosis. Perineural cysts are associated with the exiting right L5 and descending bilateral S1 nerve roots. LIMITED EVALUATION OF UPPER SACRUM AND SACROILIAC JOINTS: Mild bilateral degenerative changes. IMPRESSION: 1. Mild multilevel degenerative changes resulting in mild central canal stenosis at L3-L4 and L4-L5. 2. No levels of significant foraminal narrowing. 3. Perineural cysts of the right L5-S1 and bilateral S1 levels. Interpreted by: Vicente Bhatt MD Preliminary Report By: Vicente Bhatt MD Electronically signed By Vicente Bhatt MD Dictated Date: 07/20/2023 2:14:37 PM Prelim Date: 07/20/2023 2:24:04 PM Sign Date: 07/20/2023 2:24:04 PM Ordering Provider: [facility]12-13-2023 Note ORIGINAL EXAMINATION: CT CHEST WITHOUT CONTRAST 03/15/2023 9:30 am HISTORY: ORDERING SYSTEM PROVIDED HISTORY: Reason for Exam: lung nodules. TECHNIQUE: Multiple-row detector helical CT examination of the thorax without IV contrast. Axial, sagittal, and coronal reconstructed images. This exam was performed according to the departmental dose-optimization program which includes automated exposure control, adjustment of the mA and/or kV according to patient size and/or use of iterative reconstruction technique. COMPARISON: Chest CT 08/31/2022 FINDINGS: There is stable irregular nodular right upper lobe densities on it axial images 16 and 19. There is a stable partially calcified 3 mm nodule on axial image 23.. There are stable juxta fissural and juxtapleural nodular densities along the anterior right middle lobe and anteroinferior right upper lobe which have an appearance compatible with intrapulmonary lymph nodes. A few other scattered small nodular densities are also unchanged. The airways are unremarkable. There is stable emphysema. There is no pleural or pericardial effusion. The thoracic aortic caliber is within normal limits. The heart is normal in size. There are no enlarged lymph nodes. The imaged portion of the abdomen is unremarkable. There is no acute bony abnormality. IMPRESSION: Stable lung nodules. Emphysema. Interpreted by: Miguel Angel Jolley Preliminary Report By: Miguel Angle Jolley Electronically signed By Miguel Angel Jolley Dictated Date: 03/15/2023 11:01:25 AM Prelim Date: 03/15/2023 11:09:06 AM Sign Date: 03/15/2023 11:09:06 AM Ordering Provider: [facility]10-03-2023 Note ORIGINAL EXAMINATION: BONE DENSITOMETRY 01/03/2023 1:14 pm TECHNIQUE: A bone density dual x-ray absorptiometry (DEXA) scan was performed of the lumbar spine and left hip. COMPARISON: None. HISTORY: Reason for Exam: Osteoporosis Screening FINDINGS: BMD (g/cm2) Lumbar Spine L1-L4: 0.923. T Score Lumbar Spine L1-L4: -1.1 BMD (g/cm2) Left Femoral Neck: 0.784. T Score Left Femoral Neck: -0.6 BMD (g/cm2) Left Hip: 0.934. T Score Left Hip: -0.1 FRAX: 10 year fracture risk assessment Major osteoporotic fracture: 5.3% Hip fracture: 0.3% IMPRESSION: Osteopenia. I have personally reviewed the images of this examination and agree with the resident's findings and interpretation. Interpreted by: Selene Ng MD Preliminary Report By: Robi Dimas Electronically signed By Selene Ng MD Dictated Date: 01/03/2023 2:46:10 PM Prelim Date: 01/03/2023 3:01:57 PM Sign Date: 01/03/2023 3:01:57 PM Ordering Provider: [facility]09-28-2023 Note. MICRO - Microbiology PROCEDURE: Stool Culture [^1 *1] SOURCE: Stool BODY SITE: COLLECTED DATE/TIME: 12/26/2022 10:47 EDT RECEIVED DATE/TIME: 12/26/2022 15:03 EDT START DATE/TIME: 12/26/2022 15:03 EDT FREE TEXT SOURCE: FINAL REPORTS Final Report [] Verified Date/Time/Personnel: 12/29/2022 11:52 EDT Normal stool manuel present. Salmonella: Negative Shigella: Negative Campylobacter: Negative PRELIMINARY REPORTS Preliminary Report [] Verified Date/Time/Personnel: 12/28/2022 14:36 EDT Normal stool manuel present. Negative for stool pathogens at 48 hours. Final report to follow. Interpretive Data ^1: Culture Stool Requests for alternative pathogens including Yersinia, E. coli 0157, C. difficile toxin, Rotavirus, Giardia and parasites require specific requests. Performing Locations *1: This test was performed at: [facility], [address] [place] [address], [facility] , [facility] ([place])12-28-2022 NoteBorderline elevated. Re-evaluation in 4-6 weeks is recommended if clinically indicated.Formerly [facility] ([place])Comment on above:Result Comment: On August 23, 2022, [employer] implemented a new fecal calprotectinmethod, the [employer] Liaison Calprotectin assay. For assistance with interpretation of results in patients undergoing serial monitoring, contact Client Services at [phone] or [phone] to discuss options, preferably within 7 days of issuing this report. Interpretation: <50.0 ug/g: Normal 50.0 ug/g - 120.0 ug/g: Borderline elevated. Re-evaluation in 4-6 weeks is recommended if clinically indicated. >120.0 ug/g: Elevated Performed By: [facility] [address] [place] [address] Natural Resource Economist: Beto Walsh III, M.D. JENNIFER#: [id number] By: #### VIDH, FT4, CMP, TSH, LIPID, GFR #### [address] [id number] Note. MICRO - Microbiology PROCEDURE: Giardia Antigen [*1] SOURCE: Stool BODY SITE: COLLECTED DATE/TIME: 12/26/2022 10:47 EDT RECEIVED DATE/TIME: 12/26/2022 15:03 EDT START DATE/TIME: 12/26/2022 15:03 EDT FREE TEXT SOURCE: FINAL REPORTS Final Report [] Verified Date/Time/Personnel: 12/27/2022 14:43 EDT Giardia Antigen by EIA: Negative A single diagnostic assay should not be used as the basis for forming a clinical conclusion. Giardia antigens are shed very sporadically. It is recommended that two separate stools be tested for Giardia antigen. If both are negative, then it is less likely that Giardia is present. Results should be supported by correlation with the patient symptoms and the overall clinical picture. Performing Locations *1: This test was performed at: [address] ([facility]12-27-2022 Note. MICRO - Microbiology PROCEDURE: Shiga Toxins 1 and 2 [[id number]: [id number] ^1 *1] SOURCE: Stool BODY SITE: COLLECTED DATE/TIME: 12/26/2022 15:03 EDT RECEIVED DATE/TIME: 12/26/2022 15:03 EDT START DATE/TIME: 12/26/2022 15:03 EDT FREE TEXT SOURCE: FINAL REPORTS Final Report [] Verified Date/Time/Personnel: 12/27/2022 12:45 EDT Absence of Shiga toxin 1 Absence of Shiga toxin 2 Order Comments O1: Shiga Toxins 1 and 2 ordered by lab as part of Culture Stool Panel Interpretive Data ^1: Shiga Toxins 1 and 2 Testing performed by immunochromatography. Performing Locations *1: This test was performed at: [address])12-26-2022 Note. MICRO - Microbiology PROCEDURE: Fecal Leukocytes [*1] SOURCE: Stool BODY SITE: COLLECTED DATE/TIME: 12/26/2022 10:46 EDT RECEIVED DATE/TIME: 12/26/2022 15:03 EDT START DATE/TIME: 12/26/2022 15:03 EDT FREE TEXT SOURCE: FINAL REPORTS Final Report [] Verified Date/Time/Personnel: 12/26/2022 19:01 EDT Microscopy: Fecal Leukocytes Absent From our data, approximately 50% of enteroinvasive bacterial pathogens will not be associated with stool WBC's. Performing Locations *1: This test was performed at: [facility], [address] [place] [address], [facility]- , [facility])12-26-2022 NoteCalprotectin InterpBorderline elevated. Re- evaluation in 4-6 weeks is recommended if clinically indicated.1 *ABN* (12/26/22 10:46 AM)AO Sendouts SSComment on above:Result Comment: On August 23, 2022, [facility] implemented a new fecal calprotectinmethod, the DiaS[employer] Liaison Calprotectin assay. For assistance with interpretation of results in patients undergoing serial monitoring, contact Client Services at [phone] or [phone] to discuss options, preferably within 7 days of issuing this report. Interpretation: <50.0 ug/g: Normal 50.0 ug/g - 120.0 ug/g: Borderline elevated. Re-evaluation in 4-6 weeks is recommended if clinically indicated. >120.0 ug/g: Elevated Performed By: [facility] [address] [place] [address] Natural Resource Economist: Beto Walsh III, M.D. [facility]#: [id number] Note. MICRO - Microbiology PROCEDURE: Stool Culture [^1 *1] SOURCE: Stool BODY SITE: COLLECTED DATE/TIME: 12/20/2022 16:35 EDT RECEIVED DATE/TIME: 12/21/2022 15:18 EDT START DATE/TIME: 12/21/2022 15:19 EDT FREE TEXT SOURCE: FINAL REPORTS Final Report [] Verified Date/Time/Personnel: 12/24/2022 10:36 EDT Normal stool manuel present. Salmonella: Negative Shigella: Negative Campylobacter: Negative PRELIMINARY REPORTS Preliminary Report [] Verified Date/Time/Personnel: 12/23/2022 12:40 EDT Normal stool manuel present. Negative for stool pathogens at 48 hours. Final report to follow. Interpretive Data ^1: Culture Stool Requests for alternative pathogens including Yersinia, E. coli 0157, C. difficile toxin, Rotavirus, Giardia and parasites require specific requests. Performing Locations *1: This test was performed at: [address], [address] [place], [place] [address]12-22-2022 Note. MICRO - Microbiology PROCEDURE: Shiga Toxins 1 and 2 [[id number]: [id number] ^1 *1] SOURCE: Stool BODY SITE: COLLECTED DATE/TIME: 12/21/2022 15:19 EDT RECEIVED DATE/TIME: 12/21/2022 15:19 EDT START DATE/TIME: 12/21/2022 15:19 EDT FREE TEXT SOURCE: FINAL REPORTS Final Report [] Verified Date/Time/Personnel: 12/22/2022 13:01 EDT Absence of Shiga toxin 1 Absence of Shiga toxin 2 Order Comments O1: Shiga Toxins 1 and 2 ordered by lab as part of Culture Stool Panel Interpretive Data ^1: Shiga Toxins 1 and 2 Testing performed by immunochromatography. Performing Locations *1: This test was performed at: [address], [address] [place], [place] [address]12-21-2022 Note. MICRO - Microbiology PROCEDURE: Fecal Leukocytes [*1] SOURCE: Stool BODY SITE: COLLECTED DATE/TIME: 12/20/2022 16:35 EDT RECEIVED DATE/TIME: 12/21/2022 15:18 EDT START DATE/TIME: 12/21/2022 15:18 EDT FREE TEXT SOURCE: FINAL REPORTS Final Report [] Verified Date/Time/Personnel: 12/21/2022 17:15 EDT Microscopy: Fecal Leukocytes Absent From our data, approximately 50% of enteroinvasive bacterial pathogens will not be associated with stool WBC's. Performing Locations *1: This test was performed at: [facility], [address] [place] [address], [id number] , [facility] ([place])11-16-2022 Note ORIGINAL EXAMINATION: SOFT TISSUE ULTRASOUND 11/16/2022 1:22 pm COMPARISON: None. HISTORY: ORDERING SYSTEM PROVIDED HISTORY: Reason for Exam: right lower abd pain, questionable mass, history of appendectomy 2004, pain starting at the umbilicus extending to the right side FINDINGS: Targeted ultrasound of umbilical region and right lower quadrant in the region of pain indicated by patient performed. Evaluation is compromised by artifact from large body habitus. No obvious soft tissue lesions seen in the region of evaluation. No obvious herniation visualized on static or Valsalva maneuver scans. IMPRESSION: Negative ultrasound. If there is continued concern, CT of the abdomen and pelvis with contrast can be considered. I have personally reviewed the images of this examination and agree with the resident's findings and interpretation. Interpreted by: Josh Nichols MD Preliminary Report By: Bhaskar Oh Electronically signed By Josh Nichols MD Dictated Date: 11/16/2022 1:25:18 PM Prelim Date: 11/16/2022 1:34:56 PM Sign Date: 11/16/2022 1:34:56 PM Ordering Provider: [facility]06-27-2023 Hospital Discharge instructions Patient Education 09/27/2022 13:04:43 3- Heart Cath/PCI radial (01/2018) (CUSTOM) HEART CATHETERIZATION/PCI (radial) Discharge Instructions DIET Drink plenty of fluids for the next 48 hours to help your kidneys flush the heart cath dye out of your system ACTIVITY For the next 48 hours: Do not deep bend the wrist Do not lift, push, or pull anything over 5 pounds Do not use the hand/arm to support your weight when rising from a chair or bed Do not drive For the next 7 days: Do not submerse your procedure site in water Do not swim, wash dishes, or take tub baths You may write, eat, type, and shower WOUND CARE Keep dressing on for 24 hours, wash, dry, and place Band-Aid. Keep a Band-Aid on your procedure site for the next 3-4 days Change the Band-Aid daily or if it gets wet/soiled AFTER YOU GO HOME, CALL YOUR DOCTOR FOR: Any increase in bruising or tenderness from the procedure site Any redness, pus, or other signs of infection at the site A temperature above 100.5 Severe pain at the site DIAL 911 AND RETURN TO THE HOSPITAL FOR: Any bleeding from the procedure site. The site may be bruised or tender, but it should not be bleeding at any time. If your site begins to bleed, hold firm pressure on it and dial 911 to return to the hospital Any increase in swelling at the procedure site. An increase in swelling could mean the area is bleeding under the skin. Hold firm pressure to the site and dial 911 to return to the hospital Document Released: 03/20/2006 Document Revised: 03/06/2013 Document Reviewed: 03/21/2014 ExitCare Patient Information 2015 [employer]. This information is not intended to replace advicegiven to you by your health care provider. Make sure you discuss any questions you have with your health care provider. 09/27/2022 13:04:19 Moderate Conscious Sedation, Adult, Care After Moderate Conscious Sedation, Adult, Care After These instructions provide you with information about caring for yourself after your procedure. Your health care provider may also give you more specific instructions. Your treatment has been plannedaccording to current medical practices, but problems sometimes occur. Call your health care provider if you have any problems or questions after your procedure. What can I expect after the procedure? After your procedure, it is common: To feel sleepy for several hours. To feel clumsy and have poor balance for several hours. To have poor judgment for several hours. To vomit if you eat too soon. Follow these instructions at home: For at least 24 hours after the procedure: Do not: ?Participate in activities where you could fall or become injured. ?Drive. ?Use heavy machinery. ?Drink alcohol. ?Take sleeping pills or medicines that cause drowsiness. ?Make important decisions or sign legal documents. ?Take care of children on your own. Rest. Eating and drinking Follow the diet recommended by your health care provider. If you vomit: ?Drink water, juice, or soup when you can drink without vomiting. ?Make sure you have little or no nausea before eating solid foods. General instructions Have a responsible adult stay with you until you are awake and alert. Take [id number]-[id number] and prescription medicines only as told by your health care provider. If you smoke, do not smoke without supervision. Keep all follow-up visits as told by your health care provider. This is important. Contact a health care provider if: You keep feeling nauseous or you keep vomiting. You feel light-headed. You develop a rash. You have a fever. Get help right away if: You have trouble breathing. This information is not intended to replace advice given to you by your health care provider. Make sure you discuss any questions you have with your health care provider. Document Released: 01/08/2014 Document Revised: 03/02/2018 Document Reviewed: 07/09/2016 BCKSTGR Patient Education 2020 Health: [place]. Follow Up Care 09/12/2022 10:09:42 With:JIMI DEMPSEY MD Address: [address] [place], [place] [address] [place] [address]- When:10/24/2022 10:00:00 Comments:THIS APPOINTMENT WILL BE WITH SHARAN EMERY [facility] 06-27-2023 Summary of episode note Discharge Instructions Thank you for allowing [facility] to assist you with your healthcare needs. The following is importantdischarge information regarding your hospital visit. Your Care Team CHRISTA IVERSON What to do next Scheduled Follow-Up Appointments Appointment Type When With Where Contact InformationPC OV 10/11/2022 09:00 AM EDT CHRISTA IVERSON [facility] CV OV 10/24/2022 10:00 AM EDT COLLIN WRAY [facility] Follow Up Appointments Follow Up with JIMI DEMPSEY MD When 10/24/2022 10:00 AM EDT Why: THIS APPOINTMENT WILL BE WITH SHARAN EMERY Where: [address] [place], [place] [address] [place] [address]- The Following Activity and Diet Have Been Ordered for You Discharge Activity - Ordered -- Lifting Restricted less than 5 pounds, no heavy lifting for 5 days in right arm, 09/27/22 12:36:00 EDT Discharge Diet - Ordered -- No changes were made to your diet during your hospital stay. Please resume your pre hospitalization diet on discharge., 09/27/22 12:36:00 EDT Allergies Bee Stings Chantix (Blisters) Latex (rash) Lodine (shortness of breath) Tape, Paper (Rash) Ultram (stomach upset) Vioxx (shortness of breath) Wellbutrin (seizures) amitriptyline (vomiting) aspirin (stomach upset) cortisone (Rash) gabapentin (head feels funny) ibuprofen (stomach upset) naproxen (SICK) penicillin (Hives) predniSONE (Vomiting) Medications Please ask your primary doctor or pharmacist before taking any other medication not listed, including over the counter drugs, herbal medications, vitamins and or supplements as they may interact withyour home medications. What How Much When Instructions Last Dose Unchanged albuterol (Ventolin HFA MDI (90 mcg/ inh) inhalation aerosol) 2 puff(s) by inhalation Every 6 hours as needed for as needed for wheezing Unchanged cimetidine (cimetidine 200 mg oral tablet) 1 tab(s) by mouth Once a day Duration: 90 Days Unchanged citalopram (citalopram 20 mg oral tablet) 1 tab(s) by mouth Once a day Duration: 30 Days Unchanged DME (DME MISCellaneous) See instructions 2 pairs of knee-high compression stockings with closed toe. Pressure 20-30 Diagnosis edema. Unchanged DME (DME MISCellaneous) See instructions 2 pairs compression stocking. Dx venous unsufficiency I87.2 Unchanged DME (DME MISCellaneous) See instructions wheeled walker. Dx:chronic back pain Unchanged hydrOXYzine (hydrOXYzine hydrochloride 25 mg oral tablet) 1 tab(s) by mouth Four (4) times a day as needed for as needed for anxiety Duration: 30 Days Unchanged lactobacillus acidophilus (Acidophilus oral capsule) 1 cap by mouth Once a day Unchanged levothyroxine (levothyroxine 50 mcg (0.05 mg) oral tablet) TAKE 1 TABLET BY MOUTH ONCE DAILY Unchanged lidocaine topical (lidocaine 5% topical patch) 2 patch(es) Transdermal Every day Duration: 30 Days Unchanged methocarbamol (methocarbamol 500 mg oral tablet) 1 tab(s) by mouth take 1 tablet by mouth UP TO three times a day if needed for SPASM Unchanged metoprolol (metoprolol succinate 25 mg oral TABLET extended release) 1 tab(s) by mouth Once a day Do not crush or chew (controlled release) Unchanged omeprazole (omeprazole 40 mg oral delayed release capsule) 1 cap by mouth Once a day Please take this list to your next doctor s visit. Bring all medications you take, including over the counter medications, herbals and other supplements with you to your doctor s visit. Patients and families are reminded to discard old lists and to update any records with all medication providers or retail pharmacies. Education Materials HEART CATHETERIZATION/PCI (radial) Discharge Instructions DIET Drink plenty of fluids for the next 48 hours to help your kidneys flush the heart cath dye out of your system ACTIVITY For the next 48 hours: Do not deep bend the wrist Do not lift, push, or pull anything over 5 pounds Do not use the hand/arm to support your weight when rising from a chair or bed Do not drive For the next 7 days: Do not submerse your procedure site in water Do not swim, wash dishes, or take tub baths You may write, eat, type, and shower WOUND CARE Keep dressing on for 24 hours, wash, dry, and place Band-Aid. Keep a Band-Aid on your procedure site for the next 3-4 days Change the Band-Aid daily or if it gets wet/soiled AFTER YOU GO HOME, CALL YOUR DOCTOR FOR: Any increase in bruising or tenderness from the procedure site Any redness, pus, or other signs of infection at the site A temperature above 100.5 Severe pain at the site DIAL 911 AND RETURN TO THE HOSPITAL FOR: Any bleeding from the procedure site. The site may be bruised or tender, but it should not be bleeding at any time. If your site begins to bleed, hold firm pressure on it and dial 911 to return to the hospital Any increase in swelling at the procedure site. An increase in swelling could mean the area is bleeding under the skin. Hold firm pressure to the site and dial 911 to return to the hospital Document Released: 03/20/2006 Document Revised: 03/06/2013 Document Reviewed: 03/21/2014 [facility] [place] Patient Information 2015 ExitCare[employer]. This information is not intended to replace advicegiven to you by your health care provider. Make sure you discuss any questions you have with your health care provider. Moderate Conscious Sedation, Adult, Care After These instructions provide you with information about caring for yourself after your procedure. Your health care provider may also give you more specific instructions. Your treatment has been plannedaccording to current medical practices, but problems sometimes occur. Call your health care provider if you have any problems or questions after your procedure. What can I expect after the procedure? After your procedure, it is common: To feel sleepy for several hours. To feel clumsy and have poor balance for several hours. To have poor judgment for several hours. To vomit if you eat too soon. Follow these instructions at home: For at least 24 hours after the procedure: Do not: ? Participate in activities where you could fall or become injured. ? Drive. ? Use heavy machinery. ? Drink alcohol. ? Take sleeping pills or medicines that cause drowsiness. ? Make important decisions or sign legal documents. ? Take care of children on your own. Rest. Eating and drinking Follow the diet recommended by your health care provider. If you vomit: ? Drink water, juice, or soup when you can drink without vomiting. ? Make sure you have little or no nausea before eating solid foods. General instructions Have a responsible adult stay with you until you are awake and alert. Take mpba-bla-wzephbb and prescription medicines only as told by your health care provider. If you smoke, do not smoke without supervision. Keep all follow-up visits as told by your health care provider. This is important. Contact a health care provider if: You keep feeling nauseous or you keep vomiting. You feel light-headed. You develop a rash. You have a fever. Get help right away if: You have trouble breathing. This information is not intended to replace advice given to you by your health care provider. Make sure you discuss any questions you have with your health care provider. Document Released: 01/08/2014 Document Revised: 03/02/2018 Document Reviewed: 07/09/2016 BCKSTGR Patient Education 2020 [employer] Inc. Additional Information VACCINATE! IT SAVES LIVES! Members of the community who have not yet received the COVID-19 vaccine and would like to receive it can visit one of [facility] vaccine clinics. There are many vaccine clinic locations within the State. For locations and available times, please visit https://gettheshot.coronavirus.[place].gov/. It is important to note that some COVID mobile vaccine clinics are held outdoors and may be canceled in rainy or stormy conditions. To learn more about pediatric vaccinations (ages 5-11), we invite you to visit the [facility] webpage. https://www.akExpandlys.org/pages/4591-Hrgbt-Ulyoemxyrid-Jsontflicl-Amoco-Tyv stions.htmlTo learn more about the COVID-19 vaccine, we invite you to visit the CDC website for a list of frequently asked questions.https://www.cdc.gov/coronavirus/2019-ncov/vaccines/faq.html [employer] Patient Portal Access Instructions: Stay connected with your healthcare team and access your personal medical information anytime with the [employer] Patient Portal. Please follow the directions below to create your [employer] account: 1.Access the email account you provided upon registration to the hospital/physician office.2.Look for an invitation email from [facility].3.Open the email and access the invitation link: AcceptInvitation to [facility]..4.Fill in the required rivera to create your account. To access your account, visit [employer]. Click the blue button labeled Access Patient Portal and then log in with the username and password that you created in the steps above. You will be able to view your test results, lab results, a summary of your visits, upcoming appointments and more. There is also a convenient messaging option where you can send secure messages to your p rovider. In addition, you will have the ability to download any documents or summaries to your computer and/or send the information securely to a physician. Remember that your healthcare information is confidential, so carefully consider who you will allowto register on the [employer] Patient Portal for access to your information. You can also access the [facility] Patient Portal on the [employer] yokasta. Simply click on Patient Portal and then log into your account. If you would like to receive a full copy of your medical records, please contact the [facility] Medical Records Department by calling [phone], Monday through Monday between 8 a.m. and 4:30 p.m. HOW TO SAFELY DISPOSE OF PRESCRIPTION MEDICATIONS Please use one of the following methods to safely dispose of your unused medications. 1.Use a drug disposal kit: the drug disposal pouch allows you to safely discard your old and unuseddrugs. Ask your nurse to give you one when you are discharged.2.Visit a local take-back location: Many local pharmacies and police departments have programs that collect old and unwanted prescriptiondrugs. Call your local pharmacy or go to http://[employer]/1K0Tk8m to find one close to you.3.Make use of household items: Use cat litter or old coffee grounds to dispose medications if other options arenot available. Mix your drugs with these household products, seal them in an airtight container andthrow it into the garbage. Call [facility]: [phone] to be sure your drugs can be disposed of in this way. Some medicines may require a different approach.4.Never flush your medications down the toilet. IF YOU HAVE BEEN PRESCRIBED AN OPIOID FOR PAIN If you have been prescribed an opioid (such as hydrocodone, oxycodone or morphine), it is critical to understand the possible side effects and risks of opioid pain medications. Even when taken as directed, opioids can have several side effects including: Tolerance, meaning you might need to take more of a medication for the same pain relief. Nausea, vomiting and/or constipation. Sleepiness, dizziness, dry mouth, confusion, depression or itching. Physical dependence, meaning you have withdrawal symptoms when a medication is stopped, can develop within a few days. KNOW YOUR RESPONSIBILITIES It is important to know exactly how much and how often to take the opioid pain medications you are prescribed. Never take opioids in higher amounts or more often than prescribed. Do not combine opioids with alcohol or other drugs that cause drowsiness, such as benzodiazepines, also known as benzos, including diazepam and alprazolam, muscle relaxants or sleep aids. Never sell or share prescription opioids. This is illegal. Store opioids in a secure place and out of reach of others (including children, family, friends and visitors). The last page of this document has been signed and retained as a CHART COPY. Signatures Patient Education Materials 3- Heart Cath/PCI radial (01/2018) (CUSTOM) Moderate Conscious Sedation, Adult, Care After Medication Leaflets My discharge plan and instructions have been reviewed and explained to me and I,TERRY, MARYSE Dhruv understand my current condition and have read and understand these discharge instructions. I have received a written copy of the plan/instructions. If I have questions, I am aware that I should contact my doctor. 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 Left heart cath notable for normal coronary artery disease. Intervention was performed. Patient tolerated procedure well without complication. No changes in patient's medications. Will follow-up with cardiology as an outpatient. Allergies Bee Stings Chantix (Blisters) Latex (rash) Lodine (shortness of breath) Tape, Paper (Rash) Ultram (stomach upset) Vioxx (shortness of breath) Wellbutrin (seizures) amitriptyline (vomiting) aspirin (stomach upset) cortisone (Rash) gabapentin (head feels funny) ibuprofen (stomach upset) naproxen (SICK) penicillin (Hives) predniSONE (Vomiting) Consults No qualifying data available. Objective Vitals and Measurements T: 36.2 C (Temporal Artery) HR: 74 RR: 16 BP: 139/83 SpO2: 95% HT: 157.5 cm WT: 72.6 kg BMI: 29.27 BMI: 29.27 Weight Dosing Weight: 72.6 kg (09/27/22) Code Status No qualifying data available. Medications Unchanged albuterol (Ventolin HFA MDI (90 mcg/inh) inhalation aerosol)2 puff(s) by inhalation every 6 hours as needed as needed for wheezing. Refills: 0. cimetidine (cimetidine 200 mg oral tablet)1 tab(s) by mouth once a day for 90 Days. Refills: 3. citalopram (citalopram 20 mg oral tablet)1 tab(s) by mouth once a day for 30 Days. Refills: 5. DME (DME MISCellaneous)2 pairs of knee-high compression stockings with closed toe. Pressure 20-30 Diagnosis edema.. Refills: 0. DME (DME MISCellaneous)2 pairs compression stocking. 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 Refills: 0. DME (DME MISCellaneous)wheeled walker. Dx:chronic back pain. Refills: 0. hydrOXYzine (hydrOXYzine hydrochloride 25 mg oral tablet)1 tab(s) by mouth four (4) times a day as needed as needed for anxiety for 30 Days. Refills: 5. lactobacillus acidophilus (Acidophilus oral capsule)1 cap by mouth once a day. Refills: 11. levothyroxine (levothyroxine 50 mcg (0.05 mg) oral tablet)TAKE 1 TABLET BY MOUTH ONCE DAILY. lidocaine topical (lidocaine 5% topical patch)2 patch(es) Transdermal every day for 30 Days. Refills: 0. methocarbamol (methocarbamol 500 mg oral tablet)1 tab(s) by mouth. take 1 tablet by mouth UP TO three times a day if needed for SPASM. metoprolol (metoprolol succinate 25 mg oral TABLET extended release)1 tab(s) by mouth once a day. Do not crush or chew (controlled release). Refills: 2. omeprazole (omeprazole 40 mg oral delayed release capsule)1 cap by mouth once a day. Follow Up Follow Up with JIMI DEMPSEY MD When 10/24/2022 10:00 AM EDT Why: THIS APPOINTMENT WILL BE WITH SHARAN EMERY Where: [address] [address] [facility] [place] [address]- Follow Up Appointments No qualifying data available. Follow Up Labs/Studies Discharge Labs No Follow-up Labs Discharge Studies No Follow-up Studies Discharge Diet Discharge Diet - Ordered -- No changes were made to your diet during your hospital stay. Please resume your pre hospitalization diet on discharge., 09/27/22 12:36:00 EDT Discharge Activity Discharge Activity - Ordered -- Lifting Restricted less than 5 pounds, no heavy lifting for 5 days in right arm, 09/27/22 12:36:00 EDT Readmission Risk/Palliative Score No qualifying data available. Digitally Signed by JOSE GUTIÉRREZ MD on 09/27/2022 12:38 PM Digitally Signed by JIMI DEMPSEY MD [id number] Jurado [facility] May 24, 2022 7:45pm Note Date/Time May 24, 2022 6:09pm [facility] Medical Records Department [address] [place] [address] Emergency Department Summary 05/24/22 MR#: [id number] Acct: [id number] Name: MARYSE PISANO Rep #:[id number] : 1965 56 From: Renaldo Jurado MD PCP: THOMAS FraustoC Status:REG E R Location: ED HPI History of Present Illness Chief Complaint: Chest Pain Narrative Narrative: 56-year-old female past medical history of COPD, anxiety, is a smoker presents with chest pain over the last 2 days. She states yesterday her pain was intermittent for hours. It was described as sharp and stabbing on the left sideradiating towards her back and scapula, and down her left arm. She describes numbness and tingling of her left arm. No fevers or chills, no cough or shortness of breath. No diaphoresis. She states she is nauseated but has not vomited. While it was intermittent yesterday, its been more consistent today and constant. She woke up with the chest pain. She states it really hurts. She denies any leg swelling. Last stress test was approximately 3 years ago. She called her primary care provider who told her to come to the emergency department for evaluation of her left-sided chest and back pain. PFSH PFSH Home Medications levothyroxine 75 mcg tablet 50 mcg PO DAILY 01/08/15 [History Last Taken 05/04/20] esomeprazole magnesium 20 mg capsule,delayed release (Nexium) 20 mg PO DAILY 04/09/20 [History Last Taken Unknown] lactobacillus combination no.9 4 billion cell capsule (Adult 50 Plus Probiotic) 4,000 mmu cells PO DAILY 04/09/20 [History Last Taken Unknown] albuterol sulfate 90 mcg/actuation aerosol inhaler 1 puff inhalation PRN PRN Asthma 04/29/20 [History Last Taken 05/04/20] cimetidine 200 mg tablet 200 mg PO DAILY 04/29/20 [History Last Taken 05/04/20] mometasone-formoterol HFA 100 mcg-5 mcg/actuation aerosol inhaler 100 mcg inhalation PRN PRN Asthma 04/29/20 [History Last Taken Unknown] citalopram 20 mg tablet 20 mg PO DAILY 05/24/22 [History Last Taken Unknown] hydroxyzine HCl 10 mg tablet 20 mg PO Q6H PRN PRN Anxiety 05/24/22 [History Last Taken Unknown] methocarbamol 500 mg tablet 500 mg PO TID PRN PRN Spasms 05/24/22 [History Last Taken Unknown] Allergy/AdvReac Type Severity Reaction Status Date / Time amitriptyline HCl Allergy Nausea Verified 05/24/22 17:53 [From Elavil] aspirin [ASA] Allergy Nausea Verified 05/24/22 17:53 bacitracin Allergy Rash Verified 05/24/22 17:53 [From Neosporin ([id number])] bupropion HCl Allergy Other Verified 05/24/22 17:53 [From Wellbutrin] etodolac [From Lodine] Allergy Unknown Verified 05/24/22 17:53 ibuprofen Allergy Unknown Verified 05/24/22 17:53 neomycin Allergy Rash Verified 05/24/22 17:53 [From Neosporin ([id number])] Penicillins [PCN] Allergy Hives Verified 05/24/22 17:53 poison elis extract Allergy Swelling Verified 05/24/22 17:53 poison oak extract Allergy Swelling Verified 05/24/22 17:53 polymyxin B Allergy Rash Verified 05/24/22 17:53 [From Neosporin ([id number])] rofecoxib [From Vioxx] Allergy Other Verified 05/24/22 17:53 varenicline [From Chantix] Allergy Rash Verified 05/24/22 17:53 venom-honey bee Allergy Swelling Verified 05/24/22 17:53 [bee venom (honey bee)] acetaminophen [From Vicodin] AdvReac Nausea/Vom/ Verified 05/24/22 17:53 Diarrhea adhesive tape AdvReac NEEDS Verified 05/24/22 17:53 FOLLOW-UP gabapentin AdvReac Other Verified 05/24/22 17:53 hydrocodone [From Vicodin] AdvReac Nausea/Vom/ Verified 05/24/22 17:53 Diarrhea Social History Smoking Status: Current every day smoker tobacco type: cigarettes ROS ROS ED ROS Narrative Constitutional: No fever, no chills. HEENT: No sore throat. No neck pain. No loss of vision. No rhinorrhea. Cardiovascular: Positive left-sided chest pain with radiation to back and down left arm.. No palpitations. No pedal edema. Respiratory: No cough, no shortness of breath. Abdominal: No abdominal pain. No nausea. No vomiting. Genitourinary: No dysuria. No hematuria. Musculoskeletal: No myalgias. No arthralgias. Neurologic: No headaches. No dizziness. No lightheadedness. Paresthesias of left arm. Skin: No rash. No change in color. Psychiatric: No depression. No anxiety. EXAM Physical Exam Narrative Exam Narrative: Afebrile. Vital signs noted. HEENT: Normocephalic. Atraumatic. PERRL, EOMI. Neck soft and supple. No pointtenderness or step off. Cardiovascular: Regular rate and rhythm. No murmurs, rubs, or gallops appreciated. Respiratory: No tachypnea. Lungs clear to auscultation bilaterally. Gastrointestinal: Abdomen soft, nontender, with normoactive bowel sounds. No rebound or guarding. Neurological: Awake. Alert. Nonfocal, nonlateralizing. Skin: No rash. Normal color. No pallor. Musculoskeletal: No pedal edema. Full range of motion extremities. Const Vital Signs: 05/24/22 17:52 05/24/22 18:00 05/24/22 18:01 Temperature 97.5 F L Temperature Source Temporal Pulse Rate 77 74 Respiratory Rate 16 Respiratory Pattern Normal Blood Pressure 152/77 H 146/87 H Blood Pressure Mean 102 106 Pulse Ox 98 Oxygen Delivery Method Room Air Room Air 05/24/22 18:21 Temperature Temperature Source Pulse Rate Respiratory Rate Respiratory Pattern Blood Pressure Blood Pressure Mean Pulse Ox Oxygen Delivery Method Room Air Heart Score History: Moderately Suspicious ECG: Normal Age: >45 - <65 years Risk Factors: 1 or 2 Risk Factors Score: 3 MDM MDM MDM Narrative Medical decision making narrative: In the differential diagnosis is acute coronary syndrome/STEMI versus non- STEMI,and aortic dissection given her back pain radiating to her scapula. She does have risk factors including smoking and her age. Chest pain work-up was pursued, however she has an allergy to aspirin which is more nausea. This was held regardless. EKG was obtained to rule out STEMI and interpreted by myself which does demonstrate normal sinus rhythm at 76 bpm without ectopy or acute ST changes. No STEMI on my interpretation. With concern for aortic dissection, I do feel that imaging of CTA of the chest would be helpful, even to rule out pulmonary embolism. EKG was obtained and interpreted by myself which demonstrates normal sinus rhythm at 76 bpm without ectopy or acute ST changes. No STEMI. I reviewed her laboratory work and she has a normal white count of 7.6, hemoglobin normal at 13.4, hematocrit 40.9. Platelet count normal at 231. In review of her basic metabolic panel she has a normal sodium of 140, potassium of 3.6 and normal, chloride slightly elevated at 109. Normal BUN of 11 and normal creatinine of 0.69. Glucose is appropriately elevated at 111 with a normal anion gap of 7. Her high-sensitivity troponin is 4. This is greater than a 6-hour troponin as she has been having constant chest pain all day on the left side. I reviewed the radiology report on her CTA. There is no evidence of pulmonary embolism or arterial dissection. There was noted pulmonary nodules. She was told of the abnormal CT finding and I strongly suggested follow-up with her primary care physician as an outpatient regarding these. Smoking cessation was also discussed. At this point in time, I do feel she can be discharged safely home with follow-up. Return instructions to the emergency department were reviewed. Disposition is discharged home in stable condition. Lab Data Attestation: I reviewed the patient's lab results. Labs: Laboratory Results - last 24 hr 05/24/22 05/24/22 18:10 18:10 WBC 7.6 RBC 4.40 Hgb 13.4 Hct 40.9 MCV 93.0 MCH 30.5 MCHC 32.8 RDW Std Deviation 41.0 RDW Coeff of Jake 11.9 Plt Count 231 MPV 9.6 Immature Gran % (Auto) 0.300 Neut % (Auto) 47.0 Lymph % (Auto) 41.4 H [place] % (Auto) 7.5 Eos % (Auto) 3.4 Baso % (Auto) 0.4 Absolute Neuts (auto) 3.6 Absolute Lymphs (auto) 3.13 Nucleated RBC % 0 Sodium 140 Potassium 3.6 Chloride 109 H Carbon Dioxide 24.0 Anion Gap 7 BUN 11 Creatinine 0.69 Estim Creat Clear Calc 73.72 Est GFR (MDRD) Af Amer 113 Est GFR (MDRD) Non-Af 93 BUN/Creatinine Ratio 15.9 Glucose 111 H Calcium 9.1 Troponin I High Sens 4 Radiography Diagnostic Testing: Clinical Impression(s) from Imaging Studies Chest CTA 05/24/22 18:04 IMPRESSION: CTA chest examination, without a demonstrated pulmonary embolism or arterial dissection. Emphysema. Multiple pulmonary nodules are nonspecific and could be inflammatory, infectious, or neoplastic. Recommend follow-up in 3-6 months. Electronically Signed: Joel Vang MD at 19:26 EST , Discharge Plan Triage Chief Complaint: Chest Pain ED Provider: Renaldo Jurado Dx/Rx/DC Orders Clinical Impression: Chest pain, Tobacco abuse, Pulmonary nodules Instructions: ED Chest Pain, Uncertain Cause, ED How to Quit Smoking Prescriptions: No Action esomeprazole magnesium [Nexium] 20 mg capsule,delayed release(DR/EC) 20 mg PO DAILY Adult 50 Plus Probiotic 4 billion cell capsule 4,000 mmu cells PO DAILY Rx Instructions: administer with a meal levothyroxine 75 MCG tablet 50 mcg PO DAILY cimetidine 200 MG tablet 200 mg PO DAILY albuterol sulfate 1 PUFF inhaler 1 puff INHALATION PRN PRN (Reason: Asthma) mometasone-formoterol 13 GM HFA aerosol inhaler 100 mcg INHALATION PRN PRN (Reason: Asthma) methocarbamol 500 mg tablet 500 mg PO TID PRN PRN (Reason: Spasms) citalopram 20 mg tablet 20 mg PO DAILY hydroxyzine HCl 10 mg tablet 20 mg PO Q6H PRN PRN (Reason: Anxiety) Label Comments: take 2 tablets by mouth four times a day if needed for anxiety for 30 DAYS Primary Care Provider: Christa Iverson NP Referrals: Christa Iverson COOK MANAGER, COOK MANAGER-C [Primary Care Provider] - 1-2 Days if not improving Activity Restrictions/Additional Instructions: Return to the emergency department with new or worsening symptoms. You have pulmonary nodules noted on your CT scan. Follow-up with your primary care provider regarding these. Stop smoking. Disposition Disposition: Home, Self Care What to do if you have Problems For any increased pain, shortness of breath, bleeding, nausea or vomiting, chestpain, or any unexpected problems, contact your Primary Care Provider. Call [facility] ([phone]) or report to the closest Emergency Room. Call 911 if necessary. 05/24/221944 <Electronically signed by Renaldo Jurado MD> Cosigner Signature (if applicable): CC: EMILY Iverson ~ Signed [facility] Work Phone: [phone] 304-521812-06-2022 History of Present illness Narrative* Kaylah Echeverria RT(R) - 03/08/2022 2:00 PM EST Radiology Service Progress Note PATIENT NAME: Maryse Pisano DATE OF SERVICE: March 08, 2022 TIME: 2:10 PM PATIENT IDENTITY VERIFICATION COMPLETED USING TWO (2) IDENTIFIERS: Name and Date of confirmedby patient verbally. FALL SCREENING: Has the patient had 2 falls in the last year or 1 fall with injury or currently using an Ambulatory Assistive Device (Walker, Cane, Wheelchair, Crutches, etc.)? No PATIENT GENDER DATA: Female. status: : No status: NO. PATIENT RELEVANT IMPLANT DATA REVIEWED: Yes RADIOLOGY DEPARTMENT: General X-ray: Exam(s) Completed: Pelvis X-Ray: Pelvis with Hip Left PERIPHERAL IV DATA: Not applicable SIGNED BY: RT Angie(Michaelle) March 08, 2022 2:10 PM documented in this encounter11-14-2022 Note ORIGINAL FROM: [place] [id number] PROCEDURE FOR: MARYSE PISANO [address] [place] [address] Home: PID#: [id number] Exam#: [id number] : 1965 Age: 56 TO: CHRISTA IVERSON [employer]IE[employer] [address] [place] [address] Fax: NO FAX EXAMINATION: DIAGNOSTIC DIGITAL RIGHT BREAST MAMMOGRAM WITH TOMOSYNTHESIS, 02/14/2022 8:44 am TECHNIQUE: Diagnostic mammography of the right breast was performed with tomosynthesis. 2D standard and 3D tomosynthesis combination imaging performed through the right breast. Computer aided detection was utilized in the interpretation of this exam. Current study was also evaluated with a Computer Aided Detection (CAD) system. COMPARISON: 08/12/2021, 04/20/2020 HISTORY: ORDERING SYSTEM PROVIDED HISTORY: Reason for Exam: right breast pain, h/o cysts Right breast complicated cyst 3 o'clock FINDINGS: BREAST DENSITY: Heterogeneously dense There are postoperative changes in the right breast. There are benign appearing scattered densities throughout the right breast. No significant masses, calcifications, or other findings. IMPRESSION: No mammographic evidence of malignancy. An ultrasound was performed today and will be reported separately. BIRADS: MAMMOGRAM BI-RADS: 0: Needs addl evaluation RECALL: immediate RECALL TYPE: Right US LETTER SENT: Normal-Needs additional work up BI-RADS 0 Interpreted by: Estuardo Pulido MD Preliminary Report By: Estuardo Pulido MD Electronically signed By Estuardo Pulido MD Dictated Date: 02/14/2022 10:11:28 AM Prelim Date: 02/14/2022 10:13:38 AM Sign Date: 02/14/2022 10:13:38 AM Ordering Provider: CHRISTA IVERSON CLINICAL: 6 MONTHS FOLLOW-UP MAMMOGRAPHIC DENSITY RIGHT BREAST. Pharmaceutical Plant Operator: SOHAN FERRARI RT (R) (M) (CT) letter sent: Normal-Needs additional work up BI-RADS 0 Mammogram BI-RADS: 0 [facility]11-14-2022 Note ORIGINAL FROM: [facility] [address], [place] [address] PROCEDURE FOR: MARYSE PISANO [address] [place] [address] Home: PID#: [id number] Exam#: [id number] : 1965 Age: 56 TO: CHRISTA IVERSON [employer] [address] [place], [place] [address] Fax: NO FAX EXAMINATION: DIAGNOSTIC DIGITAL RIGHT BREAST MAMMOGRAM WITH TOMOSYNTHESIS, 02/14/2022 8:44 am TECHNIQUE: Diagnostic mammography of the right breast was performed with tomosynthesis. 2D standard and 3D tomosynthesis combination imaging performed through the right breast. Computer aided detection was utilized in the interpretation of this exam. Current study was also evaluated with a Computer Aided Detection (CAD) system. COMPARISON: 08/12/2021, 04/20/2020 HISTORY: ORDERING SYSTEM PROVIDED HISTORY: Reason for Exam: right breast pain, h/o cysts Right breast complicated cyst 3 o'clock FINDINGS: BREAST DENSITY: Heterogeneously dense There are postoperative changes in the right breast. There are benign appearing scattered densities throughout the right breast. No significant masses, calcifications, or other findings. IMPRESSION: No mammographic evidence of malignancy. An ultrasound was performed today and will be reported separately. BIRADS: MAMMOGRAM BI-RADS: 0: Needs addl evaluation RECALL: immediate RECALL TYPE: Right US LETTER SENT: Normal-Needs additional work up BI-RADS 0 Interpreted by: Estuardo Pulido MD Preliminary Report By: Estuardo Pulido MD Electronically signed By Estuardo Pulido MD Dictated Date: 02/14/2022 10:11:28 AM Prelim Date: 02/14/2022 10:13:38 AM Sign Date: 02/14/2022 10:13:38 AM Ordering Provider: CHRISTA IVERSON CLINICAL: 6 MONTHS FOLLOW-UP MAMMOGRAPHIC DENSITY RIGHT BREAST. Pharmaceutical Plant Operator: SOHAN FERRARI RT (R) (M) (CT) letter sent: Normal-Needs additional work up BI-RADS 0 Mammogram BI-RADS: 0 Indeterminate [facility]07-12-2022 NoteHNO ID: [id number] Author: Janak Dubon MD Service: ? Author Type: Physician Type: Progress Notes Filed: 10/12/2021 6:03 PM Note Text: [facility] General Arthritis and Rheumatology Janak Smith [address] [facility] [address] [place] [address] RHEUMATOLOGY PROGRESS NOTE Established Patient HPI: Maryse Pisano is a 55 year old female who presents for follow up Pain in the hips and low back pain. Goes to pain doctors and GP. On vitamin B12 now. Stopped the vitamin D2 because of nausea. Taking D3 . On thyroid medications , nexium and probiotic. Still smoking. Vitamin D and B12 have improved the pains. Current Outpatient Medications on File Prior to Visit Medication Sig - ergocalciferol 50,000 unit capsule (VITAMIN D2, DRISDOL) Take 1 capsule by mouth one time a week. - esomeprazole (NEXIUM) 20 mg capsule Take 20 mg by mouth once daily. - levothyroxine (SYNTHROID) 50 mcg tablet Take 50 mcg by mouth once daily. - methocarbamol (ROBAXIN) 500 mg tablet Take 500 mg by mouth three times daily. - Lactobacillus acidophilus (ACIDOPHILUS ORAL) Take by mouth. - linaclotide (LINZESS) 145 mcg capsule Take by mouth once daily. - cimetidine (TAGAMET HB) 200 mg tablet Take 200 mg by mouth daily at bedtime. - albuterol HFA (PROVENTIL HFA, VENTOLIN HFA) 90 mcg/actuation inhaler Inhale 2 Puffs as instructed. - mometasone-formoterol (DULERA) 100-5 mcg/actuation inhaler Inhale 2 Puffs as instructed twice daily. - diclofenac sodium (VOLTAREN) 1 % topical gel Apply 2 g to affected area four times daily. No current facility-administered medications on file prior to visit. CBC Latest Ref Rng AND Units 10/15/2009 02/03/2010 09/26/2012 05/22/2014 WBC 3.70 - 11.00 k/uL - - 11.63(H) 12.13(H) HEMOGLOBIN 11.5 - 15.5 g/dL - - 13.3 13.2 HEMOGLOBIN, JOSE ALEJANDRO 11.5 - 15.5 g/dL 13.5 14.1 - - HEMATOCRIT 36.0 - 46.0 % - - 40.1 41.4 PLATELETS 150 - 400 k/uL - - 258 261 ABS NEUT (ANC) 1.45 - 7.50 k/uL - - - 7.84(H) ABS NEUT, JOSE ALEJANDRO 2.0 - 8.1 k/uL 4.1 - - - ABS LYMP, JOSE ALEJANDRO 1.0 - 5.5 k/uL 2.5 - - - ABS LYMPH 1.00 - 4.00 k/uL - - - 3.46 CMP Latest Ref Rng AND Units 06/27/2012 09/26/2012 05/22/2014 05/05/2016 SODIUM 136 - 144 mmol/L 137 139 138 140 SODIUM, JOSE ALEJANDRO 132 - 148 mmol/L - - - - SODIUM, JOSE ALEJANDRO 132 - 148 mmol/L - - - - POTASSIUM 3.7 - 5.1 mmol/L 4.1 3.7 4.1 5.0 POTASSIUM, JOSE ALEJANDRO 3.5 - 5.0 mmol/L - - - - CHLORIDE 97 - 105 mmol/L 104 105 102 102 CHLORIDE, JOSE ALEJANDRO 98 - 110 mmol/L - - - - CO2 22 - 30 mmol/L 22(L) 22(L) 24 28 CO2, JOSE ALEJANDRO 23.0 - 32.0 mmol/L - - - - GLUCOSE 74 - 99 mg/dL 111(H) 67 86 75 GLUCOSE (U), JOSE ALEJANDRO NEGAT mg/dL - - - - GLUCOSE, JOSE ALEJANDRO 65 - 100 mg/dL - - - - BUN 7 - 21 mg/dL 15 6(L) 10 8 BUN, JOSE ALEJANDRO 10 - 25 mg/dL - - - - CREATININE 0.58 - 0.96 mg/dL 0.70 0.79 0.69(L) 0.79 CREATININE, JOSE ALEJANDRO 0.7 - 1.4 mg/dL - - - - CALCIUM, JOSE ALEJANDRO 8.5 - 10.5 mg/dL - - - - CALCIUM, TOTAL 8.6 - 10.0 mg/dL 9.2 9.3 9.5 8.8 AST 13 - 35 U/L 16 16 - 18 AST, JOSE ALEJANDRO 7 - 40 U/L - - - - ALT 7 - 38 U/L 9 6 - 7 ALT, JOSE ALEJANDRO 0 - 45 U/L - - - - ALKALINE PHOSPHATASE 32 - 117 U/L 75 77 - 117 ESR, WSR Latest Ref Rng AND Units 10/31/2008 02/03/2010 05/20/2010 07/27/2011 WSR 0 - 15 mm/hr - - - 1 SED RATE, JOSE ALEJANDRO 0 - 20 mm/hr 7 7 6 - CK Latest Ref Rng AND Units 07/27/2011 CK, JOSE ALEJANDRO 30 - 220 U/L 70 RF and CCP Latest Ref Rng AND Units 05/20/2010 RHEUMATOID FACTOR <20 IU/mL <7 Antibodies Latest Ref Rng AND Units 10/15/2009 05/20/2010 KD BY EIA <1.5 OD Ratio 0.3 0.5 Urinalysis Latest Ref Rng AND Units 04/15/2003 10/15/2009 05/05/2016 05/12/2016 PROTEIN, URINE Negative mg/dL - - Unable to assay. 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/2010 - Dysthymic disorder Depression (non-psychotic) - Esophageal reflux Gastroesophageal reflux - Esophagitis, unspecified - Generalized anxiety disorder Anxiety, Generalized - Hearing disorder - Irritable bowel syndrome Irritable bowel - Other emphysema (HCC) Emphysema - PMH - PAST MEDICAL HISTORY OF PULMONARY NODULE - PMH - PAST MEDICAL HISTORY OF SEIZURES - Thyroid cancer (HCC) PAST SURGICAL HISTORY Procedure Laterality Date - APPENDECTOMY 2004 laparoscopic - , LOW CERV, IN-HOSP CAR 07/18/1991 - DELIVERY ONLY 1991 , low cervical - COLONOSCOPY FLX DX W/COLLJ SPEC WHEN PFRMD 11/28/08 Colonoscopy / Wong - COLONOSCOPY FLX DX W/COLLJ SPEC WHEN PFRMD 08/05/2010 Colonoscopy - COLONOSCOPY FLX DX W/COLLJ SPEC WHEN PFRMD 06/11/14 Colonoscopy - EGD TRANSORAL BIOPSY SINGLE/MULTIPLE 01/06/10 - ESOPHAGOGASTRODUODENOSCOPY DARDEN (more content not included)...[facility]07-12-2022 History of Present illness Narrative* Janak Dubon MD - 10/12/2021 10:05 AM EDT Images from the original note were not included. [facility] General Arthritis and Rheumatology Janak Sarah [address] [facility] [address] [place] [address] RHEUMATOLOGY PROGRESS NOTE Established Patient HPI: Maryse Pisano is a 55 year old female who presents for follow up Pain in the hips and low back pain. Goes to pain doctors and GP. On vitamin B12 now. Stopped the vitamin D2 because of nausea. Taking D3 . On thyroid medications , nexium and probiotic. Still smoking. Vitamin D and B12 have improved the pains. Current Outpatient Medications on File Prior to Visit Medication Sig ergocalciferol 50,000 unit capsule (VITAMIN D2, DRISDOL) Take 1 capsule by mouth one time a week. esomeprazole (NEXIUM) 20 mg capsule Take 20 mg by mouth once daily. levothyroxine (SYNTHROID) 50 mcg tablet Take 50 mcg by mouth once daily. methocarbamol (ROBAXIN) 500 mg tablet Take 500 mg by mouth three times daily. Lactobacillus acidophilus (ACIDOPHILUS ORAL) Take by mouth. linaclotide (LINZESS) 145 mcg capsule Take by mouth once daily. cimetidine (TAGAMET HB) 200 mg tablet Take 200 mg by mouth daily at bedtime. albuterol HFA (PROVENTIL HFA, VENTOLIN HFA) 90 mcg/actuation inhaler Inhale 2 Puffs as instructed. mometasone-formoterol (DULERA) 100-5 mcg/actuation inhaler Inhale 2 Puffs as instructed twice daily. diclofenac sodium (VOLTAREN) 1 % topical gel Apply 2 g to affected area four times daily. No current facility-administered medications on file prior to visit. CBC Latest Ref Rng & Units 10/15/2009 02/03/2010 09/26/2012 05/22/2014 WBC 3.70 - 11.00 k/uL - - 11.63(H) 12.13(H) HEMOGLOBIN 11.5 - 15.5 g/dL - - 13.3 13.2 HEMOGLOBIN, JOSE ALEJANDRO 11.5 - 15.5 g/dL 13.5 14.1 - - HEMATOCRIT 36.0 - 46.0 % - - 40.1 41.4 PLATELETS 150 - 400 k/uL - - 258 261 ABS NEUT (ANC) 1.45 - 7.50 k/uL - - - 7.84(H) ABS NEUT, JOSE ALEJANDRO 2.0 - 8.1 k/uL 4.1 - - - ABS LYMP, JOSE ALEJANDRO 1.0 - 5.5 k/uL 2.5 - - - ABS LYMPH 1.00 - 4.00 k/uL - - - 3.46 CMP Latest Ref Rng & Units 06/27/2012 09/26/2012 05/22/2014 05/05/2016 SODIUM 136 - 144 mmol/L 137 139 138 140 SODIUM, JOSE ALEJANDRO 132 - 148 mmol/L - - - - SODIUM, JOSE ALEJANDRO 132 - 148 mmol/L - - - - POTASSIUM 3.7 - 5.1 mmol/L 4.1 3.7 4.1 5.0 POTASSIUM, JOSE ALEJANDRO 3.5 - 5.0 mmol/L - - - - CHLORIDE 97 - 105 mmol/L 104 105 102 102 CHLORIDE, JOSE ALEJANDRO 98 - 110 mmol/L - - - - CO2 22 - 30 mmol/L 22(L) 22(L) 24 28 CO2, JOSE ALEJANDRO 23.0 - 32.0 mmol/L - - - - GLUCOSE 74 - 99 mg/dL 111(H) 67 86 75 GLUCOSE (U), JOSE ALEJANDRO NEGAT mg/dL - - - - GLUCOSE, JOSE ALEJANDRO 65 - 100 mg/dL - - - - BUN 7 - 21 mg/dL 15 6(L) 10 8 BUN, JOSE ALEJANDRO 10 - 25 mg/dL - - - - CREATININE 0.58 - 0.96 mg/dL 0.70 0.79 0.69(L) 0.79 CREATININE, JOSE ALEJANDRO 0.7 - 1.4 mg/dL - - - - CALCIUM, JOSE ALEJANDRO 8.5 - 10.5 mg/dL - - - - CALCIUM, TOTAL 8.6 - 10.0 mg/dL 9.2 9.3 9.5 8.8 AST 13 - 35 U/L 16 16 - 18 AST, JOSE ALEJANDRO 7 - 40 U/L - - - - ALT 7 - 38 U/L 9 6 - 7 ALT, JOSE ALEJANDRO 0 - 45 U/L - - - - ALKALINE PHOSPHATASE 32 - 117 U/L 75 77 - 117 ESR, WSR Latest Ref Rng & Units 10/31/2008 02/03/2010 05/20/2010 07/27/2011 WSR 0 - 15 mm/hr - - - 1 SED RATE, JOSE ALEJANDRO 0 - 20 mm/hr 7 7 6 - CK Latest Ref Rng & Units 07/27/2011 CK, JOSE ALEJANDRO 30 - 220 U/L 70 RF and CCP Latest Ref Rng & Units 05/20/2010 RHEUMATOID FACTOR <20 IU/mL <7 Antibodies Latest Ref Rng & Units 10/15/2009 05/20/2010 KD BY EIA <1.5 OD Ratio 0.3 0.5 Urinalysis Latest Ref Rng & Units 04/15/2003 10/15/2009 05/05/2016 05/12/2016 PROTEIN, URINE Negative mg/dL - - Unable to assay. 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 Depression (non-psychotic) Esophageal reflux Gastroesophageal reflux Esophagitis, unspecified Generalized anxiety disorder Anxiety, Generalized Hearing disorder Irritable bowel syndrome Irritable bowel Other emphysema (HCC) Emphysema PMH - PAST MEDICAL HISTORY OF PULMONARY NODULE PMH - PAST MEDICAL HISTORY OF SEIZURES Thyroid cancer (HCC) PAST SURGICAL HISTORY Procedure Laterality Date APPENDECTOMY 2004 laparoscopic , LOW CERV, IN-HOSP CAR 07/18/1991 DELIVERY ONLY 1991 , low cervical COLONOSCOPY FLX DX W/COLLJ SPEC WHEN PFRMD 11/28/08 Colonoscopy / Wong COLONOSCOPY FLX DX W/COLLJ SPEC WHEN PFRMD 08/05/2010 Colonoscopy COLONOSCOPY FLX DX W/COLLJ SPEC WHEN PFRMD 06/11/14 Colonoscopy EGD TRANSORAL BIOPSY SINGLE/MULTIPLE 01/06/10 ESOPHAGOGASTRODUODENOSCOPY TRANSORAL DIAGNOSTIC EGD/Wong ESOPHAGOGASTRODUODENOSCOPY TRANSORAL DIAGNOSTIC 08/05/2010 EGD ESOPHAGOGASTRODUODENOSCOPY TRANSORAL DIAGNOSTIC 01/06/2012 EGD ESOPHAGOGASTRODUODENOSCOPY TRANSORAL DIAGNOSTIC 06/11/14 EGD LAPS ABD PRTM&OMENTUM DX W/WO SPEC BR/WA SPX Laparoscopy LAPS SURG CHOLECYSTECTOMY W/CHOLANGIOGRAPHY 01/14/10 Normal IOC LIG/TRNSXJ FLP TUBE ABDL/VAG APPR UNI/BI Tubal ligation MYRINGOTOMY 10/20/1106/13 Left with tube MYRINGOTOMY ASPIR&/EUSTACHIAN TUBE NFLTJ ANES Myringotomy/tubes, multiple sets PAST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 Location:[facility] Appointment Type:CV OV Future Scheduled Tests Laboratory* Lipid Profile 05/27/24 * Complete Metabolic Panel 05/27/24 Radiology* MRI Brain w/o Contrast 05/27/24 * MRI Spine Cervical w/o Contrast 08/21/23 [facility] Evaluation + Plan note Future Appointments Appointment Date:08/19/2024 01:00:00 PM Scheduled Provider:COLLIN WRAY Location:[facility] Appointment Type:CV OV Future Scheduled Tests Laboratory* Vitamin B12 Level 07/01/24 Radiology* MRI Brain w/o Contrast 06/27/24 * MRI Spine Cervical w/o Contrast 08/21/23 [facility] Evaluation + Plan note Future Appointments Appointment Date:11/19/2024 02:30:00 PM Scheduled Provider:CHRISTA IVERSON Location:[facility] Appointment Type:PC OV Appointment Date:05/06/2025 11:00:00 AM Scheduled Provider:COLLIN WRAY Location:[facility] Appointment Type:CV OV Future Scheduled Tests Laboratory* Vitamin B12 Level 07/01/24 Radiology* MRI Brain w/o Contrast 06/27/24 [facility] Evaluation + Plan note Future Appointments Appointment Date:02/18/2025 02:30:00 PM Scheduled Provider:CHRISTA IVERSON Location:[facility] Appointment Type:PC OV Pre Op Appointment Date:05/06/2025 11:00:00 AM Scheduled Provider:COLLIN WRAY Location:[facility] Appointment Type:CV OV Future Scheduled Tests Laboratory* Vitamin B12 Level 07/01/24 Radiology* MA Mammo Screening Bilateral w/ Clark 01/29/25 * BD Bone Density DEXA Axial Skeleton Adult (21 yrs or older) 01/29/25 * MRI Brain w/o Contrast 06/27/24 [facility] evaluation note* Diagnosis Disuse osteoporosis documented in this encounter [facility] noteNo assessment information [facility] Work Phone: Eval[employer]sysx note* Diagnosis Vitamin D deficiency- Primary Unspecified vitamin D deficiency Vitamin B12 deficiency Other B-complex deficiencies Other idiopathic scoliosis, thoracic region documented in this encounter [facility] note* Diagnosis Chronic obstructive pulmonary disease, unspecified COPD type (HCC) documented in this encounter [facility] note* Diagnosis Chronic obstructive pulmonary disease, unspecified COPD type (HCC) Chronic obstructive pulmonary disease, unspecified COPD type (HCC) Stage 3 severe COPD by GOLD classification (HCC)- Primary Cigarette smoker Tobacco use disorder Lung nodules Other nonspecific abnormal finding of lung field [facility] Diagnosis Stage 3 severe COPD by GOLD classification (HCC) documented in this encounter [facility] note* Diagnosis Stage 3 severe COPD by GOLD classification (HCC)- Primary Former smoker Personal history of tobacco use, presenting hazards to health [facility] Narrative No data available for this section [facility] Hospital Discharge instructions No data available for this section [facility] Hospital Discharge instructions Additional Instructions Return to the emergency department with new or worsening symptoms. You have pulmonary nodules noted on your CT scan. Follow-up with your primary care provider regarding these. Stop smoking.[facility] Work Phone: Hospital Discharge instructionsAmbulatory Orders* Physical Therapy Referral Location: [facility] Work Phone: Progress note No data available for this section [facility] Reason for referral (narrative)* Outpatient Procedure (Routine) - Closed Specialty Diagnoses / Procedures Referred By Ethan t Referred To Contact [facility] Diagnoses Chronic obstructive pulmonary disease, unspecified COPD type (HCC) Procedures LUNG DIFFUSION CAPACITY (DLCO) DIFFUSING CAPACITY Julee Barrera MD [address] [place] [address] [facility] [place] [address] [place] [address] Referral ID Status Reason Start Date Expiration Date V isits Requested Visits Authorized [id number] Closed Auto-Generate d Referral 08/03/2023 09/01/2024 1 1 * Outpatient Procedure (Routine) - Closed Specialty Diagnoses / Procedures Referred By Ethan mujica Referred To Contact [facility] Diagnoses Chronic obstructive pulmonary disease, unspecified COPD type (HCC) Procedures SPIROMETRY WITH DILATOR IF OBSTRUCTED BRNCDILAT RSPSE SPMTRY PRE&POST-BRNCDILAT ADMN Julee Barrera MD [address] [place] [address] [facility] [place] [address] [place] [address] Referral ID Status Reason Start Date Expiration Date V isits Requested Visits Authorized [id number] Closed Auto-Generate d Referral 08/03/2023 09/01/2024 1 1 [facility] for referral (narrative)No reason for referral information availableSt[facility] Work Phone: Summary Purpose Family History No Family History Records FoundNo Family History Records FoundNo Family History Records FoundNo Family History Records FoundNo Family History Records FoundNo Family History Records FoundNo Family History Records FoundNo Family History Records Found No data available for this section No data available for this section No data available for this section No data available for this section No data available for this section No data available for this section No data available for this section No data available for this section No data available for this section No data available for this section No data available for this section No data available for this section No data available for this section No data available for this section No data available for this section No data available for this section No data available for this section No data available for this section No data available for this section No data available for this section No Family History Records Found No data available for this section No data available for this section No Family History Records Found No data available for this section No data available for this section No data available for this section No data available for this section No data available for this section No Family History Records FoundNo Family History Records Found Advance Directives No Advanced Directives Records FoundDocuments on File Type Date Recorded 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 Advance Directives and Living Will Power of Pediatric Lpn Latest Code Status on File Code Status Date Activated Date Inactivated Comments Full Code 11/22/2018 6:08 AM Advance Directive Response Recorded Date/ Time Advance Directives No July 27 015 6:13pm Living Will No July 22, 2021 7:39pm Power of Pediatric Lpn No July 22 7:39pm Latest Code Status on File Code Status Date Activated Date Inactivated Comments Full Code 11/22/2018 6:08 AM 11/22/2018 11:00 AM Advance Directive Response Recorded Date/ Time Advance Directives No July 27 015 5:13pm Living Will No May 24, 023 6:00pm Power of Pediatric Lpn No May 24, 2022 6:00pm Advance Directive Response Recorded Date/ Time Advance Directives No July 27, 015 6:13pm Assessments Diagnosis Altered bowel habits - Prima ry Chronic midline thoracic alex k pain Left hip pain Pain in joint, pelvic region and thigh Lumbar pain Lumbago Disc degeneration, lumbosacr al Degeneration of lumbar or lumbosacral intervertebral disc Cervical spine pain Incontinence of feces, unspe cified fecal incontinence type Diagnosis Carpal tunnel syndrome, bila teral - Primary Carpal tunnel syndrome Bilateral wrist pain Numbness and tingling in bot h hands Reason for Referral Status Reason Specialty Diagnoses / Procedures Referre d By Contact Referred To Contact Closed Neurology Diagnoses Bilateral wrist pain Numbness and tingling in both hands Shayy Esposito, [employer] [address] [place] [address] [facility] [address] Medical Office Building, [address]nd [place] [address] History of Present Illness * Mary Kate Mauro MD - 02/21/2018 11:29 AM EST Procedures ELECTROMYOGRAPHY (Nerve Conduction Study/Needle EMG) Brief History: Patient with 3 months of her fingers locking up with accompanying numbness, pain andparesthesias. She also has neck pain but no diabetes. Plan: The study is design to evaluate for radiculopathy, plexopathy, entrapment neuropathy, median or ulnar neuropathy. Indication, risk, side effects, and alternatives were explained. Patient agreedto proceed. Please request raw data if needed. EMG Summary: The bilateral median motor nerve conduction study was normal. The right median sensorynerve conduction study showed borderline latency and normal amplitude while the left median sensorynerve conduction study showed slightly prolonged distal latency and normal amplitude. The bilateral ulnar motor and sensory nerve conduction studies was normal. The bilateral radial sensory nerve conduction study were normal. Needle EMG of the muscles tested showed no abnormal spontaneous activity. Normal motor unit action potentials and recruitment patterns were seen. Impression: This is an abnormal EMG. There is electrodiagnostic evidence of a borderline right median nerve entrapment at the wrist without any axonal damage. There is also electrodiagnostic evidenceof a mild left median nerve entrapment at the wrist without any axonal damage. There is NO electrodiagnostic evidence of bilateral cervical radiculopathy, brachial plexopathy or ulnar neuropathy at this time. in this encounter* Pooja Mclaughlin RN - 11/22/2018 8:34 AM EDT Pt awake Pt sitting up having PO fluids and tolerating well. * Pooja Mclaughlin RN - 11/22/2018 8:08 AM EDT PATIENT RECEIVED FROM OR VIA CART. SPONT RESP. 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 PLACED ON MONITOR. MONITOR ALARMS ON IN PACU. documented in this encounter Discharge Instructions * Instructions* Regina Barney, - 11/22/2018 Post-Op Care for your Ear Tubes Dr. Regina Barney 1. Ear tubes help protect from ear infections, middle-ear fluid (liquid behind the eardrum), and the hearing problems that go along with them. Most tubes last about 6 to 18 months, allowing time for patient to outgrow their ear problems. Most tubes fall out by themselves. The chance of a tube falling in, instead of out, is very rare. Tubes that do not come out after 2 or more years may need to be removed by your doctor. 2. Complications of ear tubes are usually minor. A white regina or patch may develop on the eardrum which is called sclerosis. It does not affect hearing or future chance of ear infections. A small depression or pocket in the eardrum at the tube site may develop after the tube falls out. Again, this does not affect hearing and rarely requires treatment. About 1-2 out of 100 people may develop a small hole (perforation) of the eardrum after the tube falls out. The hole will often close on its own over time. But if it does not, it can be patched in the operating room. It is important to have regular return office appointments to assess the ear tubes and to assure healing of the eardrum. 3. Ear Tubes and Water Protection Some patients with ear tubes wear ear plugs when swimming. The ear plugs keep water out of the ear canal and out of the ear tube. However, water does not usually go through the tube during swimming. As a result, ear plugs are not necessary. Although most patients with tubes do note need ear plugs, they may be necessary in the following situations: A. Pain or discomfort when water enters the ear canal. B. Discharge or drainage is observed coming out of the ear canal. C. Frequent or prolonged episodes of ear discharge. There are times when use of ear plugs are advised. This includes: A. Swimming more that 6 feet under water. Ear plugs should also be worn if there is impact while swimming, such as jumping or diving into a pool. B. Swimming in lakes or non-chlorinated pools C. Dunking head in the bathtub (soapy water has a lower surface tension than plain water). A variety of soft, fitted ear plugs are available , if needed, as are special neoprene headbands tocover the ears. Never use Playdoh or Silly Putty as an earplug, because it can become trapped in the ear canal and require surgical removal. Once the tube becomes blocked or comes out, ear plugs are not needed if there is no hole in the eardrum. 4. Ear Tube Follow-Up and Aftercare Routine follow-up with your doctor every three (3) months is important to make sure that the tubes are in place and to check for any possible problems. All patients need to follow-up no matter how well they are doing. Patients often feel well even when there is a problem with the tube. Once the tubes fall out, you should return for a final re-check so your doctor can check the ears and be sure that fluid has not built up again. If you have any further questions or concerns please contact our office at: [phone] IF YOU HAVE AN EMERGENCY, AND ARE UNABLE TO REACH THE DOCTOR AT THE ABOVE NUMBER, CALL OR GO TO [facility] EMERGENCY ROOM [phone] documented in this encounter Chief Complaint and Reason for Visit Chief Complaint BACK Chief Complaint CHEST PAIN Chief Complaint Admit Date RIGHT HIP September 02, 2024 1:56p m Room 4 September 02, 2024 2:23p m Chief Complaint Admit Date RIGHT HIP September 02, 2024 1:56p m Room 4 September 02, 2024 2:23p m RIGHT HIP October 14, 2024 1:07 pm Reason for Visit Admit Date Osteoarthritis of right hip September 02 1:56pm Chief Complaint Admit Date RIGHT HIP September 02, 2024 1:56p m Room 4 September 02, 2024 2:23p m RIGHT HIP October 14, 2024 1:07 pm RIGHT HIP. RX HERE December 03, 2024 1:30pm Reason for Visit Admit Date Osteoarthritis of right hip September 02 1:56pm DJD (degenerative joint disease), lumbar October 14, 2024 1:07pm Lumbar back pain with radicu lopathy affecting right lower extremity October 14, 2024 1:07pm Osteoarthritis of right hip October 14, 2 025 1:07pm Chief Complaint Admit Date RIGHT HIP September 02, 2024 1:56p m Room September 02, 2024 2:23p m RIGHT HIP October 14, 2024 1:07 pm RIGHT HIP. RX HERE December 03, 2024 1:30pm RIGHT HIP December 11, 2024 2:23pm Reason for Visit Admit Date Osteoarthritis of right hip September 02 1:56pm DJD (degenerative joint disease), lumbar October 14, 2024 1:07pm Lumbar back pain with radicu lopathy affecting right lower extremity October 14, 2024 1:07pm Osteoarthritis of right hip October 14, 2 025 1:07pm DJD (degenerative joint disease), lumbar December 11, 2024 2:23pm Lumbar back pain with radicu lopathy affecting right lower extremity December 11, 2024 2:23pm Osteoarthritis of right hip December 112024 2:23pm Chief Complaint Admit Date RIGHT HIP October 14, 2024 1:07 pm RIGHT HIP. RX HERE December 03, 2024 1:30pm RIGHT HIP December 11, 2024 2:23pm WORSENING LT HIP PAIN, MULTIPLE BANDAR INJ ECTIONS January 01, 2025 4:06pm RIGHT HIP January 06, 2025 1: 45pm Reason for Visit Admit Date DJD (degenerative joint disease), lumbar October 14, 2024 1:07pm Lumbar back pain with radicu lopathy affecting right lower extremity October 14, 2024 1:07pm Osteoarthritis of right hip October 14, 2 025 1:07pm DJD (degenerative joint disease), lumbar December 11, 2024 2:23pm Lumbar back pain with radicu lopathy affecting right lower extremity December 11, 2024 2:23pm Osteoarthritis of right hip December 112024 2:23pm DJD (degenerative joint disease), lumbar January 06, 2025 1:45pm Osteoarthritis of right hip January 06, 2025 1:45pm Chief Complaint Admit Date RIGHT HIP October 14, 2024 1:07 pm RIGHT HIP. RX HERE December 03, 2024 1:30pm RIGHT HIP December 11, 2024 2:23pm WORSENING LT HIP PAIN, MULTIPLE BANDAR INJ ECTIONS January 01, 2025 4:06pm RIGHT HIP January 06, 2025 1: 45pm RIGHT HIP January 13, 2025 1 :44pm Reason for Visit Admit Date DJD (degenerative joint disease), lumbar October 14, 2024 1:07pm Lumbar back pain with radicu lopathy affecting right lower extremity October 14, 2024 1:07pm Osteoarthritis of right hip October 14, 025 1:07pm DJD (degenerative joint disease), lumbar December 11, 2024 2:23pm Lumbar back pain with radicu lopathy affecting right lower extremity December 11, 2024 2:23pm Osteoarthritis of right hip December 112024 2:23pm DJD (degenerative joint disease), lumbar January 06, 2025 1:45pm Osteoarthritis of right hip January 06, 2025 1:45pm Osteoarthritis of right hip January 1:44pm Tobacco abuse January 13, 2025 1 :44pm Additional Source Comments INFORMATION SOURCE (unrecogn ized section and content) DATE CREATED AUTHOR 09/25/2017 [facility] DATE CREATED AUTHOR AUTHOR'S ORGANIZ ATION 09/26/2017 [facility] DATE CREATED AUTHOR AUTHOR'S ORGANIZ ATION 09/27/2017 [facility] DATE CREATED AUTHOR AUTHOR'S ORGANIZ ATION 03/12/2018 [facility] DATE CREATED AUTHOR AUTHOR'S ORGANIZ ATION 03/12/[facility] DATE CREATED AUTHOR AUTHOR'S ORGANIZ ATION 08/28/2020 [facility] DATE CREATED AUTHOR AUTHOR'S ORGANIZ ATION 10/13/2021 [facility] DATE CREATED AUTHOR AUTHOR'S ORGANIZ ATION 12/02/2021 [facility] DATE CREATED AUTHOR AUTHOR'S ORGANIZ ATION 12/02/2023 [facility] ([place]) DATE CREATED AUTHOR AUTHOR'S ORGANIZ ATION 05/31/2024 [facility] DATE CREATED AUTHOR AUTHOR'S ORGANIZ ATION 01/31/2025 [facility] DATE CREATED AUTHOR AUTHOR'S ORGANIZ ATION 02/13/2025 [facility] Reason for Visit (unrecogniz ed section and content) Status Reason Specialty Diagnoses / Procedures Referre d By Contact Referred To Contact Closed Neurology Diagnoses Bilateral wrist pain Numbness and tingling in both hands Shayy Esposito, [employer] [address] [place] [address] [facility] [address] Medical Office Building, [address]nd [place] [address] Reason Comments Smoking Cessation Reason Comments Back Pain Reason Comments Spirometry Specialty Diagnoses / Procedures Referred By Contac t Referred To Contact [facility] Diagnoses Chronic obstructive pulmonary disease, unspecified COPD type (HCC) Procedures LUNG DIFFUSION CAPACITY (DLCO) DIFFUSING CAPACITY Julee Barrera MD [address] [place] [address] [facility] [place] [address] [place] [address] Referral ID Status Reason Start Date Expiration Date V isits Requested Visits Authorized [id number] Closed Auto-Generate d Referral 08/03/2023 09/01/2024 1 1 Specialty Diagnoses / Procedures Referred By Contac t Referred To Contact [facility] Diagnoses Chronic obstructive pulmonary disease, unspecified COPD type (HCC) Procedures SPIROMETRY WITH DILATOR IF OBSTRUCTED BRNCDILAT RSPSE SPMTRY PRE&POST-BRNCDILAT ADMJulee Vallejo MD [address] [place] [address] [facility] [place] [address] [place] [address] Referral ID Status Reason Start Date Expiration Date V isits Requested Visits Authorized [id number] Closed Auto-Generate d Referral 08/03/2023 09/01/2024 1 1 Reason Comments Consult Reason Comments hypoxemia Reason Onset Date Comments Refill Request 08/11/2023 Reason Comments Established Patient 4 month follow up [place] PD Source Comments (unrecognize d section and content) In the event this informatio n is protected by the Federal Confidentiality of Alcohol and Drug Abuse Patient Records regulations: The Federal rules restrict any use of the information to criminally investigate or prosecute any alcohol or drug abuse patient.In the event this information is protected by the Federal Confidentiality of Alcohol and Drug Abuse Patient Records regulations: The Federal rules restrict any use of the information to criminally investigate or prosecute any alcohol or drug abuse patient.In the event this information is protected by the Federal Confidentiality of Alcohol and Drug Abuse Patient Records regulations: The Federal rules restrict any use of the information to criminally investigate or prosecute any alcohol or drug abuse patient.In the event this information is protected by the Federal Confidentiality of Alcohol and Drug Abuse Patient Records regulations: The Federal rules restrict any use of the information to criminally investigate or prosecute any alcohol or drug abuse patient.In the event this information is protected by the Federal Confidentiality of Alcohol and Drug Abuse Patient Records regulations: The Federal rules restrict any use of the information to criminally investigate or prosecute any alcohol or drug abuse patient.In the event this information is protected by the Federal Confidentiality of Alcohol and Drug Abuse Patient Records regulations: The Federal rules restrict any use of the information to criminally investigate or prosecute any alcohol or drug abuse patient.In the event this information is protected by the Federal Confidentiality of Alcohol and Drug Abuse Patient Records regulations: The Federal rules restrict any use of the information to criminally investigate or prosecute any alcohol or drug abuse patient.In the event this information is protected by the Federal Confidentiality of Alcohol and Drug Abuse Patient Records regulations: The Federal rules restrict any use of the information to criminally investigate or prosecute any alcohol or drug abuse patient.In the event this information is protected by the Federal Confidentiality of Alcohol and Drug Abuse Patient Records regulations: The Federal rules restrict any use of the information to criminally investigate or prosecute any alcohol or drug abuse patient.In the event this information is protected by the Federal Confidentiality of Alcohol and Drug Abuse Patient Records regulations: The Federal rules restrict any use of the information to criminally investigate or prosecute any alcohol or drug abuse patient.In the event this information is protected by the Federal Confidentiality of Alcohol and Drug Abuse Patient Records regulations: The Federal rules restrict any use of the information to criminally investigate or prosecute any alcohol or drug abuse patient. Care Teams (unrecognized sec tion and content) Small Products I Assembler Relationship Specialty Start Date End Date Christa Iverson CNP [address] [place] [phone] PCP - General Family Practice 06/21/21 Small Products I Assembler Relationship Specialty Start Date End Date Christa Iverson CNP [address] [place] [phone] PCP - General Family Practice 06/21/21 Small Products I Assembler Relationship Specialty Start Date End Date Christa Iverson CNP [address] [place] [phone] PCP - General Family Practice 06/21/21 Small Products I Assembler Relationship Specialty Start Date End Date Christa Iverson CNP [address] [place] [address] (Work) PCP - General Family Practice 06/21/21 Small Products I Assembler Relationship Specialty Start Date End Date Christa Iverson APRN - COOK MANAGER PCP - General 07/09/18 Team Status: Active Member Role Status Dates Christa Iverson COOK MANAGER, COOK MANAGER-C Family Provider Active Christa Iverson COOK MANAGER, COOK MANAGER-C Primary Care Provider Active Team Status: Inactive Member Role Status Dates Christa Iverson COOK MANAGER, COOK MANAGER-C Primary Care Provider Active Renaldo Jurado MD Emergency Provider Active Small Products I Assembler Relationship Specialty Start Date End Date Christa Iverson CNP [address] [place] [phone] (Work) PCP - General Family Medicine 06/21/21 Christa Iverson CNP [address] [place] [phone] Referring Family Medicine 07/11/23 Small Products I Assembler Relationship Specialty Start Date End Date Christa Iverson CNP [address] [place] [phone] PCP - General Family Medicine 06/21/21 Christa Iverson CNP [address] [place] [phone] Referring Family Medicine 07/11/23 Small Products I Assembler Relationship Specialty Start Date End Date Christa Iverson CNP [address] [place] [phone] PCP - General Family Medicine 06/21/21 Christa Iverson CNP [address] [place] [phone] Referring Family Medicine 07/11/23 Small Products I Assembler Relationship Specialty Start Date End Date Christa Iverson CNP [address] [place] [phone] (Work) PCP - General Family Medicine 06/21/21 Christa Iverson CNP [address] [place] [address] Referring Family Medicine 07/11/23 Small Products I Assembler Relationship Specialty Start Date End Date Christa Iverson CNP [address] [place] [phone] PCP - General Family Medicine 06/21/21 Small Products I Assembler Relationship Specialty Start Date End Date Christa Iverson CNP [address] [place] [phone] PCP - General Family Medicine 06/21/21 Christa Iversno CNP [address] [place] [phone] Referring Family Medicine 07/11/23 Team Status: Active Member Role Status Dates Christa Iverson COOK MANAGER, COOK MANAGER-C Primary Care Provider Active Start: September 02, 2024 Christa Iverson NP, COOK MANAGER-C Referring Provider Active Start: September 02, 2024 Maile Coughlin COOK MANAGER-C Attending Provider Active Start: September 02, 2024 Team Status: Inactive Member Role Status Dates Christa Iverson NP, COOK MANAGER-C Primary Care Provider Active Start: September 02, 2024 End: September 02, 2024 Dr. Petey Delgado MD Attending Provider Active S tart: September 02, 2024 End: September 02, 2024 Team Status: Inactive Member Role Status Dates Christa Iverson NP, COOK MANAGER-C Primary Care Provider Active Start: September 02, 2024 End: September 02, 2024 Christa Iverson NP, COOK MANAGER-C Referring Provider Active Start: September 02, 2024 End: September 02, 2024 Maile Coughlin COOK MANAGER-C Attending Provider Active Start: September 02, 2024 End: September 02, 2024 Team Status: Active Member Role/Relationship Status Dates Christa Iverson NP, COOK MANAGER-C Primary Care Provider Active Team Status: Inactive Member Role/Relationship Status Dates Christa Iverson NP, COOK MANAGER-C Primary Care Provider Active Start: September 02, 2024 End: September 02, 2024 Christa Iverson NP, COOK MANAGER-C Referring Provider Active Start: September 02, 2024 End: September 02, 2024 Maile Coughlin COOK MANAGER-C Attending Provider Active Start: September 02, 2024 End: September 02, 2024 Team Status: Inactive Member Role/Relationship Status Dates Christa Iverson NP, COOK MANAGER-C Primary Care Provider Active Start: September 02, 2024 End: September 02, 2024 Dr. Peety Delgado MD Attending Provider Active S tart: September 02, 2024 End: September 02, 2024 Team Status: Inactive Member Role/Relationship Status Dates Christa Iverson NP, COOK MANAGER-C Primary Care Provider Active Start: October 14, 2024 End: October 14, 2024 Christa Iverson NP, COOK MANAGER-C Referring Provider Active Start: October 14, 2024 End: October 14, 2024 Maile Coughlin COOK MANAGER-C Attending Provider Active Start: October 14, 2024 End: October 14, 2024 Team Status: Inactive Member Role/Relationship Status Dates Christa Iverson NP, COOK MANAGER-C Primary Care Provider Active Start: December 03, 2024 End: December 03, 2024 Maile Coughlin COOK MANAGER-C Attending Provider Active Start: December 03, 2024 End: December 03, 2024 Maile Coughlin COOK MANAGER-C Referring Provider Active Start: December 03, 2024 End: December 03, 2024 Team Status: Inactive Member Role/Relationship Status Dates Christa Iverson NP, COOK MANAGER-C Primary Care Provider Active Start: December 11, 2024 End: December 11, 2024 Chirsta Iverson NP, COOK MANAGER-C Referring Provider Active Start: December 11, 2024 End: December 11, 2024 Maile Coughlin COOK MANAGER-C Attending Provider Active Start: December 11, 2024 End: December 11, 2024 Team Status: Active Member Role/Relationship Status Dates Christa Iverson NP, COOK MANAGER-C Primary care physician Active Team Status: Inactive Member Role/Relationship Status Dates Christa Iverson NP, COOK MANAGER-C Primary care physician Active Start: October 14, 2024 End: October 14, 2024 Christa Iverson NP, COOK MANAGER-C Referring Provider Active Start: October 14, 2024 End: October 14, 2024 Maile Coughlin COOK MANAGER-C Attending physician Active Start: October 14, 2024 End: October 14, 2024 Team Status: Inactive Member Role/Relationship Status Dates Christa Iverson NP, COOK MANAGER-C Primary care physician Active Start: December 03, 2024 End: December 03, 2024 Maile Coughlin COOK MANAGER-C Attending physician Active Start: December 03, 2024 End: December 03, 2024 Maile Coughlin COOK MANAGER-C Referring Provider Active Start: December 03, 2024 End: December 03, 2024 Team Status: Inactive Member Role/Relationship Status Dates Christa Iverson NP, COOK MANAGER-C Primary care physician Active Start: December 11, 2024 End: December 11, 2024 Christa Iverson NP, COOK MANAGER-C Referring Provider Active Start: December 11, 2024 End: December 11, 2024 Maile Coughlin COOK MANAGER-C Attending physician Active Start: December 11, 2024 End: December 11, 2024 Team Status: Active Member Role/Relationship Status Dates Christa Iverson NP, COOK MANAGER-C Primary care physician Active Start: January 01, 2025 Maile Coughlin NP-C Attending physician Active Start: January 01, 2025 Maile Coughlin COOK MANAGER-C Referring Provider Active Start: January 01, 2025 Team Status: Inactive Member Role/Relationship Status Dates Christa Iverson NP, COOK MANAGER-C Primary care physician Active Start: January 06, 2025 End: January 06, 2025 Christa Iverson NP, COOK MANAGER-C Referring Provider Active Start: January 06, 2025 End: January 06, 2025 Maile Coughlin COOK MANAGER-C Attending physician Active Start: January 06, 2025 End: January 06, 2025 Team Status: Inactive Member Role/Relationship Status Dates Christa Iverson NP, COOK MANAGER-C Primary care physician Active Start: January 01, 2025 End: January 01, 2025 Maile Coughlin COOK MANAGER-C Attending physician Active Start: January 01, 2025 End: January 01, 2025 Maile Coughlin NP-C Referring Provider Active Start: January 01, 2025 End: January 01, 2025 Team Status: Inactive Member Role/Relationship Status Dates Christa Iverson NP, COOK MANAGER-C Primary care physician Active Start: January 13, 2025 End: January 13, 2025 Christa Iverson NP, COOK MANAGER-C Referring Provider Active Start: January 13, 2025 End: January 13, 2025 Dr. Tyler Wang , Attending physician Active Start: January 13, 2025 End: January 13, 2025 Goals (unrecognized section and content) Goals may be documented in a n alternate section Care Team (unrecognized sect ion and content) Care Team Personnel Name: CHRISTA IVERSON ELECTRICAL CONSTRUCTION PROJECT MANAGER-BATTALION CHIEF Position: P4 Advanced Practice Nurse Med Service: Active Provider Member Role: Primary Care Physician Address: Address: [address] [place] [phone] Care Team Related Persons Name: EVELIA JULEE Name: NONE, Name: AYLX GONZALEZ Address: Home [address] [place] [phone] Name: ALYX GONZALEZ Address: Home [address] [place] [address] [phone] [place] Name: LISA ALYX A Address: Home [address] [place] [phone] [place] Name: REPP ALYX A Address: Home [address] [place], [place] [phone] [place] Name: BURT GONZALEZHLEEN A Address: Home [address] [place] [phone] [place] Name: P ALYX A Address: Home [address] [place] [address] [phone] [place] Name: P ALYX A Address: Home [address] [place] [address] [phone] [place] Name: BURT GONZALEZHLEEN A Address: Home [address] [place] [address] [phone] [place] Name: BURT GONZALEZHLEEN A Address: Home [address] [place] [address] [phone] [place] Name: BURT GONZALEZHLEEN A Address: Home [address] [place] [address] [phone] [place] Name: RAMOS GONZALEZEEN A Address: Home [address] [place] [address] [phone] [place] Name: HARJEET GONZALEZ Name: ALEJANDRA RECINOS Name: KOURTNEY CASEY Care Team Personnel Name: CHRISTA IVERSON ELECTRICAL CONSTRUCTION PROJECT MANAGER-BATTALION CHIEF Position: P4 Advanced Practice Nurse Med Service: Active Provider Member Role: Primary Care Physician Address: Address: [address] [place] [phone] [place] [address] Care Team Related Persons Name: JULEE ALTAMIRANO Name: NONE, Name: ALYX GONZALEZ Address: Home [address] [place] [phone] [place] Name: BURT GOZNALEZHLEEN A Address: Home [address] [place] [address] [phone] [place] Name: BURT GONZALEZHLEEN A Address: Home [address] [place] [address] [phone] [place] Name: BURT GONZALEZHLEEN A Address: Home [address] [place] [address] [phone] [place] Name: REPP, ALYX A Address: Home [address] [place], [place] [phone] [place] Name: REPP, ALYX A Address: Home [address] [place], [place] [phone] [place] Name: REPP, ALYX A Address: Home [address] [place], [place] [phone] [place] Name: REPP, ALYX A Address: Home [address] [place] [address] [phone] [place] Name: REPP ALYX A Address: Home [address] [place] [address] [phone] [place] Name: REPP, ALYX A Address: Home [address] [place] [address] [phone] [place] Name: REPPBURTALYX A Address: Home [address] [place] [address] [phone] [place] Name: HARJEET GONZALEZ Name: ALEJANDRA RECINOS Name: KOURTNEY CASEY Care Team Personnel Name: CHRISTA IVERSON APRN-BATTALION CHIEF Position: P4 Advanced Practice Nurse Member Role: Primary Care Physician Address: Address: [address] [place] [address] Care Team Related Persons Name: JULEE ALTAMIRANO Name: NONE, Name: REPALYX Torres Address: Home [address] [place] [address] [phone] [place] Name: REPPBURTALYX A Address: Home [address] [place] [address] [phone] [place] Name: REPP ALYX A Address: Home [address] [place] [address] [phone] [place] Name: REPP ALXY A Address: Home [address] [place] [address] [phone] [place] Name: REPP ALYX A Address: Home [address] [place] [address] [phone] [place] Name: REPP ALYX A Address: Home [address] [place] [address] [phone] [place] Name: REPP ALYX A Address: Home [address] [place] [address] [phone] [place] Name: REPP, ALYX A Address: Home [address] [place] [address] [phone] [place] Name: REPP, ALYX A Address: Home [address] [place] [address] [phone] [place] Name: REPP, ALYX A Address: Home [address] [place] [address] [phone] [place] Name: REPP ALYX A Address: Home [address] [place] [address] [phone] [place] Name: HARJEET GONZALEZ Name: ALEJANDRA RECINOS Name: KOURTNEY CASEY Care Team Personnel Name: CHRISTA IVERSON APRN-BATTALION CHIEF Position: P4 Advanced Practice Nurse Member Role: Primary Care Physician Address: Address: [address] [place] [phone] [place] Care Team Related Persons Name: JULEE ALTAMIRANO Name: NONE, Name: REPP ALYX Address: Home [address] [place] [phone] [place] Name: REPP, ALYX A Address: Home [address] [place] [address] [phone] [place] Name: REPP, ALYX A Address: Home [address] [place] [address] [phone] [place] Name: REPP ALYX A Address: Home [address] [place] [address] [phone] [place] Name: REPP, ALYX A Address: Home [address] [place] [address] [phone] [place] Name: REPP, ALYX A Address: Home [address] [place] [address] [phone] [place] Name: REPP, ALYX A Address: Home [address] [place] [address] [phone] [place] Name: REPP, ALXY A Address: Home [address] [place] [address] [phone] [place] Name: REPP, ALYX A Address: Home [address] [place] [address] [phone] [place] Name: REPP, ALYX A Address: Home [address] [place] [address] [phone] [place] Name: LISA ALYX A Address: Home [address] [place] [address] [phone] [place] Name: HARJEET GONZALEZ Name: ALEJANDRA RECINOS Name: KOURTNEY CASEY Care Team Personnel Name: CHRISTA IVERSON ELECTRICAL CONSTRUCTION PROJECT MANAGER-BATTALION CHIEF Position: P4 Advanced Practice Nurse Member Role: Primary Care Physician Address: Address: [address] [place] [phone] [place] Care Team Related Persons Name: JULEE ALTAMIRANO Name: NONE, Name: REPBURT TorresALYX Address: [address] [phone] [place] Name: LISA ALYX A Address: Home [address] [place] [address] [phone] [place] Name: LISA ALYX A Address: Home [address] [place] [address] [phone] [place] Name: LISA ALYX A Address: Home [address] [place] [address] [phone] [place] Name: LISA ALYX A Address: Home [address] [place] [address] [phone] [place] Name: LISA ALYX A Address: Home [address] [place] [address] [phone] [place] Name: REPBrian ALYX A Address: [address] [phone] [place] Name: LISA ALYX A Address: Home [address] [place] [address] [phone] [place] Name: REPBrian ALYX A Address: [address] [phone] [place] Name: LISA ALYX A Address: [address] [phone] [place] Name: LISA ALYX A Address: [address] [phone] [place] Name: HARJEET GONZALEZ Name: ALEJANDRA RECINOS Name: KOURTNEY CASEY FOR RECORDS PERTAINING TO PATIENTS WHO ARE OR HAVE BEEN ENROLLED IN A CHEMICAL DEPENDENCY/SUBSTANCEABUSE PROGRAM, SOME INFORMATION MAY BE OMITTED. This clinical summary was aggregated from multiple sources. Caution should be exercised in using it in the provision of clinical care. This summary normalizes information from multiple sources, and as a consequence, information in this document may materially change the coding, format and clinical context of patient data. In addition, data may be omitted in some cases. CLINICAL DECISIONS SHOULD BE BASED ON THE PRIMARY CLINICAL RECORDS. [facility] [employer] [facility]. provides no warranty or guarantee of the accuracy or completeness of information in this document.
[2025-03-11] MEDS: Senna/Docusate Sodium 1 Tablet 2 TABLET PO (21:45)
[2025-03-11] MEDS: Potassium Chloride Oral Tablet 20 MEQ PO (21:46)
[2025-03-11] MEDS: Vancomycin HCl 1,000 MG in 0.9% Normal Saline (250mL Bag) 250 ML 250 MG IV (21:51)
[2025-03-12] VITALS (9 sets, daily range): BP systolic 120–138; BP diastolic 63–75; PULSE 72–96; RESP 15–20; TEMP 36.6–36.7; O2SAT 91–97
[2025-03-12] MEDS: Lactated Ringers 1,000 ML 125 ML IV (00:57)
[2025-03-12 06:30] LABS: Hematocrit 29.4 % (37-47); Hemoglobin 9.2 g/dL (12.0-15.0); Immature Granulocytes Count 0.030 X10^3/uL (0.0-0.0); Mean Corp Hgb Conc 31.3 g/dL (32-36); Mean Corpuscular Volume 91.0 fL (81-99); Mean Platelet Vol. 9.4 fl (6.2-12.0); NRBC Flagged by Analyzer 0 % (0-5); Platelet Count 206 K/mm3 (150-450); RBC Distribution Width CV 12.8 % (11.6-14.6); RBC Distribution Width SD 42.2 fl (35.1-43.9); Red Blood Count 3.23 M/mm3 (4.2-5.4); White Blood Count 8.4 K/mm3 (4.4-11.0)
[2025-03-12] MEDS: APIXABAN 2.5 MG TABLET (WCH) PO ×2 (06:31→21:39)
[2025-03-12] MEDS: Budesonide Respules 0.5 MG/2 ML AMPUL.NEB. INHALATION ×2 (06:51→19:36)
[2025-03-12 06:53] LABS: Anion Gap 11 (5-15); BUN 15 mg/dL (4-19); BUN/Creat Ratio 21.6 RATIO (10-20); Calcium,Total 9.1 mg/dL (7.6-11.0); Carbon Dioxide 22.4 mmol/L (21.0-32.0); Chloride 101 mmol/L (98-108); Estimated Creatinine Clearance 88.81 ml/min (50-250); Glucose 131 mg/dL (70-99); Potassium 4.8 mmol/L (3.3-5.1)
[2025-03-12] MEDS: Magnesium Chloride 64 MG Delay Rel.Tablet 128 MG PO (07:51)
[2025-03-12] MEDS: Potassium Chloride Oral Tablet 20 MEQ PO ×2 (07:51→16:12)
[2025-03-12] MEDS: Metoprolol(XL)Succ 25 MG Tablet PO (07:52)
[2025-03-12] MEDS: Senna/Docusate Sodium 1 Tablet 2 TABLET PO (07:53)
[2025-03-12] MEDS: hydrOXYzine PAM 25 MG Capsule PO ×4 (08:04→21:35)
[2025-03-12] MEDS: Ensure Surgery 237 ML LIQUID PO ×3 (08:04→16:12)
--- NOTE | 2025-03-12 11:32 | CASEMGMT ---
LINDA MEZA Assessment: Face to Face with pt for initial transition planning/care coordination assessment. RN DERRICK introduced self and role at [facility], pt voices understanding and consents to assessment. Pt is A&O x4 and answers all questions appropriately at this time. Pt sitting up in bed in no distress. Care providers, pharmacy, and demographics verified/updated. Admitting Dx: R THR Strata Score: 1 PCP:Christa Iverson PACKAGER HAND Specialists:[facility]; [facility], cardio; pulm-[place]; Pt to establish with [place] [facility] Preferred Pharmacy: [facility] Insurance: [facility] Prescription Benefit: yes LNOK: Vinicio Trejo, sig other; Tesha Braden, dtr Living Arrangements: Pt lives with sig other in a two story home with [facility] with 3 steps to enter with a rail. Pt reports prior to this surgery, she was I in ADL/IADLS and has groceries delivered. Pt states her sig other will assist her with IADLs once home. Pt denies concerns at home. Transportation: Pt drives self and denies concerns with transportation. Pt sig other will transport her until she can drive again. DME:FWW, shower chair, [facility] HHC/SNF: Denies hx of Pt states no concerns with going home at time of dc. Pt has OP therapy set up at [facility] on Monday. Pt states no further concerns/needs. CM to follow. Advised pt to ask CM if any further questions/concerns/needs arise, voices understanding. Pt Goal: Home with OP therapy set up Plan: Home with OP therapy set up Zee MCKEON CM
--- NOTE | 2025-03-12 12:43 | PCM.PN.ORT ---
Subjective Subjective Seen and examined. Doing okay complain of spasm medial thigh to the knee. She normally takes baclofen which was ordered postoperatively as well. Outside of this she is doing okay no fevers chills nausea vomiting shortness of breath or chest pain. Objective Data Objective Data Vital Signs: Vital Signs Temp Pulse Resp BP Pulse Ox O2 Del Method O2 Flow Rate 98.0 F 80 15 138/71 H 91 Room Air 4 03/12/25 07:37 03/12/25 07:52 03/12/25 07:37 03/12/25 07:37 03/12/25 07:37 03/12/25 07:51 03/11/25 15:11 Oxygen Flow Rate (L/min) 4 Oxygen Delivery Method Room Air Weight: 179 lb Body Mass Index (BMI) 32.7 Intake & Output: Intake and Output for Last 24 Hours 03/10/25 03/11/25 03/12/25 23:59 23:59 23:59 Intake Total 2644 / 2904 2560 / 2560 Output Total 175 / 175 Balance 2469 / 2729 2560 / 2560 Lab / Micro Data 03/12/25 06:20 03/12/25 06:20 Labs: Laboratory Results - last 24 hr 03/12/25 06:20: WBC 8.4, RBC 3.23 L, Hgb 9.2 L, Hct 29.4 L, MCV 91.0, MCH 28.5, MCHC 31.3 L, RDW Std Deviation 42.2, RDW Coeff of Jake 12.8, Plt Count 206, MPV 9.4, Immature Gran % (Auto) 0.400, Neut % (Auto) 79.3 H, Lymph % (Auto) 12.9 L, George % (Auto) 7.3, Eos % (Auto) 0.1, Baso % (Auto) 0.0, Absolute Neuts (auto) 6.7, Absolute Lymphs (auto) 1.08, Nucleated RBC % 0, Sodium 134, Potassium 4.8, Chloride 101, Carbon Dioxide 22.4, Anion Gap 11, BUN 15, Creatinine 0.69 L, Estim Creat Clear Calc 88.81, Est GFR (MDRD) Non-Af 101, BUN/Creatinine Ratio 21.6 H, Glucose 131 H, Calcium 9.1 Micro: Microbiology 12/02/25 10:13 Swab (Method) Nasal Screen MRSA/MSSA - Final Radiography Diagnostic Testing: Radiology Impression Hip X-Ray 03/11/25 13:45 IMPRESSION: Hardware in position. [facility] Physical Exam Const alert, oriented x3 and no apparent distress General Appearance: cooperative Extremity Extremity Narrative: Right hip dressing with minimal bloody drainage but intact compartments soft neurovascular intact right lower extremity EHL tibialis anterior gastrocsoleus intact sensation light touch palpable pedal pulse. Assessment & Plan Assessment/Plan (1) S/P total hip arthroplasty: QUALIFIERS: Laterality: right Qualified Code(s): Z96.641 - Presence of right artificial hip joint (2) Lumbar back pain with radiculopathy affecting right lower extremity: PLAN: Plan Postop day #1 right total hip arthroplasty PT OT weightbearing as tolerated with her precautions DVT prophylaxis SCDs GLADIS hose Eliquis 2.5 mg twice daily for 3 weeks postop Patient has chronic lumbar back pain with radiculopathy and on chronic baclofen I did resume her 10 mg 3 times daily but she is complaining of significant spasming in her medial thigh I went ahead and increased her baclofen to up to 15 mg 3 times daily while in the hospital. Continue with oxycodone 5 to 10 mg every 4 hours as needed and Tylenol acujcy-ana-rtomn DC planning home tomorrow.
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
[2025-03-12] MEDS: 0.9% Saline Lock 10 ML Syringe IV (20:34)
[2025-03-13 02:49] VITALS: BP 155/72; PULSE 98; RESP 18; TEMP 36.6; O2SAT 95
[2025-03-13 07:49] VITALS: BP 143/66; PULSE 85; RESP 16; TEMP 36.6; O2SAT 97
[2025-03-13] MEDS: Potassium Chloride Oral Tablet 20 MEQ PO (08:03)
[2025-03-13] MEDS: Ensure Surgery 237 ML LIQUID PO ×2 (08:05→12:21)
--- NOTE | 2025-03-13 10:03 | CASEMGMT ---
Social Work SW met with pt and assisted in completing a living will and Health Care POA naming her daughter Julee Braden as primary decision maker and daughter Kadie Pulido as secondary. Originals given to pt and copy placed in pt chart. JULIAN Crooks
[2025-03-13 10:05] VITALS: BP 143/66; PULSE 85
[2025-03-13] MEDS: hydrOXYzine PAM 25 MG Capsule PO (10:05)
[2025-03-13] MEDS: Magnesium Chloride 64 MG Delay Rel.Tablet 128 MG PO (10:05)
[2025-03-13] MEDS: Metoprolol(XL)Succ 25 MG Tablet PO (10:05)
[2025-03-13] MEDS: APIXABAN 2.5 MG TABLET (WCH) PO (10:09)
--- NOTE | 2025-03-13 11:41 | PCM.PN.ORT ---
Subjective Subjective Maryse is a pleasant 59-year-old female postop day 2 right NOE due to OA. Patient does have some pain to the right hip, mild swelling and spasms to the right anterior thigh. Symptoms are controlled with oral oxycodone, baclofen seems to be helping with the spasms. Has been out of bed several times, working with PT and OT, feels ready for discharge. Objective Data Objective Data Reviewed PT and OT notes from this morning, patient is progressing well. Vital Signs: Vital Signs Temp Pulse Resp BP Pulse Ox O2 Del Method O2 Flow Rate 97.9 F 85 16 143/66 H 97 Room Air 4 03/13/25 07:49 03/13/25 10:05 03/13/25 07:49 03/13/25 10:05 03/13/25 07:49 03/13/25 07:53 03/11/25 15:11 Oxygen Flow Rate (L/min) 4 Oxygen Delivery Method Room Air Weight: 179 lb Body Mass Index (BMI) 32.7 Intake & Output: Intake and Output for Last 24 Hours 03/11/25 03/12/25 03/13/25 23:59 23:59 23:59 Intake Total 2644 / 2904 2560 / 2560 500 / 500 Output Total 175 / 175 Balance 2469 / 2729 2560 / 2560 500 / 500 Lab / Micro Data Attestation: I reviewed the patient's lab results. 03/12/25 06:20 03/12/25 06:20 Micro: Microbiology 03/04/25 10:13 Swab (Method) Nasal Screen MRSA/MSSA - Final Radiography Diagnostic Testing: FINDINGS: There is a total hip prosthesis in position. Pelvic bones appear intact. There is soft tissue air with overlying flaco consistent with recent surgery. Physical Exam Const alert, oriented x3 and no apparent distress Constitutional Narrative: Patient sitting in bed, eating lunch. No apparent distress. General Appearance: cooperative and well developed HEENT normocephalic Resp normal respiratory effort Extremity Extremity Narrative: Right hip and right iliac crest dressings with minimal bloody drainage, previously outlined with no extension. Limited painful range of motion, no skin discoloration or additional drainage noted. There is mild swelling of the proximal thigh. Easily moves knee and lower extremity joints. Calves are soft, nontender and easily compressible, negative Homans. Distal motor or sensory intact with brisk cap refill at 2 seconds Assessment & Plan Assessment/Plan (1) S/P total hip arthroplasty: QUALIFIERS: Laterality: right Qualified Code(s): Z96.641 - Presence of right artificial hip joint (2) Lumbar back pain with radiculopathy affecting right lower extremity: PLAN: Plan Postop day #2 right total hip arthroplasty PT OT weightbearing as tolerated with hip precautions, has walker and cane at home DVT prophylaxis SCDs GLADIS hose, Eliquis 2.5 mg twice daily for 3 weeks postop Patient to resume prior dosing of 10 mg baclofen 3 times daily for spasms Continue with oxycodone 5 to 10 mg every 4 hours as needed and Tylenol [id number] Prescriptions sent to pharmacy We reviewed wound and dressing care, keep postsurgical dressing intact for the next 3 days, then may remove and gently shower daily using antibacterial soap and water, pat dry gently and allowed to air dry prior to applying new gauze dressing. Instructed to monitor site daily and as needed for any increased redness, discolored drainage, pain at site, streaking, fever, chills or other concerns to contact the office. Anticipate DC home today with boyfriend Follow-up in Ortho clinic in 2 weeks, sooner for changes or concerns Patient in agreement with plan of care This document has been transcribed using [employer] dictation software. There may be incorrect words, spelling, and punctuation.
[2025-03-13 12:27] VITALS: BP 151/64; PULSE 91; RESP 16; TEMP 36.5; O2SAT 96
--- NOTE | 2025-03-13 12:45 | CASEMGMT ---
Addendum entered by Hanna Soni 03/13/25 13:25: Received tc from pharmacy, no cost for eliquis. Original Note: TC to [facility] pharmacy, pt eliquis has not been filled yet. Pharmacy to call RN DERRICK back with cost when completed.
--- NOTE | 2025-03-13 13:39 | PHA.DC_ITS ---
Pharmacy [facility] has performed discharge medication counseling for this patient. The patient was counseled on the following discharge medications and changes in medications for homegoing review. - Eliquis 2.5 mg tablet, Oxycodone 5 mg tablet The Reason for Use, instructions for use, and potential side effects were reviewed for all new medications. The patient's questions regarding all of their medications were answered. The patient was able to verbally demonstrate an understanding of their discharge medications. Medications at Discharge Home Medications levothyroxine 75 mcg tablet 50 mcg PO DAILY THYROID DISEASE 01/08/15 albuterol sulfate 90 mcg/actuation aerosol inhaler 1 puff inhalation PRN PRN Asthma 04/29/20 cimetidine 200 mg tablet 200 mg PO DAILY GERD 04/29/20 omeprazole 40 mg capsule,delayed release 40 mg PO QDAY GERD 09/02/24 metoprolol succinate 25 mg tablet,extended release 24 hr 25 mg PO QDAY HTN 10/14/24 L.acidophilus-B.animalis-B.longum 15 billion cell capsule (Florajen Digestion) 1 cap PO DAILY SUPPLEMENT 02/11/25 baclofen 10 mg tablet 10 mg PO TID PRN muscle spasm 02/11/25 fenofibrate nanocrystallized 48 mg tablet 48 mg PO DAILY TRIGLYCERIDES 02/11/25 fluticasone furoate 200 mcg/actuation blister powder for inhalation (Arnuity Ellipta) 1 inh inhalation DAILY ASTHMA 02/11/25 hydroxyzine HCl 25 mg tablet 25 mg PO 4X/DAY ANXIETY 02/11/25 magnesium oxide 250 mg PO DAILY SUPPLEMENT 02/11/25 potassium chloride 20 mEq tablet,extended release 20 meq PO BID PER DR 02/11/25 pregabalin 50 mg capsule 50 mg PO BID PAIN 02/11/25 tramadol 50 mg tablet 50 mg PO 4X/DAY PRN pain 02/11/25 umeclidinium 62.5 mcg-vilanterol 25 mcg/actuation powdr for inhalation (Anoro Ellipta) 1 inh inhalation DAILY ASTHMA 02/11/25 apixaban 2.5 mg tablet (Eliquis) 2.5 mg PO BID #21 tabs 03/13/25 oxycodone 5 mg tablet 5 mg PO Q4H PRN pain 7 days #60 tabs 03/13/25
--- NOTE | 2025-03-14 10:06 | DS.PCM_ITS ---
Providers Date of Admission: 03/11/25 Primary Care Physician: THOMAS FraustoC Reason For Visit: Right Total Hip Replacement Robotic Arm Assisted Diagnosis Discharge Diagnosis (1) S/P total hip arthroplasty: Status: Acute Code(s): Z96.649 - Presence of unspecified artificial hip joint Qualifiers: Laterality: right Qualified Code(s): Z96.641 - Presence of right artificial hip joint (2) Lumbar back pain with radiculopathy affecting right lower extremity: Status: Acute Code(s): M54.16 - Radiculopathy, lumbar region Plan Postop day #1 right total hip arthroplasty PT OT weightbearing as tolerated with her precautions DVT prophylaxis SCDs GLADIS hose Eliquis 2.5 mg twice daily for 3 weeks postop Patient has chronic lumbar back pain with radiculopathy and on chronic baclofen I did resume her 10 mg 3 times daily but she is complaining of significant spasming in her medial thigh I went ahead and increased her baclofen to up to 15 mg 3 times daily while in the hospital. Continue with oxycodone 5 to 10 mg every 4 hours as needed and Tylenol [id number] DC planning home tomorrow. Medications at Discharge Home Medications levothyroxine 75 mcg tablet 50 mcg PO DAILY THYROID DISEASE 01/08/15 albuterol sulfate 90 mcg/actuation aerosol inhaler 1 puff inhalation PRN PRN Asthma 04/29/20 cimetidine 200 mg tablet 200 mg PO DAILY GERD 04/29/20 omeprazole 40 mg capsule,delayed release 40 mg PO QDAY GERD 09/02/24 metoprolol succinate 25 mg tablet,extended release 24 hr 25 mg PO QDAY HTN 10/14/24 L.acidophilus-B.animalis-B.longum 15 billion cell capsule (Florajen Digestion) 1 cap PO DAILY SUPPLEMENT 02/11/25 baclofen 10 mg tablet 10 mg PO TID PRN muscle spasm 02/11/25 fenofibrate nanocrystallized 48 mg tablet 48 mg PO DAILY TRIGLYCERIDES 02/11/25 fluticasone furoate 200 mcg/actuation blister powder for inhalation (Arnuity Ellipta) 1 inh inhalation DAILY ASTHMA 02/11/25 hydroxyzine HCl 25 mg tablet 25 mg PO 4X/DAY ANXIETY 02/11/25 magnesium oxide 250 mg PO DAILY SUPPLEMENT 02/11/25 potassium chloride 20 mEq tablet,extended release 20 meq PO BID PER DR 02/11/25 pregabalin 50 mg capsule 50 mg PO BID PAIN 02/11/25 tramadol 50 mg tablet 50 mg PO 4X/DAY PRN pain 02/11/25 umeclidinium 62.5 mcg-vilanterol 25 mcg/actuation powdr for inhalation (Anoro Ellipta) 1 inh inhalation DAILY ASTHMA 02/11/25 apixaban 2.5 mg tablet (Eliquis) 2.5 mg PO BID #21 tabs 03/13/25 oxycodone 5 mg tablet 5 mg PO Q4H PRN pain 7 days #60 tabs 03/13/25 Hospital Course Operations total hip replacement Summary of Care Provided Hospital Course: Patient with long-standing history of severe right hip DJD and AVN who is failed conservative treatment. Patient underwent total hip arthroplasty day of admission. Patient did receive pre-and postoperative antibiotics which were discontinued within 23 hours postoperatively. Patient did receive spinal anesthesia and postoperatively pain was controlled with both IV and p.o. pain medication. Patient did receive 2 g of tranexamic acid. hemoglobin and hematocrit were monitored postoperatively as well as vital signs and the patient did not require any blood transfusion. Dressing will be changed daily beginning postop day #3 before shower will be removed and replaced after. Pt was started on [Eliquis 2.5 mg] twice daily postop day #1 for which will continue for 3 weeks post hospital discharge . Patient was seen by physical therapy was ambulating the halls well. patient will be discharged We will start [outpatient physical as scheduled]. will follow-up in the office in 2 weeks. No intrahospital complications. Weight / BMI Weight Weight: 179 lb Body Mass Index (BMI) 32.7 ABG / Lab / Microbiology Data 03/12/25 06:20 03/12/25 06:20 Microbiology: Microbiology 03/04/25 10:13 Swab (Method) Nasal Screen MRSA/MSSA - Final D/C Instructions Call your doctor if you observe: Shortness of breath and Chest pain Additional Dressing/Incision Instructions: Do not shower for 72hrs. May Begin daily showering with warm water antibacterial soap postop day #3( 72hrs Post- operatively) and then daily. Leave the dressing on for 72 hours postoperatively then remove prior to first shower and change dressing daily after this until no drainage for 2 consecutive days then may leave open to air. If you decide not shower on Monday and wish to sponge bath only, then may leave dressing undisturbed for up to 1 week, but must remove prior to first shower. Do not submerge for 3 weeks. If not showering daily after the initial dressing is removed you must clean incision and change dressing daily after the dressing comes off, must come off by 7 days postop. Do not allow animals near the incision area. Keep clean. Follow hip precautions that were reviewed in hospital. Wear compression stockings, may remove at night. Start physical therapy as directed in hospital. Follow prescriptions instructions do not take any other pain medication or differ dosing without consulting your physician. Do not take oral NSAIDs until blood thinner has been completed , then may begin the day after completion if needed . Call Dr. Wang's office with any concerns. DC O2, CPAP, BIPAP Needs Home O2 Discharge instructions: No Please Follow Up With: Tyler Wang DO When: 2 weeks Meaningful Use Info Meaningful Use Meaningful Use Diagnoses (Choose all that apply): None applicable Discharge Plan Admission Admit Date/Time: 03/11/25 13:24 Primary Reason for Your Visit: Right NOE Attending Provider: Tyler Wang Primary Care Provider: Christa Iverson POLYMER SPECIALIST Instructions Patient Instructions: Hip Total Replacement Dc Additional Instructions / Restrictions: Keep surgical dressing on for additional 3 days, avoid getting wet. May shower after removing, use antibiotic soap and water. Allow tro dry before reapplying gauze dressing. Outpt PT as scheduled Call for wound concerns including: discolored drainage, pain to incision, redness, streaking, fever or chills. F/U in Ortho in 2 weeks Wear GLADIS hose during the day, ok to remove at night Eliquis twice daily until gone. Take 1,000 mg Tylenol (2 extra strength) 3x/daily for 1 weeks, then may decrease to as needed Oxycodone every 4 hrs as needed for moderate to severe pain Resume home medication, avoid Tramadol while taking Oxycodone Resume Baclofen dosing as previously prescribed Discharge Orders/Prescriptions Prescriptions: New Eliquis 2.5 mg tablet 2.5 mg PO BID Qty: 21 0RF oxycodone 5 mg tablet 5 mg PO Q4H PRN (Reason: pain) 7 Days Qty: 60 0RF Rx Instructions: Take 1-2 tablets every 4 hrs NEEDED for moderate to severe pain Do not take any other pain medications (other than Tylenol) while taking this medication No Action omeprazole 40 mg capsule,delayed release(DR/EC) 40 mg PO QDAY metoprolol succinate 25 mg tablet extended release 24 hr 25 mg PO QDAY levothyroxine 75 MCG tablet 50 mcg PO DAILY cimetidine 200 MG tablet 200 mg PO DAILY albuterol sulfate 1 PUFF inhaler 1 puff INHALATION PRN PRN (Reason: Asthma) fluticasone furoate [Arnuity Ellipta] 200 mcg/actuation blister with device 1 inh INHALATION DAILY umeclidinium-vilanterol [Anoro Ellipta] 62.5-25 mcg/actuation blister with device 1 inh inhalation DAILY fenofibrate nanocrystallized 48 mg tablet 48 mg PO DAILY tramadol 50 mg tablet 50 mg PO 4X/DAY PRN (Reason: pain) baclofen 10 mg tablet 10 mg PO TID PRN (Reason: muscle spasm) pregabalin 50 mg capsule 50 mg PO BID hydroxyzine HCl 25 mg tablet 25 mg PO 4X/DAY potassium chloride 20 mEq tablet extended release 20 meq PO BID Florajen Digestion 15 billion cell capsule 1 cap PO DAILY magnesium oxide 250 mg magnesium tablet 250 mg PO DAILY Referrals / Follow Up: Christa Iverson POLYMER SPECIALIST, POLYMER SPECIALIST-C [Primary Care Provider, Family Practice] Disposition Disposition (needs filled in before D/C Order can be placed): Home, Self Care
== END 2025-03-13 14:12 | disposition home or self-care (01) | DRG 324 ==
PROVIDERS: Admitting Provider Orthopaedic Surgery; PCP Nurse Practitioner Family; Referring Provider Orthopaedic Surgery; Visit Provider Orthopaedic Surgery
PROC: 8E0Y0CZ Robotic Assisted Procedure of Lower Extremity, Open Approach (ICD-10-PCS; CPT 27130; principal; 2025-03-11 10:15)
DX: M16.11 Unilateral primary osteoarthritis, right hip (principal); J43.9 Emphysema, unspecified; M47.26 Other spondylosis with radiculopathy, lumbar region; M79.7 Fibromyalgia; Z87.891 Personal history of nicotine dependence; Z79.51 Long term (current) use of inhaled steroids; Z79.899 Other long term (current) drug therapy; Z96.641 Presence of right artificial hip joint
CPT/HCPCS: 36415; 73502; 80048; 80323; 82962; 82985; 83036; 85025; 85610; 85730; 86850; 86900; 86901; 87081; 88304; 88311; 93005; 94640; 94668; 97162; 97166; 97530; 97535; C1776; A4216; G0480; J2405